=== PATIENT | female | born 1950 | race Caucasian/White ===

== ENCOUNTER 2018-05-29 01:17 | Outpatient (CLI) | payer MEDICARE, OTHER, SELFPAY ==
--- NOTE | 2018-05-29 13:00 | DI.CTLCSR_ITS ---
SYMPTOMS/DIAGNOSIS: SCREENING, FORMER SMOKER, Z87.[address], LUNG CANCER SCREENING PROTOCOL: Examination is compared to the previous examination of 09/10/17. Previous examination showed a 9 mm in diameter left basilar intrapulmonary nodule, which was subpleural in location. This is unchanged on the current examination. A few 3-4 mm nodules are also identified in the right lung, unchanged from the previous examination. No other significant new nodule or consolidation seen. No mediastinal or hilar adenopathy. The tracheobronchial tree appears intact. Visualized vascular structures are unremarkable. No pleural effusions seen. Images obtained through the upper abdomen show unremarkable appearance of visualized portions of the liver, spleen, and pancreas, and left adrenal and left kidney. CONCLUSION: Stable 9 mm left lower lobe nodule. Category 2, continue annual screening with LDCT in 12 months. Lung-RAD Category: 2- Benign Appearance/Behavior Lung- RAD Management of Findings: Continue annual LDCT screening in 12 months
== END 2018-05-29 01:37 ==
PROVIDERS: PCP Internal Medicine; Visit Provider Internal Medicine
DX: Z12.2 Encounter for screening for malignant neoplasm of respiratory organs (principal); Z87.891 Personal history of nicotine dependence; R91.1 Solitary pulmonary nodule
CPT/HCPCS: G0297

== ENCOUNTER 2018-07-25 12:46 | Inpatient (IN) | payer MEDICARE, OTHER, SELFPAY ==
[2018-07-25] VITALS (14 sets, daily range): BP systolic 131–154; BP diastolic 55–78; PULSE 59–80; RESP 14–27; TEMP 36.7–37.9; O2SAT 95–98
--- NOTE | 2018-07-25 12:51 | W.ED.GENAD ---
Discharge Plan Disposition Patient Disposition: [facility] INPATIENT Condition: Stable Discharge Details Chief Complaint: RespSymp Clinical Impression: Acute hypokalemia, General weakness Primary Care Provider: Mary Dorsey ED Provider: Chris Meyer Home Meds and New Rx's Prescriptions: No Action calcium carbonate-vitamin D3 [Calcium 500 + D] 1 EACH tablet 1 ea PO DAILY RF: 0 folic acid 1 MG tablet 800 mcg PO DAILY RF: 0 cetirizine [Zyrtec] 10 MG capsule 10 mg PO PRN RF: 0 selenomethionine 200 MCG tablet 200 mcg PO DAILY RF: 0 aspirin 81 MG tablet,chewable 81 mg PO DAILY RF: 0 multivitamin [Daily Multi-Vitamin] 1 EACH tablet 1 ea PO DAILY RF: 0 amlodipine 5 MG tablet 5 mg PO HS Qty: 90 RF: 2 pravastatin 40 MG tablet 40 mg PO DAILY Qty: 90 RF: 3 gabapentin 300 MG capsule PO TID Qty: 450 RF: 3 atenolol 50 mg tablet 75 mg PO HS Qty: 135 RF: 3 ranitidine HCl 150 mg tablet 150 mg PO BID Qty: 180 RF: 3 ibuprofen 600 MG tablet 600 mg PO TID Qty: 30 RF: 0 Medical Decision Making 68 yo female comes in with cough and general waekness since Monday. Denies recent travel, chest pain or pressure. Has clear lungs and is speaking in full sentences with normal lung sounds. Will evaluate for anemia, electrolyte abnormality and obtain chest xray as well to eval for infiltrate labs show K of 2.5 and she now states she has been having vomit for severeal days, still has no abdominal tenderness. She feels too weak to go home and can't tolerate PO. Will admit for potassium repletion given she can't tolerate PO Differential Diagnosis pna, influenza, viral illness Imaging Data Radiologic Study: Radiologist's impression: no acute findings Lab Data Lab results reviewed: Yes I reviewed the patient's lab results. ECG Data Attestation: I personally reviewed and interpreted this ECG (s) as follows: Prior ECG tracings: not available for review Interpretation: sinus rhythm, rate of 64, normal pr, no acute ischemic findings HPI General Mode of arrival: wheelchair. Date/Time Provider Initiated Documentation: 07/25/18 12:46. Limitations to Documentation: no limitations. Information obtained by: patient. History of Present Illness 68 year old F presents to the emergency department with the chief complaint of cough, described as moderate, Patient started experiencing this day(s) (4) and it has been constant. No relieving factors improve symptom(s), No exacerbating factors reported . Patient notes weakness. Patient did receive the following treatments prior to arrival, none Related Data Home Medications Medication Instructions Recorded Confirmed calcium carbonate-vitamin D3 1 ea PO DAILY 09/06/16 06/26/18 [Calcium 500 + D] cetirizine [Zyrtec] 10 mg PO PRN 01/19/17 06/26/18 folic acid 800 mcg PO DAILY tab-cap 01/19/17 06/26/18 selenomethionine 200 mcg PO DAILY 06/21/17 06/26/18 aspirin 81 mg PO DAILY tab-cap 07/26/17 06/26/18 multivitamin [Daily Multi-Vitamin] 1 ea PO DAILY 09/26/17 06/26/18 ibuprofen 600 mg PO TID #30 tab 10/25/17 06/26/18 amlodipine 5 mg PO HS #90 tab 12/13/17 06/26/18 gabapentin 0 PO TID #450 tab-cap 04/24/18 06/26/18 pravastatin 40 mg PO DAILY #90 tab-cap 04/24/18 06/26/18 atenolol 50 mg tablet 75 mg PO HS #135 tab 07/06/18 ranitidine 150 mg tablet 150 mg PO BID #180 tab-cap 07/06/18 Previous Rx's Medication Instructions Recorded ibuprofen 600 mg PO TID #30 tab 10/25/17 amlodipine 5 mg PO HS #90 tab 12/13/17 pravastatin 40 mg PO DAILY #90 tab-cap 04/24/18 atenolol 50 mg tablet 75 mg PO HS #135 tab 07/06/18 ranitidine 150 mg tablet 150 mg PO BID #180 tab-cap 07/06/18 Allergies Allergy/AdvReac Type Severity Reaction Status Date / Time codeine AdvReac Intermediate Nausea Unverified 06/26/18 12:23 hydrochlorothiazide AdvReac Mild hypomagnese Unverified 06/26/18 12:23 pop duloxetine AdvReac Other (See Unverified 06/26/18 12:23 Comment) narcotics AdvReac Intermediate Nausea, Uncoded 06/26/18 12:23 vomiting Review of Systems Review of Systems All systems reviewed & are unremarkable except as noted in HPI and below Constitutional Denies chills and Denies fever(s) Eyes Denies loss of vision ENT Denies change in voice Cardiovascular Denies chest pain and Denies dyspnea Respiratory Denies dyspnea Gastrointestinal Denies abdominal pain, Denies nausea and Denies vomiting Genitourinary Denies dysuria Musculoskeletal Denies joint swelling Integumentary/Breasts Denies rash Neurologic Denies loss of vision Allergic/Immunologic Denies urticaria PFSH Family History Father Essential hypertension Glaucoma Medical History Essential hypertension Hx of bacterial pneumonia Spinal stenosis Social History household members: none current occupational status: retired frequency: 3-4 times per week Smoking/Tobacco Use Status: Former Tobacco Use alcohol intake: never substance use type: marijuana Surgical History Anterior Fusion Cervical Spine C3-C5 (07/31/16) Arthroplasty of knee Breast, Lumpectomy Colonoscopy - MAC (03/12/18) Hemiarthroplasty (09/07/15) Repair of umbilical hernia Rotator Cuff Repair Tenotomy and debridement tendon L shoulder (10/25/17) Exam Const General: no acute distress Orientation: alert HENMT Head: normal to inspection Ears: external ears normal General nose exam: external nose normal Mouth: moist mucous membranes Eyes General: appearance normal, both eyes and all related structures Neck Neck: normal visual inspection Resp Effort & Inspection: normal respiratory effort and able to speak in complete sentences Cardio Rate: regular rate Skin General skin exam: no rashes or lesions noted Neuro General: alert and oriented x3 Extrem General: normal to inspection Psych Mental Status: mental status grossly normal
--- NOTE | 2018-07-25 12:56 | ED.GENADUL_ITS ---
Discharge Plan Disposition Patient Disposition: [facility] INPATIENT Condition: Stable Discharge Details Chief Complaint: RespSymp Clinical Impression: Acute hypokalemia, General weakness Primary Care Provider: Mary Dorsey ED Provider: Chris Meyer Home Meds and New Rx's Prescriptions: No Action calcium carbonate-vitamin D3 [Calcium 500 + D] 1 EACH tablet 1 ea PO DAILY RF: 0 folic acid 1 MG tablet 800 mcg PO DAILY RF: 0 cetirizine [Zyrtec] 10 MG capsule 10 mg PO PRN RF: 0 selenomethionine 200 MCG tablet 200 mcg PO DAILY RF: 0 aspirin 81 MG tablet,chewable 81 mg PO DAILY RF: 0 multivitamin [Daily Multi-Vitamin] 1 EACH tablet 1 ea PO DAILY RF: 0 amlodipine 5 MG tablet 5 mg PO HS Qty: 90 RF: 2 pravastatin 40 MG tablet 40 mg PO DAILY Qty: 90 RF: 3 gabapentin 300 MG capsule PO TID Qty: 450 RF: 3 atenolol 50 mg tablet 75 mg PO HS Qty: 135 RF: 3 ranitidine HCl 150 mg tablet 150 mg PO BID Qty: 180 RF: 3 ibuprofen 600 MG tablet 600 mg PO TID Qty: 30 RF: 0 Medical Decision Making 68 yo female comes in with cough and general waekness since Monday. Denies recent travel, chest pain or pressure. Has clear lungs and is speaking in full sentences with normal lung sounds. Will evaluate for anemia, electrolyte abnormality and obtain chest xray as well to eval for infiltrate labs show K of 2.5 and she now states she has been having vomit for severeal days, still has no abdominal tenderness. She feels too weak to go home and can' t tolerate PO. Will admit for potassium repletion given she can't tolerate PO Differential Diagnosis pna, influenza, viral illness Imaging Data Radiologic Study: Radiologist's impression: no acute findings Lab Data Lab results reviewed: Yes I reviewed the patient's lab results. ECG Data Attestation: I personally reviewed and interpreted this ECG (s) as follows: Prior ECG tracings: not available for review Interpretation: sinus rhythm, rate of 64, normal pr, no acute ischemic findings HPI General Mode of arrival: wheelchair . Date/Time Provider Initiated Documentation: 07/25/18 12:46 . Limitations to Documentation: no limitations . Information obtained by: patient . History of Present Illness 68 year old F presents to the emergency department with the chief complaint of cough, described as moderate, Patient started experiencing this day(s) (4) and it has been constant. No relieving factors improve symptom(s), No exacerbating factors reported . Patient notes weakness. Patient did receive the following treatments prior to arrival, none Related Data Home Medications Medication Instructions Recorded Confirmed calcium carbonate-vitamin D3 1 ea PO DAILY 09/06/16 06/26/18 [Calcium 500 + D] cetirizine [Zyrtec] 10 mg PO PRN 01/19/17 06/26/18 folic acid 800 mcg PO DAILY tab-cap 01/19/17 06/26/18 selenomethionine 200 mcg PO DAILY 06/21/17 06/26/18 aspirin 81 mg PO DAILY tab-cap 07/26/17 06/26/18 multivitamin [Daily Multi-Vitamin] 1 ea PO DAILY 09/26/17 06/26/18 ibuprofen 600 mg PO TID #30 tab 10/25/17 06/26/18 amlodipine 5 mg PO HS #90 tab 12/13/17 06/26/18 gabapentin 0 PO TID #450 tab-cap 04/24/18 06/26/18 pravastatin 40 mg PO DAILY #90 tab-cap 04/24/18 06/26/18 atenolol 50 mg tablet 75 mg PO HS #135 tab 07/06/18 ranitidine 150 mg tablet 150 mg PO BID #180 tab-cap 07/06/18 Previous Rx's Medication Instructions Recorded ibuprofen 600 mg PO TID #30 tab 10/25/17 amlodipine 5 mg PO HS #90 tab 12/13/17 pravastatin 40 mg PO DAILY #90 tab-cap 04/24/18 atenolol 50 mg tablet 75 mg PO HS #135 tab 07/06/18 ranitidine 150 mg tablet 150 mg PO BID #180 tab-cap 07/06/18 Allergies Allergy/AdvReac Type Severity Reaction Status Date / Time codeine AdvReac Intermediate Nausea Unverified 06/26/18 12:23 hydrochlorothiazide AdvReac Mild hypomagnese Unverified 06/26/18 12:23 pop duloxetine AdvReac Other (See Unverified 06/26/18 12:23 Comment) narcotics AdvReac Intermediate Nausea, Uncoded 06/26/18 12:23 vomiting Review of Systems Review of Systems All systems reviewed & are unremarkable except as noted in HPI and below Constitutional Denies chills and Denies fever(s) Eyes Denies loss of vision ENT Denies change in voice Cardiovascular Denies chest pain and Denies dyspnea Respiratory Denies dyspnea Gastrointestinal Denies abdominal pain, Denies nausea and Denies vomiting Genitourinary Denies dysuria Musculoskeletal Denies joint swelling Integumentary/Breasts Denies rash Neurologic Denies loss of vision Allergic/Immunologic Denies urticaria PFSH Family History Father Essential hypertension Glaucoma Medical History Essential hypertension Hx of bacterial pneumonia Spinal stenosis Social History household members: none current occupational status: retired frequency: 3-4 times per week Smoking/Tobacco Use Status: Former Tobacco Use alcohol intake: never substance use type: marijuana Surgical History Anterior Fusion Cervical Spine C3-C5 (07/31/16) Arthroplasty of knee Breast, Lumpectomy Colonoscopy - MAC (03/12/18) Hemiarthroplasty (09/07/15) Repair of umbilical hernia Rotator Cuff Repair Tenotomy and debridement tendon L shoulder (10/25/17) Exam Const General: no acute distress Orientation: alert HENMT Head: normal to inspection Ears: external ears normal General nose exam: external nose normal Mouth: moist mucous membranes Eyes General: appearance normal, both eyes and all related structures Neck Neck: normal visual inspection Resp Effort & Inspection: normal respiratory effort and able to speak in complete sentences Cardio Rate: regular rate Skin General skin exam: no rashes or lesions noted Neuro General: alert and oriented x3 Extrem General: normal to inspection Psych Mental Status: mental status grossly normal
[2018-07-25 13:12] LABS: Lactate-non-spesis 1.2 mmol/L (0.6-1.4)
[2018-07-25 13:13] LABS: Abs Immature Grans 0.03 k/cumm (0.0-0.09); Absolute Basophil Count 0.02 k/cumm (0.0-0.2); Absolute Eosinophil Count 0.05 k/cumm (0.0-0.7); Absolute Lymphocyte Count 1.44 k/cumm (1.2-3.4); Absolute Monocyte Count 1.01 k/cumm (0.11-0.7); Absolute Neutrophil Count 7.23 k/cumm (1.2-6.7); Basophils % 0.2; Eosinophils % 0.5; HGB 13.3 g/dL (12.0-15.5); Immature Grans % 0.3; Lymphocytes % 14.7; Mean Corpuscular Hemoglobin 30.6 pg (27.0-33.0); Mean Corpuscular Volume 87.6 fL (80-95); Mean Platelet Volume 11.3 fL (8.0-11.0); Monocytes % 10.3; Platelet Count 177 x1000/uL (130-400); RBC 4.34 m/cumm (4.00-5.20); RBC Distribution Width 12.4 % (11.7-14.6); White Blood Cell Count 9.78 k/cumm (4.4-10.8)
[2018-07-25] MEDS: Normal Saline 1,000 ML 1000 ML IV (13:20)
[2018-07-25 13:28] LABS: INR 1.1 (1.0-3.5); PTT Activated 23.2 sec (21.0-31.4); Prothrombin Time 11.1 sec (9.3-10.8)
--- NOTE | 2018-07-25 13:28 | DI.RAD_ITS ---
SYMPTOM/DIAGNOSIS: COUGH AP AND LATERAL CHEST: The lungs are well expanded and free of infiltrate. There is no pleural effusion. The cardiovascular structures are intact. Note is made of a mild rotoscoliotic deformity of the mid and lower dorsal spine. Note is also made of a left TSR. An anchor is affixed to the head of the right humerus consistent with prior surgery as well. IMPRESSION: No evidence of acute cardiopulmonary disease.
[2018-07-25 13:47] LABS: ALT 29 U/L (12-78); AST 41 U/L (15-37); Albumin 3.5 g/dL (3.4-5.0); Alkaline Phosphatase 78 U/L (46-116); Anion Gap 12.2 mmol/L (3-11); BUN 24 mg/dL (7-18); Bilirubin, Direct 0.24 mg/dL (0.00-0.20); Bilirubin, Total 1.1 mg/dL (0.2-1.0); CO2 25.8 mmol/L (21.0-32.0); CREATININE 0.74 mg/dL (0.55-1.02); Calcium 9.1 mg/dL (8.5-10.1); Chloride 96 mmol/L (98-107); Glucose 108 mg/dL (70-100); Lipase 121 U/L (73-393); Sodium 134 mmol/L (136-145); Total Protein 7.3 g/dL (6.4-8.2)
[2018-07-25 13:50] LABS: Potassium 2.5 mmol/L (3.5-5.1)
[2018-07-25] MEDS: Ondansetron 4 MG/2 ML VIAL IVP (14:24)
[2018-07-25] MEDS: POTASSIUM CHLORIDE 20 MEQ/100 ML BAG 50 MEQ IVPB ×2 (14:25→16:36)
[2018-07-25] MEDS: Normal Saline 1,000 ML 150 ML IV ×2 (15:30→21:30)
[2018-07-25 15:59] LABS: Magnesium 1.4 mg/dL (1.8-2.4)
[2018-07-25] MEDS: Enoxaparin 40 MG/0.4 ML SYR SC (16:14)
--- NOTE | 2018-07-25 17:17 | W.PM.HP.N ---
Date of service: 07/25/18 Time of Service: 17:18 Assessment and Plan (1) Cough: Current visit: Yes Status: Acute She notes that her cough seems to be improving. She is producing less sputum. She also has associated nausea and vomiting. Chest x-ray negative. No leukocytosis. No fever. Continue to monitor respiratory status. Consider repeat chest x-ray if indicated. Reassess labs in the morning. Have antiemetics available for PRN use. Clear liquid diet. Continue supportive measures. (2) Essential hypertension: Current visit: No Status: Acute Blood pressure currently stable. Continue to monitor blood pressures. Continue home antihypertensive medications. (3) Hypomagnesemia: Current visit: No Status: Acute Received magnesium supplementation. Reassess magnesium level in the morning. (4) Hypokalemia: Current visit: Yes Status: Acute Received potassium supplementation. Reassess potassium in the morning. (5) DVT prophylaxis: Current visit: Yes Status: Acute Subcutaneous Lovenox. (6) Discharge planning issues: Current visit: Yes Status: Acute She is a full code. This case was discussed with Dr. Swani who is in agreement. History of Present Illness Chief Complaint: Cough, nausea and vomiting. Narrative: Belén is a pleasant 68-year-old female with a past medical history significant for hypertension, spinal stenosis, pneumonia, chronic medical marijuana use who presented to the emergency department today with a 3-day history of cough, nausea, vomiting and inability to maintain oral intake. In the emergency department she was noted to have hypokalemia with a potassium of 2.5 and received supplementation her anion gap was elevated at 12.2 BUN was elevated at 24, creatinine was normal at 04. Her magnesium was low at 1.4 which she received supplementation for. She had a white blood cell count that was within normal limits, she did not have anemia. There was concern for pneumonia she had a chest x-ray which showed no evidence of acute cardiopulmonary disease. She was unable to maintain oral intake and did have a critically low potassium so she was admitted to the [facility] floor for supplementation of her electrolytes, IV fluids and supportive measures. Review of Systems Review of Systems Constitutional: She denies having a fever but she did experience chills at home. HEENT: She did have a headache for 2 days but that has since resolved. Respiratory: She notes a cough with white sputum production, the sputum was initially described as frothy, her cough is improving but persistent. She notes mild shortness of breath. She denies wheezing. Cardiac: She denies chest pain/pressure, palpitations, edema. GI: She notes nausea and vomiting when she puts anything in her mouth. She also notes that she vomits after coughing fits. She has not been able to tolerate oral intake. Her appetite is poor. She does not have any abdominal pain except some muscular discomfort when she attempts to pull herself up in bed. She denies any diarrhea. She feels her last bowel movement was within the last 2 days. : She has some mild incontinence at baseline. No dysuria, hematuria, frequency or urgency of urination. Musculoskeletal: She has chronic pain to her cervical spine and peripheral neuropathy. She has no pain. Skin: No new rash or lesion. PFSH Family History Father Essential hypertension Glaucoma Medical History Essential hypertension Hx of bacterial pneumonia Spinal stenosis Social History household members: none current occupational status: retired frequency: 3-4 times per week Smoking/Tobacco Use Status: Former Tobacco Use alcohol intake: never substance use type: marijuana Surgical History Anterior Fusion Cervical Spine C3-C5 (07/31/16) Arthroplasty of knee Breast, Lumpectomy Colonoscopy - MAC (03/12/18) Hemiarthroplasty (09/07/15) Repair of umbilical hernia Rotator Cuff Repair Tenotomy and debridement tendon L shoulder (10/25/17) Meds Home Medications Medication Instructions Recorded Confirmed Type calcium carbonate-vitamin D3 1 ea PO DAILY 09/06/16 07/25/18 History [Calcium 500 + D] cetirizine [Zyrtec] 10 mg PO PRN 01/19/17 07/25/18 History folic acid 800 mcg PO DAILY tab-cap 01/19/17 07/25/18 History selenomethionine 200 mcg PO DAILY 06/21/17 07/25/18 History aspirin 81 mg PO DAILY tab-cap 07/26/17 07/25/18 History multivitamin [Daily Multi-Vitamin] 1 ea PO DAILY 09/26/17 07/25/18 History amlodipine 5 mg PO HS #90 tab 12/13/17 07/25/18 Rx gabapentin 300 mg PO TID #450 tab-cap 04/24/18 07/25/18 History pravastatin 40 mg PO DAILY #90 tab-cap 04/24/18 07/25/18 Rx atenolol 50 mg tablet 75 mg PO HS #135 tab 07/06/18 07/25/18 Rx ranitidine 150 mg tablet 150 mg PO BID #180 tab-cap 07/06/18 07/25/18 Rx ibuprofen 600 mg PO BID 07/25/18 07/25/18 History Allergies Allergy/AdvReac Type Severity Reaction Status Date / Time codeine AdvReac Intermediate Nausea Unverified 07/25/18 14:12 hydrochlorothiazide AdvReac Mild hypomagnese Unverified 07/25/18 14:12 ppo duloxetine AdvReac Other (See Unverified 07/25/18 14:12 Comment) narcotics AdvReac Intermediate Nausea, Uncoded 07/25/18 14:12 vomiting Exam Narrative Exam Narrative: General: awake, alert and oriented. Pleasant and cooperative. Appears mildly dry on exam. HEENT: normocephalic, atraumatic. Pupils equal round and reactive to light, mucous membranes are slightly dry. Neck: Supple without lymphadenopathy or JVD. Respiratory: Respirations are even and unlabored. Lung sounds are clear to auscultation throughout all barron, no rales, rhonchi or wheezing noted. Cardiovascular: Heart has a regular rate and rhythm, no tachycardia. No murmur, click, gallop or rub. GI: Abdomen soft, nontender on palpation, no masses appreciated. Hypoactive bowel sounds throughout. Extremities: Without clubbing, cyanosis or edema. She has MAX stockings on bilaterally. Peripheral pulses are palpable bilaterally. Skin: no prominent rash or lesion noted.: Results Labs : 07/25/18 13:05 07/25/18 13:05 Laboratory Results - last 24 hr 07/25/18 07/25/18 07/25/18 13:05 13:05 13:05 WBC 9.78 RBC 4.34 Hgb 13.3 Hct 38.0 MCV 87.6 MCH 30.6 MCHC 35.0 RDW 12.4 Plt Count 177 MPV 11.3 H Immature Gran % 0.3 Neutrophils % 74.0 Lymphocytes % 14.7 Monocytes % 10.3 Eosinophils % 0.5 Basophils % 0.2 Absolute Neutrophils 7.23 H Absolute Lymphocytes 1.44 Absolute Monocytes 1.01 H Absolute Eosinophils 0.05 Absolute Basophils 0.02 PT INR APTT Sodium 134 L Potassium 2.5 L* Chloride 96 L Carbon Dioxide 25.8 Anion Gap 12.2 H BUN 24 H Creatinine 0.74 Estimated GFR/1.73 m2 >= 60.00 Glucose 108 H Lactate 1.2 Calcium 9.1 Magnesium 1.4 L Total Bilirubin 1.1 H Conjugated Bilirubin 0.24 H AST 41 H ALT 29 Alkaline Phosphatase 78 Total Protein 7.3 Albumin 3.5 Lipase 121 07/25/18 13:05 WBC RBC Hgb Hct MCV MCH MCHC RDW Plt Count MPV Immature Gran % Neutrophils % Lymphocytes % Monocytes % Eosinophils % Basophils % Absolute Neutrophils Absolute Lymphocytes Absolute Monocytes Absolute Eosinophils Absolute Basophils PT 11.1 H INR 1.1 APTT 23.2 Sodium Potassium Chloride Carbon Dioxide Anion Gap BUN Creatinine Estimated GFR/1.73 m2 Glucose Lactate Calcium Magnesium Total Bilirubin Conjugated Bilirubin AST ALT Alkaline Phosphatase Total Protein Albumin Lipase Last Vital Signs Temp 37.3 C 07/25/18 16:00 Pulse 69 07/25/18 16:00 Resp 18 07/25/18 16:00 BP 150/62 H 07/25/18 16:00 Pulse Ox 97 07/25/18 16:00
[2018-07-25] MEDS: MAGNESIUM SULFATE 1 GM/100 ML BAG IVPB (18:55)
[2018-07-25] MEDS: Gabapentin 300 MG CAP 600 MG PO (19:41)
[2018-07-25] MEDS: Atenolol 50 MG TAB 75 MG PO (19:41)
[2018-07-25] MEDS: amLODIPine 5 MG TAB PO (19:42)
[2018-07-26] VITALS: BP 143/75; PULSE 66; RESP 18; TEMP 36.6; O2SAT 96
[2018-07-26] MEDS: Normal Saline 1,000 ML 150 ML IV ×2 (04:19→10:09)
[2018-07-26 07:35] VITALS: BP 145/66; PULSE 60; RESP 16; TEMP 36.8; O2SAT 95
[2018-07-26 07:39] LABS: Abs Immature Grans 0.01 k/cumm (0.0-0.09); Absolute Basophil Count 0.02 k/cumm (0.0-0.2); Absolute Eosinophil Count 0.21 k/cumm (0.0-0.7); Absolute Lymphocyte Count 1.76 k/cumm (1.2-3.4); Absolute Monocyte Count 0.76 k/cumm (0.11-0.7); Basophils % 0.3; Eosinophils % 2.9; HGB 11.3 g/dL (12.0-15.5); Immature Grans % 0.1; Lymphocytes % 24.2; Mean Corp. HGB Concentration 33.2 g/dL (32.0-36.0); Mean Corpuscular Hemoglobin 30.1 pg (27.0-33.0); Mean Corpuscular Volume 90.7 fL (80-95); Mean Platelet Volume 11.8 fL (8.0-11.0); Monocytes % 10.5; Platelet Count 144 x1000/uL (130-400); RBC 3.75 m/cumm (4.00-5.20); RBC Distribution Width 12.9 % (11.7-14.6); White Blood Cell Count 7.26 k/cumm (4.4-10.8)
[2018-07-26 08:04] LABS: ALT 20 U/L (12-78); AST 24 U/L (15-37); Albumin 2.6 g/dL (3.4-5.0); Alkaline Phosphatase 60 U/L (46-116); Anion Gap 7.7 mmol/L (3-11); BUN 18 mg/dL (7-18); CO2 23.3 mmol/L (21.0-32.0); CREATININE 0.73 mg/dL (0.55-1.02); Calcium 7.9 mg/dL (8.5-10.1); Chloride 106 mmol/L (98-107); Glucose 106 mg/dL (70-100); Magnesium 1.5 mg/dL (1.8-2.4); Potassium 3.2 mmol/L (3.5-5.1); Sodium 137 mmol/L (136-145); Total Protein 5.6 g/dL (6.4-8.2)
[2018-07-26] MEDS: Aspirin 81 MG CHEW PO (08:52)
[2018-07-26] MEDS: Folic Acid 1 MG TAB PO (08:52)
[2018-07-26] MEDS: Pravastatin 40 MG TAB PO (08:52)
[2018-07-26] MEDS: Multivitamin TAB 1 TAB PO (08:52)
[2018-07-26] MEDS: Gabapentin 300 MG CAP 600 MG PO ×2 (08:53→20:12)
--- NOTE | 2018-07-26 10:53 | PHARADMIT ---
Addendum entered by Cong De Anda III 07/27/18 12:44: Pharmacy Note Subjective URINE MIXED CULTURE on Rocephin IV. Patient experiencing some nausea, on IV antiemetics. Has non-productive cough. Objective VS-OK K+4.2 Mag-1.7 H&H-Plts,SCr, WBC-OK No BM yet Assessment On Lovenox, Rocephin continues. Plan Speech consult ordered, to evaluate swalllowing. Original Note: Admission Pharmacy Clinical Review nausea/vomiting, Hypokalemia Code Status Full Code Current Weight Wgt- 57.5 kg Renally Cleared and Narrow Therapeutic Index Meds CrCl~53.23 mL/min Meds-OK QTc Value / Action Taken QTc-446 Ondanestron BP Control, Fever BP-145/66 Tmax- 37.9C Electrolytes reviewed Na- 137 K+3.2 Mag-1.5 DVT Prophylaxis Lovenox Opiate Usage / Scheduled Bowel Regimen Ordered No Yes Plt/SCr for Heparin / Enoxaparin Plts-144 SCr-0.73 INR for Warfarin inr-1.1 H/H stable, WBC/Bands H&H- 11.3/34.0 WBC-7.26 Antibiotic appropriateness None Cultures and Sensitivities Nose- Flu-negative Surgical ABX d/c within 24 hr NA DM control / Insulin Dosing BG-106 Heart Failure (Check EF%) (ANA's, B-Block, Diuretics) Norvasc,Atenolol, IV to PO Switch No Home Meds Reviewed Yes Home Meds Not Ordered Ibuprofen Comments PatOwn-Selenium
--- NOTE | 2018-07-26 11:36 | CHAPLAIN ---
Belén was resting in bed when I visited. She said she is feeling better and getting a little hungry, hoping to be able to have something to eat after her scheduled scan. She doesn't have any family in the area, but thinks some friends may be in to visit her. Belén has a dog and several cats that keep her company at home. The cats all found their way to her home and she took them in. She seems to be comfortable being here.
--- NOTE | 2018-07-26 11:59 | PGE_ITS ---
Assessment and Plan (1) Cough: Current visit: Yes Status: Acute Cough improving but persistent. She is producing less sputum. She had an elevated temperature overnight to 37.9. Chest x-ray in the ED was negative. No leukocytosis. Continue to monitor respiratory status. Given that lung exam has changed from admission, plan to repeat chest x-ray. Reassess labs in the morning. Have antiemetics available PRN for nausea. UA pending. Advance diet as tolerated. Continue supportive measures. (2) Essential hypertension: Current visit: No Status: Acute Blood pressure currently stable. Continue to monitor blood pressures. Continue home antihypertensive medications. (3) Hypomagnesemia: Current visit: No Status: Acute Remains low today at 1.5. Received magnesium supplementation. Reassess magnesium level in the morning. (4) Hypokalemia: Current visit: Yes Status: Acute Remains low, but improved at 3.2. Received potassium supplementation again today. Reassess potassium in the morning. (5) DVT prophylaxis: Current visit: Yes Status: Acute Subcutaneous Lovenox. (6) Discharge planning issues: Current visit: Yes Status: Acute She is a full code. This case was discussed with Dr. Swain who is in agreement. Subjective Interval history since last seen: Belén is a pleasant 68-year-old female with a past medical history significant for hypertension, spinal stenosis, pneumonia, chronic medical marijuana use who presented to the emergency department yesterday with a 3-day history of cough, nausea, vomiting and inability to maintain oral intake. In the emergency department she was noted to have hypokalemia with a potassium of 2.5 she received supplementation and potassium improved to 3.2 today. Her magnesium was low at 1.4, she received supplementation with improvement to 1.5 today. She had a white blood cell count that was within normal limits, she did not have anemia. There was concern for pneumonia she had a chest x-ray which showed no evidence of acute cardiopulmonary disease. her temperature maximum was 37.9 overnight. Today, she has not vomited, she continues to have intermittent nausea, she feels bloated, she is passing gas. She has not had a bowel movement today. She has no abdominal pain, she did have some muscular discomfort to the right side of her abdomen, which has resolved today. Her cough is improving, she has very little sputum production, it is white and thin, she does not feel short of breath, no wheezing. She continues to feel generally weak. She is taking clear liquids without difficulty. She would like to increase her diet. She denies chest pain/pressure, palpitations, no swelling, pain or stiffness of her joints. Exam Narrative Exam Narrative: General: awake, alert and oriented. Pleasant and cooperative. Sitting in bed, watching TV. HEENT: normocephalic, atraumatic. Pupils equal and round, mucous membranes moist. Neck: Supple without lymphadenopathy or JVD. Respiratory: Respirations are even and unlabored. Fine crackles to right base, rhonchi noted throughout lung barron. Cardiovascular: Heart has a regular rate and rhythm, no tachycardia. No murmur , click, gallop or rub. GI: Abdomen soft, nontender on palpation, no masses appreciated. Normoactive bowel sounds throughout. Extremities: Without clubbing, cyanosis or edema. She has MAX stockings on bilaterally. Peripheral pulses are palpable bilaterally. Skin: no prominent rash or lesion noted.: Objective Objective Clinical Data: Abnormal lab results 07/25/18 07/25/18 07/25/18 Range/Units 13:05 13:05 13:05 RBC (4.00-5.20) m/cumm Hgb (12.0-15.5) g/dL Hct (36.0-46.0) % MPV 11.3 H (8.0-11.0) fL Absolute Neutrophils 7.23 H (1.2-6.7) k/cumm Absolute Monocytes 1.01 H (0.11-0.7) k/cumm PT 11.1 H (9.3-10.8) sec Sodium 134 L (136-145) mmol/L Potassium 2.5 L* (3.5-5.1) mmol/L Chloride 96 L (98-107) mmol/L Anion Gap 12.2 H (3-11) mmol/L BUN 24 H (7-18) mg/dL Glucose 108 H (70-100) mg/dL Calcium (8.5-10.1) mg/dL Magnesium 1.4 L (1.8-2.4) mg/dL Total Bilirubin 1.1 H (0.2-1.0) mg/dL Conjugated Bilirubin 0.24 H (0.00-0.20) mg/dL AST 41 H (15-37) U/L Total Protein (6.4-8.2) g/dL Albumin (3.4-5.0) g/dL 07/26/18 07/26/18 Range/Units 06:20 06:20 RBC 3.75 L (4.00-5.20) m/cumm Hgb 11.3 L (12.0-15.5) g/dL Hct 34.0 L (36.0-46.0) % MPV 11.8 H (8.0-11.0) fL Absolute Neutrophils (1.2-6.7) k/cumm Absolute Monocytes 0.76 H (0.11-0.7) k/cumm PT (9.3-10.8) sec Sodium (136-145) mmol/L Potassium 3.2 L (3.5-5.1) mmol/L Chloride (98-107) mmol/L Anion Gap (3-11) mmol/L BUN (7-18) mg/dL Glucose 106 H (70-100) mg/dL Calcium 7.9 L (8.5-10.1) mg/dL Magnesium 1.5 L (1.8-2.4) mg/dL Total Bilirubin (0.2-1.0) mg/dL Conjugated Bilirubin (0.00-0.20) mg/dL AST (15-37) U/L Total Protein 5.6 L (6.4-8.2) g/dL Albumin 2.6 L (3.4-5.0) g/dL Vital Signs Temperature 36.8 C 07/26/18 07:35 Temperature Source Skin 07/26/18 07:35 Pulse 60 07/26/18 07:35 Pulse Rhythm Regular 07/26/18 00:00 Pulse 71 07/25/18 14:48 Respiratory Rate 16 07/26/18 07:35 Respiratory Effort Non-Labored 07/26/18 00:00 Respiratory Depth Normal 07/26/18 00:00 Respiratory Pattern Normal 07/26/18 00:00 Blood Pressure 145/66 H 07/26/18 07:35 Blood Pressure Mean 80 07/25/18 14:48 Blood Pressure Position Sitting 07/25/18 12:51 Pulse Oximetry 95 07/26/18 07:35 Oxygen Delivery Method Room Air 07/26/18 07:35 Oxygen Flow Rate 0 07/26/18 07:35 Pain Level 0 07/26/18 07:37 Comment 07/26/18 07:35 Intake & Output 07/25/18 07/25/18 07/26/18 11:59 23:59 11:59 Intake Total 2250 / 0 2375 / 2375 Output Total 400 / 400 Balance 2250 / 2250 1974 Weight 57.5 kg Intake: IV 2250 / 2250 2074 Oral 300 / 300 Output: Urine 400 / 400 Other: Urine Color Light Chen Urine Appearance Clear Comment voided in the toilet x 2 Voiding Methods Toilet Toilet Laboratory Results WBC 7.26 k/cumm (4.4-10.8) 07/26/18 06:20 RBC 3.75 m/cumm (4.00-5.20) L 07/26/18 06:20 Hgb 11.3 g/dL (12.0-15.5) L 07/26/18 06:20 Hct 34.0 % (36.0-46.0) L 07/26/18 06:20 MCV 90.7 fL (80-95) D 07/26/18 06:20 MCH 30.1 pg (27.0-33.0) 07/26/18 06:20 MCHC 33.2 g/dL (32.0-36.0) 07/26/18 06:20 RDW 12.9 % (11.7-14.6) 07/26/18 06:20 Plt Count 144 x1000/uL (130-400) 07/26/18 06:20 MPV 11.8 fL (8.0-11.0) H 07/26/18 06:20 Immature Gran % 0.1 07/26/18 06:20 Neutrophils % 62.0 07/26/18 06:20 Lymphocytes % 24.2 07/26/18 06:20 Monocytes % 10.5 07/26/18 06:20 Eosinophils % 2.9 07/26/18 06:20 Basophils % 0.3 07/26/18 06:20 Absolute Neutrophils 4.50 k/cumm (1.2-6.7) 07/26/18 06:20 Absolute Lymphocytes 1.76 k/cumm (1.2-3.4) 07/26/18 06:20 Absolute Monocytes 0.76 k/cumm (0.11-0.7) H 07/26/18 06:20 Absolute Eosinophils 0.21 k/cumm (0.0-0.7) 07/26/18 06:20 Absolute Basophils 0.02 k/cumm (0.0-0.2) 07/26/18 06:20 PT 11.1 sec (9.3-10.8) H 07/25/18 13:05 INR 1.1 (1.0-3.5) 07/25/18 13:05 APTT 23.2 sec (21.0-31.4) 07/25/18 13:05 Sodium 137 mmol/L (136-145) 07/26/18 06:20 Potassium 3.2 mmol/L (3.5-5.1) L 07/26/18 06:20 Chloride 106 mmol/L (98-107) 07/26/18 06:20 Carbon Dioxide 23.3 mmol/L (21.0-32.0) 07/26/18 06:20 Anion Gap 7.7 mmol/L (3-11) 07/26/18 06:20 BUN 18 mg/dL (7-18) D 07/26/18 06:20 Creatinine 0.73 mg/dL (0.55-1.02) 07/26/18 06:20 Estimated GFR/1.73 m2 >= 60.00 (mL/min/1.73m2) 07/26/18 06:20 Glucose 106 mg/dL (70-100) H 07/26/18 06:20 Lactate 1.2 mmol/L (0.6-1.4) 07/25/18 13:05 Calcium 7.9 mg/dL (8.5-10.1) L 07/26/18 06:20 Magnesium 1.5 mg/dL (1.8-2.4) L 07/26/18 06:20 Total Bilirubin 1.0 mg/dL (0.2-1.0) 07/26/18 06:20 Conjugated Bilirubin 0.24 mg/dL (0.00-0.20) H 07/25/18 13:05 AST 24 U/L (15-37) 07/26/18 06:20 ALT 20 U/L (12-78) 07/26/18 06:20 Alkaline Phosphatase 60 U/L (46-116) 07/26/18 06:20 Total Protein 5.6 g/dL (6.4-8.2) L 07/26/18 06:20 Albumin 2.6 g/dL (3.4-5.0) L 07/26/18 06:20 Lipase 121 U/L (73-393) 07/25/18 13:05
--- NOTE | 2018-07-26 12:08 | PDOC.CMIN ---
- If Service Date Differs Date of service: 07/26/18 Time of Service: 12:08 Care Management Initial Assess REASON FOR HOSPITALIZATION:: Hypertension, Hypomagensemia, Hypokalemia PAST MEDICAL HISTORY/PAST SURGICAL HISTORY:: Essential hypertension. Hx of bacterial pneumonia. Spinal stenosis. 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 Arthroplasty of knee. Breast, Lumpectomy. Colonoscopy - MAC (03/12/18). Hemiarthroplasty (09/07/15). Repair of umbilical hernia. Rotator Cuff Repair. Tenotomy and debridement tendon L shoulder (10/25/17) PREVIOUS FUNCTIONAL STATUS/SOCIAL/FAMILY SUPPORTS:: Belén resides alone in [facility], she states that she has family whom live 4+ hours away. Belén states that she has no children, and that she turns to her neighbors/friends for support. Ninoska is independent in the community, she drives, and states that she cares for her one dog and seven cats at home. CURRENT FUNCTIONAL STATUS:: Currently Belén is lying in bed this morning. She is pleasant and receptive to discussion. ADVANCE DIRECTIVES:: None on file Has patient been provided with information about the portal?: Yes Did the patient sign up for the portal?: No CODE STATUS:: Full Code INSURANCE COVERAGE / FINANCIAL ISSUES:: Medicare, Care and [employer] CURRENT HOME/COMMUNITY SERVICES/EQUIPMENT:: Currently Belén states that she goes to outpatient PT with Michael TOURE weekly. She states that this is due to spinal surgery she had. Belén states that she has a cane that she uses at home, as well as grab bars in her shower. PRIMARY CARE PHYSICIAN:: Dr. Dorsey POTENTIAL DISCHARGE NEEDS:: F/U appointment with PCP. Resume outpatient PT with Michael Avila in [facility] PATIENT/FAMILY EDUCATION NEEDS:: Review DC instructions, any limitations, and ongoing DC planning discussion. Discuss 'Ask Me Three' ANTICIPATED BARRIERS TO DISCHARGE:: None identified at this time. TRANSPORTATION:: Via private vehicle with neighbor PLAN:: Belén will return home with continued outpatient PT through Michael Avila in [facility]. She will F/U with PCP and plan of care as prescribed. Belén's neighbor/friend to transport when ready.
--- NOTE | 2018-07-26 12:24 | DI.RAD_ITS ---
SYMPTOM/DIAGNOSIS: F/U, COUGH, GENERAL WEAKNESS PA AND LATERAL CHEST: The lungs are free of infiltrate. There is some slight blunting of the costophrenic angles likely representing a very small pleural effusion. The heart is not enlarged. The hilar structures, mediastinum and tracheal air column are intact. SUMMARY: Question small bilateral pleural effusion, nil else.
--- NOTE | 2018-07-26 13:03 | INITIAL_ITS ---
- If Service Date Differs Date of service: 07/26/18 Time of Service: 12:08 Care Management Initial Assess REASON FOR HOSPITALIZATION:: Hypertension, Hypomagensemia, Hypokalemia PAST MEDICAL HISTORY/PAST SURGICAL HISTORY:: Essential hypertension. Hx of bacterial pneumonia. Spinal stenosis. Anterior Fusion Cervical Spine C3-C5 (). Arthroplasty of knee. Breast, Lumpectomy. Colonoscopy - MAC (). Hemiarthroplasty (09/07/15). Repair of umbilical hernia. Rotator Cuff Repair. Tenotomy and debridement tendon L shoulder (10/25/17) PREVIOUS FUNCTIONAL STATUS/SOCIAL/FAMILY SUPPORTS:: Belén resides alone in [facility], she states that she has family whom live 4+ hours away. Belén states that she has no children, and that she turns to her neighbors/friends for support. [place] is independent in the community, she drives, and states that she cares for her one dog and seven cats at home. CURRENT FUNCTIONAL STATUS:: Currently Belén is lying in bed this morning. She is pleasant and receptive to discussion. ADVANCE DIRECTIVES:: None on file Has patient been provided with information about the portal?: Yes Did the patient sign up for the portal?: No CODE STATUS:: Full Code INSURANCE COVERAGE / FINANCIAL ISSUES:: Medicare, [employer] CURRENT HOME/COMMUNITY SERVICES/EQUIPMENT:: Currently Belén states that she goes to outpatient PT with Michael TOURE weekly. She states that this is due to spinal surgery she had. Belén states that she has a cane that she uses at home, as well as grab bars in her shower. PRIMARY CARE PHYSICIAN:: Dr. Dorsey POTENTIAL DISCHARGE NEEDS:: F/U appointment with PCP. Resume outpatient PT with Michael Avila in [facility] PATIENT/FAMILY EDUCATION NEEDS:: Review DC instructions, any limitations, and ongoing DC planning discussion. Discuss 'Ask Me Three' ANTICIPATED BARRIERS TO DISCHARGE:: None identified at this time. TRANSPORTATION:: Via private vehicle with neighbor PLAN:: Belén will return home with continued outpatient PT through Michael Avila in [facility]. She will F/U with PCP and plan of care as prescribed. Belén's neighbor/friend to transport when ready.
[2018-07-26 14:32] VITALS: BP 153/97; PULSE 70; RESP 20; O2SAT 98
[2018-07-26 14:37] LABS: Bilirubin Negative (Negative); Blood Trace-lysed (Negative); Clarity Sl Cloudy; Glucose Negative (Negative); Ketones Negative (Negative); Leukocyte Esterase Moderate (Negative); Nitrite Negative (Negative); pH 6.5 (5-8)
[2018-07-26] MEDS: Gabapentin 300 MG CAP PO (14:37)
[2018-07-26 14:46] LABS: Bacteria Moderate HPF (Negative); Crystals Negative HPF (Negative); Epithelial Cells Few HPF (Negative); Mucus Trace (Negative); Other Cells Few Transitional (Negative); WBC 20-50 HPF (0-5)
[2018-07-26 14:47] LABS: C & S Indicated? Yes; Casts Negative LPF (Negative)
[2018-07-26] MEDS: Enoxaparin 40 MG/0.4 ML SYR SC (15:50)
[2018-07-26 16:25] VITALS: BP 143/75; PULSE 70; RESP 18; TEMP 36.7; O2SAT 98
[2018-07-26] MEDS: Acetaminophen 325 MG TAB PO (18:54)
[2018-07-26] MEDS: Normal Saline Flush 10 ML SYR IVP (20:12)
[2018-07-26 23:02] VITALS: BP 115/73; PULSE 71; RESP 16; TEMP 37.3; O2SAT 96
[2018-07-26] MEDS: Atenolol 50 MG TAB 75 MG PO (23:03)
[2018-07-26] MEDS: amLODIPine 5 MG TAB PO (23:04)
[2018-07-27 07:16] LABS: HGB 11.6 g/dL (12.0-15.5); Mean Corp. HGB Concentration 33.1 g/dL (32.0-36.0); Mean Corpuscular Hemoglobin 30.1 pg (27.0-33.0); Mean Corpuscular Volume 90.9 fL (80-95); Mean Platelet Volume 12.2 fL (8.0-11.0); Platelet Count 145 x1000/uL (130-400); RBC 3.85 m/cumm (4.00-5.20); RBC Distribution Width 12.9 % (11.7-14.6); White Blood Cell Count 8.73 k/cumm (4.4-10.8)
[2018-07-27 07:28] VITALS: BP 141/69; PULSE 59; RESP 20; TEMP 36.7; O2SAT 96
[2018-07-27 07:29] LABS: ALT 21 U/L (12-78); AST 20 U/L (15-37); Albumin 2.6 g/dL (3.4-5.0); Alkaline Phosphatase 66 U/L (46-116); Anion Gap 5.8 mmol/L (3-11); BUN 14 mg/dL (7-18); Bilirubin, Total 0.6 mg/dL (0.2-1.0); CO2 24.2 mmol/L (21.0-32.0); CREATININE 0.73 mg/dL (0.55-1.02); Calcium 8.2 mg/dL (8.5-10.1); Chloride 106 mmol/L (98-107); Glucose 90 mg/dL (70-100); Magnesium 1.7 mg/dL (1.8-2.4); Potassium 4.2 mmol/L (3.5-5.1); Sodium 136 mmol/L (136-145); Total Protein 5.6 g/dL (6.4-8.2)
[2018-07-27 08:05] VITALS: O2SAT 96
[2018-07-27] MEDS: Multivitamin TAB 1 TAB PO (08:34)
[2018-07-27] MEDS: Normal Saline Flush 10 ML SYR IVP ×2 (08:34→20:30)
[2018-07-27] MEDS: Pravastatin 40 MG TAB PO (08:34)
[2018-07-27] MEDS: Folic Acid 1 MG TAB PO (08:35)
[2018-07-27] MEDS: Aspirin 81 MG CHEW PO (08:35)
[2018-07-27] MEDS: Gabapentin 300 MG CAP 600 MG PO ×2 (08:35→20:30)
--- NOTE | 2018-07-27 12:08 | W.PM.PROGNOT ---
Date of Service Date of service: 07/27/18 Time of Service: 12:08 Assessment and Plan (1) UTI (urinary tract infection): Current visit: Yes Status: Acute Her UA was suspicious for infection. She has atypical symptoms. She was started on IV ceftriaxone pending culture results. She continues to have intermittent nausea. Continue IV antiemetics. Given her generalized weakness, a PT consult has been placed. Continue IV antibiotics and monitor culture results. (2) Cough: Current visit: Yes Status: Acute Cough improving. She is producing less sputum. She as been afebrile overnight. Chest x-ray in the ED was negative. She had a repeat chest x-ray yesterday which revealed small pleural effusion, no acute process. She has no leukocytosis. Continue to monitor respiratory status. She also notes that she has some difficulty swallowing, will order ST consult. If she cannot be seen while she is here, plan to set her up with Speech as an outpatient after discharge. Continue supportive measures. (3) Essential hypertension: Current visit: No Status: Acute Blood pressure currently stable. Continue to monitor blood pressures. Continue home antihypertensive medications. (4) Hypomagnesemia: Current visit: No Status: Acute Remains low today at 1.7. Received magnesium supplementation. Reassess magnesium level in the morning. (5) Hypokalemia: Current visit: Yes Status: Acute Resolved with supplementation. Continue to monitor BMP. (6) DVT prophylaxis: Current visit: Yes Status: Acute Subcutaneous Lovenox. (7) Discharge planning issues: Current visit: Yes Status: Acute She is a full code. This case was discussed with Dr. Swain who is in agreement. Subjective Interval history since last seen: Belén is a pleasant 68-year-old female with a past medical history significant for hypertension, spinal stenosis, pneumonia, chronic medical marijuana use who presented to the emergency department 07/25/18 with a 3-day history of cough, nausea, vomiting and inability to maintain oral intake. In the emergency department she was noted to have hypokalemia with a potassium of 2.5 she received supplementation and potassium improved to 4.2 today. Her magnesium was low at 1.4, she received supplementation with improvement to 1.7 today. She had a white blood cell count that was within normal limits, she did not have anemia. There was concern for pneumonia she had a chest x-ray which showed no evidence of acute cardiopulmonary disease. She had a low grade fever on the night of her admission. She denied dysuria, but did admit to frequency and urgency as well as mild low abdominal discomfort. A UA was suspicious for infection. She was started on Ceftriaxone. She continues to feel generally weak. She has not been out of bed. She has intermittent nausea. She continues to cough, it is nonproductive. She does not feel short of breath at rest, she is not wheezing. She recalls having a choking episode yesterday while eating jello. She has swallowing trouble occasionally at home. She is agreeable to having a speech evaluation. She denies chest pain/pressure, palpitations, no swelling, pain or stiffness of her joints. Exam Narrative Exam Narrative: General: awake, alert and oriented. Pleasant and cooperative. Resting in bed with eyes closed. HEENT: normocephalic, atraumatic. Pupils equal and round, mucous membranes moist. Neck: Supple without lymphadenopathy or JVD. Respiratory: Respirations are even and unlabored. Lungs sounds clear to auscultation throughout. No rales, rhonchi or wheezes noted. Cardiovascular: Heart has a regular rate and rhythm, no tachycardia. No murmur, click, gallop or rub. GI: Abdomen soft, mild tenderness on palpation of lower abdomen to the left side, no masses appreciated. Normoactive bowel sounds throughout. Extremities: Without clubbing, cyanosis or edema. She has MAX stockings on bilaterally. Peripheral pulses are palpable bilaterally. Skin: no prominent rash or lesion noted. Objective Objective Clinical Data: Abnormal lab results 07/26/18 07/27/18 07/27/18 Range/Units 14:26 06:15 06:15 RBC 3.85 L (4.00-5.20) m/cumm Hgb 11.6 L (12.0-15.5) g/dL Hct 35.0 L (36.0-46.0) % MPV 12.2 H (8.0-11.0) fL Calcium 8.2 L (8.5-10.1) mg/dL Magnesium 1.7 L (1.8-2.4) mg/dL Total Protein 5.6 L (6.4-8.2) g/dL Albumin 2.6 L (3.4-5.0) g/dL Urine Blood Trace-lysed H (Negative) Urine Urobilinogen 4.0 H (Up TO 0.2) EU/dL Ur Leukocyte Esterase Moderate H (Negative) Urine RBC 5-10 H (0-2) Vital Signs Temperature 36.7 C 07/27/18 07:28 Temperature Source Tympanic 07/27/18 07:28 Pulse 59 L 07/27/18 07:28 Pulse Rhythm Regular 07/27/18 08:30 Pulse 71 07/25/18 14:48 Respiratory Rate 20 07/27/18 07:28 Respiratory Effort Non-Labored 07/27/18 08:30 Respiratory Depth Normal 07/27/18 08:30 Respiratory Pattern Normal 07/27/18 08:30 Blood Pressure 141/69 H 07/27/18 07:28 Blood Pressure Mean 80 07/25/18 14:48 Blood Pressure Position Sitting 07/25/18 12:51 Pulse Oximetry 96 07/27/18 07:28 Oxygen Delivery Method Room Air 07/27/18 07:28 Oxygen Flow Rate 0 07/27/18 07:28 Pain Level 0 07/26/18 23:02 Comment 07/27/18 07:28 Intake & Output 07/26/18 07/27/18 07/27/18 23:59 11:59 23:59 Intake Total 1015 / 1015 370 / 370 Output Total 425 / 425 Balance 590 / 590 370 / 370 Intake: IV 435 / 435 10 / 10 Oral 580 / 580 360 / 360 Output: Urine 425 / 425 Other: Urine Color Straw Urine Appearance Clear Comment Void x1 in the toilet. Nightshift RN states patient has been OOB x 2 to the BR throughout the night and once this morning. Voiding Methods Toilet Laboratory Results WBC 8.73 k/cumm (4.4-10.8) 07/27/18 06:15 RBC 3.85 m/cumm (4.00-5.20) L 07/27/18 06:15 Hgb 11.6 g/dL (12.0-15.5) L 07/27/18 06:15 Hct 35.0 % (36.0-46.0) L 07/27/18 06:15 MCV 90.9 fL (80-95) 07/27/18 06:15 MCH 30.1 pg (27.0-33.0) 07/27/18 06:15 MCHC 33.1 g/dL (32.0-36.0) 07/27/18 06:15 RDW 12.9 % (11.7-14.6) 07/27/18 06:15 Plt Count 145 x1000/uL (130-400) 07/27/18 06:15 MPV 12.2 fL (8.0-11.0) H 07/27/18 06:15 Immature Gran % 0.1 07/26/18 06:20 Neutrophils % 62.0 07/26/18 06:20 Lymphocytes % 24.2 07/26/18 06:20 Monocytes % 10.5 07/26/18 06:20 Eosinophils % 2.9 07/26/18 06:20 Basophils % 0.3 07/26/18 06:20 Absolute Neutrophils 4.50 k/cumm (1.2-6.7) 07/26/18 06:20 Absolute Lymphocytes 1.76 k/cumm (1.2-3.4) 07/26/18 06:20 Absolute Monocytes 0.76 k/cumm (0.11-0.7) H 07/26/18 06:20 Absolute Eosinophils 0.21 k/cumm (0.0-0.7) 07/26/18 06:20 Absolute Basophils 0.02 k/cumm (0.0-0.2) 07/26/18 06:20 PT 11.1 sec (9.3-10.8) H 07/25/18 13:05 INR 1.1 (1.0-3.5) 07/25/18 13:05 APTT 23.2 sec (21.0-31.4) 07/25/18 13:05 Sodium 136 mmol/L (136-145) 07/27/18 06:15 Potassium 4.2 mmol/L (3.5-5.1) D 07/27/18 06:15 Chloride 106 mmol/L (98-107) 07/27/18 06:15 Carbon Dioxide 24.2 mmol/L (21.0-32.0) 07/27/18 06:15 Anion Gap 5.8 mmol/L (3-11) 07/27/18 06:15 BUN 14 mg/dL (7-18) 07/27/18 06:15 Creatinine 0.73 mg/dL (0.55-1.02) 07/27/18 06:15 Estimated GFR/1.73 m2 >= 60.00 (mL/min/1.73m2) 07/27/18 06:15 Glucose 90 mg/dL (70-100) 07/27/18 06:15 Lactate 1.2 mmol/L (0.6-1.4) 07/25/18 13:05 Calcium 8.2 mg/dL (8.5-10.1) L 07/27/18 06:15 Magnesium 1.7 mg/dL (1.8-2.4) L 07/27/18 06:15 Total Bilirubin 0.6 mg/dL (0.2-1.0) 07/27/18 06:15 Conjugated Bilirubin 0.24 mg/dL (0.00-0.20) H 07/25/18 13:05 AST 20 U/L (15-37) 07/27/18 06:15 ALT 21 U/L (12-78) 07/27/18 06:15 Alkaline Phosphatase 66 U/L (46-116) 07/27/18 06:15 Total Protein 5.6 g/dL (6.4-8.2) L 07/27/18 06:15 Albumin 2.6 g/dL (3.4-5.0) L 07/27/18 06:15 Lipase 121 U/L (73-393) 07/25/18 13:05 Urine Color Yellow (Yellow) 07/26/18 14:26 Urine Clarity Sl cloudy 07/26/18 14:26 Urine pH 6.5 (5-8) 07/26/18 14:26 Ur Specific [employer] [place] 1.020 (1.005-1.025) 07/26/18 14:26 Urine Protein Negative mg/dL (Negative) 07/26/18 14:26 Urine Ketones Negative mg/dL (Negative) 07/26/18 14:26 Urine Blood Trace-lysed (Negative) H 07/26/18 14:26 Urine Nitrite Negative (Negative) 07/26/18 14:26 Urine Bilirubin Negative (Negative) 07/26/18 14:26 Urine Urobilinogen 4.0 EU/dL (Up TO 0.2) H 07/26/18 14:26 Ur Leukocyte Esterase Moderate (Negative) H 07/26/18 14:26 Urine RBC 5-10 (0-2) H 07/26/18 14:26 Urine WBC 20-50 HPF (0-5) 07/26/18 14:26 Ur Epithelial Cells Few HPF (Negative) 07/26/18 14:26 Urine Crystals Negative HPF (Negative) 07/26/18 14:26 Urine Bacteria Moderate HPF (Negative) 07/26/18 14:26 Urine Casts Negative LPF (Negative) 07/26/18 14:26 Urine Mucus Trace (Negative) 07/26/18 14:26 Urine Other Few transitional (Negative) 07/26/18 14:26 Ur Culture Indicated? Yes 07/26/18 14:26 Urine Glucose Negative mg/dL (Negative) 07/26/18 14:26
--- NOTE | 2018-07-27 14:36 | PT.INIE ---
Date of service: 07/27/18 Time of Service: 14:36 PT Notes Inpatient Physical Therapy Evaluation Date: 07/27/18 Referring Doctor: Lynda Dinh PT Orders: PT CONSULT: generalized weakness, uses cane as needed at baseline, spinal stenosis Precautions: standard Patient Profile/Admitting Diagnosis: Pt is a 68yr old female admitted with cough, hypomagnesemia, hypokalemia PMHX: peripheral neuropathy, spinal stenosis lumbar region with neurogenic claudication, anterior fusion cervical spine C3-5, rotator cuff repair, osteopenia, breast lumpectomy, hemiarthroplasty, hypertension, penumonia, umbilical hernia, adhesive capsulitis left shoulder, hypokalemina, hypomagnesemia Social History/Home Situation: lives alone, 2 steps with post to enter, no steps inside. Baseline mobility independent gait with cane, independent with ADLS. Has been attending outpatient PT at [facility] 3days/week Equipment Owned/DME:cane, grab bars in shower, can borrow a walker if she needs one Subjective: Pt reports she feels slightly weaker than usual, agreeable to PT Consult. Objective: Mental Status: A& O x3 Pain: no c/o pain Bed Mobility/Transfers: Sit-stand: SBA with FWW Chair-bed: SBA with FWW Stand-sit: supervision Sit-supine: independent Supine-sit: independent Gait: SBA with FWW 80ftx2, slow step through gait pattern with claudication. Pt reports being tired at end of gait session and returned to bed to rest. Therex: Pt issued LE strengthening program and performed therex, see flow sheet for details. Balance: Static Sitting: normal Dynamic Sitting: normal Static Standing: fair Dynamic Standing: fair Special Tests: Mobility Limitations Standardized Measure [facility] AM-PAC 6 clicks Basic Mobility Inpatient Short Form: Raw Score: 21 Standardized Score: 50.25 CMS Score: 28.97% CMS Modifier: CJ Informed Consent/Education: Patient instructed in purpose of PT consult and plan of care. Assessment: Pt is a 68yr old female admitted with cough, hypomagnesemia, hypokalemia in setting of peripheral neuropathy, spinal stenosis lumbar region with neurogenic claudication, anterior fusion cervical spine C3-5, rotator cuff repair, osteopenia. Patient presents with the following impairment level findings: generalized weakness, decreased strength with gait mobility and decreased static and dynamic standing balance requiring FWW for stability to prevent falls and recover time after exertion due to weakness. Pt will benefit from skilled therapy intervention, she should be able to return to home setting when medically cleared. Impairments are contributing to the following functional limitations: AMPAC score CMS Score: 28.97% Patient is assessed as a Low [id number] complexity based on the following: History: see above Examination: see above Presentation: evolving Decision Making: AMPAC score CMS Score: 28.97% Goals: Goals X1 week 1. Supine-Sit independent 2. Sit-Supine independent 3. Sit-Stand independent 4. Stand-Sit independent 5. Bed-Chair supervision with FWW 6. Chair-Bed supervision with FWW 7. Gait : supervision with FWW 200ft 8. Stairs up/down 2 steps with railing, supervision 9. Independent with home exercise program Plan of Care/Treatment Plan: 1-2x/day, 7 days/week x 1 week. Plan of care has been reviewed with the ELECTRICAL PROSPECTOR providing the service under Physical Therapy direction. Initiate Physical Therapy intervention for strengthening, bed mobility, transfers, gait, stairs, balance training, use of assistive device. DISCHARGE RECOMMENDATIONS: Home with FWW, outpatient PT follow up at [facility] TREATMENT CODE/TIME: 25 IE 1340 G Codes in the area mobility of walking and moving around: current status [id number] - CJ; projected status GP [id number]- CJ Discharge status (if discharging) GP [id number] CJ based on AMPAC score CMS Score: 28.97% Kesha Tracy PT
--- NOTE | 2018-07-27 14:51 | IN_ITS ---
Date of service: 07/27/18 Time of Service: 14:36 PT Notes Inpatient Physical Therapy Evaluation Date: 07/27/18 Referring Doctor: Lynda Dinh PT Orders: PT CONSULT: generalized weakness, uses cane as needed at baseline, spinal stenosis Precautions: standard Patient Profile/Admitting Diagnosis: Pt is a 68yr old female admitted with cough, hypomagnesemia, hypokalemia PMHX: peripheral neuropathy, spinal stenosis lumbar region with neurogenic claudication, anterior fusion cervical spine C3-5, rotator cuff repair, osteopenia, breast lumpectomy, hemiarthroplasty, hypertension, penumonia, umbilical hernia, adhesive capsulitis left shoulder, hypokalemina, hypomagnesemia Social History/Home Situation: lives alone, 2 steps with post to enter, no steps inside. Baseline mobility independent gait with cane, independent with ADLS. Has been attending outpatient PT at [facility] 3days/week Equipment Owned/DME:cane, grab bars in shower, can borrow a walker if she needs one Subjective: Pt reports she feels slightly weaker than usual, agreeable to PT Consult. Objective: Mental Status: A& O x3 Pain: no c/o pain Bed Mobility/Transfers: Sit-stand: SBA with FWW Chair-bed: SBA with FWW Stand-sit: supervision Sit-supine: independent Supine-sit: independent Gait: SBA with FWW 80ftx2, slow step through gait pattern with claudication. Pt reports being tired at end of gait session and returned to bed to rest. Therex: Pt issued LE strengthening program and performed therex, see flow sheet for details. Balance: Static Sitting: normal Dynamic Sitting: normal Static Standing: fair Dynamic Standing: fair Special Tests: Mobility Limitations Standardized Measure [facility] AM-PAC 6 clicks Basic Mobility Inpatient Short Form: Raw Score: 21 Standardized Score: 50.25 CMS Score: 28.97% CMS Modifier: CJ Informed Consent/Education: Patient instructed in purpose of PT consult and plan of care. Assessment: Pt is a 68yr old female admitted with cough, hypomagnesemia, hypokalemia in setting of peripheral neuropathy, spinal stenosis lumbar region with neurogenic claudication, anterior fusion cervical spine C3-5, rotator cuff repair, osteopenia. Patient presents with the following impairment level findings: generalized weakness, decreased strength with gait mobility and decreased static and dynamic standing balance requiring FWW for stability to prevent falls and recover time after exertion due to weakness. Pt will benefit from skilled therapy intervention, she should be able to return to home setting when medically cleared. Impairments are contributing to the following functional limitations: AMPAC score CMS Score: 28.97% Patient is assessed as a Low [id number] complexity based on the following: History: see above Examination: see above Presentation: evolving Decision Making: AMPAC score CMS Score: 28.97% Goals: Goals X1 week 1. Supine-Sit independent 2. Sit-Supine independent 3. Sit-Stand independent 4. Stand-Sit independent 5. Bed-Chair supervision with FWW 6. Chair-Bed supervision with FWW 7. Gait : supervision with FWW 200ft 8. Stairs up/down 2 steps with railing, supervision 9. Independent with home exercise program Plan of Care/Treatment Plan: 1-2x/day, 7 days/week x 1 week. Plan of care has been reviewed with the AIR CARRIER INSPECTOR providing the service under Physical Therapy direction. Initiate Physical Therapy intervention for strengthening, bed mobility, transfers, gait, stairs, balance training, use of assistive device. DISCHARGE RECOMMENDATIONS: Home with FWW, outpatient PT follow up at [facility] TREATMENT CODE/TIME: 25 IE 1340 G Codes in the area mobility of walking and moving around: current status [id number] - CJ; projected status GP G8979- CJ Discharge status (if discharging) GP G8980 CJ based on AMPAC score CMS Score: 28.97% Kesha Tracy PT
--- NOTE | 2018-07-27 14:54 | PDOC.CMPRO ---
- If Service Date Differs Date of service: 07/27/18 Time of Service: 14:54 Care Management Progress Note S/O: Belén is lying in bed when this technical writer and editor visits this morning. She states that she is feeling okay and that she is hopeful to get out of bed today as she is feeling weak. Belén generally goes to outpatient PT 3x/week as she has a history of spinal stenosis as well as spinal surgeries. MORRIS Howell, has also ordered a speech evaluation which will be performed while Belén is inpatient. Belén has transitioned from observation to an inpatient level of care today. A: 68 y/o female admitted 07/25/18 for nausea/vomiting hypokalemia P: Belén will return home with continued outpatient PT through [facility]. Belén's friend will transport when medically cleared.
[2018-07-27] MEDS: Enoxaparin 40 MG/0.4 ML SYR SC (14:55)
[2018-07-27] MEDS: Gabapentin 300 MG CAP PO (14:55)
--- NOTE | 2018-07-27 15:04 | CMPROGNOTE_ITS ---
- If Service Date Differs Date of service: 07/27/18 Time of Service: 14:54 Care Management Progress Note S/O: Belén is lying in bed when this telegraphic typewriter mechanic visits this morning. She states that she is feeling okay and that she is hopeful to get out of bed today as she is feeling weak. Belén generally goes to outpatient PT 3x/week as she has a history of spinal stenosis as well as spinal surgeries. MORRIS Howell, has also ordered a speech evaluation which will be performed while Belén is inpatient. Belén has transitioned from observation to an inpatient level of care today. A: 68 y/o female admitted 07/25/18 for nausea/vomiting hypokalemia P: Belén will return home with continued outpatient PT through [facility]. Belén's friend will transport when medically cleared.
[2018-07-27 15:41] VITALS: BP 145/69; PULSE 63; RESP 18; TEMP 36.9; O2SAT 96
[2018-07-27] MEDS: Acetaminophen 325 MG TAB PO (18:43)
[2018-07-27] MEDS: amLODIPine 5 MG TAB PO (20:30)
[2018-07-27] MEDS: Atenolol 50 MG TAB 75 MG PO (20:33)
[2018-07-27 23:41] VITALS: BP 146/83; PULSE 62; RESP 16; TEMP 36.5; O2SAT 97
[2018-07-28 07:30] VITALS: BP 135/62; PULSE 63; RESP 18; TEMP 37.6; O2SAT 96
[2018-07-28 07:52] LABS: ALT 21 U/L (12-78); AST 18 U/L (15-37); Albumin 2.8 g/dL (3.4-5.0); Alkaline Phosphatase 69 U/L (46-116); Anion Gap 8.1 mmol/L (3-11); BUN 12 mg/dL (7-18); Bilirubin, Total 0.5 mg/dL (0.2-1.0); CO2 25.9 mmol/L (21.0-32.0); CREATININE 0.68 mg/dL (0.55-1.02); Calcium 8.5 mg/dL (8.5-10.1); Chloride 104 mmol/L (98-107); Glucose 91 mg/dL (70-100); Magnesium 1.7 mg/dL (1.8-2.4); Potassium 3.7 mmol/L (3.5-5.1); Sodium 138 mmol/L (136-145); Total Protein 5.9 g/dL (6.4-8.2)
[2018-07-28] MEDS: Folic Acid 1 MG TAB PO (09:24)
[2018-07-28] MEDS: Pravastatin 40 MG TAB PO (09:24)
[2018-07-28] MEDS: Gabapentin 300 MG CAP 600 MG PO (09:24)
[2018-07-28] MEDS: Multivitamin TAB 1 TAB PO (09:24)
[2018-07-28] MEDS: Aspirin 81 MG CHEW PO (09:24)
--- NOTE | 2018-07-28 09:31 | EVALE_ITS ---
Date of service: 07/28/18 Time of Service: 08:00 Speech Therapy Evaluation Note: REFERRING PROVIDER: Lynda Dnih NP BACKGROUND This is a 68-year-old left-handed female who presented to the ED from home on 07/25/2018, reporting a 3-day history of coughing, nausea, vomiting, and an inability to maintain oral intake. A chest x-ray was done at that time which showed no acute findings. She was found to have hypokalemia and hypomagnesemia as well as a possible UTI and was admitted to the med-surg floor for further care. On 07/27/18 the patient reported having choked on jello and also reported a h/o dysphagia at home. Consequently, a swallow evaluation was requested. A second CXR was done on 07/26/18 which, again, showed no acute findings. The patient is able to provide additional background information with regard to p.o. consistencies taken at home in the weeks prior to this admission. She states that she has been taking what, by description, are Thin liquids, a Regular consistency diet and whole pills with a liquid wash. She has had to pay close attention when swallowing since her cervical surgery two years ago, but as long as she does this, things go well. She is often able to take more than 1 pill at a time. She says that the jello incident was caused by an effort to both swallow and cough at the same time, but she feels that her cough has been steadily improving. She also reports a two year h/o singultus, both prandial and nonprandial. PMH is positive for the followin. HTN 2. Spinal stenosis (cervical spinal fusion 07/31/16) 3. Depression 4. Chronic medical marijuana use 5. h/o: - bacterial pneumonia - smoking OBJECTIVE Nursing reports: 1. Patient is currently on Thin liquids, a Regular consistency diet and whole pills with a liquid wash. 2. Patient tolerated all of her whole pills yesterday. The patient is sitting up in bed watching TV when I enter the room. She greets me with good direct eye contact, a smile and an appropriate intelligible verbal greeting. She also expresses her wish to go home soon, hopefully today. She shows an occasional nonproductive but wet-sounding cough during the first half of today's visit. She is A & O x 4 and able to follow 3-step directions. Oral Sensorimotor Exam The patient has her own dentition but is partially edentulous in the upper right quadrant. She denies any dental discomfort, both at rest and when chewing. Oral hygiene appears mildly to moderately decreased with some gingival plaque noted. Oral sensation is within normal limits bilaterally for buccal, labial and lingual areas. Both smile and forehead wrinkles are within normal limits bilaterally. Motorically, the patient shows no lingual deviation on protrusion in a setting of good excursion. Lingual lateralization is within normal limits as are lingual rapid alternating movements. Lingual strength is within normal limits bilaterally. Mandibular lateralization is WNL bilaterally. Velopharyngeal elevation is strong and symmetrical. Volitional cough and throat-clear are both strong. Estimated speech intelligibility to this unfamiliar listener in a setting of mild background noise is 100%. Vocal quality and intensity are both WNL. Regarding swallowing, the following is noted: 1. [place]-thick liquid: Good bolus control and posterior oral transit (POT). Swallow is inconsistently audible but no kandi s/s aspiration/penetration (A/P) are noted. Oral clearance is 100%. No oral escape is seen. 2. Thin liquid: Results are the same as for [place]-thick liquid. These results are true for both single and consequtive swallows by both cup and straw. 3. Dysphagia Advanced food: Good mastication quality, bolus control and POT. No kandi s/s A/P. Oral clearance: 100%. No oral escape. 4. Modified Regular food: Results same as for M. A. food. 5. Regular food: Results same as for M. A. food. The patient is observed to self-feed independently using her dominant ULE and regular utensils. INTERPRETATION The patient shows no clinical s/s of an oropharyngeal dysphagia at this time. It is understandable that, since her cervical surgery, she has had to use good [id number] when swallowing, and this is desirable, since this does work for her. She appears to be tolerating her current p. o. consistencies. RECOMMENDATIONS 1. Continue current p. o. consistencies of: - Thin liquids - Regular Consistency Diet - Whole pills with a liquid wash 2. No ST indicated at this time. Thank you for referring this patient.
--- NOTE | 2018-07-28 10:40 | PTTR_ITS ---
Date of service: 07/28/18 Time of Service: 10:37 PT Notes 07/28/18 SUBJECTIVE: Richard stating she is feeling much better today. She does still feel slightly off balance compared to her usual but she knows this will improve quickly. She is hoping to go home today. OBJECTIVE: Pt supine in bed. Agreeable to PT treatment. Bed mobility: Supine-Sit: I Sit-supine: I Sit-stand: I Stand-sit: I Gait: Device: FWW Weight bearing: Full Assist: SBA Distance: 150' Deviation: One loss of balance when turning, self recovery ASSESSMENT: Tolerates gait distance well today. She is able to self recovery after minor LOB when turning around in the hallway. She feels confident that she will be able to get around when she gets home and she will be returning to physical therapy at [facility] when she feels up to it. PLAN: Continue current POC progressing toward's established goals. Time: 15 minutes DIOGO Castor, FORK LIFT TECHNICIAN
[2018-07-28] MEDS: Magnesium Oxide 400 MG TAB PO (11:16)
--- NOTE | 2018-07-28 11:59 | PDOC.CMDIS ---
- If Service Date Differs Date of service: 07/28/18 Time of Service: 11:59 LACE Index Scoring Tool - Questions: Length of Stay (in days): 2 Acuity (Admit via E.D.?): Yes E.D. Visits: 2 - Answers: Total Score: 7 Risk of Readmission: Low Risk Care Management Discharge Reason for Hospitalization: Hypertension, Hypomagensemia, Hypokalemia Discharge Plan: Belén will discharge home when medically ready per MD. Anticipate patient will discharge with no services and follow up with PCP. CM will continue to offer support to patient and care team regarding discharge planning and disposition. Patient/Family Education Needs: Discharge education, any limitations, and follow up plan of care. Ask Me Three discussion. Belén will need a FWW from [facility] to be picked up by her on Monday. CM will fax discharge summary and paperwork to [facility].
--- NOTE | 2018-07-28 12:02 | CMDISCH_ITS ---
- If Service Date Differs Date of service: 07/28/18 Time of Service: 11:59 LACE Index Scoring Tool - Questions: Length of Stay (in days): 2 Acuity (Admit via E.D.?): Yes E.D. Visits: 2 - Answers: Total Score: 7 Risk of Readmission: Low Risk Care Management Discharge Reason for Hospitalization: Hypertension, Hypomagensemia, Hypokalemia Discharge Plan: Belén will discharge home when medically ready per MD. Anticipate patient will discharge with no services and follow up with PCP. CM will continue to offer support to patient and care team regarding discharge planning and disposition. Patient/Family Education Needs: Discharge education, any limitations, and follow up plan of care. Ask Me Three discussion. Belén will need a FWW from [facility] [place] to be picked up by her on Monday. CM will fax discharge summary and paperwork to [facility].
--- NOTE | 2018-07-28 14:09 | DSE_ITS ---
Date of service: 07/28/18 Time of Service: 14:08 DS: Diagnosis Discharge Diagnosis (1) UTI (urinary tract infection): Status: Acute (2) Cough: Status: Acute (3) Essential hypertension: Status: Acute (4) Hypomagnesemia: Status: Acute (5) Hypokalemia: Status: Acute (6) DVT prophylaxis: Status: Acute (7) Discharge planning issues: Status: Acute Discharge Plan Disposition Patient Disposition: HOME Condition: Stable Discharge Details Reason For Visit: NAUSEA/VOMITING, HYPOKLEMIA Admit Date/Time: 07/27/18 12:45 Admit Provider: Ladarius Swain Attending Provider: Ladarius Swain Primary Care Provider: Mary Dorsey Hospital Course Hospital Course: Belén is a pleasant 68-year-old female with a past medical history significant for hypertension, spinal stenosis, pneumonia, chronic medical marijuana use who presented to the emergency department 07/25/18 with a 3-day history of cough , nausea, vomiting and inability to maintain oral intake. In the emergency department she was noted to have hypokalemia with a potassium of 2.5 and received supplementation her anion gap was elevated at 12.2 BUN was elevated at 24, creatinine was normal at 0.74. Her magnesium was low at 1.4 which she received supplementation for. She had a white blood cell count that was within normal limits, she did not have anemia. There was concern for pneumonia she had a chest x-ray which showed no evidence of acute cardiopulmonary disease. Follow-up x-ray the next day showed a possible small pleural effusion but no acute process. She was unable to maintain oral intake and had a critically low potassium and generalized weakness so she was [facility] for supplementation of her electrolytes, IV fluids and supportive measures. She was given potassium supplementation and her potassium returned to normal. Her magnesium improved, but remained mildly low at 1.7 on the day of discharge, she will take oral magnesium supplementation and have follow-up lab work as an outpatient. She continued to have generalized weakness, a low-grade fever along with nausea and urinary frequency and urgency without dysuria or hematuria. She provided a urine sample for urinalysis which was suspicious for infection. She was started on IV ceftriaxone. Her urine culture grew E. coli, 100-50,000 colonies. She will complete her antibiotic course as an outpatient with oral antibiotics. She reported some difficulty swallowing and an episode of choking on Jell-O while she was here at the hospital. She reported that she has had trouble with swallowing at home. She had a speech and swallow evaluation while she was an inpatient. Speech therapy did not find any swallowing problems and felt that she could resume her diet as usual. Even her state of generalized weakness, she did have a physical therapy evaluation, she sees a physical therapist as an outpatient. Physical therapy recommended she be discharged home with a front wheeled walker and continue outpatient PT as previously scheduled. She is discharged home today in improved condition. She is advised to follow- up with her primary care provider in 1-2 weeks. She will have follow-up labs to reassess her electrolytes in 1 week's time, with results to her primary care provider. Home Meds and New Rx's Prescriptions: New magnesium oxide 400 mg (241.3 mg magnesium) Tablet 400 mg PO DAILY@1000 Qty: 14 RF: 0 ondansetron [Zofran ODT] 4 mg tablet,disintegrating 4 mg PO TID PRN (Reason: nausea and vomiting) Qty: 10 RF: 0 ciprofloxacin HCl [Cipro] 250 mg tablet 250 mg PO BID Qty: 6 RF: 0 Continue calcium carbonate-vitamin D3 [Calcium 500 + D] 1 EACH tablet 1 ea PO DAILY RF: 0 folic acid 1 MG tablet 800 mcg PO DAILY RF: 0 cetirizine [Zyrtec] 10 MG capsule 10 mg PO PRN RF: 0 selenomethionine 200 MCG tablet 200 mcg PO DAILY RF: 0 aspirin 81 MG tablet,chewable 81 mg PO DAILY RF: 0 multivitamin [Daily Multi-Vitamin] 1 EACH tablet 1 ea PO DAILY RF: 0 amlodipine 5 MG tablet 5 mg PO HS Qty: 90 RF: 2 pravastatin 40 MG tablet 40 mg PO DAILY Qty: 90 RF: 3 gabapentin 300 MG capsule 300 mg PO TID Qty: 450 RF: 3 atenolol 50 mg tablet 75 mg PO HS Qty: 135 RF: 3 ranitidine HCl 150 mg tablet 150 mg PO BID Qty: 180 RF: 3 ibuprofen 600 MG tablet 600 mg PO BID RF: 0 Discharge Instructions Instructions: Urinary Tract Infection in Women (GEN) Additional Instructions: Drink plenty of fluids. Rest. Take your antibiotics until they are gone. Take zofran as needed for nausea. You will need to have labs drawn to recheck your electrolytes next week. Take it easy at home, be careful moving around, change positions slowly. Call you PCP on Monday to make a follow up appointment in the next week or two. Continue outpatient PT. Take care! Stand Alone Forms: Nursing Discharge Form Referrals: Torrey Schaefer DO [OSTEOPATHIC DOCTOR] - 08/03/18 9:15 am Activity:: Activity as Tolerated Equipment/Supplies:: Walker Diet:: As Tolerated Discharge Orders Discharge Orders: Discharge Order (Routine); Ordered 07/28/18 Ordered By: Lynda Dnih Other Ambulatory Orders: Basic Metabolic Panel (Routine) Timeframe: 1 Week Location: Determined by Patient Ordered By: Lynda Dinh Magnesium (Routine) Timeframe: 1 Week Location: Determined by Patient Ordered By: Lynda Dinh Exam Narrative Exam Narrative: General: awake, alert and oriented. Pleasant and cooperative. Sitting up in bed. in NAD. HEENT: normocephalic, atraumatic. Pupils equal and round, mucous membranes moist. Neck: Supple without lymphadenopathy or JVD. Respiratory: Respirations are even and unlabored. Lungs sounds clear to auscultation throughout. No rales, rhonchi or wheezes noted. Cardiovascular: Heart has a regular rate and rhythm, no tachycardia. No murmur , click, gallop or rub. GI: Abdomen soft, mild tenderness on palpation of lower abdomen to the left side , no masses appreciated. Normoactive bowel sounds throughout. No CVA tenderness. Extremities: Without clubbing, cyanosis or edema. She has MAX stockings on bilaterally. Peripheral pulses are palpable bilaterally. Skin: no prominent rash or lesion noted. DS: Data Vitals/I&O Vitals and I&O: Vital Signs Temperature 37.6 C H 07/28/18 07:30 Temperature Source Tympanic 07/28/18 07:30 Pulse 63 07/28/18 07:30 Pulse Rhythm Regular 07/28/18 09:20 Pulse 71 07/25/18 14:48 Respiratory Rate 18 07/28/18 07:30 Respiratory Effort Non-Labored 07/28/18 09:20 Respiratory Depth Normal 07/28/18 09:20 Respiratory Pattern Normal 07/28/18 09:20 Blood Pressure 135/62 07/28/18 07:30 Blood Pressure Mean 80 07/25/18 14:48 Blood Pressure Position Sitting 10/31/18 12:51 Pulse Oximetry 96 07/28/18 07:30 Oxygen Delivery Method Room Air 07/28/18 07:30 Oxygen Flow Rate 0 07/28/18 07:30 Pain Level 7 07/27/18 18:43 Comment 07/27/18 07:28 Intake & Output 07/27/18 07/28/18 07/28/18 23:59 11:59 23:59 Intake Total 720 / 720 240 / 240 Balance 720 / 720 240 / 240 Intake: Oral 720 / 720 240 / 240 Other: Urine Appearance Clear Voiding Methods Toilet Completed studies during hospitalization [Text1]: 07/26/2018 AP AND LATERAL CHEST: The lungs are well expanded and free of infiltrate. There is no pleural effusion. The cardiovascular structures are intact. Note is made of a mild rotoscoliotic deformity of the mid and lower dorsal spine. Note is also made of a left TSR. An anchor is affixed to the head of the right humerus consistent with prior surgery as well. IMPRESSION: No evidence of acute cardiopulmonary disease. 07/27/18: PA AND LATERAL CHEST: The lungs are free of infiltrate. There is some slight blunting of the costophrenic angles likely representing a very small pleural effusion. The heart is not enlarged. The hilar structures, mediastinum and tracheal air column are intact. SUMMARY: Question small bilateral pleural effusion, nil else. Labs on day of discharge: Labs from last 24 hours 07/28/18 06:55 Sodium 138 Potassium 3.7 Chloride 104 Carbon Dioxide 25.9 Anion Gap 8.1 BUN 12 Creatinine 0.68 Estimated GFR/1.73 m2 >= 60.00 Glucose 91 Calcium 8.5 Magnesium 1.7 L Total Bilirubin 0.5 AST 18 ALT 21 Alkaline Phosphatase 69 Total Protein 5.9 L Albumin 2.8 L
--- NOTE | 2018-07-29 08:25 | PT.INDS ---
Date of service: 07/29/18 Time of Service: 08:25 PT Notes Inpatient Physical Therapy Discharge Summary Date: 07/29/18 Dates of Service: 07/27/18-07/28/18 SUBJECTIVE: NT OBJECTIVE: 07/27/18-07/28/18 Bed Mobility/Transfers: Sit-stand: independent Stand-sit: independent Sit-supine: independent Supine-sit: independent Gait: SBA with FWW 150ft Balance: Static Sitting: normal Dynamic Sitting: normal Static Standing: fair Dynamic Standing: fair Assessment: Pt is a 68yr old female admitted with cough, hypomagnesemia, hypokalemia in setting of peripheral neuropathy, spinal stenosis lumbar region with neurogenic claudication, anterior fusion cervical spine C3-5, rotator cuff repair, osteopenia. Patient was seen for 2 PT visits. Progressed from SBA standing transfers to independent, from SBA gait with FWW 80ftx2 to SBA gait with FWW 150ft. Pt was discharged to home setting. Goals: Goals X1 week 1. Supine-Sit independent 2. Sit-Supine independent 3. Sit-Stand independent 4. Stand-Sit independent 5. Bed-Chair supervision with FWW 6. Chair-Bed supervision with FWW 7. Gait : supervision with FWW 200ft 8. Stairs up/down 2 steps with railing, supervision 9. Independent with home exercise program Pt met goals # 1, 2, 3, 4, 5, 6, 9- recommend outpatient PT at discharge DISCHARGE RECOMMENDATIONS: Home with FWW, outpatient PT follow up at [facility] G Codes in the area mobility of walking and moving around; projected status GP [id number]- Discharge status (if discharging) GP [id number] MANDY Tracy PT
== END 2018-07-28 16:35 | disposition home or self-care (01) | DRG 641 ==
LOC: ER 14:50 → MS 15:01
PROVIDERS: Nurse Practitioner; Admitting Provider Internal Medicine; Emergency Provider Emergency Medicine; PCP Internal Medicine; Visit Provider Internal Medicine
DX: E87.6 Hypokalemia (principal); N39.0 Urinary tract infection, site not specified; R53.1 Weakness; R05 Cough; I10 Essential (primary) hypertension; E83.42 Hypomagnesemia; B96.20 Unspecified Escherichia coli [E. coli] as the cause of diseases classified elsewhere; R13.10 Dysphagia, unspecified; M48.00 Spinal stenosis, site unspecified; Z87.891 Personal history of nicotine dependence; Z79.899 Other long term (current) drug therapy
CPT/HCPCS: 36415; 80053; 80076; 83690; 85027; 87077; 87449; 92610; 93005; 97161; 97530; 99219; 99225; 99232; 99239; 99285; G8996; J1650; 71046; 81003; 81015; 83605; 83735; 85025; 85610; 85730; 87086; 87186; 93010; G0378; G8978; J0696; J2405; J3475; J3480

== ENCOUNTER 2018-08-03 09:34 | Outpatient (CLI) | payer MEDICARE, OTHER, SELFPAY ==
[2018-08-03 11:25] LABS: Anion Gap 7.5 mmol/L (3-11); BUN 14 mg/dL (7-18); CO2 29.5 mmol/L (21.0-32.0); CREATININE 0.85 mg/dL (0.55-1.02); Calcium 8.9 mg/dL (8.5-10.1); Chloride 105 mmol/L (98-107); Glucose 86 mg/dL (70-100); Magnesium 1.7 mg/dL (1.8-2.4); Potassium 3.9 mmol/L (3.5-5.1); Sodium 142 mmol/L (136-145)
== END 2018-08-03 09:54 ==
PROVIDERS: PCP Internal Medicine; Visit Provider Nurse Practitioner
DX: E83.42 Hypomagnesemia (principal); E87.6 Hypokalemia
CPT/HCPCS: 36415; 80048; 83735

== ENCOUNTER 2018-08-05 10:47 | Observation (INO) | payer MEDICARE, OTHER, SELFPAY ==
[2018-08-05 10:53] VITALS: BP 166/115; PULSE 73; RESP 14; TEMP 37.5; O2SAT 99
[2018-08-05 11:10] LABS: Bilirubin Negative (Negative); Blood Trace-intact (Negative); Clarity Clear; Glucose Negative (Negative); Ketones Negative (Negative); Leukocyte Esterase Negative (Negative); Nitrite Negative (Negative); Specific Gravity 1.015 (1.005-1.025); Urobilinogen 0.2 EU/dL (Up TO 0.2); pH 7.5 (5-8)
--- NOTE | 2018-08-05 11:10 | W.ED.GENAD ---
Discharge Plan Disposition Patient Disposition: [facility] INPATIENT Condition: Good Discharge Details Chief Complaint: Nausea/Vomit/Diar Clinical Impression: Malaise, Hypomagnesemia, Nausea & vomiting Primary Care Provider: Mary Dorsey ED Provider: Walter Chaudhari Home Meds and New Rx's Prescriptions: No Action calcium carbonate-vitamin D3 [Calcium 500 + D] 1 EACH tablet 1 ea PO DAILY RF: 0 folic acid 1 MG tablet 800 mcg PO DAILY RF: 0 cetirizine [Zyrtec] 10 MG capsule 10 mg PO PRN RF: 0 selenomethionine 200 MCG tablet 200 mcg PO DAILY RF: 0 aspirin 81 MG tablet,chewable 81 mg PO DAILY RF: 0 multivitamin [Daily Multi-Vitamin] 1 EACH tablet 1 ea PO DAILY RF: 0 amlodipine 5 MG tablet 5 mg PO HS Qty: 90 RF: 2 pravastatin 40 MG tablet 40 mg PO DAILY Qty: 90 RF: 3 gabapentin 300 MG capsule 300 mg PO TID Qty: 450 RF: 3 atenolol 50 mg tablet 75 mg PO HS Qty: 135 RF: 3 ranitidine HCl 150 mg tablet 150 mg PO BID Qty: 180 RF: 3 ibuprofen 600 MG tablet 600 mg PO BID RF: 0 magnesium oxide 400 mg (241.3 mg magnesium) Tablet 400 mg PO DAILY@1000 Qty: 14 RF: 0 ondansetron [Zofran ODT] 4 mg tablet,disintegrating 4 mg PO TID PRN (Reason: nausea and vomiting) Qty: 10 RF: 0 Medical Decision Making <Chris Reynolds NP - Last Filed: 08/05/18 12:14> Likely unresolved UTI with possible pylonepheritis. Will establish IV and initiate fluids, ECG, UA and evaluate chemistry and hematology. Apprised pt of unremarkable labs and let her know Dr. Chaudhari would resume care. She told she did not feel well in general with no additional complaints. I explained that Dr. Chaudhari would f/u with her and address any additional concerns. She was agreeable. Pt comfortable supine in bed with continuation of IV fluids. ECG Data Interpretation: Reviewed with Dr. Meyer. No acute ST changes. <Chris Meyer MD - Last Filed: 08/05/18 11:36> ECG Data Attestation: I personally reviewed and interpreted this ECG (s) as follows: Prior ECG tracings: not available for review Interpretation: normal sinus rhythm, normal rate, normal pr, no acute st t wave ischemic findings <Walter Chaudhari, - Last Filed: 08/05/18 16:06> This is a 68-year-old female who was signed out to me my my colleague Wili Reynolds. Patient was here a week ago for urinary tract infection hypokalemia. She is discharged home since then she has been feeling poorly with continued vomiting and malaise. She came in today for reevaluation. On initial assessment by the nurse practitioner laboratory workup was started, results came back and demonstrate no significant abnormalities aside from mild hypo-[place] anemia. Potassium is normal, no white count, no significant left shift or bandemia. My reassessment patient did demonstrate some mild abdominal pain, and continued feelings of malaise. We did get a CT scan which did show evidence of no acute process but did show concerning abnormalities in her bladder suggestive of potential malignancy. This is a new finding per the patient. Urinalysis shows no signs of significant urinary tract infection or kandi hematuria. No nitrites, and a normal troponin EKG. Patient was rehydrated with a second liter of normal saline, given repeat Zofran, we did perform a p.o. trial and she tolerated this. Patient made it very clear that she did not feel comfortable going home. However I did not find any significant abnormalities. We did get her up and ambulate her, her saturations, pulse ox, and heart rate remained stable with ambulation. She did tolerate this relatively well but felt slightly unsteady on her feet. Repeat neurologic exam demonstrated no significant abnormalities. Chest x-ray was ordered, no acute process is noted. I did go back and reassessed with the patient, she continues to make it very clear that she does not feel comfortable going home, or safe. Prolonged discussion she is requesting admission, and is very adamant. Because she feels unsafe, and with her new diagnosis of questionable bladder malignancy, I feel she may benefit from inpatient admission with prompt urology follow-up tomorrow for cystoscopy for further evaluation. I discussed the case with , he agrees to the assessment and plan. I have extensively reviewed the treatment plan with the patient. I have addressed all patient concerns at this time. I have also discussed the plan with the admitting physician and they agree with the current assessment and plan and have agreed to assume responsibility for the patient. All parties demonstrate verbal understanding and agreement with our assessment and plan at this time. HPI <Chris Reynolds, CODE ENFORCEMENT SUPERVISOR - Last Filed: 08/05/18 12:14> General Date/Time Provider Initiated Documentation: 08/05/18 10:49. Limitations to Documentation: no limitations. Information obtained by: patient and RN notes reviewed. History of Present Illness 68 year old F presents to the emergency department with the chief complaint of UTI with N/V/D, HPI Narrative: 68 y/o female here with c/o N/V, back pain and abdominal pain. She was admitted through this ED 10 days ago for UTI and hypokalemia and discharged from inpatient two days ago. Hypokalemia corrected at D/C with potassium of 3.9. N/V started last night she has had associated chills, flank pain and urinary frequency. She started course of antibiotics while in the hospital and completed on outpatient. Related Data Home Medications Medication Instructions Recorded Confirmed calcium carbonate-vitamin D3 1 ea PO DAILY 09/06/16 07/25/18 [Calcium 500 + D] cetirizine [Zyrtec] 10 mg PO PRN 01/19/17 07/25/18 folic acid 800 mcg PO DAILY tab-cap 01/19/17 07/25/18 selenomethionine 200 mcg PO DAILY 06/21/17 07/25/18 aspirin 81 mg PO DAILY tab-cap 07/26/17 07/25/18 multivitamin [Daily Multi-Vitamin] 1 ea PO DAILY 09/26/17 07/25/18 amlodipine 5 mg PO HS #90 tab 12/13/17 07/25/18 gabapentin 300 mg PO TID #450 tab-cap 04/24/18 07/25/18 pravastatin 40 mg PO DAILY #90 tab-cap 04/24/18 07/25/18 atenolol 50 mg tablet 75 mg PO HS #135 tab 07/06/18 07/25/18 ranitidine 150 mg tablet 150 mg PO BID #180 tab-cap 07/06/18 07/25/18 ibuprofen 600 mg PO BID 07/25/18 07/25/18 magnesium oxide 400 mg PO DAILY@1000 #14 tab 07/28/18 ondansetron [Zofran ODT] 4 mg PO TID PRN #10 tab 07/28/18 Previous Rx's Medication Instructions Recorded amlodipine 5 mg PO HS #90 tab 12/13/17 pravastatin 40 mg PO DAILY #90 tab-cap 04/24/18 atenolol 50 mg tablet 75 mg PO HS #135 tab 07/06/18 ranitidine 150 mg tablet 150 mg PO BID #180 tab-cap 07/06/18 magnesium oxide 400 mg PO DAILY@1000 #14 tab 07/28/18 ondansetron [Zofran ODT] 4 mg PO TID PRN #10 tab 07/28/18 Allergies Allergy/AdvReac Type Severity Reaction Status Date / Time codeine AdvReac Intermediate Nausea Unverified 08/03/18 08:54 hydrochlorothiazide AdvReac Mild hypomagnese Unverified 08/03/18 08:54 pop duloxetine AdvReac Other (See Unverified 08/03/18 08:54 Comment) narcotics AdvReac Intermediate Nausea, Uncoded 08/03/18 08:54 vomiting General Stated Complaint: Nausea/Vomit/Diar ROSENDO: 3 Review of Systems <Chris Reynolds NP - Last Filed: 08/05/18 12:14> ENT Reports system reviewed and no additional complaints, except as docu Cardiovascular Reports system reviewed and no additional complaints, except as docu Respiratory Reports cough Gastrointestinal Reports abdominal pain, Reports nausea and Reports vomiting Genitourinary Reports flank pain and Reports urinary urgency Musculoskeletal Reports back pain Integumentary/Breasts Reports system reviewed and no additional complaints, except as docu Neurologic Reports system reviewed and no additional complaints, except as docu Exam <Chris Reynolds NP - Last Filed: 08/05/18 12:14> Const General: cooperative and acute distress mild Nutritional Appearance: average body habitus Orientation: alert, awake and oriented x3 HENMT Head: normal to inspection and atraumatic Ears: hearing grossly normal bilaterally and external ears normal General nose exam: external nose normal Mouth: oral mucosae normal Eyes General: appearance normal, both eyes and all related structures Neck Neck: normal visual inspection and full ROM Resp Effort & Inspection: normal respiratory effort Auscultation: clear to auscultation bilaterally Cardio Jugular venous pressure: no JVD Rate: regular rate Rhythm: regular rhythm Heart Sounds: S1 normal and S2 normal GI Inspection: normal to inspection Palpation: soft and tender in the LLQ (diffuse), in the RLQ (diffuse), in the LUQ (diffuse) and in the RUQ (diffuse); with no rebound tenderness Back/Spine/Pelvis Back: CVA tenderness Skin General skin exam: no rashes or lesions noted Neuro General: alert, awake, oriented x3 and gait normal Cognition: normal cognition Speech: speech normal Gait: normal gait Extrem General: normal to inspection, full ROM and normal capillary refill Psych Appearance: grossly normal Speech and Movement: speech and movement normal Mood: congruent mood Affect: normal affect Attitude: cooperative Thought Process: normal Thought Content: normal Insight: insight good Judgment: judgment good Course <Chris Reynolds NP - Last Filed: 08/05/18 12:14> Vital Signs Temperature 37.5 C 08/05/18 10:53 Pulse 73 08/05/18 10:53 Respiratory Rate 14 08/05/18 10:53 Blood Pressure 166/115 H 08/05/18 10:53 Pulse Oximetry 99 08/05/18 10:53 Temperature 37.5 C 08/05/18 10:53 Temperature Source Temporal Artery Scan 08/05/18 10:53 Pulse 73 08/05/18 10:53 Respiratory Rate 14 08/05/18 10:53 Blood Pressure 166/115 H 08/05/18 10:53 Blood Pressure Position Supine 08/05/18 10:53 Pulse Oximetry 99 08/05/18 10:53 Oxygen Delivery Method Room Air 08/05/18 10:53 Oxygen Flow Rate 0 08/05/18 10:53
--- NOTE | 2018-08-05 11:13 | ED.GENADUL_ITS ---
Discharge Plan Disposition Patient Disposition: [facility] INPATIENT Condition: Good Discharge Details Chief Complaint: Nausea/Vomit/Diar Clinical Impression: Malaise, Hypomagnesemia, Nausea & vomiting Primary Care Provider: Mary Dorsey ED Provider: Walter Chaudhari Home Meds and New Rx's Prescriptions: No Action calcium carbonate-vitamin D3 [Calcium 500 + D] 1 EACH tablet 1 ea PO DAILY RF: 0 folic acid 1 MG tablet 800 mcg PO DAILY RF: 0 cetirizine [Zyrtec] 10 MG capsule 10 mg PO PRN RF: 0 selenomethionine 200 MCG tablet 200 mcg PO DAILY RF: 0 aspirin 81 MG tablet,chewable 81 mg PO DAILY RF: 0 multivitamin [Daily Multi-Vitamin] 1 EACH tablet 1 ea PO DAILY RF: 0 amlodipine 5 MG tablet 5 mg PO HS Qty: 90 RF: 2 pravastatin 40 MG tablet 40 mg PO DAILY Qty: 90 RF: 3 gabapentin 300 MG capsule 300 mg PO TID Qty: 450 RF: 3 atenolol 50 mg tablet 75 mg PO HS Qty: 135 RF: 3 ranitidine HCl 150 mg tablet 150 mg PO BID Qty: 180 RF: 3 ibuprofen 600 MG tablet 600 mg PO BID RF: 0 magnesium oxide 400 mg (241.3 mg magnesium) Tablet 400 mg PO DAILY@1000 Qty: 14 RF: 0 ondansetron [Zofran ODT] 4 mg tablet,disintegrating 4 mg PO TID PRN (Reason: nausea and vomiting) Qty: 10 RF: 0 Medical Decision Making <Chris Reynolds NP - Last Filed: 08/05/18 12:14> Likely unresolved UTI with possible pylonepheritis. Will establish IV and initiate fluids, ECG, UA and evaluate chemistry and hematology. Apprised pt of unremarkable labs and let her know Dr. Chaudhari would resume care. She told she did not feel well in general with no additional complaints. I explained that Dr. Chaudhari would f/u with her and address any additional concerns. She was agreeable. Pt comfortable supine in bed with continuation of IV fluids. ECG Data Interpretation: Reviewed with Dr. Meyer. No acute ST changes. <Chris Meyer MD - Last Filed: 08/05/18 11:36> ECG Data Attestation: I personally reviewed and interpreted this ECG (s) as follows: Prior ECG tracings: not available for review Interpretation: normal sinus rhythm, normal rate, normal pr, no acute st t wave ischemic findings <Walter Chaudhari, - Last Filed: 08/05/18 16:06> This is a 68-year-old female who was signed out to me my my colleague Wili Reynolds. Patient was here a week ago for urinary tract infection hypokalemia. She is discharged home since then she has been feeling poorly with continued vomiting and malaise. She came in today for reevaluation. On initial assessment by the nurse practitioner laboratory workup was started, results came back and demonstrate no significant abnormalities aside from mild hypo-Marion anemia. Potassium is normal, no white count, no significant left shift or bandemia. My reassessment patient did demonstrate some mild abdominal pain, and continued feelings of malaise. We did get a CT scan which did show evidence of no acute process but did show concerning abnormalities in her bladder suggestive of potential malignancy. This is a new finding per the patient. Urinalysis shows no signs of significant urinary tract infection or kandi hematuria. No nitrites, and a normal troponin EKG. Patient was rehydrated with a second liter of normal saline, given repeat Zofran, we did perform a p.o. trial and she tolerated this. Patient made it very clear that she did not feel comfortable going home. However I did not find any significant abnormalities. We did get her up and ambulate her, her saturations , pulse ox, and heart rate remained stable with ambulation. She did tolerate this relatively well but felt slightly unsteady on her feet. Repeat neurologic exam demonstrated no significant abnormalities. Chest x-ray was ordered, no acute process is noted. I did go back and reassessed with the patient, she continues to make it very clear that she does not feel comfortable going home, or safe. Prolonged discussion she is requesting admission, and is very adamant. Because she feels unsafe, and with her new diagnosis of questionable bladder malignancy, I feel she may benefit from inpatient admission with prompt urology follow-up tomorrow for cystoscopy for further evaluation. I discussed the case with , he agrees to the assessment and plan. I have extensively reviewed the treatment plan with the patient. I have addressed all patient concerns at this time. I have also discussed the plan with the admitting physician and they agree with the current assessment and plan and have agreed to assume responsibility for the patient. All parties demonstrate verbal understanding and agreement with our assessment and plan at this time. HPI <Chris Reynolds, MICROFILM MACHINE OPERATOR - Last Filed: 08/05/18 12:14> General Date/Time Provider Initiated Documentation: 08/05/18 10:49 . Limitations to Documentation: no limitations . Information obtained by: patient and RN notes reviewed . History of Present Illness 68 year old F presents to the emergency department with the chief complaint of UTI with N/V/D, HPI Narrative: 68 y/o female here with c/o N/V, back pain and abdominal pain. She was admitted through this ED 10 days ago for UTI and hypokalemia and discharged from inpatient two days ago. Hypokalemia corrected at D/C with potassium of 3.9. N/V started last night she has had associated chills, flank pain and urinary frequency. She started course of antibiotics while in the hospital and completed on outpatient. Related Data Home Medications Medication Instructions Recorded Confirmed calcium carbonate-vitamin D3 1 ea PO DAILY 09/06/16 07/25/18 [Calcium 500 + D] cetirizine [Zyrtec] 10 mg PO PRN 01/19/17 07/25/18 folic acid 800 mcg PO DAILY tab-cap 01/19/17 07/25/18 selenomethionine 200 mcg PO DAILY 06/21/17 07/25/18 aspirin 81 mg PO DAILY tab-cap 07/26/17 07/25/18 multivitamin [Daily Multi-Vitamin] 1 ea PO DAILY 09/26/17 07/25/18 amlodipine 5 mg PO HS #90 tab 12/13/17 07/25/18 gabapentin 300 mg PO TID #450 tab-cap 04/24/18 07/25/18 pravastatin 40 mg PO DAILY #90 tab-cap 04/24/18 07/25/18 atenolol 50 mg tablet 75 mg PO HS #135 tab 07/06/18 07/25/18 ranitidine 150 mg tablet 150 mg PO BID #180 tab-cap 07/06/18 07/25/18 ibuprofen 600 mg PO BID 07/25/18 07/25/18 magnesium oxide 400 mg PO DAILY@1000 #14 tab 07/28/18 ondansetron [Zofran ODT] 4 mg PO TID PRN #10 tab 07/28/18 Previous Rx's Medication Instructions Recorded amlodipine 5 mg PO HS #90 tab 12/13/17 pravastatin 40 mg PO DAILY #90 tab-cap 04/24/18 atenolol 50 mg tablet 75 mg PO HS #135 tab 07/06/18 ranitidine 150 mg tablet 150 mg PO BID #180 tab-cap 07/06/18 magnesium oxide 400 mg PO DAILY@1000 #14 tab 07/28/18 ondansetron [Zofran ODT] 4 mg PO TID PRN #10 tab 07/28/18 Allergies Allergy/AdvReac Type Severity Reaction Status Date / Time codeine AdvReac Intermediate Nausea Unverified 08/03/18 08:54 hydrochlorothiazide AdvReac Mild hypomagnese Unverified 08/03/18 08:54 pop duloxetine AdvReac Other (See Unverified 08/03/18 08:54 Comment) narcotics AdvReac Intermediate Nausea, Uncoded 08/03/18 08:54 vomiting General Stated Complaint: Nausea/Vomit/Diar ROSENDO: 3 Review of Systems <Chris Reynolds NP - Last Filed: 08/05/18 12:14> ENT Reports system reviewed and no additional complaints, except as docu Cardiovascular Reports system reviewed and no additional complaints, except as docu Respiratory Reports cough Gastrointestinal Reports abdominal pain, Reports nausea and Reports vomiting Genitourinary Reports flank pain and Reports urinary urgency Musculoskeletal Reports back pain Integumentary/Breasts Reports system reviewed and no additional complaints, except as docu Neurologic Reports system reviewed and no additional complaints, except as docu Exam <Chris Reynolds NP - Last Filed: 08/05/18 12:14> Const General: cooperative and acute distress mild Nutritional Appearance: average body habitus Orientation: alert, awake and oriented x3 HENMT Head: normal to inspection and atraumatic Ears: hearing grossly normal bilaterally and external ears normal General nose exam: external nose normal Mouth: oral mucosae normal Eyes General: appearance normal, both eyes and all related structures Neck Neck: normal visual inspection and full ROM Resp Effort & Inspection: normal respiratory effort Auscultation: clear to auscultation bilaterally Cardio Jugular venous pressure: no JVD Rate: regular rate Rhythm: regular rhythm Heart Sounds: S1 normal and S2 normal GI Inspection: normal to inspection Palpation: soft and tender in the LLQ (diffuse), in the RLQ (diffuse), in the LUQ (diffuse) and in the RUQ (diffuse); with no rebound tenderness Back/Spine/Pelvis Back: CVA tenderness Skin General skin exam: no rashes or lesions noted Neuro General: alert, awake, oriented x3 and gait normal Cognition: normal cognition Speech: speech normal Gait: normal gait Extrem General: normal to inspection, full ROM and normal capillary refill Psych Appearance: grossly normal Speech and Movement: speech and movement normal Mood: congruent mood Affect: normal affect Attitude: cooperative Thought Process: normal Thought Content: normal Insight: insight good Judgment: judgment good Course <Chris Reynolds NP - Last Filed: 08/05/18 12:14> Vital Signs Temperature 37.5 C 08/05/18 10:53 Pulse 73 08/05/18 10:53 Respiratory Rate 14 08/05/18 10:53 Blood Pressure 166/115 H 08/05/18 10:53 Pulse Oximetry 99 08/05/18 10:53 Temperature 37.5 C 08/05/18 10:53 Temperature Source Temporal Artery Scan 08/05/18 10:53 Pulse 73 08/05/18 10:53 Respiratory Rate 14 08/05/18 10:53 Blood Pressure 166/115 H 08/05/18 10:53 Blood Pressure Position Supine 08/05/18 10:53 Pulse Oximetry 99 08/05/18 10:53 Oxygen Delivery Method Room Air 08/05/18 10:53 Oxygen Flow Rate 0 08/05/18 10:53
[2018-08-05 11:19] LABS: WBC 0-2 HPF (0-5)
[2018-08-05 11:20] LABS: Bacteria Few HPF (Negative); C & S Indicated? No; Casts Negative LPF (Negative); Crystals Moderate Amorphous HPF (Negative); Epithelial Cells Few HPF (Negative); Mucus Trace (Negative); Other Cells Negative (Negative)
[2018-08-05] MEDS: Normal Saline Flush 10 ML SYR IVP ×2 (11:25→17:19)
[2018-08-05] MEDS: Ondansetron 4 MG/2 ML VIAL IVP ×2 (11:33→13:19)
[2018-08-05] MEDS: Normal Saline 1,000 ML 1000 ML IV ×2 (11:35→13:08)
[2018-08-05 11:36] LABS: Abs Immature Grans 0.01 k/cumm (0.0-0.09); Absolute Basophil Count 0.02 k/cumm (0.0-0.2); Absolute Eosinophil Count 0.04 k/cumm (0.0-0.7); Absolute Lymphocyte Count 1.13 k/cumm (1.2-3.4); Absolute Monocyte Count 0.45 k/cumm (0.11-0.7); Absolute Neutrophil Count 7.46 k/cumm (1.2-6.7); Basophils % 0.2; Eosinophils % 0.4; HCT 36.9 % (36.0-46.0); HGB 12.3 g/dL (12.0-15.5); Immature Grans % 0.1; Lymphocytes % 12.4; Mean Corp. HGB Concentration 33.3 g/dL (32.0-36.0); Mean Corpuscular Hemoglobin 30.4 pg (27.0-33.0); Mean Corpuscular Volume 91.1 fL (80-95); Mean Platelet Volume 10.9 fL (8.0-11.0); Monocytes % 4.9; Platelet Count 211 x1000/uL (130-400); RBC 4.05 m/cumm (4.00-5.20); RBC Distribution Width 12.7 % (11.7-14.6); White Blood Cell Count 9.11 k/cumm (4.4-10.8)
[2018-08-05 11:55] LABS: ALT 28 U/L (12-78); AST 23 U/L (15-37); Albumin 3.2 g/dL (3.4-5.0); Alkaline Phosphatase 98 U/L (46-116); Anion Gap 9.5 mmol/L (3-11); BUN 12 mg/dL (7-18); Bilirubin, Total 0.6 mg/dL (0.2-1.0); CO2 26.5 mmol/L (21.0-32.0); CREATININE 0.82 mg/dL (0.55-1.02); Chloride 100 mmol/L (98-107); Glucose 105 mg/dL (70-100); Magnesium 1.3 mg/dL (1.8-2.4); Potassium 3.7 mmol/L (3.5-5.1); Sodium 136 mmol/L (136-145); Total Protein 7.1 g/dL (6.4-8.2); Troponin I < 0.02 ng/mL (0.00-0.06)
--- NOTE | 2018-08-05 12:32 | DI.CT_ITS ---
SYMPTOM/DIAGNOSIS: LEFT SIDED ABDOMINAL PAIN, VOMITING CT ABDOMEN AND PELVIS: CT scan of the abdomen and pelvis was performed following the uneventful administration of intravenous contrast material. No priors. Mild dependent atelectatic changes are seen in the lung bases. The liver, gallbladder, bile ducts, spleen and pancreas are unremarkable. There are again seen bilateral adrenal nodules which appear stable compared to the CT scan of the chest from 05/29/18. The kidneys show normal and symmetric enhancement. No evidence of a solid renal mass or obstruction is seen. There is a nonobstructing 5 mm stone in the mid pole of the right kidney. Hypodensities are seen within the renal cortices likely reflecting cysts but are too small for further characterization. The urinary bladder is intact. There are at least 3 nodular densities along the posterior left aspect of the urinary bladder wall. Neoplasm cannot be excluded. Noncalcified bladder stones may also be considered. There are several nodular densities in the uterus, the largest measuring 3.7 cm likely reflecting uterine fibroid. There is atherosclerosis of the abdominal aorta. No aneurysmal dilatation or dissection is present. There is a small amount of pelvic and abdominal free fluid. No pneumoperitoneum is seen. The bowel shows no definite evidence of obstruction or inflammation. IMPRESSION: 1. Small amount of pelvic free fluid which is indeterminate 2. Nodules along the posterior and left wall of the urinary bladder. Malignancy cannot be excluded. Urology consult is recommended. 3. Right nephrolithiasis. No evidence of obstructive uropathy.
[2018-08-05] MEDS: Magnesium Oxide 400 MG TAB 800 MG PO (12:42)
[2018-08-05] MEDS: Omnipaque 350 MG/ML 100 ML BTL IJ (12:58)
--- NOTE | 2018-08-05 13:34 | DI.VRAD_ITS ---
EXAM: CT Abdomen and Pelvis With Intravenous Contrast EXAM DATE/TIME: 08/05/2018 12:34 PM CLINICAL HISTORY: 68 years old, female; Signs and symptoms; Abdominal tenderness and vomiting TECHNIQUE: Axial computed tomography images of the abdomen and pelvis with intravenous contrast. Coronal and sagittal reformatted images were created and reviewed. COMPARISON: No relevant prior studies available. FINDINGS: Appendix is normal. Nonobstructing right nephrolithiasis. Small amount of pelvic free fluid the exact etiology is uncertain. No definite focal inflammatory process. Gastric wall is prominent however the stomach is nondistended. All the basilar lung scarring. No evidence of bowel obstruction. Irregular nodular densities to the posterior left aspect of the urinary bladder. The possibility of bladder malignancy cannot be excluded. If clinically indicated followup with cystoscopy may be needed. Probable 3.7 cm uterine fibroid. IMPRESSION: 1. Small amount of pelvic free fluid exact etiology uncertain. 2. Possible urinary bladder malignancy. 3. Nonobstructing right nephrolithiasis. Dictated and Authenticated by: Macario Manley MD. Ordering:JEET MILLER MD
[2018-08-05 14:13] VITALS: BP 159/76; PULSE 72; RESP 17; TEMP 37.1; O2SAT 98
--- NOTE | 2018-08-05 14:21 | NUR.NOTE ---
Nursing Note: road test: ambulated PT around jimenez O2 97%
--- NOTE | 2018-08-05 15:30 | DI.RAD_ITS ---
SYMPTOM/DIAGNOSIS: COUGH CHEST X-RAY: Portable AP view. Comparison 07/25/18 Heart size and pulmonary vasculature are within normal limits. The lungs show no evidence of congestive heart failure or pneumonia. No effusions or pneumothoraces are identified. Post surgical changes are again seen of a left shoulder replacement. An orthopaedic anchor is seen in the right humeral head. IMPRESSION: No acute pulmonary process
--- NOTE | 2018-08-05 15:55 | DI.VRAD_ITS ---
EXAM: XR Chest, 1 View EXAM DATE/TIME: 08/05/2018 3:49 PM CLINICAL HISTORY: 68 years old, female; Signs and symptoms; Cough TECHNIQUE: XR of the chest, 1 view. COMPARISON: CR XR CHEST 2V PA LATERAL 07/26/2018 12:18 PM FINDINGS: Minimal interstitial lung scarring. Cardiac silhouette within normal limits for technique. Costophrenic angles are sharp. No focal pulmonary consolidations. Prior left shoulder replacement and right shoulder surgery. IMPRESSION: No evidence of acute cardiopulmonary disease. Dictated and Authenticated by: Macario Manley MD. Ordering:JEET MILLER MD
--- NOTE | 2018-08-05 16:26 | HPE_ITS ---
Date of service: 08/05/18 Time of Service: 16:25 Assessment and Plan (1) Nausea & vomiting: Current visit: Yes Status: Acute The patient is being admitted for observation due to her inability to tolerate oral fluids related to nausea and vomiting has not been responsive to ondansetron. Because of this persistent nausea and vomiting is unclear. It was attributed to a UTI at last admission, but given we now know she has a bladder mass, and the urine culture grew less than 100,000 colony-forming units , I am not sure that the urinary tract infection was the cause of the previous admission. This may be related to the pelvic mass noted below. For now, we will can you supportive care with IV lactated Ringer's, and repletion of her electrolytes. We will try Compazine as an alternative antiemetic. With her nausea, we will hold her outpatient vitamins. Or also hold her pravastatin and aspirin as these are for primary prevention and she may have a procedure. (2) Bladder mass: Current visit: Yes Status: Acute Newly discovered bladder mass possibly consistent with bladder cancer. Urology has been consulted, and hopefully patient will be able to get a cystoscopy with biopsy tomorrow. She will be n.p.o. at midnight in case think this can get done. Bladder cancer does not typically cause such marketed nausea and vomiting if localized. We may consider pelvic ultrasound to assess for ovarian pathology if the extent of the bladder disease does not explain her symptoms. He does admit to some occasional smoking, and we will can encourage complete cessation given the relationship of smoking to bladder cancer. (3) Essential hypertension: Current visit: No Status: Acute Blood pressure slightly high in the emergency room, but not dangerously so. We will continue her amlodipine. (4) Hypomagnesemia: Current visit: No Status: Acute She was repleted orally last admission in the emergency room, but oral magnesium is poorly absorbed and causes GI upset. I will give her IV magnesium and follow her levels. (5) Cough: Current visit: No Status: Acute Exam and chest x-ray are not consistent with pneumonia. She may have a upper respiratory infection, but with no fever this is not consistent with influenza. (6) DVT prophylaxis: Current visit: No Status: Acute lovenox ordered (7) Discharge planning issues: Current visit: No Status: Acute Full Code. Observation status. History of Present Illness Chief Complaint: nausea and vomiting, weakness Narrative: Belén Velasquez is a 68-year-old female with a history of spinal stenosis and peripheral neuropathy, and intermittent smoker, who presents today with recurrence of nausea, vomiting, and weakness after being admitted 11 days ago with the same constellation of symptoms. The patient was in her normal state of health until July 24. At that point she started to get nauseous, which progressed until she vomited no matter what she ate. During the same time , she also developed a cough, as well as progressive generalized weakness. She presented to the emergency room July 25 and diagnosed with a UTI and admitted given her inability to take oral therapy and her overall malaise. Her urine culture did grow 50-100,000 E. coli, and she did improve after repleting her magnesium, potassium, and fluids as well as treatment with ciprofloxacin. Her oral intake and energy did improve, but she never returned to her baseline. Starting 2 days prior to this admission she had a recurrence of severe nausea , and again found that she vomited no matter what she ate. She again is having some rhinorrhea and cough. During the same time period, she has had frequent urination, though no dysuria or hematuria. She finished her course of ciprofloxacin. She tried to take ondansetron at home, but does not help her nausea. Review of Systems Review of Systems She has felt hot and cold, though she is not sure about overt fevers. No weight changes. No headaches or acute vision changes. No eye irritation. No mouth sores. She does have some throat tickling, but not severe pain. She has had some dysphagia to large pills since her cervical surgery, not new. Cough is unproductive. No chest pain, but she does feel congestion in her chest. No palpitations. No blood in the vomitus, vomitus watery. Soft stools twice a day , but no diarrhea. No blood or black stools. No vaginal discharge or bleeding. No breast lumps or discharge noted. No rashes or other skin lesions. No new joint pains or swelling. No other bleeding or bruising. Mood has been a little depressed, but not overly anxious or severely depressed. PFSH Family History Father Essential hypertension Glaucoma Medical History UTI (urinary tract infection) (Acute) Cough (Acute) Nausea and vomiting (Acute) Neuropathy (Acute) Essential hypertension Hx of bacterial pneumonia Spinal stenosis Social History household members: none current occupational status: retired frequency: 3-4 times per week Smoking/Tobacco Use Status: Former Tobacco Use alcohol intake: never substance use type: marijuana Surgical History Anterior Fusion Cervical Spine C3-C5 (07/31/16) Arthroplasty of knee Breast, Lumpectomy Colonoscopy - MAC (03/12/18) Hemiarthroplasty (09/07/15) Repair of umbilical hernia Rotator Cuff Repair Tenotomy and debridement tendon L shoulder (10/25/17) Meds Home Medications Medication Instructions Recorded Confirmed Type calcium carbonate-vitamin D3 1 ea PO DAILY 09/06/16 07/25/18 History [Calcium 500 + D] cetirizine [Zyrtec] 10 mg PO PRN 01/19/17 07/25/18 History folic acid 800 mcg PO DAILY tab-cap 01/19/17 07/25/18 History selenomethionine 200 mcg PO DAILY 06/21/17 07/25/18 History aspirin 81 mg PO DAILY tab-cap 07/26/17 07/25/18 History multivitamin [Daily Multi-Vitamin] 1 ea PO DAILY 09/26/17 07/25/18 History amlodipine 5 mg PO HS #90 tab 12/13/17 07/25/18 Rx gabapentin 300 mg PO TID #450 tab-cap 04/24/18 07/25/18 History pravastatin 40 mg PO DAILY #90 tab-cap 04/24/18 07/25/18 Rx atenolol 50 mg tablet 75 mg PO HS #135 tab 07/06/18 07/25/18 Rx ranitidine 150 mg tablet 150 mg PO BID #180 tab-cap 07/06/18 07/25/18 Rx ibuprofen 600 mg PO BID 07/25/18 07/25/18 History magnesium oxide 400 mg PO DAILY@1000 #14 tab 07/28/18 Rx ondansetron [Zofran ODT] 4 mg PO TID PRN #10 tab 07/28/18 Rx Allergies Allergy/AdvReac Type Severity Reaction Status Date / Time codeine AdvReac Intermediate Nausea Unverified 08/03/18 08:54 hydrochlorothiazide AdvReac Mild hypomagnese Unverified 08/03/18 08:54 pop duloxetine AdvReac Other (See Unverified 08/03/18 08:54 Comment) narcotics AdvReac Intermediate Nausea, Uncoded 08/03/18 08:54 vomiting Exam Narrative Exam Narrative: General: Alert and oriented x3, pleasant and conversant, appears tired but not in acute distress. Head: Normocephalic atraumatic. Pupils equal round reactive to light with extraocular motion intact. Conjunctive are clear with no icterus. Moist mucous membranes with oropharynx benign. Neck: Supple, normal range of motion, no masses or lymphadenopathy, no thyromegaly Lungs: Clear to auscultation bilaterally with normal effort Cardiovascular: Regular rate and rhythm with no murmurs gallops or rubs. Pedal and radial pulses 2+ bilaterally. Abdomen: Active bowel sounds in 4 quadrants, soft, nondistended. Mild to moderately tender in the suprapubic to right lower abdomen. No masses appreciated. No organomegaly. No guarding or rebound Pelvic: Deferred as CT scan already done Back: Mild right CVA tenderness, none on left Extremities: No gross deformity, no joint redness or swelling Skin: No rashes or suspicious skin lesions Neurologic: Normal speech and coordination, cranial nerves grossly intact, normal movement in 4 extremities. Chronic abnormal sensation in hands and feet Psychiatric: Mood and affect normal. Normal thought process. Imaging: Chest x-ray: Normal chest, no evidence of acute cardiopulmonary disease CT of the abdomen and pelvis with intravenous contrast: Small amount of pelvic free fluid, possible urinary bladder malignancy, nonobstructing right nephrolithiasis. Results Labs : 08/05/18 11:25 08/05/18 11:25 Laboratory Results - last 24 hr 08/05/18 08/05/18 08/05/18 11:06 11:25 11:25 WBC 9.11 RBC 4.05 Hgb 12.3 Hct 36.9 MCV 91.1 MCH 30.4 MCHC 33.3 RDW 12.7 Plt Count 211 MPV 10.9 Immature Gran % 0.1 Neutrophils % 82.0 Lymphocytes % 12.4 Monocytes % 4.9 Eosinophils % 0.4 Basophils % 0.2 Absolute Neutrophils 7.46 H Absolute Lymphocytes 1.13 L Absolute Monocytes 0.45 Absolute Eosinophils 0.04 Absolute Basophils 0.02 Sodium 136 Potassium 3.7 Chloride 100 Carbon Dioxide 26.5 Anion Gap 9.5 BUN 12 Creatinine 0.82 Estimated GFR/1.73 m2 >= 60.00 Glucose 105 H Calcium 9.0 Magnesium 1.3 L Total Bilirubin 0.6 AST 23 ALT 28 Alkaline Phosphatase 98 Troponin I < 0.02 Total Protein 7.1 Albumin 3.2 L Urine Color Yellow Urine Clarity Clear Urine pH 7.5 Ur Specific [place] 1.015 Urine Protein 30 H Urine Ketones Negative Urine Blood Trace-intact H Urine Nitrite Negative Urine Bilirubin Negative Urine Urobilinogen 0.2 Ur Leukocyte Esterase Negative Urine RBC 5-10 H Urine WBC 0-2 Ur Epithelial Cells Few Urine Crystals Moderate amorphous Urine Bacteria Few Urine Casts Negative Urine Mucus Trace Urine Other Negative Ur Culture Indicated? No Urine Glucose Negative Last Vital Signs Temp 37.1 C 08/05/18 14:13 Pulse 72 08/05/18 14:13 Resp 17 08/05/18 14:13 BP 159/76 H 08/05/18 14:13 Pulse Ox 98 08/05/18 14:13
[2018-08-05 16:48] VITALS: BP 188/73; PULSE 79; RESP 20; TEMP 36.7; O2SAT 97
[2018-08-05] MEDS: Enoxaparin 40 MG/0.4 ML SYR SC (17:19)
[2018-08-05] MEDS: Pantoprazole 40 MG VIAL IVP (17:19)
[2018-08-05] MEDS: Lactated Ringers 1,000 ML 120 ML IV (17:20)
[2018-08-05] MEDS: MAGNESIUM SULFATE 2 GM/50 ML BAG IVPB (17:26)
[2018-08-05 17:35] LABS: Magnesium 1.4 mg/dL (1.8-2.4)
[2018-08-05] MEDS: Atenolol 50 MG TAB 75 MG PO (20:08)
[2018-08-05] MEDS: Gabapentin 300 MG CAP PO (20:08)
[2018-08-05] MEDS: amLODIPine 5 MG TAB PO (20:08)
[2018-08-05 23:40] VITALS: BP 154/81; PULSE 74; RESP 18; TEMP 37.2; O2SAT 94
[2018-08-06] MEDS: Lactated Ringers 1,000 ML 120 ML IV ×3 (01:15→23:28)
[2018-08-06 06:57] LABS: Anion Gap 10.8 mmol/L (3-11); BUN 10 mg/dL (7-18); CO2 25.2 mmol/L (21.0-32.0); Calcium 8.5 mg/dL (8.5-10.1); Chloride 106 mmol/L (98-107); Glucose 94 mg/dL (70-100); Potassium 3.1 mmol/L (3.5-5.1); Sodium 142 mmol/L (136-145)
[2018-08-06 07:10] VITALS: BP 154/87; PULSE 66; RESP 18; TEMP 36.9; O2SAT 94
[2018-08-06] MEDS: Gabapentin 300 MG CAP PO ×3 (07:38→19:38)
--- NOTE | 2018-08-06 08:07 | UCONE_ITS ---
Date of service: 08/06/18 Time of Service: 07:22 History of Present Illness Chief Complaint: Bladder mass Narrative: This is a 68-year-old woman who was admitted through the emergency room yesterday with complaints of nausea and vomiting. She had electrolyte abnormalities. As part of her evaluation, a CT of the abdomen and pelvis was ordered. Bladder masses were identified. I have been asked to see her and possibly arrange for a bladder mass biopsy today. She has not seen any gross hematuria. She has not had any clots in her urine. She has been a smoker in the past, but tells me that she quit about 4 or 5 years ago. She routinely takes aspirin and ibuprofen. Her last dose of each was on 2017. She has been diagnosed with urinary tract infections in the past. She is never had any type of urologic surgery. Review of Systems Constitutional Reports fatigue, Denies fever(s) and Reports weakness Eyes Denies blurry vision ENT Reports nasal congestion and Reports post nasal drip Cardiovascular Denies chest pain and Denies palpitations Respiratory Reports cough and Denies hemoptysis Gastrointestinal Reports nausea and Reports vomiting Musculoskeletal Reports arthralgias and Reports limited range of motion Comments: Left shoulder Neurologic Reports weakness Comments: Peripheral neuropathy Endocrine Reports fatigue and Denies palpitations Hematologic/Lymphatic Denies easy bleeding and Denies easy bruising PFSH Family History Father Essential hypertension Glaucoma Medical History UTI (urinary tract infection) (Acute) Cough (Acute) Nausea and vomiting (Acute) Neuropathy (Acute) Essential hypertension Hx of bacterial pneumonia Spinal stenosis Social History household members: none current occupational status: retired frequency: 3-4 times per week Smoking/Tobacco Use Status: Former Tobacco Use alcohol intake: never substance use type: marijuana Surgical History Anterior Fusion Cervical Spine C3-C5 (07/31/16) Arthroplasty of knee Breast, Lumpectomy Colonoscopy - MAC (03/12/18) Hemiarthroplasty (09/07/15) Repair of umbilical hernia Rotator Cuff Repair Tenotomy and debridement tendon L shoulder (10/25/17) Exam Narrative Exam Narrative: She does not appear to be in any current distress. She is cooperative. She does not appear septic or toxic. Her chest wall motion is normal. She does not appear short of breath at rest. Her abdomen is soft with no masses. There is no CVA tenderness. She is awake, alert and oriented. I did review her CT of the abdomen and pelvis. There appear to be several masses within the bladder. Results Last Vital Signs Temp 36.9 C 08/06/18 07:10 Pulse 66 08/06/18 07:10 Resp 18 08/06/18 07:10 BP 154/87 H 08/06/18 07:10 Pulse Ox 94 L 08/06/18 07:10 Labs : 08/05/18 11:25 08/06/18 06:20 Laboratory Results - last 24 hr 08/05/18 08/05/18 08/05/18 11:06 11:25 11:25 WBC 9.11 RBC 4.05 Hgb 12.3 Hct 36.9 MCV 91.1 MCH 30.4 MCHC 33.3 RDW 12.7 Plt Count 211 MPV 10.9 Immature Gran % 0.1 Neutrophils % 82.0 Lymphocytes % 12.4 Monocytes % 4.9 Eosinophils % 0.4 Basophils % 0.2 Absolute Neutrophils 7.46 H Absolute Lymphocytes 1.13 L Absolute Monocytes 0.45 Absolute Eosinophils 0.04 Absolute Basophils 0.02 Sodium 136 Potassium 3.7 Chloride 100 Carbon Dioxide 26.5 Anion Gap 9.5 BUN 12 Creatinine 0.82 Estimated GFR/1.73 m2 >= 60.00 Glucose 105 H Calcium 9.0 Magnesium 1.3 L Total Bilirubin 0.6 AST 23 ALT 28 Alkaline Phosphatase 98 Troponin I < 0.02 Total Protein 7.1 Albumin 3.2 L Urine Color Yellow Urine Clarity Clear Urine pH 7.5 Ur Specific [place] 1.015 Urine Protein 30 H Urine Ketones Negative Urine Blood Trace-intact H Urine Nitrite Negative Urine Bilirubin Negative Urine Urobilinogen 0.2 Ur Leukocyte Esterase Negative Urine RBC 5-10 H Urine WBC 0-2 Ur Epithelial Cells Few Urine Crystals Moderate amorphous Urine Bacteria Few Urine Casts Negative Urine Mucus Trace Urine Other Negative Ur Culture Indicated? No Urine Glucose Negative 08/05/18 08/06/18 16:50 06:20 WBC RBC Hgb Hct MCV MCH MCHC RDW Plt Count MPV Immature Gran % Neutrophils % Lymphocytes % Monocytes % Eosinophils % Basophils % Absolute Neutrophils Absolute Lymphocytes Absolute Monocytes Absolute Eosinophils Absolute Basophils Sodium 142 Potassium 3.1 L Chloride 106 Carbon Dioxide 25.2 Anion Gap 10.8 BUN 10 Creatinine 0.80 Estimated GFR/1.73 m2 >= 60.00 Glucose 94 Calcium 8.5 Magnesium 1.4 L Total Bilirubin AST ALT Alkaline Phosphatase Troponin I Total Protein Albumin Urine Color Urine Clarity Urine pH Ur Specific [place] Urine Protein Urine Ketones Urine Blood Urine Nitrite Urine Bilirubin Urine Urobilinogen Ur Leukocyte Esterase Urine RBC Urine WBC Ur Epithelial Cells Urine Crystals Urine Bacteria Urine Casts Urine Mucus Urine Other Ur Culture Indicated? Urine Glucose Assessment and Plan (1) Bladder mass: Current visit: Yes Status: Acute We recommend a cystoscopy with transurethral resection of any visible under either general or spinal anesthesia. The transurethral resection access both a biopsy as well as a staging maneuver. We remove some underlying lamina propria and muscularis to make sure there is no sign of tumor involvement of the deeper bladder layers. With her history of spinal stenosis, I doubt that she is a good candidate for a spinal anesthetic. We would need to check with our anesthesia providers to see when they would be comfortable providing a general anesthetic. This patient has recently been admitted with a cough and there were concerns regarding the presence of pneumonia. The big risk for transurethral resections is bleeding. We would need the patient to be off both her aspirin and anti-inflammatory medications for 3-5 days before we could safely undertake a nonemergent transurethral resection. I will talk to the anesthesia providers about the timing and safety of general anesthesia. I will talk to my office staff regarding scheduling possibilities.
[2018-08-06 09:10] VITALS: O2SAT 94
[2018-08-06] MEDS: MAGNESIUM SULFATE 2 GM/50 ML BAG IVPB (09:53)
--- NOTE | 2018-08-06 10:38 | W.PM.DS.N ---
Date of service: 08/06/18 Time of Service: 10:39 DS: Diagnosis Discharge Diagnosis (1) Bladder mass: Status: Acute Discharge Plan Disposition Patient Disposition: HOME Condition: Improving Discharge Details Chief Complaint: Nausea/Vomit/Diar Reason For Visit: BLADDER ABNORMALITY Admit Date/Time: 08/05/18 15:39 Admit Provider: Robert Ott Attending Provider: Robert Ott Primary Care Provider: Mary Dorsey ED Provider: Walter Chaudhari Hospital Course Hospital Course: Belén Velaqsuez is a 68-year-old female with a history of spinal stenosis and peripheral neuropathy, and intermittent smoker, who presented to the ED on 08/05/18 with recurrence of nausea, vomiting, and weakness. She had recently been admitted with the same constellation of symptoms. At that time she was treated for a UTI, given IV fluids and electrolyte replacement and discharged home in improved condition. She felt better until 2 days prior to this admission when she began to have nausea and vomiting again. She continued to have frequent urination, but no dysuria or hematuria. In the ED, she had reassuring labs, however, she reported mild abdominal tenderness and went on to have a CT scan. The CT scan did not show evidence of an acute process but did show new findings of concerning abnormalities in her bladder suggestive of potential malignancy. She went on to have a Urology Consultation who recommends a cystoscopy with transurethral resection. For this procedure she needs to be off aspirin and NSAIDS for 3-5 days, therefore, the procedure has been scheduled for 09/06/18 as an outpatient. Today, she feels better. She is not nauseated and is no longer vomiting. She was noted to have electrolyte abnormalities and received magnesium and potassium supplementation. She will be discharged home with potassium, she already has magnesium at home. She is encouraged to stay hydrated. She will have follow-up labs to reassess her magnesium and potassium. She will follow-up with her primary care provider as scheduled. This case discussed with Dr. Swain who is in agreement. Home Meds and New Rx's Prescriptions: New prochlorperazine maleate [Compazine] 5 mg tablet 5 mg PO Q6H PRN PRN (Reason: nausea and vomiting) Qty: 20 RF: 0 potassium chloride 10 mEq capsule, extended release 20 meq PO DAILY 14 Days Qty: 14 RF: 0 Continue calcium carbonate-vitamin D3 [Calcium 500 + D] 1 EACH tablet 1 ea PO DAILY RF: 0 folic acid 1 MG tablet 800 mcg PO DAILY RF: 0 cetirizine [Zyrtec] 10 MG capsule 10 mg PO PRN RF: 0 selenomethionine 200 MCG tablet 200 mcg PO DAILY RF: 0 multivitamin [Daily Multi-Vitamin] 1 EACH tablet 1 ea PO DAILY RF: 0 amlodipine 5 MG tablet 5 mg PO HS Qty: 90 RF: 2 pravastatin 40 MG tablet 40 mg PO DAILY Qty: 90 RF: 3 gabapentin 300 MG capsule 300 mg PO TID Qty: 450 RF: 3 atenolol 50 mg tablet 75 mg PO HS Qty: 135 RF: 3 ranitidine HCl 150 mg tablet 150 mg PO BID Qty: 180 RF: 3 magnesium oxide 400 mg (241.3 mg magnesium) Tablet 400 mg PO DAILY@1000 Qty: 14 RF: 0 Discontinued aspirin 81 MG tablet,chewable 81 mg PO DAILY RF: 0 ibuprofen 600 MG tablet 600 mg PO BID RF: 0 ondansetron [Zofran ODT] 4 mg tablet,disintegrating 4 mg PO TID PRN (Reason: nausea and vomiting) Qty: 10 RF: 0 Discharge Instructions Instructions: Hypokalemia (DC), Transurethral Resection of Bladder Tumors (DC), Hypomagnesemia (DC) Additional Instructions: Do not take Aspirin or NSAIDS (including ibuprofen) for one week prior to your procedure with Dr. Wiggins. Your procedure is scheduled for September 06, 2018. Day surgery will be in touch with you prior to this date. You have a new prescription Potassium and Compazine for nausea and vomiting. Stay hydrated. You will need to have labs drawn on Monday08/10/18 to reassess your potassium and magnesium. Follow up with your PCP as scheduled. Take care! Stand Alone Forms: Nursing Discharge Form Referrals: Davian Wiggins MD [ [facility] ST[facility]FF PHYSICIAN] - 09/06/18 1:00 pm (cystoscopy) Mary Dorsey MD [Primary Care Provider] - 08/15/18 12:30 pm Activity:: Activity as Tolerated Equipment/Supplies:: No Equipment Needed Diet:: Low Sodium Discharge Orders Discharge Orders: Discharge Order (Routine); Ordered 08/07/18 Ordered By: Lynda Dinh Other Ambulatory Orders: Potassium (Routine) Timeframe: 20180810 Location: Determined by Patient Ordered By: Lynda Dinh Magnesium (Routine) Timeframe: 20180810 Location: Determined by Patient Ordered By: Lynda Dinh Discharge Data Discharge Date/Time-TO BE ENTERED AT DEPARTURE: 08/07/18 17:11 DS: Summary Time spent discussing smoking cessation with patient: 3 to 10 minutes Status at Discharge Functional status at discharge: independent ambulation Time Spent with Patient Greater than 30 minutes Exam Narrative Exam Narrative: General: Alert and oriented x3, pleasant and conversant, no acute distress. Head: Conjunctive are clear with moist mucous membranes Lungs: Clear to auscultation bilaterally with normal effort Cardiovascular: Regular rate and rhythm with no murmurs gallops or rubs. Pedal and radial pulses 2+ bilaterally. Abdomen: Active bowel sounds, soft, nondistended. Mildly tender in the suprapubic to right lower abdomen. improved. No masses appreciated. No organomegaly. No guarding or rebound Extremities: No gross deformity, no joint redness or swelling Skin: No rashes or suspicious skin lesions DS: Data Vitals/I&O Vitals and I&O: Vital Signs Temperature 36.9 C 08/06/18 07:10 Temperature Source Tympanic 08/06/18 07:10 Pulse 66 08/06/18 07:10 Pulse Rhythm Regular 08/06/18 08:00 Respiratory Rate 18 08/06/18 07:10 Respiratory Effort Non-Labored 08/06/18 08:00 Respiratory Depth Normal 08/06/18 08:00 Respiratory Pattern Normal 08/06/18 08:00 Blood Pressure 154/87 H 08/06/18 07:10 Blood Pressure Position Supine 08/05/18 10:53 Pulse Oximetry 94 L 08/06/18 07:10 Oxygen Delivery Method Room Air 08/06/18 07:10 Oxygen Flow Rate 0 08/06/18 07:10 Pain Level 2 08/05/18 16:48 Intake & Output 08/05/18 08/05/18 08/06/18 11:59 23:59 11:59 Intake Total 3438 / 3438 Output Total 500 / 500 850 / 850 Balance 2938 / 2938 -850 / -850 Weight 61.235 kg 57.2 kg 58.5 kg Intake: IV 2718 / 2718 Oral 720 / 720 Output: Urine 500 / 500 850 / 850 Other: Urine Color Yellow Yellow Urine Appearance Clear Clear Urine Odor Normal Stool Size Moderate Stool Characteristics Soft Emesis Description Mucous Voiding Methods Bedside Commode Bedside Commode Labs on day of discharge: Labs from last 24 hours 08/06/18 08/05/18 08/05/18 06:20 16:50 11:25 WBC 9.11 RBC 4.05 Hgb 12.3 Hct 36.9 MCV 91.1 MCH 30.4 MCHC 33.3 RDW 12.7 Plt Count 211 MPV 10.9 Immature Gran % 0.1 Neutrophils % 82.0 Lymphocytes % 12.4 Monocytes % 4.9 Eosinophils % 0.4 Basophils % 0.2 Absolute Neutrophils 7.46 H Absolute Lymphocytes 1.13 L Absolute Monocytes 0.45 Absolute Eosinophils 0.04 Absolute Basophils 0.02 Sodium 142 Potassium 3.1 L Chloride 106 Carbon Dioxide 25.2 Anion Gap 10.8 BUN 10 Creatinine 0.80 Estimated GFR/1.73 m2 >= 60.00 Glucose 94 Calcium 8.5 Magnesium 1.4 L Total Bilirubin AST ALT Alkaline Phosphatase Troponin I Total Protein Albumin Urine Color Urine Clarity Urine pH Ur Specific [place] Urine Protein Urine Ketones Urine Blood Urine Nitrite Urine Bilirubin Urine Urobilinogen Ur Leukocyte Esterase Urine RBC Urine WBC Ur Epithelial Cells Urine Crystals Urine Bacteria Urine Casts Urine Mucus Urine Other Ur Culture Indicated? Urine Glucose 08/05/18 08/05/18 11:25 11:06 WBC RBC Hgb Hct MCV MCH MCHC RDW Plt Count MPV Immature Gran % Neutrophils % Lymphocytes % Monocytes % Eosinophils % Basophils % Absolute Neutrophils Absolute Lymphocytes Absolute Monocytes Absolute Eosinophils Absolute Basophils Sodium 136 Potassium 3.7 Chloride 100 Carbon Dioxide 26.5 Anion Gap 9.5 BUN 12 Creatinine 0.82 Estimated GFR/1.73 m2 >= 60.00 Glucose 105 H Calcium 9.0 Magnesium 1.3 L Total Bilirubin 0.6 AST 23 ALT 28 Alkaline Phosphatase 98 Troponin I < 0.02 Total Protein 7.1 Albumin 3.2 L Urine Color Yellow Urine Clarity Clear Urine pH 7.5 Ur Specific [place] 1.015 Urine Protein 30 H Urine Ketones Negative Urine Blood Trace-intact H Urine Nitrite Negative Urine Bilirubin Negative Urine Urobilinogen 0.2 Ur Leukocyte Esterase Negative Urine RBC 5-10 H Urine WBC 0-2 Ur Epithelial Cells Few Urine Crystals Moderate amorphous Urine Bacteria Few Urine Casts Negative Urine Mucus Trace Urine Other Negative Ur Culture Indicated? No Urine Glucose Negative [facility] Family History Father Essential hypertension Glaucoma Medical History UTI (urinary tract infection) (Acute) Cough (Acute) Nausea and vomiting (Acute) Neuropathy (Acute) Essential hypertension Hx of bacterial pneumonia Spinal stenosis Social History household members: none current occupational status: retired frequency: 3-4 times per week Smoking/Tobacco Use Status: Current-Occasional alcohol intake: never substance use type: marijuana additional social history: Lives in her own apartment in [place], with 7 cats and 1 dog From [employer], retired in [place] after going to college at [employer] 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 Surgical History Anterior Fusion Cervical Spine C3-C5 (07/31/16) Arthroplasty of knee Breast, Lumpectomy Colonoscopy - MAC (03/12/18) Hemiarthroplasty (09/07/15) Repair of umbilical hernia Rotator Cuff Repair Tenotomy and debridement tendon L shoulder (10/25/17)
--- NOTE | 2018-08-06 10:43 | DSE_ITS ---
Date of service: 08/06/18 Time of Service: 10:39 DS: Diagnosis Discharge Diagnosis (1) Bladder mass: Status: Acute Discharge Plan Disposition Patient Disposition: HOME Condition: Improving Discharge Details Chief Complaint: Nausea/Vomit/Diar Reason For Visit: BLADDER ABNORMALITY Admit Date/Time: 08/05/18 15:39 Admit Provider: Robert Ott Attending Provider: Robert Ott Primary Care Provider: Mary Dorsey ED Provider: Walter Chaudhari Hospital Course Hospital Course: Belén Velasquez is a 68-year-old female with a history of spinal stenosis and peripheral neuropathy, and intermittent smoker, who presented to the ED on 08/05 with recurrence of nausea, vomiting, and weakness. She had recently been admitted with the same constellation of symptoms. At that time she was treated for a UTI, given IV fluids and electrolyte replacement and discharged home in improved condition. She felt better until 2 days prior to this admission when she began to have nausea and vomiting again. She continued to have frequent urination, but no dysuria or hematuria. In the ED, she had reassuring labs, however, she reported mild abdominal tenderness and went on to have a CT scan. The CT scan did not show evidence of an acute process but did show new findings of concerning abnormalities in her bladder suggestive of potential malignancy. She went on to have a Urology Consultation who recommends a cystoscopy with transurethral resection. For this procedure she needs to be off aspirin and NSAIDS for 3-5 days, therefore, the procedure has been scheduled for 09/06/18 as an outpatient. Today, she feels better. She is not nauseated and is no longer vomiting. She was noted to have electrolyte abnormalities and received magnesium and potassium supplementation. She will be discharged home with potassium, she already has magnesium at home. She is encouraged to stay hydrated. She will have follow-up labs to reassess her magnesium and potassium. She will follow- up with her primary care provider as scheduled. This case discussed with Dr. Swain who is in agreement. Home Meds and New Rx's Prescriptions: New prochlorperazine maleate [Compazine] 5 mg tablet 5 mg PO Q6H PRN PRN (Reason: nausea and vomiting) Qty: 20 RF: 0 potassium chloride 10 mEq capsule, extended release 20 meq PO DAILY 14 Days Qty: 14 RF: 0 Continue calcium carbonate-vitamin D3 [Calcium 500 + D] 1 EACH tablet 1 ea PO DAILY RF: 0 folic acid 1 MG tablet 800 mcg PO DAILY RF: 0 cetirizine [Zyrtec] 10 MG capsule 10 mg PO PRN RF: 0 selenomethionine 200 MCG tablet 200 mcg PO DAILY RF: 0 multivitamin [Daily Multi-Vitamin] 1 EACH tablet 1 ea PO DAILY RF: 0 amlodipine 5 MG tablet 5 mg PO HS Qty: 90 RF: 2 pravastatin 40 MG tablet 40 mg PO DAILY Qty: 90 RF: 3 gabapentin 300 MG capsule 300 mg PO TID Qty: 450 RF: 3 atenolol 50 mg tablet 75 mg PO HS Qty: 135 RF: 3 ranitidine HCl 150 mg tablet 150 mg PO BID Qty: 180 RF: 3 magnesium oxide 400 mg (241.3 mg magnesium) Tablet 400 mg PO DAILY@1000 Qty: 14 RF: 0 Discontinued aspirin 81 MG tablet,chewable 81 mg PO DAILY RF: 0 ibuprofen 600 MG tablet 600 mg PO BID RF: 0 ondansetron [Zofran ODT] 4 mg tablet,disintegrating 4 mg PO TID PRN (Reason: nausea and vomiting) Qty: 10 RF: 0 Discharge Instructions Instructions: Hypokalemia (DC), Transurethral Resection of Bladder Tumors (DC) , Hypomagnesemia (DC) Additional Instructions: Do not take Aspirin or NSAIDS (including ibuprofen) for one week prior to your procedure with Dr. Wiggins. Your procedure is scheduled for September 06, 2018. Day surgery will be in touch with you prior to this date. You have a new prescription Potassium and Compazine for nausea and vomiting. Stay hydrated. You will need to have labs drawn on Monday08/10/18 to reassess your potassium and magnesium. Follow up with your PCP as scheduled. Take care! Stand Alone Forms: Nursing Discharge Form Referrals: Davian Wiggins MD [ [facility] STAFF PHYSICIAN] - 09/06/18 1:00 pm (cystoscopy) Mary Dorsey MD [Primary Care Provider] - 08/15/18 12:30 pm Activity:: Activity as Tolerated Equipment/Supplies:: No Equipment Needed Diet:: Low Sodium Discharge Orders Discharge Orders: Discharge Order (Routine); Ordered 08/07/18 Ordered By: Lynda Dinh Other Ambulatory Orders: Potassium (Routine) Timeframe: 20180810 Location: Determined by Patient Ordered By: Lynda Dinh Magnesium (Routine) Timeframe: 20180810 Location: Determined by Patient Ordered By: Lynda Dinh Discharge Data Discharge Date/Time-TO BE ENTERED AT DEPARTURE: 08/07/18 17:11 DS: Summary Time spent discussing smoking cessation with patient: 3 to 10 minutes Status at Discharge Functional status at discharge: independent ambulation Time Spent with Patient Greater than 30 minutes Exam Narrative Exam Narrative: General: Alert and oriented x3, pleasant and conversant, no acute distress. Head: Conjunctive are clear with moist mucous membranes Lungs: Clear to auscultation bilaterally with normal effort Cardiovascular: Regular rate and rhythm with no murmurs gallops or rubs. Pedal and radial pulses 2+ bilaterally. Abdomen: Active bowel sounds, soft, nondistended. Mildly tender in the suprapubic to right lower abdomen. improved. No masses appreciated. No organomegaly. No guarding or rebound Extremities: No gross deformity, no joint redness or swelling Skin: No rashes or suspicious skin lesions DS: Data Vitals/I&O Vitals and I&O: Vital Signs Temperature 36.9 C 08/06/18 07:10 Temperature Source Tympanic 08/06/18 07:10 Pulse 66 08/06/18 07:10 Pulse Rhythm Regular 08/06/18 08:00 Respiratory Rate 18 08/06/18 07:10 Respiratory Effort Non-Labored 08/06/18 08:00 Respiratory Depth Normal 08/06/18 08:00 Respiratory Pattern Normal 08/06/18 08:00 Blood Pressure 154/87 H 08/06/18 07:10 Blood Pressure Position Supine 08/05/18 10:53 Pulse Oximetry 94 L 08/06/18 07:10 Oxygen Delivery Method Room Air 08/06/18 07:10 Oxygen Flow Rate 0 08/06/18 07:10 Pain Level 2 08/05/18 16:48 Intake & Output 08/05/18 08/05/18 08/06/18 11:59 23:59 11:59 Intake Total 3438 / 3438 Output Total 500 / 500 850 / 850 Balance 2938 / 2938 -850 / -850 Weight 61.235 kg 57.2 kg 58.5 kg Intake: IV 2718 / 2718 Oral 720 / 720 Output: Urine 500 / 500 850 / 850 Other: Urine Color Yellow Yellow Urine Appearance Clear Clear Urine Odor Normal Stool Size Moderate Stool Characteristics Soft Emesis Description Mucous Voiding Methods Bedside Commode Bedside Commode Labs on day of discharge: Labs from last 24 hours 08/06/18 08/05/18 08/05/18 06:20 16:50 11:25 WBC 9.11 RBC 4.05 Hgb 12.3 Hct 36.9 MCV 91.1 MCH 30.4 MCHC 33.3 RDW 12.7 Plt Count 211 MPV 10.9 Immature Gran % 0.1 Neutrophils % 82.0 Lymphocytes % 12.4 Monocytes % 4.9 Eosinophils % 0.4 Basophils % 0.2 Absolute Neutrophils 7.46 H Absolute Lymphocytes 1.13 L Absolute Monocytes 0.45 Absolute Eosinophils 0.04 Absolute Basophils 0.02 Sodium 142 Potassium 3.1 L Chloride 106 Carbon Dioxide 25.2 Anion Gap 10.8 BUN 10 Creatinine 0.80 Estimated GFR/1.73 m2 >= 60.00 Glucose 94 Calcium 8.5 Magnesium 1.4 L Total Bilirubin AST ALT Alkaline Phosphatase Troponin I Total Protein Albumin Urine Color Urine Clarity Urine pH Ur Specific [place] Urine Protein Urine Ketones Urine Blood Urine Nitrite Urine Bilirubin Urine Urobilinogen Ur Leukocyte Esterase Urine RBC Urine WBC Ur Epithelial Cells Urine Crystals Urine Bacteria Urine Casts Urine Mucus Urine Other Ur Culture Indicated? Urine Glucose 08/05/18 08/05/18 11:25 11:06 WBC RBC Hgb Hct MCV MCH MCHC RDW Plt Count MPV Immature Gran % Neutrophils % Lymphocytes % Monocytes % Eosinophils % Basophils % Absolute Neutrophils Absolute Lymphocytes Absolute Monocytes Absolute Eosinophils Absolute Basophils Sodium 136 Potassium 3.7 Chloride 100 Carbon Dioxide 26.5 Anion Gap 9.5 BUN 12 Creatinine 0.82 Estimated GFR/1.73 m2 >= 60.00 Glucose 105 H Calcium 9.0 Magnesium 1.3 L Total Bilirubin 0.6 AST 23 ALT 28 Alkaline Phosphatase 98 Troponin I < 0.02 Total Protein 7.1 Albumin 3.2 L Urine Color Yellow Urine Clarity Clear Urine pH 7.5 Ur Specific [place] 1.015 Urine Protein 30 H Urine Ketones Negative Urine Blood Trace-intact H Urine Nitrite Negative Urine Bilirubin Negative Urine Urobilinogen 0.2 Ur Leukocyte Esterase Negative Urine RBC 5-10 H Urine WBC 0-2 Ur Epithelial Cells Few Urine Crystals Moderate amorphous Urine Bacteria Few Urine Casts Negative Urine Mucus Trace Urine Other Negative Ur Culture Indicated? No Urine Glucose Negative [facility] Family History Father Essential hypertension Glaucoma Medical History UTI (urinary tract infection) (Acute) Cough (Acute) Nausea and vomiting (Acute) Neuropathy (Acute) Essential hypertension Hx of bacterial pneumonia Spinal stenosis Social History household members: none current occupational status: retired frequency: 3-4 times per week Smoking/Tobacco Use Status: Current-Occasional alcohol intake: never substance use type: marijuana additional social history: Lives in her own apartment in [place], with 7 cats and 1 dog From 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 Surgical History Anterior Fusion Cervical Spine C3-C5 (07/31/16) Arthroplasty of knee Breast, Lumpectomy Colonoscopy - MAC (03/12/18) Hemiarthroplasty (09/07/15) Repair of umbilical hernia Rotator Cuff Repair Tenotomy and debridement tendon L shoulder (10/25/17)
--- NOTE | 2018-08-06 10:54 | PDOC.CMIN ---
Care Management Initial Assess REASON FOR HOSPITALIZATION:: Bladder Abnormality PAST MEDICAL HISTORY/PAST SURGICAL HISTORY:: Essential hypertension. Hx of bacterial pneumonia. Spinal stenosis. 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 Arthroplasty of knee. Breast, Lumpectomy. Colonoscopy-MAC (03/12/18). Hemiarthroplasty (09/07/15). Repair of umbilical hernia. Rotator Cuff Repair. Tenotomy and debridement tendon L shoulder (10/25/17) PREVIOUS FUNCTIONAL STATUS/SOCIAL/FAMILY SUPPORTS:: Belén resides alone in [facility], she states that she has family whom live 4+ hours away. She is independent with ADLs in the community. She cares for her one dog and seven cats at home. She reports she smokes marijuana daily to manage her neuropathy symptoms and chronic pain, she reports she has tried CBD oil in the past without the same effect and is hopeful she can attain medical marijuana approval as she does not want to smoke due to her lungs. She reports a healthy support network of friends but also shares that they enable her to smoke cigarettes as she does not purchase cigarettes on her own. Belén reports her last cigarette was a few weeks ago. CURRENT FUNCTIONAL STATUS:: Belén is lying in bed, open to conversation. She is forthcoming with information and pleasant in interaction. ADVANCE DIRECTIVES:: None on file Has patient been provided with information about the portal?: Yes Did the patient sign up for the portal?: No CODE STATUS:: Full Code INSURANCE COVERAGE / FINANCIAL ISSUES:: Medicare, [employer] CURRENT HOME/COMMUNITY SERVICES/EQUIPMENT:: Belén attends outpatient PT with Michael Avila Z[facility] weekly. She reports a cane and grab bars in the home setting. PRIMARY CARE PHYSICIAN:: Mary Dorsey; Belén reports Dr. Dorsey is only able to see her on Tuesdays so she does see other providers within the [facility] practice. POTENTIAL DISCHARGE NEEDS:: Follow up appointment with PCP. Resume outpatient PT with Michael Avila in [facility], follow up outpatient appointment with Dr. Wiggins for bladder mass. PATIENT/FAMILY EDUCATION NEEDS:: Review discharge instructions, discuss Ask Me Three. ANTICIPATED BARRIERS TO DISCHARGE:: None identified at this time. TRANSPORTATION:: Belén reports she will transport via private vehicle with a friend. PLAN:: Belén will return home with continued outpatient PT through Michael Avila in [facility]. She will follow up with her PCP and Dr. Wiggins for an outpatient work up of what has been reported as a new bladder mass. Belén reports she feels comfortable returning home and states she will transport via private vehicle with a friend. Readmission - Within the Past 30 Days Yes or No: Y - Date of First Admission Date of 1st Admission: 07/27/18 - Date of this Admission Date of Admission: 08/05/18 This admission was: Through ED - Office Visit Since 1st Admission Have you seen your PCP in the office since discharge?: Yes Date of PCP Appointment: 08/03 Silvano tammy Dorsey Had an appointment Been Scheduled?: Yes - Speicalist Appointments Have you seen any other specialist since your 1st Admission?: No - I. Interview patient and/or Family Difficulty reaching your doctor or getting an office appt?: No Have you had trouble purchasing/ or taking medication?: No Describe your typical meals since you have been home: Nausea and vomitting Did you feel ready for discharge when you left the last time: Yes Reason there were no orders at discharge: Patient does not meet home bound criteria; is/was not interested in home based services. Did you call your physician beore you came to the ED?: No How do you think you became sick enough to come back?: Only took one nausea pill; reports Zophran was inaffective. Reports she may need supplements to keep her labs balanced. Belén reports she usually waits too long to present to the ER and came a day sooner this time. Can tell when her labs are off (Mag and K) due to feeling loopy. Reports plain water makes her nauseous. She does have a mass of undetermined origin in her bladder; this is the reason for her outpatient follow up with Dr. Wiggins for continued work up. - If the patient had a VNA ordered Did the patient have a VNA order?: No - ED visits How many ED visits in the past 12 months: 4 - Assessment for Readmission Summary of readmission circumstances, based upon interviews: Newly discovered bladder mass possibly consistent with bladder cancer. Urology has been consulted, and hopefully patient will be able to get a cystoscopy with biopsy as soon as possible. Bladder cancer does not typically cause such marketed nausea and vomiting if localized. Pelvic ultrasound to assess for ovarian pathology if the extent of the bladder disease does not explain her symptoms. She will continue this process as an outpatient per MD.
[2018-08-06] MEDS: POTASSIUM CHLORIDE 10 MEQ/100 ML BAG 100 MEQ IVPB (12:07)
--- NOTE | 2018-08-06 14:23 | INITIAL_ITS ---
Care Management Initial Assess REASON FOR HOSPITALIZATION:: Bladder Abnormality PAST MEDICAL HISTORY/PAST SURGICAL HISTORY:: Essential hypertension. Hx of bacterial pneumonia. Spinal stenosis. Anterior Fusion Cervical Spine C3-C5 (03/10). Arthroplasty of knee. Breast, Lumpectomy. Colonoscopy-MAC (03/12/18). Hemiarthroplasty (09/07/15). Repair of umbilical hernia. Rotator Cuff Repair. Tenotomy and debridement tendon L shoulder (10/25/17) PREVIOUS FUNCTIONAL STATUS/SOCIAL/FAMILY SUPPORTS:: Belén resides alone in [facility], she states that she has family whom live 4+ hours away. She is independent with ADLs in the community. She cares for her one dog and seven cats at home. She reports she smokes marijuana daily to manage her neuropathy symptoms and chronic pain, she reports she has tried CBD oil in the past without the same effect and is hopeful she can attain medical marijuana approval as she does not want to smoke due to her lungs. She reports a healthy support network of friends but also shares that they enable her to smoke cigarettes as she does not purchase cigarettes on her own. Belén reports her last cigarette was a few weeks ago. CURRENT FUNCTIONAL STATUS:: Belén is lying in bed, open to conversation. She is forthcoming with information and pleasant in interaction. ADVANCE DIRECTIVES:: None on file Has patient been provided with information about the portal?: Yes Did the patient sign up for the portal?: No CODE STATUS:: Full Code INSURANCE COVERAGE / FINANCIAL ISSUES:: Medicare, [employer] CURRENT HOME/COMMUNITY SERVICES/EQUIPMENT:: Belén attends outpatient PT with Michael Avila Ziggy weekly. She reports a cane and grab bars in the home setting. PRIMARY CARE PHYSICIAN:: Mary Dorsey; Belén reports Dr. Dorsey is only able to see her on Tuesdays so she does see other providers within the [facility] practice. POTENTIAL DISCHARGE NEEDS:: Follow up appointment with PCP. Resume outpatient PT with Michael Avila in [facility], follow up outpatient appointment with Dr. Wiggins for bladder mass. PATIENT/FAMILY EDUCATION NEEDS:: Review discharge instructions, discuss Ask Me Three. ANTICIPATED BARRIERS TO DISCHARGE:: None identified at this time. TRANSPORTATION:: Belén reports she will transport via private vehicle with a friend. PLAN:: Belén will return home with continued outpatient PT through Michael Avila in [facility]. She will follow up with her PCP and Dr. Wiggins for an outpatient work up of what has been reported as a new bladder mass. Belén reports she feels comfortable returning home and states she will transport via private vehicle with a friend. Readmission - Within the Past 30 Days Yes or No: Y - Date of First Admission Date of 1st Admission: 07/27/18 - Date of this Admission Date of Admission: 08/05/18 This admission was: Through ED - Office Visit Since 1st Admission Have you seen your PCP in the office since discharge?: Yes Date of PCP Appointment: 08/03 Silvano tammy Dorsey Had an appointment Been Scheduled?: Yes - Speicalist Appointments Have you seen any other specialist since your 1st Admission?: No - I. Interview patient and/or Family Difficulty reaching your doctor or getting an office appt?: No Have you had trouble purchasing/ or taking medication?: No Describe your typical meals since you have been home: Nausea and vomitting Did you feel ready for discharge when you left the last time: Yes Reason there were no orders at discharge: Patient does not meet home bound criteria; is/was not interested in home based services. Did you call your physician beore you came to the ED?: No How do you think you became sick enough to come back?: Only took one nausea pill ; reports Zophran was inaffective. Reports she may need supplements to keep her labs balanced. Belén reports she usually waits too long to present to the ER and came a day sooner this time. Can tell when her labs are off (Mag and K) due to feeling loopy. Reports plain water makes her nauseous. She does have a mass of undetermined origin in her bladder; this is the reason for her outpatient follow up with Dr. Wiggins for continued work up. - If the patient had a VNA ordered Did the patient have a VNA order?: No - ED visits How many ED visits in the past 12 months: 4 - Assessment for Readmission Summary of readmission circumstances, based upon interviews: Newly discovered bladder mass possibly consistent with bladder cancer. Urology has been consulted, and hopefully patient will be able to get a cystoscopy with biopsy as soon as possible. Bladder cancer does not typically cause such marketed nausea and vomiting if localized. Pelvic ultrasound to assess for ovarian pathology if the extent of the bladder disease does not explain her symptoms. She will continue this process as an outpatient per MD.
[2018-08-06 15:53] VITALS: BP 148/53; PULSE 58; RESP 17; TEMP 37.2; O2SAT 95
--- NOTE | 2018-08-06 16:17 | CHAPLAIN ---
Belén and I remembered each other from her admission a couple of weeks ago. She lives alone and is comforted by her dog, and seven cats. Belén said she also has friends who are supportive. I offered my support as well, and will continue to visit.
[2018-08-06] MEDS: Pantoprazole 40 MG VIAL IVP (17:35)
[2018-08-06] MEDS: Normal Saline Flush 10 ML SYR IVP ×2 (17:35→19:37)
--- NOTE | 2018-08-06 19:07 | W.PM.PROGNOT ---
Date of Service Date of service: 08/06/18 Time of Service: 19:07 Assessment and Plan (1) Bladder mass: Current visit: Yes Status: Acute Newly discovered bladder mass possibly consistent with bladder cancer. Urology has been consulted and given aspirin and NSAID use plans to postpone cystoscopy and biopsy until later this week or next. We plan to do this as an outpatient (2) Hypokalemia: Current visit: No Status: Acute Replacing orally. Follow in the morning. Magnesium has normalized. (3) Nausea & vomiting: Current visit: Yes Status: Acute Improved. Continue supportive care with Compazine as needed. (4) DVT prophylaxis: Current visit: No Status: Acute Stopped heparin today with pending surgery and patient moving more. (5) Discharge planning issues: Current visit: No Status: Acute Full code. Plan to go home tomorrow. Subjective Patient reports: no new complaints, feels better and tolerating a regular diet; denies vomiting and fever Interval history since last seen: Feeling significantly better this morning, was eating some food and drinking fluids. During the day however she continued to feel very run down and weak generally. She was a little hesitant to go home at the end the day due to this. Exam Narrative Exam Narrative: General: Alert and oriented x3, pleasant and conversant, no acute distress. Head: Conjunctive are clear with moist mucous membranes Lungs: Clear to auscultation bilaterally with normal effort Cardiovascular: Regular rate and rhythm with no murmurs gallops or rubs. Pedal and radial pulses 2+ bilaterally. Abdomen: Active bowel sounds, soft, nondistended. Mildly tender in the suprapubic to right lower abdomen. improved. No masses appreciated. No organomegaly. No guarding or rebound Extremities: No gross deformity, no joint redness or swelling Skin: No rashes or suspicious skin lesions Objective Objective Clinical Data: Abnormal lab results 08/06/18 Range/Units 06:20 Potassium 3.1 L (3.5-5.1) mmol/L Vital Signs Temperature 37.2 C 08/06/18 15:53 Temperature Source Tympanic 08/06/18 15:53 Pulse 58 L 08/06/18 15:53 Pulse Rhythm Regular 08/06/18 16:01 Respiratory Rate 17 08/06/18 15:53 Respiratory Effort Non-Labored 08/06/18 16:01 Respiratory Depth Normal 08/06/18 16:01 Respiratory Pattern Normal 08/06/18 16:01 Blood Pressure 148/53 H 08/06/18 15:53 Blood Pressure Position Supine 08/05/18 10:53 Pulse Oximetry 95 08/06/18 15:53 Oxygen Delivery Method Room Air 08/06/18 15:53 Oxygen Flow Rate 0 08/06/18 15:53 Pain Level 2 08/05/18 16:48 Intake & Output 08/05/18 08/06/18 08/06/18 23:59 11:59 23:59 Intake Total 3438 / 3438 1250 / 1250 363 / 363 Output Total 500 / 500 850 / 850 Balance 2938 / 2938 400 / 400 363 / 363 Weight 57.2 kg 58.5 kg Intake: IV 2718 / 2718 1000 / 1000 123 / 123 Oral 720 / 720 250 / 250 240 / 240 Output: Urine 500 / 500 850 / 850 Other: Urine Color Yellow Yellow Urine Appearance Clear Clear Clear Urine Odor Normal Stool Size Moderate Stool Characteristics Soft Emesis Description Mucous Voiding Methods Bedside Commode Bedside Commode Laboratory Results WBC 9.11 k/cumm (4.4-10.8) 08/05/18 11:25 RBC 4.05 m/cumm (4.00-5.20) 08/05/18 11:25 Hgb 12.3 g/dL (12.0-15.5) 08/05/18 11:25 Hct 36.9 % (36.0-46.0) 08/05/18 11:25 MCV 91.1 fL (80-95) 08/05/18 11:25 MCH 30.4 pg (27.0-33.0) 08/05/18 11:25 MCHC 33.3 g/dL (32.0-36.0) 08/05/18 11:25 RDW 12.7 % (11.7-14.6) 08/05/18 11:25 Plt Count 211 x1000/uL (130-400) 08/05/18 11:25 MPV 10.9 fL (8.0-11.0) 08/05/18 11:25 Immature Gran % 0.1 08/05/18 11:25 Neutrophils % 82.0 08/05/18 11:25 Lymphocytes % 12.4 08/05/18 11:25 Monocytes % 4.9 08/05/18 11:25 Eosinophils % 0.4 08/05/18 11:25 Basophils % 0.2 08/05/18 11:25 Absolute Neutrophils 7.46 k/cumm (1.2-6.7) H 08/05/18 11:25 Absolute Lymphocytes 1.13 k/cumm (1.2-3.4) L 08/05/18 11:25 Absolute Monocytes 0.45 k/cumm (0.11-0.7) 08/05/18 11:25 Absolute Eosinophils 0.04 k/cumm (0.0-0.7) 08/05/18 11:25 Absolute Basophils 0.02 k/cumm (0.0-0.2) 08/05/18 11:25 Sodium 142 mmol/L (136-145) 08/06/18 06:20 Potassium 3.1 mmol/L (3.5-5.1) L 08/06/18 06:20 Chloride 106 mmol/L (98-107) 08/06/18 06:20 Carbon Dioxide 25.2 mmol/L (21.0-32.0) 08/06/18 06:20 Anion Gap 10.8 mmol/L (3-11) 08/06/18 06:20 BUN 10 mg/dL (7-18) 08/06/18 06:20 Creatinine 0.80 mg/dL (0.55-1.02) 08/06/18 06:20 Estimated GFR/1.73 m2 >= 60.00 (mL/min/1.73m2) 08/06/18 06:20 Glucose 94 mg/dL (70-100) 08/06/18 06:20 Calcium 8.5 mg/dL (8.5-10.1) 08/06/18 06:20 Magnesium 1.4 mg/dL (1.8-2.4) L 08/05/18 16:50 Total Bilirubin 0.6 mg/dL (0.2-1.0) 08/05/18 11:25 AST 23 U/L (15-37) 08/05/18 11:25 ALT 28 U/L (12-78) 08/05/18 11:25 Alkaline Phosphatase 98 U/L (46-116) 08/05/18 11:25 Troponin I < 0.02 ng/mL (0.00-0.06) 08/05/18 11:25 Total Protein 7.1 g/dL (6.4-8.2) 08/05/18 11:25 Albumin 3.2 g/dL (3.4-5.0) L 08/05/18 11:25 Urine Color Yellow (Yellow) 08/05/18 11:06 Urine Clarity Clear 08/05/18 11:06 Urine pH 7.5 (5-8) 08/05/18 11:06 Ur Specific [place] 1.015 (1.005-1.025) 08/05/18 11:06 Urine Protein 30 mg/dL (Negative) H 08/05/18 11:06 Urine Ketones Negative mg/dL (Negative) 08/05/18 11:06 Urine Blood Trace-intact (Negative) H 08/05/18 11:06 Urine Nitrite Negative (Negative) 08/05/18 11:06 Urine Bilirubin Negative (Negative) 08/05/18 11:06 Urine Urobilinogen 0.2 EU/dL (Up TO 0.2) 08/05/18 11:06 Ur Leukocyte Esterase Negative (Negative) 08/05/18 11:06 Urine RBC 5-10 (0-2) H 08/05/18 11:06 Urine WBC 0-2 HPF (0-5) 08/05/18 11:06 Ur Epithelial Cells Few HPF (Negative) 08/05/18 11:06 Urine Crystals Moderate amorphous HPF (Negative) 08/05/18 11:06 Urine Bacteria Few HPF (Negative) 08/05/18 11:06 Urine Casts Negative LPF (Negative) 08/05/18 11:06 Urine Mucus Trace (Negative) 08/05/18 11:06 Urine Other Negative (Negative) 08/05/18 11:06 Ur Culture Indicated? No 08/05/18 11:06 Urine Glucose Negative mg/dL (Negative) 08/05/18 11:06
[2018-08-06] MEDS: amLODIPine 5 MG TAB PO (19:38)
[2018-08-06] MEDS: Acetaminophen 650 MG SUPP PR (19:38)
[2018-08-06] MEDS: Atenolol 50 MG TAB 75 MG PO (19:38)
[2018-08-06 20:24] VITALS: O2SAT 95
[2018-08-06 23:41] VITALS: BP 152/79; PULSE 68; RESP 18; TEMP 37.1; O2SAT 98
[2018-08-07 07:13] LABS: Anion Gap 8.1 mmol/L (3-11); BUN 8 mg/dL (7-18); CO2 27.9 mmol/L (21.0-32.0); CREATININE 0.68 mg/dL (0.55-1.02); Calcium 8.4 mg/dL (8.5-10.1); Chloride 104 mmol/L (98-107); Glucose 100 mg/dL (70-100); Magnesium 1.6 mg/dL (1.8-2.4); Sodium 140 mmol/L (136-145)
[2018-08-07 07:17] LABS: Potassium 2.9 mmol/L (3.5-5.1)
[2018-08-07 07:25] VITALS: BP 136/70; PULSE 75; RESP 18; TEMP 36.8; O2SAT 98
[2018-08-07] MEDS: Lactated Ringers 1,000 ML 120 ML IV (07:26)
[2018-08-07] MEDS: Gabapentin 300 MG CAP PO ×2 (08:03→13:15)
[2018-08-07] MEDS: MAGNESIUM SULFATE 1 GM/100 ML BAG IVPB (09:28)
[2018-08-07] MEDS: Potassium Chloride 20 MEQ TABCR 40 MEQ PO ×2 (09:28→14:36)
[2018-08-07 10:15] VITALS: O2SAT 93
--- NOTE | 2018-08-07 11:51 | CMDISCH_ITS ---
LACE Index Scoring Tool - Questions: Length of Stay (in days): 3 Acuity (Admit via E.D.?): Yes Comorbidities: Diabetes w/o Complication, Any Tumor E.D. Visits: 4 - Answers: Total Score: 13 Risk of Readmission: High Risk Care Management Discharge Reason for Hospitalization: Bladder Abnormality Discharge Plan: Belén will return home with continued outpatient PT through [facility] in [facility]. She will follow up with her PCP and Dr. Wiggins for an outpatient work up of what has been reported as a new bladder mass. Belén reports she feels comfortable returning home and states she will transport via private vehicle with a friend. Patient/Family Education Needs: Review discharge instructions, discuss Ask Me Three. Services Needed at Discharge: Home Delivered Meals (Resumption of MOW), Outpatient Therapy (Physical therapy with [facility] )
--- NOTE | 2018-08-07 15:31 | W.PM.DS.N ---
Date of service: 08/07/18 Time of Service: 15:32 DS: Diagnosis Discharge Diagnosis (1) Bladder mass: Status: Acute (2) Hypokalemia: Status: Acute (3) Nausea & vomiting: Status: Acute Discharge Plan Disposition Patient Disposition: HOME Condition: Improving Discharge Details Reason For Visit: BLADDER ABNORMALITY Admit Date/Time: 08/05/18 15:39 Admit Provider: Robert Ott Attending Provider: Robert Ott Primary Care Provider: Mary Dorsey Hospital Course Hospital Course: Belén Velasquez is a 68-year-old female with a history of spinal stenosis and peripheral neuropathy, and intermittent smoker, who presented to the ED on 08/05/18 with recurrence of nausea, vomiting, and weakness. She had recently been admitted with the same constellation of symptoms. At that time she was treated for a UTI, given IV fluids and electrolyte replacement and discharged home in improved condition. She felt better until 2 days prior to this admission when she began to have nausea and vomiting again. She continued to have frequent urination, but no dysuria or hematuria. In the ED, she had reassuring labs, however, she reported mild abdominal tenderness and went on to have a CT scan. The CT scan did not show evidence of an acute process but did show new findings of concerning abnormalities in her bladder suggestive of potential malignancy. She went on to have a Urology Consultation who recommends a cystoscopy with transurethral resection. For this procedure she needs to be off aspirin and NSAIDS for 3-5 days, therefore, the procedure has been scheduled for 09/06/18 as an outpatient. Today, she feels better. She is not nauseated and is no longer vomiting. She was noted to have electrolyte abnormalities and received magnesium and potassium supplementation. She will be discharged home with potassium, she already has magnesium at home. She is encouraged to stay hydrated. She will have follow-up labs to reassess her magnesium and potassium. She will follow-up with her primary care provider as scheduled. This case discussed with Dr. Swain who is in agreement. Home Meds and New Rx's Prescriptions: New prochlorperazine maleate [Compazine] 5 mg tablet 5 mg PO Q6H PRN PRN (Reason: nausea and vomiting) Qty: 20 RF: 0 potassium chloride 10 mEq capsule, extended release 20 meq PO DAILY 14 Days Qty: 14 RF: 0 Continue calcium carbonate-vitamin D3 [Calcium 500 + D] 1 EACH tablet 1 ea PO DAILY RF: 0 folic acid 1 MG tablet 800 mcg PO DAILY RF: 0 cetirizine [Zyrtec] 10 MG capsule 10 mg PO PRN RF: 0 selenomethionine 200 MCG tablet 200 mcg PO DAILY RF: 0 multivitamin [Daily Multi-Vitamin] 1 EACH tablet 1 ea PO DAILY RF: 0 amlodipine 5 MG tablet 5 mg PO HS Qty: 90 RF: 2 pravastatin 40 MG tablet 40 mg PO DAILY Qty: 90 RF: 3 gabapentin 300 MG capsule 300 mg PO TID Qty: 450 RF: 3 atenolol 50 mg tablet 75 mg PO HS Qty: 135 RF: 3 ranitidine HCl 150 mg tablet 150 mg PO BID Qty: 180 RF: 3 magnesium oxide 400 mg (241.3 mg magnesium) Tablet 400 mg PO DAILY@1000 Qty: 14 RF: 0 Discontinued aspirin 81 MG tablet,chewable 81 mg PO DAILY RF: 0 ibuprofen 600 MG tablet 600 mg PO BID RF: 0 ondansetron [Zofran ODT] 4 mg tablet,disintegrating 4 mg PO TID PRN (Reason: nausea and vomiting) Qty: 10 RF: 0 Discharge Instructions Instructions: Hypokalemia (DC), Transurethral Resection of Bladder Tumors (DC), Hypomagnesemia (DC) Additional Instructions: Do not take Aspirin or NSAIDS (including ibuprofen) for one week prior to your procedure with Dr. Wiggins. Your procedure is scheduled for September 06, 2018. Day surgery will be in touch with you prior to this date. You have a new prescription Potassium and Compazine for nausea and vomiting. Stay hydrated. You will need to have labs drawn on Monday08/10/18 to reassess your potassium and magnesium. Follow up with your PCP as scheduled. Take care! Stand Alone Forms: Nursing Discharge Form Referrals: Davian Wiggins MD [ [facility] STAFF PHYSICIAN] - 09/06/18 1:00 pm (cystoscopy) Mary Dorsey MD [Primary Care Provider] - 08/15/18 12:30 pm Activity:: Activity as Tolerated Equipment/Supplies:: No Equipment Needed Diet:: Low Sodium Discharge Orders Discharge Orders: Discharge Order (Routine); Ordered 08/07/18 Ordered By: Lynda Dinh Other Ambulatory Orders: Potassium (Routine) Timeframe: 20180810 Location: Determined by Patient Ordered By: Lynda Dinh Magnesium (Routine) Timeframe: 20180810 Location: Determined by Patient Ordered By: Lynda Dinh Exam Narrative Exam Narrative: General: Alert and oriented x3, pleasant and cooperative, no acute distress. Head: Normocephalic, atraumatic, moist mucous membranes. Lungs: Clear to auscultation bilaterally with normal effort Cardiovascular: Regular rate and rhythm with no murmurs, gallops or rubs. Abdomen: Normoactive bowel sounds Abdomen soft, nondistended. Mildly tender on palpation over suprapubic area. No masses appreciated. Extremities: No clubbing, cyanosis or edema. Peripheral pulses are palpable. Skin: Pale. No rashes or suspicious lesions. DS: Data Vitals/I&O Vitals and I&O: Vital Signs Temperature 36.8 C 08/07/18 07:25 Temperature Source Tympanic 08/07/18 07:25 Pulse 75 08/07/18 07:25 Pulse Rhythm Regular 08/07/18 08:00 Respiratory Rate 18 08/07/18 07:25 Respiratory Effort Non-Labored 08/07/18 08:00 Respiratory Depth Normal 08/07/18 08:00 Respiratory Pattern Normal 08/07/18 08:00 Blood Pressure 136/70 08/07/18 07:25 Blood Pressure Position Supine 08/05/18 10:53 Pulse Oximetry 93 L 08/07/18 10:15 Oxygen Delivery Method Room Air 08/07/18 10:15 Oxygen Flow Rate 0 08/07/18 10:15 Pain Level 0 08/07/18 07:25 Intake & Output 08/06/18 08/07/18 08/07/18 23:59 11:59 23:59 Intake Total 1363 / 1363 1446 / 1446 Output Total 2950 / 2950 Balance 1363 / 1363 -1504 / -1504 Weight 58.3 kg Intake: IV 1123 / 1123 956 / 956 Oral 240 / 240 490 / 490 Output: Urine 2950 / 2950 Other: Urine Color Yellow Yellow Urine Appearance Clear Clear Urine Odor None None Comment pt passed stool in bedside commode Voiding Methods Bedside Commode Completed studies during hospitalization [Text1]: 08/05/18: CT ABDOMEN AND PELVIS: CT scan of the abdomen and pelvis was performed following the uneventful administration of intravenous contrast material. No priors. Mild dependent atelectatic changes are seen in the lung bases. The liver, gallbladder, bile ducts, spleen and pancreas are unremarkable. There are again seen bilateral adrenal nodules which appear stable compared to the CT scan of the chest from 05/29/18. The kidneys show normal and symmetric enhancement. No evidence of a solid renal mass or obstruction is seen. There is a nonobstructing 5 mm stone in the mid pole of the right kidney. Hypodensities are seen within the renal cortices likely reflecting cysts but are too small for further characterization. The urinary bladder is intact. There are at least 3 nodular densities along the posterior left aspect of the urinary bladder wall. Neoplasm cannot be excluded. Noncalcified bladder stones may also be considered. There are several nodular densities in the uterus, the largest measuring 3.7 cm likely reflecting uterine fibroid. There is atherosclerosis of the abdominal aorta. No aneurysmal dilatation or dissection is present. There is a small amount of pelvic and abdominal free fluid. No pneumoperitoneum is seen. The bowel shows no definite evidence of obstruction or inflammation. IMPRESSION: 1. Small amount of pelvic free fluid which is indeterminate 2. Nodules along the posterior and left wall of the urinary bladder. Malignancy cannot be excluded. Urology consult is recommended. 3. Right nephrolithiasis. No evidence of obstructive uropathy. CHEST X-RAY: Portable AP view. Comparison 07/25/18 Heart size and pulmonary vasculature are within normal limits. The lungs show no evidence of congestive heart failure or pneumonia. No effusions or pneumothoraces are identified. Post surgical changes are again seen of a left shoulder replacement. An orthopaedic anchor is seen in the right humeral head. IMPRESSION: No acute pulmonary process Labs on day of discharge: Labs from last 24 hours 08/07/18 06:25 Sodium 140 Potassium 2.9 L* Chloride 104 Carbon Dioxide 27.9 Anion Gap 8.1 BUN 8 Creatinine 0.68 Estimated GFR/1.73 m2 >= 60.00 Glucose 100 Calcium 8.4 L Magnesium 1.6 L
== END 2018-08-07 17:11 | disposition home or self-care (01) ==
LOC: ER 16:28 → MS 16:46
PROVIDERS: Emergency Medicine; Nurse Practitioner Family; Admitting Provider Family Medicine; Emergency Provider Student in an Organized Health Care Education/Training Program; PCP Internal Medicine; Visit Provider Family Medicine
DX: R93.41 Abnormal radiologic findings on diagnostic imaging of renal pelvis, ureter, or bladder (principal); R11.2 Nausea with vomiting, unspecified; R10.817 Generalized abdominal tenderness; E83.42 Hypomagnesemia; E87.6 Hypokalemia; I10 Essential (primary) hypertension; R05 Cough
CPT/HCPCS: 36415; 80048; 80053; 93005; 99212; 99219; 99232; 99239; 99252; 99285; J1650; 71045; 74177; 81003; 81015; 83735; 84484; 85025; 93010; 99217; 99284; G0378; J2405; J3475; J3480; J3490

== ENCOUNTER 2018-08-14 09:40 | Outpatient (CLI) | payer MEDICARE, OTHER, SELFPAY ==
[2018-08-14 10:21] LABS: Absolute Basophil Count 0.03 k/cumm (0.0-0.2); Absolute Eosinophil Count 0.45 k/cumm (0.0-0.7); Absolute Lymphocyte Count 1.76 k/cumm (1.2-3.4); Absolute Monocyte Count 0.52 k/cumm (0.11-0.7); Absolute Neutrophil Count 5.89 k/cumm (1.2-6.7); Basophils % 0.3; Eosinophils % 5.2; HCT 38.6 % (36.0-46.0); HGB 12.4 g/dL (12.0-15.5); Lymphocytes % 20.3; Mean Corp. HGB Concentration 32.1 g/dL (32.0-36.0); Mean Corpuscular Hemoglobin 30.3 pg (27.0-33.0); Mean Corpuscular Volume 94.4 fL (80-95); Mean Platelet Volume 11.1 fL (8.0-11.0); Neutrophils % 68.2; Platelet Count 243 x1000/uL (130-400); RBC 4.09 m/cumm (4.00-5.20); RBC Distribution Width 12.9 % (11.7-14.6); White Blood Cell Count 8.65 k/cumm (4.4-10.8)
[2018-08-14 10:55] LABS: Magnesium 1.7 mg/dL (1.8-2.4); Potassium 4.4 mmol/L (3.5-5.1)
== END 2018-08-14 10:00 ==
PROVIDERS: PCP Internal Medicine; Visit Provider Nurse Practitioner
DX: E87.6 Hypokalemia (principal); E83.42 Hypomagnesemia
CPT/HCPCS: 36415; 83735; 84132; 85025

== ENCOUNTER 2018-08-27 12:50 | Outpatient (CLI) | payer MEDICARE, OTHER, SELFPAY ==
[2018-08-27 14:07] LABS: Magnesium 1.5 mg/dL (1.8-2.4)
== END 2018-08-27 13:10 ==
PROVIDERS: PCP Internal Medicine; Visit Provider Internal Medicine
DX: E87.6 Hypokalemia (principal)
CPT/HCPCS: 36415; 83735; 84132

== ENCOUNTER → 2018-08-30 09:36 | Outpatient (BNVA) | payer MEDICARE, OTHER, SELFPAY | PROVIDERS: PCP Internal Medicine; Visit Provider Psychiatry & Neurology Neurology | DX: R20.2 Paresthesia of skin (principal); G95.9 Disease of spinal cord, unspecified; I10 Essential (primary) hypertension | CPT/HCPCS: 99205; 99215 ==

== ENCOUNTER 2018-09-03 10:39 | Outpatient (CLI) | payer MEDICARE, OTHER, SELFPAY ==
[2018-09-03 13:01] LABS: Vitamin D 25 Total 37.1 ng/ml (30-100)
[2018-09-03 13:04] LABS: Magnesium 1.6 mg/dL (1.8-2.4); Potassium 3.2 mmol/L (3.5-5.1)
[2018-09-03 13:36] LABS: Vitamin B12 > 2000 pg/mL (193-986)
== END 2018-09-03 10:59 ==
PROVIDERS: PCP Internal Medicine; Visit Provider Psychiatry & Neurology Neurology
DX: M85.80 Other specified disorders of bone density and structure, unspecified site (principal); G62.9 Polyneuropathy, unspecified; E87.6 Hypokalemia
CPT/HCPCS: 36415; 82306; 82607; 83735; 84132

== ENCOUNTER 2018-09-06 11:50 | Day surgery (SDC) | payer MEDICARE, OTHER, SELFPAY ==
[2018-09-06] VITALS (7 sets, daily range): BP systolic 113–140; BP diastolic 56–76; PULSE 63–78; RESP 11–16; TEMP 36.3–36.6; O2SAT 95–99
--- NOTE | 2018-09-06 12:14 | W.PM.HP.N ---
Date of service: 09/06/18 Time of Service: 12:14 Assessment and Plan (1) Bladder mass: Current visit: No Status: Acute For cystoscopy with transurethral resection. Her ultimate treatment will depend on her surgical pathology. History of Present Illness Chief Complaint: Bladder mass Narrative: This is a 68-year-old woman who was seen during a recent hospitalization. She was admitted with nausea and vomiting. She had a finding of electrolyte abnormalities. A CT of the abdomen and pelvis was obtained and multiple bladder masses were identified. I was asked to consider a cystoscopy and biopsy while she was hospitalized, but she was still on her anticoagulants. She also had concerns regarding an acute respiratory infection at the time of her initial presentation. It was felt that the safest approach would be to allow any respiratory infection to resolve and to schedule her for the procedure 4-8 weeks later. She comes in today for cystoscopy with possible transurethral resection of bladder tumors. She will has been a smoker in the past. She quit about 5 years ago. She has not seen any gross hematuria or clots. Review of Systems Constitutional Denies chills and Denies fever(s) Eyes Denies change in vision ENT Denies dysphagia and Denies sore throat Cardiovascular Denies chest pain, Denies syncope and Denies palpitations Respiratory Denies cough, Denies hemoptysis and Denies excessive phlegm production Gastrointestinal Denies dysphagia, Denies nausea and Denies vomiting Genitourinary Reports system reviewed and no additional complaints, except as docu Musculoskeletal Reports back pain and Reports arthralgias Neurologic Denies confusion and Denies syncope Psychiatric Denies confusion Endocrine Denies palpitations Hematologic/Lymphatic Denies easy bleeding PFSH Cervical myelopathy (Chronic) Spinal stenosis, other region (Acute 12/14/11) Spinal stenosis, lumbar region without neurogenic claudication (Acute 12/14/11) Peripheral neuropathy (Acute 07/01/14) Osteopenia (Acute 12/14/11) Osteoarthritis of spine with radiculopathy, cervical region (Acute 09/05/11) Essential hypertension (Acute 02/26/13) Depression (Acute 07/01/14) Cough (Acute) Hyperlipidemia (Acute) Nausea and vomiting (Acute) Essential hypertension (Resolved) Neuropathy (Resolved) Spinal stenosis (Resolved) Hx of bacterial pneumonia Social History household members: none current occupational status: retired frequency: 3-4 times per week Smoking/Tobacco Use Status: Current-Occasional alcohol intake: never substance use type: marijuana seatbelt use: always 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 Meds Home Medications Medication Instructions Recorded Confirmed Type calcium carbonate-vitamin D3 1 ea PO DAILY 09/06/16 09/06/18 History [Calcium 500 + D] Zyrtec 10 mg PO PRN 01/19/17 09/06/18 History folic acid 800 mcg PO DAILY tab-cap 01/19/17 09/06/18 History selenomethionine 200 mcg PO DAILY 06/21/17 09/06/18 History multivitamin [Daily Multi-Vitamin] 1 ea PO DAILY 09/26/17 09/06/18 History pravastatin 40 mg PO DAILY #90 tab-cap 04/24/18 09/06/18 Rx atenolol 50 mg tablet 75 mg PO HS #135 tab 07/06/18 09/06/18 Rx ranitidine 150 mg tablet 150 mg PO BID #180 tab-cap 07/06/18 09/06/18 Rx prochlorperazine maleate 5 mg PO Q6H PRN PRN #20 tab 08/07/18 09/06/18 Rx [Compazine] amlodipine 5 mg PO HS 09/04/18 09/06/18 History gabapentin 300 mg PO .NOON 09/04/18 09/06/18 History gabapentin 600 mg PO .AM,HS 09/04/18 09/06/18 History magnesium 400 mg (as magnesium 400 mg PO BID #180 tab 09/04/18 09/06/18 Rx oxide) tablet potassium chloride ER 10 mEq 10 meq PO DAILY #90 cap 09/04/18 09/06/18 Rx capsule,extended release aspirin [Aspir-Low] 81 mg PO DAILY 09/06/18 09/06/18 History naproxen sodium 220 mg PO PRN 09/06/18 History Allergies Allergy/AdvReac Type Severity Reaction Status Date / Time codeine AdvReac Intermediate Nausea Verified 09/04/18 09:23 hydrochlorothiazide AdvReac Mild hypomagnese Verified 09/04/18 09:23 pop duloxetine AdvReac Other (See Verified 09/04/18 09:23 Comment) narcotics AdvReac Intermediate Nausea, Uncoded 09/04/18 09:23 vomiting Exam Const General: comfortable and no acute distress Orientation: alert, awake and oriented x3 Neck Neck: supple and nontender Resp Effort & Inspection: normal respiratory effort and no use of accessory muscles Auscultation: lung sounds not diminished, no rales and no wheezes Cardio Rate: regular rate Rhythm: regular rhythm GI Inspection: normal to inspection Palpation: soft, no masses and nontender Skin General skin exam: pallor Neuro General: alert, awake and oriented x3
--- NOTE | 2018-09-06 12:22 | HPE_ITS ---
Date of service: 09/06/18 Time of Service: 12:14 Assessment and Plan (1) Bladder mass: Current visit: No Status: Acute For cystoscopy with transurethral resection. Her ultimate treatment will depend on her surgical pathology. History of Present Illness Chief Complaint: Bladder mass Narrative: This is a 68-year-old woman who was seen during a recent hospitalization. She was admitted with nausea and vomiting. She had a finding of electrolyte abnormalities. A CT of the abdomen and pelvis was obtained and multiple bladder masses were identified. I was asked to consider a cystoscopy and biopsy while she was hospitalized, but she was still on her anticoagulants. She also had concerns regarding an acute respiratory infection at the time of her initial presentation. It was felt that the safest approach would be to allow any respiratory infection to resolve and to schedule her for the procedure 4-8 weeks later. She comes in today for cystoscopy with possible transurethral resection of bladder tumors. She will has been a smoker in the past. She quit about 5 years ago. She has not seen any gross hematuria or clots. Review of Systems Constitutional Denies chills and Denies fever(s) Eyes Denies change in vision ENT Denies dysphagia and Denies sore throat Cardiovascular Denies chest pain, Denies syncope and Denies palpitations Respiratory Denies cough, Denies hemoptysis and Denies excessive phlegm production Gastrointestinal Denies dysphagia, Denies nausea and Denies vomiting Genitourinary Reports system reviewed and no additional complaints, except as docu Musculoskeletal Reports back pain and Reports arthralgias Neurologic Denies confusion and Denies syncope Psychiatric Denies confusion Endocrine Denies palpitations Hematologic/Lymphatic Denies easy bleeding PFSH Cervical myelopathy (Chronic) Spinal stenosis, other region (Acute 12/14/11) Spinal stenosis, lumbar region without neurogenic claudication (Acute 12/14/11) Peripheral neuropathy (Acute 07/01/14) Osteopenia (Acute 12/14/11) Osteoarthritis of spine with radiculopathy, cervical region (Acute 09/05/11) Essential hypertension (Acute 02/26/13) Depression (Acute 07/01/14) Cough (Acute) Hyperlipidemia (Acute) Nausea and vomiting (Acute) Essential hypertension (Resolved) Neuropathy (Resolved) Spinal stenosis (Resolved) Hx of bacterial pneumonia Social History household members: none current occupational status: retired frequency: 3-4 times per week Smoking/Tobacco Use Status: Current-Occasional alcohol intake: never substance use type: marijuana seatbelt use: always 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 Meds Home Medications Medication Instructions Recorded Confirmed Type calcium carbonate-vitamin D3 1 ea PO DAILY 09/06/16 09/06/18 History [Calcium 500 + D] Zyrtec 10 mg PO PRN 01/19/17 09/06/18 History folic acid 800 mcg PO DAILY tab-cap 01/19/17 09/06/18 History selenomethionine 200 mcg PO DAILY 06/21/17 09/06/18 History multivitamin [Daily Multi-Vitamin] 1 ea PO DAILY 09/26/17 09/06/18 History pravastatin 40 mg PO DAILY #90 tab-cap 04/24/18 09/06/18 Rx atenolol 50 mg tablet 75 mg PO HS #135 tab 07/06/18 09/06/18 Rx ranitidine 150 mg tablet 150 mg PO BID #180 tab-cap 07/06/18 09/06/18 Rx prochlorperazine maleate 5 mg PO Q6H PRN PRN #20 tab 08/07/18 09/06/18 Rx [Compazine] amlodipine 5 mg PO HS 09/04/18 09/06/18 History gabapentin 300 mg PO .NOON 09/04/18 09/06/18 History gabapentin 600 mg PO .AM,HS 09/04/18 09/06/18 History magnesium 400 mg (as magnesium 400 mg PO BID #180 tab 09/04/18 09/06/18 Rx oxide) tablet potassium chloride ER 10 mEq 10 meq PO DAILY #90 cap 09/04/18 09/06/18 Rx capsule,extended release aspirin [Aspir-Low] 81 mg PO DAILY 09/06/18 09/06/18 History naproxen sodium 220 mg PO PRN 09/06/18 History Allergies Allergy/AdvReac Type Severity Reaction Status Date / Time codeine AdvReac Intermediate Nausea Verified 09/04/18 09:23 hydrochlorothiazide AdvReac Mild hypomagnese Verified 09/04/18 09:23 pop duloxetine AdvReac Other (See Verified 09/04/18 09:23 Comment) narcotics AdvReac Intermediate Nausea, Uncoded 09/04/18 09:23 vomiting Exam Const General: comfortable and no acute distress Orientation: alert, awake and oriented x3 Neck Neck: supple and nontender Resp Effort & Inspection: normal respiratory effort and no use of accessory muscles Auscultation: lung sounds not diminished, no rales and no wheezes Cardio Rate: regular rate Rhythm: regular rhythm GI Inspection: normal to inspection Palpation: soft, no masses and nontender Skin General skin exam: pallor Neuro General: alert, awake and oriented x3
[2018-09-06] MEDS: Lactated Ringers 1,000 ML 80 ML IV (12:43)
[2018-09-06] MEDS: Lidocaine 2% Jelly 6 ML SYR (13:19)
--- NOTE | 2018-09-06 13:35 | BLADDER_PTH ---
PATIENT: Belén Velasquez LOC: [facility] U#:[id number] AGE/SX: 68/F ROOM: RE09/06/[address]: Davian Wiggins MD : [id number] BED: DIS: 09/06/2018 SPEC #: [id number] RECD: 09/06/18 18:07 STATUS: YUMI REQ #: [id number] MELODIE: 09/06/18 13:[address]: Davian Wiggins DEPT: Surgical Specimen RECD BY: Юлия Bland ENTERED: 09/06/18 18:08 SP TYPE: Bladder OTHR DR: Mary Dorsey MD Tissues: 1 - BLADDER CURRETTINGS Procedures: GROSS AND MICRO LEVEL 5 Comments: [id number]
--- NOTE | 2018-09-06 13:42 | W.PM.DSUDISC ---
Discharge Plan Disposition Patient Disposition: HOME Condition: Stable Discharge Details Reason For Visit: bladder tumor Attending Provider: Davian Wiggins Primary Care Provider: Mary Dorsey Home Meds and New Rx's Prescriptions: No Action calcium carbonate-vitamin D3 [Calcium 500 + D] 1 EACH tablet 1 ea PO DAILY RF: 0 folic acid 1 MG tablet 800 mcg PO DAILY RF: 0 Zyrtec 10 MG capsule 10 mg PO PRN RF: 0 selenomethionine 200 MCG tablet 200 mcg PO DAILY RF: 0 multivitamin [Daily Multi-Vitamin] 1 EACH tablet 1 ea PO DAILY RF: 0 pravastatin 40 MG tablet 40 mg PO DAILY Qty: 90 RF: 3 atenolol 50 mg tablet 75 mg PO HS Qty: 135 RF: 3 ranitidine HCl 150 mg tablet 150 mg PO BID Qty: 180 RF: 3 potassium chloride 10 mEq capsule, extended release 10 meq PO DAILY Qty: 90 RF: 0 magnesium oxide 400 mg magnesium tablet 400 mg PO BID Qty: 180 RF: 3 prochlorperazine maleate [Compazine] 5 mg tablet 5 mg PO Q6H PRN PRN (Reason: nausea and vomiting) Qty: 20 RF: 0 gabapentin 300 mg Capsule 300 mg PO .NOON RF: 0 gabapentin 300 mg capsule 600 mg PO .AM,HS RF: 0 amlodipine 5 mg Tablet 5 mg PO HS RF: 0 aspirin [Aspir-Low] 81 mg Tablet,Delayed Release (Dr/Ec) 81 mg PO DAILY RF: 0 naproxen sodium 220 mg Tablet 220 mg PO PRNRF: 0 Discharge Instructions Additional Instructions: OK to restart aspirin and anti-inflamatory meds Hendricks catheter to leg bag/large drainage bag (pt will need instruction) F/U Monday to have catheter removed Will need appt in 1 to 2 weeks to review surgical pathology Stand Alone Forms: DSU Post op Instructions, Freddy Higgins (DSU) Activity:: Activity as Tolerated Diet:: As Tolerated Discharge Orders Discharge Orders: Discharge Order (Routine); Ordered 09/06/18 Ordered By: Davian Wiggins DS: Diagnosis Discharge Diagnosis (1) Bladder mass: Status: Acute
--- NOTE | 2018-09-06 15:41 | ROE_ITS ---
DATE OF OPERATION: September 06, 2018 PREOPERATIVE DIAGNOSIS: Bladder mass. POSTOPERATIVE DIAGNOSIS: Bladder mass with pathology pending. PROCEDURE: Cystoscopy, transurethral resection of bladder tumors. SURGEON: Davian Wiggins M.D. ANESTHESIA: General. COMPLICATIONS: None. ESTIMATED BLOOD LOSS: Minimal. HISTORY: This is a 68-year-old woman who presented to the Emergency Room with nausea and vomiting. She was found to have some metabolic abnormalities. She underwent a CT of the abdomen and pelvis and bladder masses were incidentally found. I was asked to see her during that hospitalization. We did not think it would be rodriguez to proceed wit h a surgical procedure then because she was having a symptomatic upper respiratory tract infection an d was still taking anti-inflammatory medications and aspirin. She was discharged to allow her respir atory infection to clear. She presents now for a scheduled cystoscopy with possible transurethral re section of any visible bladder tumor. OPERATIVE REPORT: The patient was brought to the Operating Room on 09/06/18. After successful induc tion of general anesthesia, she was placed in the dorsal lithotomy position. Her genitalia was prepp ed and draped. A 24 Wallisian resectoscope sheath was passed through the urethra into the bladder. We used a visual ob turator to visualize the bladder mckeon. The right ureteral orifice appeared normal. The entire right side and dome of the bladder appeared n ormal too. Just behind the left ureteral orifice there was a papillary lesion. This lesion measured less than 2 cm in largest dimension. There were multiple similar sized lesions all on that left side extending to the left lateral wall. These appears papillary, with no evidence of nodular tumor formation. The bladder was then drained and we switched over to an Mata resectoscope. We resected all visib le tumor using bipolar cautery. All resected tissue was evacuated and sent to Pathology for permanen t section. It was felt that the depth of the resection was too deep to give the patient a dose of mitomycin-C to day. We ensured hemostasis. We inspected both ureteral orifices and they appeared uninjured. We th en passed an 18 Wallisian Hendricks catheter through the urethra into the bladder. The catheter balloon was inflated with 10 cc of sterile water and the catheter was hooked to gravity drainage. She tolerated this procedure well with no complications. She will return to our office early next we ek to have the catheter removed. Her follow-up recommendations will depend on her surgical pathology . cc: Mary Dorsey M.D.
== END 2018-09-06 15:46 | disposition home or self-care (01) ==
PROVIDERS: PCP Internal Medicine; Visit Provider Urology
PROC: 0TBB8ZZ Excision of Bladder, Via Natural or Artificial Opening Endoscopic (ICD-10-PCS; CPT 52235; principal; 2018-09-06 13:00)
DX: C67.0 Malignant neoplasm of trigone of bladder (principal)
CPT/HCPCS: 52235; 88305; NC; 88307; J0690; J1100; J1885; J2405

== ENCOUNTER → 2018-09-10 08:16 | Outpatient (BNVA) | payer MEDICARE, OTHER, SELFPAY | PROVIDERS: PCP Internal Medicine; Visit Provider Nurse Practitioner Gerontology | DX: N32.89 Other specified disorders of bladder (principal); I10 Essential (primary) hypertension | CPT/HCPCS: 99213 ==

== ENCOUNTER 2018-09-28 11:25 | Outpatient (CLI) | payer MEDICARE, OTHER, SELFPAY ==
[2018-09-28 13:23] LABS: Magnesium 1.8 mg/dL (1.8-2.4); Potassium 4.4 mmol/L (3.5-5.1)
== END 2018-09-28 11:45 ==
PROVIDERS: PCP Internal Medicine; Visit Provider Internal Medicine
DX: E83.42 Hypomagnesemia (principal); E87.6 Hypokalemia; C67.9 Malignant neoplasm of bladder, unspecified; I10 Essential (primary) hypertension
CPT/HCPCS: 36415; 99213; 83735; 84132

== ENCOUNTER 2018-10-05 12:17 | Emergency (ER) | payer MEDICARE, OTHER, SELFPAY ==
[2018-10-05 12:17] VITALS: BP 166/72; PULSE 68; RESP 16; TEMP 36.5; O2SAT 100
--- NOTE | 2018-10-05 12:25 | W.ED.GENAD ---
Discharge Plan Disposition Patient Disposition: HOME Condition: Good Discharge Details Chief Complaint: Abd Prob Clinical Impression: Hypokalemia, Hypomagnesemia, Acute dehydration, Nausea and vomiting Reason For Visit: GENOVEVA Primary Care Provider: Mary Dorsey ED Provider: Walter Chaudhari Home Meds and New Rx's Prescriptions: New prochlorperazine maleate [Compazine] 5 mg tablet 5 mg PO Q12H Qty: 8 RF: 0 No Action calcium carbonate-vitamin D3 [Calcium 500 + D] 1 EACH tablet 1 ea PO DAILY RF: 0 folic acid 1 MG tablet 800 mcg PO DAILY RF: 0 selenomethionine 200 MCG tablet 200 mcg PO DAILY RF: 0 multivitamin [Daily Multi-Vitamin] 1 EACH tablet 1 ea PO DAILY RF: 0 pravastatin 40 MG tablet 40 mg PO DAILY Qty: 90 RF: 3 atenolol 50 mg tablet 75 mg PO HS Qty: 135 RF: 3 ranitidine HCl 150 mg tablet 150 mg PO BID Qty: 180 RF: 3 potassium chloride 10 mEq capsule, extended release 10 meq PO DAILY Qty: 90 RF: 0 magnesium oxide 400 mg magnesium tablet 600 mg PO BID RF: 0 cyanocobalamin (vitamin B-12) [Vitamin B-12] 1,000 mcg Tablet 1,000 mcg PO DAILY RF: 0 pyridoxine (vitamin B6) [Vitamin B-6] 100 mg Tablet 200 mg PO QID RF: 0 gabapentin 300 mg Capsule 300 mg PO .NOON RF: 0 gabapentin 300 mg capsule 600 mg PO .AM,HS RF: 0 amlodipine 5 mg Tablet 5 mg PO HS RF: 0 aspirin [Aspir-Low] 81 mg Tablet,Delayed Release (Dr/Ec) 81 mg PO DAILY RF: 0 naproxen sodium 220 mg Tablet 220 mg PO DAILY RF: 0 Discharge Instructions Instructions: Hypokalemia (ED), Acute Nausea and Vomiting (ED), Hypomagnesemia (ED) Additional Instructions: Please make sure to take her home potassium, and magnesium. Please take the Compazine as directed. Please drink 10-12 cups of water per day. If you notice any worsening of your symptoms, or any new symptoms such as vomiting, diarrhea, fever, chills, shortness of breath, chest pain, numbness, weakness, or fainting , please return immediately to the emergency department for reevaluation. Please follow up with your primary care provider as soon as possible for reassessment and reevaluation. As always, it was a pleasure participating in your medical care today. Referrals: Mary Dorsey MD [Primary Care Provider] - Medical Decision Making This is a 68-year-old female who presents for evaluation of 5 days of vomiting phlegm, no recent bowel movements, generalized abdominal cramping and discomfort, dehydration. She has no red flags of an acutely surgical abdomen on exam, no hematemesis, vital signs are stable and reassuring. Physical exam demonstrates a dehydrated female with mild abdominal tenderness. Because of her age we will get a CT scan to rule out any acute process. Differential is highest for a viral gastroenteritis. EKG 12: 37 Rate 64 sinus rhythm intervals normal. Inverted T wave in V1, V2, and V3. No ST elevations or depressions, no Q waves. Review of previous EKGs from 08/05/18 demonstrate identical findings Laboratory workup has returned and demonstrates a mild hypokalemia and a mild hypomagnesemia. She has a history of chronic hypokalemia, and review of her labs demonstrate that this is certainly not the lowest that she has been. CT scan has returned and demonstrates no evidence of acute process. She does demonstrate a mild white count, however there is no bandemia. I feel that a notable component of this is reactive secondary to her vomiting. Renal function is still excellent. Bicarb level is normal. Troponin and EKG and lipase are benign. Patient was rehydrated, potassium and magnesium were both replaced through oral and IV methods. Patient is feeling much better after the liter of normal saline. She is able to tolerate p.o. well, and is able to actively ambulate around the department well. I did have the case investigator come and assess the patient, make sure that she has the resources that she needs at home. Patient does have both assistance and help as needed. She has her home potassium and magnesium already. I did discuss with the patient potential admission versus discharge, there is shared decision-making process respecting the patient's wishes patient will be discharged home. I discussed red flags which to return as well as a low threshold for return and the patient understands. I have extensively reviewed the treatment plan and discharge instructions with the patient. I have addressed all patient concerns at this time. The patient was made aware of what symptoms to monitor for that would warrant a return to the emergency department. Discussed the plan with the patient, they demonstrate verbal understanding and agreement with our assessment and plan at this time. Diagnosis viral gastroenteritis with hypomagnesemia and hypokalemia. HPI General Date/Time Provider Initiated Documentation: 10/05/18 12:21. HPI Narrative: This is a 60-year-old female with a past medical history of bladder surgery for bladder neoplasm, spinal surgery, and umbilical hernia repair as well as a history of high cholesterol and hypertension who presents today for feelings of malaise. Patient states that she had a big Mac on Monday, and since then she has not been feeling well. She has had no bowel movement for the last 2-3 days, she has had regular flatus though. She has also had multiple episodes of vomiting over the last few days with associated phlegm for the vomiting and not actual vomiting of stomach contents. Patient does admit to mild achiness in her stomach. She denies any severe abdominal pain. Patient denies any other associated complaints of chest pain, shortness of breath, arm neck or shoulder pain, hematemesis, hematochezia, melena or acholic stool. She denies any other complaints at this time. No other modifying factors. Patient has not been eating anything over the last few days, but she has been drinking small amounts. Patient denies any IV or illicit drug use. She does admit to recent surgery not long ago by Dr. Wiggins for removal of bladder lesion. Related Data Home Medications Medication Instructions Recorded Confirmed calcium carbonate-vitamin D3 1 ea PO DAILY 09/06/16 10/05/18 [Calcium 500 + D] folic acid 800 mcg PO DAILY tab-cap 01/19/17 10/05/18 selenomethionine 200 mcg PO DAILY 06/21/17 10/05/18 multivitamin [Daily Multi-Vitamin] 1 ea PO DAILY 09/26/17 10/05/18 pravastatin 40 mg PO DAILY #90 tab-cap 04/24/18 10/05/18 atenolol 50 mg tablet 75 mg PO HS #135 tab 07/06/18 10/05/18 ranitidine 150 mg tablet 150 mg PO BID #180 tab-cap 07/06/18 10/05/18 amlodipine 5 mg PO HS 09/04/18 10/05/18 gabapentin 300 mg PO .NOON 09/04/18 10/05/18 gabapentin 600 mg PO .AM,HS 09/04/18 10/05/18 potassium chloride ER 10 mEq 10 meq PO DAILY #90 cap 09/04/18 10/05/18 capsule,extended release aspirin [Aspir-Low] 81 mg PO DAILY 09/06/18 10/05/18 naproxen sodium 220 mg PO DAILY 09/06/18 10/05/18 cyanocobalamin (vitamin B-12) 1,000 mcg PO DAILY 10/05/18 10/05/18 [Vitamin B-12] magnesium oxide 600 mg PO BID 10/05/18 10/05/18 prochlorperazine maleate 5 mg PO Q12H #8 tab 10/05/18 [Compazine] pyridoxine (vitamin B6) [Vitamin 200 mg PO QID 10/05/18 10/05/18 B-6] Previous Rx's Medication Instructions Recorded pravastatin 40 mg PO DAILY #90 tab-cap 04/24/18 atenolol 50 mg tablet 75 mg PO HS #135 tab 07/06/18 ranitidine 150 mg tablet 150 mg PO BID #180 tab-cap 07/06/18 potassium chloride ER 10 mEq 10 meq PO DAILY #90 cap 09/04/18 capsule,extended release prochlorperazine maleate 5 mg PO Q12H #8 tab 10/05/18 [Compazine] Allergies Allergy/AdvReac Type Severity Reaction Status Date / Time codeine AdvReac Intermediate Nausea Verified 09/04/18 09:23 hydrochlorothiazide AdvReac Mild hypomagnese Verified 09/04/18 09:23 pop duloxetine AdvReac Other (See Verified 09/04/18 09:23 Comment) narcotics AdvReac Intermediate Nausea, Uncoded 09/04/18 09:23 vomiting General Stated Complaint: Abd Prob ROSENDO: 3 Review of Systems Review of Systems All systems reviewed & are unremarkable except as noted in HPI and below PFSH Medical History Cervical myelopathy (Chronic) Spinal stenosis, other region (Acute 12/14/11) Spinal stenosis, lumbar region without neurogenic claudication (Acute 12/14/11) Peripheral neuropathy (Acute 07/01/14) Osteopenia (Acute 12/14/11) Osteoarthritis of spine with radiculopathy, cervical region (Acute 09/05/11) Essential hypertension (Acute 02/26/13) Depression (Acute 07/01/14) Cough (Acute) Hyperlipidemia (Acute) Nausea and vomiting (Acute) Essential hypertension (Resolved) Neuropathy (Resolved) Spinal stenosis (Resolved) Hx of bacterial pneumonia Surgical History S/P cervical spinal fusion (Acute 07/31/16) H/O cystoscopy (Acute 09/06/18) Anterior Fusion Cervical Spine C3-C5 (07/31/16) Arthroplasty of knee Breast, Lumpectomy Colonoscopy - MAC (03/12/18) Hemiarthroplasty (09/07/15) Repair of umbilical hernia Rotator Cuff Repair Tenotomy and debridement tendon L shoulder (10/25/17) Social History household members: none current occupational status: retired frequency: 3-4 times per week Smoking/Tobacco Use Status: Current-Occasional alcohol intake: never substance use type: marijuana seatbelt use: always drive intox or ride w/ intox 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 Exam Narrative Exam Narrative: 1.Const: Well-nourished, Well-developed, appearing stated age 2.Eyes: PERRL, no conjunctival injection, and symmetrical lids. 3.ENT: Atraumatic external nose and ears. Dry MM. Neck: Symmetric, trachea midline, No thyromegaly. 4.CVS: +S1/S2, No murmurs or gallops. Peripheral pulses 2+ and equal in all extremities. Brisk capillary refill in all extremities. 5.RESP: Unlabored respiratory effort. Clear to auscultation bilaterally. No wheezes rales or rhonchi 6.GI: Soft, Nondistended, No hepatosplenomegaly. No guarding or rebound. Mild tenderness throughout. No pain at McBurney's point, negative Montiel sign. 7.MSK: Normocephalic/Atraumatic, Extremities w/o deformity or ttp No cyanosis or clubbing, Normal movement of all extremities 8.Skin: Warm, Dry. No rashes or lesions. 9.Neuro: fur stretcher II-XII grossly intact. Sensation grossly intact, no focal neurologic deficits. 10.Psych: (AAO) x3. Appropriate mood and affect Course Vital Signs Temperature 36.5 C 10/05/18 12:17 Pulse 68 10/05/18 12:17 Respiratory Rate 16 10/05/18 12:17 Blood Pressure 166/72 H 10/05/18 12:17 Pulse Oximetry 100 10/05/18 12:17 Temperature 36.5 C 10/05/18 12:17 Temperature Source Temporal Artery Scan 10/05/18 12:17 Pulse 68 10/05/18 12:17 Respiratory Rate 16 10/05/18 12:17 Respiratory Effort 10/05/18 12:21 Blood Pressure 166/72 H 10/05/18 12:17 Blood Pressure Position Sitting 10/05/18 12:17 Pulse Oximetry 100 10/05/18 12:17 Oxygen Delivery Method Room Air 10/05/18 12:17 Oxygen Flow Rate 0 10/05/18 12:17 Pain Level 6 10/05/18 12:17
[2018-10-05] MEDS: Normal Saline 1,000 ML 1000 ML IV (12:31)
[2018-10-05 12:37] LABS: Abs Immature Grans 0.04 k/cumm (0.0-0.09); Absolute Basophil Count 0.02 k/cumm (0.0-0.2); Absolute Eosinophil Count 0.06 k/cumm (0.0-0.7); Absolute Lymphocyte Count 1.94 k/cumm (1.2-3.4); Absolute Monocyte Count 1.28 k/cumm (0.11-0.7); Basophils % 0.1; Eosinophils % 0.4; HCT 40.6 % (36.0-46.0); HGB 14.2 g/dL (12.0-15.5); Immature Grans % 0.3; Lymphocytes % 12.9; Mean Corpuscular Hemoglobin 29.6 pg (27.0-33.0); Mean Corpuscular Volume 84.8 fL (80-95); Mean Platelet Volume 11.6 fL (8.0-11.0); Monocytes % 8.5; Neutrophils % 77.8; Platelet Count 190 x1000/uL (130-400); RBC 4.79 m/cumm (4.00-5.20); RBC Distribution Width 12.9 % (11.7-14.6); White Blood Cell Count 15.02 k/cumm (4.4-10.8)
[2018-10-05] MEDS: Ondansetron 4 MG/2 ML VIAL IVP (12:40)
[2018-10-05 12:42] LABS: Absolute Neutrophil Count 11.69 k/cumm (1.2-6.7)
[2018-10-05 12:45] VITALS: BP 167/64; PULSE 64; RESP 20; O2SAT 100
[2018-10-05 12:50] LABS: ALT 23 U/L (12-78); AST 31 U/L (15-37); Albumin 3.8 g/dL (3.4-5.0); Alkaline Phosphatase 76 U/L (46-116); Anion Gap 13.3 mmol/L (3-11); BUN 26 mg/dL (7-18); Bilirubin, Total 1.1 mg/dL (0.2-1.0); CO2 24.7 mmol/L (21.0-32.0); Calcium 9.2 mg/dL (8.5-10.1); Chloride 96 mmol/L (98-107); Glucose 93 mg/dL (70-100); Lipase 160 U/L (73-393); Potassium 2.8 mmol/L (3.5-5.1); Sodium 134 mmol/L (136-145); Total Protein 7.7 g/dL (6.4-8.2)
[2018-10-05 12:54] LABS: Troponin I < 0.02 ng/mL (0.00-0.06)
[2018-10-05] MEDS: POTASSIUM CHLORIDE 20 MEQ/100 ML BAG 50 MEQ IVPB (13:02)
[2018-10-05 13:03] LABS: Magnesium 1.6 mg/dL (1.8-2.4)
[2018-10-05] MEDS: Potassium Chloride 20 MEQ TABCR 40 MEQ PO (13:07)
[2018-10-05] MEDS: MAGNESIUM SULFATE 1 GM/100 ML BAG IVPB (13:38)
[2018-10-05 13:41] VITALS: BP 159/62; PULSE 73; RESP 18; O2SAT 95
--- NOTE | 2018-10-05 13:44 | NUR.NOTE ---
Nursing Note: Pt encouraged to drink CT drink as best she can. warm blankets provided for comfort. mag and K+ infusing as ordered. call light in reach, rings for needs.will continue to monitor
--- NOTE | 2018-10-05 13:56 | NUR.NOTE ---
Nursing Note: Pt refusing to drink CT contrast drink. [place] aware.
[2018-10-05 14:17] VITALS: BP 136/65; PULSE 65; RESP 18; O2SAT 97
--- NOTE | 2018-10-05 14:50 | NUR.NOTE ---
Nursing Note: Pt off unit at this time to CT.
--- NOTE | 2018-10-05 14:55 | DI.CT_ITS ---
SYMPTOMS/DIAGNOSIS: NAUSEA AND VOMITING FOR 5 DAYS, GENERALIZED ABDOMINAL PAIN CT OF THE ABDOMEN AND PELVIS: Comparison is made with July,. Images were performed from the lung bases through the ischial tuberosities after IV contrast. The patient was unable to drink oral contrast. The lung bases are clear. There are mild emphysematous changes visible. There is a small hiatal hernia. The liver, gallbladder, spleen, pancreas and left kidney are unremarkable. Mild bilateral adrenal prominence appears stable. There are nonobstructing stones in the right kidney, as well as a cyst at the upper pole of the right kidney. The appendix is normal. There is no bowel dilatation or inflammatory change. The uterus is again noted to be retroverted and shows several fibroids. Free fluid is again noted in the posterior pelvis, unchanged. Areas of enhancing nodularity are again noted along the left lateral aspect of the bladder, which appear smaller when compared with the previous exam. Degenerative changes are seen at the L4-5 level. IMPRESSION: Small amount of fluid in the lower pelvis, stable. The previously noted bladder lesions appear smaller. No acute abnormality is identified.
[2018-10-05] MEDS: Omnipaque 350 MG/ML 100 ML BTL 77 ML IJ (15:00)
--- NOTE | 2018-10-05 15:58 | NUR.NOTE ---
Nursing Note: Pt getting dressed preparing for d/c.
--- NOTE | 2018-10-05 18:16 | PDOC.ERCMPRO ---
- If Service Date Differs Date of service: 10/05/18 Time of Service: 18:16 Care Management Progress Note CM met with the patient at the request of Dr. Chaudhari. Belén is in the ER today for what she reports is a week of nausea and vomiting and loose stools. Belén has [facility] support services in the community.Ramiro Wilson is her [facility] coordinator. CM contacted Ramiro who reports that Belén has been having difficulty participating in any activity, and that her appetite has been poor at home. Patient reports she is not eating her meals on wheels and that she put the service on hold recently. She does report several stressors including financial, and her health. Ramiro is concerned that Belén's health condition is deteriorating as she is exhibiting signs of weakness and not wanting to even take care of her animals. CM reviewed current care with community support and requested a follow-up with Dr. Dorsey related to chronic health conditions. CM suggested behavioral health referral at [facility] internal medicine in addition. CM arrange transportation home from the ED with Ramiro no other services anticipated at this time.
--- NOTE | 2018-10-05 18:20 | CMPROGNOTE_ITS ---
- If Service Date Differs Date of service: 10/05/18 Time of Service: 18:16 Care Management Progress Note CM met with the patient at the request of Dr. Chaudhari. Belén is in the ER today for what she reports is a week of nausea and vomiting and loose stools. Belén has [facility] support services in the community.Ramiro Wilson is her [facility] coordinator. CM contacted Ramiro who reports that Belén has been having difficulty participating in any activity, and that her appetite has been poor at home. Patient reports she is not eating her meals on wheels and that she put the service on hold recently. She does report several stressors including financial, and her health. Ramiro is concerned that Belén's health condition is deteriorating as she is exhibiting signs of weakness and not wanting to even take care of her animals. CM reviewed current care with community support and requested a follow-up with Dr. Dorsey related to chronic health conditions. CM suggested behavioral health referral at [facility] internal medicine in addition. CM arrange transportation home from the ED with Ramiro no other services anticipated at this time.
== END 2018-10-05 16:49 | disposition home or self-care (01) ==
PROVIDERS: Emergency Provider Student in an Organized Health Care Education/Training Program; PCP Internal Medicine
DX: E86.0 Dehydration (principal); E83.42 Hypomagnesemia; E87.6 Hypokalemia; R11.2 Nausea with vomiting, unspecified; I10 Essential (primary) hypertension
CPT/HCPCS: 80053; 83690; 93005; 96361; 96365; 96366; 96368; 96375; 99285; 74177; 83735; 84484; 85025; 93010; J2405; J3475; J3480; J3490

== ENCOUNTER 2018-10-19 11:29 | Outpatient (CLI) | payer MEDICARE, OTHER, SELFPAY ==
[2018-10-19 12:44] LABS: POTASSIUM,URINE RANDOM 79 mmol/L
[2018-10-19 12:45] LABS: Creatinine,Urine 305.98 mg/dL
[2018-10-19 13:33] LABS: Albumin 3.8 g/dL (3.4-5.0); Anion Gap 9.1 mmol/L (3-11); BUN 15 mg/dL (7-18); CO2 27.9 mmol/L (21.0-32.0); CREATININE 0.99 mg/dL (0.55-1.02); Calcium 9.3 mg/dL (8.5-10.1); Chloride 102 mmol/L (98-107); Estimated GFR 55.78 (mL/min/1.73m2); Glucose 82 mg/dL (70-100); Magnesium 1.5 mg/dL (1.8-2.4); Potassium 3.6 mmol/L (3.5-5.1); Sodium 139 mmol/L (136-145)
[2018-10-20 09:43] LABS: Magnesium Random Urine 8.3 mg/dl
== END 2018-10-19 11:49 ==
PROVIDERS: PCP Internal Medicine; Visit Provider Internal Medicine Nephrology
DX: E87.6 Hypokalemia (principal); E83.42 Hypomagnesemia
CPT/HCPCS: 36415; 80048; 83735; 82040; 82565; 84133

== ENCOUNTER → 2018-10-22 12:04 | Outpatient (BNVA) | payer MEDICARE, OTHER, SELFPAY | PROVIDERS: PCP Internal Medicine; Visit Provider Psychiatry & Neurology Neurology | DX: G95.9 Disease of spinal cord, unspecified (principal); R20.2 Paresthesia of skin; I10 Essential (primary) hypertension | CPT/HCPCS: 95908; 99213 ==

== ENCOUNTER 2018-10-29 00:36 | Outpatient (CLI) | payer MEDICARE, OTHER, SELFPAY ==
--- NOTE | 2018-10-29 10:34 | DI.MRI_ITS ---
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 The patient has undergone anterior cervical fusion since the previous exam from the C3 through C5 levels. The cervical cord again shows some high signal. There is now thinning of the cord in the region of the high signal, consistent with cord atrophy. The cord above and below this area shows normal signal and normal thickness. There is improvement in the canal diameter following the surgery. No disc herniation is seen. There is severe neural foraminal narrowing on the right at C6-7 and C7- T1. IMPRESSION: Status post anterior cervical fusion. Improvement in canal diameter at the level of the fusion. Cord atrophy is now seen at these levels.
== END 2018-10-29 00:56 ==
PROVIDERS: PCP Internal Medicine; Visit Provider Psychiatry & Neurology Neurology
DX: R26.89 Other abnormalities of gait and mobility (principal); R20.9 Unspecified disturbances of skin sensation; Z98.1 Arthrodesis status; G95.89 Other specified diseases of spinal cord
CPT/HCPCS: 72141

== ENCOUNTER 2018-10-30 12:00 | Outpatient (CLI) | payer MEDICARE, OTHER, SELFPAY | END 2018-10-30 12:20 | PROVIDERS: PCP Internal Medicine; Referring Provider Internal Medicine; Visit Provider Orthopaedic Surgery | DX: G89.29 Other chronic pain (principal); M25.512 Pain in left shoulder | CPT/HCPCS: 99213 ==

== ENCOUNTER → 2018-12-11 09:42 | Outpatient (BNVA) | payer MEDICARE, OTHER, SELFPAY | PROVIDERS: PCP Internal Medicine; Referring Provider Internal Medicine; Visit Provider Orthopaedic Surgery | DX: M54.2 Cervicalgia (principal); M25.512 Pain in left shoulder; Z98.890 Other specified postprocedural states | CPT/HCPCS: 20610; 99212; 99213; J1040 ==

== ENCOUNTER 2018-12-13 16:31 | Emergency (ER) | payer MEDICARE, OTHER, SELFPAY ==
[2018-12-13 16:40] VITALS: BP 179/70; PULSE 73; RESP 14; TEMP 37.2; O2SAT 99
--- NOTE | 2018-12-13 16:44 | W.ED.GENAD ---
Discharge Plan Disposition Patient Disposition: HOME Condition: Stable Discharge Details Chief Complaint: Nausea/Vomit/Diar Clinical Impression: Kidney stone Primary Care Provider: Mary Dorsey ED Provider: Chris Meyer Home Meds and New Rx's Prescriptions: New prochlorperazine maleate [Compazine] 10 mg tablet 10 mg PO TID PRN (Reason: nausea and vomiting) Qty: 30 RF: 0 oxycodone 5 mg tablet 5 mg PO Q6H PRN (Reason: pain) Qty: 12 RF: 0 No Action spironolactone 25 mg tablet 25 mg PO DAILY Qty: 30 RF: 0 calcium carbonate-vitamin D3 [Calcium 500 + D] 1 EACH tablet 1 ea PO DAILY RF: 0 selenomethionine 200 MCG tablet 200 mcg PO DAILY RF: 0 multivitamin [Daily Multi-Vitamin] 1 EACH tablet 1 ea PO DAILY RF: 0 pravastatin 40 MG tablet 40 mg PO DAILY Qty: 90 RF: 3 atenolol 50 mg tablet 75 mg PO HS Qty: 135 RF: 3 ranitidine HCl 150 mg tablet 150 mg PO BID Qty: 180 RF: 3 folic acid 1 mg tablet 400 mcg PO DAILY RF: 0 potassium chloride 10 mEq capsule, extended release 10 meq PO DAILY Qty: 90 RF: 3 Hold Instructions: None cyanocobalamin (vitamin B-12) [Vitamin B-12] 1,000 mcg Tablet 1,000 mcg PO DAILY RF: 0 pyridoxine (vitamin B6) [Vitamin B-6] 100 mg Tablet 200 mg PO QID RF: 0 prochlorperazine maleate [Compazine] 5 mg tablet 5 mg PO Q12H Qty: 8 RF: 0 gabapentin 300 mg Capsule 300 mg PO .NOON RF: 0 gabapentin 300 mg capsule 600 mg PO .AM,HS RF: 0 aspirin [Aspir-Low] 81 mg Tablet,Delayed Release (Dr/Ec) 81 mg PO DAILY RF: 0 naproxen sodium 220 mg Tablet 220 mg PO DAILY RF: 0 Discharge Instructions Instructions: Kidney Stones (ED) Additional Instructions: Take aleve and tylenol for the pain. If you need additional pain medication take 1 oxycodone, do not drink alcohol or drive if you take this medicine you should be contacted with an appointment with urology if you develop fevers or persistent vomit return to the emergency department for reevaluation Medical Decision Making 68 yo female comes in with several days of n/v despite using zofran and intermittent abdominal pain/cramping. She denies new foods or travel. She denies chest pain or sob so doubt acs as a cause of her symptoms and on exam has tenderness in the lower abdomen. Will treat her symptoms and obtain ct and lab work for further evaluation of her symptoms to include sbo, diverticulitis, colitis pts blood work shows no significant abnormalities, ct shows kidney stone. She is tolerating PO, has no cva tenderness and is stable for outpatient management. Will refer to urology for an apppointment as soon as possible, and return precautions given. Differential Diagnosis gastroenteritis, colitis, sbo Imaging Data Radiologic Study: Attestation: I personally reviewed and interpreted this imaging study as follows: Imaging: CT Scan Radiologist's impression: 1. Moderate to severe right obstructive uropathy caused by a 6 mm calculus impacted in the distal right ureter. 2. Known urinary bladder lesions are not confidently evaluated in this examination due to almost complete urinary bladder underdistention. 3. Stable 8mm pulmonary nodule in the left lower lobe. A 5 mm pulmonary nodule in the right middle lobe was not previously seen, as the area was outside the [id number]. Consider further evaluation with chest CT, alternatively for patients at low risk (minimal or absent history of smoking and of other known risk factors), recommend CT at 3-6 months, then consider CT at 18-24 months. For patients at high risk (history of smoking or of other known risk factors), recommend CT at 3-6 months, then CT at 18-24 months. (Joe et al., Fleischner Society, 2017) 4. Other stable/incidental findings as detailed above. Lab Data Lab results reviewed: Yes I reviewed the patient's lab results. HPI General Date/Time Provider Initiated Documentation: 12/13/18 16:37. Limitations to Documentation: no limitations. Information obtained by: patient. History of Present Illness 68 year old F presents to the emergency department with the chief complaint of nausea and vomit, described as moderate, Patient started experiencing this day(s) (3) and it has been intermittent. No relieving factors improve symptom(s), No exacerbating factors reported . Patient notes other (abdominal pain). Patient did receive the following treatments prior to arrival, other (zofran) Related Data Home Medications Medication Instructions Recorded Confirmed calcium carbonate-vitamin D3 1 ea PO DAILY 09/06/16 12/11/18 [Calcium 500 + D] selenomethionine 200 mcg PO DAILY 06/21/17 12/11/18 multivitamin [Daily Multi-Vitamin] 1 ea PO DAILY 09/26/17 12/11/18 pravastatin 40 mg PO DAILY #90 tab-cap 04/24/18 12/11/18 atenolol 50 mg tablet 75 mg PO HS #135 tab 07/06/18 12/11/18 ranitidine 150 mg tablet 150 mg PO BID #180 tab-cap 07/06/18 12/11/18 gabapentin 300 mg PO .NOON 09/04/18 12/11/18 gabapentin 600 mg PO .AM,HS 09/04/18 12/11/18 aspirin [Aspir-Low] 81 mg PO DAILY 09/06/18 12/11/18 naproxen sodium 220 mg PO DAILY 09/06/18 12/11/18 cyanocobalamin (vitamin B-12) 1,000 mcg PO DAILY 10/05/18 12/11/18 [Vitamin B-12] prochlorperazine maleate 5 mg PO Q12H #8 tab 10/05/18 12/11/18 [Compazine] pyridoxine (vitamin B6) [Vitamin 200 mg PO QID 10/05/18 12/11/18 B-6] folic acid 1 mg tablet 400 mcg PO DAILY tab-cap 10/10/18 12/11/18 potassium chloride ER 10 mEq 10 meq PO DAILY #90 cap 11/06/18 12/11/18 capsule,extended release spironolactone 25 mg tablet 25 mg PO DAILY #30 tab 12/05/18 12/11/18 oxycodone 5 mg PO Q6H PRN #12 tab 12/13/18 prochlorperazine maleate 10 mg PO TID PRN #30 tab 12/13/18 [Compazine] Previous Rx's Medication Instructions Recorded pravastatin 40 mg PO DAILY #90 tab-cap 04/24/18 atenolol 50 mg tablet 75 mg PO HS #135 tab 07/06/18 ranitidine 150 mg tablet 150 mg PO BID #180 tab-cap 07/06/18 prochlorperazine maleate 5 mg PO Q12H #8 tab 10/05/18 [Compazine] potassium chloride ER 10 mEq 10 meq PO DAILY #90 cap 11/06/18 capsule,extended release spironolactone 25 mg tablet 25 mg PO DAILY #30 tab 12/05/18 oxycodone 5 mg PO Q6H PRN #12 tab 12/13/18 prochlorperazine maleate 10 mg PO TID PRN #30 tab 12/13/18 [Compazine] Allergies Allergy/AdvReac Type Severity Reaction Status Date / Time codeine AdvReac Intermediate Nausea Verified 12/13/18 16:43 hydrochlorothiazide AdvReac Mild hypomagnese Verified 12/13/18 16:43 pop duloxetine AdvReac Other (See Verified 12/13/18 16:43 Comment) narcotics AdvReac Intermediate Nausea, Uncoded 12/13/18 16:43 vomiting General Stated Complaint: Nausea/Vomit/Diar ROSENDO: 3 Review of Systems Review of Systems All systems reviewed & are unremarkable except as noted in HPI and below Constitutional Denies chills and Denies fever(s) Eyes Denies loss of vision ENT Denies change in voice Cardiovascular Denies chest pain and Denies dyspnea Respiratory Denies cough and Denies dyspnea Gastrointestinal Denies nausea Genitourinary Denies dysuria Musculoskeletal Denies joint swelling Integumentary/Breasts Denies rash Neurologic Denies loss of vision PFSH Medical History Urothelial carcinoma of bladder (Chronic) Cervical myelopathy (Chronic) Spinal stenosis, other region (Acute 12/14/11) Spinal stenosis, lumbar region without neurogenic claudication (Acute 12/14/11) Peripheral neuropathy (Acute 07/01/14) Osteopenia (Acute 12/14/11) Osteoarthritis of spine with radiculopathy, cervical region (Acute 09/05/11) Essential hypertension (Acute 02/26/13) Depression (Acute 07/01/14) Cough (Acute) Hyperlipidemia (Acute) Nausea and vomiting (Acute) Essential hypertension (Resolved) Neuropathy (Resolved) Spinal stenosis (Resolved) Hx of bacterial pneumonia Surgical History S/P cervical spinal fusion (Acute 07/31/16) H/O cystoscopy (Acute 09/06/18) Anterior Fusion Cervical Spine C3-C5 (07/31/16) Arthroplasty of knee Breast, Lumpectomy Colonoscopy - MAC (03/12/18) Hemiarthroplasty (09/07/15) Repair of umbilical hernia Rotator Cuff Repair Tenotomy and debridement tendon L shoulder (10/25/17) Family History Father Essential hypertension Glaucoma Alzheimer's dementia Social History Smoking/Tobacco Use Status: Current-Occasional Alcohol Intake: never Drug use: Occasionally Substance use type: marijuana Household members: none Housing: house Pets and animals: Yes Pets and animals: cat(s) What type of physical activity do you participate in: other Details: PT 2 xweek Frequency: 1-2 times per week Seatbelt use: always Drive intox or ride w/intox emergency medical technician/driver: No Working smoke detector in home: Yes Fire extinguisher in home: Yes Carbon monox detector in home: Yes Do you feel safe at home: Yes Do you feel safe in your relationship?: Yes Additional Social history: Lives in her own apartment in [place], with 7 cats and 1 dog [facility], retired in [place] after going to college at [employer] 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 Exam Const General: no acute distress Orientation: alert HENMT Head: normal to inspection Ears: external ears normal General nose exam: external nose normal Mouth: moist mucous membranes Eyes General: appearance normal, both eyes and all related structures Neck Neck: normal visual inspection Resp Effort & Inspection: normal respiratory effort and able to speak in complete sentences Cardio Rate: regular rate GI Inspection: normal to inspection and no abdominal wall ecchymosis Skin General skin exam: no rashes or lesions noted Neuro General: alert and oriented x3 Extrem General: normal to inspection Psych Mental Status: mental status grossly normal Course Vital Signs Temperature 37.2 C 12/13/18 16:40 Pulse 73 12/13/18 16:40 Respiratory Rate 14 12/13/18 16:40 Blood Pressure 179/70 H 12/13/18 16:40 Pulse Oximetry 99 12/13/18 16:40 Temperature 37.2 C 12/13/18 16:40 Temperature Source Temporal Artery Scan 12/13/18 16:40 Pulse 73 12/13/18 16:40 Respiratory Rate 14 12/13/18 16:40 Blood Pressure 179/70 H 12/13/18 16:40 Blood Pressure Position Supine 12/13/18 16:40 Pulse Oximetry 99 12/13/18 16:40 Oxygen Delivery Method Room Air 12/13/18 16:40 Oxygen Flow Rate 0 12/13/18 16:40 Pain Level 5 12/13/18 16:40
--- NOTE | 2018-12-13 16:47 | DI.CT_ITS ---
SYMPTOM/DIAGNOSIS: ABD PAIN, NAUSEA, VOMITING ABDOMEN AND PELVIC CT: Comparison is made with 10/13/10. There is a 5 mm. nodule in the lateral aspect of the right middle lobe. There is a 8 mm. nodule seen in the left lower lobe which appears stable. Emphysematous changes are seen in the lung bases. The liver is normal in size. No suspicious hepatic masses are seen. The portal, superior mesenteric and splenic veins are patent. The gallbladder is negative. No biliary ductal dilatation is seen. The pancreas and spleen are unremarkable. There is unchanged nodularity of the adrenal glands. The left kidney shows no evidence of nephrolithiasis or hydronephrosis. There is a 6 mm. stone at the right ureterovesicular junction causing moderate to severe hydronephrosis. There is a cyst seen in the upper pole of the right kidney. The urinary bladder is intact. There is thickening of the wall of the urinary bladder likely reflecting under distension. There are a few stones seen in the dependent portion of the urinary bladder on the left. Reproductive organs are unremarkable. The bowel shows no evidence of obstruction or inflammation. There is a normal appendix seen in the right lower quadrant. No findings to suggest acute appendicitis. There is a small amount of free fluid in the pelvis. There is atherosclerosis of the abdominal aorta but no aneurysmal dilatation is seen. No significant abdominal or pelvic adenopathy or pneumoperitoneum is present. Degenerative changes are seen in the spine. No aggressive osseous lesions are identified. IMPRESSION: 1. 6 mm. stone at the right ureterovesicular junction causing moderate to severe right hydronephrosis. 2. Bladder lesions are not well evaluated on this examination due to the under distension of the urinary bladder. 3. Pulmonary nodules visualized in the right middle lobe and the left lower lobe. These appear stable compared to CT scan of the chest from 05/29/[address] scan of the abdomen and pelvis from 10/05/18.
--- NOTE | 2018-12-13 17:04 | ED.GENADUL_ITS ---
Discharge Plan Disposition Patient Disposition: HOME Condition: Stable Discharge Details Chief Complaint: Nausea/Vomit/Diar Clinical Impression: Kidney stone Primary Care Provider: Mary Dorsey ED Provider: Chris Meyer Home Meds and New Rx's Prescriptions: New prochlorperazine maleate [Compazine] 10 mg tablet 10 mg PO TID PRN (Reason: nausea and vomiting) Qty: 30 RF: 0 oxycodone 5 mg tablet 5 mg PO Q6H PRN (Reason: pain) Qty: 12 RF: 0 No Action spironolactone 25 mg tablet 25 mg PO DAILY Qty: 30 RF: 0 calcium carbonate-vitamin D3 [Calcium 500 + D] 1 EACH tablet 1 ea PO DAILY RF: 0 selenomethionine 200 MCG tablet 200 mcg PO DAILY RF: 0 multivitamin [Daily Multi-Vitamin] 1 EACH tablet 1 ea PO DAILY RF: 0 pravastatin 40 MG tablet 40 mg PO DAILY Qty: 90 RF: 3 atenolol 50 mg tablet 75 mg PO HS Qty: 135 RF: 3 ranitidine HCl 150 mg tablet 150 mg PO BID Qty: 180 RF: 3 folic acid 1 mg tablet 400 mcg PO DAILY RF: 0 potassium chloride 10 mEq capsule, extended release 10 meq PO DAILY Qty: 90 RF: 3 Hold Instructions: None cyanocobalamin (vitamin B-12) [Vitamin B-12] 1,000 mcg Tablet 1,000 mcg PO DAILY RF: 0 pyridoxine (vitamin B6) [Vitamin B-6] 100 mg Tablet 200 mg PO QID RF: 0 prochlorperazine maleate [Compazine] 5 mg tablet 5 mg PO Q12H Qty: 8 RF: 0 gabapentin 300 mg Capsule 300 mg PO .NOON RF: 0 gabapentin 300 mg capsule 600 mg PO .AM,HS RF: 0 aspirin [Aspir-Low] 81 mg Tablet,Delayed Release (Dr/Ec) 81 mg PO DAILY RF: 0 naproxen sodium 220 mg Tablet 220 mg PO DAILY RF: 0 Discharge Instructions Instructions: Kidney Stones (ED) Additional Instructions: Take aleve and tylenol for the pain. If you need additional pain medication take 1 oxycodone, do not drink alcohol or drive if you take this medicine you should be contacted with an appointment with urology if you develop fevers or persistent vomit return to the emergency department for reevaluation Medical Decision Making 68 yo female comes in with several days of n/v despite using zofran and intermittent abdominal pain/cramping. She denies new foods or travel. She denies chest pain or sob so doubt acs as a cause of her symptoms and on exam has tenderness in the lower abdomen. Will treat her symptoms and obtain ct and lab w ork for further evaluation of her symptoms to include sbo, diverticulitis, colitis pts blood work shows no significant abnormalities, ct shows kidney stone. She is tolerating PO, has no cva tenderness and is stable for outpatient management. Will refer to urology for an apppointment as soon as possible, and return precautions given. Differential Diagnosis gastroenteritis, colitis, sbo Imaging Data Radiologic Study: Attestation: I personally reviewed and interpreted this imaging study as jaime nichols: Imaging: CT Scan Radiologist's impression: 1. Moderate to severe right obstructive uropathy caused by a 6 mm calculus impacted in the distal right ureter. 2. Known urinary bladder lesions are not confidently evaluated in this examination due to almost complete urinary bladder underdistention. 3. Stable 8mm pulmonary nodule in the left lower lobe. A 5 mm pulmonary nodule in the right middle lobe was not previously seen, as the area was outside the [id number]. Consider further evaluation with chest CT, alternatively for patients at low risk (minimal or absent history of smoking and of other known risk factors), recommend CT at 3-6 months, then consider CT at 18-24 months. For patients at high risk (history of smoking or of other known risk factors), recommend CT at 3-6 months, then CT at 18-24 months. (Joe et al., Fleischner Society, 2017) 4. Other stable/incidental findings as detailed above. Lab Data Lab results reviewed: Yes I reviewed the patient's lab results. HPI General Date/Time Provider Initiated Documentation: 12/13/18 16:37 . Limitations to Documentation: no limitations . Information obtained by: patient . History of Present Illness 68 year old F presents to the emergency department with the chief complaint of nausea and vomit, described as moderate, Patient started experiencing this day(s) (3) and it has been intermittent. No relieving factors improve symptom(s), No exacerbating factors reported . Patient notes other (abdominal pain). Patient did receive the following treatments prior to arrival, other (zofran) Related Data Home Medications Medication Instructions Recorded Confirmed calcium carbonate-vitamin D3 1 ea PO DAILY 09/06/16 12/11/18 [Calcium 500 + D] selenomethionine 200 mcg PO DAILY 06/21/17 12/11/18 multivitamin [Daily Multi-Vitamin] 1 ea PO DAILY 09/26/17 12/11/18 pravastatin 40 mg PO DAILY #90 tab-cap 04/24/18 12/11/18 atenolol 50 mg tablet 75 mg PO HS #135 tab 07/06/18 12/11/18 ranitidine 150 mg tablet 150 mg PO BID #180 tab-cap 07/06/18 12/11/18 gabapentin 300 mg PO .NOON 09/04/18 12/11/18 gabapentin 600 mg PO .AM,HS 09/04/18 12/11/18 aspirin [Aspir-Low] 81 mg PO DAILY 09/06/18 12/11/18 naproxen sodium 220 mg PO DAILY 09/06/18 12/11/18 cyanocobalamin (vitamin B-12) 1,000 mcg PO DAILY 10/05/18 12/11/18 [Vitamin B-12] prochlorperazine maleate 5 mg PO Q12H #8 tab 10/05/18 12/11/18 [Compazine] pyridoxine (vitamin B6) [Vitamin 200 mg PO QID 10/05/18 12/11/18 B-6] folic acid 1 mg tablet 400 mcg PO DAILY tab-cap 10/10/18 12/11/18 potassium chloride ER 10 mEq 10 meq PO DAILY #90 cap 11/06/18 12/11/18 capsule,extended release spironolactone 25 mg tablet 25 mg PO DAILY #30 tab 12/05/18 12/11/18 oxycodone 5 mg PO Q6H PRN #12 tab 12/13/18 prochlorperazine maleate 10 mg PO TID PRN #30 tab 12/13/18 [Compazine] Previous Rx's Medication Instructions Recorded pravastatin 40 mg PO DAILY #90 tab-cap 04/24/18 atenolol 50 mg tablet 75 mg PO HS #135 tab 07/06/18 ranitidine 150 mg tablet 150 mg PO BID #180 tab-cap 07/06/18 prochlorperazine maleate 5 mg PO Q12H #8 tab 10/05/18 [Compazine] potassium chloride ER 10 mEq 10 meq PO DAILY #90 cap 11/06/18 capsule,extended release spironolactone 25 mg tablet 25 mg PO DAILY #30 tab 12/05/18 oxycodone 5 mg PO Q6H PRN #12 tab 12/13/18 prochlorperazine maleate 10 mg PO TID PRN #30 tab 12/13/18 [Compazine] Allergies Allergy/AdvReac Type Severity Reaction Status Date / Time codeine AdvReac Intermediate Nausea Verified 12/13/18 16:43 hydrochlorothiazide AdvReac Mild hypomagnese Verified 12/13/18 16:43 pop duloxetine AdvReac Other (See Verified 12/13/18 16:43 Comment) narcotics AdvReac Intermediate Nausea, Uncoded 12/13/18 16:43 vomiting General Stated Complaint: Nausea/Vomit/Diar ROSENDO: 3 Review of Systems Review of Systems All systems reviewed & are unremarkable except as noted in HPI and below Constitutional Denies chills and Denies fever(s) Eyes Denies loss of vision ENT Denies change in voice Cardiovascular Denies chest pain and Denies dyspnea Respiratory Denies cough and Denies dyspnea Gastrointestinal Denies nausea Genitourinary Denies dysuria Musculoskeletal Denies joint swelling Integumentary/Breasts Denies rash Neurologic Denies loss of vision PFSH Medical History Urothelial carcinoma of bladder (Chronic) Cervical myelopathy (Chronic) Spinal stenosis, other region (Acute 12/14/11) Spinal stenosis, lumbar region without neurogenic claudication (Acute 12/14/11) Peripheral neuropathy (Acute 07/01/14) Osteopenia (Acute 12/14/11) Osteoarthritis of spine with radiculopathy, cervical region (Acute 09/05/11) Essential hypertension (Acute 02/26/13) Depression (Acute 07/01/14) Cough (Acute) Hyperlipidemia (Acute) Nausea and vomiting (Acute) Essential hypertension (Resolved) Neuropathy (Resolved) Spinal stenosis (Resolved) Hx of bacterial pneumonia Surgical History S/P cervical spinal fusion (Acute 07/31/16) H/O cystoscopy (Acute 09/06/18) Anterior Fusion Cervical Spine C3-C5 (07/31/16) Arthroplasty of knee Breast, Lumpectomy Colonoscopy - MAC (03/12/18) Hemiarthroplasty (09/07/15) Repair of umbilical hernia Rotator Cuff Repair Tenotomy and debridement tendon L shoulder (10/25/17) Family History Father Essential hypertension Glaucoma Alzheimer's dementia Social History Smoking/Tobacco Use Status: Current-Occasional Alcohol Intake: never Drug use: Occasionally Substance use type: marijuana Household members: none Housing: house Pets and animals: Yes Pets and animals: cat(s) What type of physical activity do you participate in: other Details: PT 2 xweek Frequency: 1-2 times per week Seatbelt use: always Drive intox or ride w/intox limb driver: No Working smoke detector in home: Yes Fire extinguisher in home: Yes Carbon monox detector in home: Yes Do you feel safe at home: Yes Do you feel safe in your relationship?: Yes Additional Social history: Lives in her own apartment in [place], with 7 cats and 1 dog From [facility], retired in [place] after going to college at [employer] 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 Exam Const General: no acute distress Orientation: alert HENMT Head: normal to inspection Ears: external ears normal General nose exam: external nose normal Mouth: moist mucous membranes Eyes General: appearance normal, both eyes and all related structures Neck Neck: normal visual inspection Resp Effort & Inspection: normal respiratory effort and able to speak in complete sentences Cardio Rate: regular rate GI Inspection: normal to inspection and no abdominal wall ecchymosis Skin General skin exam: no rashes or lesions noted Neuro General: alert and oriented x3 Extrem General: normal to inspection Psych Mental Status: mental status grossly normal Course Vital Signs Temperature 37.2 C 12/13/18 16:40 Pulse 73 12/13/18 16:40 Respiratory Rate 14 12/13/18 16:40 Blood Pressure 179/70 H 12/13/18 16:40 Pulse Oximetry 99 12/13/18 16:40 Temperature 37.2 C 12/13/18 16:40 Temperature Source Temporal Artery Scan 12/13/18 16:40 Pulse 73 12/13/18 16:40 Respiratory Rate 14 12/13/18 16:40 Blood Pressure 179/70 H 12/13/18 16:40 Blood Pressure Position Supine 12/13/18 16:40 Pulse Oximetry 99 12/13/18 16:40 Oxygen Delivery Method Room Air 12/13/18 16:40 Oxygen Flow Rate 0 12/13/18 16:40 Pain Level 5 12/13/18 16:40
[2018-12-13 17:24] LABS: Abs Immature Grans 0.02 k/cumm (0.0-0.09); Absolute Basophil Count 0.01 k/cumm (0.0-0.2); Absolute Eosinophil Count 0.01 k/cumm (0.0-0.7); Absolute Lymphocyte Count 1.13 k/cumm (1.2-3.4); Absolute Monocyte Count 0.62 k/cumm (0.11-0.7); Absolute Neutrophil Count 7.74 k/cumm (1.2-6.7); Basophils % 0.1; Eosinophils % 0.1; HGB 12.9 g/dL (12.0-15.5); Immature Grans % 0.2; Lymphocytes % 11.9; Mean Corp. HGB Concentration 33.9 g/dL (32.0-36.0); Mean Corpuscular Hemoglobin 29.7 pg (27.0-33.0); Mean Corpuscular Volume 87.4 fL (80-95); Mean Platelet Volume 11.3 fL (8.0-11.0); Monocytes % 6.5; Neutrophils % 81.2; Platelet Count 180 x1000/uL (130-400); RBC 4.35 m/cumm (4.00-5.20); RBC Distribution Width 13.5 % (11.7-14.6); White Blood Cell Count 9.53 k/cumm (4.4-10.8)
[2018-12-13] MEDS: Normal Saline 1,000 ML 1000 ML IV (17:37)
[2018-12-13] MEDS: Prochlorperazine 10 MG/2 ML VIAL IVP (17:37)
[2018-12-13 17:38] LABS: ALT 20 U/L (12-78); AST 27 U/L (15-37); Albumin 3.8 g/dL (3.4-5.0); Alkaline Phosphatase 75 U/L (46-116); Anion Gap 10.5 mmol/L (3-11); BUN 21 mg/dL (7-18); Bilirubin, Direct 0.19 mg/dL (0.00-0.20); Bilirubin, Total 0.7 mg/dL (0.2-1.0); CO2 25.5 mmol/L (21.0-32.0); CREATININE 0.84 mg/dL (0.55-1.02); Chloride 100 mmol/L (98-107); Glucose 107 mg/dL (70-100); Lipase 325 U/L (73-393); Potassium 3.3 mmol/L (3.5-5.1); Sodium 136 mmol/L (136-145); Total Protein 7.7 g/dL (6.4-8.2)
[2018-12-13 17:44] LABS: Calcium 9.2 mg/dL (8.5-10.1)
[2018-12-13 17:50] VITALS: O2SAT 98
[2018-12-13 17:52] VITALS: BP 124/78; PULSE 71; O2SAT 98
[2018-12-13] MEDS: Normal Saline Flush 10 ML SYR IVP ×2 (17:54→18:59)
[2018-12-13] MEDS: Omnipaque 350 MG/ML 100 ML BTL IJ (17:54)
--- NOTE | 2018-12-13 18:29 | DI.VRAD_ITS ---
EXAM: CT Abdomen and Pelvis With Contrast EXAM DATE/TIME: 12/13/2018 4:48 PM CLINICAL HISTORY: 68 years old, female; Signs and symptoms; Other: Abdominal pain, n/v; Prior surgery; Surgery date: 1-6 months; Surgery type: Patient states she was told she had bladder CA and has 3 small tumors removed TECHNIQUE: Imaging protocol: Axial computed tomography images of the abdomen and pelvis with intravenous contrast. Coronal and sagittal reformatted images were created and reviewed. Radiation optimization: All CT scans at this facility use at least one of these dose optimization techniques: automated exposure control; mA and/or kV adjustment per patient size (includes targeted exams where dose is matched to clinical indication); or iterative reconstruction. Contrast material: Omnipaque 350 Contrast volume: 100 ml Contrast route: IV COMPARISON: CT Abdomen^ROUTINE ABDOMEN PELVIS WITH CONTRAST (Adult) 10/05/2018 2:49 PM FINDINGS: Lower thorax: Stable 8mm nodule in the left lower lobe (image 19 series 4). 5 mm nodule is seen in the right middle lobe on image 7 series 4. Stable focal area of emphysema versus pulmonary cyst in the right lung base. Stable diffuse centrilobular emphysema of the lung bases. No acute interstitial or airspace disease is grossly noted. ABDOMEN: Liver: Normal. No mass. Gallbladder and bile ducts: Normal. No calcified stones. No ductal dilation. Pancreas: Normal. No ductal dilation. Spleen: Normal. No splenomegaly. Adrenals: Bilateral nonspecific adrenal gland thickening is stable and most likely senile in etiology. Kidneys and ureters: There is a 6 mm x 5.3 mm calculus impacted in the distal right ureter, causing moderate to severe upstream hydroureteronephrosis. There is significant right perinephric stranding, as well as right periureteral stranding. A right simple renal cyst is noted, stable. The left kidney appears unremarkable. There is no evidence of left obstructive uropathy. Stomach and bowel: There is no evidence of intestinal perforation or obstruction. There is excessive colonic stool content. Appendix: No evidence of appendicitis. PELVIS: Bladder: Several small calculi are seen layering in the dependent portions of the urinary bladder, adjacent to the left UVJ. The previously described bladder lesions are not confidently evaluated in this examination, as the urinary bladder is almost completely decompressed. Reproductive: Unremarkable as visualized. ABDOMEN and PELVIS: Intraperitoneal space: There is a small amount of free fluid in the cul-de-sac. Bones/joints: No acute skeletal pathology. Severe multilevel degenerative changes of the spine, as manifested by multilevel anterior osteophytes and multilevel decrease in intervertebral disc space. Soft tissues: Unremarkable. Vasculature: The vasculature demonstrates diffuse moderate atherosclerotic calcification. Lymph nodes: Normal. No enlarged lymph nodes. IMPRESSION: 1. Moderate to severe right obstructive uropathy caused by a 6 mm calculus impacted in the distal right ureter. 2. Known urinary bladder lesions are not confidently evaluated in this examination due to almost complete urinary bladder underdistention. 3. Stable 8mm pulmonary nodule in the left lower lobe. A 5 mm pulmonary nodule in the right middle lobe was not previously seen, as the area was outside the [id number]. Consider further evaluation with chest CT, alternatively for patients at low risk (minimal or absent history of smoking and of other known risk factors), recommend CT at 3-6 months, then consider CT at 18-24 months. For patients at high risk (history of smoking or of other known risk factors), recommend CT at 3-6 months, then CT at 18-24 months. (Joe et al., Fleischner Society, 2017) 4. Other stable/incidental findings as detailed above. Dictated and Authenticated by: Corey Browning MD. Ordering:DIMAS Perez MD
[2018-12-13 18:39] LABS: Bilirubin Negative (Negative); Blood Trace-intact (Negative); Clarity Clear; Glucose Negative (Negative); Ketones Trace mg/dL (Negative); Leukocyte Esterase Negative (Negative); Nitrite Negative (Negative); Specific Gravity 1.015 (1.005-1.025)
[2018-12-13 18:44] LABS: WBC 0-2 HPF (0-5)
[2018-12-13 18:45] LABS: Bacteria Few HPF (Negative); C & S Indicated? No; Casts Negative LPF (Negative); Crystals Negative HPF (Negative); Epithelial Cells Negative HPF (Negative); Mucus Trace (Negative); Other Cells Rare Renal (Negative)
[2018-12-13] MEDS: Ketorolac 15 MG/ML VIAL IVP (18:59)
[2018-12-13 19:06] VITALS: BP 124/78; PULSE 71; RESP 14; TEMP 37.2; O2SAT 98
--- NOTE | 2018-12-14 08:18 | PDOC.ERCMPRO ---
Care Management Progress Note 12/14-Dr. Meyer requested assistance with a urology consult for kidney stone. Referral faxed to [facility] this am.
--- NOTE | 2018-12-14 08:19 | CMPROGNOTE_ITS ---
Care Management Progress Note 12/14-Dr. Meyer requested assistance with a urology consult for kidney stone. Referral faxed to [facility] this am.
== END 2018-12-13 19:06 | disposition home or self-care (01) ==
PROVIDERS: Emergency Provider Emergency Medicine; PCP Internal Medicine
DX: N13.2 Hydronephrosis with renal and ureteral calculous obstruction (principal); R91.1 Solitary pulmonary nodule; I10 Essential (primary) hypertension
CPT/HCPCS: 36415; 80053; 80076; 83690; 96361; 96374; 96375; 99285; 74177; 81003; 81015; 85025; J0780; J1885; J3490

== ENCOUNTER → 2018-12-28 10:24 | Outpatient (BNVA) | payer MEDICARE, OTHER, SELFPAY | PROVIDERS: PCP Internal Medicine; Visit Provider Urology | DX: C67.9 Malignant neoplasm of bladder, unspecified (principal); N20.1 Calculus of ureter | CPT/HCPCS: 52000; 99212 ==

== ENCOUNTER 2019-01-16 00:52 | Outpatient (CLI) | payer MEDICARE, OTHER, SELFPAY ==
--- NOTE | 2019-01-16 08:44 | DI.RAD_ITS ---
SYMPTOM/DIAGNOSIS: VOMITING, NAUSEA, R11.2 BARIUM SWALLOW: Fluoroscopy Time: 1.19 seconds A preliminary soft tissue examination of the neck reveals an anterior plate and screw fixation device in place in conjunction with a fusion involving C 3 through C 5. The soft tissues appear intact. A preliminary chest is unremarkable. The patient swallowed barium without difficulty. The vishal and hypopharynx appear intact. The barium is projected normally into the esophagus. There is no evidence of a stricture or mass. A tiny hiatus hernia is demonstrated. There is no evidence of gastroesophageal reflux. SUMMARY: Normal barium swallow.
[2019-01-16] MEDS: Barium Sulfate 60% W/V 355 ML BTL PO (09:51)
== END 2019-01-16 01:12 ==
PROVIDERS: PCP Internal Medicine; Visit Provider Internal Medicine
DX: R11.2 Nausea with vomiting, unspecified (principal); K44.9 Diaphragmatic hernia without obstruction or gangrene
CPT/HCPCS: 74220; J3490

== ENCOUNTER 2019-01-22 09:58 | Outpatient (CLI) | payer MEDICARE, OTHER, SELFPAY ==
--- NOTE | 2019-01-22 09:54 | DI.RAD_ITS ---
SYMPTOMS/DIAGNOSIS: LT SHOULDER PAIN LEFT SHOULDER: Three views. Comparison is 04/03/18. There are again seen post surgical changes of a left shoulder replacement. Old healed proximal left humeral fracture is noted. Old well corticated osseous fragments are seen inferior to the glenoid. These appear stable. No acute fracture or dislocation is seen. No findings to suggest hardware failure is present. The soft tissues are unremarkable. IMPRESSION: Stable left shoulder.
== END 2019-01-22 10:18 ==
PROVIDERS: PCP Internal Medicine; Referring Provider Internal Medicine; Visit Provider Orthopaedic Surgery
DX: M25.512 Pain in left shoulder (principal); Z96.612 Presence of left artificial shoulder joint; M75.02 Adhesive capsulitis of left shoulder; Z98.890 Other specified postprocedural states
CPT/HCPCS: 99213; 73030

== ENCOUNTER 2019-02-01 01:45 | Outpatient (CLI) | payer MEDICARE, OTHER, SELFPAY ==
--- NOTE | 2019-02-01 08:14 | DI.NM_ITS ---
SYMPTOMS/DIAGNOSIS: RECURRENT VOMITING X MOS, UMBILICAL HERNIA YEARS AGO GASTRIC EMPTYING NUCLEAR MEDICINE STUDY: Gastric emptying study was performed with ingestion of a meal containing 1 mCi of technetium 99 labelled sulfur colloid. Gastric emptying was measured at one hour, two hours and four hours with percent residual meal estimated at 44%, 19% and 14%. The one-hour results are within the normal range. Two-hour results are slightly below the normal range, indicating slightly increased emptying compared to expected. The four-hour results are 14% with 10% residual the upper limits of normal. CONCLUSION: Mildly abnormal gastric emptying results with slightly increased gastric meal remaining on the four-hour images only.
== END 2019-02-01 02:05 ==
PROVIDERS: PCP Internal Medicine; Visit Provider Internal Medicine
DX: R11.10 Vomiting, unspecified (principal); K30 Functional dyspepsia
CPT/HCPCS: 78265

== ENCOUNTER 2019-02-22 12:43 | Outpatient (CLI) | payer MEDICARE, OTHER, SELFPAY ==
[2019-02-22 14:12] LABS: Anion Gap 11.5 mmol/L (3-11); BUN 17 mg/dL (7-18); CO2 25.5 mmol/L (21.0-32.0); CREATININE 1.09 mg/dL (0.55-1.02); Calcium 9.6 mg/dL (8.5-10.1); Chloride 101 mmol/L (98-107); Estimated GFR 49.77 (mL/min/1.73m2); Glucose 82 mg/dL (70-100); Magnesium 1.5 mg/dL (1.8-2.4); Sodium 138 mmol/L (136-145)
== END 2019-02-22 13:03 ==
PROVIDERS: PCP Internal Medicine; Visit Provider Internal Medicine
DX: E83.42 Hypomagnesemia (principal); E87.6 Hypokalemia
CPT/HCPCS: 80048; 83735

== ENCOUNTER → 2019-04-02 10:22 | Outpatient (BNVA) | payer MEDICARE, OTHER, SELFPAY | PROVIDERS: PCP Internal Medicine; Visit Provider Urology | DX: C67.9 Malignant neoplasm of bladder, unspecified (principal) | CPT/HCPCS: 52000; 99212 ==

== ENCOUNTER → 2019-04-03 10:17 | Outpatient (BNVA) | payer MEDICARE, OTHER, SELFPAY | PROVIDERS: PCP Internal Medicine; Referring Provider Internal Medicine; Visit Provider Orthopaedic Surgery | DX: Z96.612 Presence of left artificial shoulder joint (principal); Z47.89 Encounter for other orthopedic aftercare | CPT/HCPCS: 99213 ==

== ENCOUNTER → 2019-04-15 09:59 | Outpatient (BNVA) | payer MEDICARE, OTHER, SELFPAY | PROVIDERS: Visit Provider Psychiatry & Neurology Neurology | DX: G95.9 Disease of spinal cord, unspecified (principal); R20.2 Paresthesia of skin; I10 Essential (primary) hypertension | CPT/HCPCS: 99214 ==

== ENCOUNTER 2019-04-24 11:24 | Outpatient (CLI) | payer MEDICARE, OTHER, SELFPAY ==
[2019-04-24 12:55] LABS: Hemoglobin A1C 5.2 % (4.5-6.2)
[2019-04-24 12:57] LABS: Anion Gap 10.8 mmol/L (3-11); BUN 23 mg/dL (7-18); CO2 24.2 mmol/L (21.0-32.0); Calcium 9.3 mg/dL (8.5-10.1); Chloride 103 mmol/L (98-107); Estimated GFR 49.25 (mL/min/1.73m2); Glucose 86 mg/dL (70-100); Potassium 4.7 mmol/L (3.5-5.1); Sodium 138 mmol/L (136-145)
[2019-04-24 13:13] LABS: Magnesium 1.6 mg/dL (1.8-2.4); TSH (W/Ref FT4) 1.07 uIU/mL (0.36-3.74)
[2019-04-24 13:14] LABS: Folate > 20.0 ng/mL (8.6-20.0)
[2019-04-25 14:02] LABS: Albumin 54.7 % (55.8-66.1); Total Protein 6.5 g/dl (6.3-8.2)
== END 2019-04-24 11:44 ==
PROVIDERS: PCP Internal Medicine; Visit Provider Psychiatry & Neurology Neurology
DX: R20.2 Paresthesia of skin (principal); G62.9 Polyneuropathy, unspecified; E83.42 Hypomagnesemia; R79.89 Other specified abnormal findings of blood chemistry
CPT/HCPCS: 36415; 80048; 82746; 83036; 83735; 84165; 84443

== ENCOUNTER 2019-07-12 01:42 | Outpatient (CLI) | payer MEDICARE, OTHER, SELFPAY ==
--- NOTE | 2019-07-12 10:53 | DI.CTLCSR_ITS ---
EXAM: CT CHEST LUNG CANCER SCREEN CLINICAL HISTORY: screening for lung cancer HX NICOTINE DEPENDENCE Z87.891 TECHNIQUE: Low-dose noncontrast COMPARISON: CHEST - LUNG CANCER SCREENING from 05/22/2017 CHEST - LUNG CANCER SCREENING from 05/22/2017 CT CHEST LUNG CANCER SCREEN from 05/29/2018 FINDINGS: Is a stable 9 millimeter nodule at the posterior left lung base laterally. There has also been no c hange in right lower lobe subpleural pulmonary nodules. No new nodules, infiltrates or effusions are seen. There are mild to moderate underlying emphysematous changes. Coronary artery calcifications and mild aortic calcifications are again noted. IMPRESSION: Lung RADS Cat 2 - Benign Appearance / Behavior: Nodules with a very low likelihood of becoming a clin ically active caner due to size or lack of growth. Annual low-dose screening chest CT is recommended .
== END 2019-07-12 02:02 ==
PROVIDERS: PCP Internal Medicine; Visit Provider Internal Medicine
DX: Z87.891 Personal history of nicotine dependence (principal); Z12.2 Encounter for screening for malignant neoplasm of respiratory organs; R91.1 Solitary pulmonary nodule; J43.9 Emphysema, unspecified; I25.10 Atherosclerotic heart disease of native coronary artery without angina pectoris; I70.0 Atherosclerosis of aorta
CPT/HCPCS: G0297

== ENCOUNTER → 2019-07-18 09:58 | Outpatient (BNVA) | payer MEDICARE, OTHER, SELFPAY | PROVIDERS: PCP Internal Medicine; Referring Provider Internal Medicine; Visit Provider Urology | DX: C67.9 Malignant neoplasm of bladder, unspecified (principal) | CPT/HCPCS: 52000; 99212 ==

== ENCOUNTER 2019-08-05 09:46 | Day surgery (SDC) | payer MEDICARE, OTHER, SELFPAY ==
[2019-08-05] VITALS (10 sets, daily range): BP systolic 107–134; BP diastolic 49–69; PULSE 63–86; RESP 12–22; TEMP 36.7; O2SAT 93–99
[2019-08-05] MEDS: Lactated Ringers 1,000 ML 80 ML IV (10:25)
[2019-08-05] MEDS: ceFAZolin 1 GM/50 ML BAG IVPB (12:00)
[2019-08-05] MEDS: Lidocaine 2% Jelly 6 ML SYR (12:19)
--- NOTE | 2019-08-05 12:28 | BLADDER_PTH ---
PATIENT: Belén Velasquez LOC: [facility] U#:[id number] AGE/SX: 69/F ROOM: RE08/05/[address]: Davian Wiggins MD : [id number] BED: DIS: 08/05/2019 SPEC #: [id number] RECD: 08/05/19 13:13 STATUS: YUMI REQ #: [id number] MELODIE: 08/05/19 12:[address]: Davian Wiggins DEPT: Surgical Specimen RECD BY: Юлия Bland ENTERED: 08/05/19 13:13 SP TYPE: Bladder OTHR DR: Mary Dorsey MD Tissues: 1 - BLADDER BIOPSY Procedures: GROSS AND MICRO LEVEL 4 Comments: [id number]
--- NOTE | 2019-08-05 12:51 | W.PM.DSUDISC ---
Discharge Plan Disposition Patient Disposition: HOME Condition: Stable Discharge Details Attending Provider: Davian Wiggins Primary Care Provider: Mary Dorsey Home Meds and New Rx's Prescriptions: No Action spironolactone 25 mg tablet 25 mg PO DAILY Qty: 90 RF: 3 ondansetron 4 mg tablet,disintegrating 4 mg PO DAILY PRN (Reason: nausea and vomiting) Qty: 10 RF: 2 cetirizine [Zyrtec] 10 mg tablet 10 mg PO BID RF: 0 gabapentin 600 mg tablet 600 mg PO TID RF: 0 acetaminophen 500 mg capsule 1,000 mg PO BID RF: 0 acetaminophen [Acetaminophen Pain Relief] 500 mg tablet 1,000 mg PO HS RF: 0 pyridoxine (vitamin B6) 100 mg tablet 100 mg PO DAILY RF: 0 amlodipine 2.5 mg tablet 2.5 mg PO DAILY Qty: 90 RF: 3 pravastatin 40 mg tablet 40 mg PO DAILY Qty: 90 RF: 3 ranitidine HCl 150 mg tablet 150 mg PO BID Qty: 180 RF: 3 potassium chloride 10 mEq capsule, extended release 10 meq PO DAILY Qty: 90 RF: 3 Hold Instructions: Home Medication placed on hold at Doctor's office calcium carbonate-vitamin D3 [Calcium 500 + D] 500 mg(1,250mg) -400 unit tablet 1 tab PO BID RF: 0 selenomethionine 200 mcg tablet 200 mcg PO DAILY RF: 0 multivitamin [Daily Multi-Vitamin] Tablet 1 tab PO HS RF: 0 magnesium oxide 400 mg magnesium tablet 400 mg PO DAILY Qty: 90 RF: 3 cyanocobalamin (vitamin B-12) [Vitamin B-12] 1,000 mcg Tablet 1,000 mcg PO DAILY RF: 0 aspirin [Aspir-Low] 81 mg Tablet,Delayed Release (Dr/Ec) 81 mg PO DAILY RF: 0 diclofenac sodium 1 % gel 2 gm TP QID PRNRF: 0 Discharge Instructions Additional Instructions: Leave rayo (with Mitomycin) clamped for @ 1 hour then unclamp and remove rayo Unclamp rayo sooner if pt experienced bladder pain Follow up 1 to 2 weeks for pathology results Discharge Orders Discharge Orders: Discharge Order (Routine); Ordered 08/05/19 Ordered By: Davian Wiggins DS: Diagnosis Discharge Diagnosis (1) Urothelial carcinoma of bladder: Status: Chronic
--- NOTE | 2019-08-05 14:15 | ROE_ITS ---
DATE OF PROCEDURE: August 05, 2019 PREOPERATIVE DIAGNOSIS: Bladder tumor. POSTOPERATIVE DIAGNOSIS: Same. PROCEDURE: Cystoscopy; transurethral resection of small bladder tumor; installation of mitomycin-C. SURGEON: Davian Wiggins M.D. ANESTHESIA: General. COMPLICATIONS: None. ESTIMATED BLOOD LOSS: Minimal. HISTORY: This is a 69-year-old woman who has a history of low-grade, noninvasive urothelial cell car cinoma of the bladder. On her most-recent surveillance cystoscopy we found a recurrence just in front of the left ureteral o rifice. She presents for transurethral resection and possible installation of mitomycin-C. OPERATIVE REPORT: The patient was brought to the operating room on 08/05/19. She was given a dose o f IV antibiotics. After successful induction of general anesthesia, she was placed in the dorsal lithotomy position. H er genitalia was prepped and draped. A 24 Stateless resectoscope sheath was passed through the urethra into the bladder. The bladder was ins pected with a 30-degree lens. The papillary lesion was again visualized. On this occurrence it appeared to completely encircle the left ureteral orifice. It still measured < 2 cm in largest dimension. We then utilized a bipolar cautery and a resectoscope loop to resect the tumor in its entirety. We m stephanie sure not to coagulate over the ureteral orifice. The resected tissue was evacuated and sent to pathology for permanent section. We then passed an 18 Stateless catheter through the urethra into the bladder. The catheter was balloon was inflated with 10 cc's of sterile water. 40 mg of mitomycin-C mixed in 40 mL of sterile water was then instilled into the bladder. The catheter was clamped. We will allow the medication to remain within the bladder for an hour before the catheter is removed.
[2019-08-05] MEDS: Phenazopyridine 200 MG TAB PO (14:53)
== END 2019-08-05 15:39 | disposition home or self-care (01) ==
PROVIDERS: PCP Internal Medicine; Visit Provider Urology
PROC: 0TBB8ZZ Excision of Bladder, Via Natural or Artificial Opening Endoscopic (ICD-10-PCS; CPT 52234; principal; 2019-08-05 11:15)
PROC: (CPT 52234; 2019-08-05 11:15)
DX: C67.6 Malignant neoplasm of ureteric orifice (principal); I10 Essential (primary) hypertension
CPT/HCPCS: 52234; 51720; 88305; J0131; J0690; J1100; J1885; J2250; J2405; J3010; J9280

== ENCOUNTER → 2019-08-19 14:21 | Outpatient (BNVA) | payer MEDICARE, OTHER, SELFPAY | PROVIDERS: PCP Internal Medicine; Referring Provider Internal Medicine; Visit Provider Urology | DX: N39.0 Urinary tract infection, site not specified (principal); C67.9 Malignant neoplasm of bladder, unspecified; Z79.899 Other long term (current) drug therapy | CPT/HCPCS: 81003; 99213 ==

== ENCOUNTER 2019-08-19 16:31 | Outpatient (REF) | payer MEDICARE, OTHER, SELFPAY | END 2019-08-19 16:51 | LOC: LBN 16:31 | PROVIDERS: PCP Internal Medicine; Visit Provider Urology | DX: C67.9 Malignant neoplasm of bladder, unspecified (principal); Z79.899 Other long term (current) drug therapy; N39.0 Urinary tract infection, site not specified | CPT/HCPCS: 87077; 87086; 87186 ==

== ENCOUNTER → 2019-09-30 10:05 | Outpatient (BNVA) | payer MEDICARE, OTHER, SELFPAY | PROVIDERS: PCP Internal Medicine; Visit Provider Psychiatry & Neurology Neurology | DX: R20.2 Paresthesia of skin (principal); G62.9 Polyneuropathy, unspecified; G95.9 Disease of spinal cord, unspecified | CPT/HCPCS: 99213 ==

== ENCOUNTER 2019-10-17 07:41 | Outpatient (CLI) | payer MEDICARE, OTHER, SELFPAY ==
--- NOTE | 2019-10-17 10:15 | DI.RAD_ITS ---
EXAM: XR HIP RT COMPLETE AP PELVIS INDICATION: pain RT HIP PAIN M25.551. COMPARISON: No exams were available for comparison TECHNIQUE: 2D digital imaging was performed. FINDINGS: There is mild narrowing of the right hip joint space. The hip joint is otherwise well maintained. O n the left, there is more moderate joint space narrowing and subchondral sclerosis. The bones are in tact and normally mineralized. Vascular calcifications are seen in the soft tissues which are otherw ise unremarkable. The sacroiliac joints and symphysis pubis are intact. Degenerative changes are se en in the lower lumbar spine. IMPRESSION: Degenerative changes of the right hip.
== END 2019-10-17 08:01 ==
PROVIDERS: PCP Internal Medicine; Visit Provider Internal Medicine
DX: M25.551 Pain in right hip (principal); M16.11 Unilateral primary osteoarthritis, right hip
CPT/HCPCS: 73502

== ENCOUNTER → 2019-11-22 12:36 | Outpatient (BNVA) | payer MEDICARE, OTHER, SELFPAY | PROVIDERS: PCP Internal Medicine; Referring Provider Internal Medicine; Visit Provider Urology | DX: C67.9 Malignant neoplasm of bladder, unspecified (principal) | CPT/HCPCS: 52000; 99213 ==

== ENCOUNTER → 2019-11-26 09:57 | Outpatient (BNVA) | payer MEDICARE, OTHER, SELFPAY | PROVIDERS: PCP Internal Medicine; Referring Provider Internal Medicine; Visit Provider Orthopaedic Surgery | DX: M70.61 Trochanteric bursitis, right hip (principal) | CPT/HCPCS: 99214 ==

== ENCOUNTER 2019-11-28 07:25 | Day surgery (SDC) | payer MEDICARE, OTHER, SELFPAY ==
[2019-11-28 07:30] VITALS: BP 121/72; PULSE 69; RESP 16; TEMP 36.4; O2SAT 100
[2019-11-28] MEDS: Lactated Ringers 1,000 ML 80 ML IV (08:14)
--- NOTE | 2019-11-28 08:52 | W.PM.HP.N ---
Date of service: 11/28/19 Time of Service: 08:52 Assessment and Plan Assessment and plan (1) Urothelial carcinoma of bladder: Status: Chronic Assessment and plan: We will move ahead with cystoscopy, transurethral resection of visible tumors and instillation of chemotherapy History of Present Illness History of Present Illness Chief Complaint: Bladder cancer Narrative: ) Urothelial carcinoma of bladder: She does have tumor recurrence, so we will proceed with transurethral resection or biopsy and fulguration of the visible lesions. We will instill a chemotherapy agent into the bladder postop. Since her tumors have recurred with mitomycin, we would give her a dose of gemcitabine this time. 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 She comes in for surveillance cystoscopy. She has not seen any gross hematuria Review of systems: She has no fever or chills She has had some GI upset this morning but not chronically She has no chest pain or palpitations Exam Const Other: She is in no obvious distress. Her vital signs are documented elsewhere She does not appear septic or toxic She is awake, alert and oriented Vital Signs 11/22/19 12:58 Height 1.57 m Weight 52.163 kg BMI 21.0 BP 108/50 L Pulse 85 Intake Visit Reasons: 3 MO FU CYSTO Allergies Allergy/AdvReac Type Severity Reaction Status Date / Time codeine AdvReac Intermediate Nausea Verified 10/16/19 15:22 hydrochlorothiazide AdvReac Mild hypomagnese Verified 10/16/19 15:22 pop duloxetine AdvReac Other (See Verified 10/16/19 15:22 Comment) narcotics AdvReac Intermediate Nausea, Uncoded 10/16/19 15:22 vomiting [facility] Social History Smoking/Tobacco Use Status: Former Tobacco Use Quit Date: 09/25/12 Alcohol Intake: former Drug use: Occasionally Substance use type: marijuana Details: marijuana: last used t-1 Household members: none Housing: house Pets and animals: Yes Pets and animals: cat(s) Current gender identity: female What type of physical activity do you participate in: other Details: PT 2 xweek Frequency: 1-2 times per week Seatbelt use: always Drive intox or ride w/intox dedicated regional driver: No Working smoke detector in home: Yes Fire extinguisher in home: Yes Carbon monox detector in home: Yes Do you feel safe at home: Yes Do you feel safe in your relationship?: Yes Additional Social history: Lives in her own apartment in [place], with 7 cats and 1 dog From [facility], retired in [place] after going to college at [employer] 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 Meds Home Medications and Allergies Home Medications Medication Instructions Recorded Confirmed Type aspirin [Aspir-Low] 81 mg PO DAILY 09/06/18 11/28/19 History cyanocobalamin (vitamin B-12) 1,000 mcg PO DAILY 10/05/18 11/28/19 History [Vitamin B-12] acetaminophen 500 mg capsule 1,000 mg PO BID cap 06/12/19 11/28/19 History amlodipine 2.5 mg tablet 2.5 mg PO DAILY #90 tab 06/12/19 11/28/19 Rx calcium carbonate 500 mg (1,250 1 tab PO BID tab 06/12/19 11/28/19 History mg)-vitamin D3 400 unit tablet cetirizine 10 mg tablet 10 mg PO BID tab 06/12/19 11/28/19 History multivitamin 1 tab PO HS tab 06/12/19 11/28/19 History pyridoxine (vitamin B6) 100 mg 100 mg PO DAILY tab 06/12/19 11/28/19 History tablet selenomethionine 200 mcg tablet 200 mcg PO DAILY 06/12/19 11/28/19 History magnesium oxide 400 mg PO DAILY #90 tab 06/18/19 11/28/19 Rx diclofenac sodium 2 gm TP QID PRN 08/02/19 11/28/19 History potassium chloride 10 mEq 10 meq PO DAILY #90 cap 10/01/19 11/28/19 Rx capsule,extended release spironolactone 25 mg tablet 25 mg PO DAILY #90 tab 10/01/19 11/28/19 Rx ondansetron 4 mg disintegrating 4 mg PO DAILY PRN #10 tab 10/29/19 11/28/19 Rx tablet gabapentin 800 mg PO TID 11/25/19 11/28/19 History prednisone 5 mg tablet 5 mg PO DAILY #30 tab 11/26/19 11/28/19 Rx Allergies Allergy/AdvReac Type Severity Reaction Status Date / Time codeine AdvReac Intermediate Nausea Verified 11/28/19 07:48 hydrochlorothiazide AdvReac Mild hypomagnese Verified 11/28/19 07:48 pop duloxetine AdvReac Other (See Verified 11/28/19 07:48 Comment) narcotics AdvReac Intermediate Nausea, Uncoded 11/28/19 07:48 vomiting Exam Resp Effort & Inspection: normal respiratory effort Auscultation: clear to auscultation bilaterally Cardio Rate: regular rate Rhythm: regular rhythm Results Last Vital Signs Temp 36.4 C L 11/28/19 07:30 Pulse 69 11/28/19 07:30 Resp 16 11/28/19 07:30 BP 121/72 11/28/19 07:30 Pulse Ox 100 11/28/19 07:30
[2019-11-28] MEDS: ceFAZolin 1 GM/50 ML BAG IVPB (09:28)
--- NOTE | 2019-11-28 09:50 | BLADDER_PTH ---
PATIENT: Belén Velasquez LOC: [facility] U#:[id number] AGE/SX: 69/F ROOM: RE11/28/[address]: Davian Wiggins MD : 1950 BED: DIS: 11/28/2019 SPEC #: [id number] RECD: 11/28/19 12:35 STATUS: YUMI REQ #: [id number] MELODIE: 11/28/19 09:[address]: Davian Wiggins DEPT: Surgical Specimen RECD BY: Юлия Bland ENTERED: 11/28/19 12:36 SP TYPE: Bladder OTHR DR: Mary Dorsey MD Tissues: 1 - BLADDER BIOPSY Procedures: GROSS AND MICRO LEVEL 4 Comments: [id number]
--- NOTE | 2019-11-28 10:05 | W.PM.DSUDISC ---
Discharge Plan Disposition Patient Disposition: HOME Condition: Stable Discharge Details Reason For Visit: bladder tumor Attending Provider: Davian Wiggins Primary Care Provider: Mary Dorsey Home Meds and New Rx's Prescriptions: No Action prednisone 5 mg tablet 5 mg PO DAILY Qty: 30 RF: 1 cetirizine [Zyrtec] 10 mg tablet 10 mg PO BID RF: 0 acetaminophen 500 mg capsule 1,000 mg PO BID RF: 0 pyridoxine (vitamin B6) 100 mg tablet 100 mg PO DAILY RF: 0 amlodipine 2.5 mg tablet 2.5 mg PO DAILY Qty: 90 RF: 3 calcium carbonate-vitamin D3 [Calcium 500 + D] 500 mg(1,250mg) -400 unit tablet 1 tab PO BID RF: 0 selenomethionine 200 mcg tablet 200 mcg PO DAILY RF: 0 multivitamin [Daily Multi-Vitamin] Tablet 1 tab PO HS RF: 0 magnesium oxide 400 mg magnesium tablet 400 mg PO DAILY Qty: 90 RF: 3 potassium chloride 10 mEq capsule, extended release 10 meq PO DAILY Qty: 90 RF: 2 Hold Instructions: Home Medication placed on hold at Doctor's office spironolactone 25 mg tablet 25 mg PO DAILY Qty: 90 RF: 2 ondansetron 4 mg tablet,disintegrating 4 mg PO DAILY PRN (Reason: nausea and vomiting) Qty: 10 RF: 2 cyanocobalamin (vitamin B-12) [Vitamin B-12] 1,000 mcg Tablet 1,000 mcg PO DAILY RF: 0 gabapentin 800 mg tablet 800 mg PO TID RF: 0 aspirin [Aspir-Low] 81 mg Tablet,Delayed Release (Dr/Ec) 81 mg PO DAILY RF: 0 diclofenac sodium 1 % gel 2 gm TP QID PRNRF: 0 Discharge Instructions Additional Instructions: leave rayo catheter clamp with medication in bladder for 1 to 2 hours (unclamp prn pain) after bladder has been drained, remove rayo catheter followup cystoscopy in 3 months in office phone call for pathology results 1 to 2 weeks OK to start steroids tomorrow 11/29/2019 Activity:: Activity as Tolerated Shower/Bathe:: 24 hours Diet:: As Tolerated Discharge Orders Discharge Orders: Discharge Order (Routine); Ordered 11/28/19 Ordered By: Davian Wiggins DS: Diagnosis Discharge Diagnosis (1) Urothelial carcinoma of bladder: Status: Chronic
[2019-11-28 10:12] VITALS: BP 108/59; PULSE 81; RESP 20; TEMP 36.8; O2SAT 98
[2019-11-28 10:17] VITALS: BP 130/81; PULSE 79; RESP 19; TEMP 36.8; O2SAT 99
[2019-11-28 10:22] VITALS: BP 126/78; PULSE 71; RESP 16; TEMP 36.8; O2SAT 99
[2019-11-28] MEDS: GEMCITABINE HCL 2 GM, Normal Saline - Diluent 50 ML BLADIN (10:35)
[2019-11-28 11:14] VITALS: BP 125/65; PULSE 60; RESP 16; TEMP 36.2; O2SAT 99
--- NOTE | 2019-11-28 12:35 | ROE_ITS ---
DATE: NOVEMBER 28, 2019 Preoperative Diagnosis: Bladder tumor Postoperative Diagnosis: Same with pathology pending Operation: Cystoscopy, bladder biopsy with fulguration of multiple tumors. Instillation of Gemcitabine into the bladder. Anesthesia: Spinal Surgeon: Davian Wiggins M.D. Complications: None Estimated Blood Loss: Minimal History: This is a 69 year-old woman who has a history of urothelial cell carcinoma of the bladder. All of her tumors have been noninvasive. On her most recent surveillance cystoscopy she did have multiple, less than 2 cm. recurrences of papillary tumors. She presents now for biopsy and fulguration of the tumor sites with instillation of Gemcitabine into the bladder. In the past she has had Mitomycin instillations but her tumors have recurred. Procedure: The patient was brought to the Operating Room on 11/28/19. After successful induction of spinal anesthesia, she was placed in the dorsal lithotomy position. Her genitalia was prepped and draped sterilely. 2% Xylocaine jelly was instilled into the urethra to act as a local anesthetic. A #22 Saudi Arabian rigid cystoscope was passed through the urethra into the bladder. The bladder was inspected with the 30 degree lens. A scar was seen on the left side of her bladder from her previous resection. A total of three papillary lesions were seen on the bladder mucosa. Each of these lesions measured less than 2 cm. in largest dimension. One of the lesions was on the left posterior lateral wall up towards the dome. Two additional lesions were found on the right posterior lateral wall. Biopsies of two of these sites were taken using the cold cut biopsy forceps. Biopsies were sent to pathology for permanent section. The biopsy sites and the remaining papillary lesion were then cauterized using the Bugbee electrode. At the completion of the procedure hemostasis appeared good. We removed the cystoscope and passed a #16 [place] Hendricks catheter through the urethra into the bladder. A solution containing 2 grams of Gemcitabine mixed in 50 ml. of saline was then instilled into the bladder. The catheter was clamped leaving the medication in place. We will plan on unclamping the catheter and removing the Hendricks in one to two hours.
== END 2019-11-28 12:24 | disposition home or self-care (01) ==
PROVIDERS: PCP Internal Medicine; Visit Provider Urology
PROC: 0TBB8ZX Excision of Bladder, Via Natural or Artificial Opening Endoscopic, Diagnostic (ICD-10-PCS; CPT 52204; principal; 2019-11-28 09:00)
DX: C67.8 Malignant neoplasm of overlapping sites of bladder (principal)
CPT/HCPCS: 52235; 51720; 88305; NC; J0690; J1100; J2001; J2250; J2405; J2704; J9201

== ENCOUNTER → 2019-12-02 14:02 | Outpatient (BNVA) | payer MEDICARE, OTHER, SELFPAY | PROVIDERS: PCP Internal Medicine; Referring Provider Internal Medicine; Visit Provider Psychiatry & Neurology Neurology | DX: G95.9 Disease of spinal cord, unspecified (principal); R25.2 Cramp and spasm; R20.2 Paresthesia of skin | CPT/HCPCS: 99213 ==

== ENCOUNTER → 2020-03-02 10:37 | Outpatient (BNVA) | payer MEDICARE, OTHER, SELFPAY | PROVIDERS: PCP Internal Medicine; Referring Provider Internal Medicine; Visit Provider Psychiatry & Neurology Neurology | DX: M48.061 Spinal stenosis, lumbar region without neurogenic claudication (principal); M70.61 Trochanteric bursitis, right hip; R20.2 Paresthesia of skin; R25.2 Cramp and spasm; R60.0 Localized edema; G95.9 Disease of spinal cord, unspecified; I10 Essential (primary) hypertension | CPT/HCPCS: 99214 ==

== ENCOUNTER 2020-03-10 00:30 | Outpatient (CLI) | payer MEDICARE, OTHER, SELFPAY ==
--- NOTE | 2020-03-10 07:15 | DI.MRI_ITS ---
EXAM: MR LUMBAR SPINE WO CLINICAL HISTORY: right sciatica, worse balance,spinal stenosis,m48.061. TECHNIQUE: Multiplanar multisequence MRI of the Lumbar spine was performed. COMPARISON: MR MRI - LUMBAR SPINE WO CONTRAST from 06/16/2016 FINDINGS: Bones: The last intervertebral disc space is designated the L5/S1 level for the numbering purpose of this examination. The vertebral body heights are well maintained. Alignment is satisfactory. The si gnal characteristics are unremarkable. Cord: The conus tip ends at the T12 level. It is of normal size and signal intensity. T10-11: Severe narrowing of the disc space, small endplate osteophytes and degenerative signal change s. T11-12:No disc herniations or bulges are present. No central spinal canal or neural foraminal stenosi s. T12-L1: No disc herniations or bulges are present. No central spinal canal or neural foraminal stenos is. L1-2: No disc herniations or bulges are present. No central spinal canal or neural foraminal stenosis . L2-3: Mild disc bulging, facet degenerative changes. No central spinal canal or neural foraminal christie nosis. L3-4: Moderate loss of disc height. Severe broad-based disc bulging. Facet degenerative changes and ligamentous hypertrophy combine to produce severe central canal stenosis, worsening when compared wi th the previous exam. Severe bilateral neural foraminal narrowing is also seen. L4-5: Loss of disc height. Broad-based disc osteophytes. Facet degenerative changes and ligamentous hypertrophy combine to produce moderate central canal stenosis and moderate to severe bilateral neur al foraminal narrowing. L5-S1: Bulging. Ligamentous hypertrophy causing moderate central canal stenosis. Mild facet joint d egenerative changes with mild neural foraminal encroachment. Soft tissues: The visualized SI joints and sacrum are well maintained. The paraspinal soft tissues ar e unremarkable. IMPRESSION: Severe central canalstenosis and severe bilateral neural foraminal narrowing at L3-4 secondary to com bination of disc bulging, facet degenerative changes and ligamentous hypertrophy. There is moderate central canal stenosis at L4-5 and L5-S1.. DATA REPOSITORY:
== END 2020-03-10 00:50 ==
PROVIDERS: PCP Internal Medicine; Visit Provider Psychiatry & Neurology Neurology
DX: M48.061 Spinal stenosis, lumbar region without neurogenic claudication (principal); M54.41 Lumbago with sciatica, right side; M51.16 Intervertebral disc disorders with radiculopathy, lumbar region
CPT/HCPCS: 72148

== ENCOUNTER → 2020-04-07 09:13 | Outpatient (BNVA) | payer MEDICARE, OTHER, SELFPAY | PROVIDERS: PCP Internal Medicine; Referring Provider Internal Medicine; Visit Provider Urology | DX: C67.9 Malignant neoplasm of bladder, unspecified (principal); I10 Essential (primary) hypertension | CPT/HCPCS: 52000; 99213 ==

== ENCOUNTER → 2020-04-15 10:09 | Outpatient (BNVA) | payer MEDICARE, OTHER, SELFPAY | PROVIDERS: PCP Internal Medicine; Referring Provider Internal Medicine; Visit Provider Orthopaedic Surgery | DX: M70.61 Trochanteric bursitis, right hip (principal); I10 Essential (primary) hypertension | CPT/HCPCS: 20610; 99213; J1040 ==

== ENCOUNTER 2020-04-17 03:40 | Outpatient (CLI) | payer MEDICARE, OTHER, SELFPAY ==
--- NOTE | 2020-04-17 15:40 | DI.MRI_ITS ---
EXAM: MR CERVICAL SPINE WO CLINICAL HISTORY: CERVICAL RADICULOPATHY,M54.12 TECHNIQUE: Multiplanar multisequence MRI of the cervical spine was performed without intravenous con trast. COMPARISON: MR MR cervical spine wo from 10/29/2018 CR XR HIP RT COMPLETE AP PELVIS from 10/17/2019 FINDINGS: Anterior cervical fusion is again noted. This creates some artifact. There are prominent facet join t degenerative changes throughout. There is no significant narrowing of the central canal. The neur al foramen are not well seen. There is again noted to be high signal in the cervical cord and cord t hinning at C5-6 level. IMPRESSION: Stable postsurgical and degenerative changes. Stable appearance of the cervical cord with area of hi gh signal and cord atrophy. DATA REPOSITORY:
== END 2020-04-17 04:00 ==
PROVIDERS: PCP Internal Medicine; Visit Provider Nurse Practitioner Primary Care
DX: M50.122 Cervical disc disorder at C5-C6 level with radiculopathy (principal)
CPT/HCPCS: 72141

== ENCOUNTER 2020-04-20 09:05 | Outpatient (CLI) | payer MEDICARE, OTHER, SELFPAY ==
[2020-04-22 03:16] LABS: COVID-19 RT-PCR Result NEGATIVE (Negative)
== END 2020-04-20 09:25 ==
PROVIDERS: PCP Internal Medicine; Visit Provider Urology
DX: Z11.59 Encounter for screening for other viral diseases (principal)
CPT/HCPCS: U0003

== ENCOUNTER 2020-04-23 07:27 | Day surgery (SDC) | payer MEDICARE, OTHER, SELFPAY ==
[2020-04-23 07:36] VITALS: BP 152/77; PULSE 72; RESP 16; TEMP 36.6; O2SAT 99
[2020-04-23] MEDS: Lactated Ringers 1,000 ML 80 ML IV (08:08)
[2020-04-23] MEDS: ceFAZolin 1 GM/50 ML BAG IVPB (08:45)
[2020-04-23] MEDS: Lidocaine 2% Jelly 6 ML SYR (09:00)
--- NOTE | 2020-04-23 09:05 | BLADDER_PTH ---
PATIENT: Belén Velasquez LOC: [facility] U#:[id number] AGE/SX: 70/F ROOM: RE04/23/[address]: Davian Wiggins MD : 1950 BED: DIS: 04/23/2020 SPEC #: [id number] RECD: 04/23/20 12:45 STATUS: YUMI REQ #: [id number] MELODIE: 04/23/20 09:[address]: Davian Wiggins DEPT: Surgical Specimen RECD BY: Юлия Bland ENTERED: 04/23/20 12:46 SP TYPE: Bladder OTHR DR: Mary Dorsey MD Tissues: 1 - BLADDER BIOPSY Procedures: GROSS AND MICRO LEVEL 4 Comments: [id number]
[2020-04-23 10:25] VITALS: BP 142/74; PULSE 70; RESP 16; TEMP 36.4; O2SAT 97
--- NOTE | 2020-04-23 10:26 | W.PM.DSUDISC ---
Discharge Plan Disposition Patient Disposition: HOME Condition: Stable Discharge Details Attending Provider: Davian Wiggins Primary Care Provider: Mary Dorsey Home Meds and New Rx's Prescriptions: No Action gabapentin 800 mg tablet 800 mg PO TID Qty: 270 RF: 3 cetirizine [Zyrtec] 10 mg tablet 10 mg PO BID RF: 0 acetaminophen 500 mg capsule 1,000 mg PO BID RF: 0 pyridoxine (vitamin B6) 100 mg tablet 100 mg PO DAILY RF: 0 amlodipine 2.5 mg tablet 2.5 mg PO DAILY Qty: 90 RF: 3 calcium carbonate-vitamin D3 [Calcium 500 + D] 500 mg(1,250mg) -400 unit tablet 1 tab PO BID RF: 0 selenomethionine 200 mcg tablet 200 mcg PO DAILY RF: 0 multivitamin [Daily Multi-Vitamin] Tablet 1 tab PO HS RF: 0 magnesium oxide 400 mg magnesium tablet 400 mg PO DAILY Qty: 90 RF: 3 potassium chloride 10 mEq capsule, extended release 10 meq PO DAILY Qty: 90 RF: 2 Hold Instructions: Home Medication placed on hold at Doctor's office spironolactone 25 mg tablet 25 mg PO DAILY Qty: 90 RF: 2 ondansetron 4 mg tablet,disintegrating 4 mg PO DAILY PRN (Reason: nausea and vomiting) Qty: 10 RF: 3 cyanocobalamin (vitamin B-12) [Vitamin B-12] 1,000 mcg Tablet 1,000 mcg PO DAILY RF: 0 calcium carbonate [Tums] 200 mg calcium (500 mg) Tablet,Chewable 500 mg PO DAILY RF: 0 cholecalciferol (vitamin D3) [Vitamin D3] 25 mcg (1,000 unit) Capsule 1,000 unit PO DAILY RF: 0 aspirin [Aspir-Low] 81 mg Tablet,Delayed Release (Dr/Ec) 81 mg PO DAILY RF: 0 diclofenac sodium 1 % gel 2 gm TP QID PRNRF: 0 Discharge Instructions Additional Instructions: Leave rayo clamped with Mitomycin C in bladder for 1 to 2 hours (unclamp sooner prn pain), then unclamp catheter and remove rayo Follow up with me 3 months for cystoscopy Activity:: Activity as Tolerated Shower/Bathe:: 24 hours Diet:: As Tolerated Discharge Orders Discharge Orders: Discharge Order (Routine); Ordered 04/23/20 Ordered By: Davian Wiggins DS: Diagnosis Discharge Diagnosis (1) Urothelial carcinoma of bladder: Status: Chronic
--- NOTE | 2020-04-23 10:36 | W.PM.OP ---
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 She had a recent surveillance cystoscopy which showed multiple small papillary lesions. She presents for transurethral resection and instillation of chemotherapy into her bladder. Findings: Multiple small papillary lesions (less than 2 cm) Procedure Description: The patient was brought to the operating room on 04/23/2020. She is given preoperative antibiotics as well and has monitored anesthesia care. She was then placed in the dorsal lithotomy position. Her genitalia is prepped. A 26 Maltese resectoscope sheath was passed through the urethra into the bladder. The bladder was inspected with a 30 degree lens. Both ureteral orifice ease appeared normal with no blood coming from either side. There were multiple small papillary lesions (between 1 and 2 cm in largest dimension) present. 1 of the lesions was along the trigone in the midline. The second lesion was on the posterior bladder wall. 3 additional lesions were up towards the dome on the left side of the bladder. The lesion at the trigone was resected using an Mata resectoscope. That tissue was sent to pathology for permanent section. All the other lesions were cauterized using the resectoscope loop. Once all visible tumor had been destroyed or resected, we removed the resectoscope and passed a 16 Maltese Hendricks catheter through the urethra into the bladder. The catheter balloon was inflated with 10 cc of sterile water. 40 mg of mitomycin-C mixed and 40 mL of saline was then instilled into the bladder. The catheter was clamped to allow the mitomycin to remain in the bladder. The patient tolerated this procedure well. She was returned to the outpatient area. Her catheter will be unclamped and removed in 1 to 2 hours. She tolerated this procedure well.
[2020-04-23] MEDS: Phenazopyridine 200 MG TAB PO (10:41)
== END 2020-04-23 11:08 | disposition home or self-care (01) ==
PROVIDERS: PCP Internal Medicine; Visit Provider Urology
PROC: 0TBB8ZZ Excision of Bladder, Via Natural or Artificial Opening Endoscopic (ICD-10-PCS; CPT 52234; principal; 2020-04-23 10:15)
PROC: (CPT 52234; 2020-04-23 10:15)
DX: D41.4 Neoplasm of uncertain behavior of bladder (principal); Z85.51 Personal history of malignant neoplasm of bladder
CPT/HCPCS: 52234; 51720; 88305; J0690; J9280

== ENCOUNTER → 2020-05-04 11:03 | Outpatient (BNVA) | payer MEDICARE, OTHER, SELFPAY | PROVIDERS: PCP Internal Medicine; Referring Provider Internal Medicine; Visit Provider Psychiatry & Neurology Neurology | DX: R20.2 Paresthesia of skin (principal); R60.0 Localized edema; G95.9 Disease of spinal cord, unspecified; R25.2 Cramp and spasm; M48.061 Spinal stenosis, lumbar region without neurogenic claudication; I10 Essential (primary) hypertension | CPT/HCPCS: 99214 ==

== ENCOUNTER → 2020-06-17 09:52 | Outpatient (BNVA) | payer MEDICARE, OTHER, SELFPAY | PROVIDERS: PCP Internal Medicine; Referring Provider Internal Medicine; Visit Provider Orthopaedic Surgery | DX: M70.61 Trochanteric bursitis, right hip (principal); I10 Essential (primary) hypertension | CPT/HCPCS: 99213 ==

== ENCOUNTER 2020-06-24 10:06 | Outpatient (CLI) | payer MEDICARE, OTHER, SELFPAY ==
--- NOTE | 2020-06-24 11:00 | DI.MRI_ITS ---
EXAM: MR THORACIC SPINE WO CLINICAL HISTORY: THORACIC MYELOPATHY,M47.14. TECHNIQUE: Multiplanar multisequence MRI of the Thoracic spine was performed. CONTRAST MATERIAL: Noncontrast COMPARISON: CT CT CHEST LUNG CANCER SCREEN from 07/12/2019 MR MR CERVICAL SPINE WO from 04/17/2020 FINDINGS: Bones: The vertebral body heights are well maintained. Dextroscoliosis. The signal characteristics a re unremarkable. Cord: The thoracic cord is normal size and signal intensity. No intrinsic cord lesion is present. Discs: There is no evidence of a disc herniation at any level. There are degenerative disc changes wi th endplate osteophytes at multiple levels, greatest at the lower thoracic level. There is mild neura l foraminal narrowing bilaterally. There is no significant central canal stenosis. Soft tissues: Normal. IMPRESSION: Scoliosis and degenerative disc changes causing mild neural foraminal narrowing at multiple levels. DATA REPOSITORY:
== END 2020-06-24 10:26 ==
PROVIDERS: PCP Internal Medicine; Visit Provider Neurological Surgery
DX: M41.9 Scoliosis, unspecified (principal); M48.04 Spinal stenosis, thoracic region
CPT/HCPCS: 72146

== ENCOUNTER 2020-06-28 13:07 | Emergency (ER) | payer MEDICARE, OTHER, SELFPAY ==
--- NOTE | 2020-06-28 13:11 | ED.GENADUL_ITS ---
Discharge Plan Disposition Patient Disposition: HOME Condition: Stable Discharge Details Clinical Impression: Post-nasal drip, Rhinorrhea, Hypomagnesemia, Dehydration, Nausea Primary Care Provider: Mary Dorsey ED Provider: Delmis Weinstein Home Meds and New Rx's Prescriptions: New ondansetron 4 mg tablet,disintegrating 4 mg PO Q6H PRN (Reason: nausea and vomiting) Qty: 10 RF: 0 Continued gabapentin 800 mg tablet 800 mg PO TID Qty: 270 RF: 3 cetirizine [Zyrtec] 10 mg tablet 10 mg PO BID RF: 0 acetaminophen 500 mg capsule 1,000 mg PO BID RF: 0 meloxicam 15 mg tablet 15 mg PO DAILY Qty: 30 RF: 3 selenomethionine 200 mcg tablet 200 mcg PO DAILY RF: 0 multivitamin [Daily Multi-Vitamin] Tablet 1 tab PO HS RF: 0 magnesium oxide 400 mg magnesium tablet 400 mg PO DAILY Qty: 90 RF: 3 ondansetron 4 mg tablet,disintegrating 4 mg PO DAILY PRN (Reason: nausea and vomiting) Qty: 10 RF: 3 potassium chloride 10 mEq capsule, extended release 10 meq PO DAILY Qty: 90 RF: 2 Hold Instructions: Home Medication placed on hold at Doctor's office amlodipine 2.5 mg tablet 2.5 mg PO DAILY Qty: 90 RF: 3 pravastatin 40 mg tablet 40 mg PO DAILY Qty: 90 RF: 3 spironolactone 25 mg tablet 25 mg PO DAILY Qty: 90 RF: 3 calcium carbonate [Tums] 200 mg calcium (500 mg) Tablet,Chewable 500 mg PO DAILY RF: 0 cholecalciferol (vitamin D3) [Vitamin D3] 25 mcg (1,000 unit) Capsule 1,000 unit PO DAILY RF: 0 aspirin [Aspir-Low] 81 mg Tablet,Delayed Release (Dr/Ec) 81 mg PO DAILY RF: 0 diclofenac sodium 1 % gel 2 gm TP QID PRNRF: 0 Discharge Instructions Instructions: Acute Nausea and Vomiting (ED), Postnasal Drip (DC) Additional Instructions: Encourage water intake. May use Tylenol as needed for discomfort. Referral has been sent to ENT for your chronic congestion and postnasal drip. Please call number listed below to schedule follow-up appointment. Your magnesium was slightly low, this was replenished today. You may use the Zofran as prescribed if you have any recurrence of your nausea. Please follow-up with primary care in 1 week for reevaluation. If you develop difficulty breathing, shortness of breath, fevers or other new/worsening symptoms please seek care urgently once again. Referrals: Rd Christy DO [OSTEOPATHIC DOCTOR] - Mary Dorsey MD [Primary Care Provider] - Discharge Data Discharge Date/Time-TO BE ENTERED AT DEPARTURE: 06/28/20 16:00 Medical Decision Making Patient is a pleasant 70-year-old female presents with chief complaint of seasonal allergies. She reports that she has a flare like this yearly. She reports that typically this does make her feel wiped out. States that she has large quantities of nasal congestion which then causes postnasal drip and cough. She denies any fevers or chills. Denies any chest pain or shortness of breath. Reports that she has been bringing up mucus with cough as well as gag reflex associated with a postnasal drip. She reports this is been worse over the past 6 years but has been going on since she was a child. She denies any known sick contacts. No recent travel. On exam, she appears dry but otherwise nontoxic. Mucous membranes are dry. She does have some cobblestoning posterior oropharynx consistent with her history. No sinus tenderness, no lymphadenopathy, lungs are clear. She reports that typically she does become hypokalemic and hypomagnesemic when she has these sensations which I did verify in chart review. We will hydrate the patient and obtain baseline blood work. Labs reviewed. Patient has slightly low magnesium of 1.6, we will replenish this here she reports his meters feels significantly improved historically. No leukocytosis. Stable H&H. Creatinine slightly elevated at 1.06 but this is baseline for the patient. Electrolytes normal. FINDINGS: LUNGS: Clear. No pleural abnormality seen. HEART: Normal. MEDIASTINUM: Normal. OTHER FINDINGS: None. IMPRESSION: No acute pulmonary findings. Discussed these findings with the patient. She is received 1 L of hydration. She is currently receiving a magnesium bolus. She continues to report just feeling unwell. Is now reporting that she has not had her Neurontin in a few days secondary to her gag reflex being triggered by her post nasal drip. I am wondering if she may be having some withdrawal symptoms. Will give gabapentin. Reassessed the patient. She continues to feel fairly unwell but seems much more active and mobile in the room and interactive. She does not appear uncomfortable at this time. She is now reporting that she is recently advised for referral for ENT physician by her physical therapist as she has been like this for years. Is unclear if she is having an exacerbation or if this seems to be more of a chronic issue that has just been bothersome over such a long period of time. History seems to wax and wane regarding this. I do feel that referral for ENT would be appropriate given the longevity of her symptoms. We did discuss more srxy-kji-qduokco regimens that may also help with her large amount of mucus that seems to be causing the majority of her problems. Advised that she should continue with her medications as previously prescribed. I will prescribe her Zofran to help with any recurrence of her nausea that may occur although most of this does seem to be gag reflex induced this is due to postnasal drip. Encourage water intake. She did get 1 L of fluids while here. Return precautions were discussed. Advise close follow-up with primary care. Referral for ENT was placed. All questions and concerns were addressed and she is agreement this plan. HPI General Mode of arrival: ambulatory . Date/Time Provider Initiated Documentation: 06/28/20 13:08 . Limitations to Documentation: no limitations . Information obtained by: patient and RN notes reviewed . History of Present Illness 70 year old F presents to the emergency department with the chief complaint of post nasal drip, cough, congestion, described as similar to prior episodes, Quality is described as other (denies any pain at this time), and is localized to the face. Patient started experiencing this day(s) (2) and it has been constant. Rest improves symptom(s), No exacerbating factors reported . Patient notes cough and nausea/vomiting (reports nausea with post nasal drip, no vomiting); denies chest pain, fever/chills, headaches, loss of appetite, rash and shortness of breath. Patient did receive the following treatments prior to arrival, none Related Data Home Medications Medication Instructions Recorded Confirmed aspirin [Aspir-Low] 81 mg PO DAILY 09/06/18 06/28/20 acetaminophen 500 mg capsule 1,000 mg PO BID cap 06/12/19 06/28/20 cetirizine 10 mg tablet 10 mg PO BID tab 06/12/19 06/28/20 multivitamin 1 tab PO HS tab 06/12/19 06/28/20 selenomethionine 200 mcg tablet 200 mcg PO DAILY 06/12/19 06/28/20 magnesium oxide 400 mg PO DAILY #90 tab 06/18/19 06/28/20 diclofenac sodium 2 gm TP QID PRN 08/02/19 06/28/20 gabapentin 800 mg tablet 800 mg PO TID #270 tab 12/03/19 06/28/20 calcium carbonate [Tums] 500 mg PO DAILY 04/20/20 06/28/20 cholecalciferol (vitamin D3) 1,000 unit PO DAILY 04/20/20 06/28/20 [Vitamin D3] ondansetron 4 mg disintegrating 4 mg PO DAILY PRN #10 tab 04/21/20 06/28/20 tablet amlodipine 2.5 mg tablet 2.5 mg PO DAILY #90 tab 05/04/20 06/28/20 potassium chloride 10 mEq 10 meq PO DAILY #90 cap 05/04/20 06/28/20 capsule,extended release pravastatin 40 mg tablet 40 mg PO DAILY #90 tab 06/16/20 06/28/20 spironolactone 25 mg tablet 25 mg PO DAILY #90 tab 06/16/20 06/28/20 meloxicam 15 mg tablet 15 mg PO DAILY #30 tab 06/17/20 06/28/20 ondansetron 4 mg PO Q6H PRN #10 tab 06/28/20 Previous Rx's Medication Instructions Recorded magnesium oxide 400 mg PO DAILY #90 tab 06/18/19 gabapentin 800 mg tablet 800 mg PO TID #270 tab 12/03/19 ondansetron 4 mg disintegrating 4 mg PO DAILY PRN #10 tab 04/21/20 tablet amlodipine 2.5 mg tablet 2.5 mg PO DAILY #90 tab 05/04/20 potassium chloride 10 mEq 10 meq PO DAILY #90 cap 05/04/20 capsule,extended release pravastatin 40 mg tablet 40 mg PO DAILY #90 tab 06/16/20 spironolactone 25 mg tablet 25 mg PO DAILY #90 tab 06/16/20 meloxicam 15 mg tablet 15 mg PO DAILY #30 tab 06/17/20 ondansetron 4 mg PO Q6H PRN #10 tab 06/28/20 Allergies Allergy/AdvReac Type Severity Reaction Status Date / Time codeine AdvReac Intermediate Nausea Verified 06/28/20 13:17 hydrochlorothiazide AdvReac Mild hypomagnese Verified 06/28/20 13:17 pop duloxetine AdvReac Other (See Verified 06/28/20 13:17 Comment) narcotics AdvReac Intermediate Nausea, Uncoded 06/28/20 13:17 vomiting General ROSENDO: 3 Review of Systems Constitutional Constitutional: Reports as per HPI, Denies chills, Denies fever(s) and Denies headache(s) Eyes Eyes: Reports as per HPI, Denies eye discharge and Denies irritation ENT Ears, Nose, Mouth, and Throat: Reports as per HPI and Denies headache(s) Cardiovascular Cardiovascular: Reports as per HPI, Denies chest pain and Denies dyspnea Respiratory Respiratory: Reports as per HPI, Denies chest congestion, Reports cough, Denies hemoptysis, Reports excessive phlegm production and Denies dyspnea Gastrointestinal Gastrointestinal: Reports as per HPI, Denies abdominal pain, Denies change in bowel habits, Denies nausea and Denies vomiting Integumentary/Breasts Skin/Breast: Reports as per HPI and Denies rash Neurologic Neurologic: Reports as per HPI and Denies headache(s) [facility] Medical History (Updated 06/28/20 @ 15:50 by MILTON Harris) Cervical myelopathy Cough Depression (07/01/14) Essential hypertension Essential hypertension (02/26/13) Hx of bacterial pneumonia Hyperlipidemia Nausea and vomiting Neuropathy Osteoarthritis of spine with radiculopathy, cervical region (09/05/11) Osteopenia (12/14/11) Osteoporosis wrist, osteopenia hip, normal bone density of spine 2017 osteopenia 2012 Peripheral neuropathy (07/01/14) Spinal stenosis Spinal stenosis, lumbar region without neurogenic claudication (12/14/11) Spinal stenosis, other region (12/14/11) 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throplasty of knee Per patient she has not had a TOTAL KNEE Breast, Lumpectomy Colonoscopy - MAC (03/12/18) Colon,transverse,polyp,biopsy - fragment of sessile serrated adenoma. (Dr Neely) H/O cystoscopy (09/06/18) w/transurethral resection of bladder tumors-Dr Wiggins Hemiarthroplasty (09/07/15) L shoulder Dr Luz Repair of umbilical hernia Rotator Cuff Repair S/P cervical spinal fusion (07/31/16) Tenotomy and debridement tendon L shoulder (10/25/17) Family History Father Essential hypertension Glaucoma Alzheimer's dementia Social History Smoking/Tobacco Use Status: Former Tobacco Use Quit Date: 09/25/12 Alcohol Intake: former Drug use: Daily Substance use type: marijuana Details: marijuana: last used t-1 Household members: none Housing: house Pets and animals: Yes Pets and animals: cat(s) Current gender identity: female What type of physical activity do you participate in: other Details: PT 2 xweek Frequency: 1-2 times per week Seatbelt use: always Drive intox or ride w/intox ups driver: No Working smoke detector in home: Yes Fire extinguisher in home: Yes Carbon monox detector in home: Yes Do you feel safe at home: Yes Do you feel safe in your relationship?: Yes Additional Social history: Lives in her own apartment in [place], with 7 cats and 1 dog [facility], retired in [place] after going to college at [employer] 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 Exam Const General: cooperative, healthy appearing, comfortable, no acute distress, well developed and well groomed Nutritional Appearance: average body habitus and well nourished Orientation: alert and awake [facility] Head: normal to inspection, normocephalic and atraumatic Ears: hearing grossly normal bilaterally, external ears normal and TM's normal bilaterally General nose exam: external nose normal and nares normal Face and sinus: normal facial exam, sinuses nontender and face symmetric Mouth: oral mucosae normal, lip normal, tongue normal, oropharynx normal and mucous membranes dry (appears dry) Teeth and gingiva: dentition normal Throat: posterior oropharynx normal, tonsils normal and uvula midline Eyes General: appearance normal, both eyes and all related structures Neck Neck: normal visual inspection, full ROM, no lymphadenopathy and no meningeal signs Resp Effort & Inspection: normal respiratory effort, able to speak in complete sentences and no respiratory distress Auscultation: clear to auscultation bilaterally, no rales, no rhonchi and no wheezes Cardio Rate: regular rate Rhythm: regular rhythm Heart Sounds: S1 normal and S2 normal GI Inspection: normal to inspection Palpation: soft and nontender Percussion: normal to percussion Auscultation: normal bowel sounds Skin General skin exam: no rashes or lesions noted Neuro General: patient alert and patient awake Cognition: normal cognition Speech: speech normal Gait: normal gait Psych Appearance: grossly normal and well kempt Mental Status: mental status grossly normal Speech and Movement: speech and movement normal
[2020-06-28 13:13] VITALS: BP 135/74; PULSE 97; RESP 20; TEMP 36.4; O2SAT 97
--- NOTE | 2020-06-28 13:30 | DI.RAD_ITS ---
EXAM: XR PORTABLE CHEST AP CLINICAL HISTORY: cough, postnasal drip. TECHNIQUE: 2D digital imaging was performed. COMPARISON: CR,RF RF barium swallow from 01/16/2019 FINDINGS: LUNGS: Clear. No pleural abnormality seen. HEART: Normal. MEDIASTINUM: Normal. OTHER FINDINGS: None. IMPRESSION: No acute pulmonary findings. DATA REPOSITORY: RADIATION DOSE DELIVERED: Total DLP
[2020-06-28] MEDS: Lactated Ringers 1,000 ML 1000 ML IV (13:51)
[2020-06-28 13:59] LABS: Abs Immature Grans 0.01 10^3/uL (0.0-0.06); Absolute Basophil Count 0.03 10^3/uL (0.0-0.2); Absolute Eosinophil Count 0.04 10^3/uL (0.0-0.7); Absolute Lymphocyte Count 1.49 10^3/uL (1.2-3.4); Absolute Monocyte Count 0.63 10^3/uL (0.1-0.8); Absolute Neutrophil Count 6.23 10^3/uL (1.2-6.7); Basophils % 0.4; Eosinophils % 0.5; HCT 36.9 % (36.0-46.0); HGB 12.4 g/dL (11.2-15.7); Immature Grans % 0.1; Lymphocytes % 17.7; MCHC 33.6 % (32.0-36.0); MCV 95.1 fL (80-95); MPV 11.1 fL (8.0-11.0); Monocytes % 7.5; Neutrophils % 73.8; Nucleated RBC 0 %; Platelet Count 201 10^3/uL (130-400); RBC 3.88 10^6/uL (3.93-5.22); RDW 12.1 % (11.7-14.6); RDW-SD 42.3 fL; WBC 8.43 10^3/uL (4.4-10.8)
[2020-06-28 14:07] LABS: Magnesium 1.7 mg/dL (1.8-2.4)
[2020-06-28 14:11] LABS: ALT 23 U/L (14-59); AST 23 U/L (15-37); Albumin 3.9 g/dL (3.4-5.0); Alkaline Phosphatase 79 U/L (46-116); Anion Gap 10.5 mmol/L (3-11); BUN 19 mg/dL (7-18); Bilirubin, Total 0.8 mg/dL (0.2-1.0); CO2 25.5 mmol/L (21.0-32.0); CREATININE 1.06 mg/dL (0.55-1.02); Calcium 9.5 mg/dL (8.5-10.1); Chloride 100 mmol/L (98-107); Estimated GFR 51.25 (mL/min/1.73m2); Glucose 92 mg/dL (74-106); Sodium 136 mmol/L (136-145); Total Protein 7.4 g/dL (6.4-8.2)
[2020-06-28 14:24] VITALS: TEMP 36.6
[2020-06-28] MEDS: MAGNESIUM SULFATE 1 GM/100 ML BAG IVPB (14:26)
[2020-06-28 14:45] VITALS: BP 150/65; PULSE 85; RESP 16; O2SAT 98
[2020-06-28] MEDS: Ondansetron 4 MG/2 ML VIAL IVP (14:48)
[2020-06-28] MEDS: Gabapentin 400 MG CAP 800 MG PO (15:08)
--- NOTE | 2020-06-28 15:13 | NUR.NOTE ---
pt c/o nausa and cramps she has been voiding
[2020-06-28 15:28] LABS: Bilirubin Negative (Negative); Blood Negative (Negative); Clarity Clear (Clear); Glucose Negative (Negative); Ketones Trace mg/dL (Negative); Leukocyte Esterase Trace (Negative); Nitrite Negative (Negative); pH 7.5 (5-8)
[2020-06-28 15:39] LABS: Bacteria Rare HPF (Negative); C & S Indicated? Yes; Crystals Negative HPF (Negative); Epithelial Cells Few HPF (Negative); Mucus Negative (Negative); Other Cells Few Transitional (Negative); RBC 0-2 HPF (0-2)
[2020-06-28 15:55] VITALS: BP 140/60; PULSE 85; RESP 16; O2SAT 98
--- NOTE | 2020-06-29 09:48 | NUR.NOTE ---
Referral faxed to [facility] Note:
== END 2020-06-28 16:00 | disposition home or self-care (01) ==
PROVIDERS: Emergency Provider Physician Assistant; PCP Internal Medicine
DX: E86.0 Dehydration (principal); E83.42 Hypomagnesemia; R09.82 Postnasal drip; R11.0 Nausea; I10 Essential (primary) hypertension
CPT/HCPCS: 36415; 80053; 96361; 96365; 96375; 99284; 71045; 81003; 81015; 83735; 85025; 87086; J2405; J3475

== ENCOUNTER 2020-07-06 00:39 | Outpatient (CLI) | payer MEDICARE, OTHER, SELFPAY ==
--- NOTE | 2020-07-06 07:00 | DI.CTLCSR_ITS ---
EXAM: CT CHEST LUNG CANCER SCREEN CLINICAL HISTORY: Screening for lung cancer,FORMER SMOKER, Z87.891 TECHNIQUE: Imaging Protocol: Axial computed tomography images with coronal and sagittal reformatted images were created and reviewed COMPARISON: CT CT CHEST LUNG CANCER SCREEN from 07/12/2019 FINDINGS: Tracheobronchial tree: Patent where visualized. Mediastinum and Amarilis: No dominant adenopathy or fluid collection. Pulmonary parenchyma: No focal consolidation. Scarring or atelectasis is seen in the right middle lo be. Dependent atelectasis is seen in the lung bases. Mild centrilobular emphysematous changes are p resent. Lung Nodules: There is a stable 0.9 cm left lower lobe pulmonary nodule. There is a stable 4 mm righ t middle lobe nodule. There are stable subpleural nodules present. No new pulmonary nodules are felicia ntified. Pleura: No effusion or pneumothorax. Heart: The heart is not dilated. Marked coronary artery calcification is noted. No significant peric ardial effusion. Aorta: Thoracic aorta non-dilated.Atherosclerosis. Upper abdomen: Unremarkable. Bones: Degenerative changes. Postsurgical changes in the left shoulder and cervical spine. Right co nvex scoliosis of the thoracic spine. Soft Tissues: Unremarkable. IMPRESSION: Stable pulmonary nodules. Lung RADS Cat 2 - Benign Appearance / Behavior: Nodules with a very low likelihood of becoming a clin ically active cancer due to size or lack of growth Lung-RADS 1.0 CATEGORIES: Category 0 - Prior chest CT exam(s) being located for comparison. Category 1 - Annual screening in 12 months. No nodules or definitely benign nodules. Category 2 - Annual screening in 12 months. Benign appearance. Nodules with low likelihood of becomin g active cancer. Category 3 - 6-month follow-up. Probably benign. Short-term follow-up suggested. Nodules with low lik elihood of becoming active cancer. Category 4A - 3-month follow-up and CT/PET if >8 mm in size. Suspicious finding. Findings which requi re additional testing. Category 4B - Findings which require additional testing and tissue sampling. Suspicious finding. C Added to Any of the Above - History of prior lung cancer screening. S Added to Any of the Above - Significant unexpected other finding. RADIATION DOSE DELIVERED: 72.2mGy.cm Total DLP 72.2mGy.cm Total DLP 72.2mGy.cm Total DLP DATA REPOSITORY: All CT scans at this facility are submitted to the National Radiology Data Registry (NRDR) Dose Index Registry (DIR) with the [employer] (ACR). RADIATION OPTIMIZATION: All CT scans at this facility use at least one of these dose optimization te chniques: automated exposure control; mA and/or kV adjustment per patient size (includes targeted exa ms where dose is matched to clinical indication); or iterative reconstruction.
== END 2020-07-06 00:59 ==
PROVIDERS: PCP Internal Medicine; Visit Provider Internal Medicine
DX: Z12.2 Encounter for screening for malignant neoplasm of respiratory organs (principal); Z87.891 Personal history of nicotine dependence; R91.8 Other nonspecific abnormal finding of lung field
CPT/HCPCS: G0297

== ENCOUNTER → 2020-07-07 11:15 | Outpatient (BNVA) | payer MEDICARE, OTHER, SELFPAY | PROVIDERS: PCP Internal Medicine; Referring Provider Internal Medicine; Visit Provider Psychiatry & Neurology Neurology | DX: G95.9 Disease of spinal cord, unspecified (principal); M48.061 Spinal stenosis, lumbar region without neurogenic claudication; R20.2 Paresthesia of skin; R25.2 Cramp and spasm; I10 Essential (primary) hypertension | CPT/HCPCS: 99213 ==

== ENCOUNTER → 2020-08-07 12:53 | Outpatient (BNVA) | payer MEDICARE, OTHER, SELFPAY | PROVIDERS: PCP Internal Medicine; Referring Provider Internal Medicine; Visit Provider Urology | DX: C67.9 Malignant neoplasm of bladder, unspecified (principal) | CPT/HCPCS: 52000; 99213 ==

== ENCOUNTER 2020-08-26 15:28 | Outpatient (REF) | payer MEDICARE, OTHER, SELFPAY ==
[2020-08-26 19:42] LABS: HCT 37.7 % (36.0-46.0); HGB 12.2 g/dL (11.2-15.7); MCH 31.7 pg (27.0-33.0); MCHC 32.4 % (32.0-36.0); MCV 97.9 fL (80-95); MPV 11.4 fL (8.0-11.0); Platelet Count 253 10^3/uL (130-400); RBC 3.85 10^6/uL (3.93-5.22); RDW 12.6 % (11.7-14.6); RDW-SD 45.1 fL; WBC 8.42 10^3/uL (4.4-10.8)
[2020-08-26 20:03] LABS: ALT 21 U/L (14-59); AST 24 U/L (15-37); Albumin 3.9 g/dL (3.4-5.0); Alkaline Phosphatase 93 U/L (46-116); Anion Gap 3.4 mmol/L (3-11); BUN 27 mg/dL (7-18); Bilirubin, Total 0.3 mg/dL (0.2-1.0); CO2 30.6 mmol/L (21.0-32.0); CREATININE 1.27 mg/dL (0.55-1.02); Calcium 10.1 mg/dL (8.5-10.1); Chloride 103 mmol/L (98-107); Glucose 88 mg/dL (74-106); Sodium 137 mmol/L (136-145); Total Protein 6.9 g/dL (6.4-8.2)
== END 2020-08-26 15:48 ==
LOC: LBO 15:28
PROVIDERS: PCP Internal Medicine; Visit Provider Internal Medicine
DX: N39.0 Urinary tract infection, site not specified (principal); G95.9 Disease of spinal cord, unspecified; Z01.818 Encounter for other preprocedural examination
CPT/HCPCS: 80053; 85027; 87086

== ENCOUNTER 2020-08-28 02:52 | Outpatient (CLI) | payer MEDICARE, OTHER, SELFPAY ==
[2020-08-29 16:38] LABS: COVID-19 RT-PCR Result NEGATIVE (Negative)
== END 2020-08-28 03:12 ==
PROVIDERS: PCP Internal Medicine; Visit Provider Internal Medicine
DX: Z11.59 Encounter for screening for other viral diseases (principal); Z01.818 Encounter for other preprocedural examination
CPT/HCPCS: U0003

== ENCOUNTER 2020-09-15 00:28 | Outpatient (CLI) | payer MEDICARE, OTHER, SELFPAY ==
--- NOTE | 2020-09-15 14:56 | DI.US_ITS ---
APPROVED REPORT EXAM: Comprehensive 2D, Doppler, and color-flow Echocardiogram Patient Location: Out-Patient [facility] [employer] Attendant: Lyndsay Haney RDCS (AE) Indications: Amaurosis Other Information Study Quality: Adequate Conclusion Left Ventricle : The left ventricle is normal size. The left ventricular systolic function is normal. The left ventricular ejection fraction is within the normal range. There is normal left ventricular wall thickness. There is normal LV segmental wall motion. The left ventricular diastolic function is normal. LVEF is 60-65%. Right Ventricle : The right ventricle is normal size. The right ventricular systolic function is norm al. The RVSP is 21.5 mmHg. Atria : The left atrium size is normal. The right atrium size is normal. Valves: There are no hemodynamically significant valvular lesions. Great Vessels : The aortic root is normal in size. The ascending aorta is normal in size. Aortic arch is not well visualized. IVC is normal in size and collapses >50% with inspiration. Please see remainder of study for further details. Wall motion Left Ventricle The left ventricle is normal size. The left ventricular systolic function is normal. The left ventric ular ejection fraction is within the normal range. There is normal left ventricular wall thickness. T here is normal LV segmental wall motion. The left ventricular diastolic function is normal. There is no ventricular septal defect visualized. LVEF is 60-65%. Right Ventricle The right ventricle is normal size. The right ventricular systolic function is normal. The RVSP is 21 .5 mmHg. Atria The left atrium size is normal. The right atrium size is normal. The interatrial septum is intact wit h no evidence for an atrial septal defect. Aortic Valve The aortic valve is normal in structure. Aortic valve is trileaflet. There is no aortic valvular sten osis. No aortic regurgitation is present. Mitral Valve Mild mitral annular calcification. No evidence of mitral valve stenosis. Trace mitral regurgitation. Tricuspid Valve The tricuspid valve is normal in structure. There is no tricuspid valve stenosis. Mild tricuspid regu rgitation. Pulmonic Valve The pulmonary valve is normal in structure. There is no pulmonic valvular stenosis. There is no pulmo herminia valvular regurgitation. Great Vessels The aortic root is normal in size. The ascending aorta is normal in size. Aortic arch is not well vis ualized. IVC is normal in size and collapses >50% with inspiration. Pericardium There is no pericardial effusion. 2D Dimensions IVSD d PLAX 0.80 cm F: 0.6-1.0 LV Vol A2C d MOD 76.1 mL LVPW d PLAX 0.84 cm F: 0.6 - 1.0 LV Vol A4C d MOD 79.1 mL LVID d PLAX 4.36 cm F: 3.8 - 5.2 LA vol/ BSA A2C s A-L 17.4 mL/m2 LVDs 2.65 cm F: 2.2 - 3.5 LA vol/ BSA A4C s A-L 23.4 mL/m2 Ao Root d 2.72 cm F: 2.7 - 3.3 LA Vol/ BSA Biplane s A-L 20.6 mL/m2 RA Area A4C 9.09 cm2 LA Area A4C s MOD 14.58 cm2 RA Vol/ BSA A4C s A-L 11.5 mL/m2 LA Area A2C s MOD 12.32 cm2 Ao Asc Diam d 3.08 cm F: 2.3 - 3.1 LV EF A4C MOD 60.5 % LV EF Teichholz 69.6 % LV EF A2C MOD 65.0 % LVEF (Murphy's) 63.30 % F: 54 - 74 LV EF Biplane MOD 63.3 % LV Volume 66.33 mL F: 46 - 106 SV 50.76 mL LV Volume Index 43.63 mL/m2 F: 29 - 61 SV Index 33.21 mL/m2 LV Vol Biplane MOD 80.2 mL FS 38.90 % M-Mode TAPSE 1.64 cm (M/F) >1.7 LV Diastology MV E' medial 0.098 (>0.07 m/s) E/A Ratio 0.7 LV E/e MED 5.70 (<14) MV E Vmax 0.56 (0.4-1.3 m/s) MV E' lateral 0.082 (>0.1 m/s) MV A Vmax 0.75 (0.4-1.3 m/s) LV E/e LAT 6.80 (<14) MV E/A Ratio 0.71 MV E/E' medial 5.71 MV E/E' lateral 6.82 Aortic Valve LVOT Area 3.09 cm2 AoV Area Vmax 2.71 cm2 LVOT Vmax 0.93 m/s AoV Area/ BSA (Vmax) 1.77 cm2/m2 LVOT Mean Dae. 0.55 m/s BLAISE Mean Dae. 2.27 cm2 LVOT Peak Grad 3.5 mmHg BLAISE Mean Dae. Index 1.48 cm2/m2 LVOT Mean Grad 1.5 mmHg LVOT VTI 0.154 m LVOT Diam s 1.95 cm AoV Vmax 1.06 m/s Velocity Ratio 0.87 AoV Mean Dae. 0.75 m/s AoV Peak Grad 4.5 mmHg LVOT SV 47.66 mL AoV Mean Grad 2.5 mmHg AoV VTI 0.201 m AoV Area VTI 2.37 cm2 AoV Area/ BSA (VTI) 1.55 cm/m2 Mitral Valve MV DT 233 (160-240 msec) MV PHT 68 msec MV Area PHT 3.25 cm2 MV VTI 0.175 m MV Area VTI 2.72 (4.0-6.0 cm2) Pulmonary Valve PV Vmax 0.77 (0.5-1.5 m/s) RVOT Peak Gr. 2.32 mmHg PV Peak Grad 2.4 mmHg RVOT Mean Gr. 1.05 mmHg PV Mean Grad 1.4 mmHg RVOT VTI 0.129 m PV VTI 0.143 m RVOT Vmax 0.76 m/s Tricuspid Valve TR Peak Grad 18.5 mmHg TR Vmax 2.15 m/s RA Pressure 3.00 mmHg RVSP (TR) 21.5 mmHg
== END 2020-09-15 00:48 ==
PROVIDERS: PCP Internal Medicine; Visit Provider Internal Medicine
DX: G45.3 Amaurosis fugax (principal)
CPT/HCPCS: 93306

== ENCOUNTER 2020-09-24 01:34 | Outpatient (CLI) | payer MEDICARE, OTHER, SELFPAY ==
--- NOTE | 2020-09-24 06:15 | DI.US_ITS ---
EXAM: US CAROTID CLINICAL HISTORY: amaurosis fugax both eyes,g45.3. TECHNIQUE: Ultrasound carotids performed using grayscale, color-flow, and spectral Doppler imaging. COMPARISON: US US ECHOCARDIOGRAM from 09/15/2020 FINDINGS: RIGHT CAROTID ARTERY: Plaque: There is mild focal plaque at the carotid bulb level without evidence of hemodynamically sign ificant stenosis at this level.. There is no significant stenosis in the proximal right internal car otid artery. Velocity elevation: None. LEFT CAROTID ARTERY: Plaque: There is mild-moderate plaque in the distal left common carotid artery and carotid bulb and p roximal left internal carotid artery,. Amount of stenosis is less than 50 percent. Velocity elevation: None. VERTEBRAL ARTERIES: Antegrade flow demonstrated in both vertebral arteries. Measurements: R Bulb: 53.3cm/s PS / 14.1cm/s ED R CCA: 82.3cm/s PS / 21.2cm/s ED R ECA: 74.6cm/s PS / 13.5cm/s ED R ICA Prox: 52.3cm/s PS /18cm/s ED R ICA Mid: 57.4cm/s PS / 14.5cm/s ED R ICA Distal: 49.8cm/s PS /18.2cm/s ED R Vert: 46.7cm/s PS / 15.3cm/s ED R SVR: 0.7 R DVR: 0.68 L Bulb: 47.7cm/s PS /13cm/s ED L CCA: 73cm/s PS / 17.4cm/s ED L ECA: 115.7cm/s PS /16.8cm/s ED L ICA Prox:68.8cm/s PS / 27.2cm/s ED L ICA Mid: 75.2cm/sPS / 27.5cm/s ED L ICA Distal: 88.9cm/s PS / 29.6cm/s ED L Vert: 83.3cm/s PS / 25cm/s ED L SVR: 1.22 L DVR: 1.7 IMPRESSION: Some bilateral plaque as described above, more so on the left side. However, is no hemodynamically s ignificant stenosis. Amount of stenosis is estimated at less than 50 percent. Antegrade flow is demonstrated in both vertebral arteries. Criteria for Carotid Stenosis: Normal: ICA PSV <125 cm/s no plaque or intimal thickening is visible. <50% stenosis: ICA PSV <125 cm/s and plaque or intimal thickening is visible. 50-69% stenosis: ICA PSV is 125-250 cm/s and plaque is visible. >70% stenosis to near occlusion: ICA PSV >250 cm/s with visible plaque and luminal narrowing. DATA REPOSITORY:
== END 2020-09-24 01:54 ==
PROVIDERS: PCP Internal Medicine; Visit Provider Internal Medicine
DX: I65.22 Occlusion and stenosis of left carotid artery (principal)
CPT/HCPCS: 93880

== ENCOUNTER 2020-10-21 11:44 | Outpatient (REF) | payer MEDICARE, OTHER, SELFPAY ==
[2020-10-21 14:26] LABS: ALT 22 U/L (14-59); AST 19 U/L (15-37); Albumin 3.8 g/dL (3.4-5.0); Alkaline Phosphatase 83 U/L (46-116); Anion Gap 3.8 mmol/L (3-11); BUN 32 mg/dL (7-18); Bilirubin, Total 0.3 mg/dL (0.2-1.0); CO2 30.2 mmol/L (21.0-32.0); CREATININE 1.26 mg/dL (0.55-1.02); Calcium 9.4 mg/dL (8.5-10.1); Calculated LDL 75 mg/dL (<100); Chloride 103 mmol/L (98-107); Cholesterol 125 mg/dL (<200); Estimated GFR 41.98 (mL/min/1.73m2); Glucose 103 mg/dL (74-106); HDL Cholesterol 33 mg/dL (40-60); Potassium 4.8 mmol/L (3.5-5.1); Sodium 137 mmol/L (136-145); Triglyceride 88 mg/dL (<150)
[2020-10-21 14:55] LABS: HCT 38.9 % (36.0-46.0); HGB 12.5 g/dL (11.2-15.7); MCH 30.9 pg (27.0-33.0); MCHC 32.1 % (32.0-36.0); MPV 11.7 fL (8.0-11.0); Platelet Count 276 10^3/uL (130-400); RBC 4.05 10^6/uL (3.93-5.22); RDW-SD 46.2 fL; WBC 8.87 10^3/uL (4.4-10.8)
== END 2020-10-21 12:04 ==
LOC: LBO 11:44
PROVIDERS: PCP Internal Medicine; Visit Provider Internal Medicine
DX: E78.00 Pure hypercholesterolemia, unspecified (principal); Z01.818 Encounter for other preprocedural examination
CPT/HCPCS: 80053; 80061; 85027

== ENCOUNTER 2020-10-30 01:57 | Outpatient (CLI) | payer MEDICARE, OTHER, SELFPAY ==
[2020-10-31 11:30] LABS: COVID-19 RT-PCR UVMMC Result Negative (Negative)
== END 2020-10-30 01:58 | disposition home or self-care (01) ==
LOC: LBO 01:57
PROVIDERS: PCP Internal Medicine; Visit Provider Internal Medicine
DX: Z20.822 Contact with and (suspected) exposure to COVID-19 (principal); Z01.818 Encounter for other preprocedural examination
CPT/HCPCS: U0003; U0005

== ENCOUNTER 2020-11-02 12:26 | Outpatient (CLI) | payer MEDICARE, OTHER, SELFPAY ==
[2020-11-02 14:04] LABS: Bilirubin Negative (Negative); Blood Negative (Negative); Clarity Clear (Clear); Glucose Negative (Negative); Ketones Negative (Negative); Leukocyte Esterase Negative (Negative); Nitrite Negative (Negative); Urobilinogen 0.2 EU/dL (Up TO 0.2)
== END 2020-11-02 12:27 | disposition home or self-care (01) ==
PROVIDERS: PCP Internal Medicine; Visit Provider Neurological Surgery
DX: M47.12 Other spondylosis with myelopathy, cervical region (principal); Z01.818 Encounter for other preprocedural examination
CPT/HCPCS: 81003; 87086

== ENCOUNTER 2020-12-01 02:01 | Outpatient (CLI) | payer MEDICARE, OTHER, SELFPAY ==
--- NOTE | 2020-12-01 | DI.RAD_ITS ---
EXAM: XR CERVICAL SPINE 1V CLINICAL HISTORY: S/P ACDF,CERVICAL SPONDYLOSIS WITH MYELOPATHY,M47.12. TECHNIQUE: 2D digital imaging was performed. COMPARISON: MR MR CERVICAL SPINE WO from 04/17/2020 FINDINGS: There are again seen findings of anterior cervical disc fusion from C3 through C5 and again at C5-6. There is persistent mild anterolisthesis of C5 on C6. The bones are osteopenic. Degenerative adan es are seen at C6-C7. There is a right convex curvature of the cervical spine. Degenerative changes of the facets are present. The prevertebral soft tissues are unremarkable. The odontoid is intact. The lateral masses are well aligned. No definite acute fracture or subluxation is noted however, e xamination is limited due to patient positioning and osteopenia. IMPRESSION: DATA REPOSITORY: RADIATION DOSE DELIVERED:
== END 2020-12-01 02:21 ==
PROVIDERS: PCP Internal Medicine; Visit Provider Neurological Surgery
DX: M47.12 Other spondylosis with myelopathy, cervical region (principal); Z98.1 Arthrodesis status
CPT/HCPCS: 72020; 72040

== ENCOUNTER → 2020-12-18 13:01 | Outpatient (BNVA) | payer MEDICARE, OTHER, SELFPAY | PROVIDERS: PCP Internal Medicine; Referring Provider Internal Medicine; Visit Provider Urology | DX: C67.9 Malignant neoplasm of bladder, unspecified (principal) | CPT/HCPCS: 52000; 99212; 99214 ==

== ENCOUNTER 2020-12-21 02:30 | Outpatient (CLI) | payer MEDICARE, OTHER, SELFPAY ==
--- NOTE | 2020-12-21 07:15 | DI.MAMMO_ITS ---
EXAM: MG MAMMO SCREENING CLINICAL HISTORY: screening,Z12.39. TECHNIQUE: Bilateral full field digital CC and MLO mammographic images were obtained with 3D tomosyn thesis and utilizing computer aided detection (CAD). COMPARISON: Prior mammograms dating back to 2011, the most recent being June 2016. FINDINGS: The fibroglandular tissue is moderately dense, this decreasing sensitivity mammogram for finding hidd en underlying lesions. There are no CAD designations. There are no new obvious spiculated masses nor malignant appearing microcalcification groups. There is no significant architectural distortion nor skin thickening-retraction. IMPRESSION: Dense bilateral fibroglandular tissue. No obvious radiographic evidence of malignancy. BI-RADS Category 1 - Negative Breast Density - Category C - Heterogeneously dense Breast density Category C or D implies that the patient has dense breast tissue. Dense breast tissue can make it harder to find cancer on a mammogram. Dense breast tissue is also associated with an incr eased risk of breast cancer. This information about the result of the mammogram report was provided to the patient to raise their awareness. Use this report when you speak with the patient about their risks for breast cancer, which includes their family history. At that time, you may recommend additional screening tests (Ultrasoun d or MRI) as these tests may add significant information. A negative radiographic report should not delay biopsy if a dominant or clinically suspicious mass is present. Up to ten percent of cancers are not identified on mammography. A negative report may reinforce clinical impression. Adenosis and dense breasts may obscure an underlying neoplasm. False positive reports average 6 to 10%. Patient will receive a letter notifying them of these results.
== END 2020-12-21 02:50 ==
PROVIDERS: PCP Internal Medicine; Visit Provider Internal Medicine
DX: Z12.31 Encounter for screening mammogram for malignant neoplasm of breast (principal)
CPT/HCPCS: 77063; 77067

== ENCOUNTER 2021-01-01 02:49 | Outpatient (CLI) | payer MEDICARE, OTHER, SELFPAY ==
[2021-01-01 11:49] LABS: Source Nasal/Nares
[2021-01-03 13:13] LABS: COVID-19 PCR Negative (Negative)
== END 2021-01-01 02:50 | disposition home or self-care (01) ==
LOC: LBO 02:49
PROVIDERS: Internal Medicine Cardiovascular Disease; PCP Internal Medicine; Visit Provider Urology
DX: Z20.828 Contact with and (suspected) exposure to other viral communicable diseases (principal); Z01.818 Encounter for other preprocedural examination
CPT/HCPCS: 87635

== ENCOUNTER 2021-01-04 06:14 | Day surgery (SDC) | payer MEDICARE, OTHER, SELFPAY ==
[2021-01-04 06:41] VITALS: BP 118/65; PULSE 78; RESP 18; TEMP 36.5; O2SAT 98
[2021-01-04] MEDS: Lactated Ringers 1,000 ML 80 ML IV (06:55)
--- NOTE | 2021-01-04 06:57 | HPE_ITS ---
Date of service: 01/04/21 Time of Service: 06:57 Assessment and Plan Assessment and plan (1) Urothelial carcinoma of bladder: Status: Chronic Assessment and plan: For cystoscopy, TURBT and instillation of Mitomycin C into bladder History of Present Illness History of Present Illness Chief Complaint: Bladder cancer Narrative: This is a 70 year old woman who has a history of urothelial cell carcinoma of the bladder. On surveillance cystoscopy recently, we identified a papillary lesion behind the left ureteral orifice. She presents for TURBT. Review of Systems Narrative: No fevers or chills No vision change or dysphasia No diabetes or thyroid No shortness of breath, cough or hemoptysis No chest pain or palpitations No nausea, vomiting, hepatitis, ulcers, jaundice, diarrhea or constipation No seizures, strokes No bleeding disorders or anemia Chronic back pain. No gout PFSH Medical History Cervical myelopathy Community acquired pneumonia Cough Depression (07/01/14) Discharge planning issues DVT prophylaxis Essential hypertension (02/26/13) Hx of bacterial pneumonia Hyperlipidemia Nausea and vomiting Neuropathy Osteoarthritis of spine with radiculopathy, cervical region (09/05/11) Osteopenia (12/14/11) Osteoporosis wrist, osteopenia hip, normal bone density of spine 2017 osteopenia 2012 Peripheral neuropathy (07/01/14) Preoperative examination Spinal stenosis Spinal stenosis, lumbar region without neurogenic claudication (12/14/11) Spinal stenosis, other region (12/14/11) 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 Martinez Arthroplasty of knee Per patient she has not had a TOTAL KNEE Breast, Lumpectomy Cervical spondylosis 11/03/20 C5-[address] Everett Cardoza Day 11/04/20 D/C'd home Colonoscopy - MAC (03/12/18) Colon,transverse,polyp,biopsy - fragment of sessile serrated adenoma. (Dr Neely) H/O cystoscopy (09/06/18) w/transurethral resection of bladder tumors-Dr Wiggins Hemiarthroplasty (09/07/15) L shoulder Dr Luz Repair of umbilical hernia Rotator Cuff Repair S/P cervical spinal fusion (07/31/16) Tenotomy and debridement tendon L shoulder (10/25/17) Family History Father Essential hypertension Glaucoma Alzheimer's dementia Social History (Updated 10/21/20 @ 10:29 by Belén Matthews LPN) Smoking/Tobacco Use Status: Former Tobacco Use Quit Date: 09/25/12 Smoking risk assessment performed?: Yes Alcohol Intake: former Drug use: Daily Substance use type: marijuana Details: marijuana: uses qd. 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 Meds Home Medications and Allergies Allergies Allergy/AdvReac Type Severity Reaction Status Date / Time codeine AdvReac Intermediate Nausea Verified 10/21/20 10:28 hydrochlorothiazide AdvReac Mild hypomagnese Verified 10/21/20 10:28 pop duloxetine AdvReac Other (See Verified 10/21/20 10:28 Comment) narcotics AdvReac Intermediate Nausea, Uncoded 10/21/20 10:28 vomiting Home Medications Medication Instructions Recorded Confirmed Type aspirin [Aspir-Low] 81 mg PO DAILY 09/06/18 01/04/21 History acetaminophen 500 mg capsule 1,000 mg PO BID cap 06/12/19 01/04/21 History multivitamin 1 tab PO HS tab 06/12/19 01/04/21 History selenomethionine 200 mcg tablet 200 mcg PO DAILY 06/12/19 01/04/21 History gabapentin 800 mg tablet 800 mg PO TID #270 tab 12/03/19 01/04/21 Rx calcium carbonate [Tums] 500 mg PO DAILY 04/20/20 01/04/21 History cholecalciferol (vitamin D3) 1,000 unit PO DAILY 04/20/20 01/04/21 History [Vitamin D3] potassium chloride 10 mEq 10 meq PO DAILY #90 cap 05/04/20 01/04/21 Rx capsule,extended release pravastatin 40 mg tablet 40 mg PO DAILY #90 tab 06/16/20 01/04/21 Rx spironolactone 25 mg tablet 25 mg PO DAILY #90 tab 06/16/20 01/04/21 Rx cetirizine 10 mg tablet 10 mg PO BID #180 tab 06/30/20 01/04/21 Rx fluticasone propionate 50 1 spray INTRANASAL BID #15.8 ml 06/30/20 01/04/21 Rx mcg/actuation nasal spray,suspension magnesium oxide 400 mg PO DAILY #90 tab 06/30/20 01/04/21 Rx ondansetron 4 mg disintegrating 4 mg PO DAILY PRN #14 tab 11/18/20 01/04/21 Rx tablet Exam Const General: cooperative and no acute distress Neck Neck: supple Resp Effort & Inspection: normal respiratory effort Auscultation: clear to auscultation bilaterally Cardio Rate: regular rate Rhythm: regular rhythm GI Palpation: soft and no masses Neuro General: patient alert, patient awake and patient oriented x3 Results Last Vital Signs Temp 36.5 C 01/04/21 06:41 Pulse 78 01/04/21 06:41 Resp 18 01/04/21 06:41 BP 118/65 01/04/21 06:41 Pulse Ox 98 01/04/21 06:41 COVID-19 Screening Have you, or household traveled for leisure in last 14 days?: No Had IN PERSON contact w/suspected or confirmed C-19 person: No
[2021-01-04] MEDS: FAMOTIDINE 20 MG/50 ML BAG 50 MG (07:30)
[2021-01-04] MEDS: Lidocaine 2% Jelly 6 ML SYR (07:48)
--- NOTE | 2021-01-04 07:50 | BLADDER_PTH ---
PATIENT: Belén Velasquez LOC: [facility] U#:[id number] AGE/SX: 70/F ROOM: RE01/04/[address]: Davian Wiggins MD : 1950 BED: DIS: 01/04/2021 SPEC #: [id number] RECD: 01/04/21 11:04 STATUS: YUMI RE #: [id number] MELODIE: 01/04/21 07:[address]: Davian Wiggins DEPT: Surgical Specimen RECD BY: Юлия Bland ENTERED: 01/04/21 11:04 SP TYPE: Bladder OTHR DR: Mary Dorsey MD Tissues: 1 - BLADDER BIOPSY Procedures: GROSS AND MICRO LEVEL 4 Comments: [id number]
--- NOTE | 2021-01-04 08:20 | W.PM.DSUDISC ---
Discharge Plan Disposition Patient Disposition: HOME Condition: Stable Discharge Details Reason For Visit: Bladder cancer Attending Provider: Davian Wiggins Primary Care Provider: Mary Dorsey Home Meds and New Rx's Prescriptions: No Action cetirizine [Zyrtec] 10 mg tablet 10 mg PO BID Qty: 180 RF: 3 fluticasone propionate 50 mcg/actuation spray,suspension 1 spray intranasal BID Qty: 15.8 RF: 5 magnesium oxide 400 mg magnesium tablet 400 mg PO DAILY Qty: 90 RF: 3 gabapentin 800 mg tablet 800 mg PO TID Qty: 270 RF: 3 acetaminophen 500 mg capsule 1,000 mg PO BID RF: 0 selenomethionine 200 mcg tablet 200 mcg PO DAILY RF: 0 multivitamin [Daily Multi-Vitamin] Tablet 1 tab PO HS RF: 0 potassium chloride 10 mEq capsule, extended release 10 meq PO DAILY Qty: 90 RF: 2 Hold Instructions: Home Medication placed on hold at Doctor's office pravastatin 40 mg tablet 40 mg PO DAILY Qty: 90 RF: 3 spironolactone 25 mg tablet 25 mg PO DAILY Qty: 90 RF: 3 ondansetron 4 mg tablet,disintegrating 4 mg PO DAILY PRN (Reason: nausea and vomiting) Qty: 14 RF: 3 calcium carbonate [Tums] 200 mg calcium (500 mg) Tablet,Chewable 500 mg PO DAILY RF: 0 cholecalciferol (vitamin D3) [Vitamin D3] 25 mcg (1,000 unit) Capsule 1,000 unit PO DAILY RF: 0 aspirin [Aspir-Low] 81 mg Tablet,Delayed Release (Dr/Ec) 81 mg PO DAILY RF: 0 Discharge Instructions Additional Instructions: Leave rayo catheter clamped for 1 to 2 hours then unclamp, drain Mitomycin and remove rayo Followup 2 weeks for pathology result Activity:: Activity as Tolerated Shower/Bathe:: 24 hours Diet:: As Tolerated Discharge Orders Discharge Orders: Discharge Order (Routine); Ordered 01/04/21 Ordered By: Davian Wiggins DS: Diagnosis Discharge Diagnosis (1) Urothelial carcinoma of bladder: Status: Chronic
--- NOTE | 2021-01-04 08:23 | ROE_ITS ---
Date of service: 01/04/21 Time of Service: 08:24 Operative Note Operative Note DATE OF PROCEDURE: 01/04/21 PRE-OP DIAGNOSIS: Bladder tumor POST-OP DIAGNOSIS: same PROCEDURE: Cystroscopy, TUR Bladder tumor, Instill Mitomycin c into bladder SURGEON: Daivan Wiggins ANESTHESIA TYPE: General LMA/ETT Refer to Anesthesia Record ESTIMATED BLOOD LOSS: 10 PATHOLOGY: other (Bladder tumor) COMPLICATIONS: None Patient was transported to: same day Patient's condition: stable Implants: 16 lithuanian rayo with 10 cc in balloon Indications: 70-year-old woman who has a history of low-grade noninvasive urothelial cell carcinoma of the bladder. We identified a recurrence on surveillance cystoscopy. She presents for transurethral resection and instillition of chemotherapy into the bladder. Findings: Papillary lesion behind left ureteral orifice Procedure Description: Was brought to the operating room on 01/04/2021. After successful induction of general anesthesia, she was placed in the dorsolithotomy position. Her genitalia was prepped and draped. She was given preoperative IV antibiotics. Xylocaine jelly was instilled into her urethra to act as a local anesthetic. A 24 German resectoscope sheath was passed through the urethra into the bladder. A papillary lesion was seen just posterior to the left ureteral orifice. The lesion measured less than 2 cm in largest dimension. Using bipolar cautery and an Eglesius resectoscope, we resected the tumor in its entirety. The resected tissue was evacuated and sent to pathology for permanent section. The base of the resection site was cauterized. The scope was removed. A 16 German Rayo catheter was then passed through the urethra into the bladder. The catheter balloon was inflated with 10 cc of sterile water. The bladder was drained. We then instilled a solution of 40 mg of mitomycin-C mixed in 40 mL of saline the bladder. The catheter was clamped leaving the solution in place. The patient was then taken to the day surgery unit in stable condition.
[2021-01-04 09:00] VITALS: BP 145/83; PULSE 71; RESP 16; TEMP 36.5; O2SAT 100
[2021-01-04] MEDS: Phenazopyridine 200 MG TAB PO (09:36)
[2021-01-04 10:17] VITALS: BP 150/81; PULSE 78; RESP 16; TEMP 36.5; O2SAT 99
== END 2021-01-04 10:32 | disposition home or self-care (01) ==
PROVIDERS: PCP Internal Medicine; Visit Provider Urology
PROC: 0TBB8ZZ Excision of Bladder, Via Natural or Artificial Opening Endoscopic (ICD-10-PCS; CPT 52234; principal; 2021-01-04 07:30)
DX: C67.9 Malignant neoplasm of bladder, unspecified (principal); I10 Essential (primary) hypertension; K21.9 Gastro-esophageal reflux disease without esophagitis
CPT/HCPCS: 52234; 51720; 88305; NC; J0690; J2001; J2704; J9280

== ENCOUNTER → 2021-01-11 11:24 | Outpatient (BNVA) | payer MEDICARE, OTHER, SELFPAY | PROVIDERS: PCP Internal Medicine; Referring Provider Internal Medicine; Visit Provider Psychiatry & Neurology Neurology | DX: G95.89 Other specified diseases of spinal cord (principal); R20.2 Paresthesia of skin; R25.2 Cramp and spasm; M25.522 Pain in left elbow; M48.061 Spinal stenosis, lumbar region without neurogenic claudication | CPT/HCPCS: 99214 ==

== ENCOUNTER → 2021-01-19 10:56 | Outpatient (BNVA) | payer MEDICARE, OTHER, SELFPAY | PROVIDERS: PCP Internal Medicine; Referring Provider Internal Medicine; Visit Provider Urology | DX: C67.9 Malignant neoplasm of bladder, unspecified (principal); Z98.890 Other specified postprocedural states | CPT/HCPCS: 99213 ==

== ENCOUNTER → 2021-01-25 10:48 | Outpatient (BNVA) | payer MEDICARE, OTHER, SELFPAY | PROVIDERS: PCP Internal Medicine; Referring Provider Internal Medicine; Visit Provider Surgery | DX: L90.5 Scar conditions and fibrosis of skin (principal); L85.8 Other specified epidermal thickening | CPT/HCPCS: 11403; 99202 ==

== ENCOUNTER 2021-01-25 12:35 | Outpatient (REF) | payer MEDICARE, OTHER, SELFPAY ==
--- NOTE | 2021-01-25 11:29 | SKI_PTH ---
PATIENT: Belén Velasquez LOC: [facility] U#:[id number] AGE/SX: 70/F ROOM: RE01/25/[address]: Osiris White : 1950 BED: DIS: 01/25/2021 SPEC #: [id number] RECD: 01/25/21 13:10 STATUS: YUMI REAnthony #: [id number] MELODIE: 01/25/21 11:[address]: Osiris White DEPT: Surgical Specimen RECD BY: Юлия Bland ENTERED: 01/25/21 13:11 SP TYPE: MACY ZEE DR: Mary Dorsey MD Tissues: 1 - SKIN BIOPSY(SHAVE/PUNCH) Procedures: SKIN LEVEL 4 Comments: [id number]
== END 2021-01-25 12:36 | disposition home or self-care (01) ==
LOC: LBN 12:35
PROVIDERS: PCP Internal Medicine; Visit Provider Surgery
DX: L90.5 Scar conditions and fibrosis of skin (principal); L85.8 Other specified epidermal thickening; L28.1 Prurigo nodularis
CPT/HCPCS: 88305

== ENCOUNTER 2021-01-27 02:00 | Outpatient (CLI) | payer MEDICARE, OTHER, SELFPAY ==
--- NOTE | 2021-01-27 | DI.RAD_ITS ---
Exam(s) XR CERVICAL SPINE 1V EXAM: XR CERVICAL SPINE 1V CLINICAL HISTORY: S/P CERVICAL SPINE FUSION,Z98.1. TECHNIQUE: 2D digital imaging was performed. COMPARISON: CR XR CERVICAL SP SALCIDO TRAUMA 2-3V from 12/01/2020 FINDINGS: Ordering physician requested only a lateral view of the cervical spine. There is again seen an anterior cervical fusion from C3 through C5 which appears stable. There is al so cervical disc fusion at C5 and C6. There is stable anterolisthesis of C5 on C6. Degenerative ritu nges are present in the cervical spine. Prevertebral soft tissues are unremarkable. IMPRESSION: Stable alignment of the postsurgical cervical spine on the lateral view. DATA REPOSITORY: RADIATION DOSE DELIVERED:
== END 2021-01-27 02:20 ==
PROVIDERS: PCP Internal Medicine; Visit Provider Neurological Surgery
DX: Z98.1 Arthrodesis status (principal); M47.812 Spondylosis without myelopathy or radiculopathy, cervical region
CPT/HCPCS: 72020

== ENCOUNTER → 2021-02-04 14:27 | Outpatient (BNVA) | payer MEDICARE, OTHER, SELFPAY | PROVIDERS: PCP Internal Medicine; Referring Provider Internal Medicine; Visit Provider Physical Therapy Assistant | DX: Z48.817 Encounter for surgical aftercare following surgery on the skin and subcutaneous tissue (principal) ==

== ENCOUNTER → 2021-02-10 14:48 | Outpatient (BNVA) | payer MEDICARE, OTHER, SELFPAY | PROVIDERS: PCP Internal Medicine; Referring Provider Internal Medicine; Visit Provider Surgery | DX: Z48.02 Encounter for removal of sutures (principal); L89.311 Pressure ulcer of right buttock, stage 1 | CPT/HCPCS: 99211 ==

== ENCOUNTER 2021-02-23 01:32 | Outpatient (CLI) | payer MEDICARE, OTHER, SELFPAY ==
--- NOTE | 2021-02-23 14:56 | DI.MRI_ITS ---
Exam(s) MR LUMBAR SPINE WO EXAM: MR LUMBAR SPINE WO CLINICAL HISTORY: LUMBAR SPONDYLOSIS, M47.816. TECHNIQUE: Multiplanar multisequence MRI was performed. COMPARISON: MR MR LUMBAR SPINE WO from 03/10/2020 MR MR LUMBAR SPINE WO from 03/10/2020 FINDINGS: MR examination lumbosacral spine was performed according to the usual protocol. Current examination is compared with prior lumbar MRI of February 2020. No significant bony signal abnormality seen. There is marked loss of height of the intervertebral di sc space at L4-5. There are prominent facet hypertrophic changes at L3-4 L4-5 and L5-S1. no significant findings at T11-12, T12-L1, L1-2, or L2-3. The conus medullaris appears intact. At L3-4, there is a prominent disc bulge and associated broad-based disc herniation. There is promin ence of the facet joints bilaterally. The combination of these factors causes a severe central canal spinal stenosis at this level. The degree of central canal spinal stenosis has worsened since the p rior examination of February 2020. There is narrowing of the neural foramina, right greater than left, a t this level. At L4-5, the aforementioned loss of disc height is noted consistent with disc degeneration. There is facet hypertrophy. There is a mild central canal spinal stenosis and bilateral lateral recess steno sis. There is bilateral neural foraminal narrowing left greater than right at this level. At L5-S1, there is a moderate disc bulge. There is no significant disc herniation, central canal spi nal stenosis, or neural foraminal stenosis. IMPRESSION: Increased severity of central canal spinal stenosis at L3-4 since prior examination of February 2020. No other significant findings seen. Please see above discussion of findings at individual vertebral levels. DATA REPOSITORY:
== END 2021-02-23 01:52 ==
PROVIDERS: PCP Internal Medicine; Visit Provider Neurological Surgery
DX: M47.816 Spondylosis without myelopathy or radiculopathy, lumbar region (principal); M48.061 Spinal stenosis, lumbar region without neurogenic claudication
CPT/HCPCS: 72148

== ENCOUNTER → 2021-03-11 09:42 | Outpatient (BNVA) | payer MEDICARE, OTHER, SELFPAY | PROVIDERS: PCP Internal Medicine; Referring Provider Internal Medicine; Visit Provider Student in an Organized Health Care Education/Training Program | DX: M70.61 Trochanteric bursitis, right hip (principal); M19.012 Primary osteoarthritis, left shoulder | CPT/HCPCS: 20610; 99213; J1040 ==

== ENCOUNTER → 2021-04-12 11:14 | Outpatient (BNVA) | payer MEDICARE, OTHER, SELFPAY | PROVIDERS: PCP Internal Medicine; Visit Provider Psychiatry & Neurology Neurology | DX: G95.9 Disease of spinal cord, unspecified (principal); M48.061 Spinal stenosis, lumbar region without neurogenic claudication; R20.2 Paresthesia of skin; R25.2 Cramp and spasm; F43.21 Adjustment disorder with depressed mood; N25.89 Other disorders resulting from impaired renal tubular function; M25.522 Pain in left elbow | CPT/HCPCS: 99214 ==

== ENCOUNTER → 2021-04-22 13:26 | Outpatient (BNVA) | payer MEDICARE, OTHER, SELFPAY | PROVIDERS: PCP Internal Medicine; Referring Provider Internal Medicine; Visit Provider Physical Therapy Assistant | DX: Z48.02 Encounter for removal of sutures (principal) ==

== ENCOUNTER 2021-06-15 13:30 | Outpatient (CLI) | payer MEDICARE, OTHER, SELFPAY ==
--- NOTE | 2021-06-15 13:30 | RT.EKG_ITS ---
APPROVED REPORT Exam: Resting ECG Reason for Exam: pre op exam Patient Location: O HR:68 bpm ECG Measurements Heart Rate 68 AXIS AL 140 P 65 QRSd 76 QRS 53 QT 434 T -19 QTc 462 Conclusion Sinus rhythm...normal P axis, V-rate 60- 99 Normal Electrocardiogram
== END 2021-06-15 13:31 | disposition home or self-care (01) ==
LOC: DI.KIM 13:31
PROVIDERS: PCP Internal Medicine; Visit Provider Internal Medicine
DX: Z01.811 Encounter for preprocedural respiratory examination (principal)
CPT/HCPCS: 93010

== ENCOUNTER 2021-06-24 09:31 | Outpatient (CLI) | payer MEDICARE, OTHER, SELFPAY ==
[2021-06-24 15:15] LABS: Abs Immature Grans 0.02 10^3/uL (0.0-0.06); Absolute Basophil Count 0.04 10^3/uL (0.0-0.2); Absolute Eosinophil Count 0.32 10^3/uL (0.0-0.7); Absolute Lymphocyte Count 2.31 10^3/uL (1.2-3.4); Absolute Neutrophil Count 5.39 10^3/uL (1.2-6.7); Basophils % 0.5; Eosinophils % 3.7; HCT 37.1 % (36.0-46.0); HGB 11.7 g/dL (11.2-15.7); Immature Grans % 0.2; Lymphocytes % 26.6; MCH 29.5 pg (27.0-33.0); MCHC 31.5 % (32.0-36.0); MCV 93.5 fL (80-95); MPV 10.4 fL (8.0-11.0); Monocytes % 6.9; Neutrophils % 62.1; Nucleated RBC 0 %; Platelet Count 211 10^3/uL (130-400); RBC 3.97 10^6/uL (3.93-5.22); RDW 14.6 % (11.7-14.6); RDW-SD 50.4 fL; WBC 8.68 10^3/uL (4.4-10.8)
[2021-06-24 16:25] LABS: ALT 29 U/L (14-59); AST 26 U/L (15-37); Albumin 3.9 g/dL (3.4-5.0); Alkaline Phosphatase 98 U/L (46-116); Anion Gap 7.6 mmol/L (3-11); BUN 21 mg/dL (7-18); Bilirubin, Total 0.4 mg/dL (0.2-1.0); CO2 29.4 mmol/L (21.0-32.0); CREATININE 0.9 mg/dL (0.55-1.02); Calcium 9.3 mg/dL (8.5-10.1); Chloride 104 mmol/L (98-107); Glucose 90 mg/dL (74-106); Potassium 3.9 mmol/L (3.5-5.1); Sodium 141 mmol/L (136-145); Total Protein 7.3 g/dL (6.4-8.2)
== END 2021-06-24 09:32 | disposition home or self-care (01) ==
LOC: LBO 09:34
PROVIDERS: PCP Internal Medicine; Visit Provider Neurological Surgery
DX: Z01.818 Encounter for other preprocedural examination (principal)
CPT/HCPCS: 36415; 80053; 85025

== ENCOUNTER 2021-08-11 13:19 | Outpatient (CLI) | payer MEDICARE, OTHER, SELFPAY ==
--- NOTE | 2021-08-11 13:00 | DI.RAD_ITS ---
Exam(s) XR SHOULDER LT COMPLETE 2+V EXAM: XR SHOULDER LT COMPLETE 2+V CLINICAL HISTORY: left shoulder pain TECHNIQUE: COMPARISON: CR XR shoulder LT complete 2+V from 01/22/2019 FINDINGS: Four views were obtained. There is a humeral head prosthesis position. This appears situated in and in the glenoid fossa. No significant change in alignment comparison with previous examination December 2018. IMPRESSION: RADIATION DOSE DELIVERED: Total DLP
== END 2021-08-11 13:20 | disposition home or self-care (01) ==
LOC: DIORS 13:19
PROVIDERS: PCP Internal Medicine; Referring Provider Internal Medicine; Visit Provider Student in an Organized Health Care Education/Training Program
DX: M25.512 Pain in left shoulder (principal); M19.012 Primary osteoarthritis, left shoulder; Z96.612 Presence of left artificial shoulder joint
CPT/HCPCS: 99214; 73030

== ENCOUNTER → 2021-08-16 11:04 | Outpatient (BNVA) | payer MEDICARE, OTHER, SELFPAY | PROVIDERS: PCP Internal Medicine; Referring Provider Internal Medicine; Visit Provider Psychiatry & Neurology Neurology | DX: M48.061 Spinal stenosis, lumbar region without neurogenic claudication (principal); M25.522 Pain in left elbow; G95.9 Disease of spinal cord, unspecified; R20.2 Paresthesia of skin; R25.2 Cramp and spasm; F43.21 Adjustment disorder with depressed mood | CPT/HCPCS: 99213 ==

== ENCOUNTER 2021-08-26 00:53 | Outpatient (CLI) | payer MEDICARE, OTHER, SELFPAY ==
--- OUTSIDE RECORDS SUMMARY | 2021-08-26 00:55 | XMS_ITS ---
:1950 Author Care Team Providers Name Role Phone DR. RACHEL SCANLON Primary Care Provider [phone] DR. RACHEL SCANLON Referring Provider [phone] DR. VIVIANE YAÑEZ Referring Provider [phone] Allergies Code Code Name Reaction Severity Status Onset System 2670 RxNorm Codeine Nausea Moderate to Active ? Severe 5487 RxNorm Hydrochlorothiazide ? ? Active ? Notes: narcotics--nasea/vomiting Medications Name Status Start Date Stop Date ? ? alprazolam 0.25 mg tablet Completed ? 2015 Take 1 tablet as needed by oral route. amlodipine 2.5 mg tablet Completed ? 016 amlodipine 5 mg tablet Active ? Not avail able Take 1 tablet every day by oral route. amoxicillin 500 mg capsule Completed ? 07/14 aspirin 81 mg tablet,delayed release Active ? Not available Take 1 tablet every day by oral route. atenolol 50 mg tablet Completed ? 10/24/2019 Take 0.5 tablets every day by oral route at bedtime. calcium carbonate 600 mg-vitamin D3 10 mcg (400 unit) tablet Act rolly ? Not available Take 1 tablet every day by oral route. calcium phosphate 600 mg-vit D3 500 unit-magnesium oxide 50 mg t ablet Active ? Not available Take 1 tablet twice a day by oral route. ciclopirox 0.77 % topical suspension Active ? Not available APPLY TO THE AFFECTED AND SURROUNDING A REAS OF SKIN BY TOPICAL ROUTE 2 TIMES PER DAY IN THE MORNING AND EVENING flaxseed oil 1,000 mg capsule Completed ? Take 1 capsule every day by oral route. folic acid 400 mcg tablet Completed ? 2019 Take 1 tablet every day by oral route. gabapentin 300 mg capsule Completed ? 2019 2 tababs in the am 1 tab midday and 2 tabs at bedtime gabapentin 800 mg tablet Active ? Not neftaly ilable Take 1 tablet 3 times a day by oral route. garlic 1 mg capsule Completed ? 03/12/2019 Take 1 capsule every day by oral route. hydrochlorothiazide 12.5 mg tablet Completed ? 07/14/2016 hydrochlorothiazide 25 mg tablet Completed ? 07/14/2016 hydrocodone 5 mg-acetaminophen 325 mg Completed ? 07/14/2016 tablet magnesium 400 mg (as magnesium oxide) capsule Completed ? 07/14/2016 Take 1 capsule every day by oral route. multivitamin Active ? Not available one daily naproxen sodium 220 mg tablet Completed ? Take 2 tablets every 12 hours by oral route as needed. oxycodone-acetaminophen 5 mg-325 mg Completed ? 07/14/2016 tablet potassium chloride Active ? Not available 10 meq take one tablet once a day. pravastatin 40 mg tablet Active ? Not neftaly ilable Take 1 tablet every day by oral route. prednisone 10 mg tablet Completed ? 04/11/20 17 ranitidine 150 mg tablet Completed ? 020 Take 1 tablet twice a day by oral route. selenium 200 mcg capsule Active ? Not neftaly ilable Take 1 capsule every day by oral route. triamcinolone acetonide 0.5 % topical Completed ? 04/11/2017 ointment Tylenol PM Extra Strength 25 mg-500 mg tablet Active ? Not available Take 2 tablets every day by oral route at bedtime. Vitamin B12 Completed ? 07/09/2020 Vitamin B6 Completed ? 07/09/2020 vitamin E 400 unit capsule Active ? Not a vailable Take 1 capsule every day by oral route. Zyrtec 10 mg tablet Active ? Not availabl e Take 1 tablet every day by oral route. Problems Name Status Onset Date Source ? Depressive Disorder Active 07/13/2016 ? Peripheral Nerve Disease Active 07/13/2016 ? Hypertensive Disorder Active 07/13/2016 ? Claudication Active 07/13/2016 ? Instability of Joint Active 07/13/2016 ? Shoulder Pain Active 07/13/2016 ? Spinal Stenosis Active 07/13/2016 ? Capsulitis Active 07/13/2016 ? Osteopenia Active 07/13/2016 ? Procedures None recorded. Results Lab Results None recorded. Past Encounters 10/26/2020 Onychomycosis of Toenails; Ingrowing Toe nail; Pain of Toe of Right Foot; Pain of Toe of Left Foot; Bilateral Atherosclerosis of Arteries of Lower Limbs MARIUSZ TrevizoM: [address] [place] [address], Ph. 07/09/2020 Bilateral Atherosclerosis of Arteries of Lower Limbs; Onychomycosis of Toenails Sharron Amaral, DPM: [address] [place] [address], Ph. 04/08/2020 Viviane Yañez: [address] [place] [address], Ph. Social History Tobacco Smoking Status Heavy Tobacco Smoker (1 pack Notes: Patient has quit per day) since 03/12/20 Vaccine List None recorded. Plan of Care Patient Instructions Continue use of ciclopirox continue the course of treatment. Reminders Provider Appointments None recorded. ? ? Lab None recorded. ? ? Referral None recorded. ? ? Procedures None recorded. ? ? Surgeries None recorded. ? ? Imaging None recorded. ? ? Vitals 10/26/2020 11:45AM Foot Care Height Weight BMI Blood Pressure 158.12 cm 61.23 kg 24.5 kg/m2 138/74 mm[Hg] 07/09/2020 09:45AM Foot Care Height Weight BMI 158.12 cm 61.23 kg 24.5 kg/m2 04/08/2020 10:45AM FOLLOW UP Height Weight BMI Blood Pressure 158.12 cm 61.23 kg 24.5 kg/m2 142/80 mm[Hg] 10/23/2019 01:15PM Foot Care Height Weight BMI Blood Pressure 158.12 cm 61.23 kg 24.5 kg/m2 142/80 mm[Hg] 03/12/2019 10:45AM Foot Care Height Weight BMI Blood Pressure 158.12 cm 61.23 kg 24.5 kg/m2 132/58 mm[Hg] 06/27/2018 02:30PM Foot Care Height Weight BMI Blood Pressure 158.12 cm 61.23 kg 24.5 kg/m2 124/62 mm[Hg] 01/15/2018 11:45AM Foot Care Height Weight BMI Blood Pressure 158.12 cm 61.23 kg 24.5 kg/m2 118/58 mm[Hg] 08/21/2017 09:45AM Foot Care Weight Blood Pressure 61.23 kg 124/68 mm[Hg] 06/13/2017 09:45AM Foot Care Blood Pressure 130/70 mm[Hg] 04/11/2017 03:30PM Foot Care Weight Blood Pressure 61.23 kg 128/62 mm[Hg] 07/14/2016 02:30PM NEW PATIENT Weight Blood Pressure 61.23 kg 100/50 mm[Hg]
--- NOTE | 2021-08-26 06:45 | DI.CT_ITS ---
Exam(s) CT UPPER EXTREMITY LT WO EXAM: CT UPPER EXTREMITY LT WO CLINICAL HISTORY: Surgery planning,ARTHRITIS LT GLENOHUMERAL JOINT,M19.012 TECHNIQUE: Imaging Protocol: Axial computed tomography images with coronal and sagittal reformatted images were created and reviewed. CONTRAST MATERIAL: None COMPARISON: CR XR SHOULDER LT COMPLETE 2+V from 08/11/2021 FINDINGS: OSSEOUS: There is a left humeral head prosthesis. No obvious loosening nor radiographic evidence of osteomyel itis. There are calcified loose bodies evident in the glenohumeral joint region, the largest of thes e being in the inferior recess and measuring 1.4 x 1.0 cm. The prosthesis appears to be riding high in the glenoid fossa, with the inferior aspect of the articu lar surface component located 1.2 cm above the inferior aspect of the osseous glenoid, possibly signi ficant. The patient's arm is down by his side during this study. IMPRESSION: Left humeral head prosthesis position in the osseous glenoid appears somewhat high riding, as describ ed above. No evidence of fracture or loosening. No radiographic evidence of osteomyelitis RADIATION DOSE DELIVERED: 320.79mGy.cm Total DLP DATA REPOSITORY: All CT scans at this facility are submitted to the National Radiology Data Registry (NRDR) Dose Index Registry (DIR) with the [employer] (A[employer]). RADIATION OPTIMIZATION: All CT scans at this facility use at least one of these dose optimization te chniques: automated exposure control; mA and/or kV adjustment per patient size (includes targeted exa ms where dose is matched to clinical indication); or iterative reconstruction.
== END 2021-08-26 01:13 ==
PROVIDERS: PCP Internal Medicine; Visit Provider Student in an Organized Health Care Education/Training Program
DX: M19.012 Primary osteoarthritis, left shoulder (principal); M24.012 Loose body in left shoulder
CPT/HCPCS: 36415; 85652; 73200; 85025; 86140

== ENCOUNTER 2021-08-26 02:10 | Outpatient (CLI) | payer MEDICARE, OTHER, SELFPAY ==
[2021-08-26 09:40] LABS: Abs Immature Grans 0.04 10^3/uL (0.0-0.06); Absolute Basophil Count 0.05 10^3/uL (0.0-0.2); Absolute Eosinophil Count 0.25 10^3/uL (0.0-0.7); Absolute Lymphocyte Count 1.75 10^3/uL (1.2-3.4); Absolute Monocyte Count 0.73 10^3/uL (0.1-0.8); Absolute Neutrophil Count 7.55 10^3/uL (1.2-6.7); Basophils % 0.5; Eosinophils % 2.4; HCT 34.1 % (36.0-46.0); HGB 10.7 g/dL (11.2-15.7); Immature Grans % 0.4; Lymphocytes % 16.9; MCH 29.5 pg (27.0-33.0); MCHC 31.4 % (32.0-36.0); MCV 93.9 fL (80-95); MPV 9.8 fL (8.0-11.0); Neutrophils % 72.8; Nucleated RBC 0 %; Platelet Count 313 10^3/uL (130-400); RBC 3.63 10^6/uL (3.93-5.22); RDW 13.7 % (11.7-14.6); RDW-SD 47.4 fL; WBC 10.37 10^3/uL (4.4-10.8)
[2021-08-26 09:44] LABS: ESR 37 mm/hr (0-30)
[2021-08-26 10:38] LABS: C-Reactive Protein 1.01 mg/dL (0.0-0.3)
== END 2021-08-26 02:11 | disposition home or self-care (01) ==
LOC: LBO 02:10
PROVIDERS: PCP Internal Medicine; Visit Provider Student in an Organized Health Care Education/Training Program
DX: M19.012 Primary osteoarthritis, left shoulder; M75.102 Unspecified rotator cuff tear or rupture of left shoulder, not specified as traumatic; M25.512 Pain in left shoulder
CPT/HCPCS: 36415; 85652; 85025; 86140

== ENCOUNTER → 2021-08-31 10:31 | Outpatient (BNVA) | payer MEDICARE, OTHER, SELFPAY | PROVIDERS: PCP Internal Medicine; Referring Provider Internal Medicine; Visit Provider Student in an Organized Health Care Education/Training Program | DX: M19.012 Primary osteoarthritis, left shoulder (principal); Z96.612 Presence of left artificial shoulder joint | CPT/HCPCS: 99214 ==

== ENCOUNTER 2021-09-07 01:22 | Outpatient (CLI) | payer MEDICARE, OTHER, SELFPAY ==
--- NOTE | 2021-09-07 08:00 | DI.CTLCSR_ITS ---
Exam(s) CT CHEST LUNG CANCER SCREEN EXAM: CT CHEST LUNG CANCER SCREEN CLINICAL HISTORY: Screening for lung cancer,CURRENT SMOKER, F17.210 TECHNIQUE: Imaging Protocol: Axial computed tomography images with coronal and sagittal reformatted images were created and reviewed COMPARISON: CT CT CHEST LUNG CANCER SCREEN from 07/06/2020 FINDINGS: Tracheobronchial tree: Diffuse bronchial wall thickening is seen particularly in the lower lobes. Th ere is mucous plugging seen in the lower lobes bilaterally. Pulmonary parenchyma: There has developed a diffuse predominantly lower lobe reticular nodular infilt rate. Small focal areas of consolidation are seen in the lower lobes. Mild centrilobular emphysemat ous changes are present. Lung Nodules: There is again seen a 9 mm nodule in the lateral aspect of the left lower lobe. There is a stable 4 mm nodule in the lateral aspect of the right middle lobe. Mediastinum and Amarilis: No dominant adenopathy or fluid collection. The esophagus is unremarkable. Thyroid gland: Unremarkable. Lymph nodes: Unremarkable. Pleura: No effusion or pneumothorax. Heart: The heart is not dilated. Coronary artery calcifications are present. No pericardial effusion . Aorta: Thoracic aorta non-dilated.Atherosclerosis. Upper abdomen: Unremarkable. Soft Tissues: Unremarkable. Bones: Within normal limits. Anterior cervical disc fusion is seen in the in the lower cervical spine . IMPRESSION: 1. Stable pulmonary nodules. 2. New reticular nodular predominantly lower lobe infiltrate. The infiltrate has somewhat of a perib ronchovascular distribution. Differential considerations include non-specific interstitial pneumonia , usual interstitial pneumonia, hypersensitivity pneumonitis, neoplasm, sarcoidosis or pulmonary pacheco a. 3. Focal areas of consolidation involving predominantly the right lower lobe. This may represent pne umonia or atelectasis. 4. Bronchial wall thickening and mucous plugging. Lung RADS Cat 2 - Benign Appearance / Behavior: Nodules with a very low likelihood of becoming a clin ically active cancer due to size or lack of growth Modifier S Lung-RADS 1.0 CATEGORIES: Category 0 - Prior chest CT exam(s) being located for comparison. Category 1 - Annual screening in 12 months. No nodules or definitely benign nodules. Category 2 - Annual screening in 12 months. Benign appearance. Nodules with low likelihood of becomin g active cancer. Category 3 - 6-month follow-up. Probably benign. Short-term follow-up suggested. Nodules with low lik elihood of becoming active cancer. Category 4A - 3-month follow-up and CT/PET if >8 mm in size. Suspicious finding. Findings which requi re additional testing. Category 4B - Findings which require additional testing and tissue sampling. Suspicious finding. Modifier S- Potentially clinically significant finding. (Non lung cancer) RADIATION DOSE DELIVERED: 74.69mGy.cm Total DLP 1.84mGy CTDIvol 74.69mGy.cm Total DLP 1.84mGy CTDIvol DATA REPOSITORY: All CT scans at this facility are submitted to the National Radiology Data Registry (NRDR) Dose Index Registry (DIR) with the [employer] (ACR). RADIATION OPTIMIZATION: All CT scans at this facility use at least one of these dose optimization te chniques: automated exposure control; mA and/or kV adjustment per patient size (includes targeted exa ms where dose is matched to clinical indication); or iterative reconstruction.
== END 2021-09-07 01:42 ==
PROVIDERS: PCP Internal Medicine; Visit Provider Internal Medicine
DX: Z12.2 Encounter for screening for malignant neoplasm of respiratory organs (principal); F17.210 Nicotine dependence, cigarettes, uncomplicated; R91.1 Solitary pulmonary nodule; J98.4 Other disorders of lung; R91.8 Other nonspecific abnormal finding of lung field
CPT/HCPCS: 71271

== ENCOUNTER → 2021-09-21 12:47 | Outpatient (BNVA) | payer MEDICARE, OTHER, SELFPAY | PROVIDERS: PCP Internal Medicine; Referring Provider Internal Medicine; Visit Provider Urology | DX: C67.9 Malignant neoplasm of bladder, unspecified (principal) | CPT/HCPCS: 52000; 81003 ==

== ENCOUNTER → 2021-10-06 12:52 | Outpatient (BNVA) | payer MEDICARE, OTHER, SELFPAY | PROVIDERS: PCP Internal Medicine; Referring Provider Internal Medicine; Visit Provider Student in an Organized Health Care Education/Training Program | DX: M19.012 Primary osteoarthritis, left shoulder (principal); I10 Essential (primary) hypertension | CPT/HCPCS: 99214 ==

== ENCOUNTER 2021-10-12 01:30 | Outpatient (CLI) | payer MEDICARE, OTHER, SELFPAY ==
[2021-10-12 10:25] LABS: Source Nasal/Nares
[2021-10-12 12:40] LABS: COVID-19 PCR Negative (Negative)
== END 2021-10-12 01:31 | disposition home or self-care (01) ==
PROVIDERS: Student in an Organized Health Care Education/Training Program; PCP Internal Medicine; Visit Provider Urology
DX: Z20.822 Contact with and (suspected) exposure to COVID-19 (principal)
CPT/HCPCS: 87635

== ENCOUNTER 2021-10-13 13:41 | Outpatient (CLI) | payer MEDICARE, OTHER, SELFPAY ==
--- NOTE | 2021-10-13 13:30 | RT.EKG_ITS ---
APPROVED REPORT Exam: Resting ECG Reason for Exam: Preoperative evaluation Patient Location: O HR:63 bpm ECG Measurements Heart Rate 63 AXIS SC 132 P 76 QRSd 71 QRS 59 QT 402 T 19 QTc 413 Conclusion Incomplete analysis due to missing data in precordial lead(s) Sinus rhythm...normal P axis, V-rate 60- 99 Normal Electrocardiogram
== END 2021-10-13 13:42 | disposition home or self-care (01) ==
LOC: DI.KIM 13:50
PROVIDERS: PCP Internal Medicine; Visit Provider Nurse Practitioner Family
DX: R03.0 Elevated blood-pressure reading, without diagnosis of hypertension (principal); Z01.818 Encounter for other preprocedural examination; Z53.29 Procedure and treatment not carried out because of patient's decision for other reasons
CPT/HCPCS: 93010

== ENCOUNTER 2021-10-14 06:10 | Day surgery (SDC) | payer MEDICARE, OTHER, SELFPAY ==
[2021-10-14 06:15] VITALS: BP 142/95; PULSE 75; RESP 18; TEMP 36.5; O2SAT 96
[2021-10-14] MEDS: Lactated Ringers 1,000 ML 80 ML IV (06:39)
--- NOTE | 2021-10-14 06:52 | HPE_ITS ---
Date of service: 10/14/21 Time of Service: 06:52 Assessment and Plan Assessment and plan (1) Urothelial carcinoma of bladder: Status: Chronic Assessment and plan: For cystoscopy/TURBT/instillation of Mitomycin C History of Present Illness History of Present Illness Chief Complaint: Bladder cancer Narrative: This is a 71-year-old woman who has a history of low-grade, noninvasive urothelial cell carcinoma of the bladder. On her most recent surveillance cystoscopy, we iden tified four small papillary lesion up at the dome of the bladder. She presents for cystoscopy with TURBT. She is not having any gross hematuria. She does admit to voiding frequently but believes it may be related to her diuretic. Review of Systems Narrative: No fevers or chills No vision change or dysphasia No diabetes or thyroid dysfunction No cough or hemoptysis No chest pain or palpitations Hx GERD. No hepatitis, ulcers, jaundice, diarrhea or constipation Peripheral neuropathy. No seizures, stroke No bleeding disorders or anemia Recent back surgery. No gout PFSH All Active Problems Anemia (Chronic) Urinary frequency (Acute) Smoker (Chronic) [place] cardiac risk >20% in next 10 years (Chronic) 2020: 32% Arthritis of left glenohumeral joint (Chronic ~07/01/14) Left elbow pain (Acute) Unintentional weight loss (Acute) GERD (gastroesophageal reflux disease) (Chronic) Spinal stenosis of lumbar region with radiculopathy (Acute) Leg edema (Acute) Spasticity (Acute) Trochanteric bursitis, right hip (Acute) Chronic hypokalemia (Acute) Coordination impairment (Acute 07/05/16) Sessile colonic polyp (Acute 03/14/18) Medical marijuana use (Chronic) Paresthesias (Chronic) 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 Dr Velazco, [facility] [place] Neu[facility] Magnesium-losing nephropathy (Chronic) very mild; tx spironolactone Delayed gastric emptying (Chronic) mild Urothelial carcinoma of bladder (Chronic) Cervical myelopathy (Chronic) Spinal stenosis, other region (Acute 12/14/11) 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; cervical spondylosis; operated 08/03/16 Spinal stenosis, lumbar region without neurogenic claudication (Acute 12/14/11) Peripheral neuropathy (Acute 07/01/14) Osteopenia (Acute 12/14/11) Osteoporosis wrist, osteopenia hip, normal bone density of spine 2017 osteopenia 2011 Osteoarthritis of spine with radiculopathy, cervical region (Acute 09/05/11) Essential hypertension (Acute 02/26/13) Depression (Chronic 07/01/14) Medical History Adhesive capsulitis of left shoulder Injected 12/11/2018 Community acquired pneumonia Cough Discharge planning issues DVT prophylaxis Hx of bacterial pneumonia Hyperlipidemia Nausea and vomiting Neuropathy Preoperative examination Spinal stenosis Surgical History Anterior Fusion Cervical Spine C3-C5 (07/31/16) Jul 2016, [facility] [place] Dr. Martinez Arthroplasty of knee Per patient she has not had a TOTAL KNEE Breast, Lumpectomy Cervical spondylosis 11/03/20 C5-[address] Everett Cardoza 11/04/20 D/C'd home Colonoscopy - MAC (03/12/18) Colon,transverse,polyp,biopsy - fragment of sessile serrated adenoma. (Dr Neely) H/O cystoscopy (09/06/18) w/transurethral resection of bladder tumors-Dr Wiggins H/O laminectomy (~06/2021) APD-L3-L4 laminectomy, medial fa for decompression of stenosis, lateral disectomy [id number] Hemiarthroplasty (09/07/15) L shoulder Dr Luz History of hemiarthroplasty of left shoulder 09/07/2015 Repair of umbilical hernia Rotator Cuff Repair Status post shoulder hemiarthroplasty Tenotomy and debridement tendon L shoulder (10/25/17) Family History Father Essential hypertension Glaucoma Alzheimer's dementia Social History Smoking/Tobacco Use Status: Current-Occasional Tobacco Type: cigarettes Smoking risk assessment performed?: Yes Alcohol Intake: former Drug use: Daily Substance use type: marijuana Details: marijuana: uses qd. Marijuana: t-3, couple hits Household members: none Housing: house Number of Children: 0 Pets and animals: Yes Pets and animals: cat(s) and dog(s) Current gender identity: female What type of physical activity do you participate in: none and other Details: PT 2 xweek Frequency: 1-2 times per week Seatbelt use: always Drive intox or ride w/intox transit mixer driver: No Working smoke detector in home: Yes Fire extinguisher in home: Yes Carbon monox detector in home: Yes Do you feel safe at home: Yes Do you feel safe in your relationship?: Yes Meds Allergies and Home Medications Allergies Allergy/AdvReac Type Severity Reaction Status Date / Time codeine AdvReac Intermediate Nausea Verified 10/14/21 06:24 hydrochlorothiazide AdvReac Mild hypomagnese Verified 10/14/21 06:24 pop duloxetine AdvReac Other (See Verified 10/14/21 06:24 Comment) narcotics AdvReac Intermediate Nausea, Uncoded 10/14/21 06:24 vomiting Home Medications Medication Instructions Recorded Confirmed Type aspirin [Aspir-Low] 81 mg PO DAILY 09/06/18 10/13/21 History multivitamin 1 tab PO HS tab 06/12/19 10/14/21 History calcium carbonate [Tums] 500 mg PO DAILY 04/20/20 10/14/21 History cholecalciferol (vitamin D3) 1,000 unit PO DAILY 04/20/20 10/14/21 History [Vitamin D3] potassium chloride 10 mEq 10 meq PO DAILY #90 cap 01/05/21 10/14/21 Rx capsule,extended release cetirizine 10 mg tablet 10 mg PO BID #180 tab 05/06/21 10/14/21 Rx magnesium oxide 400 mg PO DAILY #90 tab 05/06/21 10/14/21 Rx pravastatin 40 mg tablet 40 mg PO DAILY #90 tab 05/06/21 10/14/21 Rx spironolactone 25 mg tablet 25 mg PO DAILY #90 tab 05/26/21 10/14/21 Rx pantoprazole 20 mg tablet,delayed 20 mg PO BID #180 tab 06/15/21 10/14/21 Rx release ondansetron 4 mg disintegrating 4 mg PO DAILY PRN #14 tab 08/03/21 10/14/21 Rx tablet metoclopramide HCl 5 mg tablet 5 mg PO QACHS #360 tab 08/11/21 10/14/21 Rx gabapentin 800 mg tablet 800 mg PO TID #270 tab 08/16/21 10/14/21 Rx ibuprofen 200 mg tablet 400 mg PO TID PRN tab 09/22/21 10/14/21 History amlodipine 2.5 mg tablet 2.5 mg PO DAILY #14 tab 10/13/21 10/13/21 Rx Exam Const General: cooperative Neck Neck: supple Resp Effort & Inspection: normal respiratory effort Auscultation: clear to auscultation bilaterally Cardio Rate: regular rate Rhythm: regular rhythm GI Inspection: normal to inspection Palpation: soft and no masses Neuro General: patient alert, patient awake and patient oriented x3 Results Last Vital Signs Temp 36.5 C 10/14/21 06:15 Pulse 75 10/14/21 06:15 Resp 18 10/14/21 06:15 BP 142/95 H 10/14/21 06:15 Pulse Ox 96 10/14/21 06:15
--- NOTE | 2021-10-14 06:57 | W.ANESPRE ---
General Info Date of Service Date Performed: 10/14/21 Height: 5 ft 3 in Weight: 52.3 kg Body Mass Index (BMI): 20.4 Surgical Procedure: Operation Date: 10/14/21 07:40 Proposed Procedures Side Surgeon p Transurethral Resection Bladder Tumor, cysto, mitomycin Davian Wiggins MD s Bladder Installation Davian Wiggins MD Meds Allergies and Home Medications Allergies Allergy/AdvReac Type Severity Reaction Status Date / Time codeine AdvReac Intermediate Nausea Verified 10/14/21 06:24 hydrochlorothiazide AdvReac Mild hypomagnese Verified 10/14/21 06:24 pop duloxetine AdvReac Other (See Verified 10/14/21 06:24 Comment) narcotics AdvReac Intermediate Nausea, Uncoded 10/14/21 06:24 vomiting Home Medication Medication Instructions Recorded aspirin [Aspir-Low] 81 mg PO DAILY 09/06/18 multivitamin 1 tab PO HS tab 06/12/19 calcium carbonate [Tums] 500 mg PO DAILY 04/20/20 cholecalciferol (vitamin D3) 1,000 unit PO DAILY 04/20/20 [Vitamin D3] potassium chloride 10 mEq 10 meq PO DAILY #90 cap 01/05/21 capsule,extended release cetirizine 10 mg tablet 10 mg PO BID #180 tab 05/06/21 magnesium oxide 400 mg PO DAILY #90 tab 05/06/21 pravastatin 40 mg tablet 40 mg PO DAILY #90 tab 05/06/21 spironolactone 25 mg tablet 25 mg PO DAILY #90 tab 05/26/21 pantoprazole 20 mg tablet,delayed 20 mg PO BID #180 tab 06/15/21 release ondansetron 4 mg disintegrating 4 mg PO DAILY PRN #14 tab 08/03/21 tablet metoclopramide HCl 5 mg tablet 5 mg PO QACHS #360 tab 08/11/21 gabapentin 800 mg tablet 800 mg PO TID #270 tab 08/16/21 ibuprofen 200 mg tablet 400 mg PO TID PRN tab 09/22/21 amlodipine 2.5 mg tablet 2.5 mg PO DAILY #14 tab 10/13/21 Current Visit Medications: Current Medications Generic Name Dose Route Start Last Admin Trade Name Freq PRN Reason Stop Dose Admin Mitomycin 40 mg/ Sodium 0 mg 10/14/21 06:00 Chloride 40 ml BLADIN 10/14/21 16:00 TODAY FARZANA Ringer's Solution 1,000 mls @ 80 mls/hr 10/14/21 06:00 10/14/21 06:39 IV 11/12/21 23:59 80 mls/hr INFUSION [facility] Administration Cefazolin Sodium/Dextrose 1 gm in 50 mls @ 100 mls/hr 10/14/21 06:00 Ancef Duplex IVPB 10/14/21 16:00 PREOP FARZANA IV Miscellaneous Supplies 1 each 10/14/21 06:00 Iv Access IV 11/12/21 23:59 DIRECTED FARZANA Sodium Chloride 0 ml 10/14/21 06:00 Normal Saline Flush 10 Ml Syr IV 11/12/21 23:59 PRN PRN Sodium Chloride 0 ml 10/14/21 06:00 Normal Saline 10 Ml Vial IJ 11/12/21 23:59 DIRECTED PRN Sterile Water 0 ml 10/14/21 06:00 Water,Injection,Sterile 10 Ml Vial IJ 11/12/21 23:59 DIRECTED PRN PFSH Active Problems Active Problems: Problem Status Onset Code Anemia D64.9 Urinary frequency R35.0 Smoker F17.200 [place] cardiac risk >20% in next 10 years Z91.89 Arthritis of left glenohumeral joint ~07/01/14 M19.012 Left elbow pain M25.522 Unintentional weight loss R63.4 GERD (gastroesophageal reflux disease) K21.9 Spinal stenosis of lumbar region with radiculopathy M48.061, M54.16 Leg edema R60.0 Spasticity R25.2 Trochanteric bursitis, right hip M70.61 Chronic hypokalemia E87.6 Coordination impairment 07/05/16 R27.8 Sessile colonic polyp 03/14/18 K63.5 Medical marijuana use Z79.899 Paresthesias R20.2 Duplay's periarthritis syndrome M75.30 Magnesium-losing nephropathy N25.89 Delayed gastric emptying K30 Urothelial carcinoma of bladder C67.9 Cervical myelopathy G95.9 Spinal stenosis, other region 12/14/11 M48.00 Spinal stenosis, lumbar region without neurogenic claudication 12/14/11 M48.061 Peripheral neuropathy 07/01/14 G62.9 Osteopenia 12/14/11 M85.80 Osteoarthritis of spine with radiculopathy, cervical region 09/05/11 M47.22 Essential hypertension 02/26/13 I10 Depression 07/01/14 F32.9 Medical History Medical History Adhesive capsulitis of left shoulder Injected 12/11/2018 Community acquired pneumonia Cough Discharge planning issues DVT prophylaxis Hx of bacterial pneumonia Hyperlipidemia Nausea and vomiting Neuropathy Preoperative examination Spinal stenosis Surgical History Surgical History Anterior Fusion Cervical Spine C3-C5 (07/31/16) Jul [place], [facility] [place] Arthroplasty of knee Per patient she has not had a TOTAL KNEE Breast, Lumpectomy Cervical spondylosis 11/03/20 C5-[address] Everett Cardoza 11/04/20 D/C'd home Colonoscopy - MAC (03/12/18) Colon,transverse,polyp,biopsy - fragment of sessile serrated adenoma. (Dr Neely) H/O cystoscopy (09/06/18) w/transurethral resection of bladder tumors-Dr Wiggins H/O laminectomy (~06/2021) APD-L3-L4 laminectomy, medial fa for decompression of stenosis, lateral disectomy [id number] Hemiarthroplasty (09/07/15) L shoulder Dr Luz History of hemiarthroplasty of left shoulder 09/07/2015 Repair of umbilical hernia Rotator Cuff Repair Status post shoulder hemiarthroplasty Tenotomy and debridement tendon L shoulder (10/25/17) Tobacco Smoking/Tobacco Use Status: Current-Occasional Tobacco Type: cigarettes Smoking cigarettes per day: 10 Alcohol Alcohol Intake: former Substance Use Substance use: Daily Substance use type: marijuana Details: marijuana: uses qd. Marijuana: t-3, couple hits Vital Signs and Lab Results Vital Signs Most Recent Vital Signs in EMR: Most Recent Vital Signs Temp Pulse Resp BP Pulse Ox 36.5 C 75 18 142/95 H 96 10/14/21 06:15 10/14/21 06:15 10/14/21 06:15 10/14/21 06:15 10/14/21 06:15 Lab Results Blood Type / Crossmatch: No Data to Display Complete Blood Count: No Data to Display Complete Metabolic Panel: No Data to Display Liver Function Panel: No Data to Display Coagulation Panel: No Data to Display Cardiac Panel: No Data to Display Arterial Blood Gas: No Data to Display Venous Blood Gas: No Data to Display Pancreas Panel: No Data to Display Thyroid Panel: No Data to Display Infectious Disease: Coronavirus (COVID-19)(PCR) Negative (Negative) 10/12/21 08:57 10/12/21 Coronavirus 2019 Source Nasal/Nares 10/12/21 08:57 10/12/21 Blood Cultures: No Data to Display Toxicology Panel: No Data to Display Imaging and Studies Imaging and Studies Study information below may be from another EMR and interpreted by another provider. Please see original notes in EMR for more complete details. Echocardiogram Summary: Date of Exam: 09/15/20ex: F Admission Date: 09/15/20 : 1950 Age: 70 a US:US echocardiogram Indications: Amaurosis Other Information Study Quality: Adequate Conclusion Left Ventricle : The left ventricle is normal size. The left ventricular systolic function is normal. The left ventricular ejection fraction is within the normal range. There is normal left ventricular wall thickness. There is normal LV segmental wall motion. The left ventricular diastolic function is normal. LVEF is 60-65%. Right Ventricle : The right ventricle is normal size. The right ventricular systolic function is normal. The RVSP is 21.5 mmHg. Atria : The left atrium size is normal. The right atrium size is normal. Valves: There are no hemodynamically significant valvular lesions. Great Vessels : The aortic root is normal in size. The ascending aorta is normal in size. Aortic arch is not well visualized. IVC is normal in size and collapses >50% with inspiration. Please see remainder of study for further details. Carotid Artery Summary:: Date of Exam: 09/24/20ex: F Admission Date: 09/24/20 : 1950 Age: 70 EXAM: US CAROTID CLINICAL HISTORY: amaurosis fugax both eyes,g45.3. COMPARISON: US US ECHOCARDIOGRAM from 09/15/2020 FINDINGS: RIGHT CAROTID ARTERY: Plaque: There is mild focal plaque at the carotid bulb level without evidence of hemodynamically significant stenosis at this level.. There is no significant stenosis in the proximal right internal carotid artery. Velocity elevation: None. LEFT CAROTID ARTERY: Plaque: There is mild-moderate plaque in the distal left common carotid artery and carotid bulb and proximal left internal carotid artery,. Amount of stenosis is less than 50 percent. Velocity elevation: None. VERTEBRAL ARTERIES: Antegrade flow demonstrated in both vertebral arteries. Pulmonary Function Summary: DATE OF SERVICE December 05, 2017 REQUESTING PROVIDER Mary Dorsey M.D. INTERPRETATION OF STUDY Spirometry shows mild obstructive airways disease with no significant bronchodilator response. LUNG VOLUMES - Lung volumes show no evidence of restriction. DIFFUSION CAPACITY- Severely reduced, which is moderately reduced when corrected to alveolar volume. AIRWAY RESISTANCE - Normal. IMPRESSION Mild obstructive airways disease with no significant bronchodilator response. This is associated with severe diffusion defect. Clinical correlation recommended. Anesthesia Assessment and Plan Anesthesia History Personal History: No History of Anesthesia Complications Family History: No Family History of Anesthesia Complications and Pseudocholinesterase Deficiency Exercise Tolerance Exercise Tolerance: Metabolic Equivalents>4 Pertinent Negatives Pertinent Negatives: No Symptoms of GERD Cardiac & Pulmonary Exam Cardiac Exam: Normal S1/S2 Heart Sounds Pulmonary Exam: Clear Bilateral Breath Sounds Implantable Cardiac Device Does patient have a Pacemaker or an ICD?: No Airway Exam Known Difficult Airway: No Mallampati Class: 2 Mouth Opening: Normal (> 3cm) Thyromental Distance: Greater than 3 cm Neck Range of Motion: Full ROM Neck Circumference: Normal Teeth Condition: Normal Dentition ASA Classification ASA Score: ASA 2 Emergency Case?: No NPO Status NPO Status: NPO Clears >2 hours, Solids >8 hours Anesthesia Plan Resuscitation Status: Full Code Anesthesia Technique: General Anesthesia Airway Planned: Natural Airway Monitors Used: Standard Monitors
[2021-10-14 07:05] VITALS: BMI 20.4
[2021-10-14] MEDS: ceFAZolin 1 GM/50 ML BAG IVPB (07:25)
[2021-10-14] MEDS: Lidocaine 2% Jelly 6 ML SYR (07:38)
--- NOTE | 2021-10-14 07:45 | BLADDER_PTH ---
PATIENT: Belén Velasquez LOC: [facility] U#:[id number] AGE/SX: 71/F ROOM: RE10/14/[address]: Davian Wiggins MD : 1950 BED: DIS: 10/14/2021 SPEC #: [id number] RECD: 10/14/21 12:40 STATUS: ARNIECassie REQ #: [id number] MELODIE: 10/14/21 07:[address]: Davian Wiggins DEPT: Surgical Specimen RECD BY: Юлия Bland ENTERED: 10/14/21 12:41 SP TYPE: Bladder OTHR DR: Mary Dorsey MD Tissues: 1 - BLADDER BIOPSY Procedures: GROSS AND MICRO LEVEL 4 Comments: [id number]
--- NOTE | 2021-10-14 08:00 | W.PM.DSUDISC ---
Discharge Plan Disposition Patient Disposition: HOME Condition: Stable Discharge Details Reason For Visit: Bladder cancer Attending Provider: Davian Wiggins Primary Care Provider: Mary Dorsey Home Meds and New Rx's Prescriptions: No Action potassium chloride 10 mEq capsule, extended release 10 meq PO DAILY Qty: 90 RF: 3 Hold Instructions: Home Medication placed on hold at Doctor's office ibuprofen 200 mg tablet 400 mg PO TID PRNRF: 0 amlodipine 2.5 mg tablet 2.5 mg PO DAILY Qty: 14 RF: 0 gabapentin 800 mg tablet 800 mg PO TID Qty: 270 RF: 3 pantoprazole 20 mg tablet,delayed release (DR/EC) 20 mg PO BID Qty: 180 RF: 3 multivitamin [Daily Multi-Vitamin] Tablet 1 tab PO HS RF: 0 cetirizine [Zyrtec] 10 mg tablet 10 mg PO BID Qty: 180 RF: 3 pravastatin 40 mg tablet 40 mg PO DAILY Qty: 90 RF: 3 magnesium oxide 400 mg magnesium tablet 400 mg PO DAILY Qty: 90 RF: 3 spironolactone 25 mg tablet 25 mg PO DAILY Qty: 90 RF: 3 ondansetron 4 mg tablet,disintegrating 4 mg PO DAILY PRN (Reason: nausea and vomiting) Qty: 14 RF: 3 metoclopramide HCl 5 mg tablet 5 mg PO QACHS Qty: 360 RF: 3 calcium carbonate [Tums] 200 mg calcium (500 mg) Tablet,Chewable 500 mg PO DAILY RF: 0 cholecalciferol (vitamin D3) [Vitamin D3] 25 mcg (1,000 unit) Capsule 1,000 unit PO DAILY RF: 0 aspirin [Aspir-Low] 81 mg Tablet,Delayed Release (Dr/Ec) 81 mg PO DAILY RF: 0 Discharge Instructions Additional Instructions: Leave rayo clamped with Mitomycin C in bladder for @ 1 hour then unclamp, drain bladder and remove catheter Unclamp and remove catheter sooner prn bladder pain followup @ 2 weeks for pathology results - could be by phone if easier for pt next cystoscopy schedule will depend on biopsy results Activity:: Activity as Tolerated Diet:: As Tolerated Discharge Orders Discharge Orders: Discharge Order (Routine); Ordered 10/14/21 Ordered By: Davian Wiggins DS: Diagnosis Discharge Diagnosis (1) Urothelial carcinoma of bladder: Status: Chronic
--- NOTE | 2021-10-14 08:04 | ROE_ITS ---
Date of service: 10/14/21 Time of Service: 08:05 Operative Note Operative Note DATE OF PROCEDURE: 10/14/21 PRE-OP DIAGNOSIS: bladder cancer POST-OP DIAGNOSIS: same PROCEDURE: cystoscopy, transurethral resection bladder tumor, instillation mitomycin c into bladder SURGEON: Davian Wiggins ANESTHESIA TYPE: Local By Surgeon and General LMA/ETT Refer to Anesthesia Record ESTIMATED BLOOD LOSS: 25 PATHOLOGY: other (bladder tumor) COMPLICATIONS: None Patient was transported to: same day Patient's condition: stable Implants: 16 Congolese rayo with 10 cc sterile water in balloon Indications: This is a 71-year-old woman who has a history of low-grade, noninvasive urothelial cell carcinoma of the bladder. On her most recent surveillance cystoscopy, we identified papillary lesions at the dome of the bladder. She presents for resection and instillation of Mitomycin-C into the bladder. Findings: Papillary lesion at the dome of the bladder Procedure Description: Patient was brought to the operating room on 10/14/2021. After successful induction of general anesthesia, she was placed in the dorsal lithotomy position. Her genitalia was prepped and draped sterilely. She was given preoperative IV antibiotics. 2% Xylocaine jelly was instilled into the urethra. I then passed a 24 Cong[place]ese resectoscope sheath through the urethra into the bladder. The bladder was inspected with a 30 degree lens. The previously identified papillary lesions were again seen at the dome of the bladder. We resected and cauterized these lesions using the [employer] resectoscope. Once all visible abnormal mucosa had been treated, we removed the resectoscope. All the resected tissue was sent to pathology for permanent section. We then passed a 16 [place] Rayo catheter through the urethra into the bladder. We inflated the catheter balloon with 10 cc of sterile water. We instilled a solution that contained 40 mg of Mitomycin-C mixed in 40 mL of saline into the bladder. The catheter was then clamped leaving the Mitomycin-C in place. A belladonna and opium suppository was then instilled rectally. The patient tolerated the procedure well. She was taken back to the day surgery unit in stable condition. Her catheter will be unclamped and removed in 1 hour or sooner if the patient develops significant discomfort.
[2021-10-14 08:05] VITALS: BP 157/74; PULSE 68; RESP 16; TEMP 36.4; O2SAT 97
[2021-10-14 08:30] VITALS: BP 151/89; PULSE 68; RESP 16; TEMP 36.4; O2SAT 97
--- NOTE | 2021-10-14 09:05 | W.ANESPOSTOP ---
Postoperative Evaluation Date, Time and Location Date Performed: 10/14/21 Time Performed: 08:40 Patient Location: Day Surgery Unit Vital Signs Most Recent Imported Vital Signs: Most Recent Vital Signs Temp Pulse Resp BP Pulse Ox 36.4 C L 68 16 151/89 H 97 10/14/21 08:30 10/14/21 08:30 10/14/21 08:30 10/14/21 08:30 10/14/21 08:30 Pain Score Most Recent Pain Score: Most Recent Pain Score Pain Level 0 10/14/21 08:30 Assessment Mental Status: Awake (Alert & Oriented to Patient Baseline) Airway and Respiratory Function: Patent airway with normal (patient baseline) respiratory exam Cardiovascular Function: Hemodynamically Stable Hydration Status: Adequately Hydrated Nausea & Vomiting: No Nausea or Vomiting Pain: Pt. Denies Any Pain Peripheral Nerve Block: Patient did not receive a nerve block
== END 2021-10-14 09:30 | disposition home or self-care (01) ==
PROVIDERS: PCP Internal Medicine; Visit Provider Urology
PROC: 0TBB8ZZ Excision of Bladder, Via Natural or Artificial Opening Endoscopic (ICD-10-PCS; CPT 52234; principal; 2021-10-14 07:30)
PROC: (CPT 52234; 2021-10-14 07:30)
DX: C67.1 Malignant neoplasm of dome of bladder (principal); I10 Essential (primary) hypertension; E78.5 Hyperlipidemia, unspecified; G62.9 Polyneuropathy, unspecified
CPT/HCPCS: 52234; 51720; 88305; J0690; J1885; J2001; J2405; J9280

== ENCOUNTER → 2021-10-20 13:45 | Outpatient (BNVA) | payer MEDICARE, OTHER, SELFPAY | PROVIDERS: PCP Internal Medicine; Referring Provider Internal Medicine; Visit Provider Nurse Practitioner Gerontology | DX: Z48.816 Encounter for surgical aftercare following surgery on the genitourinary system (principal); C67.9 Malignant neoplasm of bladder, unspecified; N39.0 Urinary tract infection, site not specified | CPT/HCPCS: 81003; 99213 ==

== ENCOUNTER 2021-10-20 16:35 | Outpatient (REF) | payer MEDICARE, OTHER, SELFPAY | END 2021-10-20 16:36 | disposition home or self-care (01) | LOC: LBN 16:35 | PROVIDERS: PCP Internal Medicine; Visit Provider Nurse Practitioner Gerontology | DX: N39.0 Urinary tract infection, site not specified (principal) | CPT/HCPCS: 87077; 87086; 87186 ==

== ENCOUNTER 2021-10-27 11:03 | Observation (INO) | payer MEDICARE, OTHER, SELFPAY ==
[2021-10-27] VITALS (22 sets, daily range): BP systolic 112–190; BP diastolic 62–104; PULSE 72–93; RESP 10–25; TEMP 36.1–37.2; O2SAT 78–99
--- NOTE | 2021-10-27 11:15 | RT.EKG_ITS ---
APPROVED REPORT Exam: Resting ECG Reason for Exam: sob Patient Location: E HR:83 bpm ECG Measurements Heart Rate 83 AXIS MD 126 P 77 QRSd 78 QRS 61 QT 389 T 36 QTc 458 Conclusion Sinus rhythm...normal P axis, V-rate 60- 99 sinus rhythm at 83, normal axis, no acute ischemic changes, nondiagnostic EKG
--- NOTE | 2021-10-27 11:26 | W.ED.GENAD ---
Discharge Plan Disposition Patient Disposition: [facility] INPATIENT Condition: Stable Discharge Details Chief Complaint: SOB Clinical Impression: Acute UTI, Weakness Admit Date/Time: 10/27/21 15:15 Admit Provider: Micha Carney Attending Provider: Micha Carney Primary Care Provider: Mary Dorsey ED Provider: Sujey Murphy Discharge Instructions Activity:: Activity as Tolerated Equipment/Supplies:: No Equipment Needed Diet:: Normal Diet Discharge Orders Discharge Orders: Discharge Order (Routine); Ordered 10/28/21 Ordered By: Micha Carney Discharge Data Discharge Date/Time-TO BE ENTERED AT DEPARTURE: 10/27/21 16:31 Medical Decision Making Belén Velasquez is a 71-year-old woman with a history of GERD, anemia, urothelial carcinoma of bladder, hypertension, depression presenting to emergency department with generalized weakness. On exam patient is somewhat ill-appearing, alert, conversing normally. Lungs are clear to auscultation bilaterally. There is mild abdominal distention and abdominal tenderness to palpation. Concern for post procedure complication, UTI, possible early sepsis, metabolic/electrolyte derangement, Covid pneumonia, bacterial pneumonia, other. Doubt acute coronary syndrome, doubt pulmonary embolism. Exam/history at this time is not consistent with acute aortic pathology, mesenteric ischemia. Plan for EKG, IV placement, screening labs, UA, IV fluid hydration, chest x-ray. Will monitor and reassess. Labs reviewed, WBC 7.98, hemoglobin 12.4, D-dimer 749, lactate 1.1, anion gap 10.9, UA consistent with UTI. Patient reports continued abdominal pain. She also reports that she has felt unable to care for herself at home over the past 2 days, has had extreme difficulty going from her bedroom to the bathroom, feels lightheaded whenever she stands and generally very weak. Given abdominal pain, recent procedure, cancer history, elevated D-dimer in setting of new shortness of breath, plan for CT chest/abdomen/pelvis. Imaging negative for acute process. Plan for admission for UTI, dehydration as patient states that she she feels too weak to care for herself at home, lives alone, and has no one to care for her. Medical Records Medical records reviewed: Yes I reviewed the patient's medical records. Imaging Data Radiologic Study: Attestation: I personally reviewed and interpreted this imaging study as follows: Radiologist's impression: EXAM: ? CT CHEST PE ABD ? PELVIS W CLINICAL HISTORY: ? SOB. TECHNIQUE:? Imaging Protocol:? Axial CT angiography was performed with multi-slice acquisition and multi-planar and/or 3D reconstructions. CONTRAST MATERIAL:? Intravenous: Omnipaque 350 Contrast volume:60 ml COMPARISON:? CR XR PORTABLE CHEST AP from 08/05/[address] ABDOMEN ? PELVIS W from 12/13/[address] CHEST LUNG CANCER SCREEN from 09/07/2021 FINDINGS: CHEST: Pulmonary Arteries: No evidence of filling defect to suggest pulmonary emboli. Tracheobronchial tree: Patent where visualized. Mediastinum and Amarilis: No dominant adenopathy or fluid collection. Pulmonary parenchyma: Evaluation somewhat limited due to expiratory changes.? Significant improvement in previously noted bronchial wall thickening and infiltrates.? No change nodule left lung base measuring 8 millimeters.? No change 4 millimeter nodule right middle lobe.? Underlying emphysematous changes.? Pleura: No effusion or pneumothorax. Heart: The heart is not dilated. coronary artery calcifications are seen. Aorta: Thoracic aorta non-dilated. Bones: Left shoulder prosthesis.? Degenerative changes and scoliosis in the spine. ABDOMEN: Liver: Normal density. No measurable mass. Portal, Superior Mesenteric, and Splenic Veins: Unremarkable.? Gallbladder and Biliary Tract: No radiodense calculus or dilation. Pancreas: Normal density, no abnormal calcifications or inflammatory process. Spleen: Normal. Adrenals: No masses seen. Kidneys: Normal size, contour and axis. No radiodense stones or obstructive uropathy. No masses seen.? Few small cysts are noted.? Abdominal Aorta: Abdominal portion non-dilated.? Atherosclerotic calcification some luminal narrowing.? No evidence of dissection.? No branch vessel occlusion.? Bowel: No obstruction or bowel wall thickening. Appendix is unremarkable. Peritoneal Cavity: No ascites, collection or mesenteric inflammatory response. Lymph Nodes: Within normal limits. Bones: Degenerative changes greatest at L4-5.? Degenerative changes in the hips, left greater than right.? Soft Tissues: Unremarkable. PELVIS: Bladder: Thick-walled bladder without evidence of mass or calcification..? Reproductive Organs: No change enlarged uterus with fibroids.? Lymph Nodes: Within normal limits. Bones: Within normal limits. IMPRESSION: 1. No evidence of pulmonary embolism. Stable pulmonary nodules.? Emphysematous changes.? No acute infiltrates.? Dependent changes at the lung bases.? 2. Thickened wall of urinary bladder.? No acute abdominal or pelvic process.? Lab Data Lab results reviewed: Yes I reviewed the patient's lab results. ECG Data Attestation: I personally reviewed and interpreted this ECG (s) as follows: Interpretation: EKG shows sinus rhythm at 83, normal axis, no acute ischemic changes, nondiagnostic EKG HPI General Mode of arrival: wheelchair. Date/Time Provider Initiated Documentation: 10/27/21 11:04. Limitations to Documentation: no limitations. Information obtained by: patient, RN notes reviewed and old records reviewed. HPI Narrative: Belén Velasquez is a 71-year-old woman with a history of GERD, anemia, urothelial carcinoma of bladder, hypertension, depression presenting to emergency department with generalized weakness. Per record review, patient underwent transurethral resection of bladder tumor here at [facility] on 10/14/2021. Patient then presented to urology clinic on 10/20/2021 for dysuria, urinary frequency, and was diagnosed with UTI. Patient reports that she was delayed in getting her prescription, and took first dose of Macrobid for UTI 2 days ago. Patient reports that shortly after taking Macrobid, she began to feel unwell. She reports that she developed nausea, felt generally weak, and began to have shortness of breath with exertion as well as cough. Patient reports that she believes that she vomited up the dose of Macrobid. Patient reports that she has taken no further Macrobid since that first dose. She reports that she had another episode of vomiting yesterday morning, and no vomiting since then. She reports abdominal distention and mild abdominal pain over the past 2 days as well, denies any other new pain. She reports that she has had decreased appetite since onset of symptoms, and has had poor p.o. intake. Small amount of diarrhea, no constipation. She reports that she does not feel short of breath at rest, but for the past 2 days gets significantly winded with exertion which is not typical for her. Patient is triple vaccinated for Covid. Related Data Home Medications Medication Instructions Recorded Confirmed aspirin 81 mg tablet,delayed 81 mg PO DAILY 09/06/18 10/27/21 release (Aspir-Low) multivitamin (Daily Multi-Vitamin) 1 tab PO HS tab 06/12/19 10/27/21 calcium carbonate 200 mg calcium 500 mg PO DAILY 04/20/20 10/27/21 (500 mg) chewable tablet (Tums) cholecalciferol (vitamin D3) 25 1,000 unit PO DAILY 04/20/20 10/27/21 mcg (1,000 unit) capsule (Vitamin D3) potassium chloride 10 mEq 10 meq PO DAILY #90 cap 01/05/21 10/27/21 capsule,extended release cetirizine 10 mg tablet (Zyrtec) 10 mg PO BID #180 tab 05/06/21 10/27/21 magnesium oxide 400 mg PO DAILY #90 tab 05/06/21 10/27/21 pravastatin 40 mg tablet 40 mg PO DAILY #90 tab 05/06/21 10/27/21 spironolactone 25 mg tablet 25 mg PO DAILY #90 tab 05/26/21 10/27/21 pantoprazole 20 mg tablet,delayed 20 mg PO BID #180 tab 06/15/21 10/27/21 release ondansetron 4 mg disintegrating 4 mg PO DAILY PRN #14 tab 08/03/21 10/27/21 tablet metoclopramide HCl 5 mg tablet 5 mg PO QACHS #360 tab 08/11/21 10/27/21 gabapentin 800 mg tablet 800 mg PO TID #270 tab 08/16/21 10/27/21 amlodipine 2.5 mg tablet 2.5 mg PO DAILY #14 tab 10/13/21 10/27/21 ciprofloxacin HCl 500 mg tablet 500 mg PO BID #10 tab 10/28/21 (Cipro) methylprednisolone 4 mg tablets in See Rx Instructions PO PER PKG DIR 11/04/21 a dose pack (Kairos ARrol (Lalo)) #21 dose pk Previous Rx's Medication Instructions Recorded potassium chloride 10 mEq 10 meq PO DAILY #90 cap 01/05/21 capsule,extended release cetirizine 10 mg tablet (Zyrtec) 10 mg PO BID #180 tab 05/06/21 magnesium oxide 400 mg PO DAILY #90 tab 05/06/21 pravastatin 40 mg tablet 40 mg PO DAILY #90 tab 05/06/21 spironolactone 25 mg tablet 25 mg PO DAILY #90 tab 05/26/21 pantoprazole 20 mg tablet,delayed 20 mg PO BID #180 tab 06/15/21 release ondansetron 4 mg disintegrating 4 mg PO DAILY PRN #14 tab 08/03/21 tablet metoclopramide HCl 5 mg tablet 5 mg PO QACHS #360 tab 08/11/21 gabapentin 800 mg tablet 800 mg PO TID #270 tab 08/16/21 amlodipine 2.5 mg tablet 2.5 mg PO DAILY #14 tab 10/13/21 ciprofloxacin HCl 500 mg tablet 500 mg PO BID #10 tab 10/28/21 (Cipro) methylprednisolone 4 mg tablets in See Rx Instructions PO PER PKG DIR 11/04/21 a dose pack (Medrol (Lalo)) #21 dose pk Allergies Allergy/AdvReac Type Severity Reaction Status Date / Time codeine AdvReac Intermediate Nausea Verified 10/27/21 11:17 hydrochlorothiazide AdvReac Mild hypomagnese Verified 10/27/21 11:17 pop duloxetine AdvReac Other (See Verified 10/27/21 11:17 Comment) narcotics AdvReac Intermediate Nausea, Uncoded 10/27/21 11:17 vomiting General Stated Complaint: SOB ROSENDO: 3 Review of Systems Narrative: Constitutional: denies fevers, reports generalized weakness, poor appetite Eyes: denies eye pain ENT: denies ear pain, dental pain, sore throat Cardiovascular: denies chest pain, edema Respiratory: Reports SOB, cough GI: Reports abdominal bloating, abdominal pain, vomiting, diarrhea : denies flank pain, dysuria MSK: denies back pain, neck pain, arthralgias, myalgias Skin: denies rash Neuro: denies headaches, numbness, focal weakness, reports chronic neuropathic pain in bilateral hands that is unchanged PFSH All Active Problems (Updated 11/08/21 @ 08:44 by Sujey Murphy MD) Acute UTI (Acute) Weakness (Acute) Anemia (Chronic) Smoker (Chronic) [place] cardiac risk >20% in next 10 years (Chronic) 2020: 32% Arthritis of left glenohumeral joint (Chronic ~07/01/14) Unintentional weight loss (Acute) GERD (gastroesophageal reflux disease) (Chronic) Spinal stenosis of lumbar region with radiculopathy (Acute) Leg edema (Acute) Spasticity (Acute) Coordination impairment (Acute 07/05/16) Sessile colonic polyp (Acute 03/14/18) Medical marijuana use (Chronic) Paresthesias (Chronic) 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 Dr Velazco, [facility] [place] Neu[facility] Magnesium-losing nephropathy (Chronic) very mild; tx spironolactone Delayed gastric emptying (Chronic) mild Urothelial carcinoma of bladder (Chronic) Cervical myelopathy (Chronic) Spinal stenosis, other region (Acute 12/14/11) 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; cervical spondylosis; operated 08/03/16 Spinal stenosis, lumbar region without neurogenic claudication (Acute 12/14/11) Peripheral neuropathy (Acute 07/01/14) Osteopenia (Acute 12/14/11) Osteoporosis wrist, osteopenia hip, normal bone density of spine 2017 osteopenia 2011 Osteoarthritis of spine with radiculopathy, cervical region (Acute 09/05/11) Essential hypertension (Acute 02/26/13) Depression (Chronic 07/01/14) Medical History (Updated 11/08/21 @ 08:44 by Sujey Murphy MD) Adhesive capsulitis of left shoulder Injected 12/11/2018 Hx of bacterial pneumonia Hyperlipidemia Neuropathy Spinal stenosis Surgical History Anterior Fusion Cervical Spine C3-C5 (07/31/16) Jul 2016, [facility] [place] Dr. Martinez Arthroplasty of knee Per patient she has not had a TOTAL KNEE Breast, Lumpectomy Cervical spondylosis 11/03/20 C5-[address] Everett Cardoza Day 11/04/20 D/C'd home Colonoscopy - MAC (03/12/18) Colon,transverse,polyp,biopsy - fragment of sessile serrated adenoma. (Dr Neely) H/O cystoscopy (09/06/18) w/transurethral resection of bladder tumors-Dr Wiggins H/O laminectomy (~06/2021) APD-L3-L4 laminectomy, medial fa for decompression of stenosis, lateral disectomy [id number] Hemiarthroplasty (09/07/15) L shoulder Dr Luz History of hemiarthroplasty of left shoulder 09/07/2015 Repair of umbilical hernia Rotator Cuff Repair Status post shoulder hemiarthroplasty Tenotomy and debridement tendon L shoulder (10/25/17) Family History Father Essential hypertension Glaucoma Alzheimer's dementia Social History Smoking/Tobacco Use Status: Current-Occasional Tobacco Type: cigarettes Smoking risk assessment performed?: Yes Alcohol Intake: former Drug use: Daily Substance use type: marijuana Details: marijuana: uses qd. 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: No Working smoke detector in home: Yes Fire extinguisher in home: Yes Carbon monox detector in home: Yes Do you feel safe at home: Yes Do you feel safe in your relationship?: Yes Exam Narrative Exam Narrative: Constitutional: Somewhat ill appearing, alert, pleasant, conversing normally HENT: head atraumatic/normocephalic/normal inspection, mucous membranes moist Eyes: conjunctiva normal, sclera normal, pupils 3mm b/l Neck: no stridor, normal ROM, trachea midline Chest: normal inspection Resp: normal work of breathing, LCTAB Cardio: normal rate, normal rhythm, no murmur appreciated GI: abdomen soft, mild diffuse abdominal tenderness to palpation, mild distention Back: normal inspection, no rash Skin: warm, dry, normal color, no rash Neuro: alert, not altered, grossly non-focal, normal tone Ext: no edema, no posterior calf tenderness to palpation Psych: normal mood, normal affect, normal behavior Course Vital Signs Vital signs: Vital Signs Temperature 36.9 C 10/27/21 11:12 Pulse 90 10/27/21 11:12 Respiratory Rate 14 10/27/21 11:12 Pulse Oximetry 99 10/27/21 11:12 Temperature 36.9 C 10/27/21 11:12 Temperature Source Oral 10/27/21 11:12 Pulse 90 10/27/21 11:12 Respiratory Rate 14 10/27/21 11:12 Respiratory Effort 10/27/21 11:20 Respiratory Depth Normal 10/27/21 11:20 Respiratory Pattern Normal 10/27/21 11:20 Blood Pressure Position Sitting 10/27/21 11:12 Pulse Oximetry 99 10/27/21 11:12 Oxygen Delivery Method Room Air 10/27/21 11:12 Oxygen Flow Rate 0 10/27/21 11:12 Pain Level 2 10/27/21 11:12
--- NOTE | 2021-10-27 11:30 | DI.RAD_ITS ---
Exam(s) XR PORTABLE CHEST AP EXAM: XR PORTABLE CHEST AP CLINICAL HISTORY: SOB, cough TECHNIQUE: 2D digital imaging was performed. COMPARISON: CT CT CHEST LUNG CANCER SCREEN from 09/07/2021 FINDINGS: LUNGS: Mild emphysematous and fibrotic changes. No superimposed infiltrate. No pleural abnormality seen. HEART: Normal. MEDIASTINUM: Normal. BONES: Hardware lower cervical spine IMPRESSION: No acute pulmonary findings. DATA REPOSITORY: RADIATION DOSE DELIVERED:
[2021-10-27 11:56] LABS: Lactate 1.1 mmol/L (0.6-1.4)
[2021-10-27 11:58] LABS: Abs Immature Grans 0.03 10^3/uL (0.0-0.06); Absolute Basophil Count 0.03 10^3/uL (0.0-0.2); Absolute Eosinophil Count 0.03 10^3/uL (0.0-0.7); Absolute Lymphocyte Count 1.09 10^3/uL (1.2-3.4); Absolute Monocyte Count 0.57 10^3/uL (0.1-0.8); Absolute Neutrophil Count 6.23 10^3/uL (1.2-6.7); Basophils % 0.4; Eosinophils % 0.4; HCT 38.6 % (36.0-46.0); HGB 12.4 g/dL (11.2-15.7); Immature Grans % 0.4; Lymphocytes % 13.7; MCH 29.5 pg (27.0-33.0); MCHC 32.1 % (32.0-36.0); MCV 91.9 fL (80-95); MPV 9.9 fL (8.0-11.0); Monocytes % 7.1; Nucleated RBC 0 %; Platelet Count 280 10^3/uL (130-400); RDW 13.6 % (11.7-14.6); RDW-SD 45.8 fL; WBC 7.98 10^3/uL (4.4-10.8)
[2021-10-27] MEDS: Normal Saline 500 ML IV (12:05)
[2021-10-27 12:19] LABS: Source Nasopharynx
[2021-10-27 12:21] LABS: ALT 23 U/L (14-59); AST 24 U/L (15-37); Albumin 3.9 g/dL (3.4-5.0); Alkaline Phosphatase 110 U/L (46-116); Anion Gap 10.3 mmol/L (3-11); BUN 24 mg/dL (7-18); Bilirubin, Total 0.7 mg/dL (0.2-1.0); CO2 26.7 mmol/L (21.0-32.0); CREATININE 0.9 mg/dL (0.55-1.02); Calcium 9.5 mg/dL (8.5-10.1); Chloride 95 mmol/L (98-107); Glucose 100 mg/dL (74-106); Lipase 129 U/L (73-393); Magnesium 1.5 mg/dL (1.8-2.4); NT-proBNP 821 pg/mL (<300); Potassium 4.1 mmol/L (3.5-5.1); Sodium 132 mmol/L (136-145); TSH (W/Ref FT4) 2.29 uIU/mL (0.36-3.74); Total Protein 8.2 g/dL (6.4-8.2); Troponin I < 50 ng/L (<or=60)
[2021-10-27 12:24] LABS: Bilirubin Moderate (Negative); Blood Moderate (Negative); Clarity Sl Cloudy (Clear); Glucose Negative (Negative); Ketones 40 mg/dL (Negative); Leukocyte Esterase Trace (Negative); Nitrite Negative (Negative); Specific Gravity >= 1.030 (1.005-1.025); pH 6.5 (5-8)
[2021-10-27] MEDS: MAGNESIUM SULFATE 1 GM/100 ML BAG IVPB (12:33)
[2021-10-27 12:34] LABS: Epithelial Cells Rare HPF (Negative); Other Cells Negative (Negative); RBC 20-50 HPF (0-2); WBC 20-50 HPF (0-5)
[2021-10-27 12:35] LABS: Bacteria Moderate HPF (Negative); C & S Indicated? Yes; Casts Negative LPF (Negative); Crystals Negative HPF (Negative); Mucus Heavy (Negative)
[2021-10-27 12:40] LABS: D-Dimer 749 ng/mlFEU (<500)
--- NOTE | 2021-10-27 13:14 | DI.CT_ITS ---
Exam(s) CT CHEST PE ABD PELVIS W EXAM: CT CHEST PE ABD PELVIS W CLINICAL HISTORY: SOB. TECHNIQUE: Imaging Protocol: Axial CT angiography was performed with multi-slice acquisition and mu lti-planar and/or 3D reconstructions. CONTRAST MATERIAL: Intravenous: Omnipaque 350 Contrast volume:60 ml COMPARISON: CR XR PORTABLE CHEST AP from 08/05/[address] ABDOMEN PELVIS W from 12/13/[address] CHEST LUNG CANCER SCREEN from 09/07/2021 FINDINGS: CHEST: Pulmonary Arteries: No evidence of filling defect to suggest pulmonary emboli. Tracheobronchial tree: Patent where visualized. Mediastinum and Amarilis: No dominant adenopathy or fluid collection. Pulmonary parenchyma: Evaluation somewhat limited due to expiratory changes. Significant improvement in previously noted bronchial wall thickening and infiltrates. No change nodule left lung base brant uring 8 millimeters. No change 4 millimeter nodule right middle lobe. Underlying emphysematous weldon ges. Pleura: No effusion or pneumothorax. Heart: The heart is not dilated. coronary artery calcifications are seen. Aorta: Thoracic aorta non-dilated. Bones: Left shoulder prosthesis. Degenerative changes and scoliosis in the spine. ABDOMEN: Liver: Normal density. No measurable mass. Portal, Superior Mesenteric, and Splenic Veins: Unremarkable. Gallbladder and Biliary Tract: No radiodense calculus or dilation. Pancreas: Normal density, no abnormal calcifications or inflammatory process. Spleen: Normal. Adrenals: No masses seen. Kidneys: Normal size, contour and axis. No radiodense stones or obstructive uropathy. No masses seen. Few small cysts are noted. Abdominal Aorta: Abdominal portion non-dilated. Atherosclerotic calcification some luminal narrowing . No evidence of dissection. No branch vessel occlusion. Bowel: No obstruction or bowel wall thickening. Appendix is unremarkable. Peritoneal Cavity: No ascites, collection or mesenteric inflammatory response. Lymph Nodes: Within normal limits. Bones: Degenerative changes greatest at L4-5. Degenerative changes in the hips, left greater than ri ght. Soft Tissues: Unremarkable. PELVIS: Bladder: Thick-walled bladder without evidence of mass or calcification.. Reproductive Organs: No change enlarged uterus with fibroids. Lymph Nodes: Within normal limits. Bones: Within normal limits. IMPRESSION: 1. No evidence of pulmonary embolism. Stable pulmonary nodules. Emphysematous changes. No acute inf iltrates. Dependent changes at the lung bases. 2. Thickened wall of urinary bladder. No acute abdominal or pelvic process. RADIATION DOSE DELIVERED: 1,414.72mGy.cm Total DLP DATA REPOSITORY: All CT scans at this facility are submitted to the National Radiology Data Registry (NRDR) Dose Index Registry (DIR) with the [employer] (A[employer]). RADIATION OPTIMIZATION: All CT scans at this facility use at least one of these dose optimization te chniques: automated exposure control; mA and/or kV adjustment per patient size (includes targeted exa ms where dose is matched to clinical indication); or iterative reconstruction.
[2021-10-27 13:20] LABS: COVID-19 PCR Negative (Negative); Influenza A PCR Negative (Negative); Influenza B PCR Negative (Negative); RSV PCR Negative (Negative)
[2021-10-27] MEDS: Omnipaque 350 MG/ML 100 ML BTL IJ (13:35)
[2021-10-27] MEDS: cefTRIAXone 1 GM/50 ML BAG IVPB (14:11)
[2021-10-27 15:07] LABS: Troponin I < 50 ng/L (<or=60)
[2021-10-27] MEDS: Gabapentin 400 MG CAP 800 MG PO (15:34)
--- NOTE | 2021-10-27 17:33 | W.PM.HP.N ---
Date of service: 10/27/21 Time of Service: 17:33 Assessment and Plan Assessment and plan (1) Complicated UTI (urinary tract infection): Status: Acute Assessment and plan: Patient's UTI is complicated by recent instrumentation of her bladder. Urine culture from last week shows a resistant E. coli although it was sensitive to nitrofurantoin and ciprofloxacin. Patient received Rocephin 1 g in the ER. I will put her on ciprofloxacin presuming that it is the same organism but will modify her treatment based on her repeat urine culture and blood cultures. I will ask physical therapy to evaluate her gait and strength and if she is strong enough she should be able to be discharged home tomorrow and continue oral antibiotic treatment of her UTI. I will treat her nausea with Tigan since this will not interact with her ciprofloxacin or her Reglan. (2) Urothelial carcinoma of bladder: Status: Chronic Assessment and plan: Follow-up with Dr. Wiggins upon discharge (3) Dehydration: Status: Acute Assessment and plan: We will treat her with Tigan for antiemetics and give her IV fluids overnight. 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 Davian Wiggins in the urology clinic at [facility]. Patient underwent a transurethral bladder resection of some papillary lesions of the dome of her bladder along w/ mitomycin instillation on 10/14/21. Subsequently she had dysuria and urinary frequency. UA in the office on 10/20/21 demonstrated moderate blood and small leukocytes but negative for nitrites. Urine culture was sent and she was prescribed nitrofurantoin. She did not pick the Rx immediately but when she did she took only one dose and had severe nausea and vomiting. She has chronic nausea and take ondansetron couple times a month. She has hx of GERD and delayed gastric emptying and takes reglan. She called Dr. Wiggins's office to report the side effect of the nitrofurantoin and was told to come to the ER. In the ER she was evaluated including CMP, CBC, blood cultures, repeat urine culture and was given a bolus of iv fluids and Rocephin 1 gm IVPB. The ED provider felt that the patient was too week to return home where she lives alone and recommended admission for iv antbiotics, treatment of her nausea and iv fluids. Patient's co-morbidities include cervical and lumbar spinal stenosis and cervical myelpathy. She has had two cervical spinal surgeries for fusions and had operation on her lumbar spine in 2020. She has depression, HTN, HLD, GERD, bladder cancer, Review of Systems All systems reviewed & are unremarkable except as noted in HPI and below PFSH All Active Problems (Updated 10/27/21 @ 18:24 by Micha Carney) Complicated UTI (urinary tract infection) (Acute) Dehydration (Acute) Anemia (Chronic) Smoker (Chronic) [place] cardiac risk >20% in next 10 years (Chronic) 2020: 32% Arthritis of left glenohumeral joint (Chronic ~07/01/14) Unintentional weight loss (Acute) GERD (gastroesophageal reflux disease) (Chronic) Spinal stenosis of lumbar region with radiculopathy (Acute) Leg edema (Acute) Spasticity (Acute) Coordination impairment (Acute 07/05/16) Sessile colonic polyp (Acute 03/14/18) Medical marijuana use (Chronic) Paresthesias (Chronic) 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 Dr Velazco, [facility] [place] Neurology Magnesium-losing nephropathy (Chronic) very mild; tx spironolactone Delayed gastric emptying (Chronic) mild Urothelial carcinoma of bladder (Chronic) Cervical myelopathy (Chronic) Spinal stenosis, other region (Acute 12/14/11) 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; cervical spondylosis; operated 08/03/16 Spinal stenosis, lumbar region without neurogenic claudication (Acute 12/14/11) Peripheral neuropathy (Acute 07/01/14) Osteopenia (Acute 12/14/11) Osteoporosis wrist, osteopenia hip, normal bone density of spine 2017 osteopenia 2011 Osteoarthritis of spine with radiculopathy, cervical region (Acute 09/05/11) Essential hypertension (Acute 02/26/13) Depression (Chronic 07/01/14) Medical History (Updated 10/27/21 @ 18:24 by Micha Carney) Adhesive capsulitis of left shoulder Injected 12/11/2018 Hx of bacterial pneumonia Hyperlipidemia Neuropathy Spinal stenosis Surgical History Anterior Fusion Cervical Spine C3-C5 (07/31/16) Jul 2016, [facility] [place] Dr. Martinez Arthroplasty of knee Per patient she has not had a TOTAL KNEE Breast, Lumpectomy Cervical spondylosis 11/03/20 C5-[address] Everett Cardoza Day 11/04/20 D/C'd home Colonoscopy - MAC (03/12/18) Colon,transverse,polyp,biopsy - fragment of sessile serrated adenoma. (Dr Neely) H/O cystoscopy (09/06/18) w/transurethral resection of bladder tumors-Dr Wiggins H/O laminectomy (~06/2021) APD-L3-L4 laminectomy, medial fa for decompression of stenosis, lateral disectomy [id number] Hemiarthroplasty (09/07/15) L shoulder Dr Luz History of hemiarthroplasty of left shoulder 09/07/2015 Repair of umbilical hernia Rotator Cuff Repair Status post shoulder hemiarthroplasty Tenotomy and debridement tendon L shoulder (10/25/17) Family History Father Essential hypertension Glaucoma Alzheimer's dementia Social History Smoking/Tobacco Use Status: Current-Occasional Tobacco Type: cigarettes Smoking risk assessment performed?: Yes Alcohol Intake: former Drug use: Daily Substance use type: marijuana Details: marijuana: uses qd. 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 Working smoke detector in home: Yes Fire extinguisher in home: Yes Carbon monox detector in home: Yes Do you feel safe at home: Yes Do you feel safe in your relationship?: Yes Meds Allergies and Home Medications Allergies Allergy/AdvReac Type Severity Reaction Status Date / Time codeine AdvReac Intermediate Nausea Verified 10/27/21 11:17 hydrochlorothiazide AdvReac Mild hypomagnese Verified 10/27/21 11:17 pop duloxetine AdvReac Other (See Verified 10/27/21 11:17 Comment) narcotics AdvReac Intermediate Nausea, Uncoded 10/27/21 11:17 vomiting Home Medications Medication Instructions Recorded Confirmed Type aspirin [Aspir-Low] 81 mg PO DAILY 09/06/18 10/27/21 History multivitamin 1 tab PO HS tab 06/12/19 10/27/21 History calcium carbonate [Tums] 500 mg PO DAILY 04/20/20 10/27/21 History cholecalciferol (vitamin D3) 1,000 unit PO DAILY 04/20/20 10/27/21 History [Vitamin D3] potassium chloride 10 mEq 10 meq PO DAILY #90 cap 01/05/21 10/27/21 Rx capsule,extended release cetirizine 10 mg tablet 10 mg PO BID #180 tab 05/06/21 10/27/21 Rx magnesium oxide 400 mg PO DAILY #90 tab 05/06/21 10/27/21 Rx pravastatin 40 mg tablet 40 mg PO DAILY #90 tab 05/06/21 10/27/21 Rx spironolactone 25 mg tablet 25 mg PO DAILY #90 tab 05/26/21 10/27/21 Rx pantoprazole 20 mg tablet,delayed 20 mg PO BID #180 tab 06/15/21 10/27/21 Rx release ondansetron 4 mg disintegrating 4 mg PO DAILY PRN #14 tab 08/03/21 10/27/21 Rx tablet metoclopramide HCl 5 mg tablet 5 mg PO QACHS #360 tab 08/11/21 10/27/21 Rx gabapentin 800 mg tablet 800 mg PO TID #270 tab 08/16/21 10/27/21 Rx amlodipine 2.5 mg tablet 2.5 mg PO DAILY #14 tab 10/13/21 10/27/21 Rx Exam Narrative Exam Narrative: 71-year-old female who appears older than her stated age who is lying in bed in the semifowler position, alert and oriented x3 HEENT is remarkable for dry mucous membranes. No exudates. Neck is supple no JVD normal carotid pulses no bruits Lungs are clear to auscultation Heart is regular rate and rhythm Abdomen with normal bowel sounds soft mild suprapubic tenderness no guarding or rebound tenderness no masses or bruits Lower extremities with dry skin no peripheral cyanosis or edema. Neuro exam reveals no focal motor deficits and no deficits to light touch over her feet hands legs arms. Manual motor testing shows good strength in both feet and both legs as well as in both hands and arms. Gait and balance were not tested and deferred until the morning when we will have physical therapy do a formal evaluation. Results Imaging Abdomen CT scan report/results: report reviewed (IMPRESSION: 1. No evidence of pulmonary embolism. Stable pulmonary nodules. Emphysematous changes. No acute infiltrates. Dependent changes at the lung bases. 2. Thickened wall of urinary bladder. No acute abdominal or pelvic process. ) CT scan - chest: report reviewed Labs Result diagrams: 10/27/21 11:46 10/27/21 11:46 Labs: Laboratory Results - last 24 hr 10/27/21 10/27/21 10/27/21 11:46 11:46 11:46 WBC 7.98 RBC 4.20 Hgb 12.4 Hct 38.6 MCV 91.9 MCH 29.5 MCHC 32.1 RDW 13.6 Plt Count 280 MPV 9.9 Immature Gran % 0.4 Neutrophils % 78.0 Lymphocytes % 13.7 Monocytes % 7.1 Eosinophils % 0.4 Basophils % 0.4 Nucleated RBC % 0 Absolute Neutrophils 6.23 Absolute Lymphocytes 1.09 L Absolute Monocytes 0.57 Absolute Eosinophils 0.03 Absolute Basophils 0.03 D-Dimer VBG Lactate 1.1 Sodium 132 L Potassium 4.1 Chloride 95 L Carbon Dioxide 26.7 Anion Gap 10.3 BUN 24 H Creatinine 0.9 Estimated GFR/1.73 m2 >= 60.00 Glucose 100 Calcium 9.5 Magnesium 1.5 L Total Bilirubin 0.7 AST 24 ALT 23 Alkaline Phosphatase 110 Troponin I < 50 NT-Pro-B Natriuret Pep 821 H Total Protein 8.2 Albumin 3.9 Lipase 129 TSH 2.29 Urine Color Urine Clarity Urine pH Ur Specific Melbeta Urine Protein Urine Ketones Urine Blood Urine Nitrite Urine Bilirubin Urine Urobilinogen Ur Leukocyte Esterase Urine RBC Urine WBC Ur Epithelial Cells Urine Crystals Urine Bacteria Urine Casts Urine Mucus Urine Other Ur Culture Indicated? Urine Glucose COVID-19 Source SARS-CoV-2 (PCR) Influenza Type A (PCR) Influenza Type B (PCR) RSV (PCR) 10/27/21 10/27/21 10/27/21 11:46 12:03 12:10 WBC RBC Hgb Hct MCV MCH MCHC RDW Plt Count MPV Immature Gran % Neutrophils % Lymphocytes % Monocytes % Eosinophils % Basophils % Nucleated RBC % Absolute Neutrophils Absolute Lymphocytes Absolute Monocytes Absolute Eosinophils Absolute Basophils D-Dimer 749 H VBG Lactate Sodium Potassium Chloride Carbon Dioxide Anion Gap BUN Creatinine Estimated GFR/1.73 m2 Glucose Calcium Magnesium Total Bilirubin AST ALT Alkaline Phosphatase Troponin I NT-Pro-B Natriuret Pep Total Protein Albumin Lipase TSH Urine Color Dark Yellow Urine Clarity Sl Cloudy Urine pH 6.5 Ur Specific Melbeta >= 1.030 H Urine Protein 100 H Urine Ketones 40 H Urine Blood Moderate H Urine Nitrite Negative Urine Bilirubin Moderate H Urine Urobilinogen 1.0 H Ur Leukocyte Esterase Trace H Urine RBC 20-50 H Urine WBC 20-50 H Ur Epithelial Cells Rare Urine Crystals Negative Urine Bacteria Moderate Urine Casts Negative Urine Mucus Heavy Urine Other Negative Ur Culture Indicated? Yes Urine Glucose Negative COVID-19 Source Nasopharynx SARS-CoV-2 (PCR) Negative Influenza Type A (PCR) Negative Influenza Type B (PCR) Negative RSV (PCR) Negative 10/27/21 14:40 WBC RBC Hgb Hct MCV MCH MCHC RDW Plt Count MPV Immature Gran % Neutrophils % Lymphocytes % Monocytes % Eosinophils % Basophils % Nucleated RBC % Absolute Neutrophils Absolute Lymphocytes Absolute Monocytes Absolute Eosinophils Absolute Basophils D-Dimer VBG Lactate Sodium Potassium Chloride Carbon Dioxide Anion Gap BUN Creatinine Estimated GFR/1.73 m2 Glucose Calcium Magnesium Total Bilirubin AST ALT Alkaline Phosphatase Troponin I < 50 NT-Pro-B Natriuret Pep Total Protein Albumin Lipase TSH Urine Color Urine Clarity Urine pH Ur Specific Melbeta Urine Protein Urine Ketones Urine Blood Urine Nitrite Urine Bilirubin Urine Urobilinogen Ur Leukocyte Esterase Urine RBC Urine WBC Ur Epithelial Cells Urine Crystals Urine Bacteria Urine Casts Urine Mucus Urine Other Ur Culture Indicated? Urine Glucose COVID-19 Source SARS-CoV-2 (PCR) Influenza Type A (PCR) Influenza Type B (PCR) RSV (PCR) Last Vital Signs Temp 36.1 C L 10/27/21 16:40 Pulse 90 10/27/21 17:12 Resp 18 10/27/21 16:40 BP 190/99 H 10/27/21 16:40 Pulse Ox 95 10/27/21 16:40
[2021-10-27] MEDS: MAGNESIUM SULFATE 2 GM/50 ML BAG IVPB (18:14)
[2021-10-27] MEDS: Enoxaparin 40 MG/0.4 ML SYR SC (18:14)
[2021-10-27] MEDS: Lactated Ringers 1,000 ML 85 ML IV (18:16)
[2021-10-27] MEDS: Trimethobenzamide 200 MG/2 ML VIAL IM (18:21)
[2021-10-27] MEDS: Normal Saline Flush 10 ML SYR (18:22)
[2021-10-27] MEDS: Pravastatin 40 MG TAB PO (19:54)
[2021-10-27] MEDS: Pantoprazole 20 MG TABCR PO (19:55)
[2021-10-27] MEDS: Phenazopyridine 200 MG TAB PO (19:55)
[2021-10-27] MEDS: Ciprofloxacin 500 MG TAB PO (19:56)
[2021-10-27] MEDS: Cetirizine 10 MG TAB PO (19:57)
[2021-10-27] MEDS: Gabapentin 400 MG CAP ×2 (19:57)
[2021-10-27] MEDS: hydrALAZINE 10 MG TAB PO (21:32)
[2021-10-27] MEDS: Metoclopramide 10 MG TAB 5 MG PO (21:33)
[2021-10-27] MEDS: Acetaminophen 325 MG TAB PO (21:33)
[2021-10-27] MEDS: Multivitamin TAB 1 TAB PO (21:34)
[2021-10-28 00:18] VITALS: PULSE 86
[2021-10-28 03:18] VITALS: BP 157/77; PULSE 89; RESP 17; TEMP 36.6; O2SAT 94
[2021-10-28] MEDS: Normal Saline Flush 10 ML SYR IVP (06:42)
[2021-10-28 06:54] LABS: Anion Gap 10.9 mmol/L (3-11); BUN 21 mg/dL (7-18); CO2 24.1 mmol/L (21.0-32.0); CREATININE 0.9 mg/dL (0.55-1.02); Calcium 8.4 mg/dL (8.5-10.1); Chloride 100 mmol/L (98-107); Glucose 89 mg/dL (74-106); Potassium 3.5 mmol/L (3.5-5.1); Sodium 135 mmol/L (136-145)
[2021-10-28 07:13] VITALS: PULSE 83
[2021-10-28 07:52] VITALS: BP 150/81; PULSE 80; RESP 18; TEMP 36.5; O2SAT 94
[2021-10-28] MEDS: Calcium Carbonate *TUMS* 500 MG CHEW PO (07:54)
[2021-10-28] MEDS: Pantoprazole 20 MG TABCR PO (07:54)
[2021-10-28] MEDS: Cetirizine 10 MG TAB PO (07:54)
[2021-10-28] MEDS: Phenazopyridine 200 MG TAB PO (07:54)
[2021-10-28] MEDS: Metoclopramide 10 MG TAB 5 MG PO (07:54)
[2021-10-28] MEDS: Cholecalciferol (Vitamin D3) 1,000 UNIT TAB 1000 UNITS PO (07:54)
[2021-10-28] MEDS: amLODIPine 2.5 MG TAB PO ×2 (07:55→08:27)
[2021-10-28] MEDS: Aspirin E.C. 81 MG TABEC PO (07:55)
[2021-10-28] MEDS: Potassium Chloride 10 MEQ CAPCR PO (07:55)
[2021-10-28] MEDS: Ciprofloxacin 500 MG TAB PO (07:55)
[2021-10-28] MEDS: Magnesium Oxide 400 MG TAB PO (07:55)
[2021-10-28] MEDS: Gabapentin 800 MG TAB PO (08:04)
--- NOTE | 2021-10-28 08:26 | PDOC.CMIN ---
- If Service Date Differs Date of service: 10/28/21 Time of Service: 08:26 Care Management Initial Assess REASON FOR HOSPITALIZATION:: UTI PAST MEDICAL HISTORY/PAST SURGICAL HISTORY:: All Active Problems (Updated 10/27/21 @ 18:24 by Micha Carney). Complicated UTI (urinary tract infection) (Acute). Dehydration (Acute). Anemia (Chronic). Smoker (Chronic). [place] cardiac risk >20% in next 10 years (Chronic). 2020: 32%. Arthritis of left glenohumeral joint (Chronic ~07/01/14). Unintentional weight loss (Acute). GERD (gastroesophageal reflux disease) (Chronic). Spinal stenosis of lumbar region with radiculopathy (Acute). Leg edema (Acute). Spasticity (Acute). Coordination impairment (Acute 07/05/16). Sessile colonic polyp (Acute 03/14/18). Medical marijuana use (Chronic). Paresthesias (Chronic). Duplay's periarthritis syndrome (Acute). 10/11/18 Dr Velazco, [facility] [place] Neurology. Magnesium-losing nephropathy (Chronic). very mild; tx spironolactone. Delayed gastric emptying (Chronic). mild. Urothelial carcinoma of bladder (Chronic). Cervical myelopathy (Chronic). Spinal stenosis, other region (Acute 12/14/11). 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 Spinal stenosis, lumbar region without neurogenic claudication (Acute 12/14/11). Peripheral neuropathy (Acute 07/01/14). Osteopenia (Acute 12/14/11). Osteoporosis wrist, osteopenia hip, normal bone density of spine 2016. osteopenia 2011. Osteoarthritis of spine with radiculopathy, cervical region (Acute 09/05/11). Essential hypertension (Acute 02/26/13). Depression (Chronic 07/01/14). Medical History (Updated 10/27/21 @ 18:24 by Micha Carney). Adhesive capsulitis of left shoulder. Injected 12/11/2018. Hx of bacterial pneumonia. Hyperlipidemia. Neuropathy. Spinal stenosis. Surgical History . 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 Jul 2016, [facility] [place] Dr. Martinez. Arthroplasty of knee. Per patient she has not had a TOTAL KNEE. Breast, Lumpectomy. Cervical spondylosis. 11/03/[address] C5-[address] Everett Meehan Cardoza . 11/04/20 D/C'd home. Colonoscopy - MAC (03/12/18). Colon,transverse,polyp,biopsy - fragment of sessile serrated adenoma. (Dr Neely). H/O cystoscopy (09/06/18). w/transurethral resection of bladder tumors-Dr Wiggins. H/O laminectomy (~06/2021). APD-L3-L4 laminectomy, medial fa for decompression of stenosis, lateral disectomy [id number]. Hemiarthroplasty (09/07/15). L shoulder. Dr Luz. History of hemiarthroplasty of left shoulder. 09/07/2015. Repair of umbilical hernia. Rotator Cuff Repair. Status post shoulder hemiarthroplasty. Tenotomy and debridement tendon L shoulder (10/25/17). Family History . Father. Essential hypertension. Glaucoma. Alzheimer's dementia PREVIOUS FUNCTIONAL STATUS/SOCIAL/FAMILY SUPPORTS:: Belén lives alone in an apartment in [facility]. Belén does not have any children but she identifies 2 close friends and neighbors who are very supportive. She is independent at baseline. CURRENT FUNCTIONAL STATUS:: Belén was dressed and ready for discharge when CM met with her this morning. She was pleasant and stated that she is feeling much, much better and was able to ambulate with PT. ADVANCE DIRECTIVES:: none on file Has patient been provided with info about the portal/API?: Yes Did the patient sign up for the portal?: No CODE STATUS:: Full Code INSURANCE COVERAGE / FINANCIAL ISSUES:: Medicare. [employer] CURRENT HOME/COMMUNITY SERVICES/EQUIPMENT:: None currently but requested Meals on Wheels. CM sent a referral to [facility] [place] [facility]. PRIMARY CARE PHYSICIAN:: Mary Dorsey POTENTIAL DISCHARGE NEEDS:: follow up with PCP and plan of care PATIENT/FAMILY EDUCATION NEEDS:: Review of discharge instructions, activity, limitations, medications, follow up plan, discuss [employer] TRANSPORTATION:: via private vehicle with a friend PLAN:: Belén will be discharged home with a referral to [facility] for Meals [facility] Wheels. She will follow up with her community providers and plan of care and transport with a friend.
--- NOTE | 2021-10-28 10:30 | PT.INIE ---
Date of service: 10/28/21 Time of Service: 10:30 PT Notes Visit Reasons: UTI, generalized weakness, ambulatory dysfunction Physical Therapy Inpatient Initial Evaluation Date: 10/28/2021 Referring Doctor: Micha Carney MD PT Orders: PT CONSULT: Safety consult for D/C Precautions: Fall. Standard. Activity as tolerated. Patient Profile/Admitting Diagnosis: Belén is a female who presented to the ED with generalized weakness and with diagnoses of complicated UTI, urothelial cancer of bladder, and dehydration. PMHX: All Active Problems (Updated 10/27/21 @ 18:24 by Micha Carney) Complicated UTI (urinary tract infection) (Acute) Dehydration (Acute) Anemia (Chronic) Smoker (Chronic) [place] cardiac risk >20% in next 10 years (Chronic) 2020: 32% Arthritis of left glenohumeral joint (Chronic ~07/01/14) Unintentional weight loss (Acute) GERD (gastroesophageal reflux disease) (Chronic) Spinal stenosis of lumbar region with radiculopathy (Acute) Leg edema (Acute) Spasticity (Acute) Coordination impairment (Acute 07/05/16) Sessile colonic polyp (Acute 03/14/18) Medical marijuana use (Chronic) Paresthesias (Chronic) 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 Dr Velazco, [facility] [place] Neurology Magnesium-losing nephropathy (Chronic) very mild; tx spironolactone Delayed gastric emptying (Chronic) mild Urothelial carcinoma of bladder (Chronic) Cervical myelopathy (Chronic) Spinal stenosis, other region (Acute 12/14/11) 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; cervical spondylosis; operated 08/03/16 Spinal stenosis, lumbar region without neurogenic claudication (Acute 12/14/11) Peripheral neuropathy (Acute 07/01/14) Osteopenia (Acute 12/14/11) Osteoporosis wrist, osteopenia hip, normal bone density of spine 2016 osteopenia 2011 Osteoarthritis of spine with radiculopathy, cervical region (Acute 09/05/11) Essential hypertension (Acute 02/26/13) Depression (Chronic 07/01/14) Medical History (Updated 10/27/21 @ 18:24 by Micha Carney) Adhesive capsulitis of left shoulder Injected 12/11/2018 Hx of bacterial pneumonia Hyperlipidemia Neuropathy Spinal stenosis Surgical History Anterior Fusion Cervical Spine C3-C5 (07/31/16) Jul 2016, [facility] [place] Dr. Martinez Arthroplasty of knee Per patient she has not had a TOTAL KNEE Breast, Lumpectomy Cervical spondylosis 11/03/20 C5-[address] Everett Cardoza Day 11/04/20 D/C'd home Colonoscopy - MAC (03/12/18) Colon,transverse,polyp,biopsy - fragment of sessile serrated adenoma. (Dr Neely) H/O cystoscopy (09/06/18) w/transurethral resection of bladder tumors-Dr Wiggins H/O laminectomy (~06/2021) APD-L3-L4 laminectomy, medial fa for decompression of stenosis, lateral disectomy [id number] Hemiarthroplasty (09/07/15) L shoulder Dr Luz History of hemiarthroplasty of left shoulder 09/07/2015 Repair of umbilical hernia Rotator Cuff Repair Status post shoulder hemiarthroplasty Tenotomy and debridement tendon L shoulder (10/25/17) Social History/Home Situation: Lives alone in a private home but has good family and friend support [facility]. States that she has ahd 3 falls in the past year. HOlds onto furnitures at home if she needs it. Equipment Owned/DME: SPC, FWW Subjective: Belén states that she feels a lot better now and feels safe to go home today. She indicates that she is a little wiggly at baseline and uses furnitures at her house for support as needed. Reports that she has a L shoulder surgery coming up. States that she has had 3 falls in the past year. Hopes to continue OP PT twice a week upon dischargefrom this hospital. Objective: General Observation: Seaetd on chair. In NAD. Dressed and ready to go home later this afternoon she hopes. Mental Status: Alert and oriented as to person, place, time, and purpose. Able to pay attention, focus, and respond appropriately. Pain: Denies Vital Signs: WNL ROM: Right Upper Extremity: Shoulder Flexion WFL. Shoulder abduction WFL. Elbow flexion WFL. Wrist flexion WFL. Functional opening and closing of hand WFL. Left Upper Extremity: Shoulder Flexion lacks the last 25% of active range. Shoulder abduction lacks the last 25% of active range. Elbow flexion WFL. Wrist flexion WFL. Functional opening and closing of hand WFL. Right Lower Extremity: Hip flexion WFL. Hip abduction WFL. Knee flexion WFL. Ankle dorsiflexion to neutral only. Ankle plantarflexion WFL. Left Lower Extremity: Hip flexion WFL. Hip abduction WFL. Knee flexion WFL. Ankle dorsiflexion to neutral only. Ankle plantarflexion WFL. Strength: Right Upper Extremity: Shoulder flexors 4/5. Shoulder abductors 4/5. Elbow flexors 5/5. Elbow extensors 5/5. Clinic Office Manager strong. Left Upper Extremity: Shoulder flexors 3-/5. Shoulder abductors 3-/5. Elbow flexors 5/5. Elbow extensors 5/5. Clinic Office Manager strong. Right Lower Extremity: Hip flexors 4/5. Hip abductors 4/5. Knee flexors 5/5. Knee extensors 5/5. Ankle dorsiflexors 3-/5. Ankle plantarflexors 5/5. Left Lower Extremity: Hip flexors 4/5. Hip abductors 45. Knee flexors 5/5. Knee extensors 5/5. Ankle dorsiflexors 3-/5. Ankle plantarflexors 5/5. Bed Mobility/Transfers: Rolling independent Supine to sit independent Sit to supine independent Sit to stand independent Stand to sit independent Bed to reclining chair independent Reclining chair to bed independent Gait: Instructed patient with level surface ambulation of 300 feet requiring supervision assist. Jaylin decreased. Postural sway has a tendency to increase which can bring her COG out of her RYAN and make her loose balance a little bit. She is able to antcipate and compensates for this by holding onto wall for support. At home, she states that she uses a cane or holds onto furnitures as needed. Minimal path deviation. Balance: Static Sitting: Normal Dynamic Sitting: Normal Static Standing: Fair Dynamic Standing: Fair Special Tests: Mobility Limitations Standardized Measure [facility] AM-PAC 6 clicks Basic Mobility Inpatient Short Form: Raw Score: 23 CMS Score: 11% deficit Informed Consent/Education: Patient was instructed in purpose of PT consult and plan of care. Agreeable to proceed with established PT POC to achieve personal goals. Assessment: Patient is back to mobility baseline and hopes to continue with outpatient PT for balance skilling and gait training to increase gait stability. She has assistive devices at home which she can use as needed to reduce fall risk. She good community support. Patient presents with clinical signs and symptoms consistent with current/admitting diagnoses that have resulted to mobility limitations, gait instability, generalized weakness, and overall ADL decline as demonstrated by the following impairment level findings: 1. Decreased strength to L shoulder and B LE major muscle groups 2. Impaired standing balance 3. Limitation of joint range of motion in L shoulder and B ankles Impairments are contributing to the following functional limitations: 1. Increased postural sway 2. Increased completion time for mobility ADL performance 3. Increased risk for falls 4. Difficulty with managing steps alone safely Patient is assessed as a 66235 low complexity based on the following: History: 71-year-old female with past medical history as indicated above Examination: Demonstrable impairment in strength, balance, and mobility level with underlying impairments and functional limitations as exhibited above as well as deficit score of 11% utilizing the [facility] Mobility Inpatient Short Form Presentation: Stable Decision Makin low complexity Goals: N/A. PT evaluation only for safe D/C home recommendations. Plan of Care/Treatment Plan: N/A. PT evaluation only for safe D/C home recommendations. DISCHARGE RECOMMENDATIONS: [] Home with no services [] [] Home with services [specify] [X] Home with outpatient PT. Home when medically cleared by hospitalist. Continue with outpatient PT services to increase stability of gait. [] SNF for continued rehabilitation [] [] Paint Prep Technician Care [] [] SNF versus LTC based on ability to participate and progress [] TREATMENT CODE/TIME: 88755 x 15 minutes beginning at 10:30 AM. Thank you for the opportunity to participate in the care of this patient. Anjali Ludwig PT, DPT, CLT [facility] [place], [place]
--- NOTE | 2021-10-28 10:47 | DSE_ITS ---
Date of service: 10/28/21 Time of Service: 10:47 DS: Diagnosis Discharge Diagnosis (1) Complicated UTI (urinary tract infection): Status: Resolved (2) Urothelial carcinoma of bladder: Status: Chronic (3) Dehydration: Status: Resolved Discharge Plan Disposition Patient Disposition: HOME Condition: Good Discharge Details Reason For Visit: UTI, generalized weakness, ambulatory dysfunction Admit Date/Time: 10/27/21 15:15 Admit Provider: Micha Carney Attending Provider: Micha Carney Primary Care Provider: Mary Dorsey Hospital Course Hospital Course: Patient underwent recent cystoscopy and transurethral bladder resection of low- grade urothelial carcinoma the bladder. This was performed by Dr. Davian Wiggins on October 14, 2021. Patient subsequently developed symptoms of urinary tract infection and was seen in the urology office on October 20, 2021 and prescribed nitrofurantoin. This caused the patient's severe nausea and vomiting. Patient presented to the emergency department feeling weak and unable to ambulate and having increased urinary frequency and dysuria. Blood and urine cultures were obtained and patient was started empirically on Rocephin 1 g IV in the ER however I switched over to oral ciprofloxacin 500 mg p.o. twice daily. She was given IV fluids overnight and felt markedly improved and was discharged home on a 5-day course of ciprofloxacin 5 mg p.o. twice daily with instructions to follow-up with Dr. Wiggins next week. Home Meds and New Rx's Prescriptions: New ciprofloxacin HCl [Cipro] 500 mg tablet 500 mg PO BID Qty: 10 RF: 0 Continued potassium chloride 10 mEq capsule, extended release 10 meq PO DAILY Qty: 90 RF: 3 Hold Instructions: Home Medication placed on hold at Doctor's office amlodipine 2.5 mg tablet 2.5 mg PO DAILY Qty: 14 RF: 0 gabapentin 800 mg tablet 800 mg PO TID Qty: 270 RF: 3 pantoprazole 20 mg tablet,delayed release (DR/EC) 20 mg PO BID Qty: 180 RF: 3 multivitamin [Daily Multi-Vitamin] Tablet 1 tab PO HS RF: 0 cetirizine [Zyrtec] 10 mg tablet 10 mg PO BID Qty: 180 RF: 3 pravastatin 40 mg tablet 40 mg PO DAILY Qty: 90 RF: 3 magnesium oxide 400 mg magnesium tablet 400 mg PO DAILY Qty: 90 RF: 3 spironolactone 25 mg tablet 25 mg PO DAILY Qty: 90 RF: 3 ondansetron 4 mg tablet,disintegrating 4 mg PO DAILY PRN (Reason: nausea and vomiting) Qty: 14 RF: 3 metoclopramide HCl 5 mg tablet 5 mg PO QACHS Qty: 360 RF: 3 calcium carbonate [Tums] 200 mg calcium (500 mg) Tablet,Chewable 500 mg PO DAILY RF: 0 cholecalciferol (vitamin D3) [Vitamin D3] 25 mcg (1,000 unit) Capsule 1,000 unit PO DAILY RF: 0 aspirin [Aspir-Low] 81 mg Tablet,Delayed Release (Dr/Ec) 81 mg PO DAILY RF: 0 Discharge Instructions Instructions: Urinary Tract Infection in Women (DC) Additional Instructions: finish all of your antibiotics (Cipro), make a follow up w/ Dr. Wiggins's office in the next 1 to 2 weeks Stand Alone Forms: Nursing Discharge Form Referrals: Davian Wiggins MD [ [facility] STAFF PHYSICIAN] - 11/02/21 3:00 pm Mary Dorsey MD [Primary Care Provider] - 11/09/21 11:45 am Activity:: Activity as Tolerated Equipment/Supplies:: No Equipment Needed Diet:: Normal Diet Discharge Orders Discharge Orders: Discharge Order (Routine); Ordered 10/28/21 Ordered By: Micha Carney Discharge Data Discharge Date/Time-TO BE ENTERED AT DEPARTURE: 10/28/21 11:27 DS: Summary Time Spent with Patient providing and/or coordinating discharge services: Less than 30 minutes Status at Discharge Functional status at discharge: independent ambulation Overall status at discharge: patient is back to baseline Mental Status: mental status grossly normal Speech and Movement: speech and movement normal Mood: congruent mood Affect: normal affect Exam Narrative Exam Narrative: Belén says she is feels 1000% better. No lightheadedness no dizziness no nausea or vomiting. She is voiding well. She ambulated around the room for me without loss of balance and did not require any assistance. She would like to return home and since she is tolerating oral antibiotics I think she can complete a 5-day course of ciprofloxacin for her UTI. I told her that the repeat urine culture results and blood culture results are still pending but that Dr. Wiggins will have access to them. She will be called if there is any change in the zainab growing in her urine. I based her treatment on her most recent urine culture from October 20, 2021 which she was grown E. coli. Psych Mental Status: mental status grossly normal Speech and Movement: speech and movement normal Mood: congruent mood Affect: normal affect DS: Data Vitals/I&O Vitals and I&O: Vital Signs Temperature 36.5 C 10/28/21 07:52 Temperature Source Tympanic 10/28/21 07:52 Pulse 80 10/28/21 07:52 Pulse Rhythm Regular 10/28/21 08:00 Pulse 77 10/27/21 15:47 Respiratory Rate 18 10/28/21 07:52 Respiratory Effort Non-Labored 10/28/21 08:00 Respiratory Depth Normal 10/28/21 08:00 Respiratory Pattern Normal 10/28/21 08:00 Blood Pressure 150/81 H 10/28/21 07:52 Blood Pressure Mean 95 10/27/21 15:46 Blood Pressure Position Sitting 10/27/21 11:12 Pulse Oximetry 94 10/28/21 07:52 Oxygen Delivery Method Room Air 10/28/21 07:52 Oxygen Flow Rate 0 10/28/21 07:52 Pain Level 0 10/28/21 07:52 Intake & Output 10/27/21 10/27/21 10/28/21 11:59 23:59 11:59 Intake Total 700 / 700 1000 / 1000 Output Total 250 / 250 600 / 600 Balance 450 / 450 400 / 400 Weight 54.9 kg 49.6 kg Intake: IV 700 / 700 1000 / 1000 Output: Urine 250 / 250 600 / 600 Other: Urine Color [place] Urine Appearance Clear Clear Urine Odor Normal Normal Comment pt on pyridium Due to meds Voiding Methods Toilet Toilet Data Completed and Pending Labs on day of discharge: Labs from last 24 hours 10/28/21 10/27/21 10/27/21 06:13 14:40 12:10 WBC RBC Hgb Hct MCV MCH MCHC RDW Plt Count MPV Immature Gran % Neutrophils % Lymphocytes % Monocytes % Eosinophils % Basophils % Nucleated RBC % Absolute Neutrophils Absolute Lymphocytes Absolute Monocytes Absolute Eosinophils Absolute Basophils D-Dimer VBG Lactate Sodium 135 L Potassium 3.5 Chloride 100 Carbon Dioxide 24.1 Anion Gap 10.9 BUN 21 H Creatinine 0.9 Estimated GFR/1.73 m2 >= 60.00 Glucose 89 Calcium 8.4 L Magnesium 2.0 Total Bilirubin AST ALT Alkaline Phosphatase Troponin I < 50 NT-Pro-B Natriuret Pep Total Protein Albumin Lipase TSH Urine Color Dark Yellow Urine Clarity Sl Cloudy Urine pH 6.5 Ur Specific [place] >= 1.030 H Urine Protein 100 H Urine Ketones 40 H Urine Blood Moderate H Urine Nitrite Negative Urine Bilirubin Moderate H Urine Urobilinogen 1.0 H Ur Leukocyte Esterase Trace H Urine RBC 20-50 H Urine WBC 20-50 H Ur Epithelial Cells Rare Urine Crystals Negative Urine Bacteria Moderate Urine Casts Negative Urine Mucus Heavy Urine Other Negative Ur Culture Indicated? Yes Urine Glucose Negative COVID-19 Source SARS-CoV-2 (PCR) Influenza Type A (PCR) Influenza Type B (PCR) RSV (PCR) 10/27/21 10/27/21 10/27/21 12:03 11:46 11:46 WBC 7.98 RBC 4.20 Hgb 12.4 Hct 38.6 MCV 91.9 MCH 29.5 MCHC 32.1 RDW 13.6 Plt Count 280 MPV 9.9 Immature Gran % 0.4 Neutrophils % 78.0 Lymphocytes % 13.7 Monocytes % 7.1 Eosinophils % 0.4 Basophils % 0.4 Nucleated RBC % 0 Absolute Neutrophils 6.23 Absolute Lymphocytes 1.09 L Absolute Monocytes 0.57 Absolute Eosinophils 0.03 Absolute Basophils 0.03 D-Dimer 749 H VBG Lactate Sodium Potassium Chloride Carbon Dioxide Anion Gap BUN Creatinine Estimated GFR/1.73 m2 Glucose Calcium Magnesium Total Bilirubin AST ALT Alkaline Phosphatase Troponin I NT-Pro-B Natriuret Pep Total Protein Albumin Lipase TSH Urine Color Urine Clarity Urine pH Ur Specific [place] Urine Protein Urine Ketones Urine Blood Urine Nitrite Urine Bilirubin Urine Urobilinogen Ur Leukocyte Esterase Urine RBC Urine WBC Ur Epithelial Cells Urine Crystals Urine Bacteria Urine Casts Urine Mucus Urine Other Ur Culture Indicated? Urine Glucose COVID-19 Source Nasopharynx SARS-CoV-2 (PCR) Negative Influenza Type A (PCR) Negative Influenza Type B (PCR) Negative RSV (PCR) Negative 10/27/21 10/27/21 11:46 11:46 WBC RBC Hgb Hct MCV MCH MCHC RDW Plt Count MPV Immature Gran % Neutrophils % Lymphocytes % Monocytes % Eosinophils % Basophils % Nucleated RBC % Absolute Neutrophils Absolute Lymphocytes Absolute Monocytes Absolute Eosinophils Absolute Basophils D-Dimer VBG Lactate 1.1 Sodium 132 L Potassium 4.1 Chloride 95 L Carbon Dioxide 26.7 Anion Gap 10.3 BUN 24 H Creatinine 0.9 Estimated GFR/1.73 m2 >= 60.00 Glucose 100 Calcium 9.5 Magnesium 1.5 L Total Bilirubin 0.7 AST 24 ALT 23 Alkaline Phosphatase 110 Troponin I < 50 NT-Pro-B Natriuret Pep 821 H Total Protein 8.2 Albumin 3.9 Lipase 129 TSH 2.29 Urine Color Urine Clarity Urine pH Ur Specific [place] Urine Protein Urine Ketones Urine Blood Urine Nitrite Urine Bilirubin Urine Urobilinogen Ur Leukocyte Esterase Urine RBC Urine WBC Ur Epithelial Cells Urine Crystals Urine Bacteria Urine Casts Urine Mucus Urine Other Ur Culture Indicated? Urine Glucose COVID-19 Source SARS-CoV-2 (PCR) Influenza Type A (PCR) Influenza Type B (PCR) RSV (PCR) 10/27/21 12:10 Urine - Reflex from Urine Culture - Pending 10/27/21 11:46 Blood Blood Culture - Pending 10/27/21 11:46 Blood Blood Culture - Pending Preliminary micro results at discharge 10/27/21 12:10 Urine Culture - Pending Urine - Reflex from Ua 10/27/21 11:46 Blood Culture - Pending Blood 10/27/21 11:46 Blood Culture - Pending Blood PFSH All Active Problems (Updated 10/28/21 @ 10:48 by Micha Carney) Anemia (Chronic) Smoker (Chronic) [place] cardiac risk >20% in next 10 years (Chronic) 2020: 32% Arthritis of left glenohumeral joint (Chronic ~07/01/14) Unintentional weight loss (Acute) GERD (gastroesophageal reflux disease) (Chronic) Spinal stenosis of lumbar region with radiculopathy (Acute) Leg edema (Acute) Spasticity (Acute) Coordination impairment (Acute 07/05/16) Sessile colonic polyp (Acute 03/14/18) Medical marijuana use (Chronic) Paresthesias (Chronic) 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 Dr Velazco, [facility] [place] Magnesium-losing nephropathy (Chronic) very mild; tx spironolactone Delayed gastric emptying (Chronic) mild Urothelial carcinoma of bladder (Chronic) Cervical myelopathy (Chronic) Spinal stenosis, other region (Acute 12/14/11) 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; cervical spondylosis; operated 08/03/16 Spinal stenosis, lumbar region without neurogenic claudication (Acute 12/14/11) Peripheral neuropathy (Acute 07/01/14) Osteopenia (Acute 12/14/11) Osteoporosis wrist, osteopenia hip, normal bone density of spine 2017 osteopenia 2012 Osteoarthritis of spine with radiculopathy, cervical region (Acute 09/05/11) Essential hypertension (Acute 02/26/13) Depression (Chronic 07/01/14) Medical History (Updated 10/28/21 @ 10:48 by Micha Carney) Adhesive capsulitis of left shoulder Injected 12/11/2018 Hx of bacterial pneumonia Hyperlipidemia Neuropathy Spinal stenosis Surgical History Anterior Fusion Cervical Spine C3-C5 (07/31/16) Jul 2016, [facility] [place]. Martinez Arthroplasty of knee Per patient she has not had a TOTAL KNEE Breast, Lumpectomy Cervical spondylosis 11/03/20 C5-[address] Everett Cardoza Day 11/04/20 D/C'd home Colonoscopy - MAC (03/12/18) Colon,transverse,polyp,biopsy - fragment of sessile serrated adenoma. (Dr Neely) H/O cystoscopy (09/06/18) w/transurethral resection of bladder tumors-Dr Wiggins H/O laminectomy (~06/2021) APD-L3-L4 laminectomy, medial fa for decompression of stenosis, lateral disectomy [id number] Hemiarthroplasty (09/07/15) L shoulder Dr Luz History of hemiarthroplasty of left shoulder 09/07/2015 Repair of umbilical hernia Rotator Cuff Repair Status post shoulder hemiarthroplasty Tenotomy and debridement tendon L shoulder (10/25/17) Family History Father Essential hypertension Glaucoma Alzheimer's dementia Social History Smoking/Tobacco Use Status: Current-Occasional Tobacco Type: cigarettes Smoking risk assessment performed?: Yes Alcohol Intake: former Drug use: Daily Substance use type: marijuana Details: marijuana: uses qd. Marijuana: t-3, couple hits Household members: none Housing: house Number of Children: 0 Pets and animals: Yes Pets and animals: cat(s) and dog(s) Current gender identity: female What type of physical activity do you participate in: none and other Details: PT 2 xweek Frequency: 1-2 times per week Seatbelt use: always Drive intox or ride w/intox chain saw driver: No Working smoke detector in home: Yes Fire extinguisher in home: Yes Carbon monox detector in home: Yes Do you feel safe at home: Yes Do you feel safe in your relationship?: Yes
--- NOTE | 2021-10-28 11:55 | PDOC.CMDIS ---
- If Service Date Differs Date of service: 10/28/21 Time of Service: 11:55 LACE Index Scoring Tool - Questions: Length of Stay (in days): 1 Acuity (Admit via E.D.?): Yes Comorbidities: Any Tumor E.D. Visits: 1 - Answers: Total Score: 7 Risk of Readmission: Low Risk Care Management Discharge Reason for Hospitalization: UTI Discharge Plan: Belén will be discharged home with a referral to [facility]. She will follow up with her community providers and plan of care and transport with a friend. Patient/Family Education Needs: Belén will be discharged home with a referral to [facility]. She will follow up with her community providers and plan of care and transport with a friend.
== END 2021-10-28 11:27 | disposition home or self-care (01) ==
LOC: ER 11:14 → MS 16:34
PROVIDERS: Admitting Provider Internal Medicine; Emergency Provider Student in an Organized Health Care Education/Training Program; PCP Internal Medicine; Visit Provider Internal Medicine
DX: N39.0 Urinary tract infection, site not specified (principal); E86.0 Dehydration; R06.02 Shortness of breath; C67.9 Malignant neoplasm of bladder, unspecified; B96.20 Unspecified Escherichia coli [E. coli] as the cause of diseases classified elsewhere; R53.1 Weakness; F17.210 Nicotine dependence, cigarettes, uncomplicated; D64.9 Anemia, unspecified; K21.9 Gastro-esophageal reflux disease without esophagitis; R63.4 Abnormal weight loss; Z68.1 Body mass index [BMI] 19.9 or less, adult; G62.9 Polyneuropathy, unspecified; F32.A Depression, unspecified; I10 Essential (primary) hypertension; M81.0 Age-related osteoporosis without current pathological fracture; M48.061 Spinal stenosis, lumbar region without neurogenic claudication; Z20.822 Contact with and (suspected) exposure to COVID-19; R05.9 Cough, unspecified
CPT/HCPCS: 36415; 71275; 74177; 80048; 80053; 83690; 87040; 87637; 93005; 96361; 96365; 96367; 97162; 99285; J1650; 71045; 81003; 81015; 83605; 83735; 83880; 84443; 84484; 85025; 85379; 87086; 93010; 99217; 99218; G0378; J0696; J3475; J3490

== ENCOUNTER → 2022-01-03 12:18 | Outpatient (BNVA) | payer MEDICARE, OTHER, SELFPAY | PROVIDERS: PCP Internal Medicine; Visit Provider Psychiatry & Neurology Neurology | DX: G95.89 Other specified diseases of spinal cord (principal); Z98.890 Other specified postprocedural states; R53.1 Weakness; I10 Essential (primary) hypertension; R20.2 Paresthesia of skin | CPT/HCPCS: 99214 ==

== ENCOUNTER 2022-01-17 03:11 | Outpatient (CLI) | payer MEDICARE, OTHER, SELFPAY ==
--- NOTE | 2022-01-17 07:45 | DI.MRI_ITS ---
Exam(s) MR LUMBAR SPINE WO EXAM: MR LUMBAR SPINE WO CLINICAL HISTORY: increase pain,post op, weakness,paresthesias,m48.061,r20.2,r53.1. TECHNIQUE: Multiplanar multisequence MRI of the Lumbar spine was performed. COMPARISON: MR MR LUMBAR SPINE WO from 02/23/2021 FINDINGS: The examination is limited due to patient motion artifact. Bones: The last intervertebral disc space is designated the L5/S1 level for the numbering purpose of this examination. The vertebral body heights are well maintained. There is a mild left convex scoli osis. Degenerative endplate signal changes are seen at L3-4 and L4-L5. Cord: The conus tip ends at the L1 level. It is of normal size and signal intensity. T12-L1: No disc herniations or bulges are present. No central spinal canal or neural foraminal stenos is. L1-2: No disc herniations or bulges are present. No central spinal canal or neural foraminal stenosis . L2-3: No disc herniations or bulges are present. No central spinal canal or neural foraminal stenosis . L3-4: There is a diffuse disc bulge. Hypertrophic changes of the facets are seen there is mild narro wing of the central spinal canal. There is marked right and moderately severe left neural foraminal stenosis. L4-5: There is a diffuse disc bulge. There are hypertrophic changes of the facets. The findings res ult in mild central spinal canal stenosis. There is moderate bilateral neural foraminal stenosis. L5-S1: There is a diffuse disc bulge. Degenerative changes of the facets are present. There is mild narrowing of the central spinal canal. No significant neural foraminal stenosis is present. Soft tissues: The visualized SI joints and sacrum are well maintained. The paraspinal soft tissues ar e unremarkable. IMPRESSION: 1. Examination is suboptimal due to patient motion artifact and patient positioning. 2. Multilevel degenerative changes in the lumbar spine resulting in central spinal canal and neural f oraminal stenosis as described above. DATA REPOSITORY:
== END 2022-01-17 03:31 ==
PROVIDERS: PCP Internal Medicine; Visit Provider Psychiatry & Neurology Neurology
DX: M48.061 Spinal stenosis, lumbar region without neurogenic claudication (principal); R20.2 Paresthesia of skin; R53.1 Weakness
CPT/HCPCS: 72148

== ENCOUNTER → 2022-02-28 12:58 | Outpatient (BNVA) | payer MEDICARE, OTHER, SELFPAY | PROVIDERS: PCP Internal Medicine; Referring Provider Internal Medicine; Visit Provider Psychiatry & Neurology Neurology | DX: M48.061 Spinal stenosis, lumbar region without neurogenic claudication (principal); G95.89 Other specified diseases of spinal cord; F43.21 Adjustment disorder with depressed mood | CPT/HCPCS: 99214 ==

== ENCOUNTER → 2022-04-15 12:48 | Outpatient (BNVA) | payer MEDICARE, OTHER, SELFPAY | PROVIDERS: PCP Internal Medicine; Referring Provider Internal Medicine; Visit Provider Urology | DX: C67.9 Malignant neoplasm of bladder, unspecified (principal) | CPT/HCPCS: 52000 ==

== ENCOUNTER 2022-04-18 11:16 | Emergency (ER) | payer MEDICARE, OTHER, SELFPAY ==
[2022-04-18] VITALS (55 sets, daily range): BP systolic 84–174; BP diastolic 47–141; PULSE 50–104; RESP 13–27; TEMP 36.7–36.9; O2SAT 80–100
--- NOTE | 2022-04-18 13:15 | DI.RAD_ITS ---
Exam(s) XR PORTABLE CHEST AP EXAM: XR PORTABLE CHEST AP CLINICAL HISTORY: SOB. TECHNIQUE: 2D digital imaging was performed. COMPARISON: CR XR PORTABLE CHEST AP from 10/27/2021 FINDINGS: Single AP portable view. Heart size is upper normal. The mediastinum is not widened. Right lung remains clear but there is some mild infiltrate in the left lung, mid level. No obvious p leural effusions. No pulmonary edema. No pneumothorax. Left shoulder prosthesis again noted. Right shoulder surgery again noted. IMPRESSION: Mild left lung infiltrate now evident. No pleural effusions. DATA REPOSITORY: RADIATION DOSE DELIVERED: All CT scans at this facility use at least one of these dose optimization techniques: automated exposure control; mA and/or kV adjustment per patient size (includes targeted e xams where dose is matched to clinical indication); or iterative reconstruction.
--- NOTE | 2022-04-18 13:15 | RT.EKG_ITS ---
APPROVED REPORT Exam: Resting ECG Reason for Exam: SOB Patient Location: E HR:55 bpm ECG Measurements Heart Rate 55 AXIS NV 146 P 73 QRSd 85 QRS 52 QT 450 T 30 QTc 431 Conclusion Sinus bradycardia...rate< 60 sinus bradycardia at 55, normal axis, no acute ischemic changes, nondiagnostic EKG
--- NOTE | 2022-04-18 14:01 | W.ED.GENAD ---
Discharge Plan Disposition Patient Disposition: HOME Condition: Stable Discharge Details Clinical Impression: Acute UTI, Pneumonia Primary Care Provider: Mary Dorsey ED Provider: Tenzin Mcgregor Home Meds and New Rx's Prescriptions: New cefpodoxime 200 mg tablet 200 mg PO BID 5 Days Qty: 10 0RF Rx Instructions: must administer with a meal/food azithromycin 250 mg tablet 250 mg PO DAILY 4 Days Qty: 4 0RF No Action potassium chloride 10 mEq capsule, extended release 10 meq PO DAILY Qty: 90 3RF Hold Instructions: Home Medication placed on hold at Doctor's office lecithin 400 mg capsule PO TID amlodipine 2.5 mg tablet 2.5 mg PO DAILY Qty: 14 0RF pantoprazole 20 mg tablet,delayed release (DR/EC) 20 mg PO BID Qty: 180 3RF multivitamin [Daily Multi-Vitamin] Tablet 1 tab PO HS cetirizine [Zyrtec] 10 mg tablet 10 mg PO BID Qty: 180 3RF magnesium oxide 400 mg magnesium tablet 400 mg PO DAILY Qty: 90 3RF spironolactone 25 mg tablet 25 mg PO DAILY Qty: 90 3RF metoclopramide HCl 5 mg tablet 5 mg PO QACHS Qty: 360 3RF pregabalin 225 mg capsule 225 mg PO BID Qty: 180 3RF ondansetron 4 mg tablet,disintegrating 4 mg PO DAILY PRN (Reason: nausea and vomiting) Qty: 14 3RF duloxetine 20 mg capsule,delayed release(DR/EC) 20 mg PO DAILY Qty: 90 0RF pravastatin 40 mg tablet 40 mg PO DAILY Qty: 90 3RF calcium carbonate [Tums] 200 mg calcium (500 mg) Tablet,Chewable 500 mg PO DAILY cholecalciferol (vitamin D3) [Vitamin D3] 25 mcg (1,000 unit) Capsule 1,000 unit PO DAILY aspirin [Aspir-Low] 81 mg Tablet,Delayed Release (Dr/Ec) 81 mg PO DAILY Discharge Instructions Instructions: Urinary Tract Infection in Women (ED), Pneumonia (ED) Additional Instructions: Please follow-up with your primary care physician. Please return the emergency room if you develop any worsening symptoms. Medical Decision Making <Sujey Murphy MD - Last Filed: 04/18/22 16:26> Belén Velasquez is a 72-year-old woman with a history of anemia, GERD, spinal stenosis with radiculopathy, hypertension, osteoarthritis, delayed gastric emptying presenting to the emergency department with nausea and fatigue. Patient reports that 3 days ago she woke up feeling tired and nauseous and symptoms have persisted since then. Patient reports that she occasionally takes Zofran for nausea, but did not have any at home. She reports that she has not vomited, but has eaten and drank very little over the past 3 days due to nausea. She reports generalized body ache and chronic pain in her left shoulder and in her knees, chronic shoulder and knee pain seems worse since onset of symptoms. Denies any other pain. She reports very mild diarrhea, no black or bloody stools. She reports that she occasionally has had spells since onset of symptoms where she feels worse like she needs to lie down, and also has shortness of breath. Patient states that she has had similar symptoms in the past when she has been very hot as it has been over the past week or so. Patient reports that she did get air conditioning 3 days ago, but states that symptoms have not improved. She denies fever, cough, numbness, focal weakness, constipation, rash. On exam patient is well and nontoxic-appearing. Benign cardiopulmonary exam, benign abdominal exam. Concern for dehydration, metabolic/lyte derangement, UTI, pneumonia, other, doubt PE, ACS, acute emergent intra-abdominal process. Plan for IV placement, EKG, IV fluid hydration, telemetry, screening labs, UA, chest x-ray. Will monitor and reassess. Labs resulted, WBC 14.04, hemoglobin 11.5, D-dimer 2739, anion gap 8.8, creatinine 0.9, troponin negative, UA consistent with UTI. Chest x-ray shows mild infiltrate. Patient signed out to Dr. Mcgregor at time of shift change with CT chest, repeat troponin, p.o. challenge pending. Medical Records Medical records reviewed: Yes I reviewed the patient's medical records. Imaging Data Radiologic Study: Attestation: I personally reviewed and interpreted this imaging study as follows: Radiologist's impression: EXAM:? XR PORTABLE CHEST AP CLINICAL HISTORY: ? SOB. ? TECHNIQUE:? 2D digital imaging was performed. COMPARISON:? CR XR PORTABLE CHEST AP from 10/27/2021 FINDINGS: Single AP portable view. Heart size is upper normal.? The mediastinum is not widened. Right lung remains clear but there is some mild infiltrate in the left lung, mid level.? No obvious pleural effusions.? No pulmonary edema.? No pneumothorax. Left shoulder prosthesis again noted.? Right shoulder surgery again noted. IMPRESSION: Mild left lung infiltrate now evident.? No pleural effusions. Lab Data Lab results reviewed: Yes I reviewed the patient's lab results. Labs: 04/18/22 13:42 Urine - Reflex from Ua Urine Culture - Pending Laboratory Tests Range/Units 04/18/22 04/18/22 04/18/22 13:42 14:15 14:21 WBC (4.4-10.8) 10^3/uL RBC (3.93-5.22) 10^6/uL Hgb (11.2-15.7) g/dL Hct (36.0-46.0) % MCV (80-95) fL MCH (27.0-33.0) pg MCHC (32.0-36.0) % RDW (11.7-14.6) % Plt Count (130-400) 10^3/uL MPV (8.0-11.0) fL Immature Gran % Neutrophils % Lymphocytes % Monocytes % Eosinophils % Basophils % Nucleated RBC % (0.0-0.3) % Absolute Neutrophils (1.2-6.7) 10^3/uL Absolute Lymphocytes (1.2-3.4) 10^3/uL Absolute Monocytes (0.1-0.8) 10^3/uL Absolute Eosinophils (0.0-0.7) 10^3/uL Absolute Basophils (0.0-0.2) 10^3/uL D-Dimer (<500) ng/mlFEU Sodium (136-145) mmol/L 137 Potassium (3.5-5.1) mmol/L 3.7 Chloride (98-107) mmol/L 102 Carbon Dioxide (21.0-32.0) mmol/L 26.2 Anion Gap (3-11) mmol/L 8.8 BUN (7-18) mg/dL 22 H Creatinine (0.55-1.02) mg/dL 0.9 Estimated GFR/1.73 m2 (mL/min/1.73m2) >= 60.00 Glucose (74-106) mg/dL 97 Calcium (8.5-10.1) mg/dL 9.3 Total Bilirubin (0.2-1.0) mg/dL 0.8 AST (15-37) U/L 24 ALT (14-59) U/L 21 Alkaline Phosphatase (46-116) U/L 80 Troponin I (<or=60) ng/L < 50 Total Protein (6.4-8.2) g/dL 7.5 Albumin (3.4-5.0) g/dL 3.6 Urine Color (Yellow) Yellow Urine Clarity (Clear) Turbid Urine pH (5-8) 6.0 Ur Specific [place] (1.005-1.025) >= 1.030 H Urine Protein (Negative) mg/dL 100 H Urine Ketones (Negative) mg/dL 40 H Urine Blood (Negative) Moderate H Urine Nitrite (Negative) Negative Urine Bilirubin (Negative) Moderate H Urine Urobilinogen (Up TO 0.2) EU/dL 1.0 H Ur Leukocyte Esterase (Negative) Large H Urine RBC (0-2) HPF Urine WBC (0-5) HPF >50 H Ur Epithelial Cells (Negative) HPF Urine Crystals (Negative) HPF Urine Bacteria (Negative) HPF Many Urine Mucus (Negative) Ur Culture Indicated? Yes Urine Glucose (Negative) mg/dL Negative COVID-19 Source Nasopharynx SARS-CoV-2 (PCR) (Negative) Negative Influenza Type A (PCR) (Negative) Negative Influenza Type B (PCR) (Negative) Negative RSV (PCR) (Negative) Negative Range/Units 04/18/22 04/18/22 14:21 14:21 WBC (4.4-10.8) 10^3/uL 14.04 H RBC (3.93-5.22) 10^6/uL 3.85 L Hgb (11.2-15.7) g/dL 11.5 Hct (36.0-46.0) % 34.7 L MCV (80-95) fL 90 MCH (27.0-33.0) pg 29.9 MCHC (32.0-36.0) % 33.1 RDW (11.7-14.6) % 12.2 Plt Count (130-400) 10^3/uL 163 MPV (8.0-11.0) fL 11.7 H Immature Gran % 0.4 Neutrophils % 86.9 Lymphocytes % 6.5 Monocytes % 5.6 Eosinophils % 0.5 Basophils % 0.1 Nucleated RBC % (0.0-0.3) % 0.0 Absolute Neutrophils (1.2-6.7) 10^3/uL 12.20 H Absolute Lymphocytes (1.2-3.4) 10^3/uL 0.91 L Absolute Monocytes (0.1-0.8) 10^3/uL 0.79 Absolute Eosinophils (0.0-0.7) 10^3/uL 0.07 Absolute Basophils (0.0-0.2) 10^3/uL 0.01 D-Dimer (<500) ng/mlFEU 2739 H Sodium (136-145) mmol/L Potassium (3.5-5.1) mmol/L Chloride (98-107) mmol/L Carbon Dioxide (21.0-32.0) mmol/L Anion Gap (3-11) mmol/L BUN (7-18) mg/dL Creatinine (0.55-1.02) mg/dL Estimated GFR/1.73 m2 (mL/min/1.73m2) Glucose (74-106) mg/dL Calcium (8.5-10.1) mg/dL Total Bilirubin (0.2-1.0) mg/dL AST (15-37) U/L ALT (14-59) U/L Alkaline Phosphatase (46-116) U/L Troponin I (<or=60) ng/L Total Protein (6.4-8.2) g/dL Albumin (3.4-5.0) g/dL Urine Color (Yellow) Urine Clarity (Clear) Urine pH (5-8) Ur Specific C[place]shaw (1.005-1.025) Urine Protein (Negative) mg/dL Urine Ketones (Negative) mg/dL Urine Blood (Negative) Urine Nitrite (Negative) Urine Bilirubin (Negative) Urine Urobilinogen (Up TO 0.2) EU/dL Ur Leukocyte Esterase (Negative) Urine RBC (0-2) HPF Urine WBC (0-5) HPF Ur Epithelial Cells (Negative) HPF Urine Crystals (Negative) HPF Urine Bacteria (Negative) HPF Urine Mucus (Negative) Ur Culture Indicated? Urine Glucose (Negative) mg/dL COVID-19 Source SARS-CoV-2 (PCR) (Negative) Influenza Type A (PCR) (Negative) Influenza Type B (PCR) (Negative) RSV (PCR) (Negative) ECG Data Attestation: I personally reviewed and interpreted this ECG (s) as follows: Interpretation: EKG shows sinus bradycardia at 55, normal axis, no acute ischemic changes, nondiagnostic EKG <Tenzin Mcgregor MD - Last Filed: 04/18/22 18:28> Belén Velasquez is a 72-year-old woman with a history of anemia, GERD, spinal stenosis with radiculopathy, hypertension, osteoarthritis, delayed gastric emptying presenting to the emergency department with nausea and fatigue. Patient reports that 3 days ago she woke up feeling tired and nauseous and symptoms have persisted since then. Patient reports that she occasionally takes Zofran for nausea, but did not have any at home. She reports that she has not vomited, but has eaten and drank very little over the past 3 days due to nausea. She reports generalized body ache and chronic pain in her left shoulder and in her knees, chronic shoulder and knee pain seems worse since onset of symptoms. Denies any other pain. She reports very mild diarrhea, no black or bloody stools. She reports that she occasionally has had spells since onset of symptoms where she feels worse like she needs to lie down, and also has shortness of breath. Patient states that she has had similar symptoms in the past when she has been very hot as it has been over the past week or so. Patient reports that she did get air conditioning 3 days ago, but states that symptoms have not improved. She denies fever, cough, numbness, focal weakness, constipation, rash. On exam patient is well and nontoxic-appearing. Benign cardiopulmonary exam, benign abdominal exam. Concern for dehydration, metabolic/lyte derangement, UTI, pneumonia, other, doubt PE, ACS, acute emergent intra-abdominal process. Plan for IV placement, EKG, IV fluid hydration, telemetry, screening labs, UA, chest x-ray. Will monitor and reassess. Labs resulted, WBC 14.04, hemoglobin 11.5, D-dimer 2739, anion gap 8.8, creatinine 0.9, troponin negative, UA consistent with UTI. Chest x-ray shows mild infiltrate. Patient signed out to Dr. Mcgregor at time of shift change with CT chest, repeat troponin, p.o. challenge pending. 18: 24 patient was comfortably no acute distress. Evidence of UTI and developing left lower lobe pneumonia. Will cover with cefpodoxime and azithromycin. Home care instructions and return precautions given. HPI <Sujey Murphy MD - Last Filed: 04/18/22 16:26> General Date/Time Provider Initiated Documentation: 04/18/22 12:11. Limitations to Documentation: no limitations. Information obtained by: patient, RN notes reviewed and old records reviewed. HPI Narrative: Belén Velasquez is a 72-year-old woman with a history of anemia, GERD, spinal stenosis with radiculopathy, hypertension, osteoarthritis, delayed gastric emptying presenting to the emergency department with nausea and fatigue. Patient reports that 3 days ago she woke up feeling tired and nauseous and symptoms have persisted since then. Patient reports that she occasionally takes Zofran for nausea, but did not have any at home. She reports that she has not vomited, but has eaten and drank very little over the past 3 days due to nausea. She reports generalized body ache and chronic pain in her left shoulder and in her knees, chronic shoulder and knee pain seems worse since onset of symptoms. Denies any other pain. She reports very mild diarrhea, no black or bloody stools. She reports that she occasionally has had spells since onset of symptoms where she feels worse like she needs to lie down, and also has shortness of breath. Patient states that she has had similar symptoms in the past when she has been very hot as it has been over the past week or so. Patient reports that she did get air conditioning 3 days ago, but states that symptoms have not improved. She denies fever, cough, numbness, focal weakness, constipation, rash. Related Data Home Medications Medication Instructions Recorded Confirmed aspirin 81 mg tablet,delayed 81 mg PO DAILY 09/06/18 04/18/22 release (Aspir-Low) multivitamin (Daily Multi-Vitamin 1 tab PO HS 06/12/19 04/18/22 tablet) calcium carbonate 200 mg calcium 500 mg PO DAILY 04/20/20 04/18/22 (500 mg) chewable tablet (Tums) cholecalciferol (vitamin D3) 25 1,000 unit PO DAILY 04/20/20 04/18/22 mcg (1,000 unit) capsule (Vitamin D3) potassium chloride 10 mEq 10 meq PO DAILY #90 caps 01/05/21 04/18/22 capsule,extended release cetirizine 10 mg tablet (Zyrtec) 10 mg PO BID #180 tabs 05/06/21 04/18/22 magnesium oxide 400 mg PO DAILY #90 tabs 05/06/21 04/18/22 spironolactone 25 mg tablet 25 mg PO DAILY magnesium wasting 05/26/21 04/18/22 #90 tabs pantoprazole 20 mg tablet,delayed 20 mg PO BID reflux #180 tabs 06/15/21 04/18/22 release metoclopramide HCl 5 mg tablet 5 mg PO QACHS #360 tabs 08/11/21 04/18/22 amlodipine 2.5 mg tablet 2.5 mg PO DAILY #14 tabs 10/13/21 04/18/22 lecithin 400 mg capsule mg PO TID 11/16/21 04/15/22 pregabalin 225 mg capsule 225 mg PO BID #180 caps 01/18/22 04/18/22 duloxetine 20 mg capsule,delayed 20 mg PO DAILY #90 caps 03/16/22 04/18/22 release ondansetron 4 mg disintegrating 4 mg PO DAILY PRN nausea and 03/16/22 04/18/22 tablet vomiting #14 tabs pravastatin 40 mg tablet 40 mg PO DAILY #90 tabs 04/13/22 04/18/22 azithromycin 250 mg tablet 250 mg PO DAILY 4 days #4 tabs 04/18/22 cefpodoxime 200 mg tablet 200 mg PO BID 5 days #10 tabs 04/18/22 Previous Rx's Medication Instructions Recorded potassium chloride 10 mEq 10 meq PO DAILY #90 caps 01/05/21 capsule,extended release cetirizine 10 mg tablet (Zyrtec) 10 mg PO BID #180 tabs 05/06/21 magnesium oxide 400 mg PO DAILY #90 tabs 05/06/21 spironolactone 25 mg tablet 25 mg PO DAILY magnesium wasting 05/26/21 #90 tabs pantoprazole 20 mg tablet,delayed 20 mg PO BID reflux #180 tabs 06/15/21 release metoclopramide HCl 5 mg tablet 5 mg PO QACHS #360 tabs 08/11/21 amlodipine 2.5 mg tablet 2.5 mg PO DAILY #14 tabs 10/13/21 pregabalin 225 mg capsule 225 mg PO BID #180 caps 01/18/22 duloxetine 20 mg capsule,delayed 20 mg PO DAILY #90 caps 03/16/22 release ondansetron 4 mg disintegrating 4 mg PO DAILY PRN nausea and 03/16/22 tablet vomiting #14 tabs pravastatin 40 mg tablet 40 mg PO DAILY #90 tabs 04/13/22 azithromycin 250 mg tablet 250 mg PO DAILY 4 days #4 tabs 04/18/22 cefpodoxime 200 mg tablet 200 mg PO BID 5 days #10 tabs 04/18/22 Allergies Allergy/AdvReac Type Severity Reaction Status Date / Time codeine AdvReac Intermediate Nausea Verified 04/18/22 11:26 nitrofurantoin AdvReac Intermediate bloating, Verified 04/18/22 13:32 weakness hydrochlorothiazide AdvReac Mild hypomagnese Verified 04/18/22 11:26 pop duloxetine AdvReac nausea,dizziness,night Verified 04/18/22 13:32 sweats,leg spasms. narcotics AdvReac Intermediate Nausea, Uncoded 04/18/22 11:26 vomiting General Stated Complaint: [facility]Medical ROSENDO: 3 Review of Systems <Sujey Murphy MD - Last Filed: 04/18/22 16:26> Narrative: Constitutional: denies fevers Eyes: denies eye pain ENT: denies ear pain, dental pain, sore throat Cardiovascular: denies chest pain, edema Respiratory: denies cough, reports intermittent shortness of breath GI: denies abdominal pain, vomiting, diarrhea, reports nausea : denies flank pain MSK: denies back pain, neck pain, reports generalized myalgias, chronic left shoulder and bilateral knee pain Skin: denies rash Neuro: denies headaches, numbness, weakness PFS <Sujey Murphy MD - Last Filed: 04/18/22 16:26> All Active Problems (Updated 04/18/22 @ 18:25 by Tenzin Mcgregor MD) Acute UTI (Acute) Pneumonia (Acute) Sacroiliac joint dysfunction of right side (Acute) Acute UTI (Acute) Weakness (Acute) Anemia (Chronic) Smoker (Chronic) [place] cardiac risk >20% in next 10 years (Chronic) 2020: 32% Arthritis of left glenohumeral joint (Chronic ~07/01/14) Unintentional weight loss (Acute) GERD (gastroesophageal reflux disease) (Chronic) Spinal stenosis of lumbar region with radiculopathy (Acute) Leg edema (Acute) Spasticity (Acute) Coordination impairment (Acute 07/05/16) Sessile colonic polyp (Acute 03/14/18) Medical marijuana use (Chronic) Paresthesias (Chronic) 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 Dr Velazco, [facility] [place] Neurology Magnesium-losing nephropathy (Chronic) very mild; tx spironolactone Delayed gastric emptying (Chronic) mild Urothelial carcinoma of bladder (Chronic) Cervical myelopathy (Chronic) Spinal stenosis, other region (Acute 12/14/11) 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; cervical spondylosis; operated 08/03/16 Spinal stenosis, lumbar region without neurogenic claudication (Acute 12/14/11) Peripheral neuropathy (Acute 07/01/14) Osteopenia (Acute 12/14/11) Osteoporosis wrist, osteopenia hip, normal bone density of spine 2016 osteopenia 2011 Osteoarthritis of spine with radiculopathy, cervical region (Acute 09/05/11) Essential hypertension (Acute 02/26/13) Depression (Chronic 07/01/14) Medical History Adhesive capsulitis of left shoulder Injected 12/11/2018 Hx of bacterial pneumonia Hyperlipidemia Neuropathy Spinal stenosis Surgical History Anterior Fusion Cervical Spine C3-C5 (07/31/16) Jul 2016, [facility] [place] Dr. Martinez Arthroplasty of knee Per patient she has not had a TOTAL KNEE Breast, Lumpectomy Cervical spondylosis 11/03/20 C5-[address] Everett Cardoza Day 11/04/20 D/C'd home Colonoscopy - MAC (03/12/18) Colon,transverse,polyp,biopsy - fragment of sessile serrated adenoma. (Dr Neely) H/O cystoscopy (09/06/18) w/transurethral resection of bladder tumors-Dr Wiggins H/O laminectomy (~06/2021) APD-L3-L4 laminectomy, medial fa for decompression of stenosis, lateral disectomy [id number] Hemiarthroplasty (09/07/15) L shoulder Dr Luz History of hemiarthroplasty of left shoulder 09/07/2015 Repair of umbilical hernia Rotator Cuff Repair Status post shoulder hemiarthroplasty Tenotomy and debridement tendon L shoulder (10/25/17) Family History Father Essential hypertension Glaucoma Alzheimer's dementia Social History Smoking/Tobacco Use Status: Former Tobacco Use Smoking risk assessment performed?: Yes Alcohol Intake: former Drug use: Daily Substance use type: marijuana Details: marijuana: uses qd. Marijuana: t-3, couple hits Household members: none Housing: house Number of Children: 0 Pets and animals: Yes Pets and animals: cat(s) and dog(s) Current gender identity: female What type of physical activity do you participate in: none and other Details: PT 2 xweek Frequency: 1-2 times per week Seatbelt use: always Drive intox or ride w/intox emergency medical technician/driver: No Working smoke detector in home: Yes Fire extinguisher in home: Yes Carbon monox detector in home: Yes Do you feel safe at home: Yes Do you feel safe in your relationship?: Yes Exam <Sujey Murphy MD - Last Filed: 04/18/22 16:26> Narrative Exam Narrative: Constitutional: well and [id number], pleasant, conversing normally HENT: head atraumatic/normocephalic/normal inspection, mucous membranes moist Eyes: conjunctiva normal, sclera normal, pupils 3mm b/l Neck: no stridor, normal ROM, trachea midline Chest: normal inspection Resp: normal work of breathing, LCTAB Cardio: normal rate, normal rhythm, no murmur appreciated GI: abdomen soft, non-tender, non-distended Back: normal inspection, no rash Skin: warm, dry, normal color, no rash Neuro: alert, not altered, grossly non-focal, normal tone Ext: no edema Psych: normal mood, normal affect, normal behavior Course <Sujey Murphy MD - Last Filed: 04/18/22 16:26> Vital Signs Vital signs: Vital Signs Temperature 36.7 C 04/18/22 11:20 Pulse 74 04/18/22 11:20 Respiratory Rate 17 04/18/22 11:20 Blood Pressure 131/74 04/18/22 11:20 Pulse Oximetry 97 04/18/22 11:20 Temperature 36.9 C 04/18/22 12:49 Temperature Source Temporal Artery Scan 04/18/22 12:49 Pulse 76 04/18/22 12:49 Respiratory Rate 17 04/18/22 11:20 Respiratory Effort Non-Labored 04/18/22 12:34 Respiratory Depth Normal 04/18/22 12:34 Respiratory Pattern Normal 04/18/22 12:34 Blood Pressure 120/70 04/18/22 12:49 Blood Pressure Position Sitting 04/18/22 11:20 Pulse Oximetry 97 04/18/22 12:49 Oxygen Delivery Method Room Air 04/18/22 12:49 Oxygen Flow Rate 0 04/18/22 12:49 Pain Level 8 04/18/22 11:20 Sign Out <Sujey Murphy MD - Last Filed: 04/18/22 16:26> Sign Out Data: Sign Out Comment: Patient signed out to Dr. Mcgregor at time of shift change with CT chest, repeat troponin, p.o. challenge pending Last updated by Sujey Murphy MD at 04/18/22 16:20
[2022-04-18] MEDS: Normal Saline 1,000 ML 1000 ML IV (14:22)
[2022-04-18 14:39] LABS: Abs Immature Grans 0.05 10^3/uL (0.0-0.06); Absolute Eosinophil Count 0.07 10^3/uL (0.0-0.7); Absolute Lymphocyte Count 0.91 10^3/uL (1.2-3.4); Basophils % 0.1; Eosinophils % 0.5; HCT 34.7 % (36.0-46.0); HGB 11.5 g/dL (11.2-15.7); Immature Grans % 0.4; Lymphocytes % 6.5; MCH 29.9 pg (27.0-33.0); MCHC 33.1 % (32.0-36.0); MCV 90 fL (80-95); MPV 11.7 fL (8.0-11.0); Monocytes % 5.6; Neutrophils % 86.9; Platelet Count 163 10^3/uL (130-400); RBC 3.85 10^6/uL (3.93-5.22); RDW 12.2 % (11.7-14.6); RDW-SD 40.3 fL; WBC 14.04 10^3/uL (4.4-10.8)
[2022-04-18 14:40] LABS: Absolute Basophil Count 0.01 10^3/uL (0.0-0.2); Absolute Monocyte Count 0.79 10^3/uL (0.1-0.8)
[2022-04-18 14:57] LABS: ALT 21 U/L (14-59); AST 24 U/L (15-37); Albumin 3.6 g/dL (3.4-5.0); Alkaline Phosphatase 80 U/L (46-116); Anion Gap 8.8 mmol/L (3-11); BUN 22 mg/dL (7-18); Bilirubin, Total 0.8 mg/dL (0.2-1.0); CO2 26.2 mmol/L (21.0-32.0); CREATININE 0.9 mg/dL (0.55-1.02); Calcium 9.3 mg/dL (8.5-10.1); Chloride 102 mmol/L (98-107); Glucose 97 mg/dL (74-106); Potassium 3.7 mmol/L (3.5-5.1); Sodium 137 mmol/L (136-145); Total Protein 7.5 g/dL (6.4-8.2); Troponin I < 50 ng/L (<or=60)
[2022-04-18 15:12] LABS: D-Dimer 2739 ng/mlFEU (<500)
--- NOTE | 2022-04-18 15:15 | DI.CT_ITS ---
Exam(s) CT CHEST PE CTA EXAM: CT CHEST PE CTA CLINICAL HISTORY: SOB. TECHNIQUE: Imaging Protocol: CT angiography of the chest was performed using pulmonary embolus camila col. Multi planar reconstructions were performed. CONTRAST MATERIAL: Intravenous: Omnipaque 350 Contrast volume: 100 cc COMPARISON: CT CT CHEST PE ABD PELVIS W from 10/27/2021 FINDINGS: CHEST: PULMONARY ARTERIES: There are no intraluminal filling defects to suggest acute pulmonary emboli. LUNGS: In the right lung there is of 3 millimeter noncalcified nodule in the lateral segment of the r ight middle lobe, unchanged. No new additional right lung findings nor pleural effusion. In the left upper lobe there is a 9 x 8 millimeter nodular density seen associated with the lateral a spect of the major fissure, more prominent than previous. Also noted is subpleural nodular infiltrat e in the left lower lobe, more so than previous and also not associated with pleural effusion. MEDIASTINUM: There is no hilar nor mediastinal adenopathy. Visualized thyroid unremarkable. CARDIAC: Heart size is upper normal. There is no pericardial effusion.Caliber of the thoracic aorta is within normal limits. There is no significant shift of the interventricular septum. PARTIALLY VISUALIZED UPPERMOST ABDOMEN: Hypodense nodular densities are again noted in both adrenal g lands., unchanged and probably incidental adenomas. OSSEOUS: Left shoulder prosthesis. Right shoulder surgery and degenerative changes. No fractures. No osseous lesions.. IMPRESSION: 1. No evidence of acute pulmonary emboli. No evidence of pulmonary infarction.No pleural effusions. 2. 9 x 8 millimeter left upper lobe nodular density associated with the lateral aspect of the major f issure as well as subpleural nodular infiltrates in the left lower lobe, more so than previous. No p leural effusions requires follow-up scan in 3 months time RADIATION DOSE DELIVERED: 221.05mGy.cm Total DLP DATA REPOSITORY: All CT scans at this facility are submitted to the National Radiology Data Registry (NRDR) Dose Index Registry (DIR) with the [employer] ([employer]). RADIATION OPTIMIZATION: All CT scans at this facility use at least one of these dose optimization te chniques: automated exposure control; mA and/or kV adjustment per patient size (includes targeted exa ms where dose is matched to clinical indication); or iterative reconstruction.
[2022-04-18 15:19] LABS: COVID-19 PCR Negative (Negative); Influenza A PCR Negative (Negative); Influenza B PCR Negative (Negative); RSV PCR Negative (Negative)
[2022-04-18 15:21] LABS: Source Nasopharynx
[2022-04-18] MEDS: Ondansetron 4 MG/2 ML VIAL IVP (15:34)
[2022-04-18 15:56] LABS: Bilirubin Moderate (Negative); Blood Moderate (Negative); Clarity Turbid (Clear); Glucose Negative (Negative); Ketones 40 mg/dL (Negative); Leukocyte Esterase Large (Negative); Nitrite Negative (Negative); Specific Gravity >= 1.030 (1.005-1.025)
[2022-04-18 16:07] LABS: Bacteria Many HPF (Negative); C & S Indicated? Yes; WBC >50 HPF (0-5)
--- NOTE | 2022-04-18 16:29 | W.ED.GENAD ---
Discharge Plan Disposition Patient Disposition: HOME Condition: Stable Discharge Details Clinical Impression: Acute UTI, Pneumonia Primary Care Provider: Mary Dorsey ED Provider: Tenzin Mcgregor Home Meds and New Rx's Prescriptions: No Action potassium chloride 10 mEq capsule, extended release 10 meq PO DAILY Qty: 90 3RF Hold Instructions: Home Medication placed on hold at Doctor's office lecithin 400 mg capsule PO TID amlodipine 2.5 mg tablet 2.5 mg PO DAILY Qty: 14 0RF pantoprazole 20 mg tablet,delayed release (DR/EC) 20 mg PO BID Qty: 180 3RF multivitamin [Daily Multi-Vitamin] Tablet 1 tab PO HS cetirizine [Zyrtec] 10 mg tablet 10 mg PO BID Qty: 180 3RF magnesium oxide 400 mg magnesium tablet 400 mg PO DAILY Qty: 90 3RF spironolactone 25 mg tablet 25 mg PO DAILY Qty: 90 3RF metoclopramide HCl 5 mg tablet 5 mg PO QACHS Qty: 360 3RF pregabalin 225 mg capsule 225 mg PO BID Qty: 180 3RF ondansetron 4 mg tablet,disintegrating 4 mg PO DAILY PRN (Reason: nausea and vomiting) Qty: 14 3RF duloxetine 20 mg capsule,delayed release(DR/EC) 20 mg PO DAILY Qty: 90 0RF pravastatin 40 mg tablet 40 mg PO DAILY Qty: 90 3RF calcium carbonate [Tums] 200 mg calcium (500 mg) Tablet,Chewable 500 mg PO DAILY cholecalciferol (vitamin D3) [Vitamin D3] 25 mcg (1,000 unit) Capsule 1,000 unit PO DAILY aspirin [Aspir-Low] 81 mg Tablet,Delayed Release (Dr/Ec) 81 mg PO DAILY Discharge Instructions Instructions: Urinary Tract Infection in Women (ED), Pneumonia (ED) Additional Instructions: Please follow-up with your primary care physician. Please return the emergency room if you develop any worsening symptoms. Discharge Data Discharge Date/Time-TO BE ENTERED AT DEPARTURE: 04/18/22 19:30 Medical Decision Making Belén Velasquez is a 72 y/o woman with h/o HTN, HLD, GERD, spinal stenosis presenting to the emergency department with nausea and body aches. Pt reports that two days ago she woke feeling somewhat generally unwell. States that she has had generalized muscles aches and cough. Also reports some nausea/decreased appetite. Has had mild intermittent NO not currently occurring. Reports chronic unchanged shoulder and knee pain, denies any other pain. Reports mild SOB. Denies fever, numbness, weakness, vomiting. States that she has taken 2 covid tests at home, both negative. On exam Pt is well and non-toxic appearing. Mild exp wheeze, otherwise benign cardiopulmonary exam. Concern for COVID, PNA, dehydration, metabolic/lyte derangement. Doubt PE, ACS. Exam/hx at this time not c/w sepsis, meningitis, acute aortic pathology, acute emergenct intra-abdominal pathology. Plan for EKG, IV placement, screening labs, CXR, telemetry, duoneb. Will monitor and reassess. CXR shows infiltrate. Trop neg, d-dimer elevated, WBC 14.04, UA concerning for UTI. covid negative. Plan for CT chest. Pt signed out to Dr. Mcgregor at time of shift change with CT chest, repeat trop, PO challenge pending with plan for PO abx. Imaging Data Radiologic Study: Radiologist's impression: EXAM:? XR PORTABLE CHEST AP CLINICAL HISTORY: ? SOB. ? TECHNIQUE:? 2D digital imaging was performed. COMPARISON:? CR XR PORTABLE CHEST AP from 10/27/2021 FINDINGS: Single AP portable view. Heart size is upper normal.? The mediastinum is not widened. Right lung remains clear but there is some mild infiltrate in the left lung, mid level.? No obvious pleural effusions.? No pulmonary edema.? No pneumothorax. Left shoulder prosthesis again noted.? Right shoulder surgery again noted. IMPRESSION: Mild left lung infiltrate now evident.? No pleural effusions. Lab Data Lab results reviewed: Yes I reviewed the patient's lab results. HPI General Date/Time Provider Initiated Documentation: 04/18/22 12:11. Limitations to Documentation: no limitations. Information obtained by: patient, RN notes reviewed and old records reviewed. HPI Narrative: Belén Velasquez is a 72 y/o woman with h/o HTN, HLD, GERD, spinal stenosis presenting to the emergency department with nausea and body aches. Pt reports that two days ago she woke feeling somewhat generally unwell. States that she has had generalized muscles aches and cough. Also reports some nausea/decreased appetite. Has had mild intermittent NO not currently occurring. Reports chronic unchanged shoulder and knee pain, denies any other pain. Reports mild SOB. Denies fever, numbness, weakness, vomiting. States that she has taken 2 covid tests at home, both negative. Related Data Home Medications Medication Instructions Recorded Confirmed aspirin 81 mg tablet,delayed 81 mg PO DAILY 09/06/18 04/18/22 release (Aspir-Low) multivitamin (Daily Multi-Vitamin 1 tab PO HS 06/12/19 04/18/22 tablet) calcium carbonate 200 mg calcium 500 mg PO DAILY 04/20/20 04/18/22 (500 mg) chewable tablet (Tums) cholecalciferol (vitamin D3) 25 1,000 unit PO DAILY 04/20/20 04/18/22 mcg (1,000 unit) capsule (Vitamin D3) potassium chloride 10 mEq 10 meq PO DAILY #90 caps 01/05/21 04/18/22 capsule,extended release cetirizine 10 mg tablet (Zyrtec) 10 mg PO BID #180 tabs 05/06/21 04/18/22 magnesium oxide 400 mg PO DAILY #90 tabs 05/06/21 04/18/22 spironolactone 25 mg tablet 25 mg PO DAILY magnesium wasting 05/26/21 04/18/22 #90 tabs pantoprazole 20 mg tablet,delayed 20 mg PO BID reflux #180 tabs 06/15/21 04/18/22 release metoclopramide HCl 5 mg tablet 5 mg PO QACHS #360 tabs 08/11/21 04/18/22 amlodipine 2.5 mg tablet 2.5 mg PO DAILY #14 tabs 10/13/21 04/18/22 lecithin 400 mg capsule mg PO TID 11/16/21 04/15/22 pregabalin 225 mg capsule 225 mg PO BID #180 caps 01/18/22 04/18/22 duloxetine 20 mg capsule,delayed 20 mg PO DAILY #90 caps 03/16/22 04/18/22 release ondansetron 4 mg disintegrating 4 mg PO DAILY PRN nausea and 03/16/22 04/18/22 tablet vomiting #14 tabs pravastatin 40 mg tablet 40 mg PO DAILY #90 tabs 04/13/22 04/18/22 Previous Rx's Medication Instructions Recorded potassium chloride 10 mEq 10 meq PO DAILY #90 caps 01/05/21 capsule,extended release cetirizine 10 mg tablet (Zyrtec) 10 mg PO BID #180 tabs 05/06/21 magnesium oxide 400 mg PO DAILY #90 tabs 05/06/21 spironolactone 25 mg tablet 25 mg PO DAILY magnesium wasting 05/26/21 #90 tabs pantoprazole 20 mg tablet,delayed 20 mg PO BID reflux #180 tabs 06/15/21 release metoclopramide HCl 5 mg tablet 5 mg PO QACHS #360 tabs 08/11/21 amlodipine 2.5 mg tablet 2.5 mg PO DAILY #14 tabs 10/13/21 pregabalin 225 mg capsule 225 mg PO BID #180 caps 01/18/22 duloxetine 20 mg capsule,delayed 20 mg PO DAILY #90 caps 03/16/22 release ondansetron 4 mg disintegrating 4 mg PO DAILY PRN nausea and 03/16/22 tablet vomiting #14 tabs pravastatin 40 mg tablet 40 mg PO DAILY #90 tabs 04/13/22 Allergies Allergy/AdvReac Type Severity Reaction Status Date / Time codeine AdvReac Intermediate Nausea Verified 04/18/22 11:26 nitrofurantoin AdvReac Intermediate bloating, Verified 04/18/22 13:32 weakness hydrochlorothiazide AdvReac Mild hypomagnese Verified 04/18/22 11:26 pop duloxetine AdvReac nausea,dizziness,night Verified 04/18/22 13:32 sweats,leg spasms. narcotics AdvReac Intermediate Nausea, Uncoded 04/18/22 11:26 vomiting General Stated Complaint: GenMedical ROSENDO: 3 Review of Systems Narrative: Constitutional: denies fevers Eyes: denies eye pain ENT: denies ear pain, dental pain, sore throat Cardiovascular: denies chest pain, edema Respiratory: reports SOB, cough GI: denies abdominal pain, vomiting, diarrhea : denies flank pain MSK: denies back pain, neck pain, new arthralgias, reports generalized myalgias Skin: denies rash Neuro: denies numbness, weakness PFSH All Active Problems Acute UTI (Acute) Pneumonia (Acute) Sacroiliac joint dysfunction of right side (Acute) Acute UTI (Acute) Weakness (Acute) Anemia (Chronic) Smoker (Chronic) [place] cardiac risk >20% in next 10 years (Chronic) 2020: 32% Arthritis of left glenohumeral joint (Chronic ~07/01/14) Unintentional weight loss (Acute) GERD (gastroesophageal reflux disease) (Chronic) Spinal stenosis of lumbar region with radiculopathy (Acute) Leg edema (Acute) Spasticity (Acute) Coordination impairment (Acute 07/05/16) Sessile colonic polyp (Acute 03/14/18) Medical marijuana use (Chronic) Paresthesias (Chronic) 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 Dr Velazco, [facility] Neurology Magnesium-losing nephropathy (Chronic) very mild; tx spironolactone Delayed gastric emptying (Chronic) mild Urothelial carcinoma of bladder (Chronic) Cervical myelopathy (Chronic) Spinal stenosis, other region (Acute 12/14/11) 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; cervical spondylosis; operated 08/03/16 Spinal stenosis, lumbar region without neurogenic claudication (Acute 12/14/11) Peripheral neuropathy (Acute 07/01/14) Osteopenia (Acute 12/14/11) Osteoporosis wrist, osteopenia hip, normal bone density of spine 2017 osteopenia 2012 Osteoarthritis of spine with radiculopathy, cervical region (Acute 09/05/11) Essential hypertension (Acute 02/26/13) Depression (Chronic 07/01/14) Medical History Adhesive capsulitis of left shoulder Injected 12/11/2018 Hx of bacterial pneumonia Hyperlipidemia Neuropathy Spinal stenosis Surgical History Anterior Fusion Cervical Spine C3-C5 (07/31/16) Jul 2016, [facility] Dr. Martinez Arthroplasty of knee Per patient she has not had a TOTAL KNEE Breast, Lumpectomy Cervical spondylosis 11/03/20 C5-[address] Everett Cardoza Day 11/04/20 D/C'd home Colonoscopy - MAC (03/12/18) Colon,transverse,polyp,biopsy - fragment of sessile serrated adenoma. (Dr Neely) H/O cystoscopy (09/06/18) w/transurethral resection of bladder tumors-Dr Wiggins H/O laminectomy (~06/2021) APD-L3-L4 laminectomy, medial fa for decompression of stenosis, lateral disectomy [id number] Hemiarthroplasty (09/07/15) L shoulder Dr Luz History of hemiarthroplasty of left shoulder 09/07/2015 Repair of umbilical hernia Rotator Cuff Repair Status post shoulder hemiarthroplasty Tenotomy and debridement tendon L shoulder (10/25/17) Family History Father Essential hypertension Glaucoma Alzheimer's dementia Social History Smoking/Tobacco Use Status: Former Tobacco Use Smoking risk assessment performed?: Yes Alcohol Intake: former Drug use: Daily Substance use type: marijuana Details: marijuana: uses qd. 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 Working smoke detector in home: Yes Fire extinguisher in home: Yes Carbon monox detector in home: Yes Do you feel safe at home: Yes Do you feel safe in your relationship?: Yes Exam Narrative Exam Narrative: Constitutional: well and [id number], pleasant, conversing normally HENT: head atraumatic/normocephalic/normal inspection, mucous membranes moist Eyes: conjunctiva normal, sclera normal, pupils 3mm b/l Neck: no stridor, normal ROM, trachea midline Chest: normal inspection Resp: normal work of breathing, mild exp wheeze b/l, no rales, no rhonchi Cardio: normal rate, normal rhythm, no murmur appreciated GI: abdomen soft, non-tender, non-distended Back: normal inspection, no rash Skin: warm, dry, normal color, no rash Neuro: alert, not altered, grossly non-focal, normal tone Ext: no edema, no posterior calf TTP Psych: normal mood, normal affect, normal behavior Course Vital Signs Vital signs: Vital Signs Temperature 36.7 C 04/18/22 11:20 Pulse 74 04/18/22 11:20 Respiratory Rate 17 04/18/22 11:20 Blood Pressure 131/74 04/18/22 11:20 Pulse Oximetry 97 04/18/22 11:20 Temperature 36.9 C 04/18/22 12:49 Temperature Source Temporal Artery Scan 04/18/22 12:49 Pulse 104 H 04/18/22 16:01 Pulse 82 04/18/22 16:01 Respiratory Rate 24 04/18/22 16:01 Respiratory Effort Non-Labored 04/18/22 12:34 Respiratory Depth Normal 04/18/22 12:34 Respiratory Pattern Normal 04/18/22 12:34 Blood Pressure 156/124 H 04/18/22 16:01 Blood Pressure Mean 132 04/18/22 16:01 Blood Pressure Position Sitting 04/18/22 11:20 Pulse Oximetry 97 04/18/22 16:00 Oxygen Delivery Method Room Air 04/18/22 12:49 Oxygen Flow Rate 0 04/18/22 12:49 Pain Level 8 04/18/22 15:34 Lab/Test Results Lab/Test Results: 04/18/22 13:42 Urine - Reflex from Ua Urine Culture - Pending Laboratory Tests Range/Units 04/18/22 04/18/22 04/18/22 13:42 14:15 14:21 WBC (4.4-10.8) 10^3/uL RBC (3.93-5.22) 10^6/uL Hgb (11.2-15.7) g/dL Hct (36.0-46.0) % MCV (80-95) fL MCH (27.0-33.0) pg MCHC (32.0-36.0) % RDW (11.7-14.6) % Plt Count (130-400) 10^3/uL MPV (8.0-11.0) fL Immature Gran % Neutrophils % Lymphocytes % Monocytes % Eosinophils % Basophils % Nucleated RBC % (0.0-0.3) % Absolute Neutrophils (1.2-6.7) 10^3/uL Absolute Lymphocytes (1.2-3.4) 10^3/uL Absolute Monocytes (0.1-0.8) 10^3/uL Absolute Eosinophils (0.0-0.7) 10^3/uL Absolute Basophils (0.0-0.2) 10^3/uL D-Dimer (<500) ng/mlFEU Sodium (136-145) mmol/L 137 Potassium (3.5-5.1) mmol/L 3.7 Chloride (98-107) mmol/L 102 Carbon Dioxide (21.0-32.0) mmol/L 26.2 Anion Gap (3-11) mmol/L 8.8 BUN (7-18) mg/dL 22 H Creatinine (0.55-1.02) mg/dL 0.9 Estimated GFR/1.73 m2 (mL/min/1.73m2) >= 60.00 Glucose (74-106) mg/dL 97 Calcium (8.5-10.1) mg/dL 9.3 Total Bilirubin (0.2-1.0) mg/dL 0.8 AST (15-37) U/L 24 ALT (14-59) U/L 21 Alkaline Phosphatase (46-116) U/L 80 Troponin I (<or=60) ng/L < 50 Total Protein (6.4-8.2) g/dL 7.5 Albumin (3.4-5.0) g/dL 3.6 Urine Color (Yellow) Yellow Urine Clarity (Clear) Turbid Urine pH (5-8) 6.0 Ur Specific [place] (1.005-1.025) >= 1.030 H Urine Protein (Negative) mg/dL 100 H Urine Ketones (Negative) mg/dL 40 H Urine Blood (Negative) Moderate H Urine Nitrite (Negative) Negative Urine Bilirubin (Negative) Moderate H Urine Urobilinogen (Up TO 0.2) EU/dL 1.0 H Ur Leukocyte Esterase (Negative) Large H Urine RBC (0-2) HPF Urine WBC (0-5) HPF >50 H Ur Epithelial Cells (Negative) HPF Urine Crystals (Negative) HPF Urine Bacteria (Negative) HPF Many Urine Mucus (Negative) Ur Culture Indicated? Yes Urine Glucose (Negative) mg/dL Negative COVID-19 Source Nasopharynx SARS-CoV-2 (PCR) (Negative) Negative Influenza Type A (PCR) (Negative) Negative Influenza Type B (PCR) (Negative) Negative RSV (PCR) (Negative) Negative Range/Units 04/18/22 04/18/22 14:21 14:21 WBC (4.4-10.8) 10^3/uL 14.04 H RBC (3.93-5.22) 10^6/uL 3.85 L Hgb (11.2-15.7) g/dL 11.5 Hct (36.0-46.0) % 34.7 L MCV (80-95) fL 90 MCH (27.0-33.0) pg 29.9 MCHC (32.0-36.0) % 33.1 RDW (11.7-14.6) % 12.2 Plt Count (130-400) 10^3/uL 163 MPV (8.0-11.0) fL 11.7 H Immature Gran % 0.4 Neutrophils % 86.9 Lymphocytes % 6.5 Monocytes % 5.6 Eosinophils % 0.5 Basophils % 0.1 Nucleated RBC % (0.0-0.3) % 0.0 Absolute Neutrophils (1.2-6.7) 10^3/uL 12.20 H Absolute Lymphocytes (1.2-3.4) 10^3/uL 0.91 L Absolute Monocytes (0.1-0.8) 10^3/uL 0.79 Absolute Eosinophils (0.0-0.7) 10^3/uL 0.07 Absolute Basophils (0.0-0.2) 10^3/uL 0.01 D-Dimer (<500) ng/mlFEU 2739 H Sodium (136-145) mmol/L Potassium (3.5-5.1) mmol/L Chloride (98-107) mmol/L Carbon Dioxide (21.0-32.0) mmol/L Anion Gap (3-11) mmol/L BUN (7-18) mg/dL Creatinine (0.55-1.02) mg/dL Estimated GFR/1.73 m2 (mL/min/1.73m2) Glucose (74-106) mg/dL Calcium (8.5-10.1) mg/dL Total Bilirubin (0.2-1.0) mg/dL AST (15-37) U/L ALT (14-59) U/L Alkaline Phosphatase (46-116) U/L Troponin I (<or=60) ng/L Total Protein (6.4-8.2) g/dL Albumin (3.4-5.0) g/dL Urine Color (Yellow) Urine Clarity (Clear) Urine pH (5-8) Ur Specific [place] (1.005-1.025) Urine Protein (Negative) mg/dL Urine Ketones (Negative) mg/dL Urine Blood (Negative) Urine Nitrite (Negative) Urine Bilirubin (Negative) Urine Urobilinogen (Up TO 0.2) EU/dL Ur Leukocyte Esterase (Negative) Urine RBC (0-2) HPF Urine WBC (0-5) HPF Ur Epithelial Cells (Negative) HPF Urine Crystals (Negative) HPF Urine Bacteria (Negative) HPF Urine Mucus (Negative) Ur Culture Indicated? Urine Glucose (Negative) mg/dL COVID-19 Source SARS-CoV-2 (PCR) (Negative) Influenza Type A (PCR) (Negative) Influenza Type B (PCR) (Negative) RSV (PCR) (Negative) Sign Out Sign Out Data: Sign Out Comment: Patient signed out to Dr. Mcgregor at time of shift change with CT chest, repeat troponin, p.o. challenge pending Last updated by Sujey Murphy MD at 04/18/22 16:20
[2022-04-18] MEDS: Omnipaque 350 MG/ML 100 ML BTL IJ (16:30)
[2022-04-18 17:29] LABS: Troponin I < 50 ng/L (<or=60)
[2022-04-18] MEDS: Azithromycin 250 MG TAB 500 MG PO (18:45)
[2022-04-18] MEDS: Cefpodoxime 200 MG TAB PO (19:17)
== END 2022-04-18 19:30 | disposition home or self-care (01) ==
PROVIDERS: Student in an Organized Health Care Education/Training Program; Emergency Provider Emergency Medicine; PCP Internal Medicine
DX: J18.9 Pneumonia, unspecified organism (principal); N39.0 Urinary tract infection, site not specified; I10 Essential (primary) hypertension; R79.1 Abnormal coagulation profile; Z20.822 Contact with and (suspected) exposure to COVID-19; Z87.891 Personal history of nicotine dependence
CPT/HCPCS: 36415; 71275; 80053; 87077; 87637; 93005; 96361; 96374; 99284; 99285; 71045; 81003; 81015; 84484; 85025; 85379; 87086; 87186; 93010; J2405; J3490

== ENCOUNTER 2022-05-04 14:12 | Outpatient (REF) | payer MEDICARE, OTHER, SELFPAY | END 2022-05-04 14:13 | disposition home or self-care (01) | LOC: LBN 14:12 | PROVIDERS: PCP Internal Medicine; Visit Provider Internal Medicine | DX: R31.29 Other microscopic hematuria (principal) | CPT/HCPCS: 87086 ==

== ENCOUNTER 2022-05-25 09:04 | Outpatient (CLI) | payer MEDICARE, OTHER, SELFPAY ==
--- NOTE | 2022-05-25 06:00 | DI.RAD_ITS ---
Exam(s) XR PAIN CLINIC SACRIOILIAC 2V EXAM: XR PAIN CLINIC SACRIOILIAC 2V CLINICAL HISTORY: Dx: Sacroiliac Joint Dysfunction TECHNIQUE: 2D and realtime digital imaging was performed. Radiologist not present. CONTRAST MATERIAL: None. COMPARISON: No exams were available for comparison FINDINGS: Fluoroscopy was provided for pain management therapy. Please refer to procedure report or details. Right SI joint injection Cumulative dose: Ka,r=2.09 mGy IMPRESSION: RADIATION DOSE DELIVERED:
[2022-05-25 09:19] VITALS: BP 129/74; PULSE 84; RESP 20; TEMP 36.7; O2SAT 95
[2022-05-25 10:00] VITALS: BP 131/76; PULSE 82; RESP 13; O2SAT 97
--- NOTE | 2022-05-25 13:33 | PDOC.PAIN_ITS ---
Pain Clinic Procedure Note Procedure Note Procedure Note: INTRA-ARTICULAR SI JOINT INJECTION Belén Velasquez has been referred to the [facility] for intra- articular SI joint injection. COMMENTS: She was previously evaluated in the office. Her pre-procedure pain VAS was 8/10. Dx: Sacroiliac joint dysfunction. Patient was interviewed and the medical record reviewed. There were no medical, pharmacologic, radiographic or other structural contraindications to attempting fluoroscopically guided intra-articular SI joint injection. Risks and expected side effects as well as potential benefit of the procedure were reviewed and voiced concerns addressed. The printed consent form was signed and witnessed. Standard time-out procedure was performed. Patient was placed in the prone position on the fluoroscopy table and automated blood pressure cuff and pulse oximeter applied. The skin entry point for approaching the right SI joint was identified under the most advantageous fluoroscopic view and marked. Following thorough Chlorhexadine preparation of the skin and draping and 1% lidocaine infiltration of the skin entry point and subcutaneous tissues, a 22 gauge 3.5 spinal needle was placed under fluoroscopic guidance into the right SI joint was identified under the most advantageous fluoroscopic view and marked. Intra-articular placement was confirmed by a clear arthrogram resulting from the injection of 0.25ml Omnipaque 240, 1ml 1% lidocaine, and 80mg Depomedrol were injected intra-articularily with an initial reproduction of a significant component of the usual pain. Vital signs were stable throughout the procedure and were as recorded in the docflowsheet by the nursing staff. If given, dosages of intravenous drugs for anxiolysis and analgesia were documented in MAR. Follow up plans and appointments were discussed with the patient. Post procedure instruction was given as documented in nursing documentation and having met discharge criteria, and was discharged from the [facility] Center. COMMENTS: Post-procedure pain VAS was 1/10. Henry Montes DO, MPH [facility] Management [facility] CC: Mary Dorsey MD
== END 2022-05-25 09:05 | disposition home or self-care (01) ==
LOC: PC 09:04
PROVIDERS: PCP Internal Medicine; Visit Provider Preventive Medicine Occupational Medicine
DX: M53.3 Sacrococcygeal disorders, not elsewhere classified (principal); M54.50 Low back pain, unspecified
CPT/HCPCS: 27096; 72200

== ENCOUNTER 2022-05-27 15:30 | Outpatient (REF) | payer MEDICARE, OTHER, SELFPAY ==
[2022-05-27 19:16] LABS: Bilirubin Negative (Negative); Blood Moderate (Negative); Clarity Cloudy (Clear); Glucose Negative (Negative); Ketones Negative (Negative); Leukocyte Esterase Large (Negative); Nitrite Negative (Negative); Urobilinogen 0.2 EU/dL (Up TO 0.2)
[2022-05-27 19:22] LABS: WBC >50 HPF (0-5)
[2022-05-27 19:23] LABS: C & S Indicated? C&S Done As Ordered
== END 2022-05-27 15:31 | disposition home or self-care (01) ==
LOC: LBN 15:30
PROVIDERS: PCP Internal Medicine; Visit Provider Urology
DX: N39.0 Urinary tract infection, site not specified (principal)
CPT/HCPCS: 87077; 81003; 81015; 87086; 87186

== ENCOUNTER → 2022-05-31 12:45 | Outpatient (BNVA) | payer MEDICARE, OTHER, SELFPAY | PROVIDERS: PCP Internal Medicine; Referring Provider Internal Medicine; Visit Provider Psychiatry & Neurology Neurology | DX: G95.9 Disease of spinal cord, unspecified (principal); R20.2 Paresthesia of skin; R25.2 Cramp and spasm; M48.061 Spinal stenosis, lumbar region without neurogenic claudication; M25.522 Pain in left elbow; F43.21 Adjustment disorder with depressed mood; R53.1 Weakness | CPT/HCPCS: 99214 ==

== ENCOUNTER → 2022-07-11 14:20 | Outpatient (BNVA) | payer MEDICARE, OTHER, SELFPAY | PROVIDERS: PCP Internal Medicine; Referring Provider Internal Medicine; Visit Provider Psychiatry & Neurology Neurology | DX: G56.22 Lesion of ulnar nerve, left upper limb (principal); G95.9 Disease of spinal cord, unspecified; M48.061 Spinal stenosis, lumbar region without neurogenic claudication; F43.21 Adjustment disorder with depressed mood | CPT/HCPCS: 95908; 99213 ==

== ENCOUNTER 2022-07-18 16:43 | Emergency (ER) | payer MEDICARE, OTHER, SELFPAY ==
[2022-07-18 17:05] VITALS: BP 137/60; PULSE 68; RESP 18; TEMP 36.3; O2SAT 98
--- NOTE | 2022-07-18 17:25 | ED.GENADUL_ITS ---
Discharge Plan Disposition Patient Disposition: HOME Condition: Improving Discharge Details Clinical Impression: Acute cystitis Primary Care Provider: Mary Dorsey ED Provider: Ezekiel Han Home Meds and New Rx's Prescriptions: New cephalexin 500 mg capsule 500 mg PO TID 7 Days Qty: 21 0RF Continued lecithin 400 mg capsule PO TID amlodipine 2.5 mg tablet 2.5 mg PO DAILY Qty: 90 3RF spironolactone 25 mg tablet 25 mg PO DAILY Qty: 90 3RF magnesium oxide 400 mg magnesium tablet 400 mg PO DAILY Qty: 90 3RF duloxetine 60 mg capsule,delayed release(DR/EC) 60 mg PO DAILY Qty: 90 3RF multivitamin [Daily Multi-Vitamin] Tablet 1 tab PO HS cetirizine [Zyrtec] 10 mg tablet 10 mg PO BID Qty: 180 3RF metoclopramide HCl 5 mg tablet 5 mg PO QACHS Qty: 360 3RF pregabalin 225 mg capsule 225 mg PO BID Qty: 180 3RF ondansetron 4 mg tablet,disintegrating 4 mg PO DAILY PRN (Reason: nausea and vomiting) Qty: 14 3RF pravastatin 40 mg tablet 40 mg PO DAILY Qty: 90 3RF potassium chloride 10 mEq capsule, extended release See Rx Instructions .ROUTE .COMPLEX Qty: 90 0RF Hold Instructions: Home Medication placed on hold at Doctor's office Dose Instruction: TAKE 1 CAPSULE EVERY DAY Rx Instructions: TAKE 1 CAPSULE EVERY DAY pantoprazole 20 mg tablet,delayed release (DR/EC) See Rx Instructions .ROUTE .COMPLEX Qty: 180 0RF Dose Instruction: TAKE 1 TABLET TWICE DAILY FOR REFLUX Rx Instructions: TAKE 1 TABLET TWICE DAILY FOR REFLUX calcium carbonate [Tums] 200 mg calcium (500 mg) Tablet,Chewable 500 mg PO DAILY cholecalciferol (vitamin D3) [Vitamin D3] 25 mcg (1,000 unit) Capsule 1,000 unit PO DAILY aspirin [Aspir-Low] 81 mg Tablet,Delayed Release (Dr/Ec) 81 mg PO DAILY Discharge Instructions Instructions: Urinary Tract Infection in Women (ED) Additional Instructions: Please take antibiotics as prescribed, next dose tomorrow morning. Pyridium you were provided with the night will use your urinary discomfort and may turn your urine bright orange. Continue your routine medications. Return to ER for increasing pain, the development of a fever, or any other acute concerns. Home to rest this evening. Medical Decision Making 72-year-old female presents from home with 2 to 3 days of nausea, vomiting, loose watery stool. Poor p.o. intake for the past 24 hours now feels generally weak and lightheaded. She has not had syncope, no chest pain. There is not the blood present in the GI output. Patient arrives afebrile and well-appearing. She does appear to be dehydrated. His labs reveal white count 6, hematocrit 36, platelets 188. Chemistries note BUN of 25 magnesium of 1.6, otherwise reassuring. Urinalysis shows nitrites, leuk esterase and 20-50 white blood cells with rare epithelial cells. Consistent with acute cystitis. Patient improved with fluids and medications. Given 1 g of ceftriaxone in the emergency department and start her on a course of Keflex. We will trial Pyridium at home to ease her suprapubic discomfort. She will return for worsening or any other acute concern. HPI General Mode of arrival: ambulatory . Date/Time Provider Initiated Documentation: 07/18/22 17:08 . Limitations to Documentation: no limitations . Information obtained by: patient . History of Present Illness 72 year old F presents to the emergency department with the chief complaint of Nausea, vomiting, diarrhea x2 to 3 days, described as moderate, and is localized to the abdomen. Patient reports no radiation. Patient started experiencing this day(s) No relieving factors improve symptom(s), Eating worsens symptoms . Patient notes loss of appetite, nausea/vomiting and weakness; denies headaches. Patient did receive the following treatments prior to arrival, none Related Data Home Medications Medication Instructions Recorded Confirmed aspirin 81 mg tablet,delayed 81 mg PO DAILY 09/06/18 07/11/22 release (Aspir-Low) multivitamin (Daily Multi-Vitamin 1 tab PO HS 06/12/19 07/11/22 tablet) calcium carbonate 200 mg calcium 500 mg PO DAILY 04/20/20 07/11/22 (500 mg) chewable tablet (Tums) cholecalciferol (vitamin D3) 25 1,000 unit PO DAILY 04/20/20 07/11/22 mcg (1,000 unit) capsule (Vitamin D3) cetirizine 10 mg tablet (Zyrtec) 10 mg PO BID #180 tabs 05/06/21 07/11/22 metoclopramide HCl 5 mg tablet 5 mg PO QAS #360 tabs 08/11/21 07/11/22 lecithin 400 mg capsule mg PO TID 11/16/21 07/11/22 pregabalin 225 mg capsule 225 mg PO BID #180 caps 01/18/22 07/11/22 ondansetron 4 mg disintegrating 4 mg PO DAILY PRN nausea and 03/16/22 07/11/22 tablet vomiting #14 tabs pravastatin 40 mg tablet 40 mg PO DAILY #90 tabs 04/13/22 07/11/22 amlodipine 2.5 mg tablet 2.5 mg PO DAILY #90 tabs 05/04/22 07/11/22 magnesium oxide 400 mg PO DAILY #90 tabs 05/04/22 07/11/22 spironolactone 25 mg tablet 25 mg PO DAILY magnesium wasting 05/04/22 07/11/22 #90 tabs pantoprazole 20 mg tablet,delayed See Rx Instructions .Route 05/18/22 07/11/22 release .COMPLEX #180 tabs potassium chloride 10 mEq See Rx Instructions .Route 05/18/22 07/11/22 capsule,extended release .COMPLEX #90 caps duloxetine 60 mg capsule,delayed 60 mg PO DAILY #90 caps 07/11/22 07/11/22 release cephalexin 500 mg capsule 500 mg PO TID 7 days #21 caps 07/18/22 Previous Rx's Medication Instructions Recorded cetirizine 10 mg tablet (Zyrtec) 10 mg PO BID #180 tabs 05/06/21 metoclopramide HCl 5 mg tablet 5 mg PO QACHS #360 tabs 08/11/21 pregabalin 225 mg capsule 225 mg PO BID #180 caps 01/18/22 ondansetron 4 mg disintegrating 4 mg PO DAILY PRN nausea and 03/16/22 tablet vomiting #14 tabs pravastatin 40 mg tablet 40 mg PO DAILY #90 tabs 04/13/22 amlodipine 2.5 mg tablet 2.5 mg PO DAILY #90 tabs 05/04/22 magnesium oxide 400 mg PO DAILY #90 tabs 05/04/22 spironolactone 25 mg tablet 25 mg PO DAILY magnesium wasting 05/04/22 #90 tabs pantoprazole 20 mg tablet,delayed See Rx Instructions .Route 05/18/22 release .COMPLEX #180 tabs potassium chloride 10 mEq See Rx Instructions .Route 05/18/22 capsule,extended release .COMPLEX #90 caps duloxetine 60 mg capsule,delayed 60 mg PO DAILY #90 caps 07/11/22 release cephalexin 500 mg capsule 500 mg PO TID 7 days #21 caps 07/18/22 Allergies Allergy/AdvReac Type Severity Reaction Status Date / Time ciprofloxacin Allergy Unverified 07/18/22 17:07 codeine AdvReac Intermediate Nausea Verified 07/18/22 17:07 nitrofurantoin AdvReac Intermediate bloating, Verified 07/18/22 17:07 weakness hydrochlorothiazide AdvReac Mild hypomagnese Verified 07/18/22 17:07 pop narcotics AdvReac Intermediate Nausea, Uncoded 07/18/22 17:07 vomiting General Stated Complaint: Nausea/Vomit/Diar ROSENDO: 3 Review of Systems Narrative: 6 systems reviewed and otherwise negative no known food exposures. Denies abdominal pain. Feels weakness. No blood in the stool or emesis. 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; cervical spondylosis; operated 08/03/16 Cervical myelopathy (Chronic) Spinal stenosis, lumbar region without neurogenic claudication (Acute 12/14/11) Osteoarthritis of spine with radiculopathy, cervical region (Acute 09/05/11) Sacroiliac joint dysfunction of right side (Acute) Spinal stenosis of lumbar region with radiculopathy (Acute) 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 Dr Velazco, [facility] [place] Neurology Essential hypertension (Acute 02/26/13) [place] cardiac risk >20% in next 10 years (Chronic) 2020: 32% Urothelial carcinoma of bladder (Chronic) Magnesium-losing nephropathy (Chronic) very mild; tx spironolactone Delayed gastric emptying (Chronic) mild GERD (gastroesophageal reflux disease) (Chronic) Depression (Chronic 07/01/14) Medical marijuana use (Chronic) Arthritis of left glenohumeral joint (Chronic ~07/01/14) Leg edema (Acute) Osteopenia (Acute 12/14/11) Osteoporosis wrist, osteopenia hip, normal bone density of spine 2017 osteopenia 2011 Medical History Acute UTI Acute UTI Adhesive capsulitis of left shoulder Injected 12/11/2018 Anemia Hx of bacterial pneumonia Hyperlipidemia Neuropathy Pneumonia Sessile colonic polyp (03/14/18) Smoker Spinal stenosis Unintentional weight loss Weakness Surgical History Anterior Fusion Cervical Spine C3-C5 (07/31/16) Jul 2016, [facility] [place] Dr. Martinez Arthroplasty of knee Per patient she has not had a TOTAL KNEE Breast, Lumpectomy Cervical spondylosis 11/03/20 C5-[address] Everett Cardoza Day 11/04/20 D/C'd home Colonoscopy - MAC (03/12/18) Colon,transverse,polyp,biopsy - fragment of sessile serrated adenoma. (Dr Neely) H/O cystoscopy (09/06/18) w/transurethral resection of bladder tumors-Dr Wiggins H/O laminectomy (~06/2021) APD-L3-L4 laminectomy, medial fa for decompression of stenosis, lateral disectomy [id number] Hemiarthroplasty (09/07/15) L shoulder Dr Luz History of hemiarthroplasty of left shoulder 09/07/2015 Repair of umbilical hernia Rotator Cuff Repair Status post shoulder hemiarthroplasty Tenotomy and debridement tendon L shoulder (10/25/17) Family History Father Essential hypertension Glaucoma Alzheimer's dementia Social History Smoking/Tobacco Use Status: Former Tobacco Use Smoking risk assessment performed?: Yes Alcohol Intake: former Substance use type: marijuana Details: marijuana: uses qd. 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 Pleasant, well groomed, interactive. HEAD: Normocephalic, atraumatic ENT: Mucous membranes dry, oropharynx unremarkable, External ear exam unremarkable EYES: PERRL, EOMI NECK: Full ROM, no CARLITO, no menigismus CHEST/RESP: Nontender, clear to auscultation bilateral, cough noted CARDIOVASCULAR: RRR, no murmur, rub pipo. 2+ Rad pulse bilateral ABDOMEN: Soft, nontender, no mass. +Bowel sounds EXT: Full ROM, no edema, no rash, poor skin turgor Neuro: Grossly normal neurologic exam, conversant, interactive. Psych: Speech fluent, thoughts congruent, affect normal Course Vital Signs Vital signs: Vital Signs Temperature 36.3 C L 07/18/22 17:05 Pulse 68 07/18/22 17:05 Respiratory Rate 18 07/18/22 17:05 Blood Pressure 137/60 07/18/22 17:05 Pulse Oximetry 98 07/18/22 17:05 Temperature 36.3 C L 07/18/22 17:05 Temperature Source Tympanic 07/18/22 17:05 Pulse 68 07/18/22 17:05 Respiratory Rate 18 07/18/22 17:05 Respiratory Effort Non-Labored 07/18/22 17:07 Blood Pressure 137/60 07/18/22 17:05 Blood Pressure Position Sitting 07/18/22 17:05 Pulse Oximetry 98 07/18/22 17:05 Oxygen Delivery Method Room Air 07/18/22 17:05 Oxygen Flow Rate 0 07/18/22 17:05
[2022-07-18 17:42] LABS: Abs Immature Grans 0.02 10^3/uL (0.0-0.06); Absolute Basophil Count 0.03 10^3/uL (0.0-0.2); Absolute Eosinophil Count 0.07 10^3/uL (0.0-0.7); Absolute Lymphocyte Count 1.29 10^3/uL (1.2-3.4); Absolute Monocyte Count 0.54 10^3/uL (0.1-0.8); Absolute Neutrophil Count 4.51 10^3/uL (1.2-6.7); Basophils % 0.5; Eosinophils % 1.1; HCT 36.8 % (36.0-46.0); HGB 12.1 g/dL (11.2-15.7); Immature Grans % 0.3; MCH 29.4 pg (27.0-33.0); MCHC 32.9 % (32.0-36.0); MCV 89 fL (80-95); MPV 11.1 fL (8.0-11.0); Monocytes % 8.4; Neutrophils % 69.7; Platelet Count 188 10^3/uL (130-400); RBC 4.12 10^6/uL (3.93-5.22); RDW 14.3 % (11.7-14.6); RDW-SD 46.2 fL; WBC 6.46 10^3/uL (4.4-10.8)
[2022-07-18 18:00] LABS: ALT 26 U/L (14-59); AST 28 U/L (15-37); Albumin 4.2 g/dL (3.4-5.0); Alkaline Phosphatase 107 U/L (46-116); Anion Gap 9.9 mmol/L (3-11); BUN 25 mg/dL (7-18); Bilirubin, Total 0.6 mg/dL (0.2-1.0); CO2 26.1 mmol/L (21.0-32.0); Calcium 9.9 mg/dL (8.5-10.1); Chloride 103 mmol/L (98-107); Estimated GFR 59.86 (mL/min/1.73m2); Glucose 94 mg/dL (74-106); Magnesium 1.6 mg/dL (1.8-2.4); Potassium 3.9 mmol/L (3.5-5.1); Sodium 139 mmol/L (136-145); Total Protein 8.2 g/dL (6.4-8.2); Troponin I < 50 ng/L (<or=60)
[2022-07-18] MEDS: ACETAMINOPHEN 1,000 MG/100 ML BTL 400 MG IVPB (18:18)
[2022-07-18] MEDS: Normal Saline 1,000 ML 1000 ML IV (18:20)
[2022-07-18 18:29] LABS: Bilirubin Negative (Negative); Blood Small (Negative); Clarity Cloudy (Clear); Glucose Negative (Negative); Ketones 40 mg/dL (Negative); Leukocyte Esterase Large (Negative); Nitrite Positive (Negative); Urobilinogen 0.2 EU/dL (Up TO 0.2); pH 7.5 (5-8)
[2022-07-18] MEDS: Ondansetron 4 MG/2 ML VIAL IVP (18:29)
[2022-07-18] MEDS: MAGNESIUM SULFATE 1 GM/100 ML BAG IVPB (18:34)
[2022-07-18 18:36] LABS: Bacteria Many HPF (Negative); C & S Indicated? Yes; Casts Negative LPF (Negative); Crystals Negative HPF (Negative); Epithelial Cells Rare HPF (Negative); Mucus Negative (Negative); WBC 20-50 HPF (0-5)
[2022-07-18] MEDS: cefTRIAXone 1 GM/50 ML BAG IVPB (19:14)
[2022-07-18] MEDS: Normal Saline 500 ML IV (19:14)
[2022-07-18] MEDS: Ketorolac 15 MG/ML VIAL IVP (20:12)
[2022-07-18 20:59] VITALS: PULSE 90; RESP 12; O2SAT 96
== END 2022-07-18 20:39 | disposition home or self-care (01) ==
PROVIDERS: Emergency Provider Emergency Medicine; PCP Internal Medicine
DX: N30.00 Acute cystitis without hematuria (principal)
CPT/HCPCS: 80053; 87077; 96361; 96365; 96367; 96375; 99284; 81003; 81015; 83735; 84484; 85025; 87086; 87186; 99283; J0131; J0696; J1885; J2405; J3475

== ENCOUNTER 2022-07-20 09:53 | Emergency (ER) | payer MEDICARE, OTHER, SELFPAY ==
[2022-07-20] VITALS (20 sets, daily range): BP systolic 112–157; BP diastolic 60–93; PULSE 59–85; RESP 12–32; TEMP 36.6; O2SAT 95–100
--- NOTE | 2022-07-20 10:00 | RT.EKG_ITS ---
APPROVED REPORT Exam: Resting ECG Reason for Exam: SOB Patient Location: E HR:59 bpm ECG Measurements Heart Rate 59 AXIS MI 137 P 74 QRSd 84 QRS 55 QT 434 T 44 QTc 430 Conclusion Sinus bradycardia...rate< 60 Physician: no stemi
--- NOTE | 2022-07-20 10:15 | DI.RAD_ITS ---
Exam(s) XR PORTABLE CHEST AP EXAM: XR PORTABLE CHEST AP CLINICAL HISTORY: PUI, SOB, R/O PNA. TECHNIQUE: 2D digital imaging was performed. COMPARISON: CR XR PORTABLE CHEST AP from 04/18/2022 FINDINGS: LUNGS: Clear. No pleural abnormality seen. HEART: Normal. MEDIASTINUM: Normal. OTHER FINDINGS: None. IMPRESSION: No acute pulmonary findings. DATA REPOSITORY: RADIATION DOSE DELIVERED: Total DLP
--- NOTE | 2022-07-20 10:28 | W.ED.GENAD ---
Discharge Plan Disposition Patient Disposition: HOME Condition: Stable Discharge Details Clinical Impression: CHF exacerbation Primary Care Provider: Mary Dorsey ED Provider: Paris Puente Home Meds and New Rx's Prescriptions: Continued lecithin 400 mg capsule PO TID amlodipine 2.5 mg tablet 2.5 mg PO DAILY Qty: 90 3RF spironolactone 25 mg tablet 25 mg PO DAILY Qty: 90 3RF magnesium oxide 400 mg magnesium tablet 400 mg PO DAILY Qty: 90 3RF duloxetine 60 mg capsule,delayed release(DR/EC) 60 mg PO DAILY Qty: 90 3RF multivitamin [Daily Multi-Vitamin] Tablet 1 tab PO HS cetirizine [Zyrtec] 10 mg tablet 10 mg PO BID Qty: 180 3RF metoclopramide HCl 5 mg tablet 5 mg PO QACHS Qty: 360 3RF pregabalin 225 mg capsule 225 mg PO BID Qty: 180 3RF ondansetron 4 mg tablet,disintegrating 4 mg PO DAILY PRN (Reason: nausea and vomiting) Qty: 14 3RF pravastatin 40 mg tablet 40 mg PO DAILY Qty: 90 3RF potassium chloride 10 mEq capsule, extended release See Rx Instructions .ROUTE .COMPLEX Qty: 90 0RF Hold Instructions: Home Medication placed on hold at Doctor's office Dose Instruction: TAKE 1 CAPSULE EVERY DAY Rx Instructions: TAKE 1 CAPSULE EVERY DAY pantoprazole 20 mg tablet,delayed release (DR/EC) See Rx Instructions .ROUTE .COMPLEX Qty: 180 0RF Dose Instruction: TAKE 1 TABLET TWICE DAILY FOR REFLUX Rx Instructions: TAKE 1 TABLET TWICE DAILY FOR REFLUX calcium carbonate [Tums] 200 mg calcium (500 mg) Tablet,Chewable 500 mg PO DAILY cholecalciferol (vitamin D3) [Vitamin D3] 25 mcg (1,000 unit) Capsule 1,000 unit PO DAILY cephalexin 500 mg capsule 500 mg PO TID 7 Days Qty: 21 0RF aspirin [Aspir-Low] 81 mg Tablet,Delayed Release (Dr/Ec) 81 mg PO DAILY Discharge Instructions Instructions: Heart Failure (ED) Additional Instructions: The workup here shows no evidence of heart attack, improvement of your previous pneumonia, no evidence of blood clots in your lungs. However it appears your CHF has slightly worsened. We gave you medicine to pull fluid off your heart and lungs this will make you have to urinate frequently the next 24 to 48 hours. Please continue taking your normal medications as previously prescribed. Please take the antibiotics as prescribed. Follow up with primary care provider in 3-5 days. Return to ED sooner if any worsening or concerns. Increase oral fluids. Referrals: Mary Dorsey MD [Primary Care Provider] - 5 days Medical Decision Making 72-year-old female presents to the ER with a chief complaint of shortness of breath. Patient was seen here approximately 48 hours ago and diagnosed with a urinary tract infection has been taking the antibiotics (cephalexin) as prescribed per patient report. She reports that she has been feeling bad for the last couple of days she reports shortness of breath began on Monday with intermittent coughing productive of clear white sputum. She also reports some abdominal pain and mild chest pain. Work-up ordered including labs, proBNP due to shortness of breath and tachypnea, chest x-ray and COVID swab ordered. Patient made a PUI. Differential diagnosis includes but not limited to COVID, pneumonia, dehydration, failure to thrive. CBC shows no leukocytosis, D-dimer is elevated at 837, she has more than the age-adjusted the dimer, BUN 27 creatinine 1.1 which is slightly elevated from 2 days ago GFR is 53, magnesium is 1.5 proBNP is 1258 which is elevated from October. She does take spironolactone. COVID is negative. CT rule out PE within normal limits that showed some residual consolidation from previous pneumonia but overall improved from previous. Nodules are smaller please see report. Chest x-ray within normal limits. Patient has been up to commode multiple times after the Lasix administration. I did order a gram of mag IV and 20 mg of Lasix IV. Patient was taken off oxygen and is satting 98% room air. Awaiting second troponin. Patient has had approximately 300ml urine output. Patient has been up multiple times to the bedside commode. I did discuss her results with her and plan for discharge home she verbalizes understanding. She states that she has a PCP appointment next week. Patient has had approximately 600 cc of urine out since the Lasix. I did encourage her to continue taking the antibiotics previously prescribed. Repeat troponin within normal limits. Patient requesting to have me talk to her friend Elle who lives in [place] who is concerned that patient cannot take care of herself at home. I did discuss her extensive work-up here with her friend. 1512: Spoke with care management regarding patient case and details. Patient does not require any skilled needs at this time she most likely will not qualify for her home health. She is not homebound and she does see physical therapy for medical medical record review. She also sees neurology for spinal stenosis and SI joint disorder. Care management agrees to come and speak with patient. Patient is complaining of nausea was given Zofran ODT. Medical Records Medical records reviewed: Yes I reviewed the patient's medical records. Lab Data Lab results reviewed: Yes I reviewed the patient's lab results. Labs: Laboratory Tests Range/Units 07/20/22 07/20/22 07/20/22 10:55 10:55 10:55 WBC (4.4-10.8) 10^3/uL 8.81 RBC (3.93-5.22) 10^6/uL 4.03 Hgb (11.2-15.7) g/dL 12.0 Hct (36.0-46.0) % 35.4 L MCV (80-95) fL 88 MCH (27.0-33.0) pg 29.8 MCHC (32.0-36.0) % 33.9 RDW (11.7-14.6) % 13.8 Plt Count (130-400) 10^3/uL 189 MPV (8.0-11.0) fL 10.8 Immature Gran % 0.5 Neutrophils % 80.5 Lymphocytes % 11.6 Monocytes % 6.6 Eosinophils % 0.5 Basophils % 0.3 Nucleated RBC % (0.0-0.3) % 0.0 Absolute Neutrophils (1.2-6.7) 10^3/uL 7.10 H Absolute Lymphocytes (1.2-3.4) 10^3/uL 1.02 L Absolute Monocytes (0.1-0.8) 10^3/uL 0.58 Absolute Eosinophils (0.0-0.7) 10^3/uL 0.04 Absolute Basophils (0.0-0.2) 10^3/uL 0.03 D-Dimer (<500) ng/mlFEU Sodium (136-145) mmol/L 137 Potassium (3.5-5.1) mmol/L 3.6 Chloride (98-107) mmol/L 100 Carbon Dioxide (21.0-32.0) mmol/L 23.8 Anion Gap (3-11) mmol/L 13.2 H BUN (7-18) mg/dL 27 H Creatinine (0.55-1.02) mg/dL 1.1 H Est GFR (CKD-EPI 2020) (mL/min/1.73m2) 53.39 Glucose (74-106) mg/dL 91 Calcium (8.5-10.1) mg/dL 9.7 Magnesium (1.8-2.4) mg/dL 1.5 L Total Bilirubin (0.2-1.0) mg/dL 0.8 AST (15-37) U/L 37 ALT (14-59) U/L 27 Alkaline Phosphatase (46-116) U/L 93 Troponin I (<or=60) ng/L < 50 NT-Pro-B Natriuret Pep (<300) pg/mL 1258 H Total Protein (6.4-8.2) g/dL 7.6 Albumin (3.4-5.0) g/dL 4.0 COVID-19 Source Nasal/Nares SARS-CoV-2 (PCR) (Negative) Negative Range/Units 07/20/22 07/20/22 10:55 13:27 WBC (4.4-10.8) 10^3/uL RBC (3.93-5.22) 10^6/uL Hgb (11.2-15.7) g/dL Hct (36.0-46.0) % MCV (80-95) fL MCH (27.0-33.0) pg MCHC (32.0-36.0) % RDW (11.7-14.6) % Plt Count (130-400) 10^3/uL MPV (8.0-11.0) fL Immature Gran % Neutrophils % Lymphocytes % Monocytes % Eosinophils % Basophils % Nucleated RBC % (0.0-0.3) % Absolute Neutrophils (1.2-6.7) 10^3/uL Absolute Lymphocytes (1.2-3.4) 10^3/uL Absolute Monocytes (0.1-0.8) 10^3/uL Absolute Eosinophils (0.0-0.7) 10^3/uL Absolute Basophils (0.0-0.2) 10^3/uL D-Dimer (<500) ng/mlFEU 837 H Sodium (136-145) mmol/L Potassium (3.5-5.1) mmol/L Chloride (98-107) mmol/L Carbon Dioxide (21.0-32.0) mmol/L Anion Gap (3-11) mmol/L BUN (7-18) mg/dL Creatinine (0.55-1.02) mg/dL Est GFR (CKD-EPI 2020) (mL/min/1.73m2) Glucose (74-106) mg/dL Calcium (8.5-10.1) mg/dL Magnesium (1.8-2.4) mg/dL Total Bilirubin (0.2-1.0) mg/dL AST (15-37) U/L ALT (14-59) U/L Alkaline Phosphatase (46-116) U/L Troponin I (<or=60) ng/L < 50 NT-Pro-B Natriuret Pep (<300) pg/mL Total Protein (6.4-8.2) g/dL Albumin (3.4-5.0) g/dL COVID-19 Source SARS-CoV-2 (PCR) (Negative) HPI General Mode of arrival: wheelchair. Date/Time Provider Initiated Documentation: 07/20/22 09:58. Limitations to Documentation: no limitations. Information obtained by: patient, RN notes reviewed and old records reviewed. HPI Narrative: 72-year-old female presents to the ER with a chief complaint of shortness of breath. Patient was seen here approximately 48 hours ago and diagnosed with a urinary tract infection has been taking the antibiotics (cephalexin) as prescribed per patient report. She reports that she has been feeling bad for the last couple of days she reports shortness of breath began on Monday with intermittent coughing productive of clear white sputum. She also reports some abdominal pain and mild chest pain. She does appear sickly. She denies any diarrhea. She does seem somewhat confused and is slow to answer questions however no focal neurodeficits noted. Patient was placed on 2 L nasal cannula by nursing staff development coordinator however she was satting 96% on room air in triage. Past medical history includes depression, GERD, bladder carcinoma, UTI, anemia, weakness, hyperlipidemia, smoker. Related Data Home Medications Medication Instructions Recorded Confirmed aspirin 81 mg tablet,delayed 81 mg PO DAILY 09/06/18 07/11/22 release (Aspir-Low) multivitamin (Daily Multi-Vitamin 1 tab PO HS 06/12/19 07/11/22 tablet) calcium carbonate 200 mg calcium 500 mg PO DAILY 04/20/20 07/11/22 (500 mg) chewable tablet (Tums) cholecalciferol (vitamin D3) 25 1,000 unit PO DAILY 04/20/20 07/11/22 mcg (1,000 unit) capsule (Vitamin D3) cetirizine 10 mg tablet (Zyrtec) 10 mg PO BID #180 tabs 05/06/21 07/11/22 metoclopramide HCl 5 mg tablet 5 mg PO QACHS #360 tabs 08/11/21 07/11/22 lecithin 400 mg capsule mg PO TID 11/16/21 07/11/22 pregabalin 225 mg capsule 225 mg PO BID #180 caps 01/18/22 07/11/22 ondansetron 4 mg disintegrating 4 mg PO DAILY PRN nausea and 03/16/22 07/11/22 tablet vomiting #14 tabs pravastatin 40 mg tablet 40 mg PO DAILY #90 tabs 04/13/22 07/11/22 amlodipine 2.5 mg tablet 2.5 mg PO DAILY #90 tabs 05/04/22 07/11/22 magnesium oxide 400 mg PO DAILY #90 tabs 05/04/22 07/11/22 spironolactone 25 mg tablet 25 mg PO DAILY magnesium wasting 05/04/22 07/11/22 #90 tabs pantoprazole 20 mg tablet,delayed See Rx Instructions .Route 05/18/22 07/11/22 release .COMPLEX #180 tabs potassium chloride 10 mEq See Rx Instructions .Route 05/18/22 07/11/22 capsule,extended release .COMPLEX #90 caps duloxetine 60 mg capsule,delayed 60 mg PO DAILY #90 caps 07/11/22 07/11/22 release cephalexin 500 mg capsule 500 mg PO TID 7 days #21 caps 07/18/22 Previous Rx's Medication Instructions Recorded cetirizine 10 mg tablet (Zyrtec) 10 mg PO BID #180 tabs 05/06/21 metoclopramide HCl 5 mg tablet 5 mg PO QACHS #360 tabs 08/11/21 pregabalin 225 mg capsule 225 mg PO BID #180 caps 01/18/22 ondansetron 4 mg disintegrating 4 mg PO DAILY PRN nausea and 03/16/22 tablet vomiting #14 tabs pravastatin 40 mg tablet 40 mg PO DAILY #90 tabs 04/13/22 amlodipine 2.5 mg tablet 2.5 mg PO DAILY #90 tabs 05/04/22 magnesium oxide 400 mg PO DAILY #90 tabs 05/04/22 spironolactone 25 mg tablet 25 mg PO DAILY magnesium wasting 05/04/22 #90 tabs pantoprazole 20 mg tablet,delayed See Rx Instructions .Route 05/18/22 release .COMPLEX #180 tabs potassium chloride 10 mEq See Rx Instructions .Route 05/18/22 capsule,extended release .COMPLEX #90 caps duloxetine 60 mg capsule,delayed 60 mg PO DAILY #90 caps 07/11/22 release cephalexin 500 mg capsule 500 mg PO TID 7 days #21 caps 07/18/22 Allergies Allergy/AdvReac Type Severity Reaction Status Date / Time ciprofloxacin Allergy Unverified 07/18/22 17:07 codeine AdvReac Intermediate Nausea Verified 07/18/22 17:07 nitrofurantoin AdvReac Intermediate bloating, Verified 07/18/22 17:07 weakness hydrochlorothiazide AdvReac Mild hypomagnese Verified 07/18/22 17:07 pop narcotics AdvReac Intermediate Nausea, Uncoded 07/18/22 17:07 vomiting General Stated Complaint: SOB ROSENDO: 2 Review of Systems All systems reviewed & are unremarkable except as noted in HPI and below Constitutional Constitutional: Reports as per HPI Cardiovascular Cardiovascular: Reports dyspnea Respiratory Respiratory: Reports cough, Reports excessive phlegm production and Reports dyspnea Gastrointestinal Gastrointestinal: Reports abdominal pain PFSH All Active Problems (Updated 07/20/22 @ 14:08 by Paris Puente NP) Acute cystitis (Acute) CHF exacerbation (Acute) Ulnar neuropathy at elbow of left upper extremity (Acute) Peripheral neuropathy (Acute 07/01/14) Paresthesias (Chronic) Spasticity (Acute) Coordination impairment (Acute 07/05/16) Spinal stenosis, other region (Acute 12/14/11) 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; cervical spondylosis; operated 08/03/16 Cervical myelopathy (Chronic) Spinal stenosis, lumbar region without neurogenic claudication (Acute 12/14/11) Osteoarthritis of spine with radiculopathy, cervical region (Acute 09/05/11) Sacroiliac joint dysfunction of right side (Acute) Spinal stenosis of lumbar region with radiculopathy (Acute) 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 Dr Velazco, [facility] Neurology Essential hypertension (Acute 02/26/13) Anabel cardiac risk >20% in next 10 years (Chronic) 2020: 32% Urothelial carcinoma of bladder (Chronic) Magnesium-losing nephropathy (Chronic) very mild; tx spironolactone Delayed gastric emptying (Chronic) mild GERD (gastroesophageal reflux disease) (Chronic) Depression (Chronic 07/01/14) Medical marijuana use (Chronic) Arthritis of left glenohumeral joint (Chronic ~07/01/14) Leg edema (Acute) Osteopenia (Acute 12/14/11) Osteoporosis wrist, osteopenia hip, normal bone density of spine 2017 osteopenia 2011 Medical History Acute UTI Acute UTI Adhesive capsulitis of left shoulder Injected 12/11/2018 Anemia Hx of bacterial pneumonia Hyperlipidemia Neuropathy Pneumonia Sessile colonic polyp (03/14/18) Smoker Spinal stenosis Unintentional weight loss Weakness Surgical History Anterior Fusion Cervical Spine C3-C5 (07/31/16) Jul 2016, [facility] Dr. Martinez Arthroplasty of knee Per patient she has not had a TOTAL KNEE Breast, Lumpectomy Cervical spondylosis 11/03/20 C5-[address] Everett Meehan Cardoza Day 11/04/20 D/C'd home Colonoscopy - MAC (03/12/18) Colon,transverse,polyp,biopsy - fragment of sessile serrated adenoma. (Dr Neely) H/O cystoscopy (09/06/18) w/transurethral resection of bladder tumors-Dr Wiggins H/O laminectomy (~06/2021) APD-L3-L4 laminectomy, medial fa for decompression of stenosis, lateral disectomy [id number] Hemiarthroplasty (09/07/15) L shoulder Dr Luz History of hemiarthroplasty of left shoulder 09/07/2015 Repair of umbilical hernia Rotator Cuff Repair Status post shoulder hemiarthroplasty Tenotomy and debridement tendon L shoulder (10/25/17) Family History Father Essential hypertension Glaucoma Alzheimer's dementia Social History Smoking/Tobacco Use Status: Former Tobacco Use Smoking risk assessment performed?: Yes Alcohol Intake: former Substance use type: marijuana Details: marijuana: uses qd. Marijuana: t-3, couple hits Household members: none Housing: house Number of Children: 0 Pets and animals: Yes Pets and animals: cat(s) and dog(s) Current gender identity: female What type of physical activity do you participate in: none and other Details: PT 2 xweek Frequency: 1-2 times per week Seatbelt use: always Drive intox or ride w/intox flatbed driver: No Working smoke detector in home: Yes Fire extinguisher in home: Yes Carbon monox detector in home: Yes Do you feel safe at home: Yes Do you feel safe in your relationship?: Yes Exam Narrative Exam Narrative: Constitutional: Alert and oriented x2. Appears stated age. Appears frail and sickly. Normal body habitus. Head: Normocephalic, no trauma. Eyes: Pupils PERRL, Red reflex noted, EOM's intact. Eyelids symmetrical without lesions, discharge, or swelling. ENT: Bilateral TM's WNL, External ear normal to inspection, no mastoid TTP, swelling, or erythema, Nasal turbinates WNL, no nasal discharge. Normal dentition, Posterior pharynx WNL, no exudate. Chest: RRR, Normal S1, S2, distal pulses intact. Resp: Lungs clear to auscultation bilaterally, no wheezes, rales, or rhonchi. Patient is tachypneic. Abdomen: Soft, non-distended, Normoactive bowel sounds all 4 quads. Musculoskeletal: Unable to assess gait. 5/5 strength to all four extremities. Skin: No suspicious rashes or lesions. Capillary refill less than 2 sec. Neurologic: Cranial nerves II-XII intact. Alert and oriented x 3. Motor: No deficits noted. Sensory: Intact bilaterally all 4 extremities. Reflexes: DTR's intact bilaterally.. Hematologic/Lymphatic: No ecchymosis, no lymphadenopathy. Course Vital Signs Vital signs: Vital Signs Temperature 36.6 C 07/20/22 10:02 Pulse 77 07/20/22 10:02 Respiratory Rate 24 07/20/22 10:02 Blood Pressure 132/67 07/20/22 10:02 Pulse Oximetry 95 07/20/22 10:02 Temperature 36.6 C 07/20/22 10:02 Temperature Source Temporal Artery Scan 07/20/22 10:02 Pulse 77 07/20/22 10:02 Respiratory Rate 24 07/20/22 10:02 Blood Pressure 132/67 07/20/22 10:02 Blood Pressure Position Sitting 07/20/22 10:02 Pulse Oximetry 95 07/20/22 10:02 Oxygen Delivery Method Room Air 07/20/22 10:02 Oxygen Flow Rate 0 07/20/22 10:02
[2022-07-20 11:00] LABS: Source Nasal/Nares
[2022-07-20 11:02] LABS: Abs Immature Grans 0.04 10^3/uL (0.0-0.06); Absolute Basophil Count 0.03 10^3/uL (0.0-0.2); Absolute Eosinophil Count 0.04 10^3/uL (0.0-0.7); Absolute Lymphocyte Count 1.02 10^3/uL (1.2-3.4); Absolute Monocyte Count 0.58 10^3/uL (0.1-0.8); Basophils % 0.3; Eosinophils % 0.5; HCT 35.4 % (36.0-46.0); Immature Grans % 0.5; Lymphocytes % 11.6; MCH 29.8 pg (27.0-33.0); MCHC 33.9 % (32.0-36.0); MCV 88 fL (80-95); MPV 10.8 fL (8.0-11.0); Monocytes % 6.6; Neutrophils % 80.5; Platelet Count 189 10^3/uL (130-400); RBC 4.03 10^6/uL (3.93-5.22); RDW 13.8 % (11.7-14.6); RDW-SD 44.9 fL; WBC 8.81 10^3/uL (4.4-10.8)
[2022-07-20 11:26] LABS: ALT 27 U/L (14-59); AST 37 U/L (15-37); Alkaline Phosphatase 93 U/L (46-116); Anion Gap 13.2 mmol/L (3-11); BUN 27 mg/dL (7-18); Bilirubin, Total 0.8 mg/dL (0.2-1.0); CO2 23.8 mmol/L (21.0-32.0); CREATININE 1.1 mg/dL (0.55-1.02); Calcium 9.7 mg/dL (8.5-10.1); Chloride 100 mmol/L (98-107); Estimated GFR 53.39 (mL/min/1.73m2); Glucose 91 mg/dL (74-106); Magnesium 1.5 mg/dL (1.8-2.4); NT-proBNP 1258 pg/mL (<300); Potassium 3.6 mmol/L (3.5-5.1); Sodium 137 mmol/L (136-145); Total Protein 7.6 g/dL (6.4-8.2); Troponin I < 50 ng/L (<or=60)
--- NOTE | 2022-07-20 11:30 | DI.CT_ITS ---
Exam(s) CT CHEST PE CTA EXAM: CT CHEST PE CTA CLINICAL HISTORY: SOb, elevated Dimer. TECHNIQUE: Imaging Protocol: Axial CT angiography was performed with multi-slice acquisition and mu lti-planar and/or 3D reconstructions. CONTRAST MATERIAL: Intravenous: Omnipaque 350 Contrast volume:structured data in ml COMPARISON: CT CT CHEST PE CTA from 04/18/2022 FINDINGS: CT angiography of the chest was performed with intravenous infusion of 90 cc of Omnipaque 350. There are moderate diffuse changes of central lobular emphysema period areas of peripheral consolidat ion seen in the left lung base on prior CT of April 18 are decreased on today's examination. Some r esidual streaky linear radiodensities and nodular radiodensities persist, the largest nodule is about 8 millimeters mean diameter period follow-up chest CT recommended in 6 months to document the resolu tion of these nodular densities period. No pleural effusion. Tracheobronchial tree appears intact. No evidence of pulmonary embolic disease. Thoracic aorta is of normal diameter, no thoracic aortic an eurysm or dissection, major branch vessels appear intact. No mediastinal or hilar adenopathy. Images obtained through the upper abdomen show unremarkable appearance of the visualized portions of the liver, spleen, pancreas, adrenals, and kidneys except for incidental splenic calcifications. Superior mesenteric artery shows significant atheromatous calcification and noncalcified plaque, deloris mated luminal diameter stenosis of 70-90 percent proximally. IMPRESSION: Presumed residual post consolidative changes of left lower lobe as described above. Follow-up chest CT recommended in 6 months due to the nodular appearance of persistent radiodensities in left lower l obe. No evidence of pulmonary embolic disease. RADIATION DOSE DELIVERED: 302.53mGy.cm Total DLP 302.53mGy.cm Total DLP !Error CTDIvol DATA REPOSITORY: All CT scans at this facility are submitted to the National Radiology Data Registry (NRDR) Dose Index Registry (DIR) with the [employer] (ACR). RADIATION OPTIMIZATION: All CT scans at this facility use at least one of these dose optimization te chniques: automated exposure control; mA and/or kV adjustment per patient size (includes targeted exa ms where dose is matched to clinical indication); or iterative reconstruction.
[2022-07-20 11:37] LABS: COVID-19 PCR Negative (Negative)
[2022-07-20 11:38] LABS: D-Dimer 837 ng/mlFEU (<500)
[2022-07-20] MEDS: Furosemide 20 MG/2 ML VIAL IVP (11:57)
[2022-07-20] MEDS: MAGNESIUM SULFATE 1 GM/100 ML BAG IVPB (11:57)
[2022-07-20] MEDS: Omnipaque 350 MG/ML 500 ML BTL-Imaging package 90 ML IJ (12:29)
[2022-07-20] MEDS: Normal Saline Flush 10 ML SYR IVP (12:30)
[2022-07-20 13:52] LABS: Troponin I < 50 ng/L (<or=60)
[2022-07-20] MEDS: Ondansetron O.D.T. 4 MG TABEF PO (15:14)
--- NOTE | 2022-07-20 15:51 | CMPROGNOTE_ITS ---
- If Service Date Differs Date of service: 07/20/22 Time of Service: 15:51 Care Management Progress Note Belén presents in the ED for weakness and a UTI. At the request of ED provider, CM meets with Belén to assess her needs. Belén reports she lives alone in [facility]. She is independent with her ADLs and ambulates independently. She has Meals on Wheels through the [place] [facility] and has a bilingual case manager, Ramiro Wilson, through the [facility]. No further needs identified at this time.
== END 2022-07-20 15:38 | disposition home or self-care (01) ==
PROVIDERS: Emergency Provider Registered Nurse Emergency; PCP Internal Medicine
DX: I11.0 Hypertensive heart disease with heart failure (principal); I50.9 Heart failure, unspecified; R06.02 Shortness of breath; R79.1 Abnormal coagulation profile
CPT/HCPCS: 71275; 80053; 87635; 93005; 96365; 96375; 99284; 99285; 71045; 83735; 83880; 84484; 85025; 85379; 93010; J1941; J3475

== ENCOUNTER → 2022-09-13 12:20 | Outpatient (BNVA) | payer MEDICARE, OTHER, SELFPAY | PROVIDERS: PCP Nurse Practitioner Adult Health; Referring Provider Internal Medicine; Visit Provider Psychiatry & Neurology Neurology | DX: G95.89 Other specified diseases of spinal cord (principal); Z98.1 Arthrodesis status; Z98.890 Other specified postprocedural states; I10 Essential (primary) hypertension; M48.061 Spinal stenosis, lumbar region without neurogenic claudication | CPT/HCPCS: 99214 ==

== ENCOUNTER 2022-09-24 14:15 | Emergency (ER) | payer MEDICARE, OTHER, SELFPAY ==
[2022-09-24] VITALS (44 sets, daily range): BP systolic 112–161; BP diastolic 61–122; PULSE 65–153; RESP 14–33; TEMP 36.6; O2SAT 100
--- NOTE | 2022-09-24 14:45 | RT.EKG_ITS ---
APPROVED REPORT Exam: Resting ECG Reason for Exam: weakness Patient Location: E HR:67 bpm ECG Measurements Heart Rate 67 AXIS AZ 132 P 64 QRSd 83 QRS 67 QT 417 T 50 QTc 441 Conclusion Sinus rhythm...normal P axis, V-rate 60- 99 sinus rhythm, normal axis, nomal intervals
[2022-09-24] MEDS: Ondansetron 4 MG/2 ML VIAL IVP (15:08)
[2022-09-24] MEDS: Normal Saline Flush 10 ML SYR IVP ×2 (15:09→16:32)
--- NOTE | 2022-09-24 15:15 | DI.CT_ITS ---
Exam(s) CT THORAX ABD/PEL CTA EXAM: CT THORAX ABD/PEL CTA CLINICAL HISTORY: pain from chest/abdomen radiating into back. TECHNIQUE: Imaging Protocol: Axial CT angiography was performed with multi-slice acquisition and m ulti-planar and/or 3D reconstructions. CONTRAST MATERIAL: Intravenous: Omnipaque 350 Contrast volume:70 ml Oral: no COMPARISON: CT CT CHEST LUNG CANCER SCREEN from 07/06/[address] CHEST LUNG CANCER SCREEN from 09/07/[address] CHEST PE CTA from 04/18/[address] CHEST PE CTA from 07/20/2022 FINDINGS: CHEST: Pulmonary Arteries: No evidence of filling defect to suggest pulmonary emboli. Tracheobronchial tree: Patent where visualized. Mild bronchiectasis. Mediastinum and Amarilis: No dominant adenopathy or fluid collection. Pulmonary parenchyma: No consolidation or dominant measurable mass. Moderate emphysematous changes. 6 millimeter nodule left lower lobe which appears small compared to 2019 exam. Pleura: No effusion or pneumothorax. Heart: The heart is not dilated. Moderate to severe coronary artery calcifications are seen. Aorta: Thoracic aorta non-dilated. Atherosclerotic changes. Bones: Degenerative disc changes. Scoliosis. Left shoulder prosthesis. ABDOMEN AND PELVIS: Abdomen: Celiac axis/mesenteric arteries: No evidence of occlusion. Celiac axis proximal 50 percent stenosis. SMA atherosclerotic changes causing [id number] stenosis. Renal Arteries: Right no evidence of occlusion or significant stenosis. Left atherosclerotic changes causing moderate stenosis. There is a single renal artery perfusing each kidney. Aorta: No evidence of occlusion or significant stenosis. No aneurysm or dissection. Pelvis: Iliac Arteries: Approximately 50 percent left common iliac artery stenosis secondary to atherosclero tic changes. Right iliac artery atherosclerotic changes causing approximately 50 percent stenosis. Common Femoral Arteries: No evidence of occlusion or significant stenosis. ABDOMEN: Liver: Normal density. Small cyst.. Portal, Superior Mesenteric, and Splenic Veins: Unremarkable. Gallbladder and Biliary Tract: No radiodense calculus or dilation. Pancreas: Mild atrophy. Normal density, no abnormal calcifications or inflammatory process. Spleen: Normal. Adrenals: No focal masses seen. Mild bilateral enlargement could indicate hyperplasia. Kidneys: Normal size, contour and axis. No radiodense stones or obstructive uropathy. Small cysts. No suspicious masses seen. Bowel: Small hiatal hernia. No obstruction or bowel wall thickening. Appendix is unremarkable. Peritoneal Cavity: No ascites, collection or mesenteric inflammatory response. Lymph Nodes: Within normal limits. Bones: Degenerative changes. Soft Tissues: Unremarkable. PELVIS: Bladder: Not well distended, no gross wall thickening. Reproductive Organs: Calcified fibroids. Lymph Nodes: Within normal limits. Degenerative changes. IMPRESSION: No evidence of pulmonary emboli or aortic dissection. Moderate stenosis of both common iliac arteries. Moderate stenosis SMA and left renal artery. 6 millimeter nodule left lower lobe appears smaller when compared with prior exams. Recommend low-do se screening chest CT in 1 year. RADIATION DOSE DELIVERED: 744.93mGy.cm Total DLP DATA REPOSITORY: All CT scans at this facility are submitted to the National Radiology Data Registry (NRDR) Dose Index Registry (DIR) with the [employer] (ACR). RADIATION OPTIMIZATION: All CT scans at this facility use at least one of these dose optimization te chniques: automated exposure control; mA and/or kV adjustment per patient size (includes targeted exa ms where dose is matched to clinical indication); or iterative reconstruction.
--- NOTE | 2022-09-24 15:17 | ED.GENADUL_ITS ---
Discharge Plan Disposition Patient Disposition: Home Condition: Improving Discharge Details Clinical Impression: Acute UTI, Malaise and fatigue Primary Care Provider: Chanel Nelson ED Provider: Alberto Beltran Home Meds and New Rx's Prescriptions: Continued lecithin 400 mg capsule 400 mg PO TID magnesium oxide 400 mg magnesium tablet 400 mg PO DAILY Qty: 90 3RF duloxetine 60 mg capsule,delayed release(DR/EC) 60 mg PO DAILY Qty: 90 3RF ondansetron 4 mg tablet,disintegrating 4 mg PO DAILY PRN (Reason: nausea and vomiting) Qty: 14 3RF spironolactone 25 mg tablet 25 mg PO DAILY Qty: 90 3RF potassium chloride 10 mEq capsule, extended release See Rx Instructions .ROUTE .COMPLEX Qty: 90 3RF Hold Instructions: Home Medication placed on hold at Doctor's office Dose Instruction: TAKE 1 CAPSULE EVERY DAY Rx Instructions: TAKE 1 CAPSULE EVERY DAY Calcium 600 with Vitamin D3 600 mg-10 mcg (400 unit) tablet,chewable 1 tab PO DIRECTED Women's Multivitamin Gummies 200 mcg tablet,chewable 1 tab PO DAILY vitamin B complex [B Complex-Vitamin B12] Tablet 1 tab PO DAILY celecoxib [Celebrex] 200 mg capsule 200 mg PO DAILY Qty: 30 0RF Rx Instructions: Take in AM with food for chronic spine pain (cervical & lumbar) multivitamin [Daily Multi-Vitamin] Tablet 1 tab PO HS cetirizine [Zyrtec] 10 mg tablet 10 mg PO BID Qty: 180 3RF pravastatin 40 mg tablet 40 mg PO DAILY Qty: 90 3RF pantoprazole 20 mg tablet,delayed release (DR/EC) See Rx Instructions .ROUTE .COMPLEX Qty: 180 0RF Dose Instruction: TAKE 1 TABLET TWICE DAILY FOR REFLUX Rx Instructions: TAKE 1 TABLET TWICE DAILY FOR REFLUX amlodipine 2.5 mg tablet See Rx Instructions .ROUTE .COMPLEX Qty: 90 3RF Dose Instruction: TAKE 1 TABLET EVERY DAY Rx Instructions: TAKE 1 TABLET EVERY DAY pregabalin 225 mg capsule 225 mg PO BID Qty: 180 3RF Discharge Instructions Instructions: Urinary Tract Infection in Women (ED) Additional Instructions: Please get plenty of rest and stay well-hydrated. If you develop any new or significant worsening of symptoms feel free to return to the emergency department for reassessment. Otherwise if you are not improving in the next 3 to 4 days please follow-up with your primary care provider for reassessment. Referrals: Chanel Nelson NP [Primary Care Provider] - 3 days (If not improving) Discharge Data Discharge Date/Time-TO BE ENTERED AT DEPARTURE: 09/24/22 23:18 Medical Decision Making <MILTON Harris - Last Filed: 10/03/22 06:30> Patient is a pleasant 72-year-old female presented with chief complaint of general malaise not feeling well. Reports that she is feeling weak. She denies any focal deficits. Past medical history is pertinent for peripheral neuropathy, paresthesias, spinal stenosis, GERD, depression, UTI, CHF. States that this discomfort began this morning and is progressively worsening. States that she is feeling slightly short of breath and anxious. States that she has some radiation of pain from her chest and abdomen into her back. She denies any nausea or vomiting. Denies any fevers or chills. No change in bowel or bladder habits. On exam, patient appears anxious and slightly ill but not acutely toxic. No respiratory distress. She is endorsing some nausea, will give her Zofran as well as Ativan to help with her anxiety. I do not note any palpable pulsatile masses. Her lungs are clear. Normal cardiac exam. She does have diminished pulses in the bilateral feet, will Doppler these. Did consider potential aortic abnormality such as dissection or aneurysm, will obtain CTA. With the patient's recurrent history of UTIs and generalized weakness, also considered recurrent UTI. This could also be associated with electrolyte abnormality, ACS, versus other. She denies any acute change in medications. At the end of my shift, care transition to Alberto Beltran with imaging and labs pending. <Alberto Beltran NP - Last Filed: 09/25/22 14:59> Patient is a pleasant 72-year-old female presented with chief complaint of general malaise not feeling well. Reports that she is feeling weak. She denies any focal deficits. Past medical history is pertinent for peripheral neuropathy, paresthesias, spinal stenosis, GERD, depression, UTI, CHF. States that this discomfort began this morning and is progressively worsening. States that she is feeling slightly short of breath and anxious. States that she has some radiation of pain from her chest and abdomen into her back. She denies any nausea or vomiting. Denies any fevers or chills. No change in bowel or bladder habits. On exam, patient appears anxious and slightly ill but not acutely toxic. No respiratory distress. She is endorsing some nausea, will give her Zofran as well as Ativan to help with her anxiety. I do not note any palpable pulsatile masses. Her lungs are clear. Normal cardiac exam. She does have diminished pulses in the bilateral feet, will Doppler these. Did consider potential aortic abnormality such as dissection or aneurysm, will obtain CTA. With the patient's recurrent history of UTIs and generalized weakness, also considered recurrent UTI. This could also be associated with electrolyte abnormality, ACS, versus other. She denies any acute change in medications. At the end of my shift, care transition to Alberto Beltran with imaging and labs pending. 1600-patient report received from MILTON Harris. Please see above documentation for patient presentation, physical exam, and initial plan of care. Patient pending CT imaging and lab review. Review of labs show an unremarkable CBC with no significant or severe anemia, no leukocytosis with shift, CMP does show slightly low potassium at 3.4, elevated anion gap of 14.4, BUN of 31 patient also has low mag at 1.5 we will give oral magnesium, oral potassium, and will give patient additional fluids. Labs otherwise are unremarkable, patient has negative troponin. Urinalysis does show signs of infection with nitrite leukocyte Estrace and greater than 50 WBCs. I feel highly suspicious that this is because of patient's weakness and not feeling well. Will give patient fosfomycin for UTI and continue to reassess after CT imaging. Review of CT imaging shows significant and multiple areas of arterial stenosis but no signs of aneurysm or occlusion. I do feel this is reassuring. Patient's delta troponin was also negative. Patient reassessed and stated slight improvement. We will plan on allowing patient to eat and p.o. hydrate and will ambulate patient prior to disposition. Patient was able to ambulate with simple standby assistance only. Patient states she typically uses a cane or walker at home. Patient was encouraged to use these assistive devices while at home to make sure she stays safe. Did discuss return precautions but at this time I do feel that patient can safely return home given otherwise negative work-up. staffing assistant did inform me that patient's ride who is well familiar with patient did state concern over patient's living condition. They state that patient overall lives with poor living circumstances. Patient did not bring this to our attention or mention this to us but friend did state that patient was willing to speak with behavioral health at primary care office in the past. Will refer patient back to primary care provider for further discussion of long-term care management. After discussion of diagnosis and plan of care patient has no further needs, questions, or concerns and states clear understanding to return to the emergency department for any worsening symptoms. This documentation was generated using [employer] dictation system, please disregard any oddities of phrase or misspellings. Imaging Data Radiologic Study: Imaging: CT Scan Radiologist's impression: Exam: CTA Chest With Contrast CTA Abdomen and Pelvis With Contrast Exam date and time: 09/24/2022 4:31 PM Age: 72 years old Clinical indication: Other: Pain from chest/abdomen radiating into back TECHNIQUE: Imaging protocol: Computed tomographic angiography of the chest with contrast. Computed tomographic angiography of the abdomen and pelvis with contrast. 3D rendering (Not supervised by radiologist): MIP and/or 3D reconstructed images were created by the technologist. Radiation optimization: All CT scans at this facility use at least one of these dose optimization techniques: automated exposure control; mA and/or kV adjustment per patient size (includes targeted exams where dose is matched to clinical indication); or iterative reconstruction. Contrast material: OMNIPAQUE 350; Contrast volume: 70 ml; Contrast route: INTRAVENOUS (IV); COMPARISON: CT CHEST PE CTA 07/20/2022 12:21 PM FINDINGS: VASCULATURE: Pulmonary arteries: Pulmonary artery is well opacified. No embolism. Aorta: Thoracic aorta is unremarkable in course and caliber. There is atherosclerotic calcium. No dissection. No aneurysm. Abdominal aorta with atherosclerotic calcium. No aneurysmal change. No occlusion. Celiac trunk and mesenteric arteries: Celiac artery is patent. Superior mesenteric artery with non osteal eccentric atheromatous material causing a 50% diameter moderate stenosis. There is also atherosclerotic calcium within the smaller branch vessels of the SMA with areas of [id number] stenotic change. Renal arteries: Right renal artery is patent. No significant stenosis. Left renal artery with atherosclerotic calcium at the origin and moderate stenosis at approximately 60% diameter. Right iliac arteries: Right common iliac artery atherosclerotic changes and moderate stenosis at 50% diameter. Left iliac arteries: Left common iliac artery atherosclerotic changes with moderate stenosis at approximally 50% diameter. CHEST: Lungs: Bilateral moderate emphysematous lung changes and bronchiectasis consistent with COPD. No acute lung infiltrates or edema. Left lower lobe lateral basilar 5 x 6 mm noncalcified nodule. Additional left lower lobe mid lateral segment subpleural 3 mm noncalcified nodule. No significant change since 07/20/2022. Pleural spaces: No pleural effusion. Heart: Normal heart size. No pericardial effusion. Moderate to severe coronary artery atherosclerotic calcium. ABDOMEN AND PELVIS: Liver: The liver is normal in size, contour and overall attenuation. A small enhancing focus is seen in the inferolateral right hepatic lobe measuring 8 mm. This small blush of contrast is likely a benign focus. Ultrasound follow-up in correlation may be helpful. See series 4, image 60. Possibly a rapidly filling hemangioma or other vascular anomaly. No distinct masslike change. Not definable by earlier CT from 07/20/2022. Gallbladder and bile ducts: No gallstones or acute biliary tract findings. Pancreas: Mild pancreatic atrophy. No acute changes. Spleen: The spleen is normal in size, contour and attenuation. Adrenal glands: Bilateral adrenal gland fullness without kandi nodularity. Possibility of adrenal hyperplasia. Kidneys and ureters: Kidneys are unremarkable bilaterally. No obstructive uropathy. No calculi. Subcentimeter right lateral and right superior cortical cysts. No further imaging follow-up recommended based on MIPS criteria. Stomach and bowel: Gastric contour is unremarkable. There is a small hiatal hernia without acute features. Small bowel loops are unremarkable. Large bowel without acute changes. Appendix: Non inflamed appendix on series 4, images 69-81. Intraperitoneal space: No free fluid. No free air. Nonspecific minor free fluid in the right-side of the pelvic cul-de-sac. This has simple appearance based on attenuation. Urinary bladder: Urinary bladder is poorly distended. Unremarkable as visualized. Reproductive: Uterine atrophic changes and features suggesting calcifying degenerative fibroids. Follow-up with ultrasound may be warranted. Lymph nodes: Unremarkable. No enlarged lymph nodes. Bones/joints: Degenerative thoracic spine changes. Previous multilevel low cervical spine fusion. Degenerative lumbar spine disease. Soft tissues: Unremarkable. Other findings: Bilateral common femoral arteries and proximal superficial femoral arteries with significant atherosclerotic changes and stenotic lesions of moderate to severe appearance. IMPRESSION: 1. No aortic dissection or aneurysmal change. 2. No pulmonary arterial embolism. 3. Superior mesenteric artery non osteal moderate stenosis. 4. Left renal artery origin moderate stenosis. 5. Bilateral iliac arteries with moderate proximal stenosis. 6. Emphysematous lung changes. Nonspecific left lower lobe nodules.For patients at low risk (minimal or absent history of smoking and of other known risk factors), recommend CT Chest at 3-6 months, then consider CT Chest at 18-24 months. For patients at high risk (history of smoking or of other known risk factors), recommend CT Chest at 3-6 months, then CT Chest at 18-24 months. (Reference: Joe) 7. Nonspecific focal enhancement in the lateral mid right hepatic lobe measuring 8 mm. Recommend ultrasound follow-up. This could represent an early or rapidly filling hemangioma or other vascular anomaly. Can not exclude a small enhancing mass. 8. Uterine atrophy and appearance suggesting degenerative fibroids. Ultrasound follow-up is suggested. 9. Bilateral adrenal gland fullness which could represent hyperplasia. No distinct nodules. 10. Degenerative thoracic and lumbar spine changes. HPI <MILTON Harris - Last Filed: 10/03/22 06:30> General Date/Time Provider Initiated Documentation: 09/24/22 14:48 . Limitations to Documentation: no limitations . Information obtained by: patient, RN notes reviewed and old records reviewed . History of Present Illness 72 year old F presents to the emergency department with the chief complaint of general malaise, overall feeling of weakness, chest, abdomen and back pain, described as moderate, with intensity rated at 6. Quality is described as aching, and is localized to the back. Patient abdomen. Patient started experiencing this day(s) and it has been constant. No relieving factors improve symptom(s), No exacerbating factors reported . Patient notes chest pain, loss of appetite and malaise; denies cough, fever/chills, headaches, nausea/vomiting, rash and shortness of breath. Patient did receive the following treatments prior to arrival, none Related Data Home Medications Medication Instructions Recorded Confirmed multivitamin (Daily Multi-Vitamin 1 tab PO HS 06/12/19 09/25/22 tablet) cetirizine 10 mg tablet (Zyrtec) 10 mg PO BID #180 tabs 05/06/21 09/25/22 lecithin 400 mg capsule 400 mg PO TID 11/16/21 09/25/22 pravastatin 40 mg tablet 40 mg PO DAILY #90 tabs 04/13/22 09/25/22 magnesium oxide 400 mg PO DAILY #90 tabs 05/04/22 09/25/22 pantoprazole 20 mg tablet,delayed See Rx Instructions .Route 05/18/22 09/25/22 release .COMPLEX #180 tabs duloxetine 60 mg capsule,delayed 60 mg PO DAILY #90 caps 07/11/22 09/25/22 release ondansetron 4 mg disintegrating 4 mg PO DAILY PRN nausea and 07/27/22 09/25/22 tablet vomiting #14 tabs potassium chloride 10 mEq See Rx Instructions .Route 07/27/22 09/25/22 capsule,extended release .COMPLEX #90 caps spironolactone 25 mg tablet 25 mg PO DAILY magnesium wasting 07/27/22 09/25/22 #90 tabs amlodipine 2.5 mg tablet See Rx Instructions .Route 08/24/22 09/25/22 .COMPLEX #90 tabs pregabalin 225 mg capsule 225 mg PO BID #180 caps 08/25/22 09/25/22 calcium carbonate 600 mg-vitamin 1 tab PO DIRECTED 09/05/22 09/25/22 D3 10 mcg (400 unit) chewable tablet (Calcium 600 with Vitamin D3) celecoxib 200 mg capsule (Celebrex) 200 mg PO DAILY #30 caps 09/05/22 09/25/22 multivitamin with minerals-folic 1 tab PO DAILY 09/05/22 09/25/22 acid 200 mcg chewable tablet (Women's Multivitamin Gummies) vitamin B complex (B 1 tab PO DAILY 09/05/22 09/25/22 Complex-Vitamin B12 tablet) Previous Rx's Medication Instructions Recorded cetirizine 10 mg tablet (Zyrtec) 10 mg PO BID #180 tabs 05/06/21 pravastatin 40 mg tablet 40 mg PO DAILY #90 tabs 04/13/22 magnesium oxide 400 mg PO DAILY #90 tabs 05/04/22 pantoprazole 20 mg tablet,delayed See Rx Instructions .Route 05/18/22 release .COMPLEX #180 tabs duloxetine 60 mg capsule,delayed 60 mg PO DAILY #90 caps 07/11/22 release ondansetron 4 mg disintegrating 4 mg PO DAILY PRN nausea and 07/27/22 tablet vomiting #14 tabs potassium chloride 10 mEq See Rx Instructions .Route 07/27/22 capsule,extended release .COMPLEX #90 caps spironolactone 25 mg tablet 25 mg PO DAILY magnesium wasting 07/27/22 #90 tabs amlodipine 2.5 mg tablet See Rx Instructions .Route 08/24/22 .COMPLEX #90 tabs pregabalin 225 mg capsule 225 mg PO BID #180 caps 08/25/22 celecoxib 200 mg capsule (Celebrex) 200 mg PO DAILY #30 caps 09/05/22 Allergies Allergy/AdvReac Type Severity Reaction Status Date / Time ciprofloxacin Allergy Verified 09/25/22 15:08 codeine AdvReac Intermediate Nausea Verified 09/25/22 15:08 nitrofurantoin AdvReac Intermediate bloating, Verified 09/25/22 15:08 weakness hydrochlorothiazide AdvReac Mild hypomagnese Verified 09/25/22 15:08 pop narcotics AdvReac Intermediate Nausea, Uncoded 09/25/22 15:08 vomiting General Stated Complaint: GenMedical ROSENDO: 3 Review of Systems <MILTON Harris - Last Filed: 10/03/22 06:30> Constitutional Constitutional: Reports as per HPI, Denies chills, Denies fever(s) and Denies headache(s) Eyes Eyes: Denies change in vision ENT Ears, Nose, Mouth, and Throat: Denies dizziness and Denies headache(s) Cardiovascular Cardiovascular: Reports as per HPI, Denies dyspnea and Denies dyspnea on exertion Respiratory Respiratory: Reports as per HPI, Denies cough, Denies pain on inspiration, Denies dyspnea and Denies dyspnea on exertion Gastrointestinal Gastrointestinal: Reports as per HPI, Denies diarrhea, Denies nausea and Denies vomiting Musculoskeletal Musculoskeletal: Reports as per HPI Integumentary/Breasts Skin/Breast: Reports as per HPI and Denies rash Neurologic Neurologic: Reports as per HPI, Denies dizziness and Denies headache(s) [facility] <MILTON Harris - Last Filed: 10/03/22 06:30> All Active Problems (Updated 09/25/22 @ 18:55 by MILTON Erickson) Acute UTI (Acute) Malaise and fatigue (Acute) Urinary tract infection (Acute) Back pain (Acute) Nail dystrophy (Acute) Ulnar neuropathy at elbow of left upper extremity (Acute) Peripheral neuropathy (Acute 07/01/14) Paresthesias (Chronic) Spasticity (Acute) Coordination impairment (Acute 07/05/16) Spinal stenosis, other region (Acute 12/14/11) 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; cervical spondylosis; operated 08/03/16 Cervical myelopathy (Chronic) Spinal stenosis, lumbar region without neurogenic claudication (Acute 12/14/11) Osteoarthritis of spine with radiculopathy, cervical region (Acute 09/05/11) Sacroiliac joint dysfunction of right side (Acute) Spinal stenosis of lumbar region with radiculopathy (Acute) 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 Dr Velazco, [facility] Neurology Essential hypertension (Acute 02/26/13) [place] cardiac risk >20% in next 10 years (Chronic) 2020: 32% Urothelial carcinoma of bladder (Chronic ~2016) Magnesium-losing nephropathy (Chronic) very mild; tx spironolactone Delayed gastric emptying (Chronic) mild GERD (gastroesophageal reflux disease) (Chronic) Depression (Chronic 07/01/14) Medical marijuana use (Chronic) Arthritis of left glenohumeral joint (Chronic ~07/01/14) Leg edema (Acute) Osteopenia (Acute 12/14/11) Osteoporosis wrist, osteopenia hip, normal bone density of spine 2017 osteopenia 2011 Medical History Acute cystitis Acute UTI Acute UTI Adhesive capsulitis of left shoulder Injected 12/11/2018 Anemia CHF exacerbation Hx of bacterial pneumonia Hyperlipidemia Neuropathy Pneumonia Sessile colonic polyp (03/14/18) Smoker Spinal stenosis Unintentional weight loss Weakness Surgical History Anterior Fusion Cervical Spine C3-C5 (07/31/16) Jul 2016, [facility] Dr. Maritnez Arthroplasty of knee Per patient she has not had a TOTAL KNEE Breast, Lumpectomy Cervical spondylosis 11/03/20 C5-[address] Everett Cardoza Day 11/04/20 D/C'd home Colonoscopy - MAC (03/12/18) Colon,transverse,polyp,biopsy - fragment of sessile serrated adenoma. (Dr Neely) H/O cystoscopy (09/06/18) w/transurethral resection of bladder tumors-Dr Wiggins H/O laminectomy (~06/2021) APD-L3-L4 laminectomy, medial fa for decompression of stenosis, lateral disectomy [id number] Hemiarthroplasty (09/07/15) L shoulder Dr Luz History of hemiarthroplasty of left shoulder 09/07/2015 Repair of umbilical hernia Rotator Cuff Repair Status post shoulder hemiarthroplasty Tenotomy and debridement tendon L shoulder (10/25/17) Family History Father Essential hypertension Glaucoma Alzheimer's dementia Social History Smoking/Tobacco Use Status: Former Tobacco Use Smoking risk assessment performed?: Yes Alcohol Intake: former Substance use type: marijuana Details: marijuana: uses qd Household members: none Housing: house Number of Children: 0 Pets and animals: Yes Pets and animals: cat(s) and dog(s) Current gender identity: female What type of physical activity do you participate in: none and other Details: PT 2 xweek Frequency: 1-2 times per week Seatbelt use: always Drive intox or ride w/intox class a regional drivers: No Working smoke detector in home: Yes Fire extinguisher in home: Yes Carbon monox detector in home: Yes Do you feel safe at home: Yes Do you feel safe in your relationship?: Yes Exam <MILTON Harris - Last Filed: 10/03/22 06:30> Const General: cooperative, comfortable, no acute distress, well developed and ill appearing chronically Nutritional Appearance: average body habitus and well nourished Orientation: alert, awake and oriented x3 HENMT Head: normal to inspection Ears: hearing grossly normal bilaterally Mouth: moist mucous membranes Chest Chest: normal inspection of the chest, normal palpation of entire chest wall and no crepitus Resp Effort & Inspection: normal respiratory effort, able to speak in complete sentences and no respiratory distress Auscultation: clear to auscultation bilaterally, no rales, no rhonchi and no wheezes Cardio Rate: regular rate Rhythm: regular rhythm Heart Sounds: S1 normal and S2 normal GI Inspection: normal to inspection, no edema and non-distended Palpation: soft, no hepatosplenomegaly, not firm, no guarding, no masses, no pulsatile masses, not rigid, tender in the LLQ and in the RLQ (mild pain along lower abdomen) and No ascites Auscultation: normal bowel sounds Back/Spine/Pelvis Back: no CVA tenderness Thoracic/Lumbar Spine: thoracic and lumbar spine normal to inspection, No thoraco-lumbar spasm, No thoracic spinal tenderness and No lumbar spinal tenderness Skin General skin exam: no rashes or lesions noted Trauma: no lacerations or abrasions Neuro General: patient alert, patient awake and patient oriented x3 Cognition: normal cognition Speech: speech normal Extrem General: normal to inspection, capillary refill normal, no pedal edema and no calf tenderness Psych Appearance: grossly normal and well kempt Mental Status: mental status grossly normal Speech and Movement: speech and movement normal Course <MILTON Harris - Last Filed: 10/03/22 06:30> Vital Signs Vital signs: Vital Signs Temperature 36.6 C 09/24/22 14:16 Pulse 65 09/24/22 14:16 Respiratory Rate 28 H 09/24/22 14:16 Blood Pressure 122/72 09/24/22 14:16 Pulse Oximetry 100 09/24/22 14:16 Temperature 36.6 C 09/24/22 14:16 Temperature Source Oral 09/24/22 14:16 Pulse 65 09/24/22 14:16 Respiratory Rate 28 H 09/24/22 14:16 Respiratory Pattern Tachypnea 09/24/22 14:36 Blood Pressure 122/72 09/24/22 14:16 Pulse Oximetry 100 09/24/22 14:16 Oxygen Delivery Method Room Air 09/24/22 14:16 Oxygen Flow Rate 0 09/24/22 14:16 Pain Level 6 09/24/22 14:16 Comment 09/24/22 14:16 Sign Out <MILTON Harris - Last Filed: 10/03/22 06:30> Sign Out Data: Sign Out Comment: Care transition to Alberto Beltran NP with labs and imaging pending. Patient here for weakness, fatigue, pain radiating from chest and abdomen into her back. Last updated by Delmis Weinstein PA at 09/24/22 16:19
[2022-09-24 15:23] LABS: Abs Immature Grans 0.03 10^3/uL (0.0-0.06); Absolute Basophil Count 0.03 10^3/uL (0.0-0.2); Absolute Eosinophil Count 0.02 10^3/uL (0.0-0.7); Basophils % 0.3; Eosinophils % 0.2; HCT 35.3 % (36.0-46.0); HGB 12.2 g/dL (11.2-15.7); Immature Grans % 0.3; Lymphocytes % 16.9; MCH 30.3 pg (27.0-33.0); MCHC 34.6 % (32.0-36.0); MCV 88 fL (80-95); MPV 11.9 fL (8.0-11.0); Monocytes % 8.4; Neutrophils % 73.9; Platelet Count 189 10^3/uL (130-400); RBC 4.02 10^6/uL (3.93-5.22); RDW 13.9 % (11.7-14.6); WBC 9.48 10^3/uL (4.4-10.8)
[2022-09-24] MEDS: LORazepam 2 MG/ML VIAL 0.5 MG IVP (15:51)
[2022-09-24 15:58] LABS: ALT 23 U/L (14-59); AST 32 U/L (15-37); Alkaline Phosphatase 77 U/L (46-116); Anion Gap 14.4 mmol/L (3-11); BUN 31 mg/dL (7-18); Bilirubin, Total 0.9 mg/dL (0.2-1.0); CO2 23.6 mmol/L (21.0-32.0); CREATININE 0.9 mg/dL (0.55-1.02); Calcium 9.7 mg/dL (8.5-10.1); Chloride 99 mmol/L (98-107); Estimated GFR 67.92 (mL/min/1.73m2); Glucose 103 mg/dL (74-106); Magnesium 1.5 mg/dL (1.8-2.4); Potassium 3.4 mmol/L (3.5-5.1); Sodium 137 mmol/L (136-145); Total Protein 7.2 g/dL (6.4-8.2); Troponin I < 50 ng/L (<or=60)
[2022-09-24] MEDS: Potassium Chloride 10 MEQ TABCR PO (16:29)
[2022-09-24] MEDS: Magnesium Oxide 400 MG TAB PO (16:29)
[2022-09-24 16:32] LABS: Bilirubin Negative (Negative); Blood Moderate (Negative); Clarity Cloudy (Clear); Glucose Negative (Negative); Ketones 40 mg/dL (Negative); Leukocyte Esterase Large (Negative); Nitrite Positive (Negative); Specific Gravity 1.025 (1.005-1.025)
[2022-09-24] MEDS: Normal Saline - Diluent 50 ML VIAL IJ (16:32)
[2022-09-24] MEDS: Omnipaque 350 MG/ML 100 ML BTL 70 ML IJ (16:33)
[2022-09-24 16:40] LABS: Bacteria Many HPF (Negative); C & S Indicated? Yes; Casts Negative LPF (Negative); Crystals Negative HPF (Negative); Epithelial Cells Few HPF (Negative); Mucus Trace (Negative); WBC >50 HPF (0-5)
[2022-09-24] MEDS: Normal Saline 500 ML IV ×2 (16:50→19:57)
--- NOTE | 2022-09-24 17:06 | DI.VRAD_ITS ---
PROCEDURE INFORMATION: Exam: CTA Chest With Contrast CTA Abdomen and Pelvis With Contrast Exam date and time: 09/24/2022 4:31 PM Age: 72 years old Clinical indication: Other: Pain from chest/abdomen radiating into back TECHNIQUE: Imaging protocol: Computed tomographic angiography of the chest with contrast. Computed tomographic angiography of the abdomen and pelvis with contrast. 3D rendering (Not supervised by radiologist): MIP and/or 3D reconstructed images were created by the technologist. Radiation optimization: All CT scans at this facility use at least one of these dose optimization techniques: automated exposure control; mA and/or kV adjustment per patient size (includes targeted exams where dose is matched to clinical indication); or iterative reconstruction. Contrast material: OMNIPAQUE 350; Contrast volume: 70 ml; Contrast route: INTRAVENOUS (IV); COMPARISON: CT CHEST PE CTA 07/20/2022 12:21 PM FINDINGS: VASCULATURE: Pulmonary arteries: Pulmonary artery is well opacified. No embolism. Aorta: Thoracic aorta is unremarkable in course and caliber. There is atherosclerotic calcium. No dissection. No aneurysm. Abdominal aorta with atherosclerotic calcium. No aneurysmal change. No occlusion. Celiac trunk and mesenteric arteries: Celiac artery is patent. Superior mesenteric artery with non osteal eccentric atheromatous material causing a 50% diameter moderate stenosis. There is also atherosclerotic calcium within the smaller branch vessels of the SMA with areas of [id number] stenotic change. Renal arteries: Right renal artery is patent. No significant stenosis. Left renal artery with atherosclerotic calcium at the origin and moderate stenosis at approximately 60% diameter. Right iliac arteries: Right common iliac artery atherosclerotic changes and moderate stenosis at 50% diameter. Left iliac arteries: Left common iliac artery atherosclerotic changes with moderate stenosis at approximally 50% diameter. CHEST: Lungs: Bilateral moderate emphysematous lung changes and bronchiectasis consistent with COPD. No acute lung infiltrates or edema. Left lower lobe lateral basilar 5 x 6 mm noncalcified nodule. Additional left lower lobe mid lateral segment subpleural 3 mm noncalcified nodule. No significant change since 07/20/2022. Pleural spaces: No pleural effusion. Heart: Normal heart size. No pericardial effusion. Moderate to severe coronary artery atherosclerotic calcium. ABDOMEN AND PELVIS: Liver: The liver is normal in size, contour and overall attenuation. A small enhancing focus is seen in the inferolateral right hepatic lobe measuring 8 mm. This small blush of contrast is likely a benign focus. Ultrasound follow-up in correlation may be helpful. See series 4, image 60. Possibly a rapidly filling hemangioma or other vascular anomaly. No distinct masslike change. Not definable by earlier CT from 07/20/2022. Gallbladder and bile ducts: No gallstones or acute biliary tract findings. Pancreas: Mild pancreatic atrophy. No acute changes. Spleen: The spleen is normal in size, contour and attenuation. Adrenal glands: Bilateral adrenal gland fullness without kandi nodularity. Possibility of adrenal hyperplasia. Kidneys and ureters: Kidneys are unremarkable bilaterally. No obstructive uropathy. No calculi. Subcentimeter right lateral and right superior cortical cysts. No further imaging follow-up recommended based on MIPS criteria. Stomach and bowel: Gastric contour is unremarkable. There is a small hiatal hernia without acute features. Small bowel loops are unremarkable. Large bowel without acute changes. Appendix: Non inflamed appendix on series 4, images 69-81. Intraperitoneal space: No free fluid. No free air. Nonspecific minor free fluid in the right-side of the pelvic cul-de-sac. This has simple appearance based on attenuation. Urinary bladder: Urinary bladder is poorly distended. Unremarkable as visualized. Reproductive: Uterine atrophic changes and features suggesting calcifying degenerative fibroids. Follow-up with ultrasound may be warranted. Lymph nodes: Unremarkable. No enlarged lymph nodes. Bones/joints: Degenerative thoracic spine changes. Previous multilevel low cervical spine fusion. Degenerative lumbar spine disease. Soft tissues: Unremarkable. Other findings: Bilateral common femoral arteries and proximal superficial femoral arteries with significant atherosclerotic changes and stenotic lesions of moderate to severe appearance. IMPRESSION: 1. No aortic dissection or aneurysmal change. 2. No pulmonary arterial embolism. 3. Superior mesenteric artery non osteal moderate stenosis. 4. Left renal artery origin moderate stenosis. 5. Bilateral iliac arteries with moderate proximal stenosis. 6. Emphysematous lung changes. Nonspecific left lower lobe nodules.For patients at low risk (minimal or absent history of smoking and of other known risk factors), recommend CT Chest at 3-6 months, then consider CT Chest at 18-24 months. For patients at high risk (history of smoking or of other known risk factors), recommend CT Chest at 3-6 months, then CT Chest at 18-24 months. (Reference: Joe) 7. Nonspecific focal enhancement in the lateral mid right hepatic lobe measuring 8 mm. Recommend ultrasound follow-up. This could represent an early or rapidly filling hemangioma or other vascular anomaly. Can not exclude a small enhancing mass. 8. Uterine atrophy and appearance suggesting degenerative fibroids. Ultrasound follow-up is suggested. 9. Bilateral adrenal gland fullness which could represent hyperplasia. No distinct nodules. 10. Degenerative thoracic and lumbar spine changes. REFERENCES: Joe Ruby, et al. Guidelines for Management of Incidental Pulmonary Nodules Detected on CT Images: From the Fleischner Society 2017. Radiology. 2017;284(1):228-243. Dictated and Authenticated by: Wes Sousa MD. Ordering:PEGGY Benites MD
[2022-09-24 18:55] LABS: Troponin I < 50 ng/L (<or=60)
[2022-09-24] MEDS: Fosfomycin Tromethamine 3 GM PACKET PO (19:43)
--- NOTE | 2022-09-24 23:23 | NUR.NOTE ---
Referral faxed to [facility] Chanel Nelson to f/u in 3 days for UTI, general malaise.Nursing Note:
--- NOTE | 2022-09-27 07:40 | NUR.NOTE ---
Nursing Note: Accessed chart to look up whether or not on antibiotic.
== END 2022-09-24 23:18 | disposition home or self-care (01) ==
PROVIDERS: Physician Assistant; Emergency Provider Nurse Practitioner Family; PCP Nurse Practitioner Adult Health
DX: N39.0 Urinary tract infection, site not specified (principal); I50.9 Heart failure, unspecified; E87.6 Hypokalemia; I77.1 Stricture of artery
CPT/HCPCS: 36415; 71275; 80053; 87077; 93005; 96361; 96365; 96375; 99285; 74174; 81003; 81015; 83735; 84484; 85025; 87086; 87186; 93010; J2060; J2405; J3490

== ENCOUNTER 2022-09-25 14:57 | Emergency (ER) | payer MEDICARE, OTHER, SELFPAY ==
[2022-09-25] VITALS (24 sets, daily range): BP systolic 120–164; BP diastolic 48–88; PULSE 54–74; RESP 8–33; TEMP 36.6–36.8; O2SAT 93–100
--- NOTE | 2022-09-25 15:45 | RT.EKG_ITS ---
APPROVED REPORT Exam: Resting ECG Reason for Exam: weakness Patient Location: E HR:71 bpm ECG Measurements Heart Rate 71 AXIS OK 138 P 82 QRSd 87 QRS 62 QT 416 T 42 QTc 453 Conclusion Sinus rhythm...normal P axis, V-rate 60- 99
[2022-09-25 16:27] LABS: Lactate 1.2 mmol/L (0.6-1.4)
[2022-09-25 16:29] LABS: Abs Immature Grans 0.04 10^3/uL (0.0-0.06); Absolute Basophil Count 0.04 10^3/uL (0.0-0.2); Absolute Eosinophil Count 0.07 10^3/uL (0.0-0.7); Absolute Lymphocyte Count 1.68 10^3/uL (1.2-3.4); Absolute Monocyte Count 0.92 10^3/uL (0.1-0.8); Absolute Neutrophil Count 7.41 10^3/uL (1.2-6.7); Basophils % 0.4; Eosinophils % 0.7; HCT 37.9 % (36.0-46.0); HGB 12.6 g/dL (11.2-15.7); Immature Grans % 0.4; Lymphocytes % 16.5; MCH 30.2 pg (27.0-33.0); MCHC 33.2 % (32.0-36.0); MCV 91 fL (80-95); MPV 11.2 fL (8.0-11.0); Monocytes % 9.1; Neutrophils % 72.9; Platelet Count 187 10^3/uL (130-400); RBC 4.17 10^6/uL (3.93-5.22); RDW 13.9 % (11.7-14.6); RDW-SD 46.8 fL; WBC 10.16 10^3/uL (4.4-10.8)
[2022-09-25 16:44] LABS: ALT 26 U/L (14-59); AST 34 U/L (15-37); Albumin 4.4 g/dL (3.4-5.0); Alkaline Phosphatase 82 U/L (46-116); BUN 27 mg/dL (7-18); Bilirubin, Total 1.1 mg/dL (0.2-1.0); Calcium 9.4 mg/dL (8.5-10.1); Chloride 104 mmol/L (98-107); Estimated GFR 59.86 (mL/min/1.73m2); Glucose 90 mg/dL (74-106); Lipase 129 U/L (73-393); Magnesium 1.8 mg/dL (1.8-2.4); Potassium 3.4 mmol/L (3.5-5.1); Sodium 140 mmol/L (136-145); Total Protein 7.8 g/dL (6.4-8.2)
[2022-09-25] MEDS: Lactated Ringers 1,000 ML 1000 ML IV (16:50)
[2022-09-25] MEDS: oxyCODONE 5 MG TAB PO (17:11)
[2022-09-25 17:27] LABS: Source Nasal/Nares
--- NOTE | 2022-09-25 17:37 | W.ED.GENAD ---
Discharge Plan Disposition Patient Disposition: Home Condition: Stable Discharge Details Clinical Impression: Urinary tract infection, Back pain Primary Care Provider: Chanel Nelson ED Provider: Юлия Puente Home Meds and New Rx's Prescriptions: No Action acetaminophen [Tylenol Arthritis Pain] 650 mg tablet extended release 650 mg PO TID PRN ketoconazole 2 % cream 1 applic topical DAILY Qty: 120 6RF Rx Instructions: Apply to toenails once daily duloxetine 60 mg capsule,delayed release(DR/EC) 60 mg PO DAILY Qty: 90 3RF potassium chloride 10 mEq capsule, extended release 10 meq .ROUTE DAILY Rx Instructions: 10 mEq daily; pregabalin 150 mg capsule 150 mg PO BID Qty: 180 1RF oxycodone 5 mg tablet 2.5 mg PO Q6H MDD 2 pills daily PRN (Reason: pain) Qty: 30 0RF mirtazapine 30 mg tablet 15 mg PO QHS Qty: 90 0RF Rx Instructions: Dose increase 05/15/24 simethicone [Gas Relief (simethicone)] 80 mg tablet,chewable 80 mg PO TID-QID PRN (Reason: abdominal distention) Qty: 40 0RF Rx Instructions: Bloating, bubbling/gas in abdomen ondansetron 4 mg tablet,disintegrating 4 mg PO DAILY PRN (Reason: nausea and vomiting) Qty: 40 12RF pantoprazole 20 mg tablet,delayed release (DR/EC) See Rx Instructions .ROUTE .COMPLEX Qty: 180 3RF Dose Instruction: TAKE 1 TABLET TWICE DAILY FOR REFLUX Rx Instructions: TAKE 1 TABLET TWICE DAILY FOR REFLUX magnesium oxide 400 mg (241.3 mg magnesium) tablet See Rx Instructions .ROUTE .COMPLEX Qty: 90 3RF Dose Instruction: TAKE 1 TABLET EVERY DAY Rx Instructions: TAKE 1 TABLET EVERY DAY pravastatin 40 mg tablet See Rx Instructions .ROUTE .COMPLEX Qty: 90 3RF Dose Instruction: TAKE 1 TABLET EVERY DAY Rx Instructions: TAKE 1 TABLET EVERY DAY celecoxib 200 mg capsule See Rx Instructions .ROUTE .COMPLEX Qty: 90 3RF Dose Instruction: TAKE 1 CAPSULE EVERY DAY IN THE MORNING WITH FOOD FOR CHRONIC SPINE PAIN (CERVICAL AND LUMBAR) Rx Instructions: TAKE 1 CAPSULE EVERY DAY IN THE MORNING WITH FOOD FOR CHRONIC SPINE PAIN (CERVICAL AND LUMBAR) spironolactone 25 mg tablet See Rx Instructions .ROUTE .COMPLEX Qty: 90 3RF Dose Instruction: TAKE 1 TABLET EVERY DAY FOR MAGNESIUM WASTING Rx Instructions: TAKE 1 TABLET EVERY DAY FOR MAGNESIUM WASTING cetirizine 10 mg tablet See Rx Instructions .ROUTE .COMPLEX Qty: 180 3RF Dose Instruction: TAKE 1 TABLET ONE TO TWO TIMES PER DAY. TAKE LOWEST EFFECTIVE DOSE Rx Instructions: TAKE 1 TABLET ONE TO TWO TIMES PER DAY. TAKE LOWEST EFFECTIVE DOSE amlodipine 2.5 mg tablet See Rx Instructions .ROUTE .COMPLEX Qty: 90 3RF Dose Instruction: TAKE 1 TABLET EVERY DAY Rx Instructions: TAKE 1 TABLET EVERY DAY Discharge Instructions Instructions: Urinary Tract Infection in Women (ED), Back Pain (ED) Additional Instructions: Oxycodone sparingly, this medication is addictive Take Tylenol 650 mg every 4-6 hours Follow-up with your primary care physician on Monday and return earlier should you have new or worsening complaints Use walker with ambulation Referrals: Chanel Nelson NP [Primary Care Provider] - Discharge Data Discharge Date/Time-TO BE ENTERED AT DEPARTURE: 09/25/22 19:32 HPI General Date/Time Provider Initiated Documentation: 09/25/22 15:18. HPI Narrative: This 72-year-old female presents for reassessment secondary to back pain. Patient states that she was treated for urinary tract infection and secondary to persistent pain presents today. She denies any strength or sensation changes to her extremities, she denies any changes in bowel or bladder. She was able to ambulate around her apartment today with a walker. She denies any fever or chills. Denies chest pain or shortness of breath. Denies current numbness. Related Data Home Medications ?Medication ?Instructions ?Recorded ?Confirmed acetaminophen 650 mg 650 mg PO TID PRN 02/08/23 07/29/24 tablet,extended release (Tylenol Arthritis Pain) ketoconazole 2 % topical cream 1 applic topical DAILY #120 grams 11/14/23 07/29/24 pantoprazole 20 mg tablet,delayed See Rx Instructions .Route 01/31/24 07/29/24 release .COMPLEX #180 tabs duloxetine 60 mg capsule,delayed 60 mg PO DAILY #90 caps 02/20/24 07/29/24 release magnesium oxide 400 mg (241.3 mg See Rx Instructions .Route 03/30/24 07/29/24 magnesium) tablet .COMPLEX #90 tabs pravastatin 40 mg tablet See Rx Instructions .Route 04/10/24 07/29/24 .COMPLEX #90 tabs celecoxib 200 mg capsule See Rx Instructions .Route 05/09/24 07/29/24 .COMPLEX #90 caps cetirizine 10 mg tablet See Rx Instructions .Route 05/29/24 07/29/24 .COMPLEX #180 tabs spironolactone 25 mg tablet See Rx Instructions .Route 05/29/24 07/29/24 .COMPLEX #90 tabs amlodipine 2.5 mg tablet See Rx Instructions .Route 06/13/24 07/29/24 .COMPLEX #90 tabs mirtazapine 30 mg tablet 15 mg (1/2 x 30 mg) PO QHS #90 tabs 07/02/24 07/29/24 oxycodone 5 mg tablet 2.5 mg (1/2 x 5 mg) PO Q6H PRN 07/02/24 07/29/24 pain #30 tabs potassium chloride 10 mEq 10 meq .Route DAILY 07/02/24 07/29/24 capsule,extended release pregabalin 150 mg capsule 150 mg PO BID #180 caps 07/02/24 07/29/24 simethicone 80 mg chewable tablet 80 mg PO TID-QID PRN abdominal 07/03/24 07/29/24 (Gas Relief (simethicone)) distention #40 tabs ondansetron 4 mg disintegrating 4 mg PO DAILY PRN nausea and 07/29/24 07/29/24 tablet vomiting #40 tabs Previous Rx's ?Medication ?Instructions ?Recorded ketoconazole 2 % topical cream 1 applic topical DAILY #120 grams 11/14/23 pantoprazole 20 mg tablet,delayed See Rx Instructions .Route 01/31/24 release .COMPLEX #180 tabs duloxetine 60 mg capsule,delayed 60 mg PO DAILY #90 caps 02/20/24 release magnesium oxide 400 mg (241.3 mg See Rx Instructions .Route 03/30/24 magnesium) tablet .COMPLEX #90 tabs pravastatin 40 mg tablet See Rx Instructions .Route 04/10/24 .COMPLEX #90 tabs celecoxib 200 mg capsule See Rx Instructions .Route 05/09/24 .COMPLEX #90 caps cetirizine 10 mg tablet See Rx Instructions .Route 05/29/24 .COMPLEX #180 tabs spironolactone 25 mg tablet See Rx Instructions .Route 05/29/24 .COMPLEX #90 tabs amlodipine 2.5 mg tablet See Rx Instructions .Route 06/13/24 .COMPLEX #90 tabs mirtazapine 30 mg tablet 15 mg (1/2 x 30 mg) PO QHS #90 tabs 07/02/24 oxycodone 5 mg tablet 2.5 mg (1/2 x 5 mg) PO Q6H PRN 07/02/24 pain #30 tabs pregabalin 150 mg capsule 150 mg PO BID #180 caps 07/02/24 simethicone 80 mg chewable tablet 80 mg PO TID-QID PRN abdominal 07/03/24 (Gas Relief (simethicone)) distention #40 tabs ondansetron 4 mg disintegrating 4 mg PO DAILY PRN nausea and 07/29/24 tablet vomiting #40 tabs Allergies Allergy/AdvReac Type Severity Reaction Status Date / Time ciprofloxacin Allergy Other (See Verified 07/29/24 14:10 Comment) codeine AdvReac Intermediate Nausea Verified 07/29/24 14:10 nitrofurantoin AdvReac Intermediate bloating, Verified 07/29/24 14:10 weakness hydrochlorothiazide AdvReac Mild hypomagnese Verified 07/29/24 14:10 pop narcotics AdvReac Intermediate Nausea, Uncoded 07/29/24 14:10 vomiting General Stated Complaint: GenMedical ROSENDO: 3 Review of Systems All systems reviewed & are unremarkable except as noted in HPI and below Exam Const General: cooperative, comfortable and no acute distress Resp Effort & Inspection: normal respiratory effort Auscultation: clear to auscultation bilaterally Cardio Rate: regular rate Rhythm: regular rhythm GI Inspection: normal to inspection Other: mild lower tenderness Skin General skin exam: no rashes or lesions noted Neuro General: patient alert and patient oriented x3 Cranial Nerves: CN's II-XI intact bilaterally and tongue midline Cognition: normal cognition Speech: speech normal Extrem Other: distal pulses intact Course Vital Signs Vital signs: Vital Signs Temperature 36.8 C 09/25/22 15:04 Pulse 59 L 09/25/22 15:04 Respiratory Rate 8 L 09/25/22 15:04 Blood Pressure 131/59 L 09/25/22 15:04 Pulse Oximetry 100 09/25/22 15:04 Temperature 36.8 C 09/25/22 15:04 Temperature Source Temporal Artery Scan 09/25/22 15:04 Pulse 58 L 09/25/22 17:00 Pulse 66 09/25/22 17:10 Respiratory Rate 22 09/25/22 17:10 Respiratory Effort 09/25/22 17:05 Blood Pressure 151/62 H 09/25/22 17:00 Blood Pressure Mean 85 09/25/22 17:00 Blood Pressure Position Sitting 09/25/22 15:04 Pulse Oximetry 98 09/25/22 17:10 Oxygen Delivery Method Room Air 09/25/22 15:04 Oxygen Flow Rate 0 09/25/22 15:04 Comment 09/25/22 15:04 Lab/Test Results Lab/Test Results: 09/25/22 16:50 Blood Blood Culture - Pending 09/25/22 16:05 Blood Blood Culture - Pending Laboratory Tests Range/Units 09/25/22 09/25/22 09/25/22 16:05 16:05 16:05 WBC (4.4-10.8) 10^3/uL 10.16 RBC (3.93-5.22) 10^6/uL 4.17 Hgb (11.2-15.7) g/dL 12.6 Hct (36.0-46.0) % 37.9 MCV (80-95) fL 91 MCH (27.0-33.0) pg 30.2 MCHC (32.0-36.0) % 33.2 RDW (11.7-14.6) % 13.9 Plt Count (130-400) 10^3/uL 187 MPV (8.0-11.0) fL 11.2 H Immature Gran % 0.4 Neutrophils % 72.9 Lymphocytes % 16.5 Monocytes % 9.1 Eosinophils % 0.7 Basophils % 0.4 Nucleated RBC % (0.0-0.3) % 0.0 Absolute Neutrophils (1.2-6.7) 10^3/uL 7.41 H Absolute Lymphocytes (1.2-3.4) 10^3/uL 1.68 Absolute Monocytes (0.1-0.8) 10^3/uL 0.92 H Absolute Eosinophils (0.0-0.7) 10^3/uL 0.07 Absolute Basophils (0.0-0.2) 10^3/uL 0.04 VBG Lactate (0.6-1.4) mmol/L 1.2 Sodium (136-145) mmol/L 140 Potassium (3.5-5.1) mmol/L 3.4 L Chloride (98-107) mmol/L 104 Carbon Dioxide (21.0-32.0) mmol/L 25.0 Anion Gap (3-11) mmol/L 11.0 BUN (7-18) mg/dL 27 H Creatinine (0.55-1.02) mg/dL 1.0 Est GFR (CKD-EPI 2020) (mL/min/1.73m2) 59.86 Glucose (74-106) mg/dL 90 Calcium (8.5-10.1) mg/dL 9.4 Magnesium (1.8-2.4) mg/dL 1.8 Total Bilirubin (0.2-1.0) mg/dL 1.1 H AST (15-37) U/L 34 ALT (14-59) U/L 26 Alkaline Phosphatase (46-116) U/L 82 Total Protein (6.4-8.2) g/dL 7.8 Albumin (3.4-5.0) g/dL 4.4 Lipase (73-393) U/L 129 COVID-19 Source Range/Units 09/25/22 17:16 WBC (4.4-10.8) 10^3/uL RBC (3.93-5.22) 10^6/uL Hgb (11.2-15.7) g/dL Hct (36.0-46.0) % MCV (80-95) fL MCH (27.0-33.0) pg MCHC (32.0-36.0) % RDW (11.7-14.6) % Plt Count (130-400) 10^3/uL MPV (8.0-11.0) fL Immature Gran % Neutrophils % Lymphocytes % Monocytes % Eosinophils % Basophils % Nucleated RBC % (0.0-0.3) % Absolute Neutrophils (1.2-6.7) 10^3/uL Absolute Lymphocytes (1.2-3.4) 10^3/uL Absolute Monocytes (0.1-0.8) 10^3/uL Absolute Eosinophils (0.0-0.7) 10^3/uL Absolute Basophils (0.0-0.2) 10^3/uL VBG Lactate (0.6-1.4) mmol/L Sodium (136-145) mmol/L Potassium (3.5-5.1) mmol/L Chloride (98-107) mmol/L Carbon Dioxide (21.0-32.0) mmol/L Anion Gap (3-11) mmol/L BUN (7-18) mg/dL Creatinine (0.55-1.02) mg/dL Est GFR (CKD-EPI 2020) (mL/min/1.73m2) Glucose (74-106) mg/dL Calcium (8.5-10.1) mg/dL Magnesium (1.8-2.4) mg/dL Total Bilirubin (0.2-1.0) mg/dL AST (15-37) U/L ALT (14-59) U/L Alkaline Phosphatase (46-116) U/L Total Protein (6.4-8.2) g/dL Albumin (3.4-5.0) g/dL Lipase (73-393) U/L COVID-19 Source Nasal/Nares Medical Decision Making This 72-year-old female presents for reassessment with back pain with recent diagnosis yesterday of urinary tract infection given a single dose fosfomycin She is afebrile and nontoxic with stable vitals, and her repeat labs are reassuring including troponin and EKG She had a CT chest abdomen and pelvis yesterday with a did not show evidence of acute pathology, this was reviewed She is ambulatory with steady gait with her walker at her baseline and does live independently, I did give her a dose of opiate analgesia which she tolerated well and was ambulatory thereafter She request to be admitted to the hospital, I see no clear reason to admit this patient at this time She has a repeat urine culture pending Sensitivities were pending from the previous day She will need close outpatient reassessment, return precautions reviewed Able to eat and drink without difficulty Repeat diagnostic labs do not show evidence of acute abnormality, these were all reviewed with patient Discharged home in stable condition with stable vitals Medical Records Medical records reviewed: Yes I reviewed the patient's medical records. Lab Data Lab results reviewed: Yes I reviewed the patient's lab results. PFSH All Active Problems (Updated 07/01/24 @ 17:16 by Mabel Morgan MD) Advanced care planning/counseling discussion (Acute) Palliative care encounter (Acute) Weight loss (Acute) PVD (peripheral vascular disease) (Chronic) Pain in both feet (Acute) Onychomycosis (Acute) High risk for fracture due to osteoporosis by DEXA scan (Acute ~03/2023) RX Fosamax Poor manual dexterity (Acute) Lung nodule seen on imaging study (Acute ~10/2022) Annual LDCT Impaired gait and mobility (Acute) Chronic pain (Chronic) Due to OA shoulders, knees, Spinal stenosis. 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/03/16 Cervical myelopathy (Chronic) Spinal stenosis, lumbar region without neurogenic claudication (Acute 12/14/11) Osteoarthritis of spine with radiculopathy, cervical region (Acute 09/05/11) Sacroiliac joint dysfunction of right side (Acute) Spinal stenosis of lumbar region with radiculopathy (Acute) 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 Dr Velazco, [facility] [place] Neurology Essential hypertension (Acute 02/26/13) [place] cardiac risk >20% in next 10 years (Chronic) 2020: 32% Magnesium-losing nephropathy (Chronic) very mild; tx spironolactone GERD (gastroesophageal reflux disease) (Chronic) Depression (Chronic 07/01/14) Medical marijuana use (Chronic) Arthritis of left glenohumeral joint (Chronic ~07/01/14) Medical History Abnormal weight loss Acute cystitis Acute UTI Acute UTI Adhesive capsulitis of left shoulder Injected 12/11/2018 Anemia CHF exacerbation Delayed gastric emptying mild Hx of bacterial pneumonia Hyperlipidemia Leg edema Neuropathy Osteopenia (12/14/11) Osteoporosis wrist, osteopenia hip, normal bone density of spine 2017 osteopenia 2011 Pneumonia Sessile colonic polyp (03/14/18) Smoker Spinal stenosis Unintentional weight loss Urothelial carcinoma of bladder (~2016) [facility] U[facility] Weakness Surgical History Anterior Fusion Cervical Spine C3-C5 (07/31/16) Jul 2016, [facility] [place] Dr. Martinez Arthroplasty of knee Per patient she has not had a TOTAL KNEE Breast, Lumpectomy Cervical spondylosis 11/03/20 C5-[address] Everett Cardoza 11/04/20 D/C'd home Colonoscopy - MAC (03/12/18) Colon,transverse,polyp,biopsy - fragment of sessile serrated adenoma. (Dr Neely) H/O cystoscopy (09/06/18) w/transurethral resection of bladder tumors-Dr Wiggins H/O laminectomy (~06/2021) APD-L3-L4 laminectomy, medial fa for decompression of stenosis, lateral disectomy [id number] Hemiarthroplasty (09/07/15) L shoulder Dr Luz History of hemiarthroplasty of left shoulder 09/07/2015 Repair of umbilical hernia Rotator Cuff Repair Status post shoulder hemiarthroplasty Tenotomy and debridement tendon L shoulder (10/25/17) Family History Father Essential hypertension Glaucoma Alzheimer's dementia Social History Smoking/Tobacco Use Status: Former Tobacco Use Smoking risk assessment performed?: Yes Alcohol Intake: former Substance use type: marijuana Details: marijuana: uses qd Last used Monday09/30/23 Household members: none Housing: house Number of Children: 0 Pets and animals: Yes Pets and animals: cat(s) and dog(s) Current gender identity: female What type of physical activity do you participate in: none and other Details: PT 2 xweek Frequency: 1-2 times per week Seatbelt use: always Drive intox or ride w/intox star route mail driver: No Working smoke detector in home: Yes Fire extinguisher in home: Yes Carbon monox detector in home: Yes Do you feel safe at home: Yes Do you feel safe in your relationship?: Yes
--- NOTE | 2022-09-25 17:45 | DI.RAD_ITS ---
Exam(s) XR CHEST 2V PA LATERAL EXAM: XR CHEST 2V PA LATERAL CLINICAL HISTORY: shortness of breath TECHNIQUE: 2D digital imaging was performed. COMPARISON: CR XR PORTABLE CHEST AP from 07/20/2022 FINDINGS: HEART: Normal size. Aorta: Not dilated. PULMONARY VASCULATURE: Normal. LUNGS: Clear. PLEURAL SPACE: No pleural effusion or pneumothorax. BONE:Left shoulder prosthesis. Hardware lower cervical spine. IMPRESSION: No acute abnormality. DATA REPOSITORY: RADIATION DOSE DELIVERED:
[2022-09-25 18:00] LABS: COVID-19 PCR Negative (Negative)
[2022-09-25 18:10] LABS: C Diff PCR Negative (Negative)
[2022-09-25 18:22] LABS: Bilirubin Negative (Negative); Blood Small (Negative); Clarity Sl Cloudy (Clear); Glucose Negative (Negative); Ketones 40 mg/dL (Negative); Leukocyte Esterase Moderate (Negative); Nitrite Negative (Negative); Specific Gravity 1.025 (1.005-1.025); pH 6.5 (5-8)
[2022-09-25 18:24] LABS: Troponin I < 50 ng/L (<or=60)
[2022-09-25 18:32] LABS: Bacteria Moderate HPF (Negative); Crystals Negative HPF (Negative); Epithelial Cells Few HPF (Negative)
[2022-09-25 18:33] LABS: C & S Indicated? Yes; Casts Negative LPF (Negative); Mucus Negative (Negative)
--- NOTE | 2022-09-25 18:49 | DI.VRAD_ITS ---
PROCEDURE INFORMATION: Exam: XR Chest Exam date and time: 09/25/2022 6:04 PM Age: 72 years old Clinical indication: Shortness of breath TECHNIQUE: Imaging protocol: Radiologic exam of the chest. Views: 2 views. COMPARISON: CT THORAX ABD/PEL CTA 09/24/2022 4:31 PM FINDINGS: Lungs: No acute infiltrates or edema. Pleural spaces: No pleural effusion. Heart/Mediastinum: Normal heart size. Bones/joints: Thoracic spine degenerative changes. Dextroscoliosis. Previous right shoulder rotator cuff reattachment. Previous left shoulder arthroplasty. Anterior low cervical spine fusion. IMPRESSION: 1. Clear lungs and pleural space. 2. Degenerative skeletal changes. Dictated and Authenticated by: Wes Sousa MD. Ordering:HONEY Redman MD
[2022-09-25] MEDS: Ondansetron O.D.T. 4 MG TABEF, 3 TABS/BTL PO (19:20)
== END 2022-09-25 19:32 | disposition home or self-care (01) ==
PROVIDERS: Emergency Provider Physician Assistant; PCP Nurse Practitioner Adult Health
DX: N39.0 Urinary tract infection, site not specified (principal); I50.9 Heart failure, unspecified; Z20.822 Contact with and (suspected) exposure to COVID-19
CPT/HCPCS: 36415; 80053; 83690; 87040; 87493; 87505; 87635; 93005; 96360; 99284; 71046; 81003; 81015; 83605; 83735; 84484; 85025; 87086; 93010

== ENCOUNTER 2022-10-19 13:05 | Outpatient (CLI) | payer MEDICARE, OTHER, SELFPAY ==
--- NOTE | 2022-10-19 06:00 | DI.RAD_ITS ---
Exam(s) XR PAIN CLINIC SACRIOILIAC 2V EXAM: XR PAIN CLINIC SACRIOILIAC 2V CLINICAL HISTORY: DX: Sacroiliac dysfunction. TECHNIQUE: Fluoroscopy was provided for the referring physician for guidance with performing pain cl inic injection procedure. COMPARISON: No exams were available for comparison FINDINGS: please see procedure note for details. Fluoro time: 13.8 seconds RADIATION DOSE DELIVERED: Ka,r=2.27 mGy
[2022-10-19 13:15] VITALS: BP 150/68; PULSE 83; RESP 20; TEMP 36.8; O2SAT 100
[2022-10-19] MEDS: methylPREDNISolone ACETATE 80 MG/ML VIAL IJ (14:00)
[2022-10-19] MEDS: Omnipaque 240 MG/ML 50 ML BTL IJ (14:00)
[2022-10-19 14:05] VITALS: BP 135/68; PULSE 73; RESP 16; O2SAT 99
--- NOTE | 2022-10-19 14:43 | PDOC.PAIN ---
Date of service: 10/19/22 Time of Service: 14:00 Pain Clinic Procedure Note Procedure Note Procedure Note: INTRA-ARTICULAR SI JOINT INJECTION Belén Velasquez has been referred to the [facility] for intra-articular SI joint injection. COMMENTS: She has done very well this this procedure in the past. Pre-procedure pain level was 6/10. Dx: Right sacroiliac joint dysfunction Patient was interviewed and the medical record reviewed. There were no medical, pharmacologic, radiographic or other structural contraindications to attempting fluoroscopically guided intra-articular SI joint injection. Risks and expected side effects as well as potential benefit of the procedure were reviewed and voiced concerns addressed. The printed consent form was signed and witnessed. Standard time-out procedure was performed. Patient was placed in the prone position on the fluoroscopy table and automated blood pressure cuff and pulse oximeter applied. The skin entry point for approaching the right SI joint was identified under the most advantageous fluoroscopic view and marked. Following thorough Chlorhexadine preparation of the skin and draping and 1% lidocaine infiltration of the skin entry point and subcutaneous tissues, a 22 gauge spinal needle was placed under fluoroscopic guidance into the right SI joint was identified under the most advantageous fluoroscopic view and marked. Intra-articular placement was confirmed by a clear arthrogram resulting from the injection of 0.25ml Omnipaque 240, 1ml 1% lidocaine, and 40mg Depomedrol were injected intra-articularily with an initial reproduction of a significant component of the usual pain. Vital signs were stable throughout the procedure and were as recorded in the docflowsheet by the nursing staff. If given, dosages of intravenous drugs for anxiolysis and analgesia were documented in MAR. Follow up plans and appointments were discussed with the patient. Post procedure instruction was given as documented in nursing documentation and having met discharge criteria, and was discharged from the [facility]. COMMENTS: Post-procedure pain VAS was 0/10. This procedure can be completed up to 3 times per 12 months if it is found to be helpful. Henry Montes DO, MPH [facility]-Pain Management [facility] CC: Chanel Nelson APRN
== END 2022-10-19 13:06 | disposition home or self-care (01) ==
LOC: PC 13:05
PROVIDERS: PCP Nurse Practitioner Adult Health; Visit Provider Preventive Medicine Occupational Medicine
DX: M53.3 Sacrococcygeal disorders, not elsewhere classified (principal); M54.50 Low back pain, unspecified
CPT/HCPCS: 27096; 72200; J1040; Q9967

== ENCOUNTER → 2022-10-21 12:44 | Outpatient (BNVA) | payer MEDICARE, OTHER, SELFPAY | PROVIDERS: PCP Nurse Practitioner Adult Health; Referring Provider Nurse Practitioner Adult Health; Visit Provider Urology | DX: Z08 Encounter for follow-up examination after completed treatment for malignant neoplasm (principal); Z85.51 Personal history of malignant neoplasm of bladder | CPT/HCPCS: 52000 ==

== ENCOUNTER → 2022-10-31 09:34 | Outpatient (BNVA) | payer MEDICARE, SELFPAY | PROVIDERS: PCP Nurse Practitioner Adult Health; Referring Provider Internal Medicine; Visit Provider Student in an Organized Health Care Education/Training Program | DX: G56.22 Lesion of ulnar nerve, left upper limb (principal); G62.9 Polyneuropathy, unspecified; R20.2 Paresthesia of skin | CPT/HCPCS: 99213 ==

== ENCOUNTER 2022-11-02 02:45 | Outpatient (CLI) | payer MEDICARE, SELFPAY ==
--- NOTE | 2022-11-02 | DI.MRI_ITS ---
Exam(s) MR LUMBAR SPINE WO/W EXAM: MR LUMBAR SPINE WO/W CLINICAL HISTORY: LUMBAR RADICULOPATHY, RIGHT M54.16 L3-4 LAMI RT L3-4 FAR LATERAL. TECHNIQUE: Multiplanar multisequence MRI of the Lumbar Spine was performed. CONTRAST MATERIAL: IV Contrast: 10 mL of Dotarem contrast administered. COMPARISON: MR MR LUMBAR SPINE WO from 01/17/[address] THORAX ABD/PEL CTA from 09/24/2022 FINDINGS: Bones: The last intervertebral disc space is designated the L5/S1 level for the numbering purpose of this examination. The vertebral body heights are well maintained. There is a mild anterolisthesis of L3 on L4. Degenerative endplate signal changes are seen particularly at L3-L4. Cord: The conus tip ends at the T12 level. It is of normal size and signal intensity. T12-L1: No disc herniations or bulges are present. No central spinal canal or neural foraminal stenos is. L1-2: No disc herniations or bulges are present. No central spinal canal or neural foraminal stenosis . L2-3: No disc herniations or bulges are present. No central spinal canal or neural foraminal stenosis . L3-4: There is a diffuse disc bulge. There is mild narrowing of the central spinal canal. There is marked bilateral neural foraminal stenosis. L4-5: There is a diffuse disc bulge. There are hypertrophic changes of the facets. No significant c entral spinal canal stenosis is seen. There is mild right and moderate left neural foraminal stenosi s. L5-S1: There is a mild diffuse disc bulge. Mild hypertrophic changes of the facets are seen. No sig nificant central spinal canal stenosis. No significant neural foraminal stenosis. Soft tissues: The visualized SI joints and sacrum are well maintained. The paraspinal soft tissues ar e unremarkable. There are tiny cysts again seen in the kidneys bilaterally. There is no evidence of suspicious enhancement. IMPRESSION: Multilevel degenerative changes seen in the lumbar spine. The findings are most marked at the L3-4 a nd L4-L5 levels resulting in central spinal canal and neural foraminal stenosis as described above. DATA REPOSITORY:
[2022-11-02] MEDS: Normal Saline Flush 10 ML SYR IVP (10:18)
== END 2022-11-02 03:05 ==
LOC: DI 02:45
PROVIDERS: PCP Nurse Practitioner Adult Health; Visit Provider Neurological Surgery
DX: M47.816 Spondylosis without myelopathy or radiculopathy, lumbar region (principal)
CPT/HCPCS: 72158

== ENCOUNTER 2022-11-07 00:05 | Outpatient (CLI) | payer MEDICARE, SELFPAY ==
--- NOTE | 2022-11-07 14:30 | DI.CTLCSR_ITS ---
Exam(s) CT CHEST LUNG CANCER SCREEN EXAM: CT CHEST LUNG CANCER SCREEN CLINICAL HISTORY: Screening for lung cancer,COMPARE TO 04/18/22,FORMER SMOKER, Z87.891 TECHNIQUE: Imaging Protocol: Axial computed tomography images with coronal and sagittal reformatted images were created and reviewed. Low dose screening protocol. COMPARISON: CT CHEST - LUNG CANCER SCREENING from 02/14/2017 CT CHEST - LUNG CANCER SCREENING from 05/22/[address] CHEST LUNG CANCER SCREEN from 07/12/[address] CHEST PE CTA from 07/20/2022 FINDINGS: Tracheobronchial tree: No bronchiectasis or mucus plugging.. Mediastinum and Amarilis: No dominant adenopathy or fluid collection. Pulmonary parenchyma: No consolidation or dominant measurable mass. Mild to moderate emphysematous ch anges. Lung Nodules: Stable since 2017 6 millimeter nodule lateral inferior left lower lobe. Stable tiny lunsford bpleural nodules. Pleura: No effusion. No pneumothorax. Heart: The heart is not dilated. Severe coronary artery calcifications are seen. Aorta: Thoracic aorta non-dilated.Moderate atherosclerotic calcification. Upper abdomen: Stable bilateral mild adrenal prominence. No focal visible mass. Bones: Severe degenerative changes and scoliosis. Soft Tissues: Unremarkable. IMPRESSION: Stable 6 millimeter nodule left lower lobe. Lung RADS Cat 2 - Benign Appearance / Behavior: Nodules with a very low likelihood of becoming a clin ically active cancer due to size or lack of growth Lung-RADS 1.0 CATEGORIES: Category 0 - Prior chest CT exam(s) being located for comparison. Category 1 - Annual screening in 12 months. No nodules or definitely benign nodules. Category 2 - Annual screening in 12 months. Benign appearance. Nodules with low likelihood of becomin g active cancer. Category 3 - 6-month follow-up. Probably benign. Short-term follow-up suggested. Nodules with low lik elihood of becoming active cancer. Category 4A - 3-month follow-up and CT/PET if >8 mm in size. Suspicious finding. Findings which requi re additional testing. Category 4B - Findings which require additional testing and tissue sampling. Category 4X - Category 3 or 4 nodules with additional features or imaging findings that increases the suspicion of malignancy. Modifier S- Potentially clinically significant findings (non lung cancer) RADIATION DOSE DELIVERED: 71.65mGy.cm Total DLP DATA REPOSITORY: All CT scans at this facility are submitted to the National Radiology Data Registry (NRDR) Dose Index Registry (DIR) with the [employer] (ACR). RADIATION OPTIMIZATION: All CT scans at this facility use at least one of these dose optimization te chniques: automated exposure control; mA and/or kV adjustment per patient size (includes targeted exa ms where dose is matched to clinical indication); or iterative reconstruction.
--- NOTE | 2022-11-07 15:05 | DI.MAMMO_ITS ---
Exam(s) MAMMO SCREENING EXAM: MAMMO SCREENING CLINICAL HISTORY: screening,Z12.39 TECHNIQUE: Mammograms were interpreted according to the usual protocol including computer analysis w [employer] CAD system, tomosynthesis and C-view imaging. COMPARISON: 2013 through 2020 FINDINGS: The breasts are composed of scattered fibroglandular densities, Breast Density category B. No suspicious masses or suspicious microcalcifications are seen. No skin thickening or abnormal axillary lymph nodes are seen. There has been no significant change from prior exams. IMPRESSION: BI-RADS Category 1, Negative mammogram Yearly screening mammography is recommended. Breast Density - Category B, scattered fibroglandular densities. A negative radiographic report should not delay biopsy if a dominant or clinically suspicious mass is present. Up to ten percent of cancers are not identified on mammography. A negative report may reinforce clinical impression. Adenosis and dense breasts may obscure an underlying neoplasm. False positive reports average 6 to 10%. Patient will receive a letter notifying them of these results.
== END 2022-11-07 00:25 ==
PROVIDERS: PCP Nurse Practitioner Adult Health; Visit Provider Nurse Practitioner Adult Health
DX: Z12.31 Encounter for screening mammogram for malignant neoplasm of breast (principal); Z12.2 Encounter for screening for malignant neoplasm of respiratory organs; Z87.891 Personal history of nicotine dependence; R91.1 Solitary pulmonary nodule
CPT/HCPCS: 71271; 77063; 77067

== ENCOUNTER 2022-11-30 12:30 | Emergency (ER) | payer MEDICARE, SELFPAY ==
--- NOTE | 2022-11-30 12:00 | RT.EKG_ITS ---
APPROVED REPORT Exam: Resting ECG Reason for Exam: near syncope Patient Location: E HR:66 bpm ECG Measurements Heart Rate 66 AXIS WV 149 P 69 QRSd 76 QRS 38 QT 396 T 26 QTc 416 Conclusion Sinus rhythm...normal P axis, V-rate 60- 99
[2022-11-30 12:05] VITALS: BP 126/62; PULSE 76; RESP 18; TEMP 36.8; O2SAT 97
--- NOTE | 2022-11-30 12:23 | ED.GENADUL_ITS ---
Discharge Plan Disposition Patient Disposition: Home Condition: Stable Discharge Details Clinical Impression: Pre-syncope, Vision changes Primary Care Provider: Chanel Nelson ED Provider: Chris Meyer [place] Meds and New Rx's Prescriptions: Continued lecithin 400 mg capsule 400 mg PO TID magnesium oxide 400 mg magnesium tablet 400 mg PO DAILY Qty: 90 3RF duloxetine 60 mg capsule,delayed release(DR/EC) 60 mg PO DAILY Qty: 90 3RF ondansetron 4 mg tablet,disintegrating 4 mg PO DAILY PRN (Reason: nausea and vomiting) Qty: 14 3RF spironolactone 25 mg tablet 25 mg PO DAILY Qty: 90 3RF potassium chloride 10 mEq capsule, extended release See Rx Instructions .ROUTE .COMPLEX Qty: 90 3RF Hold Instructions: Home Medication placed on hold at Doctor's office Dose Instruction: TAKE 1 CAPSULE EVERY DAY Rx Instructions: TAKE 1 CAPSULE EVERY DAY Calcium 600 with Vitamin D3 600 mg-10 mcg (400 unit) tablet,chewable 1 tab PO DIRECTED Women's Multivitamin Gummies 200 mcg tablet,chewable 1 tab PO DAILY vitamin B complex [B Complex-Vitamin B12] Tablet 1 tab PO DAILY celecoxib 200 mg capsule See Rx Instructions .ROUTE .COMPLEX Qty: 90 1RF Dose Instruction: TAKE 1 CAPSULE EVERY DAY IN THE MORNING WITH FOOD FOR CHRONIC SPINE PAIN (CERVICAL AND LUMBAR) Rx Instructions: TAKE 1 CAPSULE EVERY DAY IN THE MORNING WITH FOOD FOR CHRONIC SPINE PAIN (CERVICAL AND LUMBAR) pravastatin 40 mg tablet 40 mg PO DAILY Qty: 90 3RF pantoprazole 20 mg tablet,delayed release (DR/EC) See Rx Instructions .ROUTE .COMPLEX Qty: 180 0RF Dose Instruction: TAKE 1 TABLET TWICE DAILY FOR REFLUX Rx Instructions: TAKE 1 TABLET TWICE DAILY FOR REFLUX amlodipine 2.5 mg tablet See Rx Instructions .ROUTE .COMPLEX Qty: 90 3RF Dose Instruction: TAKE 1 TABLET EVERY DAY Rx Instructions: TAKE 1 TABLET EVERY DAY pregabalin 225 mg capsule 225 mg PO BID Qty: 180 3RF cetirizine 10 mg tablet 10 mg PO QD-BID Qty: 180 0RF Rx Instructions: Take lowest effective dose Discharge Instructions Instructions: Near Syncope (ED) Additional Instructions: follow up with your primary care provider within 1 week if you feel more ill, have worsening weakness or chest pain return to the emergency department Medical Decision Making 72 yo female with hx of peripheral neuropathy and uses a walker at baseline, htn, who comes in with ems with complaints of feeling like she was going to pass out. She states she woke up feeling well but then while at her pcp's office felt fatigued and lightheaded, states she saw flashing lights in her vision as if camera photos were being taken, and she felt her speech was slow. Denies loc, no chest pain or dyspnea, no fevers or chills. She arrives feeling well and feels at her baseline currently. She has clear speech, caox4, no drift, nih of 0 on exam on arrival. Clear lungs, no murmurs, soft nontender abdomen. Unclear etiology for her symptoms, seems unlikely cva/tia given reassuring neuro exam and no focal weakness. Will obtain mri however given reported slow speech during this episode. Will check cbc, cmp, ekg/troponin and reassess. labs and imaging show no acute findings from baseline. She feels well and has no symptoms now. Given lack of chest pain or dyspnea do not feel delta troponin indicated. She is ambulating at her baseline with a walker. She is stable for d/c and comfortable with this plan she will f/u with her pcp, return precautions given Differential Diagnosis Differential Diagnosis: anemia, orthostasis, tia Medical Records Medical records reviewed: Yes I reviewed the patient's medical records. Imaging Data Radiologic Study: Attestation: I personally reviewed and interpreted this imaging study as follows: Imaging: MRI Radiologist's impression: no acute findings Lab Data Lab results reviewed: Yes I reviewed the patient's lab results. ECG Data Attestation: I personally reviewed and interpreted this ECG (s) as follows: Prior ECG tracings: available for review Interpretation: sinus rhythm, rate of 66, pr 149, no acute ischemic changes HPI General Mode of arrival: EMS . Date/Time Provider Initiated Documentation: 11/30/22 12:35 . Limitations to Documentation: no limitations . Information obtained by: patient . History of Present Illness 72 year old F presents to the emergency department with the chief complaint of felt like she may pass out, described as moderate, Patient started experiencing this hour(s) (1) and it has been now resolved. No relieving factors improve symptom(s), No exacerbating factors reported . Patient notes denies chest pain, nausea/vomiting and shortness of breath. Patient did receive the following treatments prior to arrival, none Related Data Home Medications Medication Instructions Recorded Confirmed lecithin 400 mg capsule 400 mg PO TID 11/16/21 11/02/22 pravastatin 40 mg tablet 40 mg PO DAILY #90 tabs 04/13/22 11/02/22 magnesium oxide 400 mg PO DAILY #90 tabs 05/04/22 11/02/22 pantoprazole 20 mg tablet,delayed See Rx Instructions .Route 05/18/22 11/02/22 release .COMPLEX #180 tabs duloxetine 60 mg capsule,delayed 60 mg PO DAILY #90 caps 07/11/22 11/02/22 release ondansetron 4 mg disintegrating 4 mg PO DAILY PRN nausea and 07/27/22 11/02/22 tablet vomiting #14 tabs potassium chloride 10 mEq See Rx Instructions .Route 07/27/22 11/02/22 capsule,extended release .COMPLEX #90 caps spironolactone 25 mg tablet 25 mg PO DAILY magnesium wasting 07/27/22 11/02/22 #90 tabs amlodipine 2.5 mg tablet See Rx Instructions .Route 08/24/22 11/02/22 .COMPLEX #90 tabs pregabalin 225 mg capsule 225 mg PO BID #180 caps 08/25/22 11/02/22 calcium carbonate 600 mg-vitamin 1 tab PO DIRECTED 09/05/22 11/02/22 D3 10 mcg (400 unit) chewable tablet (Calcium 600 with Vitamin D3) multivitamin with minerals-folic 1 tab PO DAILY 09/05/22 11/02/22 acid 200 mcg chewable tablet (Women's Multivitamin Gummies) vitamin B complex (B 1 tab PO DAILY 09/05/22 11/02/22 Complex-Vitamin B12 tablet) cetirizine 10 mg tablet 10 mg PO QD-BID #180 tabs 10/10/22 11/02/22 celecoxib 200 mg capsule See Rx Instructions .Route 11/03/22 11/03/22 .COMPLEX #90 caps Previous Rx's Medication Instructions Recorded pravastatin 40 mg tablet 40 mg PO DAILY #90 tabs 04/13/22 magnesium oxide 400 mg PO DAILY #90 tabs 05/04/22 pantoprazole 20 mg tablet,delayed See Rx Instructions .Route 05/18/22 release .COMPLEX #180 tabs duloxetine 60 mg capsule,delayed 60 mg PO DAILY #90 caps 07/11/22 release ondansetron 4 mg disintegrating 4 mg PO DAILY PRN nausea and 07/27/22 tablet vomiting #14 tabs potassium chloride 10 mEq See Rx Instructions .Route 07/27/22 capsule,extended release .COMPLEX #90 caps spironolactone 25 mg tablet 25 mg PO DAILY magnesium wasting 07/27/22 #90 tabs amlodipine 2.5 mg tablet See Rx Instructions .Route 08/24/22 .COMPLEX #90 tabs pregabalin 225 mg capsule 225 mg PO BID #180 caps 08/25/22 cetirizine 10 mg tablet 10 mg PO QD-BID #180 tabs 10/10/22 celecoxib 200 mg capsule See Rx Instructions .Route 11/03/22 .COMPLEX #90 caps Allergies Allergy/AdvReac Type Severity Reaction Status Date / Time ciprofloxacin Allergy Verified 11/02/22 16:27 codeine AdvReac Intermediate Nausea Verified 11/02/22 16:27 nitrofurantoin AdvReac Intermediate bloating, Verified 11/02/22 16:27 weakness hydrochlorothiazide AdvReac Mild hypomagnese Verified 11/02/22 16:27 pop narcotics AdvReac Intermediate Nausea, Uncoded 11/02/22 16:27 vomiting General Stated Complaint: [id number] ROSNEDO: 3 Review of Systems All systems reviewed & are unremarkable except as noted in HPI and below Constitutional Constitutional: Denies chills, Denies fever(s) and Denies weakness Eyes Eyes: Denies loss of vision Cardiovascular Cardiovascular: Denies chest pain and Denies dyspnea Respiratory Respiratory: Denies cough and Denies dyspnea Gastrointestinal Gastrointestinal: Denies abdominal pain, Denies nausea and Denies vomiting Genitourinary Genitourinary: Denies dysuria Musculoskeletal Musculoskeletal: Denies joint swelling Integumentary/Breasts Skin/Breast: Denies rash Neurologic Neurologic: Denies loss of vision and Denies weakness PFSH All Active Problems (Updated 11/30/22 @ 13:46 by Chris Meyer MD) Pre-syncope (Acute) Vision changes (Acute) Nail dystrophy (Acute) Ulnar neuropathy at elbow of left upper extremity (Acute) Peripheral neuropathy (Acute 07/01/14) Paresthesias (Chronic) Spasticity (Acute) Coordination impairment (Acute 07/05/16) Spinal stenosis, other region (Acute 12/14/11) 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; cervical spondylosis; operated 08/03/16 Cervical myelopathy (Chronic) Spinal stenosis, lumbar region without neurogenic claudication (Acute 12/14/11) Osteoarthritis of spine with radiculopathy, cervical region (Acute 09/05/11) Sacroiliac joint dysfunction of right side (Acute) Spinal stenosis of lumbar region with radiculopathy (Acute) 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 [place] [facility] [place] Essential hypertension (Acute 02/26/13) [place] cardiac risk >20% in next 10 years (Chronic) 2020: 32% Urothelial carcinoma of bladder (Chronic ~2016) Magnesium-losing nephropathy (Chronic) very mild; tx spironolactone Delayed gastric emptying (Chronic) mild GERD (gastroesophageal reflux disease) (Chronic) Depression (Chronic 07/01/14) Medical marijuana use (Chronic) Arthritis of left glenohumeral joint (Chronic ~07/01/14) Leg edema (Acute) Osteopenia (Acute 12/14/11) Osteoporosis wrist, osteopenia hip, normal bone density of spine 2017 osteopenia 2011 Medical History Acute cystitis Acute UTI Acute UTI Adhesive capsulitis of left shoulder Injected 12/11/2018 Anemia CHF exacerbation Hx of bacterial pneumonia Hyperlipidemia Neuropathy Pneumonia Sessile colonic polyp (03/14/18) Smoker Spinal stenosis Unintentional weight loss Weakness Surgical History Anterior Fusion Cervical Spine C3-C5 (07/31/16) [place] [facility] [place] Arthroplasty of knee Per patient she has not had a TOTAL KNEE Breast, Lumpectomy Cervical spondylosis 11/03/20 C5-[address] Everett Cardoza Day 11/04/20 D/C'd home [place] [facility] [place]) Colon,transverse,polyp,biopsy - fragment of sessile serrated adenoma. (Dr Neely) H/O cystoscopy (09/06/18) w/transurethral resection of bladder tumors-Dr Wiggins H/O laminectomy (~06/2021) APD-L3-L4 laminectomy, medial fa for decompression of stenosis, lateral disectomy [id number] Hemiarthroplasty (09/07/15) L shoulder Dr Luz History of hemiarthroplasty of left shoulder 09/07/2015 Repair of umbilical hernia Rotator Cuff Repair Status post shoulder hemiarthroplasty Tenotomy and debridement tendon L shoulder (10/25/17) Family History Father Essential hypertension Glaucoma Alzheimer's dementia Social History Smoking/Tobacco Use Status: Former Tobacco Use Smoking risk assessment performed?: Yes Alcohol Intake: former Substance use type: marijuana Details: marijuana: uses qd Household members: none Housing: house Number of Children: 0 Pets and animals: Yes Pets and animals: cat(s) and dog(s) Current gender identity: female What type of physical activity do you participate in: none and other Details: PT 2 xweek Frequency: 1-2 times per week Seatbelt use: always Drive 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 Exam Const General: no acute distress Orientation: alert HENCA Head: normal to inspection Ears: external ears normal General nose exam: external nose normal Mouth: moist mucous membranes Eyes General: appearance normal, both eyes and all related structures Neck Neck: normal visual inspection Resp Effort & Inspection: normal respiratory effort and able to speak in complete sentences Auscultation: clear to auscultation bilaterally Cardio Jugular venous pressure: no JVD Rate: regular rate Heart Sounds: no murmurs GI Palpation: soft and nontender Skin General skin exam: no rashes or lesions noted Neuro General: patient alert and patient oriented x3 Cranial Nerves: CN's II-XI intact bilaterally, PERRL, accommodation normal, EOM intact bilaterally, no nystagmus, facial strength normal, tongue midline and able to rotate head bilaterally Cognition: normal cognition Speech: speech normal Extrem General: normal to inspection Psych Mental Status: mental status grossly normal Course Vital Signs Vital signs: Vital Signs Temperature 36.8 C 11/30/22 12:05 Pulse 76 11/30/22 12:05 Respiratory Rate 18 03/08/23 12:05 Blood Pressure 126/62 11/30/22 12:05 Pulse Oximetry 97 11/30/22 12:05 Temperature 36.8 C 11/30/22 12:05 Temperature Source Tympanic 11/30/22 12:05 Pulse 76 11/30/22 12:05 Respiratory Rate 18 11/30/22 12:05 Respiratory Effort Normal 11/30/22 12:10 Respiratory Depth Normal 11/30/22 12:10 Respiratory Pattern Normal 11/30/22 12:10 Blood Pressure 126/62 11/30/22 12:05 Pulse Oximetry 97 11/30/22 12:05 Oxygen Delivery Method Room Air 11/30/22 12:05 Oxygen Flow Rate 0 11/30/22 12:05 Pain Level 4 11/30/22 12:05
--- NOTE | 2022-11-30 12:30 | DI.MRI_ITS ---
Exam(s) MR BRAIN WO EXAM: MR BRAIN WO CLINICAL HISTORY: ?cva TECHNIQUE: Multiplanar multisequence MRI of the brain was performed. COMPARISON: No exams were available for comparison FINDINGS: VENTRICLES AND EXTRA AXIAL SPACES: Normal in size and morphology for the patient's age. MIDLINE SHIFT: None. CEREBRAL PARENCHYMA: Scattered small high signal foci in the white matter consistent with mild microv ascular disease. No focus of restricted diffusion to suggest acute infarct. No space-occupying lesio n identified. HEMORRHAGE: None. BRAINSTEM/CEREBELLUM: Normal. VISUALIZED PARANASAL SINUSES/MASTOIDS:Opacification of the left sphenoid sinus. Sinuses otherwise cl ear. INAJA OF LEE: Normal flow void. PITUITARY GLAND: Unremarkable. ORBITS: Unremarkable. IMPRESSION: No acute abnormality.. DATA REPOSITORY:
[2022-11-30 12:32] LABS: Abs Immature Grans 0.03 10^3/uL (0.0-0.06); Absolute Basophil Count 0.03 10^3/uL (0.0-0.2); Absolute Monocyte Count 0.59 10^3/uL (0.1-0.8); Absolute Neutrophil Count 5.67 10^3/uL (1.2-6.7); Basophils % 0.4; Eosinophils % 1.2; HCT 38.2 % (36.0-46.0); HGB 12.5 g/dL (11.2-15.7); Immature Grans % 0.4; MCH 31.5 pg (27.0-33.0); MCHC 32.7 % (32.0-36.0); MCV 96 fL (80-95); MPV 11.5 fL (8.0-11.0); Monocytes % 7.4; Neutrophils % 70.6; Platelet Count 160 10^3/uL (130-400); RBC 3.97 10^6/uL (3.93-5.22); RDW-SD 49.2 fL; WBC 8.02 10^3/uL (4.4-10.8)
[2022-11-30 12:56] LABS: ALT 27 U/L (14-59); AST 23 U/L (15-37); Albumin 3.9 g/dL (3.4-5.0); Alkaline Phosphatase 86 U/L (46-116); Anion Gap 8.1 mmol/L (3-11); BUN 27 mg/dL (7-18); Bilirubin, Total 0.3 mg/dL (0.2-1.0); CO2 27.9 mmol/L (21.0-32.0); CREATININE 1.3 mg/dL (0.55-1.02); Calcium 9.5 mg/dL (8.5-10.1); Chloride 103 mmol/L (98-107); Estimated GFR 43.69 (mL/min/1.73m2); Glucose 83 mg/dL (74-106); Magnesium 1.9 mg/dL (1.8-2.4); NT-proBNP 303 pg/mL (<300); Potassium 4.3 mmol/L (3.5-5.1); Sodium 139 mmol/L (136-145); TSH (W/Ref FT4) 3.68 uIU/mL (0.36-3.74); Total Protein 7.3 g/dL (6.4-8.2); Troponin I < 50 ng/L (<or=60)
[2022-11-30 13:33] VITALS: BP 139/55; PULSE 69; PULSE 74; O2SAT 94
[2022-11-30 13:34] VITALS: PULSE 68; RESP 15; O2SAT 97
[2022-11-30 13:40] VITALS: PULSE 77; RESP 14; O2SAT 96
[2022-11-30 13:46] VITALS: BP 143/66; PULSE 67; PULSE 70; RESP 13; O2SAT 96
== END 2022-11-30 14:20 | disposition home or self-care (01) ==
PROVIDERS: Emergency Provider Emergency Medicine; PCP Nurse Practitioner Adult Health
DX: R55 Syncope and collapse (principal); H53.9 Unspecified visual disturbance; I11.0 Hypertensive heart disease with heart failure; I50.9 Heart failure, unspecified
CPT/HCPCS: 36415; 80053; 93005; 99284; 70551; 83735; 83880; 84443; 84484; 85025; 93010; 99285

== ENCOUNTER → 2022-12-06 10:15 | Outpatient (BNVA) | payer MEDICARE, SELFPAY | PROVIDERS: PCP Nurse Practitioner Adult Health; Referring Provider Nurse Practitioner Adult Health; Visit Provider Student in an Organized Health Care Education/Training Program ==

== ENCOUNTER → 2023-01-10 12:30 | Outpatient (BNVA) | payer MEDICARE, SELFPAY | PROVIDERS: PCP Nurse Practitioner Adult Health; Visit Provider Psychiatry & Neurology Neurology | DX: G95.9 Disease of spinal cord, unspecified (principal); M48.061 Spinal stenosis, lumbar region without neurogenic claudication | CPT/HCPCS: 99214 ==

== ENCOUNTER 2023-01-24 04:16 | Outpatient (CLI) | payer MEDICARE, SELFPAY ==
[2023-01-24 12:17] LABS: Estimated GFR 59.86 (mL/min/1.73m2)
[2023-01-24] MEDS: Normal Saline - Diluent 50 ML VIAL IJ (12:42)
[2023-01-24] MEDS: Omnipaque 350 MG/ML 500 ML BTL-Imaging package 70 ML IJ (12:43)
--- NOTE | 2023-01-24 12:51 | DI.CT_ITS ---
Exam(s) CT CHEST W EXAM: CT CHEST W CLINICAL HISTORY: interval assessment of LLL infiltrate (March-->Jun),r91.8. TECHNIQUE: Multi planar reconstructions were performed. CONTRAST MATERIAL: Omnipaque 350; 75 cc COMPARISON: CR XR PORTABLE CHEST AP from 04/18/[address] CHEST PE CTA from 04/18/[address] CHEST PE CTA from 07/20/[address] THORAX ABD/PEL CTA from 09/24/[address] CHEST LUNG CANCER SCREEN from 11/07/2022 FINDINGS: CHEST: LUNGS: The previously described subpleural 6-7 millimeter nodule in the lateral basal segment of the left lower lobe is again noted, unchanged. The previously present left lower lobe infiltrate remains improved from March 2022 and prior studies. There is a pleural base 2-3 millimeter nodule in lateral aspect of the left lower lobe which is unchanged. No pleural effusion on either side. In the oppos ite-right lung there are few pleural based densities over the posterior aspect of superior segment ri ght lower lobe again noted, stable. Small nodular density measuring 3 millimeters in the lateral seg ment of the right middle lobe the is also unchanged. Benign thin-walled bulla in the right lung base -posterior basal segment right lower lobe is again noted, measuring 1.4 x 1.3 cm and exhibiting a thi n benign-appearing wall and no fluid therein. There are no new focal findings in the trachea and mainstem bronchi.. MEDIASTINUM: There is no hilar nor mediastinal adenopathy. Visualized thyroid unremarkable. CARDIAC: Heart size is normal. There is no pericardial effusion.Coronary artery calcification again noted. Caliber of the ascending thoracic aorta is upper normal. No evidence of dissection. VISUALIZED UPPER ABDOMEN:Adrenal gland thickening bilaterally remains unchanged. OSSEOUS: No significant osseous lesions.No fractures. Left shoulder prosthesis noted. Right shoulde r surgery noted. Cervical spinal plate partially seen.. IMPRESSION: 1. Stable appearance of the 6-7 millimeter left lower lobe nodule compared to region studies. Other findings described above are also stable. 2. Excluding the nodule above, the left lower lobe infiltrate which was significantly present in March 2022 has significantly improved. There are no new areas of infiltrate and there are no pleural effu sions. 3. No intrathoracic adenopathy. RADIATION DOSE DELIVERED: 350.69mGy.cm Total DLP DATA REPOSITORY: All CT scans at this facility are submitted to the National Radiology Data Registry (NRDR) Dose Index Registry (DIR) with the [employer] (A[employer]). RADIATION OPTIMIZATION: All CT scans at this facility use at least one of these dose optimization te chniques: automated exposure control; mA and/or kV adjustment per patient size (includes targeted exa ms where dose is matched to clinical indication); or iterative reconstruction.
== END 2023-01-24 04:36 ==
LOC: DI 04:16
PROVIDERS: PCP Nurse Practitioner Adult Health; Visit Provider Nurse Practitioner Adult Health
DX: R79.89 Other specified abnormal findings of blood chemistry (principal); R91.8 Other nonspecific abnormal finding of lung field
CPT/HCPCS: 36415; 99213; 71260; 73030; 82565

== ENCOUNTER 2023-01-24 14:51 | Outpatient (CLI) | payer MEDICARE, SELFPAY ==
--- NOTE | 2023-01-24 14:30 | DI.RAD_ITS ---
Exam(s) XR SHOULDER LT COMPLETE 2+V EXAM: XR SHOULDER LT COMPLETE 2+V CLINICAL HISTORY: Left shoulder pain. TECHNIQUE: 2D digital imaging was performed. COMPARISON: CR XR SHOULDER LT COMPLETE 2+V from 08/11/2021 FINDINGS: Two views: Humeral head prosthesis again noted. Subtle change position relative to the osseous glenoid but this may be positional. No evidence of fracture or loosening. IMPRESSION: As above. DATA REPOSITORY: RADIATION DOSE DELIVERED:
== END 2023-01-24 14:52 | disposition home or self-care (01) ==
LOC: DIORS 14:52
PROVIDERS: PCP Nurse Practitioner Adult Health; Referring Provider Nurse Practitioner Adult Health; Visit Provider Student in an Organized Health Care Education/Training Program
DX: M19.012 Primary osteoarthritis, left shoulder (principal); Z96.612 Presence of left artificial shoulder joint
CPT/HCPCS: 73030

== ENCOUNTER 2023-04-06 01:57 | Outpatient (CLI) | payer MEDICARE, SELFPAY ==
--- NOTE | 2023-04-06 07:45 | DI.DEXA_ITS ---
Exam(s) XR DEXA BONE DENSITY W/WO ENEDELIA EXAM: XR DEXA BONE DENSITY W/WO ENEDELIA CLINICAL HISTORY: assess bone density,screening for osteoporosis in postmenopausal woman,[id number]. TECHNIQUE: Routine DEXA evaluation of the lumbar spine, hip, or forearm. COMPARISON: Prior DEXA scan January 2017 FINDINGS: Performed on a [employer] unit. Lateral image: No compression fracture evident. Lumbar Spine total T-score: -0.2. Prior 2017 reading was -0.3 Hip total T-score:-2.8. Prior 2017 reading was -1. 9 Independent reading at the level of the femoral neck yields T-score of -2.5 Forearm total T-score: -4.0 IMPRESSION: Bone mineral density measures in the osteoporosis range. Fracture risk is high. Note: Any spine fracture indicates 5x risk for subsequent spine fracture and 2x risk for subsequent h ip fracture. World Health Organization criteria for BMD interpretation classify patients: Normal...... T- Score at or above -1.0 Osteopenic... T- Score between -1.0 and -2.5 Osteoporosis... T-Score at or below -2.5
== END 2023-04-06 02:17 ==
LOC: DI 01:57
PROVIDERS: PCP Nurse Practitioner Adult Health; Visit Provider Nurse Practitioner Adult Health
DX: M81.0 Age-related osteoporosis without current pathological fracture (principal); Z78.0 Asymptomatic menopausal state
CPT/HCPCS: 77080

== ENCOUNTER → 2023-05-17 12:34 | Outpatient (BNVA) | payer MEDICARE, SELFPAY | PROVIDERS: PCP Nurse Practitioner Adult Health; Referring Provider Nurse Practitioner Adult Health; Visit Provider Psychiatry & Neurology Neurology | DX: G95.9 Disease of spinal cord, unspecified (principal); M48.061 Spinal stenosis, lumbar region without neurogenic claudication; R20.2 Paresthesia of skin; R25.2 Cramp and spasm; I10 Essential (primary) hypertension | CPT/HCPCS: 99214 ==

== ENCOUNTER → 2023-07-21 08:39 | Outpatient (BNVA) | payer MEDICARE, SELFPAY | PROVIDERS: PCP Nurse Practitioner Adult Health; Visit Provider Urology | DX: C67.9 Malignant neoplasm of bladder, unspecified (principal); N39.0 Urinary tract infection, site not specified | CPT/HCPCS: 52000; 81003 ==

== ENCOUNTER 2023-07-21 09:33 | Outpatient (REF) | payer MEDICARE, SELFPAY | END 2023-07-21 09:34 | disposition home or self-care (01) | LOC: LBN 09:33 | PROVIDERS: PCP Nurse Practitioner Adult Health; Visit Provider Urology | DX: C67.9 Malignant neoplasm of bladder, unspecified (principal); N39.0 Urinary tract infection, site not specified; B96.29 Other Escherichia coli [E. coli] as the cause of diseases classified elsewhere; R82.89 Other abnormal findings on cytological and histological examination of urine | CPT/HCPCS: 87077; 87086; 87186 ==

== ENCOUNTER 2023-08-14 16:50 | Emergency (ER) | payer MEDICARE, SELFPAY ==
[2023-08-14] VITALS (22 sets, daily range): BP systolic 135–166; BP diastolic 49–65; PULSE 54–76; RESP 0–27; TEMP 36.4; O2SAT 78–100
[2023-08-14] MEDS: Normal Saline 1,000 ML 1000 ML IV (17:10)
[2023-08-14 17:19] LABS: Abs Immature Grans 0.03 10^3/uL (0.0-0.06); Absolute Basophil Count 0.03 10^3/uL (0.0-0.2); Absolute Eosinophil Count 0.12 10^3/uL (0.0-0.7); Absolute Monocyte Count 0.82 10^3/uL (0.1-0.8); Absolute Neutrophil Count 8.42 10^3/uL (1.2-6.7); Basophils % 0.3; Eosinophils % 1.1; HCT 34.9 % (36.0-46.0); HGB 11.6 g/dL (11.2-15.7); Immature Grans % 0.3; Lymphocytes % 14.5; MCH 30.6 pg (27.0-33.0); MCHC 33.2 % (32.0-36.0); MCV 92 fL (80-95); Monocytes % 7.4; Neutrophils % 76.4; Platelet Count 185 10^3/uL (130-400); RBC 3.79 10^6/uL (3.93-5.22); RDW 14.5 % (11.7-14.6); RDW-SD 48.3 fL; WBC 11.02 10^3/uL (4.4-10.8)
[2023-08-14 17:54] LABS: ALT 16 U/L (14-59); AST 23 U/L (15-37); Albumin 3.5 g/dL (3.4-5.0); Alkaline Phosphatase 75 U/L (46-116); Anion Gap 14.2 mmol/L (3-11); BUN 37 mg/dL (7-18); Bilirubin, Total 0.8 mg/dL (0.2-1.0); CO2 20.8 mmol/L (21.0-32.0); Calcium 9.6 mg/dL (8.5-10.1); Chloride 100 mmol/L (98-107); Estimated GFR 59.49 (mL/min/1.73m2); Glucose 68 mg/dL (74-106); Magnesium 1.8 mg/dL (1.8-2.4); Potassium 4.1 mmol/L (3.5-5.1); Sodium 135 mmol/L (136-145); Total Protein 7.2 g/dL (6.4-8.2)
--- NOTE | 2023-08-14 18:08 | W.ED.GENAD ---
Discharge Plan Disposition Patient Disposition: Home Discharge Details Clinical Impression: Decreased oral intake, Acute UTI, Dehydration Primary Care Provider: Chanel Nelson ED Provider: Jen Yoon Home Meds and New Rx's Prescriptions: New cephalexin 500 mg capsule 500 mg PO TID 5 Days Qty: 15 0RF Continued acetaminophen [Tylenol Arthritis Pain] 650 mg tablet extended release 650 mg PO TID PRN duloxetine 60 mg capsule,delayed release(DR/EC) 60 mg PO DAILY Qty: 90 3RF alendronate [Fosamax] 70 mg tablet 70 mg PO QWEEK Qty: 12 3RF Rx Instructions: Take with water 30-min before food/drink/med and avoid lying down for 20 min. Treatment started 2022. Women's Multivitamin Gummies 200 mcg tablet,chewable 1 tab PO DAILY vitamin B complex [B Complex-Vitamin B12] Tablet 1 tab PO DAILY Hold Instructions: Pt Stopped/Never Started amlodipine 2.5 mg tablet See Rx Instructions .ROUTE .COMPLEX Qty: 90 3RF Dose Instruction: TAKE 1 TABLET EVERY DAY Rx Instructions: TAKE 1 TABLET EVERY DAY pravastatin 40 mg tablet 40 mg PO DAILY Qty: 90 3RF ondansetron 4 mg tablet,disintegrating 4 mg PO DAILY PRN (Reason: nausea and vomiting) Qty: 14 12RF pregabalin 225 mg capsule 225 mg PO BID Qty: 180 3RF pantoprazole 20 mg tablet,delayed release (DR/EC) See Rx Instructions .ROUTE .COMPLEX Qty: 180 3RF Dose Instruction: TAKE 1 TABLET TWICE DAILY FOR REFLUX Rx Instructions: TAKE 1 TABLET TWICE DAILY FOR REFLUX potassium chloride 10 mEq capsule, extended release See Rx Instructions .ROUTE .COMPLEX Qty: 90 3RF Hold Instructions: Home Medication placed on hold at Doctor's office Dose Instruction: TAKE 1 CAPSULE EVERY DAY Rx Instructions: TAKE 1 CAPSULE EVERY DAY celecoxib 200 mg capsule See Rx Instructions .ROUTE .COMPLEX Qty: 90 3RF Dose Instruction: TAKE 1 CAPSULE EVERY DAY IN THE MORNING WITH FOOD FOR CHRONIC SPINE PAIN (CERVICAL AND LUMBAR) Rx Instructions: TAKE 1 CAPSULE EVERY DAY IN THE MORNING WITH FOOD FOR CHRONIC SPINE PAIN (CERVICAL AND LUMBAR) magnesium oxide 400 mg magnesium tablet 400 mg PO DAILY Qty: 90 3RF spironolactone 25 mg tablet See Rx Instructions .ROUTE .COMPLEX Qty: 90 3RF Dose Instruction: TAKE 1 TABLET EVERY DAY FOR MAGNESIUM WASTING Rx Instructions: TAKE 1 TABLET EVERY DAY FOR MAGNESIUM WASTING cetirizine 10 mg tablet See Rx Instructions .ROUTE .COMPLEX Qty: 180 3RF Dose Instruction: TAKE 1 TABLET ONE TO TWO TIMES PER DAY. TAKE LOWEST EFFECTIVE DOSE Rx Instructions: TAKE 1 TABLET ONE TO TWO TIMES PER DAY. TAKE LOWEST EFFECTIVE DOSE Discharge Instructions Instructions: Dehydration (ED) Additional Instructions: Please continue to drink lots of water. Take antibiotics as prescribed. Return with worsening symptoms or not tolerating medications Discharge Data Discharge Date/Time-TO BE ENTERED AT DEPARTURE: 08/14/23 20:08 Medical Decision Making Emergent evaluation of poor oral intake. Initial differential includes mild dehydration, electrolyte derangement, UTI. Patient is not suicidal, she just has not been drinking enough. Plan for IV fluid resuscitation and blood work. Blood work reviewed she has some mild hypoglycemia. Mild dehydration. Will continue IV fluid resuscitation and give an oral challenge. Her CBC indicates some mild leukocytosis. No significant anemia. Patient has eaten a meal and had multiple drinks in the emergency department and is feeling better. Urinalysis is concerning for infection. A culture has been sent. A dose of Rocephin was given in the emergency department and the patient will be discharged with a prescription for Keflex. Encouraged to continue oral rehydration at home. Patient was provided with return precautions. Follow-up with PCP as needed. HPI General Date/Time Provider Initiated Documentation: 08/14/23 17:03. HPI Narrative: 73-year-old female with past medical history including peripheral neuropathy presents for evaluation of poor oral intake. She reports that for the last week she has not been eating or drinking much because she has been worried about her ailing cat. She states that yesterday she started drinking oral hydration solution and started feeling better. Her friend was concerned about her and so her friend recommended that she come to the emergency department. Related Data Home Medications Medication Instructions Recorded Confirmed amlodipine 2.5 mg tablet See Rx Instructions .Route 08/24/22 08/14/23 .COMPLEX #90 tabs multivitamin with minerals-folic 1 tab PO DAILY 09/05/22 08/14/23 acid 200 mcg chewable tablet (Women's Multivitamin Gummies) vitamin B complex (B 1 tab PO DAILY 09/05/22 08/14/23 Complex-Vitamin B12 tablet) pravastatin 40 mg tablet 40 mg PO DAILY #90 tabs 02/03/23 08/14/23 acetaminophen 650 mg 650 mg PO TID PRN 02/08/23 08/14/23 tablet,extended release (Tylenol Arthritis Pain) ondansetron 4 mg disintegrating 4 mg PO DAILY PRN nausea and 03/06/23 08/14/23 tablet vomiting #14 tabs pregabalin 225 mg capsule 225 mg PO BID #180 caps 03/14/23 08/14/23 pantoprazole 20 mg tablet,delayed See Rx Instructions .Route 04/24/23 08/14/23 release .COMPLEX #180 tabs alendronate 70 mg tablet (Fosamax) 70 mg PO QWEEK #12 tabs 04/26/23 08/14/23 celecoxib 200 mg capsule See Rx Instructions .Route 05/15/23 08/14/23 .COMPLEX #90 caps potassium chloride 10 mEq See Rx Instructions .Route 05/15/23 08/14/23 capsule,extended release .COMPLEX #90 caps duloxetine 60 mg capsule,delayed 60 mg PO DAILY #90 caps 05/17/23 08/14/23 release magnesium oxide 400 mg PO DAILY #90 tabs 05/23/23 08/14/23 cetirizine 10 mg tablet See Rx Instructions .Route 08/10/23 08/14/23 .COMPLEX #180 tabs spironolactone 25 mg tablet See Rx Instructions .Route 08/10/23 08/14/23 .COMPLEX #90 tabs cephalexin 500 mg capsule 500 mg PO TID 5 days #15 caps 08/14/23 Previous Rx's Medication Instructions Recorded amlodipine 2.5 mg tablet See Rx Instructions .Route 08/24/22 .COMPLEX #90 tabs pravastatin 40 mg tablet 40 mg PO DAILY #90 tabs 02/03/23 ondansetron 4 mg disintegrating 4 mg PO DAILY PRN nausea and 03/06/23 tablet vomiting #14 tabs pregabalin 225 mg capsule 225 mg PO BID #180 caps 03/14/23 pantoprazole 20 mg tablet,delayed See Rx Instructions .Route 04/24/23 release .COMPLEX #180 tabs alendronate 70 mg tablet (Fosamax) 70 mg PO QWEEK #12 tabs 04/26/23 celecoxib 200 mg capsule See Rx Instructions .Route 05/15/23 .COMPLEX #90 caps potassium chloride 10 mEq See Rx Instructions .Route 05/15/23 capsule,extended release .COMPLEX #90 caps duloxetine 60 mg capsule,delayed 60 mg PO DAILY #90 caps 05/17/23 release magnesium oxide 400 mg PO DAILY #90 tabs 05/23/23 cetirizine 10 mg tablet See Rx Instructions .Route 08/10/23 .COMPLEX #180 tabs spironolactone 25 mg tablet See Rx Instructions .Route 08/10/23 .COMPLEX #90 tabs cephalexin 500 mg capsule 500 mg PO TID 5 days #15 caps 08/14/23 Allergies Allergy/AdvReac Type Severity Reaction Status Date / Time ciprofloxacin Allergy Verified 08/14/23 19:12 codeine AdvReac Intermediate Nausea Verified 08/14/23 19:12 nitrofurantoin AdvReac Intermediate bloating, Verified 08/14/23 19:12 weakness hydrochlorothiazide AdvReac Mild hypomagnese Verified 08/14/23 19:12 pop narcotics AdvReac Intermediate Nausea, Uncoded 08/14/23 19:12 vomiting General Stated Complaint: GenMedical ROSENDO: 3 PFSH All Active Problems Dehydration (Acute) Acute UTI (Acute) Decreased oral intake (Acute) High risk for fracture due to osteoporosis by DEXA scan (Acute ~03/2023) Poor manual dexterity (Acute) Lung nodule seen on imaging study (Acute ~10/2022) Annual LDCT Impaired gait and mobility (Acute) Chronic pain (Chronic) No-show for appointment (Acute) DDD (degenerative disc disease), lumbar (Acute) Pikus; neurosurg Nail dystrophy (Acute) Ulnar neuropathy at elbow of left upper extremity (Acute) Peripheral neuropathy (Acute 07/01/14) Paresthesias (Chronic) Spasticity (Acute) Coordination impairment (Acute 07/05/16) Spinal stenosis, other region (Acute 12/14/11) 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; cervical spondylosis; operated 08/03/16 Cervical myelopathy (Chronic) Spinal stenosis, lumbar region without neurogenic claudication (Acute 12/14/11) Osteoarthritis of spine with radiculopathy, cervical region (Acute 09/05/11) Sacroiliac joint dysfunction of right side (Acute) Spinal stenosis of lumbar region with radiculopathy (Acute) 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 Dr Velazco, [facility] Neurology Essential hypertension (Acute 02/26/13) [place] cardiac risk >20% in next 10 years (Chronic) 2020: 32% Urothelial carcinoma of bladder (Chronic ~2016) Magnesium-losing nephropathy (Chronic) very mild; tx spironolactone GERD (gastroesophageal reflux disease) (Chronic) Depression (Chronic 07/01/14) Medical marijuana use (Chronic) Arthritis of left glenohumeral joint (Chronic ~07/01/14) Leg edema (Acute) Osteopenia (Acute 12/14/11) Osteoporosis wrist, osteopenia hip, normal bone density of spine 2016 osteopenia 2011 Medical History CHF exacerbation Acute cystitis Pneumonia Acute UTI Weakness Acute UTI Anemia Smoker Unintentional weight loss Delayed gastric emptying mild Hyperlipidemia Neuropathy Sessile colonic polyp (03/14/18) Adhesive capsulitis of left shoulder Injected 12/11/2018 Spinal stenosis Hx of bacterial pneumonia Surgical History H/O laminectomy (~06/2021) APD-L3-L4 laminectomy, medial fa for decompression of stenosis, lateral disectomy [id number] Cervical spondylosis 11/03/20 C5-[address] Everett Cardoza Day 11/04/20 D/C'd home Status post shoulder hemiarthroplasty History of hemiarthroplasty of left shoulder 09/07/2015 H/O cystoscopy (09/06/18) w/transurethral resection of bladder tumors-Dr Wiggins Tenotomy and debridement tendon L shoulder (10/25/17) Rotator Cuff Repair Repair of umbilical hernia Hemiarthroplasty (09/07/15) L shoulder Dr Luz Colonoscopy - MAC (03/12/18) Colon,transverse,polyp,biopsy - fragment of sessile serrated adenoma. (Dr Neely) Breast, Lumpectomy Arthroplasty of knee Per patient she has not had a TOTAL KNEE Anterior Fusion Cervical Spine C3-C5 (07/31/16) Jul 2016, [facility] Dr. 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 Peripheral pulses 2+ and equal in all extremities Brisk capillary refill in all extremities. No peripheral edema RESP: Unlabored respiratory effort, Clear to auscultation bilaterally No wheezes rales or rhonchi GI: Soft, Nontender, Nondistended, No organomegaly MSK: Extremities with full range of motion, no deformity or TTP SKIN: Warm, Dry. No rashes or lesions. NEURO: No focal neurologic deficits. 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 intact Sensation grossly intact Normal strength throughout PSYCH: Appropriate mood and affect Course Vital Signs Vital signs: Vital Signs Temperature 36.4 C 08/14/23 16:51 Pulse 65 08/14/23 16:51 Respiratory Rate 20 08/14/23 16:51 Blood Pressure 166/59 H 08/14/23 16:51 Pulse Oximetry 99 08/14/23 16:51 Temperature 36.4 C 08/14/23 16:59 Temperature Source Oral 08/14/23 16:59 Pulse 54 L 11/20/23 17:31 Pulse 54 L 08/14/23 17:31 Respiratory Rate 16 08/14/23 17:31 Respiratory Effort Normal, Non-Labored 08/14/23 16:59 Respiratory Depth Normal 08/14/23 16:59 Respiratory Pattern Normal 08/14/23 16:59 Blood Pressure 135/49 L 08/14/23 17:31 Blood Pressure Mean 78 08/14/23 17:31 Blood Pressure Position Supine 08/14/23 16:59 Pulse Oximetry 100 08/14/23 17:31 Oxygen Delivery Method Room Air 08/14/23 16:59 Oxygen Flow Rate 0 08/14/23 16:51 Lab/Test Results Lab/Test Results: Laboratory Tests Range/Units 08/14/23 08/14/23 17:00 17:28 WBC (4.4-10.8) 10^3/uL 11.02 H RBC (3.93-5.22) 10^6/uL 3.79 L Hgb (11.2-15.7) g/dL 11.6 Hct (36.0-46.0) % 34.9 L MCV (80-95) fL 92 MCH (27.0-33.0) pg 30.6 MCHC (32.0-36.0) % 33.2 RDW (11.7-14.6) % 14.5 Plt Count (130-400) 10^3/uL 185 MPV (8.0-11.0) fL 12.0 H Immature Gran % 0.3 Neutrophils % 76.4 Lymphocytes % 14.5 Monocytes % 7.4 Eosinophils % 1.1 Basophils % 0.3 Nucleated RBC % (0.0-0.3) % 0.0 Absolute Neutrophils (1.2-6.7) 10^3/uL 8.42 H Absolute Lymphocytes (1.2-3.4) 10^3/uL 1.60 Absolute Monocytes (0.1-0.8) 10^3/uL 0.82 H Absolute Eosinophils (0.0-0.7) 10^3/uL 0.12 Absolute Basophils (0.0-0.2) 10^3/uL 0.03 Sodium Cancelled 135 L Potassium Cancelled 4.1 Chloride Cancelled 100 Carbon Dioxide Cancelled 20.8 L Anion Gap Cancelled 14.2 H BUN Cancelled 37 H Creatinine Cancelled 1.0 Est GFR (CKD-EPI 2020) Cancelled 59.49 Glucose Cancelled 68 L Calcium Cancelled 9.6 Magnesium Cancelled 1.8 Total Bilirubin Cancelled 0.8 AST Cancelled 23 ALT Cancelled 16 Alkaline Phosphatase Cancelled 75 Total Protein Cancelled 7.2 Albumin Cancelled 3.5
[2023-08-14 18:58] LABS: Bilirubin Small (Negative); Blood Negative (Negative); Clarity Clear (Clear); Glucose Negative (Negative); Ketones >=160 mg/dL (Negative); Leukocyte Esterase Small (Negative); Nitrite Negative (Negative); Specific Gravity >= 1.030 (1.005-1.025); Urobilinogen 0.2 mg/dL (Up to 0.2); pH 5.5 (5-8)
[2023-08-14 19:04] LABS: Bacteria Few HPF (Negative); Crystals Negative HPF (Negative); Epithelial Cells Rare HPF (Negative); Mucus Trace (Negative); RBC Negative HPF (0-2); WBC >50 HPF (0-5)
[2023-08-14 19:05] LABS: C & S Indicated? Yes; Casts Negative LPF (Negative)
[2023-08-14] MEDS: cefTRIAXone 2 GM/50 ML BAG IVPB (19:34)
--- NOTE | 2023-08-14 19:44 | NUR.NOTE ---
PT given food and drink for PO challenge. PT ate half a sandwich and 8 oz of tea and is having no nausea or vomiting. Nursing Note:
== END 2023-08-14 20:08 | disposition home or self-care (01) ==
PROVIDERS: Emergency Provider Emergency Medicine; PCP Nurse Practitioner Adult Health
DX: N39.0 Urinary tract infection, site not specified (principal); E86.0 Dehydration; R63.8 Other symptoms and signs concerning food and fluid intake; Z86.69 Personal history of other diseases of the nervous system and sense organs
CPT/HCPCS: 80053; 87077; 96361; 96365; 99283; 81003; 81015; 83735; 85025; 87086; 87186

== ENCOUNTER 2023-10-04 11:59 | Outpatient (CLI) | payer MEDICARE, SELFPAY ==
--- NOTE | 2023-10-04 06:00 | DI.RAD_ITS ---
Exam(s) XR PAIN CLINIC LUMBAR SP 2V EXAM: XR PAIN CLINIC LUMBAR SP 2V CLINICAL HISTORY: Dx: Lumbar Radiculopathy TECHNIQUE: 2D and realtime digital imaging was performed. CONTRAST MATERIAL: Refer to procedure report. COMPARISON: No exams were available for comparison FINDINGS: Fluoroscopy was provided for Dr. Montes during the performance of a epidural steroid injection. Plebrisa e refer to the procedure report for complete details. Ka,r=4.74 mGy IMPRESSION:
[2023-10-04 12:10] VITALS: BP 115/79; PULSE 100; RESP 14; TEMP 36.4; O2SAT 93
[2023-10-04 12:56] VITALS: BP 119/90; PULSE 96; RESP 12; O2SAT 98
[2023-10-04] MEDS: methylPREDNISolone ACETATE 80 MG/ML VIAL IJ (12:58)
[2023-10-04] MEDS: Omnipaque 240 MG/ML 50 ML BTL IJ (12:58)
--- NOTE | 2023-10-04 16:11 | PDOC.PAIN_ITS ---
Date of service: 10/04/23 Time of Service: 13:00 Pain Managment Procedure Note Procedure Note Procedure Note: PROCEDURE NOTE CAUDAL EPIDURAL STEROID INJECTION Date of Service: October 04, 2023 Patient:? Belén Velasquez? Provider:? Raul Sahu DO, MPH Belén Velasquez has been [facility] to the [facility] for caudal epidural steroid injection.? Pre-operative diagnosis: Lumbosacral Radiculopathy Post-operative diagnosis: Same Pre-Procedure Pain: VAS= 7/10. COMMENTS: >3 months of >50% pain relief with her last caudal ROSENDO on 06/17/23. Tonywas interviewed and the medical record was reviewed.? There were no medical, pharmacologic, radiographic or other structural contraindications to attempting fluoroscopically guided epidural steroid injection.? Risks and expected side effects as well as potential benefit of the procedure were reviewed with Tony, and the patient's voiced concerns were addressed.? The printed consent form was signed.? Standard time-out procedure was performed. Tony was placed in the prone position on the fluoroscopy table and automated blood pressure cuff and pulse oximeter applied.? The skin entry point for entering/approaching the epidural space by a caudal approach through the sacral hiatus ed identified with surgical skin marking.? Following thorough chlorhexidine preparation of the skin and draping and 1% lidocaine infiltration of the skin entry point and subcutaneous tissues, a 17 gauge Touhy needle was placed under fluoroscopic guidance? into the epidural space. Needle tip placement and depth were aided and confirmed by fluoroscopy in the lateral and AP position. There was no paresthesia or return of blood or CSF through the needle. 1 cc of Omnipaque 240 was injected with clear epidural spread confirmed with fluoroscopy. An Arrow 19G radio-opaque epidural catheter was advanced into the epidural space to the S1 level and 2 cc of Omnipaque 240 was injected with clear epidural spread. 80 mg of Depo-Medrol was? injected. There was no unusual discomfort expressed by Belén. The needle and catheter were then flushed with 1 cc of 1% Lidocaine and they were removed together without difficulty (49 cc of Omnipaque was wasted). Belén was observed and was without hemodynamic, neurologic, or allergic reactions.? Fluoroscopic images were digitally archived. Belén's vital signs were stable throughout the procedure and were as recorded in the docflowsheet by the nursing staff.? If given, dosages of intravenous drugs for anxiolysis and analgesia were documented in MAR. Follow up plans and appointments were discussed with Belén.? Post procedure instruction was given as documented in nursing documentation and having met discharge criteria, [facility] ? COMMENTS: No apparent complications.? Post-procedure pain: VAS= 0/10. If the patient receives at least 50% improvement in pain and/or function for at least 3 months, this procedure can be repeated. I personally completed the entire procedure. RAUL SAHU DO, MPH ABPM&R - Subspecialty board certification in Pain Medicine [facility]
== END 2023-10-04 12:00 | disposition home or self-care (01) ==
LOC: PC 12:00
PROVIDERS: PCP Nurse Practitioner Adult Health; Visit Provider Preventive Medicine Occupational Medicine
DX: M54.50 Low back pain, unspecified (principal); M54.17 Radiculopathy, lumbosacral region
CPT/HCPCS: 00123; 62323; 72100; J1040; Q9967

== ENCOUNTER → 2023-11-01 12:17 | Outpatient (BNVA) | payer MEDICARE, MEDICAID, SELFPAY | PROVIDERS: PCP Nurse Practitioner Adult Health; Visit Provider Psychiatry & Neurology Neurology | DX: G95.9 Disease of spinal cord, unspecified (principal); R20.2 Paresthesia of skin; R25.2 Cramp and spasm; M48.061 Spinal stenosis, lumbar region without neurogenic claudication; G89.4 Chronic pain syndrome | CPT/HCPCS: 99215 ==

== ENCOUNTER → 2023-11-14 10:24 | Outpatient (BNVA) | payer MEDICARE, MEDICAID, SELFPAY | PROVIDERS: PCP Nurse Practitioner Adult Health; Referring Provider Nurse Practitioner Adult Health; Visit Provider Podiatrist | DX: G62.9 Polyneuropathy, unspecified (principal); B35.1 Tinea unguium; L60.3 Nail dystrophy; M79.671 Pain in right foot; M79.672 Pain in left foot; I73.9 Peripheral vascular disease, unspecified; R20.2 Paresthesia of skin | CPT/HCPCS: 11721 ==

== ENCOUNTER → 2023-11-28 01:19 | Outpatient (CLI) | payer MEDICARE, MEDICAID, SELFPAY ==
--- NOTE | 2023-11-28 | DI.MRI_ITS ---
Exam(s) MR CERVICAL SPINE WO EXAM: MR CERVICAL SPINE WO CLINICAL HISTORY: progressive weakness with known myelomalcia,cervical myelopathy,g95.9 TECHNIQUE: Multiplanar multisequence MRI of the cervical spine was performed without intravenous con trast. COMPARISON: MR MR CERVICAL SPINE WO from 04/17/2020 CR XR CERVICAL SPINE 1V from 01/27/2021 FINDINGS: BONES: Vertebral body heights are maintained. Intervertebral disc spaces are normal. 2-3 mm anterolis thesis of C6 on C7 is noted. Bone marrow signal intensity is within normal limits. Anterior cervical spine and disc surgery is seen from C3 through C6. CERVICAL CORD: Craniovertebral junction is unremarkable. There is high signal seen in the spinal cord posterior to C5 measuring 1.5 cm in length. There is mild decrease in size of the cord at this leve l. There is otherwise normal signal in the spinal cord. There is no evidence of tonsillar ectopia. SOFT TISSUES: Unremarkable. The cervical fusion equipment does cause artifact limiting evaluation of the neural foramen and centr al spinal canal in the cervical spine. C2-3: No disc herniation or bulge is identified. No significant central spinal canal or neural forami nal stenosis. C3-4: No disc herniation or bulge is identified. No significant central spinal canal or neural forami nal stenosis C4-5: No disc herniation or bulge is identified. There is mild narrowing of the central spinal canal at C4-C5. There also appears to be neural foraminal narrowing bilaterally at this level. C5-6: No disc herniation or bulge is identified. No significant central spinal canal stenosis. There does appear to be mild narrowing of the neural foramen at this level, left greater than right. C6-7: No disc herniation or bulge is identified. No significant central spinal canal or neural forami nal stenosis C7-T1: No disc herniation or bulge is identified. No significant central spinal canal or neural maura inal stenosis IMPRESSION: 1. Examination limited by patient motion artifact and anterior cervical disc fusion hardware. 2. Stable myelomalacia in the mid cervical spinal cord with hyperintense T2 signal and thinning of th e cord. 3. Multilevel neural foraminal and central spinal canal narrowing as described above. DATA REPOSITORY:
== END ==
PROVIDERS: PCP Nurse Practitioner Adult Health; Visit Provider Psychiatry & Neurology Neurology
DX: G95.9 Disease of spinal cord, unspecified (principal)
CPT/HCPCS: 72141

== ENCOUNTER → 2023-12-21 04:25 | Outpatient (CLI) | payer MEDICARE, MEDICAID, SELFPAY ==
--- NOTE | 2023-12-21 | DI.MRI_ITS ---
Exam(s) MR LUMBAR SPINE WO/W EXAM: MR LUMBAR SPINE WO/W CLINICAL HISTORY: SPONDYLOLISTHESIS, LUMBAR REGION,M43.16,SPONDYLOSIS,M47.816. TECHNIQUE: Multiplanar multisequence MRI of the Lumbar Spine was performed. CONTRAST MATERIAL: IV Contrast: 10 mL of Dotarem contrast administered. COMPARISON: MR MR LUMBAR SPINE WO/W from 11/02/2022 FINDINGS: Bones: The last intervertebral disc space is designated the L5/S1 level for the numbering purpose of this examination. There has been further decrease in height of the L4 vertebral body. There is grad e 1 anterolisthesis of L3 on L4. There are degenerative endplate signal changes seen at L3-4 and L4-L 5. Cord: The conus tip ends at the T12 level. It is of normal size and signal intensity. T12-L1: No disc herniations or bulges are present. No central spinal canal or neural foraminal stenos is. L1-2: No disc herniations or bulges are present. No central spinal canal or neural foraminal stenosis . L2-3: No disc herniations or bulges are present. No central spinal canal or neural foraminal stenosis . L3-4: There is a diffuse disc bulge. There is degenerative facet arthropathy. There is moderately s evere central spinal canal stenosis. There is marked bilateral neural foraminal stenosis. L4-5: There is a diffuse disc bulge there are degenerative changes of the facets and hypertrophy of t he ligamentum flavum. There is mild narrowing of the central spinal canal. There is moderate right and moderately severe left neural foraminal stenosis. L5-S1: There is a mild diffuse disc bulge. There are hypertrophic changes of the ligamentum flavum. There is mild narrowing of the central spinal canal. No significant neural foraminal stenosis is se en. Soft tissues: The visualized SI joints and sacrum are well maintained. The paraspinal soft tissues ar e unremarkable. There is no evidence of suspicious enhancement. IMPRESSION: 1. Multilevel degenerative changes in the lumbar spine. 2. The findings are marked at L4-5 where there is central spinal canal neural foraminal stenosis. Th ere does appear to be progression of the bilateral neural foraminal stenosis. 3. The degenerative changes are most marked at the L3-L4 level where there is central spinal canal an d marked bilateral neural foraminal stenosis present. This appears stable. DATA REPOSITORY:
[2023-12-21 14:12] LABS: CREATININE 1.1 mg/dL (0.55-1.02); Estimated GFR 53.06 (mL/min/1.73m2)
[2023-12-21] MEDS: Normal Saline Flush 10 ML SYR IVP (14:23)
[2023-12-21] MEDS: Gadoterate meglumine 20 ML SYRINGE 10 ML IVP (14:24)
[2023-12-21 15:51] LABS: Vitamin D 25 Total 69.1 ng/mL (30-100)
== END ==
PROVIDERS: PCP Nurse Practitioner Adult Health; Visit Provider Neurological Surgery
DX: M43.16 Spondylolisthesis, lumbar region (principal); M47.816 Spondylosis without myelopathy or radiculopathy, lumbar region; M81.0 Age-related osteoporosis without current pathological fracture; Z01.812 Encounter for preprocedural laboratory examination
CPT/HCPCS: 72158; 82306; 82565

== ENCOUNTER 2024-01-25 05:08 | Outpatient (CLI) | payer MEDICARE, MEDICAID, SELFPAY ==
[2024-01-25 13:20] LABS: Platelet Count 189 10^3/uL (130-400)
[2024-01-25 13:42] LABS: PTT Activated 28.5 sec (23.6-32.8); Prothrombin Time 10.4 sec (9.1-11.1)
== END 2024-01-25 05:09 | disposition home or self-care (01) ==
LOC: LBO 05:08
PROVIDERS: PCP Nurse Practitioner Adult Health; Visit Provider Student in an Organized Health Care Education/Training Program
DX: M47.12 Other spondylosis with myelopathy, cervical region (principal)
CPT/HCPCS: 36415; 85049; 85610; 85730

== ENCOUNTER → 2024-02-20 13:27 | Outpatient (BNVA) | payer MEDICARE, MEDICAID, SELFPAY | PROVIDERS: PCP Nurse Practitioner Adult Health; Referring Provider Neurological Surgery; Visit Provider Psychiatry & Neurology Neurology | DX: M48.061 Spinal stenosis, lumbar region without neurogenic claudication (principal); G95.9 Disease of spinal cord, unspecified; R20.2 Paresthesia of skin; R25.2 Cramp and spasm; G89.4 Chronic pain syndrome | CPT/HCPCS: 95886; 95908; 99215 ==

== ENCOUNTER → 2024-04-10 13:16 | Outpatient (BNVA) | payer MEDICARE, MEDICAID, SELFPAY | PROVIDERS: PCP Nurse Practitioner Adult Health; Referring Provider Nurse Practitioner Adult Health; Visit Provider Podiatrist | DX: G62.9 Polyneuropathy, unspecified (principal); B35.1 Tinea unguium; L60.3 Nail dystrophy; M79.671 Pain in right foot; M79.672 Pain in left foot; I73.9 Peripheral vascular disease, unspecified; R20.2 Paresthesia of skin | CPT/HCPCS: 11721 ==

== ENCOUNTER 2024-04-17 11:44 | Emergency (ER) | payer MEDICARE, MEDICAID, SELFPAY ==
[2024-04-17 11:54] VITALS: BP 135/74; PULSE 80; RESP 16; TEMP 36.2; O2SAT 95
[2024-04-17 14:37] VITALS: BP 142/75; PULSE 70; RESP 16; TEMP 36.8; O2SAT 98
[2024-04-17 15:05] LABS: Abs Immature Grans 0.03 10^3/uL (0.0-0.06); Absolute Basophil Count 0.04 10^3/uL (0.0-0.2); Absolute Eosinophil Count 0.04 10^3/uL (0.0-0.7); Absolute Lymphocyte Count 1.25 10^3/uL (1.2-3.4); Absolute Monocyte Count 0.49 10^3/uL (0.1-0.8); Absolute Neutrophil Count 6.01 10^3/uL (1.2-6.7); Basophils % 0.5 %; Eosinophils % 0.5 %; HCT 39.1 % (36.0-46.0); HGB 13.3 g/dL (11.2-15.7); Immature Grans % 0.4 %; Lymphocytes % 15.9 %; MCH 31.8 pg (27.0-33.0); MCV 94 fL (80-95); Monocytes % 6.2 %; Neutrophils % 76.5 %; Platelet Count 172 10^3/uL (130-400); RBC 4.18 10^6/uL (3.93-5.22); RDW 13.4 % (11.7-14.6); RDW-SD 46.1 fL; WBC 7.86 10^3/uL (4.4-10.8)
[2024-04-17] MEDS: Normal Saline 1,000 ML 1000 ML IV ×2 (15:05→15:39)
[2024-04-17] MEDS: Ondansetron 4 MG/2 ML VIAL IVP (15:06)
[2024-04-17 15:20] LABS: ALT 16 U/L (14-59); AST 28 U/L (15-37); Albumin 4.1 g/dL (3.4-5.0); Alkaline Phosphatase 80 U/L (46-116); Anion Gap 14.4 mmol/L (3-11); BUN 41 mg/dL (7-18); Bilirubin, Total 0.96 mg/dL (0.2-1.0); CO2 23.6 mmol/L (21.0-32.0); Calcium 9.7 mg/dL (8.5-10.1); Chloride 98 mmol/L (98-107); Estimated GFR 59.12 (mL/min/1.73m2); Glucose 66 mg/dL (74-106); Lipase 36 U/L (16-77); Potassium 4.4 mmol/L (3.5-5.1); Sodium 136 mmol/L (136-145); Total Protein 7.8 g/dL (6.4-8.2)
--- NOTE | 2024-04-17 15:26 | ED.GENADUL_ITS ---
Discharge Plan Disposition Patient Disposition: Home Condition: Stable Discharge Details Clinical Impression: Nausea, Acute UTI Primary Care Provider: Chanel Nelson ED Provider: Jen Yoon Home Meds and New Rx's Prescriptions: New ondansetron 4 mg tablet,disintegrating 4 mg PO Q8H PRNQty: 30 0RF No Action acetaminophen [Tylenol Arthritis Pain] 650 mg tablet extended release 650 mg PO TID PRN ketoconazole 2 % cream 1 applic topical DAILY Qty: 120 6RF Rx Instructions: Apply to toenails once daily duloxetine 60 mg capsule,delayed release(DR/EC) 60 mg PO DAILY Qty: 90 3RF ondansetron 4 mg tablet,disintegrating 4 mg PO DAILY PRN (Reason: nausea and vomiting) Qty: 14 12RF potassium chloride 10 mEq capsule, extended release See Rx Instructions .ROUTE .COMPLEX Qty: 90 3RF Dose Instruction: TAKE 1 CAPSULE EVERY DAY Rx Instructions: TAKE 1 CAPSULE EVERY DAY celecoxib 200 mg capsule See Rx Instructions .ROUTE .COMPLEX Qty: 90 3RF Dose Instruction: TAKE 1 CAPSULE EVERY DAY IN THE MORNING WITH FOOD FOR CHRONIC SPINE PAIN (CERVICAL AND LUMBAR) Rx Instructions: TAKE 1 CAPSULE EVERY DAY IN THE MORNING WITH FOOD FOR CHRONIC SPINE PAIN (CERVICAL AND LUMBAR) spironolactone 25 mg tablet See Rx Instructions .ROUTE .COMPLEX Qty: 90 3RF Dose Instruction: TAKE 1 TABLET EVERY DAY FOR MAGNESIUM WASTING Rx Instructions: TAKE 1 TABLET EVERY DAY FOR MAGNESIUM WASTING cetirizine 10 mg tablet See Rx Instructions .ROUTE .COMPLEX Qty: 180 3RF Dose Instruction: TAKE 1 TABLET ONE TO TWO TIMES PER DAY. TAKE LOWEST EFFECTIVE DOSE Rx Instructions: TAKE 1 TABLET ONE TO TWO TIMES PER DAY. TAKE LOWEST EFFECTIVE DOSE amlodipine 2.5 mg tablet See Rx Instructions .ROUTE .COMPLEX Qty: 90 3RF Dose Instruction: TAKE 1 TABLET EVERY DAY Rx Instructions: TAKE 1 TABLET EVERY DAY pantoprazole 20 mg tablet,delayed release (DR/EC) See Rx Instructions .ROUTE .COMPLEX Qty: 180 3RF Dose Instruction: TAKE 1 TABLET TWICE DAILY FOR REFLUX Rx Instructions: TAKE 1 TABLET TWICE DAILY FOR REFLUX alendronate [Fosamax] 70 mg tablet 70 mg PO QWEEK Qty: 12 3RF Rx Instructions: Take with water 30-min before food/drink/med and avoid lying down for 20 min. Treatment started 2022. mirtazapine 15 mg tablet See Rx Instructions .ROUTE .COMPLEX Qty: 90 3RF Dose Instruction: TAKE 1 TABLET AT BEDTIME (DOSE INCREASE 02/15/24). Rx Instructions: TAKE 1 TABLET AT BEDTIME (DOSE INCREASE 02/15/24). magnesium oxide 400 mg (241.3 mg magnesium) tablet See Rx Instructions .ROUTE .COMPLEX Qty: 90 3RF Dose Instruction: TAKE 1 TABLET EVERY DAY Rx Instructions: TAKE 1 TABLET EVERY DAY pravastatin 40 mg tablet See Rx Instructions .ROUTE .COMPLEX Qty: 90 3RF Dose Instruction: TAKE 1 TABLET EVERY DAY Rx Instructions: TAKE 1 TABLET EVERY DAY pregabalin 225 mg capsule 225 mg PO BID Qty: 180 3RF Discharge Instructions Instructions: Urinary Tract Infection, Adult ED Additional Instructions: * You have a urinary tract infection. You received a single dose of antibiotics in the emergency department which will treat your infection. * You were provided with Zofran to go home with an additional Zofran was sent to your pharmacy so that you can have some at home for future nausea. * try to increase oral intake and advance diet slowly. Follow-up with your primary care doctor or return to the emergency department if you are having lack of improvement in your symptoms or worsening symptoms. Discharge Data Discharge Date/Time-TO BE ENTERED AT DEPARTURE: 04/17/24 17:17 HPI General Date/Time Provider Initiated Documentation: 04/17/24 11:57 . Limitations to Documentation: no limitations . Information obtained by: patient . HPI Narrative: 74-year-old female with past medical history of chronic pain, hypertension, depression presents for evaluation of nausea. Reports onset of symptoms today. Not associated with vomiting or diarrhea. States that she is try to drink water, but otherwise has not had anything else to eat or drink today. She states that she usually takes Zofran when she feels this way, but she was out of the medication. She denies any sick contacts. She reports that she felt so bad today that she did not feed her dogs or her cat. She states that she also has noted these little red dots on her legs and she was not sure if she had measles. Related Data Home Medications ?Medication ?Instructions ?Recorded ?Confirmed acetaminophen 650 mg 650 mg PO TID PRN 02/08/23 04/17/24 tablet,extended release (Tylenol Arthritis Pain) celecoxib 200 mg capsule See Rx Instructions .Route 05/15/23 04/17/24 .COMPLEX #90 caps potassium chloride 10 mEq See Rx Instructions .Route 05/15/23 04/17/24 capsule,extended release .COMPLEX #90 caps cetirizine 10 mg tablet See Rx Instructions .Route 08/10/23 04/17/24 .COMPLEX #180 tabs spironolactone 25 mg tablet See Rx Instructions .Route 08/10/23 04/17/24 .COMPLEX #90 tabs amlodipine 2.5 mg tablet See Rx Instructions .Route 08/23/23 04/17/24 .COMPLEX #90 tabs ketoconazole 2 % topical cream 1 applic topical DAILY #120 grams 11/14/23 04/17/24 alendronate 70 mg tablet (Fosamax) 70 mg PO QWEEK #12 tabs 01/31/24 04/17/24 pantoprazole 20 mg tablet,delayed See Rx Instructions .Route 01/31/24 04/17/24 release .COMPLEX #180 tabs ondansetron 4 mg disintegrating 4 mg PO DAILY PRN nausea and 02/15/24 04/17/24 tablet vomiting #14 tabs duloxetine 60 mg capsule,delayed 60 mg PO DAILY #90 caps 02/20/24 04/17/24 release mirtazapine 15 mg tablet See Rx Instructions .Route 03/27/24 04/17/24 .COMPLEX #90 tabs magnesium oxide 400 mg (241.3 mg See Rx Instructions .Route 03/30/24 04/17/24 magnesium) tablet .COMPLEX #90 tabs pravastatin 40 mg tablet See Rx Instructions .Route 04/10/24 04/17/24 .COMPLEX #90 tabs pregabalin 225 mg capsule 225 mg PO BID #180 caps 04/15/24 04/17/24 ondansetron 4 mg disintegrating 4 mg PO Q8H PRN #30 tabs 04/17/24 tablet Previous Rx's ?Medication ?Instructions ?Recorded celecoxib 200 mg capsule See Rx Instructions .Route 05/15/23 .COMPLEX #90 caps potassium chloride 10 mEq See Rx Instructions .Route 05/15/23 capsule,extended release .COMPLEX #90 caps cetirizine 10 mg tablet See Rx Instructions .Route 08/10/23 .COMPLEX #180 tabs spironolactone 25 mg tablet See Rx Instructions .Route 08/10/23 .COMPLEX #90 tabs amlodipine 2.5 mg tablet See Rx Instructions .Route 08/23/23 .COMPLEX #90 tabs ketoconazole 2 % topical cream 1 applic topical DAILY #120 grams 11/14/23 alendronate 70 mg tablet (Fosamax) 70 mg PO QWEEK #12 tabs 01/31/24 pantoprazole 20 mg tablet,delayed See Rx Instructions .Route 01/31/24 release .COMPLEX #180 tabs ondansetron 4 mg disintegrating 4 mg PO DAILY PRN nausea and 02/15/24 tablet vomiting #14 tabs duloxetine 60 mg capsule,delayed 60 mg PO DAILY #90 caps 02/20/24 release mirtazapine 15 mg tablet See Rx Instructions .Route 03/27/24 .COMPLEX #90 tabs magnesium oxide 400 mg (241.3 mg See Rx Instructions .Route 03/30/24 magnesium) tablet .COMPLEX #90 tabs pravastatin 40 mg tablet See Rx Instructions .Route 04/10/24 .COMPLEX #90 tabs pregabalin 225 mg capsule 225 mg PO BID #180 caps 04/15/24 ondansetron 4 mg disintegrating 4 mg PO Q8H PRN #30 tabs 04/17/24 tablet Allergies Allergy/AdvReac Type Severity Reaction Status Date / Time ciprofloxacin Allergy Other (See Verified 04/17/24 11:58 Comment) codeine AdvReac Intermediate Nausea Verified 04/17/24 11:58 nitrofurantoin AdvReac Intermediate bloating, Verified 04/17/24 11:58 weakness hydrochlorothiazide AdvReac Mild hypomagnese Verified 04/17/24 11:58 pop narcotics AdvReac Intermediate Nausea, Uncoded 04/17/24 11:58 vomiting General Stated Complaint: GenMedical ROSENDO: 4 Exam Narrative Exam Narrative: Review of Systems: All systems reviewed & are unremarkable except as noted in HPI and below thin, chronically ill appearing, no acute distress NCAT PERRL, normal conjunctiva dry mucus membranes RRR, no murmur Unlabored respiratory effort CTAB Nondistended abdomen soft, no gaurding or rebound Extremities w/o deformity, no cyanosis, no edema occasional punctate red lesions, no diffuse rash, no evidence of petechial rash no focal neurologic deficits Appropriate mood and affect Course Vital Signs Vital signs: Vital Signs Temperature 36.2 C L 04/17/24 11:54 Pulse 80 04/17/24 11:54 Respiratory Rate 16 04/17/24 11:54 Blood Pressure 135/74 04/17/24 11:54 Pulse Oximetry 95 04/17/24 11:54 Temperature 36.8 C 04/17/24 14:37 Temperature Source Temporal Artery Scan 04/17/24 11:54 Pulse 70 04/17/24 14:37 Respiratory Rate 16 04/17/24 14:37 Respiratory Effort Normal 04/17/24 14:37 Blood Pressure 142/75 H 04/17/24 14:37 Blood Pressure Position Sitting 04/17/24 11:54 Pulse Oximetry 98 04/17/24 14:37 Oxygen Delivery Method Room Air 04/17/24 11:54 Oxygen Flow Rate 0 04/17/24 11:54 Pain Level 0 04/17/24 14:37 Lab/Test Results Lab/Test Results: Laboratory Tests Range/Units 04/17/24 15:00 WBC (4.4-10.8) 10^3/uL 7.86 RBC (3.93-5.22) 10^6/uL 4.18 Hgb (11.2-15.7) g/dL 13.3 Hct (36.0-46.0) % 39.1 MCV (80-95) fL 94 MCH (27.0-33.0) pg 31.8 MCHC (32.0-36.0) % 34.0 RDW (11.7-14.6) % 13.4 Plt Count (130-400) 10^3/uL 172 MPV (8.0-11.0) fL 12.0 H Immature Gran % % 0.4 Neutrophils % % 76.5 Lymphocytes % % 15.9 Monocytes % % 6.2 Eosinophils % % 0.5 Basophils % % 0.5 Nucleated RBC % (0.0-0.3) % 0.0 Absolute Neutrophils (1.2-6.7) 10^3/uL 6.01 Absolute Lymphocytes (1.2-3.4) 10^3/uL 1.25 Absolute Monocytes (0.1-0.8) 10^3/uL 0.49 Absolute Eosinophils (0.0-0.7) 10^3/uL 0.04 Absolute Basophils (0.0-0.2) 10^3/uL 0.04 Sodium (136-145) mmol/L 136 Potassium (3.5-5.1) mmol/L 4.4 Chloride (98-107) mmol/L 98 Carbon Dioxide (21.0-32.0) mmol/L 23.6 Anion Gap (3-11) mmol/L 14.4 H BUN (7-18) mg/dL 41 H Creatinine (0.55-1.02) mg/dL 1.0 Est GFR (CKD-EPI 2020) (mL/min/1.73m2) 59.12 Glucose (74-106) mg/dL 66 L Calcium (8.5-10.1) mg/dL 9.7 Total Bilirubin (0.2-1.0) mg/dL 0.96 AST (15-37) U/L 28 ALT (14-59) U/L 16 Alkaline Phosphatase (46-116) U/L 80 Total Protein (6.4-8.2) g/dL 7.8 Albumin (3.4-5.0) g/dL 4.1 Lipase (16-77) U/L 36 Medical Decision Making Emergent evaluation of nausea. Initial differential includes viral illness, electrolyte derangement, dehydration. Doubt acute intra-abdominal process given the lack of vomiting and a benign abdominal exam. The patient is chronically ill-appearing, but I do find it significant that she did not feel well enough to even feed her Today. Will check for signs of infectious etiology, lab work and resuscitate with IV fluids and provide antiemetics. Lab work reviewed. She does not have elevated white blood count. No anemia. No thrombocytopenia to indicate that the red spots or petechial rash. She has a slight elevation in BUN and anion gap, but renal function is normal. She was resuscitated with IV fluids for the subtle signs of dehydration. Her glucose is slightly low at 66 and she was provided juice to treat her hypoglycemia. Her urinalysis was reviewed and it demonstrates signs of infection. A culture was sent. She was given single dose fosfomycin to treat her urinary tract infection. She was provided with additional Zofran to take at home. At this time she is tolerating p.o. and feels much better after fluid resuscitation. Recommend close follow-up with PCP and return precautions were discussed with the patient Medical Records Medical records reviewed: Yes I reviewed the patient's medical records. Lab Data Lab results reviewed: Yes I reviewed the patient's lab results. Quality:SDOH Health Related Social Needs: No Data to Display PFSH All Active Problems (Updated 04/17/24 @ 17:01 by Jen Yoon MD) Acute UTI (Acute) Nausea (Acute) Advanced care planning/counseling discussion (Acute) Palliative care encounter (Acute) Weight loss (Acute) PVD (peripheral vascular disease) (Chronic) Pain in both feet (Acute) Onychomycosis (Acute) High risk for fracture due to osteoporosis by DEXA scan (Acute ~03/2023) RX Fosamax Poor manual dexterity (Acute) Lung nodule seen on imaging study (Acute ~10/2022) Annual LDCT Impaired gait and mobility (Acute) Chronic pain (Chronic) Due to OA shoulders, knees, Spinal stenosis. 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 [place] Neurology Essential hypertension (Acute 02/26/13) [place] cardiac risk >20% in next 10 years (Chronic) 2020: 32% Magnesium-losing nephropathy (Chronic) very mild; tx spironolactone GERD (gastroesophageal reflux disease) (Chronic) Depression (Chronic 07/01/14) Medical marijuana use (Chronic) Arthritis of left glenohumeral joint (Chronic ~07/01/14) Medical History Abnormal weight loss Urothelial carcinoma of bladder (~2016) [facility] Urology CHF exacerbation Acute cystitis Pneumonia Acute UTI Weakness Acute UTI Anemia Smoker Unintentional weight loss Leg edema Delayed gastric emptying mild Hyperlipidemia Neuropathy Sessile colonic polyp (03/14/18) Osteopenia (12/14/11) Osteoporosis wrist, osteopenia hip, normal bone density of spine 2017 osteopenia 2011 Adhesive capsulitis of left shoulder Injected 12/11/2018 Spinal stenosis Hx of bacterial pneumonia Surgical History H/O laminectomy (~06/2021) APD-L3-L4 laminectomy, medial fa for decompression of stenosis, lateral disectomy [id number] Cervical spondylosis 11/03/20 C5-[address] Everett Cardoza 11/04/20 D/C'd home Status post shoulder hemiarthroplasty History of hemiarthroplasty of left shoulder 09/07/2015 H/O cystoscopy (09/06/18) w/transurethral resection of bladder tumors-Dr Wiggins Tenotomy and debridement tendon L shoulder (10/25/17) Rotator Cuff Repair Repair of umbilical hernia Hemiarthroplasty (09/07/15) L shoulder Dr Luz Colonoscopy - MAC (03/12/18) Colon,transverse,polyp,biopsy - fragment of sessile serrated adenoma. (Dr Neely) Breast, Lumpectomy Arthroplasty of knee Per patient she has not had a TOTAL KNEE Anterior Fusion Cervical Spine C3-C5 (07/31/16) Jul 2016, [facility] [place] Dr. Martinez Family History Father Essential hypertension Glaucoma Alzheimer's dementia Social History Smoking/Tobacco Use Status: Former Tobacco Use Smoking risk assessment performed?: Yes Alcohol Intake: former Substance use type: marijuana Details: marijuana: uses qd Last used Monday09/30/23 Household members: none Housing: house Number of Children: 0 Pets and animals: Yes Pets and animals: cat(s) and dog(s) Current gender identity: female What type of physical activity do you participate in: none and other Details: PT 2 xweek Frequency: 1-2 times per week Seatbelt use: always Drive intox or ride w/intox 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
[2024-04-17 15:29] VITALS: BP 120/72; PULSE 70; RESP 16
[2024-04-17 16:20] VITALS: BP 115/74; PULSE 74; RESP 16; TEMP 36.8; O2SAT 98
[2024-04-17 16:23] LABS: Bilirubin Negative (Negative); Blood Trace-intact (Negative); Clarity Clear (Clear); Glucose Negative (Negative); Ketones 40 mg/dL (Negative); Leukocyte Esterase Moderate (Negative); Nitrite Positive (Negative); Specific Gravity 1.025 (1.005-1.025); Urobilinogen 0.2 mg/dL (Up to 0.2); pH 5.5 (5-8)
[2024-04-17 16:32] LABS: Bacteria Many HPF (Negative); C & S Indicated? Yes; Casts 0-2 Hyaline LPF (Negative); Crystals Negative HPF (Negative); Epithelial Cells Rare HPF (Negative); Mucus Negative (Negative); Other Cells Rare Transitional (Negative); RBC 0-2 HPF (0-2); WBC 20-50 HPF (0-5)
[2024-04-17] MEDS: Fosfomycin Tromethamine 3 GM PACKET PO (17:12)
[2024-04-17] MEDS: Ondansetron O.D.T. 4 MG TABEF, 3 TABS/BTL PO (17:13)
== END 2024-04-17 17:17 | disposition home or self-care (01) ==
PROVIDERS: Emergency Provider Emergency Medicine; PCP Nurse Practitioner Adult Health
DX: N39.0 Urinary tract infection, site not specified (principal); R11.0 Nausea
CPT/HCPCS: 36416; 80053; 82962; 83690; 87077; 96361; 96374; 99284; 81003; 81015; 85025; 87086; 87186; 99283; J2405; J3490

== ENCOUNTER → 2024-04-30 14:34 | Outpatient (BNVA) | payer MEDICARE, MEDICAID, SELFPAY | PROVIDERS: PCP Nurse Practitioner Adult Health; Referring Provider Nurse Practitioner Adult Health; Visit Provider Psychiatry & Neurology Neurology | DX: G95.9 Disease of spinal cord, unspecified (principal); R20.2 Paresthesia of skin; R25.2 Cramp and spasm; M48.061 Spinal stenosis, lumbar region without neurogenic claudication; G89.4 Chronic pain syndrome | CPT/HCPCS: 99443 ==

== ENCOUNTER 2024-05-15 12:28 | Outpatient (REF) | payer MEDICARE, MEDICAID, SELFPAY ==
[2024-05-15 16:28] LABS: Anion Gap 9.7 mmol/L (3-11); BUN 25 mg/dL (7-18); CO2 24.3 mmol/L (21.0-32.0); Calcium 9.1 mg/dL (8.5-10.1); Calculated LDL 88 mg/dL (<100); Chloride 101 mmol/L (98-107); Cholesterol 147 mg/dL (<200); Estimated GFR 59.12 (mL/min/1.73m2); Glucose 86 mg/dL (74-106); HDL Cholesterol 32 mg/dL (40-60); Magnesium 1.8 mg/dL (1.8-2.4); Potassium 5.4 mmol/L (3.5-5.1); Sodium 135 mmol/L (136-145); TSH (W/Ref FT4) 6.45 uIU/mL (0.36-3.74); Triglyceride 136 mg/dL (<150)
[2024-05-15 16:58] LABS: FREE T4 0.83 ng/dL (0.76-1.46)
[2024-05-16 11:15] LABS: Prealbumin 25 mg/dL (20-40)
== END 2024-05-15 12:29 | disposition home or self-care (01) ==
LOC: LBN 12:28
PROVIDERS: PCP Nurse Practitioner Adult Health; Visit Provider Nurse Practitioner Adult Health
DX: R63.4 Abnormal weight loss (principal); N25.89 Other disorders resulting from impaired renal tubular function; E78.5 Hyperlipidemia, unspecified; F32.9 Major depressive disorder, single episode, unspecified; M81.0 Age-related osteoporosis without current pathological fracture; G89.4 Chronic pain syndrome; M48.061 Spinal stenosis, lumbar region without neurogenic claudication; M54.16 Radiculopathy, lumbar region
CPT/HCPCS: 80048; 80061; 83735; 84134; 84439; 84443

== ENCOUNTER 2024-06-05 03:44 | Outpatient (CLI) | payer MEDICARE, MEDICAID, SELFPAY ==
[2024-06-05 12:06] LABS: Anion Gap 5.7 mmol/L (3-11); BUN 16 mg/dL (7-18); CO2 25.3 mmol/L (21.0-32.0); CREATININE 0.9 mg/dL (0.55-1.02); Chloride 102 mmol/L (98-107); Estimated GFR 67.08 (mL/min/1.73m2); Glucose 84 mg/dL (74-106); Sodium 133 mmol/L (136-145)
== END 2024-06-05 03:45 | disposition home or self-care (01) ==
LOC: LBO 03:44
PROVIDERS: PCP Nurse Practitioner Adult Health; Visit Provider Nurse Practitioner Adult Health
DX: E87.6 Hypokalemia (principal)
CPT/HCPCS: 36415; 80048

== ENCOUNTER → 2024-08-27 15:21 | Outpatient (BNVA) | payer MEDICARE, MEDICAID, SELFPAY | PROVIDERS: PCP Nurse Practitioner Adult Health; Referring Provider Nurse Practitioner Adult Health; Visit Provider Podiatrist | DX: L60.3 Nail dystrophy (principal); B35.1 Tinea unguium; M79.671 Pain in right foot; M79.672 Pain in left foot; I73.89 Other specified peripheral vascular diseases; G62.9 Polyneuropathy, unspecified; R09.89 Other specified symptoms and signs involving the circulatory and respiratory systems; R20.8 Other disturbances of skin sensation | CPT/HCPCS: 11721 ==

== ENCOUNTER → 2024-12-24 09:29 | Outpatient (BNVA) | payer MEDICARE, MEDICAID, SELFPAY | PROVIDERS: PCP Nurse Practitioner Adult Health; Referring Provider Nurse Practitioner Adult Health; Visit Provider Urology | DX: Z85.51 Personal history of malignant neoplasm of bladder (principal) | CPT/HCPCS: 52000 ==

== ENCOUNTER 2025-03-07 17:24 | Emergency (ER) | payer MEDICARE, MEDICAID, SELFPAY ==
[2025-03-07 17:25] VITALS: BP 155/76; PULSE 80; RESP 14; TEMP 36.7; O2SAT 94
--- NOTE | 2025-03-07 17:40 | W.ED.GENAD ---
Discharge Plan Disposition Patient Disposition: Home Condition: Stable Discharge Details Clinical Impression: Facial bruising, Skin tear of left forearm without complication Primary Care Provider: Chanel Nelson ED Provider: Walter Myers Home Meds and New Rx's Prescriptions: Continued acetaminophen [Tylenol Arthritis Pain] 650 mg tablet extended release 650 mg PO BID PRN ketoconazole 2 % cream 1 applic topical DAILY Qty: 120 6RF Rx Instructions: Apply to toenails once daily simethicone [Gas Relief (simethicone)] 80 mg tablet,chewable 80 mg PO TID-QID PRN (Reason: abdominal distention) Qty: 40 0RF Rx Instructions: Bloating, bubbling/gas in abdomen ondansetron 4 mg tablet,disintegrating 4 mg PO DAILY PRN (Reason: nausea and vomiting) Qty: 40 12RF ibuprofen 200 mg capsule 200 mg PO BID PRN magnesium oxide 400 mg (241.3 mg magnesium) tablet See Rx Instructions .ROUTE .COMPLEX Qty: 90 3RF Dose Instruction: TAKE 1 TABLET EVERY DAY Rx Instructions: TAKE 1 TABLET EVERY DAY spironolactone 25 mg tablet See Rx Instructions .ROUTE .COMPLEX Qty: 90 3RF Dose Instruction: TAKE 1 TABLET EVERY DAY FOR MAGNESIUM WASTING Rx Instructions: TAKE 1 TABLET EVERY DAY FOR MAGNESIUM WASTING cetirizine 10 mg tablet See Rx Instructions .ROUTE .COMPLEX Qty: 180 3RF Dose Instruction: TAKE 1 TABLET ONE TO TWO TIMES PER DAY. TAKE LOWEST EFFECTIVE DOSE Rx Instructions: TAKE 1 TABLET ONE TO TWO TIMES PER DAY. TAKE LOWEST EFFECTIVE DOSE amlodipine 2.5 mg tablet See Rx Instructions .ROUTE .COMPLEX Qty: 90 3RF Dose Instruction: TAKE 1 TABLET EVERY DAY Rx Instructions: TAKE 1 TABLET EVERY DAY pantoprazole 20 mg tablet,delayed release (DR/EC) See Rx Instructions .ROUTE .COMPLEX Qty: 180 3RF Dose Instruction: TAKE 1 TABLET TWICE DAILY FOR REFLUX Rx Instructions: TAKE 1 TABLET TWICE DAILY FOR REFLUX duloxetine 60 mg capsule,delayed release(DR/EC) 60 mg PO DAILY Qty: 90 3RF pravastatin 40 mg tablet See Rx Instructions .ROUTE .COMPLEX Qty: 90 3RF Dose Instruction: TAKE 1 TABLET EVERY DAY Rx Instructions: TAKE 1 TABLET EVERY DAY pregabalin 225 mg capsule 225 mg PO BID Qty: 60 0RF Rx Instructions: Dose increase back to baseline Neuro dosing 10/10/2024 mirtazapine 30 mg tablet 30 mg PO QHS Qty: 90 3RF celecoxib 200 mg capsule See Rx Instructions .ROUTE .COMPLEX Qty: 90 3RF Dose Instruction: TAKE 1 CAPSULE EVERY DAY IN THE MORNING WITH FOOD FOR CHRONIC SPINE PAIN (CERVICAL AND LUMBAR) Rx Instructions: TAKE 1 CAPSULE EVERY DAY IN THE MORNING WITH FOOD FOR CHRONIC SPINE PAIN (CERVICAL AND LUMBAR) potassium chloride 10 mEq capsule, extended release See Rx Instructions .ROUTE .COMPLEX Qty: 90 3RF Dose Instruction: TAKE 1 CAPSULE EVERY DAY Rx Instructions: TAKE 1 CAPSULE EVERY DAY Discharge Instructions Instructions: Minor Contusion ED, Wound Care ED Additional Instructions: You were seen in the emergency department for your traumatic skin tear of your left forearm and minor facial bruising from your fall, there is no fracture in your face, the skin tear was repaired by Steri-Strip and covered with specialized dressings, please change her dressing in 24 to 36 hours, after that just keep the wound area clean and dry, watch for signs of infection like redness, red streaking up the arm, increase in swelling, drainage of pus from the area, fever, return for emergent concerns. Referrals: Chanel Nelson NP [Primary Care Provider, Medicine] Discharge Data Discharge Date/Time-TO BE ENTERED AT DEPARTURE: 03/07/25 18:33 HPI General Date/Time Provider Initiated Documentation: 03/07/25 17:40. HPI Narrative: 75 year-old female presents to ED today by POV with a chief complaint of fall earlier today around 1700- injury to L face/orbit and L arm with minor skin tear. Quality described as orbit feels painful, states skin tear does not hurt, no radiation to LOC, nausea/vomiting, altered mentation, slurred speech, hip or back pain, urinary incontinence, numbness/tingling, weakness. Severity is described as mild to moderate. Palliating factors include nothing specific attempted. Provoking factors include nothing specific. Patient not anticoagulated. Related Data Home Medications ?Medication ?Instructions ?Recorded ?Confirmed ketoconazole 2 % topical cream 1 applic topical DAILY #120 grams 11/14/23 03/07/25 magnesium oxide 400 mg (241.3 mg See Rx Instructions .Route 03/30/24 03/07/25 magnesium) tablet .COMPLEX #90 tabs cetirizine 10 mg tablet See Rx Instructions .Route 05/29/24 03/07/25 .COMPLEX #180 tabs spironolactone 25 mg tablet See Rx Instructions .Route 05/29/24 03/07/25 .COMPLEX #90 tabs amlodipine 2.5 mg tablet See Rx Instructions .Route 06/13/24 03/07/25 .COMPLEX #90 tabs simethicone 80 mg chewable tablet 80 mg PO TID-QID PRN abdominal 07/03/24 03/07/25 (Gas Relief (simethicone)) distention #40 tabs ondansetron 4 mg disintegrating 4 mg PO DAILY PRN nausea and 07/29/24 03/07/25 tablet vomiting #40 tabs pantoprazole 20 mg tablet,delayed See Rx Instructions .Route 11/06/24 03/07/25 release .COMPLEX #180 tabs duloxetine 60 mg capsule,delayed 60 mg PO DAILY #90 caps 12/12/24 03/07/25 release pravastatin 40 mg tablet See Rx Instructions .Route 01/20/25 03/07/25 .COMPLEX #90 tabs pregabalin 225 mg capsule 225 mg PO BID #60 caps 02/04/25 03/07/25 mirtazapine 30 mg tablet 30 mg PO QHS #90 tabs 02/05/25 03/07/25 acetaminophen 650 mg 650 mg PO BID PRN 02/18/25 03/07/25 tablet,extended release (Tylenol Arthritis Pain) ibuprofen 200 mg capsule 200 mg PO BID PRN 02/18/25 03/07/25 celecoxib 200 mg capsule See Rx Instructions .Route 02/24/25 03/07/25 .COMPLEX #90 caps potassium chloride 10 mEq See Rx Instructions .Route 02/24/25 03/07/25 capsule,extended release .COMPLEX #90 caps Previous Rx's ?Medication ?Instructions ?Recorded ketoconazole 2 % topical cream 1 applic topical DAILY #120 grams 11/14/23 magnesium oxide 400 mg (241.3 mg See Rx Instructions .Route 03/30/24 magnesium) tablet .COMPLEX #90 tabs cetirizine 10 mg tablet See Rx Instructions .Route 05/29/24 .COMPLEX #180 tabs spironolactone 25 mg tablet See Rx Instructions .Route 05/29/24 .COMPLEX #90 tabs amlodipine 2.5 mg tablet See Rx Instructions .Route 06/13/24 .COMPLEX #90 tabs simethicone 80 mg chewable tablet 80 mg PO TID-QID PRN abdominal 07/03/24 (Gas Relief (simethicone)) distention #40 tabs ondansetron 4 mg disintegrating 4 mg PO DAILY PRN nausea and 07/29/24 tablet vomiting #40 tabs pantoprazole 20 mg tablet,delayed See Rx Instructions .Route 11/06/24 release .COMPLEX #180 tabs duloxetine 60 mg capsule,delayed 60 mg PO DAILY #90 caps 12/12/24 release pravastatin 40 mg tablet See Rx Instructions .Route 01/20/25 .COMPLEX #90 tabs pregabalin 225 mg capsule 225 mg PO BID #60 caps 02/04/25 mirtazapine 30 mg tablet 30 mg PO QHS #90 tabs 02/05/25 celecoxib 200 mg capsule See Rx Instructions .Route 02/24/25 .COMPLEX #90 caps potassium chloride 10 mEq See Rx Instructions .Route 02/24/25 capsule,extended release .COMPLEX #90 caps Allergies Allergy/AdvReac Type Severity Reaction Status Date / Time ciprofloxacin Allergy Other (See Verified 03/07/25 17:31 Comment) codeine AdvReac Intermediate Nausea Verified 03/07/25 17:31 nitrofurantoin AdvReac Intermediate bloating, Verified 03/07/25 17:31 weakness oxycodone AdvReac Intermediate GI issues Verified 03/07/25 17:31 hydrochlorothiazide AdvReac Mild hypomagnese Verified 03/07/25 17:31 pop narcotics AdvReac Intermediate Nausea, Uncoded 03/07/25 17:31 vomiting General Stated Complaint: Fall/Non TraumaCriteria ROSENDO: 3 Review of Systems All systems reviewed & are unremarkable except as noted in HPI and below Exam Narrative Exam Narrative: GENERAL APPEARANCE: Well-nourished, non-toxic, awake and alert, atraumatic, no acute distress. SKIN: Warm, pink, dry, triangular-shaped 3 cm skin tear to the left dorsal forearm, neurovascular intact distal, no active bleeding, able to supinate pronate, no tenderness to the left upper extremity HEAD: Normocephalic, atraumatic, normal hair distribution for gender/age. EYES: Normal conjunctiva, no exudates on lids/lashes, no hyphema, EOMs intact without nystagmus ENT: Nares patent, no circumoral cyanosis, no facial swelling, mild bruise without crepitus to L orbital area NECK: Supple, trachea midline, painless cervical ROM, no midline cervical vertebral tenderness. LUNGS/CHEST: Lungs CTA bilaterally- no rhonchi/rales/wheezes diffusely, non-labored respirations, normal A/P diameter, symmetrical expansion, no chest wall deformity HEART (CV/PV): Regular rate and rhythm without murmur, no peripheral edema, no JVD. ABDOMEN: Soft, non-distended, no guarding, no tenderness. MSK: Normal ROM, no swelling/deformity to bilateral UEs or LEs, moving all extremities without weakness, no cyanosis, spine midline without tenderness, normal curvature. NEURO: Mental Status AAOx4 - alert to person, place, time, events No facial droop, no forehead involvement. Motor: No focal weakness - strength 5/5 in bilateral UEs and LEs, proximal and distal, symmetric. Sensory: sensation intact to light touch globally. Gait normal: patient ambulated without ataxia into ED room. PSYCH: euthymic, cooperative, pleasant, appropriate speech Course Vital Signs Vital signs: Vital Signs Temperature 36.7 C 03/07/25 17:25 Pulse 80 03/07/25 17:25 Respiratory Rate 14 03/07/25 17:25 Blood Pressure 155/76 H 03/07/25 17:25 Pulse Oximetry 94 03/07/25 17:25 Temperature 36.7 C 03/07/25 17:25 Temperature Source Oral 03/07/25 17:25 Pulse 80 03/07/25 17:25 Respiratory Rate 14 03/07/25 17:25 Blood Pressure 155/76 H 03/07/25 17:25 Blood Pressure Position Sitting 03/07/25 17:25 Pulse Oximetry 94 03/07/25 17:25 Oxygen Delivery Method Room Air 03/07/25 17:25 Oxygen Flow Rate 0 03/07/25 17:25 Pain Level 3 03/07/25 17:25 Procedure Laceration Laceration 1: Provider that performed the procedure: Walter Myers Standard Time Out Performed: No Patient Consented: Verbally Site: upper extremity Side (If applicable): left Description: stellate and clean Depth: simple, single layer Skin layer closed with: other (Steri-strip x2) Complications: None Medical Decision Making This dictation utilizes [id number] dictation software and may contain unedited grammatical errors. 75 year-old female presents to ED today by POV with a chief complaint of fall earlier today around 1700- injury to L face/orbit and L arm with minor skin tear. Quality described as orbit feels painful, states skin tear does not hurt, no radiation to LOC, nausea/vomiting, altered mentation, slurred speech, hip or back pain, urinary incontinence, numbness/tingling, weakness. Severity is described as mild to moderate. Palliating factors include nothing specific attempted. Provoking factors include nothing specific. Patients' medical history: Leg edema, osteopenia, CHF, anemia, hyperlipidemia, neuropathy, cervical fusion, peripheral vascular disease, hypertension. Family and social history: Denies EtOH use, otherwise noncontributory. Pertinent exam findings / vital signs include mild bruising to the left orbital area, a triangular-shaped 3 cm skin tear to the left dorsal forearm, neurovascular intact distal, no active bleeding, able to supinate pronate, no tenderness to the left upper extremity. Differential / pathologies of concern include orbital fracture, skin tear, unlikely upper extremity fracture. Diagnostic studies of: -CT facial bones without contrast shows no acute fracture. Interventions of: -Steri-Strip repair of the patient's left forearm skin tear dressed with Xeroform, nonstick and gauze wrap. ED Course/Assessment/Plan: 75-year-old female suffered a minor fall at home around 1700, has left orbital pain with a mild bruise, EOMs intact and no sign of significant globe trauma, no crepitus to the orbit CT negative for fracture, has an incidental skin tear on the left forearm with no tenderness to supination pronation is neurovascular intact distal with no active bleeding, I did perform a Steri-Strip repair of the skin tear as the skin was very delicate and I think that sutures would damage it further and potentially rip more of the flap apart. Counseled on keeping the wound clean and dry and changing the Xeroform out in about 48 hours to just a normal nonstick dressing and gauze wrap, strict return criteria for any neurologic abnormalities, further falls or any other emergent concern. Findings not consistent with orbital fracture, head strike or LOC of any significance, wound infection or foreign body. Disposition of Facial bruising, skin tear of left forearm without complication. Patient verbalized understanding of the plan and return to ED criteria and engaged in shared decision making. Medical Records Medical records reviewed: Yes I reviewed the patient's medical records. Imaging Data Radiologic Study: Attestation: I personally reviewed and interpreted this imaging study as follows: Imaging: CT Scan Radiologist's impression: EXAM: CT FACIAL WO CLINICAL HISTORY: L orbital pain; fall. TECHNIQUE: Imaging Protocol: Axial computed tomography images with coronal and sagittal reformatted images were created and reviewed. No IV contrast COMPARISON: No exams were available for comparison FINDINGS: MAXILLOFACIAL CT SCAN: There is a fluid level in the right maxillary sinus. There is no obvious fracture of the sinus wall there is no evidence of orbital blowout fracture. Left maxillary sinus appears unremarkable as do the other paranasal sinuses and mastoid air cells. No evidence of nasal bone fracture. Multilevel fusion hardware is noted in the cervical spine. No evidence of mandible fracture. TM joints appear unremarkable. IMPRESSION: No evidence of facial bone fractures nor orbital fractures. Small fluid level noted in the right maxillary sinus. No obvious sinus fracture and no bone dehiscence. Report called by myself to ER provider 03/07/2025 at 6:12 p.m. [facility] All Active Problems (Updated 03/07/25 @ 18:23 by MILTON Cool) Skin tear of left forearm without complication (Acute) Facial bruising (Acute) History of bladder cancer (Acute) Superficial Bladder CA, yearly cysto for surveillance. Dr. Wiggins Advanced care planning/counseling discussion (Acute) Palliative care encounter (Acute) Weight loss (Acute) PVD (peripheral vascular disease) (Chronic) Pain in both feet (Acute) Onychomycosis (Acute) High risk for fracture due to osteoporosis by DEXA scan (Acute ~03/2023) RX Fosamax Poor manual dexterity (Acute) Lung nodule seen on imaging study (Acute ~10/2022) Annual LDCT Impaired gait and mobility (Acute) Chronic pain (Chronic) Due to OA shoulders, knees, Spinal stenosis. 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/03/16 Cervical myelopathy (Chronic) Spinal stenosis, lumbar region without neurogenic claudication (Acute 12/14/11) Osteoarthritis of spine with radiculopathy, cervical region (Acute 09/05/11) Sacroiliac joint dysfunction of right side (Acute) Spinal stenosis of lumbar region with radiculopathy (Acute) 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 [place] [facility] [place] Essential hypertension (Acute 02/26/13) [place] cardiac risk >20% in next 10 years (Chronic) 2020: 32% Magnesium-losing nephropathy (Chronic) very mild; tx spironolactone GERD (gastroesophageal reflux disease) (Chronic) Depression (Chronic 07/01/14) Medical marijuana use (Chronic) Arthritis of left glenohumeral joint (Chronic ~07/01/14) Medical History Abnormal weight loss Urothelial carcinoma of bladder (~2016) [facility] CHF exacerbation Acute cystitis Pneumonia Acute UTI Weakness Acute UTI Anemia Smoker Unintentional weight loss Leg edema Delayed gastric emptying mild Hyperlipidemia Neuropathy Sessile colonic polyp (03/14/18) Osteopenia (12/14/11) Osteoporosis wrist, osteopenia hip, normal bone density of spine 2016 osteopenia 2011 Adhesive capsulitis of left shoulder Injected 12/11/2018 Spinal stenosis Hx of bacterial pneumonia Surgical History H/O laminectomy (~06/2021) APD-L3-L4 laminectomy, medial fa for decompression of stenosis, lateral disectomy [id number] Cervical spondylosis 11/03/[address] C5-[address] Everett Cardoza 11/04/20 D/C'd home Status post shoulder hemiarthroplasty History of hemiarthroplasty of left shoulder 09/07/2015 H/O cystoscopy (09/06/18) w/transurethral resection of bladder tumors-Dr Wiggins Tenotomy and debridement tendon L shoulder (10/25/17) Rotator Cuff Repair Repair of umbilical hernia Hemiarthroplasty (09/07/15) L shoulder Dr Luz Colonoscopy - MAC (03/12/18) Colon,transverse,polyp,biopsy - fragment of sessile serrated adenoma. (Dr Neely) Breast, Lumpectomy Arthroplasty of knee Per patient she has not had a TOTAL KNEE Anterior Fusion Cervical Spine C3-C5 (07/31/16) Jul [place] [facility] [place] Family History Father Essential hypertension Glaucoma Alzheimer's dementia Social History Smoking/Tobacco Use Status: Former Tobacco Use Quit Date: 02/10/25 Smoking risk assessment performed?: Yes Alcohol Intake: former Drug use: Daily Substance use type: marijuana Details: marijuana: uses qd Last used Monday09/30/23 Household members: none Housing: house Number of Children: 0 Pets and animals: Yes Pets and animals: cat(s) and dog(s) Current gender identity: female What type of physical activity do you participate in: none and other Details: PT 2 xweek Frequency: 1-2 times per week Seatbelt use: always 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
--- NOTE | 2025-03-07 17:45 | DI.CT_ITS ---
Exam(s) CT FACIAL WO EXAM: CT FACIAL WO CLINICAL HISTORY: L orbital pain; fall. TECHNIQUE: Imaging Protocol: Axial computed tomography images with coronal and sagittal reformatted images were created and reviewed. No IV contrast COMPARISON: No exams were available for comparison FINDINGS: MAXILLOFACIAL CT SCAN: There is a fluid level in the right maxillary sinus. There is no obvious fracture of the sinus wall there is no evidence of orbital blowout fracture. Left maxillary sinus appears unremarkable as do the other paranasal sinuses and mastoid air cells. No evidence of nasal bone fracture. Multilevel fusion hardware is noted in the cervical spine. No evidence of mandible fracture. TM joints appear unremarkable. IMPRESSION: No evidence of facial bone fractures nor orbital fractures. Small fluid level noted in the right maxillary sinus. No obvious sinus fracture and no bone dehiscence. Report called by myself to ER provider 03/07/2025 at 6:12 p.m. RADIATION DOSE DELIVERED: 574.84mGy.cm Total DLP DATA REPOSITORY: All CT scans at this facility are submitted to the National Radiology Data Registry (NRDR) Dose Index Registry (DIR) with the [employer] (ACR). RADIATION OPTIMIZATION: All CT scans at this facility use at least one of these dose optimization techniques: automated exposure control; mA and/or kV adjustment per patient size (includes targeted exams where dose is matched to clinical indication); or iterative reconstruction.
== END 2025-03-07 18:33 | disposition home or self-care (01) ==
PROVIDERS: Emergency Provider Physician Assistant; PCP Nurse Practitioner Adult Health
DX: S00.83XA Contusion of other part of head, initial encounter (principal); S51.812A Laceration without foreign body of left forearm, initial encounter; I10 Essential (primary) hypertension; E78.5 Hyperlipidemia, unspecified; J44.9 Chronic obstructive pulmonary disease, unspecified; Z98.1 Arthrodesis status; Z87.891 Personal history of nicotine dependence; W01.198A Fall on same level from slipping, tripping and stumbling with subsequent striking against other object, initial encounter; Y93.01 Activity, walking, marching and hiking
CPT/HCPCS: 99284; 70486

== ENCOUNTER 2025-04-14 11:12 | Observation (INO) | payer MEDICARE, MEDICAID, SELFPAY ==
[2025-04-14] VITALS (17 sets, daily range): BP systolic 129–175; BP diastolic 68–119; PULSE 58–94; RESP 14–24; TEMP 36.1–37; O2SAT 88–99
--- NOTE | 2025-04-14 11:15 | RT.EKG_ITS ---
APPROVED REPORT Exam: Resting ECG Reason for Exam: SOB, Patient Location: E HR:62 bpm ECG Measurements Heart Rate 62 AXIS TX 143 P 68 QRSd 76 QRS 69 QT 407 T 34 QTc 414 Conclusion Sinus rhythm...normal P axis, V-rate 60- 99 No Occlusion [place]
--- NOTE | 2025-04-14 11:17 | W.EDPROG ---
Date of service: 04/14/25 Time of Service: 11:17 Medical Decision Making 75 year old female presents to ER with chief complaint of nausea abdominal cramping, nausea denies any diarrhea, does have a history of delayed gastric emptying, hyperlipidemia, presents with hypoxia sat 88% RA reports does not normally wear oxygen at home. Also endorses productive cough with green sputum, denies any chest pain any reports staying in bed for the last 24 to 48 hours denies any lightheadedness or diaphoresis. Seen here approximately a week ago for a skin tear and a fall. Initial orders placed patient triaged back to ER room. Quality:SDOH Health Related Social Needs: Health related social needs risk of homeless house/econ circumstance lonely/isolated education Health related social needs details so far im good Discharge Plan Disposition Patient Disposition: Admit to [facility] Discharge Details Clinical Impression: Hypomagnesemia, Acute hypoxemic respiratory failure, Multifocal pneumonia Admit Date/Time: 04/14/25 15:51 Admit Provider: Javier Louise Attending Provider: Javier Louise Primary Care Provider: Chanel Nelson ED Provider: Robert Coleman Discharge Data Discharge Date/Time-TO BE ENTERED AT DEPARTURE: 04/14/25 16:51
[2025-04-14 11:50] LABS: BE (Venous) 1 mmol/L (-2-3); HCO3 (Venous) 25 mmol/L (23-28); O2 Sat (Venous) 61 %; TCO2 (Venous) 23 mmol/L (24-29); pCO2 (Venous) 39 mmHg (41-51); pO2 (Venous) 33 mmHg
[2025-04-14 11:51] LABS: Abs Immature Grans 0.03 10^3/uL (0.0-0.06); HCT 34.0 % (36.0-46.0); HGB 10.8 g/dL (11.2-15.7); Immature Grans % 0.4 %; MCH 27.6 pg (27.0-33.0); MCHC 31.8 % (32.0-36.0); MCV 87 fL (80-95); MPV 10.1 fL (8.0-11.0); Platelet Count 208 10^3/uL (130-400); RBC 3.91 10^6/uL (3.93-5.22); RDW 14.6 % (11.7-14.6); RDW-SD 46.8 fL; WBC 8.45 10^3/uL (4.4-10.8)
--- NOTE | 2025-04-14 12:00 | DI.RAD_ITS ---
Exam(s) XR CHEST 1V IN DI DEPT EXAM: XR CHEST 1V IN DI DEPT CLINICAL HISTORY: Cough phlegm TECHNIQUE: 2D digital imaging was performed. COMPARISON: CR,XR XR CHEST 2V PA LATERAL from 09/25/[address] ABDOMEN PELVIS W from 04/14/2025 FINDINGS: LUNGS: Multi focal bilateral infiltrates, left lower lobe and left mid to lower lung barron. Coarsening of the interstitial markings. No pleural abnormality seen. HEART: Normal size. AORTA: Normal diameter. BONES: hardware in cervical spine and left shoulder. Soft tissues: Unremarkable. IMPRESSION: Multifocal bilateral infiltrates. DATA REPOSITORY: RADIATION DOSE DELIVERED:
--- NOTE | 2025-04-14 12:00 | DI.CT_ITS ---
Exam(s) CT ABDOMEN PELVIS W EXAM: CT ABDOMEN PELVIS W CLINICAL HISTORY: Abdominal pain. TECHNIQUE: Imaging Protocol: Axial computed tomography images with coronal and sagittal reformatted images were created and reviewed CONTRAST MATERIAL: Intravenous: Omnipaque 350 Contrast volume:75 ml Oral: no COMPARISON: CT CT THORAX ABD/PEL CTA from 09/24/2022 FINDINGS: ABDOMEN and PELVIS: Lung Bases: Mild bronchiectasis as well as bronchial wall thickening. Patchy densities posterior left lower lobe. Liver: Normal density. No suspicious mass. Gallbladder and biliary tract: No radiodense calculus. No wall thickening or pericholecystic fluid. No biliary dilation. Pancreas: Normal density. No abnormal calcifications or inflammatory process. No evidence of mass. Spleen: Normal. Kidneys: Normal size, contour and axis. No radiodense stones. No obstructive uropathy. No suspicious masses seen. Adrenal glands: Both adrenal glands again appear prominent. No focal masses seen. Vasculature: Abdominal aorta non-dilated. Severe atherosclerotic calcifications. Soft tissues: Unremarkable. Bladder: No gross wall thickening. No calculi.No focal mass. Bowel: No obstruction. No bowel wall thickening. Appendix normal. Peritoneal cavity: No ascites. No focal collection. No mesenteric inflammatory response. No free air. Bones: Advanced degenerative changes in the lumbar spine and left hip. Bilateral L3 spondylolysis and mild L3-4 spondylolisthesis. Reproductive organs: Uterine fibroids. Lymph nodes: No pathologically enlarged lymph nodes. IMPRESSION:: No acute abnormality in the abdomen or pelvis. Bronchiectasis and bronchial wall thickening. Left basilar infiltrate is included in the field of view. RADIATION DOSE DELIVERED: 177.41mGy.cm Total DLP DATA REPOSITORY: All CT scans at this facility are submitted to the National Radiology Data Registry (NRDR) Dose Index Registry (DIR) with the [employer] (ACR). RADIATION OPTIMIZATION: All CT scans at this facility use at least one of these dose optimization techniques: automated exposure control; mA and/or kV adjustment per patient size (includes targeted exams where dose is matched to clinical indication); or iterative reconstruction.
--- NOTE | 2025-04-14 12:13 | W.ED.GENAD ---
Discharge Plan Disposition Patient Disposition: Admit to [facility] Discharge Details Clinical Impression: Hypomagnesemia, Acute hypoxemic respiratory failure, Multifocal pneumonia Primary Care Provider: Chanel Nelson ED Provider: Robert Coleman Stehekin Meds and New Rx's Prescriptions: No Action acetaminophen [Tylenol Arthritis Pain] 650 mg tablet extended release 650 mg PO BID PRN ketoconazole 2 % cream 1 applic topical DAILY Qty: 120 6RF Rx Instructions: Apply to toenails once daily simethicone [Gas Relief (simethicone)] 80 mg tablet,chewable 80 mg PO TID-QID PRN (Reason: abdominal distention) Qty: 40 0RF Rx Instructions: Bloating, bubbling/gas in abdomen ondansetron 4 mg tablet,disintegrating 4 mg PO DAILY PRN (Reason: nausea and vomiting) Qty: 40 12RF ibuprofen 200 mg capsule 200 mg PO BID PRN pantoprazole 20 mg tablet,delayed release (DR/EC) See Rx Instructions .ROUTE .COMPLEX Qty: 180 3RF Dose Instruction: TAKE 1 TABLET TWICE DAILY FOR REFLUX Rx Instructions: TAKE 1 TABLET TWICE DAILY FOR REFLUX duloxetine 60 mg capsule,delayed release(DR/EC) 60 mg PO DAILY Qty: 90 3RF pravastatin 40 mg tablet See Rx Instructions .ROUTE .COMPLEX Qty: 90 3RF Dose Instruction: TAKE 1 TABLET EVERY DAY Rx Instructions: TAKE 1 TABLET EVERY DAY pregabalin 225 mg capsule 225 mg PO BID Qty: 60 0RF Rx Instructions: Dose increase back to baseline Neuro dosing 10/10/2024 mirtazapine 30 mg tablet 30 mg PO QHS Qty: 90 3RF celecoxib 200 mg capsule See Rx Instructions .ROUTE .COMPLEX Qty: 90 3RF Dose Instruction: TAKE 1 CAPSULE EVERY DAY IN THE MORNING WITH FOOD FOR CHRONIC SPINE PAIN (CERVICAL AND LUMBAR) Rx Instructions: TAKE 1 CAPSULE EVERY DAY IN THE MORNING WITH FOOD FOR CHRONIC SPINE PAIN (CERVICAL AND LUMBAR) potassium chloride 10 mEq capsule, extended release See Rx Instructions .ROUTE .COMPLEX Qty: 90 3RF Dose Instruction: TAKE 1 CAPSULE EVERY DAY Rx Instructions: TAKE 1 CAPSULE EVERY DAY spironolactone 25 mg tablet See Rx Instructions .ROUTE .COMPLEX Qty: 90 3RF Dose Instruction: TAKE 1 TABLET EVERY DAY FOR MAGNESIUM WASTING Rx Instructions: TAKE 1 TABLET EVERY DAY FOR MAGNESIUM WASTING cetirizine 10 mg tablet See Rx Instructions .ROUTE .COMPLEX Qty: 90 0RF Dose Instruction: TAKE 1 TABLET ONE TO TWO TIMES PER DAY. TAKE LOWEST EFFECTIVE DOSE Rx Instructions: TAKE 1 TABLET ONE TO TWO TIMES PER DAY. TAKE LOWEST EFFECTIVE DOSE magnesium oxide 400 mg (241.3 mg magnesium) tablet See Rx Instructions .ROUTE .COMPLEX Qty: 90 3RF Dose Instruction: TAKE 1 TABLET EVERY DAY Rx Instructions: TAKE 1 TABLET EVERY DAY amlodipine 2.5 mg tablet See Rx Instructions .ROUTE .COMPLEX Qty: 90 3RF Dose Instruction: TAKE 1 TABLET EVERY DAY Rx Instructions: TAKE 1 TABLET EVERY DAY HPI General Date/Time Provider Initiated Documentation: 04/14/25 11:13. HPI Narrative: MDM Broad differential of abdominal pain and this normothermic and not tachycardic 75-year-old female. Given history of ureterolithiasis will obtain CT abdomen pelvis to assess for ureterolithiasis. She has had phlegm and cough so will obtain chest x-ray as she was hypoxic on arrival. I considered sepsis however patient is normothermic not tachycardic nor hypotensive so I did not feel she required broad-spectrum IV antibiotics lactate nor blood cultures. No pain out of proportion to suggest necrotizing soft tissue infection. No dysuria nor frequency to suggest UTI however will obtain urinalysis given abdominal pain. No rash to suggest zoster. Pain does travel into back raising possibility of AAA. 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 Given mesenteric ischemia is on the differential we will obtain lactate. Given generalized abdominal tenderness appendicitis is on the differential is diverticulitis. Will obtain add on lipase to assess for pancreatitis. ECG nonischemic however given abdominal pain age and sex will obtain troponins to rule stratify for ACS. 12:13 PM CBC lacks anemia and thrombocytopenia but does have new normocytic anemia similar to prior from 2020. Venous blood gas lacks acidemia and hypercarbia. 12:36 PM Initial reassuring troponin. Comprehensive metabolic panel with mild alkaline phosphatase elevation that is new. No JASON. No acute electrolyte abnormalities beyond very mild hyponatremia. Slight hypomagnesemia. 2:15 PM Patient found to have left lower lobe infiltrate on CT scan. An ambulatory trial resulted patient desaturated to 88% on room air. Given her elevated port score we will reach out to hospitalist. I treated her with amoxicillin and doxycycline. Will obtain COVID swab. Reassuring normal lactate. 2:30 PM I ambulated the patient. She became hypoxic, short of breath. Saturation was 88%. I reached out to Dr. Louise who graciously accept patient for hospitalization. HPI The patient presents for evaluation of abdominal pain. She is accompanied by her friend. She reports experiencing abdominal discomfort since the previous night, localized to the front of her stomach. She has not experienced any nausea or vomiting. She has had similar episodes in the past, but the cause was never determined. She does not report any difficulty breathing or painful urination. Her last bowel movement was normal. She has no history of abdominal surgeries or rashes. She attempted to alleviate her symptoms by drinking water and was administered Benadryl yesterday. She had a kidney stone many years ago. She has also been bringing up thick phlegm. Exam General: Well-appearing in no acute distress speaking in complete sentences. Head: Normocephalic, atraumatic. Eye: Extraocular eye movements intact. No conjunctival injection. No scleral icterus. Ear, nose, mouth, throat: Grossly normal inspection. Normal voice, handling secretions normally. Neck: Trachea midline. Cardiovascular: Well-perfused distal extremities. Regular rate and rhythm Respiratory: Nonlabored respiration. Clear lungs bilaterally Gastrointestinal: Nondistended abdomen. Generalized abdominal tenderness. No rebound. No guarding Musculoskeletal: No edema. Moving all 4 extremities spontaneously. Skin: Normal for age and race, grossly normal temperature and turgor. No acute rash. Neurologic: Alert and appropriate, no apparent acute deficits. Psychiatric: Mood and manner are appropriate. Grooming and personal hygiene are appropriate. Related Data Home Medications ?Medication ?Instructions ?Recorded ?Confirmed ketoconazole 2 % topical cream 1 applic topical DAILY #120 grams 11/14/23 04/14/25 simethicone 80 mg chewable tablet 80 mg PO TID-QID PRN abdominal 07/03/24 04/14/25 (Gas Relief (simethicone)) distention #40 tabs ondansetron 4 mg disintegrating 4 mg PO DAILY PRN nausea and 07/29/24 04/14/25 tablet vomiting #40 tabs pantoprazole 20 mg tablet,delayed See Rx Instructions .Route 11/06/24 04/14/25 release .COMPLEX #180 tabs duloxetine 60 mg capsule,delayed 60 mg PO DAILY #90 caps 12/12/24 04/14/25 release pravastatin 40 mg tablet See Rx Instructions .Route 01/20/25 04/14/25 .COMPLEX #90 tabs pregabalin 225 mg capsule 225 mg PO BID #60 caps 02/04/25 04/14/25 mirtazapine 30 mg tablet 30 mg PO QHS #90 tabs 02/05/25 04/14/25 acetaminophen 650 mg 650 mg PO BID PRN 02/18/25 04/14/25 tablet,extended release (Tylenol Arthritis Pain) ibuprofen 200 mg capsule 200 mg PO BID PRN 02/18/25 04/14/25 celecoxib 200 mg capsule See Rx Instructions .Route 02/24/25 04/14/25 .COMPLEX #90 caps potassium chloride 10 mEq See Rx Instructions .Route 02/24/25 04/14/25 capsule,extended release .COMPLEX #90 caps cetirizine 10 mg tablet See Rx Instructions .Route 03/24/25 04/14/25 .COMPLEX #90 tabs spironolactone 25 mg tablet See Rx Instructions .Route 03/24/25 04/14/25 .COMPLEX #90 tabs magnesium oxide 400 mg (241.3 mg See Rx Instructions .Route 03/31/25 04/14/25 magnesium) tablet .COMPLEX #90 tabs amlodipine 2.5 mg tablet See Rx Instructions .Route 04/03/25 04/14/25 .COMPLEX #90 tabs Previous Rx's ?Medication ?Instructions ?Recorded ketoconazole 2 % topical cream 1 applic topical DAILY #120 grams 11/14/23 simethicone 80 mg chewable tablet 80 mg PO TID-QID PRN abdominal 07/03/24 (Gas Relief (simethicone)) distention #40 tabs ondansetron 4 mg disintegrating 4 mg PO DAILY PRN nausea and 07/29/24 tablet vomiting #40 tabs pantoprazole 20 mg tablet,delayed See Rx Instructions .Route 11/06/24 release .COMPLEX #180 tabs duloxetine 60 mg capsule,delayed 60 mg PO DAILY #90 caps 12/12/24 release pravastatin 40 mg tablet See Rx Instructions .Route 01/20/25 .COMPLEX #90 tabs pregabalin 225 mg capsule 225 mg PO BID #60 caps 02/04/25 mirtazapine 30 mg tablet 30 mg PO QHS #90 tabs 02/05/25 celecoxib 200 mg capsule See Rx Instructions .Route 02/24/25 .COMPLEX #90 caps potassium chloride 10 mEq See Rx Instructions .Route 02/24/25 capsule,extended release .COMPLEX #90 caps cetirizine 10 mg tablet See Rx Instructions .Route 03/24/25 .COMPLEX #90 tabs spironolactone 25 mg tablet See Rx Instructions .Route 03/24/25 .COMPLEX #90 tabs magnesium oxide 400 mg (241.3 mg See Rx Instructions .Route 03/31/25 magnesium) tablet .COMPLEX #90 tabs amlodipine 2.5 mg tablet See Rx Instructions .Route 04/03/25 .COMPLEX #90 tabs Allergies Allergy/AdvReac Type Severity Reaction Status Date / Time ciprofloxacin Allergy Other (See Verified 04/14/25 11:21 Comment) codeine AdvReac Intermediate Nausea Verified 04/14/25 11:21 nitrofurantoin AdvReac Intermediate bloating, Verified 04/14/25 11:21 weakness oxycodone AdvReac Intermediate GI issues Verified 04/14/25 11:21 hydrochlorothiazide AdvReac Mild hypomagnese Verified 04/14/25 11:21 pop narcotics AdvReac Intermediate Nausea, Uncoded 04/14/25 11:21 vomiting General Stated Complaint: Nausea/Vomit/Diar ROSENDO: 3 Course Vital Signs Vital signs: Vital Signs Temperature 37.0 C 04/14/25 11:17 Pulse 76 04/14/25 11:17 Respiratory Rate 20 04/14/25 11:17 Blood Pressure 153/70 H 04/14/25 11:17 Pulse Oximetry 88 L 04/14/25 11:17 Temperature 37.0 C 04/14/25 11:17 Temperature Source Oral 04/14/25 11:17 Pulse 76 04/14/25 11:17 Respiratory Rate 20 04/14/25 11:17 Blood Pressure 153/70 H 04/14/25 11:17 Blood Pressure Position Sitting 04/14/25 11:17 Pulse Oximetry 88 L 04/14/25 11:17 Oxygen Delivery Method Room Air 04/14/25 11:17 Oxygen Flow Rate 0 04/14/25 11:17 Pain Level 0 04/14/25 11:17 Lab/Test Results Lab/Test Results: Laboratory Tests Range/Units 04/14/25 11:43 WBC (4.4-10.8) 10^3/uL 8.45 RBC (3.93-5.22) 10^6/uL 3.91 L Hgb (11.2-15.7) g/dL 10.8 L Hct (36.0-46.0) % 34.0 L MCV (80-95) fL 87 MCH (27.0-33.0) pg 27.6 MCHC (32.0-36.0) % 31.8 L RDW (11.7-14.6) % 14.6 Plt Count (130-400) 10^3/uL 208 MPV (8.0-11.0) fL 10.1 Immature Gran % % 0.4 Neutrophils % % 78.0 Lymphocytes % % 13.4 Monocytes % % 6.9 Eosinophils % % 0.9 Basophils % % 0.4 Nucleated RBC % (0.0-0.3) % 0.0 Absolute Neutrophils (1.2-6.7) 10^3/uL 6.60 Absolute Lymphocytes (1.2-3.4) 10^3/uL 1.13 L Absolute Monocytes (0.1-0.8) 10^3/uL 0.58 Absolute Eosinophils (0.0-0.7) 10^3/uL 0.08 Absolute Basophils (0.0-0.2) 10^3/uL 0.03 VBG pH (7.31-7.41) 7.42 H VBG pCO2 (41-51) mmHg 39 L VBG pO2 mmHg 33 VBG HCO3 (23-28) mmol/L 25 VBG Total CO2 (24-29) mmol/L 23 L VBG O2 Saturation % 61 VBG Base Excess (-2-3) mmol/L 1 PFSH All Active Problems (Updated 04/14/25 @ 14:25 by Marisabel Oconnell, MORRIS) Abdominal pain (Acute) Multifocal pneumonia (Acute) Acute hypoxemic respiratory failure (Acute) Hypomagnesemia (Acute) History of bladder cancer (Acute) Superficial Bladder CA, yearly cysto for surveillance. Dr. Wiggins Advanced care planning/counseling discussion (Acute) Palliative care encounter (Acute) Weight loss (Acute) PVD (peripheral vascular disease) (Chronic) Pain in both feet (Acute) Onychomycosis (Acute) High risk for fracture due to osteoporosis by DEXA scan (Acute ~03/2023) RX Fosamax Poor manual dexterity (Acute) Lung nodule seen on imaging study (Acute ~10/2022) Annual LDCT Impaired gait and mobility (Acute) Chronic pain (Chronic) Due to OA shoulders, knees, Spinal stenosis. 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/03/16 Cervical myelopathy (Chronic) Spinal stenosis, lumbar region without neurogenic claudication (Acute 12/14/11) Osteoarthritis of spine with radiculopathy, cervical region (Acute 09/05/11) Sacroiliac joint dysfunction of right side (Acute) Spinal stenosis of lumbar region with radiculopathy (Acute) 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 Dr Velazco, [facility] [place] Neurology Essential hypertension (Acute 02/26/13) [place] cardiac risk >20% in next 10 years (Chronic) 2020: 32% Magnesium-losing nephropathy (Chronic) very mild; tx spironolactone GERD (gastroesophageal reflux disease) (Chronic) Depression (Chronic 07/01/14) Medical marijuana use (Chronic) Arthritis of left glenohumeral joint (Chronic ~07/01/14) Medical History Abnormal weight loss Urothelial carcinoma of bladder (~2016) [facility] CHF exacerbation Acute cystitis Pneumonia Acute UTI Weakness Acute UTI Anemia Smoker Unintentional weight loss Leg edema Delayed gastric emptying mild Hyperlipidemia Neuropathy Sessile colonic polyp (03/14/18) Osteopenia (12/14/11) Osteoporosis wrist, osteopenia hip, normal bone density of spine 2016 osteopenia 2011 Adhesive capsulitis of left shoulder Injected 12/11/2018 Spinal stenosis Hx of bacterial pneumonia Surgical History H/O laminectomy (~06/2021) APD-L3-L4 laminectomy, medial fa for decompression of stenosis, lateral disectomy [id number] Cervical spondylosis 11/03/20 C5-[address] Everett Meehan 11/04/20 D/C'd home Status post shoulder hemiarthroplasty History of hemiarthroplasty of left shoulder 09/07/2015 H/O cystoscopy (09/06/18) w/transurethral resection of bladder tumors-Dr Wiggins Tenotomy and debridement tendon L shoulder (10/25/17) Rotator Cuff Repair Repair of umbilical hernia Hemiarthroplasty (09/07/15) L shoulder Dr Luz Colonoscopy - MAC (03/12/18) Colon,transverse,polyp,biopsy - fragment of sessile serrated adenoma. (Dr Neely) Breast, Lumpectomy Arthroplasty of knee Per patient she has not had a TOTAL KNEE Anterior Fusion Cervical Spine C3-C5 (07/31/16) Jul 2016, [facility] [place] Dr. Martinez Family History Father Essential hypertension Glaucoma Alzheimer's dementia Social History Smoking/Tobacco Use Status: Former Tobacco Use Quit Date: 02/10/25 Smoking risk assessment performed?: Yes Alcohol Intake: former Drug use: Daily Substance use type: marijuana Details: marijuana: uses qd Last used Monday09/30/23 Household members: none Housing: house Number of Children: 0 Pets and animals: Yes Pets and animals: cat(s) and dog(s) Current gender identity: female What type of physical activity do you participate in: none and other Details: PT 2 xweek Frequency: 1-2 times per week Seatbelt use: always Drive intox or ride w/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
[2025-04-14 12:26] LABS: ALT 18 U/L (14-59); AST 28 U/L (15-37); Albumin 3.1 g/dL (3.4-5.0); Alkaline Phosphatase 132 U/L (46-116); Anion Gap 8.6 mmol/L (3-11); BUN 30 mg/dL (7-18); Bilirubin, Total 0.6 mg/dL (0.2-1.0); CO2 25.4 mmol/L (21.0-32.0); Calcium 9.5 mg/dL (8.5-10.1); Chloride 100 mmol/L (98-107); Estimated GFR 58.75 (mL/min/1.73m2); Glucose 102 mg/dL (74-106); Magnesium 1.7 mg/dL (1.8-2.4); Potassium 4.6 mmol/L (3.5-5.1); Sodium 134 mmol/L (136-145); Total Protein 7.6 g/dL (6.4-8.2); Troponin I 5 ng/L (<or=51)
[2025-04-14] MEDS: Omnipaque 350 MG/ML 500 ML BTL-Imaging package IJ (12:58)
[2025-04-14] MEDS: Normal Saline - Diluent 50 ML VIAL IJ (12:59)
[2025-04-14 13:03] LABS: Lab Add On Test DONE
[2025-04-14 13:33] LABS: Troponin I 6 ng/L (<or=51)
[2025-04-14 13:47] LABS: Lipase 32 U/L (<78)
--- NOTE | 2025-04-14 14:24 | HPE_ITS ---
Date of service: 04/14/25 Time of Service: 14:24 Assessment and Plan Assessment and plan (1) Acute hypoxemic respiratory failure: Status: Acute Assessment and plan: d/t multiple focal pneumonia wean oxygen as able. (2) Multifocal pneumonia: Status: Acute Assessment and plan: does not meet sepsis criteria continue ceftriaxone and doxycycline day 1/5 add duoneb and albuterol updrafts scheduled mucinex (3) Abdominal pain: Status: Acute Assessment and plan: work up with no acute intra-abdominal findings on CT or labs discussed with DR Louise Review of Systems All systems reviewed & are unremarkable except as noted in HPI and below PFSH All Active Problems (Updated 04/14/25 @ 16:50 by NAOMY NAILS) Abdominal pain (Acute) Multifocal pneumonia (Acute) Acute hypoxemic respiratory failure (Acute) Hypomagnesemia (Acute) History of bladder cancer (Acute) Superficial Bladder CA, yearly cysto for surveillance. Dr. Wiggins Advanced care planning/counseling discussion (Acute) Palliative care encounter (Acute) Weight loss (Acute) PVD (peripheral vascular disease) (Chronic) Pain in both feet (Acute) Onychomycosis (Acute) High risk for fracture due to osteoporosis by DEXA scan (Acute ~03/2023) RX Fosamax Poor manual dexterity (Acute) Lung nodule seen on imaging study (Acute ~10/2022) Annual LDCT Impaired gait and mobility (Acute) Chronic pain (Chronic) Due to OA shoulders, knees, Spinal stenosis. 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/03/16 Cervical myelopathy (Chronic) Spinal stenosis, lumbar region without neurogenic claudication (Acute 12/14/11) Osteoarthritis of spine with radiculopathy, cervical region (Acute 09/05/11) Sacroiliac joint dysfunction of right side (Acute) Spinal stenosis of lumbar region with radiculopathy (Acute) 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 Dr Velazco, [facility] Neurology Essential hypertension (Acute 02/26/13) [place] cardiac risk >20% in next 10 years (Chronic) 2020: 32% Magnesium-losing nephropathy (Chronic) very mild; tx spironolactone GERD (gastroesophageal reflux disease) (Chronic) Depression (Chronic 07/01/14) Medical marijuana use (Chronic) Arthritis of left glenohumeral joint (Chronic ~07/01/14) Medical History Abnormal weight loss Urothelial carcinoma of bladder (~2016) [facility] CHF exacerbation Acute cystitis Pneumonia Acute UTI Weakness Acute UTI Anemia Smoker Unintentional weight loss Leg edema Delayed gastric emptying mild Hyperlipidemia Neuropathy Sessile colonic polyp (03/14/18) Osteopenia (12/14/11) Osteoporosis wrist, osteopenia hip, normal bone density of spine 2016 osteopenia 2011 Adhesive capsulitis of left shoulder Injected 12/11/2018 Spinal stenosis Hx of bacterial pneumonia Surgical History H/O laminectomy (~06/2021) APD-L3-L4 laminectomy, medial fa for decompression of stenosis, lateral disectomy [id number] Cervical spondylosis 11/03/20 C5-[address] Everett Cardoza 11/04/20 D/C'd home Status post shoulder hemiarthroplasty History of hemiarthroplasty of left shoulder 09/07/2015 H/O cystoscopy (09/06/18) w/transurethral resection of bladder tumors-Dr Wiggins Tenotomy and debridement tendon L shoulder (10/25/17) Rotator Cuff Repair Repair of umbilical hernia Hemiarthroplasty (09/07/15) L shoulder Dr Luz Colonoscopy - MAC (03/12/18) Colon,transverse,polyp,biopsy - fragment of sessile serrated adenoma. (Dr Neely) Breast, Lumpectomy Arthroplasty of knee Per patient she has not had a TOTAL KNEE Anterior Fusion Cervical Spine C3-C5 (07/31/16) Jul 2016, [facility] Dr. Martinez Family History Father Essential hypertension Glaucoma Alzheimer's dementia Social History Smoking/Tobacco Use Status: Former Tobacco Use Quit Date: 02/10/25 Smoking risk assessment performed?: Yes Alcohol Intake: former Drug use: Daily Substance use type: marijuana Details: marijuana: uses qd Last used Monday09/30/23 Household members: none Housing: house Number of Children: 0 Pets and animals: Yes Pets and animals: cat(s) and dog(s) Current gender identity: female What type of physical activity do you participate in: none and other Details: PT 2 xweek Frequency: 1-2 times per week Seatbelt use: always Drive intox or ride w/intox 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 Working smoke detector in home: Yes Fire extinguisher in home: Yes Carbon monox detector in home: Yes Do you feel safe at home: Yes Do you feel safe in your relationship?: Yes Meds Allergies and Home Medications Allergies Allergy/AdvReac Type Severity Reaction Status Date / Time ciprofloxacin Allergy Other (See Verified 04/14/25 11:21 Comment) codeine AdvReac Intermediate Nausea Verified 04/14/25 11:21 nitrofurantoin AdvReac Intermediate bloating, Verified 04/14/25 11:21 weakness oxycodone AdvReac Intermediate GI issues Verified 04/14/25 11:21 hydrochlorothiazide AdvReac Mild hypomagnese Verified 04/14/25 11:21 pop narcotics AdvReac Intermediate Nausea, Uncoded 04/14/25 11:21 vomiting Home Medications ?Medication ?Instructions ?Recorded ?Confirmed ?Type ketoconazole 2 % topical cream 1 applic topical DAILY #120 grams 11/14/23 04/14/25 Rx simethicone 80 mg chewable tablet 80 mg PO TID-QID PRN abdominal 07/03/24 04/14/25 Rx (Gas Relief (simethicone)) distention #40 tabs ondansetron 4 mg disintegrating 4 mg PO DAILY PRN naus ea and 07/29/24 04/14/25 Rx tablet vomiting #40 tabs pantoprazole 20 mg tablet,delayed See Rx Instructions .Route 11/06/24 04/14/25 Rx release .COMPLEX #180 tabs duloxetine 60 mg capsule,delayed 60 mg PO DAILY #90 ca ps 12/12/24 04/14/25 Rx release pravastatin 40 mg tablet See Rx Instructions .Route 0 01/20/25 04/14/25 Rx .COMPLEX #90 tabs pregabalin 225 mg capsule 225 mg PO BID #60 caps 02/0404/14/25 Rx mirtazapine 30 mg tablet 30 mg PO QHS #90 tabs 04/14/25 Rx acetaminophen 650 mg 650 mg PO BID PRN 02/18/25 0 04/14/25 History tablet,extended release (Tylenol Arthritis Pain) ibuprofen 200 mg capsule 200 mg PO BID PRN 02/18/25 0 04/14/25 History celecoxib 200 mg capsule See Rx Instructions .Route 0 02/24/25 04/14/25 Rx .COMPLEX #90 caps potassium chloride 10 mEq See Rx Instructions .Route 0 02/24/25 04/14/25 Rx capsule,extended release .COMPLEX #90 caps cetirizine 10 mg tablet See Rx Instructions .Route 0 03/24/25 04/14/25 Rx .COMPLEX #90 tabs spironolactone 25 mg tablet See Rx Instructions .Route 03/24/25 04/14/25 Rx .COMPLEX #90 tabs magnesium oxide 400 mg (241.3 mg See Rx Instructions . Route 03/31/25 04/14/25 Rx magnesium) tablet .COMPLEX #90 tabs amlodipine 2.5 mg tablet See Rx Instructions .Route 0 04/03/25 04/14/25 Rx .COMPLEX #90 tabs Exam Narrative Exam Narrative: Elderly female appearing older than stated age no distress head is atraumatic eyes nonicteric noninjected oral mucosa slightly dry neck full range of motion cardiovascular regular rate and rhythm respirations even and unlabored diminished throughout coarse breath sounds in the right base no wheeze abdomen nontender skin is dry flaky moves extremities no peripheral edema neurologic she is awake alert oriented psychiatric appropriate mood and affect Results Labs 04/14/25 11:43 04/14/25 11:43 Labs: Laboratory Results - last 24 hr 04/14/25 04/14/25 11:43 12:55 WBC 8.45 RBC 3.91 L Hgb 10.8 L Hct 34.0 L MCV 87 MCH 27.6 MCHC 31.8 L RDW 14.6 Plt Count 208 MPV 10.1 Immature Gran % 0.4 Neutrophils % 78.0 Lymphocytes % 13.4 Monocytes % 6.9 Eosinophils % 0.9 Basophils % 0.4 Nucleated RBC % 0.0 Absolute Neutrophils 6.60 Absolute Lymphocytes 1.13 L Absolute Monocytes 0.58 Absolute Eosinophils 0.08 Absolute Basophils 0.03 VBG pH 7.42 H VBG pCO2 39 L VBG pO2 33 VBG HCO3 25 VBG Total CO2 23 L VBG O2 Saturation 61 VBG Base Excess 1 VBG Lactate 1.1 Sodium 134 L Potassium 4.6 Chloride 100 Carbon Dioxide 25.4 Anion Gap 8.6 BUN 30 H Creatinine 1.0 Est GFR (CKD-EPI 2020) 58.75 Glucose 102 Calcium 9.5 Magnesium 1.7 L Total Bilirubin 0.6 AST 28 ALT 18 Alkaline Phosphatase 132 H Troponin I 5 6 Total Protein 7.6 Albumin 3.1 L Lipase 32 Add-On Test Request DONE Last Vital Signs Temp 37.0 C 04/14/25 11:17 Pulse 76 04/14/25 11:17 Resp 20 04/14/25 11:17 BP 153/70 H 04/14/25 11:17 Pulse Ox 88 L 04/14/25 11:17 Time Spent Time spent with Patient: 55-74 minutes Time was spent: preparing to see the patient(eg.review tests), obtaining and/or reviewing separately otained hiistory, ordering medications,tests, procedures, referring, communicating with other health adult care manager, indepentently interpreting results and counseling the patient
[2025-04-14 14:41] LABS: Lab Add On Test DONE
[2025-04-14 15:09] LABS: Procalcitonin < 0.10 ng/mL
[2025-04-14] MEDS: Normal Saline 500 ML IV (15:13)
[2025-04-14] MEDS: Magnesium Oxide 400 MG TAB PO (15:13)
[2025-04-14] MEDS: Amoxicillin 500 MG CAP PO (15:13)
[2025-04-14] MEDS: Doxycycline Hyclate 100 MG CAP PO ×2 (15:14→20:25)
--- NOTE | 2025-04-14 16:44 | W.PC.ACHO ---
Registration Status: REG ER Primary Language: Preferred Language: Romansh ED Information & Data Chief Complaint Nausea/Vomit/Diar 04/14/25 12:14 Triage Note Patient reports nausea, 04/14/25 11:17 denies emesis/diarrhea/ constipation, some stomach upset, reports her friend told her to come in Medical / Surgical History (Last Reviewed 08/27/24 @ 15:32 by Kamla Crespo DPM) Abnormal weight loss Urothelial carcinoma of bladder (~2016) Leg edema Osteopenia (12/14/11) CHF exacerbation Acute cystitis Pneumonia Acute UTI Weakness Acute UTI Anemia Smoker Unintentional weight loss Delayed gastric emptying Hyperlipidemia Neuropathy Sessile colonic polyp (03/14/18) Adhesive capsulitis of left shoulder Spinal stenosis Hx of bacterial pneumonia (Last Reviewed 08/27/24 @ 15:32 by Kamla Crespo DPM) H/O laminectomy (~06/2021) Cervical spondylosis Status post shoulder hemiarthroplasty History of hemiarthroplasty of left shoulder H/O cystoscopy (09/06/18) Tenotomy and debridement tendon L shoulder (10/25/17) Rotator Cuff Repair Repair of umbilical hernia Hemiarthroplasty (09/07/15) Colonoscopy - MAC (03/12/18) Breast, Lumpectomy Arthroplasty of knee Anterior Fusion Cervical Spine C3-C5 (07/31/16) Most Recent Vital Signs Temperature 37.0 C 04/14/25 11:17 Temperature Source Oral 04/14/25 11:17 Pulse 69 04/14/25 16:17 Pulse 80 04/14/25 15:46 Respiratory Rate 24 04/14/25 15:46 Blood Pressure 153/68 H 04/14/25 16:17 Blood Pressure Mean 96 04/14/25 16:17 Blood Pressure Position Sitting 04/14/25 11:17 Pulse Oximetry 97 04/14/25 15:46 Oxygen Delivery Method Room Air 04/14/25 11:17 Oxygen Flow Rate 0 04/14/25 11:17 Pain Level 0 04/14/25 11:17 Allergies ciprofloxacin Allergy (Verified 04/14/25 11:21) Other (See Comment) doesn't know codeine Adverse Reaction (Intermediate, Verified 04/14/25 11:21) Nausea nitrofurantoin Adverse Reaction (Intermediate, Verified 04/14/25 11:21) bloating, weakness oxycodone Adverse Reaction (Intermediate, Verified 04/14/25 11:21) GI issues hydrochlorothiazide Adverse Reaction (Mild, Verified 04/14/25 11:21) hypomagnesemia narcotics Adverse Reaction (Intermediate, Uncoded 04/14/25 11:21) Nausea, vomiting pt stated this is not true, some don't bother. Active Medications Generic Name Dose Route Start Last Admin Trade Name Boy PRN Reason Stop Dose Admin Iohexol 500 ml 04/14/25 13:00 04/14/25 12:58 Omnipaque 350 Mg/Ml 500 Ml Btl-Imaging Package IJ 05/14/25 23:59 75 ml DIRECTED FARZANA Administration Sodium Chloride 50 ml 04/14/25 13:00 04/14/25 12:59 Normal Saline - Diluent 50 Ml Vial IJ 50 ml .FOR DI USE FARZANA Administration IV IV Catheter Gauge [Right 20 Antecubital] Diet Orders Category Date Time Status Regular/Normal [DIET] Nutrition 04/14/25 Dinner Active Diagnostics 04/14/25 04/14/25 04/14/25 Range/Units 14:19 14:16 12:55 WBC (4.4-10.8) 10^3/uL RBC (3.93-5.22) 10^6/uL Hgb (11.2-15.7) g/dL Hct (36.0-46.0) % MCV (80-95) fL MCH (27.0-33.0) pg MCHC (32.0-36.0) % RDW (11.7-14.6) % Plt Count (130-400) 10^3/uL MPV (8.0-11.0) fL Immature Gran % % Neutrophils % % Lymphocytes % % Monocytes % % Eosinophils % % Basophils % % Nucleated RBC % (0.0-0.3) % Absolute Neutrophils (1.2-6.7) 10^3/uL Absolute Lymphocytes (1.2-3.4) 10^3/uL Absolute Monocytes (0.1-0.8) 10^3/uL Absolute Eosinophils (0.0-0.7) 10^3/uL Absolute Basophils (0.0-0.2) 10^3/uL VBG pH (7.31-7.41) VBG pCO2 (41-51) mmHg VBG pO2 mmHg VBG HCO3 (23-28) mmol/L VBG Total CO2 (24-29) mmol/L VBG O2 Saturation % VBG Base Excess (-2-3) mmol/L VBG Lactate (<or=2.0) mmol/L Sodium (136-145) mmol/L Potassium (3.5-5.1) mmol/L Chloride (98-107) mmol/L Carbon Dioxide (21.0-32.0) mmol/L Anion Gap (3-11) mmol/L BUN (7-18) mg/dL Creatinine (0.55-1.02) mg/dL Est GFR (CKD-EPI 2020) (mL/min/1.73m2) Glucose (74-106) mg/dL Calcium (8.5-10.1) mg/dL Magnesium (1.8-2.4) mg/dL Total Bilirubin (0.2-1.0) mg/dL AST (15-37) U/L ALT (14-59) U/L Alkaline Phosphatase (46-116) U/L Troponin I Pending (<or=51) ng/L Total Protein (6.4-8.2) g/dL Albumin (3.4-5.0) g/dL Lipase (<78) U/L Procalcitonin ng/mL COVID-19 Source Pending SARS-CoV-2 (PCR) Pending Influenza Type A (PCR) Pending Influenza Type B (PCR) Pending RSV (PCR) Pending Add-On Test Request DONE 04/14/25 04/14/25 Range/Units 12:55 11:43 WBC 8.45 (4.4-10.8) 10^3/uL RBC 3.91 L (3.93-5.22) 10^6/uL Hgb 10.8 L (11.2-15.7) g/dL Hct 34.0 L (36.0-46.0) % MCV 87 (80-95) fL MCH 27.6 (27.0-33.0) pg MCHC 31.8 L (32.0-36.0) % RDW 14.6 (11.7-14.6) % Plt Count 208 (130-400) 10^3/uL MPV 10.1 (8.0-11.0) fL Immature Gran % 0.4 % Neutrophils % 78.0 % Lymphocytes % 13.4 % Monocytes % 6.9 % Eosinophils % 0.9 % Basophils % 0.4 % Nucleated RBC % 0.0 (0.0-0.3) % Absolute Neutrophils 6.60 (1.2-6.7) 10^3/uL Absolute Lymphocytes 1.13 L (1.2-3.4) 10^3/uL Absolute Monocytes 0.58 (0.1-0.8) 10^3/uL Absolute Eosinophils 0.08 (0.0-0.7) 10^3/uL Absolute Basophils 0.03 (0.0-0.2) 10^3/uL VBG pH 7.42 H (7.31-7.41) VBG pCO2 39 L (41-51) mmHg VBG pO2 33 mmHg VBG HCO3 25 (23-28) mmol/L VBG Total CO2 23 L (24-29) mmol/L VBG O2 Saturation 61 % VBG Base Excess 1 (-2-3) mmol/L VBG Lactate 1.1 (<or=2.0) mmol/L Sodium 134 L (136-145) mmol/L Potassium 4.6 (3.5-5.1) mmol/L Chloride 100 (98-107) mmol/L Carbon Dioxide 25.4 (21.0-32.0) mmol/L Anion Gap 8.6 (3-11) mmol/L BUN 30 H (7-18) mg/dL Creatinine 1.0 (0.55-1.02) mg/dL Est GFR (CKD-EPI 2020) 58.75 (mL/min/1.73m2) Glucose 102 (74-106) mg/dL Calcium 9.5 (8.5-10.1) mg/dL Magnesium 1.7 L (1.8-2.4) mg/dL Total Bilirubin 0.6 (0.2-1.0) mg/dL AST 28 (15-37) U/L ALT 18 (14-59) U/L Alkaline Phosphatase 132 H (46-116) U/L Troponin I 6 5 (<or=51) ng/L Total Protein 7.6 (6.4-8.2) g/dL Albumin 3.1 L (3.4-5.0) g/dL Lipase 32 (<78) U/L Procalcitonin < 0.10 ng/mL COVID-19 Source SARS-CoV-2 (PCR) Influenza Type A (PCR) Influenza Type B (PCR) RSV (PCR) Add-On Test Request DONE Intake and Output - 24 Hour Total 04/14/25 11:12 thru 04/14/25 15:13 Intake Total 10 Balance 10 Weight 49.895 kg Intake: IV 10 Falls Risk Assessment History of Falls Previous History 04/14/25 15:20 Contributing Factors Impairments 04/14/25 15:20 Ambulatory Aids Uses ambulatory device + 04/14/25 15:20 Tubes/Lines With any additional score 04/14/25 15:20 Gait Evaluation No gait disturbance 04/14/25 15:20 Cognition No cognitive impairment 04/14/25 15:20 Fall Total Score 68 04/14/25 15:20 Level of Risk High Risk 04/14/25 15:20 Problems (Last Reviewed 08/27/24 @ 15:32 by Kamla Crespo DPM) Abdominal pain (Acute) Multifocal pneumonia (Acute) Acute hypoxemic respiratory failure (Acute) Hypomagnesemia (Acute) v v v v v v v v v Sending and/or Receiving Nurses: Please use comment section below to note any information pertinent to the patient hand-off not included above. Information / Comments: AOx3, VSS, c/o general weakness, doesnt feel well. Continent, uses walker at home Report received from: Chen
[2025-04-14 17:34] LABS: COVID-19 PCR Negative (Negative); RSV PCR Negative (Negative)
[2025-04-14] MEDS: Acetaminophen 325 MG TAB 650 MG PO (17:45)
[2025-04-14] MEDS: Ondansetron 4 MG/2 ML VIAL IVP (17:45)
[2025-04-14] MEDS: cefTRIAXone 1 GM/50 ML BAG IVPB (17:46)
[2025-04-14 19:04] LABS: Glucose Negative (Negative)
[2025-04-14 19:32] LABS: RBC 0-2 HPF (0-2)
[2025-04-14 19:33] LABS: C & S Indicated? No
[2025-04-14] MEDS: Mirtazapine 15 MG TAB 30 MG PO (20:24)
[2025-04-14] MEDS: Pravastatin 40 MG TAB PO (20:24)
[2025-04-14] MEDS: Pregabalin 100 MG CAP 200 MG PO (20:24)
[2025-04-14] MEDS: Pregabalin 25 MG CAP PO (20:24)
[2025-04-14] MEDS: guaiFENesin 600 MG TABCR PO (20:25)
[2025-04-14] MEDS: Normal Saline Flush 10 ML SYR IVP (20:25)
[2025-04-14] MEDS: Simethicone 80 MG CHEW PO (20:25)
[2025-04-15 06:48] LABS: Abs Immature Grans 0.03 10^3/uL (0.0-0.06); HCT 33.4 % (36.0-46.0); HGB 10.8 g/dL (11.2-15.7); Immature Grans % 0.3 %; MCH 27.9 pg (27.0-33.0); MCHC 32.3 % (32.0-36.0); MCV 86 fL (80-95); MPV 10.6 fL (8.0-11.0); Platelet Count 209 10^3/uL (130-400); RBC 3.87 10^6/uL (3.93-5.22); RDW 14.6 % (11.7-14.6); RDW-SD 46.5 fL; WBC 9.63 10^3/uL (4.4-10.8)
[2025-04-15 07:05] LABS: Anion Gap 8.3 mmol/L (3-11); BUN 26 mg/dL (7-18); CO2 25.7 mmol/L (21.0-32.0); Calcium 8.9 mg/dL (8.5-10.1); Chloride 102 mmol/L (98-107); Estimated GFR 90.14 (mL/min/1.73m2); Glucose 85 mg/dL (74-106); Magnesium 1.8 mg/dL (1.8-2.4); Potassium 3.6 mmol/L (3.5-5.1); Sodium 136 mmol/L (136-145)
[2025-04-15 08:06] VITALS: BP 113/67; PULSE 86; RESP 14; TEMP 36.9; O2SAT 95
[2025-04-15] MEDS: Pantoprazole 20 MG TABCR 40 MG PO (08:08)
[2025-04-15] MEDS: amLODIPine 2.5 MG TAB PO (08:08)
[2025-04-15] MEDS: DULoxetine 30 MG CAP 60 MG PO (08:08)
[2025-04-15] MEDS: Potassium Chloride 10 MEQ CAPCR PO (08:08)
[2025-04-15] MEDS: Magnesium Oxide 400 MG TAB PO (08:08)
[2025-04-15] MEDS: Spironolactone 25 MG TAB PO (08:09)
[2025-04-15] MEDS: Celecoxib 200 MG CAP PO (08:09)
[2025-04-15] MEDS: Pregabalin 25 MG CAP PO (08:09)
[2025-04-15] MEDS: guaiFENesin 600 MG TABCR PO (08:09)
[2025-04-15] MEDS: Doxycycline Hyclate 100 MG CAP PO (08:09)
[2025-04-15] MEDS: Cetirizine 10 MG TAB PO (08:09)
[2025-04-15] MEDS: Pregabalin 100 MG CAP 200 MG PO (08:09)
[2025-04-15] MEDS: Normal Saline Flush 10 ML SYR IVP (09:07)
--- NOTE | 2025-04-15 09:19 | PGE_ITS ---
Assessment and Plan Assessment and plan (1) Acute hypoxemic respiratory failure: Status: Acute Assessment and plan: d/t multiple focal pneumonia wean oxygen as able. (2) Multifocal pneumonia: Status: Acute Assessment and plan: does not meet sepsis criteria continue ceftriaxone and doxycycline day 09/29 add duoneb and albuterol updrafts scheduled mucinex (3) Abdominal pain: Status: Acute Assessment and plan: work up with no acute intra-abdominal findings on CT or labs discussed with DR Louise Objective Last Vital Signs Temp 36.9 C 04/15/25 08:06 Pulse 86 04/15/25 08:06 Resp 14 04/15/25 08:06 BP 113/67 04/15/25 08:06 Pulse Ox 95 04/15/25 08:06 Laboratory Results - last 24 hr 04/14/25 04/14/25 04/14/25 11:43 12:55 12:55 WBC 8.45 RBC 3.91 L Hgb 10.8 L Hct 34.0 L MCV 87 MCH 27.6 MCHC 31.8 L RDW 14.6 Plt Count 208 MPV 10.1 Immature Gran % 0.4 Neutrophils % 78.0 Lymphocytes % 13.4 Monocytes % 6.9 Eosinophils % 0.9 Basophils % 0.4 Nucleated RBC % 0.0 Absolute Neutrophils 6.60 Absolute Lymphocytes 1.13 L Absolute Monocytes 0.58 Absolute Eosinophils 0.08 Absolute Basophils 0.03 VBG pH 7.42 H VBG pCO2 39 L VBG pO2 33 VBG HCO3 25 VBG Total CO2 23 L VBG O2 Saturation 61 VBG Base Excess 1 VBG Lactate 1.1 Sodium 134 L Potassium 4.6 Chloride 100 Carbon Dioxide 25.4 Anion Gap 8.6 BUN 30 H Creatinine 1.0 Est GFR (CKD-EPI 2020) 58.75 Glucose 102 Calcium 9.5 Magnesium 1.7 L Total Bilirubin 0.6 AST 28 ALT 18 Alkaline Phosphatase 132 H Troponin I 5 6 Total Protein 7.6 Albumin 3.1 L Lipase 32 Procalcitonin < 0.10 Urine Color Urine Clarity Urine pH Ur Specific [place] Urine Protein Urine Ketones Urine Blood Urine Nitrite Urine Bilirubin Urine Urobilinogen Ur Leukocyte Esterase Urine RBC Urine WBC Ur Epithelial Cells Urine Crystals Urine Bacteria Urine Casts Urine Mucus Ur Culture Indicated? Urine Glucose COVID-19 Source SARS-CoV-2 (PCR) Influenza Type A (PCR) Influenza Type B (PCR) RSV (PCR) Add-On Test Request DONE DONE 04/14/25 04/14/25 04/14/25 14:19 16:50 18:56 WBC RBC Hgb Hct MCV MCH MCHC RDW Plt Count MPV Immature Gran % Neutrophils % Lymphocytes % Monocytes % Eosinophils % Basophils % Nucleated RBC % Absolute Neutrophils Absolute Lymphocytes Absolute Monocytes Absolute Eosinophils Absolute Basophils VBG pH VBG pCO2 VBG pO2 VBG HCO3 VBG Total CO2 VBG O2 Saturation VBG Base Excess VBG Lactate Sodium Potassium Chloride Carbon Dioxide Anion Gap BUN Creatinine Est GFR (CKD-EPI 2020) Glucose Calcium Magnesium Total Bilirubin AST ALT Alkaline Phosphatase Troponin I Cancelled Total Protein Albumin Lipase Procalcitonin Urine Color Yellow Urine Clarity Clear Urine pH 7.0 Ur Specific [place] 1.010 Urine Protein Negative Urine Ketones Trace H Urine Blood Trace-intact H Urine Nitrite Positive H Urine Bilirubin Negative Urine Urobilinogen 0.2 Ur Leukocyte Esterase Trace H Urine RBC 0-2 Urine WBC 3-5 Ur Epithelial Cells Rare Urine Crystals Negative Urine Bacteria Rare Urine Casts Negative Urine Mucus Negative Ur Culture Indicated? No Urine Glucose Negative COVID-19 Source Nasopharynx SARS-CoV-2 (PCR) Negative Influenza Type A (PCR) Negative Influenza Type B (PCR) Negative RSV (PCR) Negative Add-On Test Request 04/15/25 05:53 WBC 9.63 RBC 3.87 L Hgb 10.8 L Hct 33.4 L MCV 86 MCH 27.9 MCHC 32.3 RDW 14.6 Plt Count 209 MPV 10.6 Immature Gran % 0.3 Neutrophils % 76.1 Lymphocytes % 13.2 Monocytes % 7.9 Eosinophils % 2.2 Basophils % 0.3 Nucleated RBC % 0.0 Absolute Neutrophils 7.33 H Absolute Lymphocytes 1.27 Absolute Monocytes 0.76 Absolute Eosinophils 0.21 Absolute Basophils 0.03 VBG pH VBG pCO2 VBG pO2 VBG HCO3 VBG Total CO2 VBG O2 Saturation VBG Base Excess VBG Lactate Sodium 136 Potassium 3.6 D Chloride 102 Carbon Dioxide 25.7 Anion Gap 8.3 BUN 26 H Creatinine 0.7 Est GFR (CKD-EPI 2020) 90.14 Glucose 85 Calcium 8.9 Magnesium 1.8 Total Bilirubin AST ALT Alkaline Phosphatase Troponin I Total Protein Albumin Lipase Procalcitonin Urine Color Urine Clarity Urine pH Ur Specific [place] Urine Protein Urine Ketones Urine Blood Urine Nitrite Urine Bilirubin Urine Urobilinogen Ur Leukocyte Esterase Urine RBC Urine WBC Ur Epithelial Cells Urine Crystals Urine Bacteria Urine Casts Urine Mucus Ur Culture Indicated? Urine Glucose COVID-19 Source SARS-CoV-2 (PCR) Influenza Type A (PCR) Influenza Type B (PCR) RSV (PCR) Add-On Test Request
--- NOTE | 2025-04-15 09:24 | PDOC.CMIN ---
Date of service: 04/15/25 Time of Service: 09:24 Care Management Initial Assmt Initial Assessment Reason for Hospitalization: Pneumonia Functional Status/Living Situation Patient Presentation: Belén was sitting up in a chair when CM met with her. She was pleasant and agreeable to conversation. Belén lives alone in a single family home in [facility] with her dog and 2 cats. She has no children however shared that she has many good, close friends and neighbors locally. Belén uses a walker for ambulation and receives Meals on Wheels. She also has a sandblaster stone once a week through [employer]. She is independent with ADLs and continues to drive. Belén was admitted with pneumonia and respiratory failure. She was treated with IV antibiotics and has not requires any supplemental oxygen. She shared that she is feeling much better today and wants to go home. Town of Residence: [facility] Resides with: Alone Natural Supports: friends and neighbors Employment Status: Retired Instrumental Activities of Daily Living (ADLs): Independent Medications Medication Management: No Issues/Barriers identified Physical Functioning/Mobility Assistive Device: walker Advance Directives Advance Directives: Do you have an Advance Directive: N 06/14/22, 09:01 AD On File at [facility]: N 06/14/22, 09:01 Date Asked 07/04/24 07/04/24, 12:53 AD Date Reviewed COLST On File at [facility] COLST Date Scanned Code Status Resuscitation Status Full Code Insurance Coverage/Financial Issues Insurance: Medicare Medicaid Care Team Visit Care Team Role Provider Type Kenia Moreland APRN MD [facility] STAFF PHYSICIAN Chanel Nelson NP Primary Care Provider NURSE PRACTITIONER Steffany Cohn Other Providers REG OCCUPATIONAL THERAPIST InPatient Michael Avila Other Providers OTHER Robert Coleman MD Emergency Provider [facility] STAFF PHYSICIAN Javier Louise MD Admit Provider [facility] STAFF PHYSICIAN Attending Provider Discharge Potential Discharge Needs: PCP F/U Appt Anticipated Barriers to Discharge: None Identified Patient/Family Education Needs: Review discharge instructions, discuss Ask Me Three Transportation: Private vehicle Plan: Belén will be discharged home, with no new services, when medically cleared. She will follow up with her community providers and plan of care and transport with family. CM will follow. Social Determinants of Health Screening Social Determinants of health last assessed in clinic: 04/15/25 Will the Patient Participate in the Screening?: Yes Do you worry about having a steady place to live?: yes What is your living situation today?: I have housing today, but am worried about losing it Problems where you live: no known problems In the past 12 months, have you had to go without electric, gas, oil or water in your home?: no 1. Within the past 12 months, we worried whether our food would run out before we got money to buy more.: Never true 2. Within the past 12 months, the food we bought just didn't last and we didn't have money to get more.: Never true Has lack of transportation kept you from medical appointments or from doing things needed for daily living?: no Has anyone in your life made you feel unsafe or unsupported?: no How hard is it for you to pay for the very basics like food, housing, medical care, and heating? Would you say it is:: Somewhat hard Do you want help finding or keeping work or a job?: I do not need or want help If for any reason you need help with day-to-day activities such as bathing, preparing meals, shopping, managing finances, etc., do you get the help you need?: I don?t need any help How often do you feel lonely or isolated from those around you?: Sometimes Do you speak a language other than Maltese at home?: Yes Does the patient want assistance with any of the above?: No Comments: meals on wheels Health Related Social Needs Health related social needs: housing instability, housed, with risk of homelessness (Z59.811), problems related to housing/economic circumstances (Z59.89), feeling lonely/isolated (Z60.8) and education (Z55.6) Health related social needs details: so far im good PFSH All Active Problems (Updated 04/15/25 @ 12:28 by eKnia Moreland APRN) Abdominal pain (Acute) Multifocal pneumonia (Acute) Acute hypoxemic respiratory failure (Acute) Hypomagnesemia (Acute) History of bladder cancer (Acute) Superficial Bladder CA, yearly cysto for surveillance. Dr. Wiggins Advanced care planning/counseling discussion (Acute) Palliative care encounter (Acute) Weight loss (Acute) PVD (peripheral vascular disease) (Chronic) Pain in both feet (Acute) Onychomycosis (Acute) High risk for fracture due to osteoporosis by DEXA scan (Acute ~03/2023) RX Fosamax Poor manual dexterity (Acute) Lung nodule seen on imaging study (Acute ~10/2022) Annual LDCT Impaired gait and mobility (Acute) Chronic pain (Chronic) Due to OA shoulders, knees, Spinal stenosis. 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/03/16 Cervical myelopathy (Chronic) Spinal stenosis, lumbar region without neurogenic claudication (Acute 12/14/11) Osteoarthritis of spine with radiculopathy, cervical region (Acute 09/05/11) Sacroiliac joint dysfunction of right side (Acute) Spinal stenosis of lumbar region with radiculopathy (Acute) 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 [place] [facility] [place] Essential hypertension (Acute 02/26/13) [place] cardiac risk >20% in next 10 years (Chronic) 2020: 32% Magnesium-losing nephropathy (Chronic) very mild; tx spironolactone GERD (gastroesophageal reflux disease) (Chronic) Depression (Chronic 07/01/14) Medical marijuana use (Chronic) Arthritis of left glenohumeral joint (Chronic ~07/01/14) Medical History Abnormal weight loss Urothelial carcinoma of bladder (~2016) [facility] CHF exacerbation Acute cystitis Pneumonia Acute UTI Weakness Acute UTI Anemia Smoker Unintentional weight loss Leg edema Delayed gastric emptying mild Hyperlipidemia Neuropathy Sessile colonic polyp (03/14/18) Osteopenia (12/14/11) Osteoporosis wrist, osteopenia hip, normal bone density of spine 2016 osteopenia 2011 Adhesive capsulitis of left shoulder Injected 12/11/2018 Spinal stenosis Hx of bacterial pneumonia Surgical History H/O laminectomy (~06/2021) APD-L3-L4 laminectomy, medial fa for decompression of stenosis, lateral disectomy [id number] Cervical spondylosis 11/03/20 C5-[address] Everett Cardoza 11/04/20 D/C'd home Status post shoulder hemiarthroplasty History of hemiarthroplasty of left shoulder 09/07/2015 H/O cystoscopy (09/06/18) w/transurethral resection of bladder tumors-Dr Wiggins Tenotomy and debridement tendon L shoulder (10/25/17) Rotator Cuff Repair Repair of umbilical hernia Hemiarthroplasty (09/07/15) L shoulder Dr Luz Colonoscopy - MAC (03/12/18) Colon,transverse,polyp,biopsy - fragment of sessile serrated adenoma. (Dr Neely) Breast, Lumpectomy Arthroplasty of knee Per patient she has not had a TOTAL KNEE Anterior Fusion Cervical Spine C3-C5 (07/31/16) [place] [facility] [place] Family History Father Essential hypertension Glaucoma Alzheimer's dementia Social History Smoking/Tobacco Use Status: Former Tobacco Use Quit Date: 02/10/25 Smoking risk assessment performed?: Yes Alcohol Intake: former Drug use: Daily Substance use type: marijuana Details: marijuana: uses qd Last used Monday09/30/23 Household members: none Housing: house Number of Children: 0 Pets and animals: Yes Pets and animals: cat(s) and dog(s) Current gender identity: female What type of physical activity do you participate in: none and other Details: PT 2 xweek Frequency: 1-2 times per week Seatbelt use: always Drive intox or ride w/intox airport driver: No Working smoke detector in home: Yes Fire extinguisher in home: Yes Carbon monox detector in home: Yes Do you feel safe at home: Yes Do you feel safe in your relationship?: Yes
[2025-04-15] MEDS: Enoxaparin 40 MG/0.4 ML SYR SC (11:06)
--- NOTE | 2025-04-15 11:29 | IN_ITS ---
PT Notes Visit Reasons: hypoxic resp failure Physical Therapy inpatient Initial Evaluation Date: 04/15/2025 Referring Doctor: Kenia Moreland NP PT Orders: PT CONSULT:Safety Consult for d/c Precautions: standard Patient Profile/Admitting Diagnosis:Belén is a 75 yo female who presented to the ED 0m 04/14/25 with SOB and worsening cough x several days. Imaging revealed (+) pneumonia.Pt treated with antibiotic and admitted to Med Surg unit for further monitoring and medical management prior to discharge to home. PT Consult placed to assess functional abilities. PMHX: Abdominal pain (Acute) Multifocal pneumonia (Acute) Acute hypoxemic respiratory failure (Acute) Hypomagnesemia (Acute) History of bladder cancer (Acute) Superficial Bladder CA, yearly cysto for surveillance. Dr. Montañodvanced care planning/counseling discussion (Acute) Palliative care encounter (Acute) Weight loss (Acute) PVD (peripheral vascular disease) (Chronic) Pain in both feet (Acute) Onychomycosis (Acute) High risk for fracture due to osteoporosis by DEXA scan (Acute ~03/2023) RX FosamaxPoor manual dexterity (Acute) Lung nodule seen on imaging study (Acute ~10/2022) Annual LDCTImpaired gait and mobility (Acute) Chronic pain (Chronic) Due to OA shoulders, knees, Spinal stenosis. 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; cervical spondylosis; operated 08/03/16 Cervical myelopathy (Chronic) Spinal stenosis, lumbar region without neurogenic claudication (Acute 12/14/11) Osteoarthritis of spine with radiculopathy, cervical region (Acute 09/05/11) Sacroiliac joint dysfunction of right side (Acute) Spinal stenosis of lumbar region with radiculopathy (Acute) RLE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 [place] [facility] [place] (Acute 02/26/13) [place] cardiac risk >20% in next 10 years (Chronic) 2020: 32%Magnesium-losing nephropathy (Chronic) very mild; tx spironolactoneGERD (gastroesophageal reflux disease) (Chronic) Depression (Chronic 07/01/14) Medical marijuana use (Chronic) Arthritis of left glenohumeral joint (Chronic ~07/01/14) Medical History Abnormal weight loss [facility]rothelial carcinoma of bladder ([facility]2016[facility] Acute cystitis Pneumonia Acute UTI Weakness Acute UTI Anemia Smoker Unintentional weight loss Leg edema Delayed gastric emptying mildHyperlipidemia Neuropathy Sessile colonic polyp (03/14/18) Osteopenia (12/14/11) Osteoporosis wrist, osteopenia hip, normal bone density of spine 2016 osteopenia 2011 Adhesive capsulitis of left shoulder Injected 12/11/2018Spinal stenosis Hx of bacterial pneumonia Surgical History H/O laminectomy (~06/2021) APD-L3-L4 laminectomy, medial fa for decompression of stenosis, lateral disectomy [id number] spondylosis 11/03/20 C5-[address] Everett Meehan 11/04/20 D/C'd homeStatus post shoulder hemiarthroplasty History of hemiarthroplasty of left shoulder 09/07/2015H/O cystoscopy (09/06/18) w/transurethral resection of bladder tumors-Dr MejiasonTenotomy and debridement tendon L shoulder (10/25/17) Rotator Cuff Repair Repair of umbilical hernia Hemiarthroplasty (09/07/15) L shoulder Dr LuzColonoscopy - MAC (03/12/18) Colon,transverse,polyp,biopsy - fragment of sessile serrated adenoma. (Dr Neely)Breast, Lumpectomy Arthroplasty of knee Per patient she has not had a TOTAL KNEEAnterior Fusion Cervical Spine C3-C5 (07/31/16) [place] [facility] [place] Social History/Home Situation: Lives alone [address] with a rope to ho,d onto to enter. independent with 4WW within home. Pt reports she sometimes does not use the 4WW when in the kitchen and just holds onto the counter.. Equipment Owned/DME: 4WW, w/c Subjective: Pt reports she does not want home PT or outpatient at this time. She states if she feels she needs it she will call Michael's office to see someone. Objective: [] General Observation: Thin elderly female presented reclined in chair . Mental Status: A+Ox4, able to follow instructions, cooperative, agreeable to participate in Assessment Pain:left shoulder 2/10 ROM: [] Right Upper Extremity: WFL Left Upper Extremity: WFL except shoulder flexion 95 degrees Right Lower Extremity:WFL Left Lower Extremity:WFL Strength: Right Upper Extremity:Grossly 4/5 Left Upper Extremity: grossly 3+/5 Right Lower Extremity:Hip flexion: 3+ /5; hip abduction: 3/5; hip extension: 3 /5; knee extension:3+ /5; knee flexion: 3/5 ankle DF: 3 /5 ; ankle PF:3 /5 Left Lower Extremity: Hip flexion:3+ /5; hip abduction: 3 /5; hip extension:3 /5; knee extension: 3 +/5; knee flexion: 3 /5 ankle DF: 3 /5 ; ankle PF: 3 /5 Sensation: intact Bed Mobility/Transfers: [] Supine to sit Independent Sit to stand Independent to 4WW Stand to sit Independent from 4WW including brake management Bed to chair with 4WW SBA Gait: Patient ambulated with 4 wheeled walker standby assist with loss of balance x 1 when she attempted to adjust her shirt while continuing to take steps. Patient required physical assistance to regain loss of balance. Stairs: 2 steps with BUE on 1 rail to simulate holding rope to enter her home. Step to pattern with CGA Balance: [] Static Sitting: Normal Dynamic Sitting: Normal Static Standing: Good Dynamic Standing: Good minus Special Tests: [] Mobility Limitations Standardized Measure [] [facility] AM-PAC 6 clicks Basic Mobility Inpatient Short Form: [] Raw Score: 23 CMS Score: 11.20% deficit Informed Consent/Education: Patient instructed in purpose of PT consult. Assessment: Patient is a 75 yo female who presents with clinical signs and symptoms consistent with current/admitting diagnoses that have resulted to mobility limitations, gait instability, generalized weakness, and impairment of motor control as demonstrated by the following impairment level findings: 1. Decreased strength / motor control to BLE major muscle groups proximal >distal 2. Impaired standing balance 3. Impaired functional activity tolerance 4. Impaired left Shoulder ROM Impairments are contributing to the following functional limitations: 1. Inability to safely ambulate without assistive device 2. Increase completion time for mobility ADL performance 3. Increased fall risk 4. Difficulty performing stairs safely without assistance Patient is assessed as a low complexity based on the following: History: 75-year-old female with impairment level findings, functional limitations, and past medical history as indicated above Examination: Demonstrable impairment in strength, balance, and mobility level with underlying impairments and functional limitations as documented above Presentation: Stable Decision Making: Low Goals: N/A. PT evaluation Plan of Care/Treatment Plan: N/A. PT evaluation DISCHARGE RECOMMENDATIONS: Home with outpatient PT versus home health PT however patient declines both at this time stating she will call when she feels she needs outpatient PT TREATMENT CODE/TIME: [id number] Thank you for the opportunity to participate in the care of this patient. Please sign an return this page within 30 days if you agree with the above POC. Thank you! Physician Signature Date [facility]
--- NOTE | 2025-04-15 11:30 | DSE_ITS ---
Date of service: 04/15/25 Time of Service: 11:31 DS: Diagnosis Discharge Diagnosis (1) Acute hypoxemic respiratory failure: Status: Acute (2) Multifocal pneumonia: Status: Acute (3) Abdominal pain: Status: Acute Discharge Plan Disposition Patient Disposition: Home Condition: Improving Discharge Details Reason For Visit: hypoxic resp failure Admit Date/Time: 04/14/25 15:51 Admit Provider: Javier Louise Attending Provider: Javier Louise Primary Care Provider: Chanel Nelson Hospital Course Hospital Course: This 75-year-old female patient with past medical history significant for bladder cancer, PVD, osteoporosis, lung nodule in 2022, essential hypertension, depression, medical marijuana use, ureterolithiasis initially presented to the ED at [facility] on 04/14/2025 with complaints of abdominal pain and subsequent episode of hypoxia with sats at 88% on ambulation resolving on 2 L of O2 by nasal cannula in the ED. CT of the abdomen and pelvis was negative for any acute findings except for bronchiectasis, bronchial wall thickening and left basilar infiltrates. Chest x-ray showed multifocal bilateral infiltrates to the left lungs with coarsening of interstitial markings. Urine was positive for UTI; culture was ordered and pending. Blood work was unremarkable except for sodium at 134 BUN at 130 with a creatinine at 1.0 pointing to dehydration. The patient was admitted to the medical surgical floor for acute hypoxic respiratory failure in the setting of pneumonia and treated with ceftriaxone and doxycycline IV. Oxygen requirement resolved and the patient will be discharged home on oral medicine with follow-up with her primary care practitioner within 7 days of discharge. Patient declined to home health physical therapy. Recommendations for PCP follow-up: Please follow-up on urine cultures Needs a pulmonary referral Discuss urology referral with patient Discussed with Home Meds and New Rx's Prescriptions: New doxycycline hyclate 100 mg Capsule 100 mg PO BID Qty: 8 0RF guaifenesin [Mucus Relief ER] 600 mg Tablet Extended Release 12hr 600 mg PO BID Qty: 10 0RF cefpodoxime 200 mg tablet 200 mg PO BID Qty: 10 0RF Rx Instructions: must administer with a meal/food Continued acetaminophen [Tylenol Arthritis Pain] 650 mg tablet extended release 650 mg PO BID PRN ketoconazole 2 % cream 1 applic topical DAILY Qty: 120 6RF Rx Instructions: Apply to toenails once daily simethicone [Gas Relief (simethicone)] 80 mg tablet,chewable 80 mg PO TID-QID PRN (Reason: abdominal distention) Qty: 40 0RF Rx Instructions: Bloating, bubbling/gas in abdomen ondansetron 4 mg tablet,disintegrating 4 mg PO DAILY PRN (Reason: nausea and vomiting) Qty: 40 12RF ibuprofen 200 mg capsule 200 mg PO BID PRN pantoprazole 20 mg tablet,delayed release (DR/EC) See Rx Instructions .ROUTE .COMPLEX Qty: 180 3RF Dose Instruction: TAKE 1 TABLET TWICE DAILY FOR REFLUX Rx Instructions: TAKE 1 TABLET TWICE DAILY FOR REFLUX duloxetine 60 mg capsule,delayed release(DR/EC) 60 mg PO DAILY Qty: 90 3RF pravastatin 40 mg tablet See Rx Instructions .ROUTE .COMPLEX Qty: 90 3RF Dose Instruction: TAKE 1 TABLET EVERY DAY Rx Instructions: TAKE 1 TABLET EVERY DAY pregabalin 225 mg capsule 225 mg PO BID Qty: 60 0RF Rx Instructions: Dose increase back to baseline Neuro dosing 10/10/2024 mirtazapine 30 mg tablet 30 mg PO QHS Qty: 90 3RF celecoxib 200 mg capsule See Rx Instructions .ROUTE .COMPLEX Qty: 90 3RF Dose Instruction: TAKE 1 CAPSULE EVERY DAY IN THE MORNING WITH FOOD FOR CHRONIC SPINE PAIN (CERVICAL AND LUMBAR) Rx Instructions: TAKE 1 CAPSULE EVERY DAY IN THE MORNING WITH FOOD FOR CHRONIC SPINE PAIN (CERVICAL AND LUMBAR) potassium chloride 10 mEq capsule, extended release See Rx Instructions .ROUTE .COMPLEX Qty: 90 3RF Dose Instruction: TAKE 1 CAPSULE EVERY DAY Rx Instructions: TAKE 1 CAPSULE EVERY DAY spironolactone 25 mg tablet See Rx Instructions .ROUTE .COMPLEX Qty: 90 3RF Dose Instruction: TAKE 1 TABLET EVERY DAY FOR MAGNESIUM WASTING Rx Instructions: TAKE 1 TABLET EVERY DAY FOR MAGNESIUM WASTING cetirizine 10 mg tablet See Rx Instructions .ROUTE .COMPLEX Qty: 90 0RF Dose Instruction: TAKE 1 TABLET ONE TO TWO TIMES PER DAY. TAKE LOWEST EFFECTIVE DOSE Rx Instructions: TAKE 1 TABLET ONE TO TWO TIMES PER DAY. TAKE LOWEST EFFECTIVE DOSE magnesium oxide 400 mg (241.3 mg magnesium) tablet See Rx Instructions .ROUTE .COMPLEX Qty: 90 3RF Dose Instruction: TAKE 1 TABLET EVERY DAY Rx Instructions: TAKE 1 TABLET EVERY DAY amlodipine 2.5 mg tablet See Rx Instructions .ROUTE .COMPLEX Qty: 90 3RF Dose Instruction: TAKE 1 TABLET EVERY DAY Rx Instructions: TAKE 1 TABLET EVERY DAY Discharge Instructions Additional Instructions: hypomagnesemia Referrals: Chanel Nelson NP [Primary Care Provider, Medicine] Referral Note: follow-up within 7 days of discharge Activity:: Activity as Tolerated Equipment/Supplies:: No Equipment Needed Diet:: heart healthy DS: Summary Time Spent with Patient providing and/or coordinating discharge services: Greater than 30 minutes Status at Discharge Functional status at discharge: independent ambulation Overall status at discharge: patient is progressing back to baseline Mental Status: mental status grossly normal Speech and Movement: speech and movement normal Mood: congruent mood Affect: normal affect Quality:SDOH Health Related Social Needs: Health related social needs risk of homeless house/eco n circumstance lonely/isolated education Health related social needs details so far im good Health related social needs details: so far im good Exam Narrative Exam Narrative: Alert and x 3, no neurological neurodeficit, ambulatory in the room, clear lungs with left-sided scattered ronchi, S1-S2, no murmur, positive pulses upper extremity, abdomen is nonacute, no CVA tenderness, moves all 4 extremities. Psych Mental Status: mental status grossly normal Speech and Movement: speech and movement normal Mood: congruent mood Affect: normal affect DS: Data Vitals/I&O Vitals and I&O: Vital Signs Temperature 36.9 C 04/15/25 08:06 Temperature Source Skin 04/15/25 08:06 Pulse 86 04/15/25 08:06 Pulse Rhythm Regular 04/14/25 18:00 Pulse 80 04/14/25 15:46 Respiratory Rate 14 04/15/25 08:06 Respiratory Effort Normal 04/14/25 18:00 Respiratory Depth Normal 04/14/25 18:00 Respiratory Pattern Normal 04/14/25 18:00 Blood Pressure 113/67 04/15/25 08:06 Blood Pressure Mean 82 04/15/25 08:06 Blood Pressure Position Sitting 04/14/25 11:17 Pulse Oximetry 95 04/15/25 08:06 Oxygen Delivery Method Room Air 04/15/25 08:06 Oxygen Flow Rate 0 04/15/25 08:06 Pain Level 0 04/15/25 08:06 Intake & Output 04/14/25 04/14/25 04/15/25 11:59 23:59 11:59 Intake Total 420 / 420 200 / 200 Output Total 450 / 450 Balance 420 / 420 -250 / -250 Weight 49.895 kg 49.895 kg Intake: IV Oral 400 / 400 200 / 200 Output: Urine 450 / 450 Other: Urine Color Yellow Urine Appearance Clear Comment reported to that pt voided, ua brought down Data Completed and Pending Labs on day of discharge: Labs from last 24 hours 04/15/25 04/14/25 04/14/25 05:53 18:56 16:50 WBC 9.63 RBC 3.87 L Hgb 10.8 L Hct 33.4 L MCV 86 MCH 27.9 MCHC 32.3 RDW 14.6 Plt Count 209 MPV 10.6 Immature Gran % 0.3 Neutrophils % 76.1 Lymphocytes % 13.2 Monocytes % 7.9 Eosinophils % 2.2 Basophils % 0.3 Nucleated RBC % 0.0 Absolute Neutrophils 7.33 H Absolute Lymphocytes 1.27 Absolute Monocytes 0.76 Absolute Eosinophils 0.21 Absolute Basophils 0.03 VBG pH VBG pCO2 VBG pO2 VBG HCO3 VBG Total CO2 VBG O2 Saturation VBG Base Excess VBG Lactate Sodium 136 Potassium 3.6 D Chloride 102 Carbon Dioxide 25.7 Anion Gap 8.3 BUN 26 H Creatinine 0.7 Est GFR (CKD-EPI 2020) 90.14 Glucose 85 Calcium 8.9 Magnesium 1.8 Total Bilirubin AST ALT Alkaline Phosphatase Troponin I Total Protein Albumin Lipase Procalcitonin Urine Color Yellow Urine Clarity Clear Urine pH 7.0 Ur Specific [place] 1.010 Urine Protein Negative Urine Ketones Trace H Urine Blood Trace-intact H Urine Nitrite Positive H Urine Bilirubin Negative Urine Urobilinogen 0.2 Ur Leukocyte Esterase Trace H Urine RBC 0-2 Urine WBC 3-5 Ur Epithelial Cells Rare Urine Crystals Negative Urine Bacteria Rare Urine Casts Negative Urine Mucus Negative Ur Culture Indicated? No Urine Glucose Negative COVID-19 Source Nasopharynx SARS-CoV-2 (PCR) Negative Influenza Type A (PCR) Negative Influenza Type B (PCR) Negative RSV (PCR) Negative Add-On Test Request 04/14/25 04/14/25 04/14/25 14:19 12:55 12:55 WBC RBC Hgb Hct MCV MCH MCHC RDW Plt Count MPV Immature Gran % Neutrophils % Lymphocytes % Monocytes % Eosinophils % Basophils % Nucleated RBC % Absolute Neutrophils Absolute Lymphocytes Absolute Monocytes Absolute Eosinophils Absolute Basophils VBG pH VBG pCO2 VBG pO2 VBG HCO3 VBG Total CO2 VBG O2 Saturation VBG Base Excess VBG Lactate 1.1 Sodium Potassium Chloride Carbon Dioxide Anion Gap BUN Creatinine Est GFR (CKD-EPI 2020) Glucose Calcium Magnesium Total Bilirubin AST ALT Alkaline Phosphatase Troponin I Cancelled 6 Total Protein Albumin Lipase 32 Procalcitonin < 0.10 Urine Color Urine Clarity Urine pH Ur Specific [place] Urine Protein Urine Ketones Urine Blood Urine Nitrite Urine Bilirubin Urine Urobilinogen Ur Leukocyte Esterase Urine RBC Urine WBC Ur Epithelial Cells Urine Crystals Urine Bacteria Urine Casts Urine Mucus Ur Culture Indicated? Urine Glucose COVID-19 Source SARS-CoV-2 (PCR) Influenza Type A (PCR) Influenza Type B (PCR) RSV (PCR) Add-On Test Request DONE DONE 04/14/25 11:43 WBC 8.45 RBC 3.91 L Hgb 10.8 L Hct 34.0 L MCV 87 MCH 27.6 MCHC 31.8 L RDW 14.6 Plt Count 208 MPV 10.1 Immature Gran % 0.4 Neutrophils % 78.0 Lymphocytes % 13.4 Monocytes % 6.9 Eosinophils % 0.9 Basophils % 0.4 Nucleated RBC % 0.0 Absolute Neutrophils 6.60 Absolute Lymphocytes 1.13 L Absolute Monocytes 0.58 Absolute Eosinophils 0.08 Absolute Basophils 0.03 VBG pH 7.42 H VBG pCO2 39 L VBG pO2 33 VBG HCO3 25 VBG Total CO2 23 L VBG O2 Saturation 61 VBG Base Excess 1 VBG Lactate Sodium 134 L Potassium 4.6 Chloride 100 Carbon Dioxide 25.4 Anion Gap 8.6 BUN 30 H Creatinine 1.0 Est GFR (CKD-EPI 2020) 58.75 Glucose 102 Calcium 9.5 Magnesium 1.7 L Total Bilirubin 0.6 AST 28 ALT 18 Alkaline Phosphatase 132 H Troponin I 5 Total Protein 7.6 Albumin 3.1 L Lipase Procalcitonin Urine Color Urine Clarity Urine pH Ur Specific [place] Urine Protein Urine Ketones Urine Blood Urine Nitrite Urine Bilirubin Urine Urobilinogen Ur Leukocyte Esterase Urine RBC Urine WBC Ur Epithelial Cells Urine Crystals Urine Bacteria Urine Casts Urine Mucus Ur Culture Indicated? Urine Glucose COVID-19 Source SARS-CoV-2 (PCR) Influenza Type A (PCR) Influenza Type B (PCR) RSV (PCR) Add-On Test Request PFSH All Active Problems (Updated 07/22/25 @ 12:28 by Kenia Moreland APRN) Abdominal pain (Acute) Multifocal pneumonia (Acute) Acute hypoxemic respiratory failure (Acute) Hypomagnesemia (Acute) History of bladder cancer (Acute) Superficial Bladder CA, yearly cysto for surveillance. Dr. Wiggins Advanced care planning/counseling discussion (Acute) Palliative care encounter (Acute) Weight loss (Acute) PVD (peripheral vascular disease) (Chronic) Pain in both feet (Acute) Onychomycosis (Acute) High risk for fracture due to osteoporosis by DEXA scan (Acute ~03/2023) RX Fosamax Poor manual dexterity (Acute) Lung nodule seen on imaging study (Acute ~10/2022) Annual LDCT Impaired gait and mobility (Acute) Chronic pain (Chronic) Due to OA shoulders, knees, Spinal stenosis. 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/03/16 Cervical myelopathy (Chronic) Spinal stenosis, lumbar region without neurogenic claudication (Acute 12/14/11) Osteoarthritis of spine with radiculopathy, cervical region (Acute 09/05/11) Sacroiliac joint dysfunction of right side (Acute) Spinal stenosis of lumbar region with radiculopathy (Acute) 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 Dr Velazco, [facility] [place] [facility] Essential hypertension (Acute 02/26/13) [place] cardiac risk >20% in next 10 years (Chronic) 2020: 32% Magnesium-losing nephropathy (Chronic) very mild; tx spironolactone GERD (gastroesophageal reflux disease) (Chronic) Depression (Chronic 07/01/14) Medical marijuana use (Chronic) Arthritis of left glenohumeral joint (Chronic ~07/01/14) Medical History Abnormal weight loss Urothelial carcinoma of bladder (~2016) [facility] CHF exacerbation Acute cystitis Pneumonia Acute UTI Weakness Acute UTI Anemia Smoker Unintentional weight loss Leg edema Delayed gastric emptying mild Hyperlipidemia Neuropathy Sessile colonic polyp (03/14/18) Osteopenia (12/14/11) Osteoporosis wrist, osteopenia hip, normal bone density of spine 2017 osteopenia 2011 Adhesive capsulitis of left shoulder Injected 12/11/2018 Spinal stenosis Hx of bacterial pneumonia Surgical History H/O laminectomy (~06/2021) APD-L3-L4 laminectomy, medial fa for decompression of stenosis, lateral disectomy [id number] Cervical spondylosis 11/03/20 C5-[address] Everett Dunbar11/04/20 D/C'd home Status post shoulder hemiarthroplasty History of hemiarthroplasty of left shoulder 09/07/2015 H/O cystoscopy (09/06/18) w/transurethral resection of bladder tumors-Dr Wiggins Tenotomy and debridement tendon L shoulder (10/25/17) Rotator Cuff Repair Repair of umbilical hernia Hemiarthroplasty (09/07/15) L shoulder Dr Luz Colonoscopy - MAC (03/12/18) Colon,transverse,polyp,biopsy - fragment of sessile serrated adenoma. (Dr Neely) Breast, Lumpectomy Arthroplasty of knee Per patient she has not had a TOTAL KNEE Anterior Fusion Cervical Spine C3-C5 (07/31/16) Jul 2016, [facility] [place] Family History Father Essential hypertension Glaucoma Alzheimer's dementia Social History Smoking/Tobacco Use Status: Former Tobacco Use Quit Date: 02/10/25 Smoking risk assessment performed?: Yes Alcohol Intake: former Drug use: Daily Substance use type: marijuana Details: marijuana: uses qd Last used Monday09/30/23 Household members: none Housing: house Number of Children: 0 Pets and animals: Yes Pets and animals: cat(s) and dog(s) Current gender identity: female What type of physical activity do you participate in: none and other Details: PT 2 xweek Frequency: 1-2 times per week Seatbelt use: always Drive intox or ride w/intox service parts driver: No Working smoke detector in home: Yes Fire extinguisher in home: Yes Carbon monox detector in home: Yes Do you feel safe at home: Yes Do you feel safe in your relationship?: Yes Time Spent with Patient Time Spent with Patient: 70-84 minutes4 Time was spent: preparing to see the patient(eg.review tests), obtaining and/or reviewing separately otained hiistory, ordering medications,tests, procedures, referring, communicating with other health progressive care nurse, indepentently interpreting results, counseling the patient and care coordination
--- NOTE | 2025-04-15 13:51 | CMDISCH_ITS ---
Date of service: 04/15/25 Time of Service: 13:51 LACE Index Scoring Tool Questions: Length of Stay (in days): 1 Was the patient admitted via the E.D.?: Yes Comorbidities: PVD, Congestive Heart Failure, Chronic Pulmonary Disease and Any Tumor E.D. Visits: 2 Answers: Total Score: 11 Risk of Readmission: High Risk Care Management Discharge Plan Reason for Hospitalization: pneumonia Discharge Plan: Belén will be discharged home with no new services. She will follow up with her community providers and plan of care and transport via private vehicle. Patient/Family Education Needs: review of discharge instructions, limitations, follow up plan and discuss Ask Me Three SDOH Health Related Social Needs: Health related social needs risk of homeless house/eco n circumstance lonely/isolated education Health related social needs details so far im good Health related social needs details: so far im good
--- NOTE | 2025-04-15 14:26 | CHAPLAIN ---
Belén was up in the chair when I visited. I noticed her [employer] hat and she told me that she's from [place], [place], [place] outside of [facility] and has been a long-time [employer] fan. She lives by herself in a single family home [facility], with no family close by but friends. She hopes to be going home soon. I explained my role and offered support.
== END 2025-04-15 16:25 | disposition home or self-care (01) ==
LOC: ER 14:32 → MS 16:50
PROVIDERS: Nurse Practitioner Acute Care; Registered Nurse Emergency; Admitting Provider Family Medicine; Emergency Provider Emergency Medicine; PCP Nurse Practitioner Adult Health; Responsible Provider Nurse Practitioner Acute Care; Visit Provider Family Medicine
DX: J96.01 Acute respiratory failure with hypoxia (principal); J18.9 Pneumonia, unspecified organism; R10.9 Unspecified abdominal pain; E83.42 Hypomagnesemia; I73.9 Peripheral vascular disease, unspecified; R91.1 Solitary pulmonary nodule; G62.9 Polyneuropathy, unspecified; R20.2 Paresthesia of skin; C67.9 Malignant neoplasm of bladder, unspecified; B35.1 Tinea unguium; G89.29 Other chronic pain; Z74.09 Other reduced mobility; K21.9 Gastro-esophageal reflux disease without esophagitis; F32.A Depression, unspecified; I10 Essential (primary) hypertension; Z87.891 Personal history of nicotine dependence; M81.0 Age-related osteoporosis without current pathological fracture; F12.90 Cannabis use, unspecified, uncomplicated; N39.0 Urinary tract infection, site not specified; E86.0 Dehydration
CPT/HCPCS: 00123; 36415; 80048; 80053; 82805; 83690; 84145; 87637; 93005; 96360; 96365; 96372; 96375; 97161; 99285; J1650; 71045; 74177; 81003; 81015; 83605; 83735; 84484; 85025; 87086; 93010; 99223; 99239; G0378; J0696; J2405

== ENCOUNTER 2025-05-05 02:05 | Outpatient (CLI) | payer MEDICARE, MEDICAID, SELFPAY ==
--- NOTE | 2025-05-05 07:09 | DI.CT_ITS ---
Exam(s) CT CHEST/ABD/PEL W EXAM: CT CHEST/ABD/PEL W CLINICAL HISTORY: F/U lung nodule;unintentional wt loss; ?mass. TECHNIQUE: Imaging Protocol: Axial computed tomography images with coronal and sagittal reformatted images were created and reviewed. Computer aided detection (CAD) was utilized. CONTRAST MATERIAL: Intravenous: Omnipaque 350 Contrast volume:75 ml Oral: Yes COMPARISON: CR,XR XR CHEST 2V PA LATERAL from 09/25/[address] CHEST W from 01/24/2023 CR XR CHEST 1V IN DI DEPT from 04/14/[address] ABDOMEN PELVIS W from 04/14/2025 FINDINGS: CHEST: Pulmonary parenchyma: Moderate emphysematous changes. Increase in size previously noted nodule in the right upper lobe to 4.6 millimeters. New multiple nodular densities are seen in the right upper lobe, the largest measuring 9 by 7 millimeters. Multiple nodular densities seen in the superior segment of the right lower lobe which were not present previously. There is nodular thickening along the right major fissure which was not present previously. There are 2 stable pleural based nodule in the posterior right lower lobe. Previously noted nodule at the left lung base now measures 10 x 7 5 millimeters compared with 6 7 millimeters on the previous exam. Multiple patchy density seen posteriorly in the left lower lobe which appears similar to the recent abdomen pelvic CT. Tracheobronchial tree: Bilateral lower lobe bronchiectasis and distal mucous plugging.. Pleura: No effusion or pneumothorax. Mediastinum: Within normal limits. Pulmonary arteries: No visible emboli. Cardiovascular: Normal heart size. Severe coronary artery calcifications. No pericardial effusion. Thoracic aorta non-dilated. Bones: Left shoulder prosthesis.. No lytic or blastic lesions. Old left rib fractures. No compression fractures. Advanced degenerative changes in the spine as well as scoliosis. Soft tissues: Unremarkable. ABDOMEN and PELVIS: Liver: Normal density. No suspicious mass. Gallbladder and biliary tract: No evidence of stones or wall thickening. No biliary dilatation. Pancreas: Normal density, no abnormal calcifications or inflammatory process. Spleen: Normal. Kidneys: Normal size, contour and axis. No radiodense stones. No obstructive uropathy. No suspicious masses seen. Adrenal glands: No masses seen. Stable bilateral adrenal thickening. Aorta: Abdominal portion non-dilated. Severe atherosclerotic calcifications. Lymph nodes: Within normal limits. Soft tissues: Unremarkable. Bladder: Unremarkable. Bowel: No obstruction or bowel wall thickening. Large quantity of stool noted throughout the colon. Peritoneal cavity: No ascites. No focal collection. No mesenteric inflammatory response. No free air. Bones: Severe degenerative changes in the spine. L3 spondylolysis and L3-4 spondylolisthesis appears unchanged. Advanced degenerative changes also apparent in the right hip. Reproductive organs: Uterine fibroids again noted. IMPRESSION: Bilateral pulmonary nodules some of which have shown increase in size compared with 2023. Increased densities at the posterior lung bases could represent residual infiltrates however metastatic disease is not excluded. Underlying moderate emphysematous changes. Bronchiectasis and disc mucous plugging. No acute abnormality in the abdomen or pelvis. Large quantity of fecal material. RADIATION DOSE DELIVERED: 160.17mGy.cm Total DLP DATA REPOSITORY: All CT scans at this facility are submitted to the National Radiology Data Registry (NRDR) Dose Index Registry (DIR) with the [employer] (A[employer]). RADIATION OPTIMIZATION: All CT scans at this facility use at least one of these dose optimization techniques: automated exposure control; mA and/or kV adjustment per patient size (includes targeted exams where dose is matched to clinical indication); or iterative reconstruction.
[2025-05-05 09:44] LABS: Estimated GFR 52.40 (mL/min/1.73m2)
[2025-05-05] MEDS: Barium Sulfate 2% W/V-Creamy Vanilla Smoothie 450 ML BTL PO ×2 (11:07→11:09)
[2025-05-05] MEDS: Omnipaque 350 MG/ML 100 ML BTL IJ (11:08)
[2025-05-05] MEDS: Normal Saline - Diluent 50 ML VIAL IJ (11:09)
== END 2025-05-05 02:25 ==
LOC: DI 02:05
PROVIDERS: PCP Nurse Practitioner Adult Health; Visit Provider Nurse Practitioner Adult Health
DX: J18.8 Other pneumonia, unspecified organism (principal); R63.4 Abnormal weight loss; R91.1 Solitary pulmonary nodule; R10.32 Left lower quadrant pain
CPT/HCPCS: 74177; 71260; 82565; J3490

== ENCOUNTER 2025-05-08 15:16 | Observation (INO) | payer MEDICARE, MEDICAID, SELFPAY ==
[2025-05-08] VITALS (46 sets, daily range): BP systolic 100–172; BP diastolic 51–79; PULSE 62–115; RESP 11–36; TEMP 36.1–36.6; O2SAT 89–100
--- NOTE | 2025-05-08 15:45 | DI.CT_ITS ---
Exam(s) CT CHEST PE CTA EXAM: CT CHEST PE CTA CLINICAL HISTORY: chest pain, sob, fatigue, recent pna/hosp. TECHNIQUE: Imaging Protocol: Axial CT angiography was performed with multi- slice acquisition and multi-planar and/or 3D reconstructions. Lung Computer Aided Detection (CAD) was utilized. CONTRAST MATERIAL: Intravenous: Omnipaque 350 contrast volume:60 mL COMPARISON: CT CT CHEST W from 01/24/2023 CR XR CHEST 1V IN DI DEPT from 04/14/[address] CHEST/ABD/PEL W from 05/05/2025 FINDINGS: Tracheobronchial tree: There is no bronchiectasis. There is mucous plugging seen in the lower lobes bilaterally, right greater than left. Pulmonary parenchyma: Moderate emphysematous changes are present in the lungs. The infiltrate in the left lower lobe has shown some improvement compared to the prior examination. The areas of nodularity in the right upper and right middle lobe are stable since 05/05/2025. The infiltrate in the right lower lobe appears similar compared to the prior examination. There are no new infiltrates present. Pulmonary Arteries: No evidence of filling defect to suggest pulmonary emboli. Mediastinum and Amarilis: No dominant adenopathy or fluid collection. The esophagus is unremarkable. Visualized thyroid gland: Unremarkable. Pleura: No effusion or pneumothorax. Heart: The heart is not dilated. Moderate three-vessel coronary artery calcification is present. No pericardial effusion. Aorta: Thoracic aorta non-dilated. Atherosclerotic calcification is present. Upper abdomen: Unremarkable. Soft tissues: Unremarkable. Bones: Within normal limits for the patient's age.There is artifact from the patient's left shoulder arthroplasty. IMPRESSION: 1. No evidence of pulmonary embolism or aneurysm. 2. Slight interval improvement of the pulmonary infiltrates since 05/05/2025, particularly in the left lower lobe. 3. No change in the pulmonary nodules since 05/05/2025. 4. There is mucous plugging seen in the lower lobes bilaterally. RADIATION DOSE DELIVERED: 56.33mGy.cm Total DLP DATA REPOSITORY: All CT scans at this facility are submitted to the National Radiology Data Registry (NRDR) Dose Index Registry (DIR) with the [employer] (ACR). RADIATION OPTIMIZATION: All CT scans at this facility use at least one of these dose optimization techniques: automated exposure control; mA and/or kV adjustment per patient size (includes targeted exams where dose is matched to clinical indication); or iterative reconstruction.
--- NOTE | 2025-05-08 15:45 | RT.EKG_ITS ---
APPROVED REPORT Exam: Resting ECG Reason for Exam: shortness of breath Patient Location: E HR:65 bpm ECG Measurements Heart Rate 65 AXIS WY 139 P 69 QRSd 77 QRS 47 QT 433 T 30 QTc 450 Conclusion Sinus rhythm...normal P axis, V-rate 60- 99 I have reviewed and interpreted ECG and agree with software generated interpretation.
[2025-05-08 16:06] LABS: Abs Immature Grans 0.02 10^3/uL (0.0-0.06); HCT 33.2 % (36.0-46.0); HGB 10.9 g/dL (11.2-15.7); Immature Grans % 0.4 %; MCH 28.4 pg (27.0-33.0); MCHC 32.8 % (32.0-36.0); MCV 87 fL (80-95); MPV 9.9 fL (8.0-11.0); Platelet Count 241 10^3/uL (130-400); RBC 3.84 10^6/uL (3.93-5.22); RDW 14.4 % (11.7-14.6); RDW-SD 45.5 fL; WBC 5.42 10^3/uL (4.4-10.8)
[2025-05-08] MEDS: Albuterol/Ipratropium 3 ML UPD VIAL UPD ×2 (16:09→17:52)
[2025-05-08] MEDS: Ondansetron 4 MG/2 ML VIAL IVP (16:19)
[2025-05-08 16:31] LABS: ALT 15 U/L (14-59); AST 17 U/L (15-37); Albumin 3.4 g/dL (3.4-5.0); Alkaline Phosphatase 111 U/L (46-116); Anion Gap 8.6 mmol/L (3-11); BUN 18 mg/dL (7-18); Bilirubin, Total 0.5 mg/dL (0.2-1.0); CO2 27.4 mmol/L (21.0-32.0); Calcium 9.1 mg/dL (8.5-10.1); Chloride 98 mmol/L (98-107); Estimated GFR 90.14 (mL/min/1.73m2); Glucose 110 mg/dL (74-106); NT-proBNP 757 pg/mL (<300); Potassium 4.0 mmol/L (3.5-5.1); Sodium 134 mmol/L (136-145); Total Protein 7.4 g/dL (6.4-8.2); Troponin I 6 ng/L (<or=51)
[2025-05-08] MEDS: Normal Saline - Diluent 50 ML VIAL IJ (16:47)
[2025-05-08] MEDS: Omnipaque 350 MG/ML 100 ML BTL 60 ML IJ (16:48)
[2025-05-08] MEDS: Normal Saline Flush 10 ML SYR IVP (16:50)
[2025-05-08 17:23] LABS: Troponin I 5 ng/L (<or=51)
[2025-05-08] MEDS: methylPREDNISolone SUCC 125 MG VIAL 80 MG IVP (17:53)
[2025-05-08] MEDS: levoFLOXacin 500 MG, levoFLOXacin 250 MG 750 MG PO (18:32)
--- NOTE | 2025-05-08 18:46 | W.ED.GENAD ---
Discharge Plan Disposition Patient Disposition: Admit to [facility] Condition: Serious Discharge Details Clinical Impression: Acute exacerbation of chronic obstructive pulmonary disease (COPD), Pneumonia Admit Date/Time: 05/08/25 18:58 Admit Provider: Javier Louise Attending Provider: Javier Louise Primary Care Provider: Chanel Nelson ED Provider: Юлия Puente Discharge Data Discharge Date/Time-TO BE ENTERED AT DEPARTURE: 05/08/25 20:53 HPI General Date/Time Provider Initiated Documentation: 05/08/25 15:33. HPI Narrative: 75-year-old female with worsening dyspnea and weakness over 2 days. Recently treated for pneumonia, initially improved, now worsening. No inhalers at home. Stopped smoking in August 2024, continues marijuana use. Denies chest pain, calf pain, swelling, fever, or chills. Positive for nausea. No known history of COPD. Related Data Home Medications ?Medication ?Instructions ?Recorded ?Confirmed ketoconazole 2 % topical cream 1 applic topical DAILY #120 grams 11/14/23 05/08/25 simethicone 80 mg chewable tablet 80 mg PO TID-QID PRN abdominal 07/03/24 05/08/25 (Gas Relief (simethicone)) distention #40 tabs ondansetron 4 mg disintegrating 4 mg PO DAILY PRN nausea and 07/29/24 05/08/25 tablet vomiting #40 tabs pantoprazole 20 mg tablet,delayed See Rx Instructions .Route 11/06/24 05/08/25 release .COMPLEX #180 tabs duloxetine 60 mg capsule,delayed 60 mg PO DAILY #90 caps 12/12/24 05/08/25 release pravastatin 40 mg tablet See Rx Instructions .Route 01/20/25 05/08/25 .COMPLEX #90 tabs pregabalin 225 mg capsule 225 mg PO BID #60 caps 02/04/25 05/08/25 mirtazapine 30 mg tablet 30 mg PO QHS #90 tabs 02/05/25 05/08/25 acetaminophen 650 mg 650 mg PO BID PRN 02/18/25 05/08/25 tablet,extended release (Tylenol Arthritis Pain) ibuprofen 200 mg capsule 200 mg PO BID PRN 02/18/25 05/08/25 celecoxib 200 mg capsule See Rx Instructions .Route 02/24/25 05/08/25 .COMPLEX #90 caps potassium chloride 10 mEq See Rx Instructions .Route 02/24/25 05/08/25 capsule,extended release .COMPLEX #90 caps cetirizine 10 mg tablet See Rx Instructions .Route 03/24/25 05/08/25 .COMPLEX #90 tabs spironolactone 25 mg tablet See Rx Instructions .Route 03/24/25 05/08/25 .COMPLEX #90 tabs magnesium oxide 400 mg (241.3 mg See Rx Instructions .Route 03/31/25 05/08/25 magnesium) tablet .COMPLEX #90 tabs amlodipine 2.5 mg tablet See Rx Instructions .Route 04/03/25 05/08/25 .COMPLEX #90 tabs doxycycline hyclate 100 mg capsule 100 mg PO BID #8 caps 04/15/25 05/08/25 guaifenesin 600 mg tablet, 600 mg PO BID #10 tabs 04/15/25 05/08/25 extended release 12 hr (Mucus Relief ER) prednisone 20 mg tablet 40 mg (2 x 20 mg) PO .daily in AM 05/08/25 05/08/25 #10 tabs Previous Rx's ?Medication ?Instructions ?Recorded ketoconazole 2 % topical cream 1 applic topical DAILY #120 grams 11/14/23 simethicone 80 mg chewable tablet 80 mg PO TID-QID PRN abdominal 07/03/24 (Gas Relief (simethicone)) distention #40 tabs ondansetron 4 mg disintegrating 4 mg PO DAILY PRN nausea and 07/29/24 tablet vomiting #40 tabs pantoprazole 20 mg tablet,delayed See Rx Instructions .Route 11/06/24 release .COMPLEX #180 tabs duloxetine 60 mg capsule,delayed 60 mg PO DAILY #90 caps 12/12/24 release pravastatin 40 mg tablet See Rx Instructions .Route 01/20/25 .COMPLEX #90 tabs pregabalin 225 mg capsule 225 mg PO BID #60 caps 02/04/25 mirtazapine 30 mg tablet 30 mg PO QHS #90 tabs 02/05/25 celecoxib 200 mg capsule See Rx Instructions .Route 02/24/25 .COMPLEX #90 caps potassium chloride 10 mEq See Rx Instructions .Route 02/24/25 capsule,extended release .COMPLEX #90 caps cetirizine 10 mg tablet See Rx Instructions .Route 03/24/25 .COMPLEX #90 tabs spironolactone 25 mg tablet See Rx Instructions .Route 03/24/25 .COMPLEX #90 tabs magnesium oxide 400 mg (241.3 mg See Rx Instructions .Route 03/31/25 magnesium) tablet .COMPLEX #90 tabs amlodipine 2.5 mg tablet See Rx Instructions .Route 04/03/25 .COMPLEX #90 tabs doxycycline hyclate 100 mg capsule 100 mg PO BID #8 caps 04/15/25 guaifenesin 600 mg tablet, 600 mg PO BID #10 tabs 04/15/25 extended release 12 hr (Mucus Relief ER) prednisone 20 mg tablet 40 mg (2 x 20 mg) PO .daily in AM 05/08/25 #10 tabs Allergies Allergy/AdvReac Type Severity Reaction Status Date / Time ciprofloxacin Allergy Other (See Verified 05/08/25 15:24 Comment) codeine AdvReac Intermediate Nausea Verified 05/08/25 15:24 nitrofurantoin AdvReac Intermediate bloating, Verified 05/08/25 15:24 weakness oxycodone AdvReac Intermediate GI issues Verified 05/08/25 15:24 hydrochlorothiazide AdvReac Mild hypomagnese Verified 05/08/25 15:24 pop narcotics AdvReac Intermediate Nausea, Uncoded 05/08/25 15:24 vomiting General Stated Complaint: SOB ROSENDO: 3 Exam Narrative Exam Narrative: General Appearance: Alert and oriented. Vital signs: Within normal limits. HEENT: Within normal limits. Respiratory: Diminished breath sounds in bilateral lower lobes with crackles. No respiratory distress. Gastrointestinal: Mild diffuse abdominal tenderness without rebound or guarding. Skin: Warm and dry, no rash. Neurological: Normal. Course Vital Signs Vital signs: Vital Signs Temperature 36.6 C 05/08/25 15:20 Pulse 69 05/08/25 15:20 Respiratory Rate 18 05/08/25 15:20 Blood Pressure 155/79 H 05/08/25 15:20 Pulse Oximetry 92 05/08/25 15:20 Temperature 36.6 C 05/08/25 15:59 Temperature Source Tympanic 05/08/25 15:59 Pulse 73 05/08/25 16:20 Pulse 73 05/08/25 16:20 Respiratory Rate 21 05/08/25 16:20 Respiratory Effort Short of Breath 05/08/25 15:59 Respiratory Depth Normal 05/08/25 15:59 Respiratory Pattern Normal 05/08/25 15:59 Blood Pressure 157/77 H 05/08/25 16:16 Blood Pressure Mean 105 05/08/25 16:16 Pulse Oximetry 99 05/08/25 16:20 Oxygen Delivery Method Room Air 05/08/25 15:59 Oxygen Flow Rate 0 05/08/25 15:59 Lab/Test Results Lab/Test Results: 05/08/25 17:30 Blood Blood Culture - Pending 05/08/25 15:55 Blood Blood Culture - Pending Laboratory Tests Range/Units 05/08/25 05/08/25 15:55 16:57 WBC (4.4-10.8) 10^3/uL 5.42 RBC (3.93-5.22) 10^6/uL 3.84 L Hgb (11.2-15.7) g/dL 10.9 L Hct (36.0-46.0) % 33.2 L MCV (80-95) fL 87 MCH (27.0-33.0) pg 28.4 MCHC (32.0-36.0) % 32.8 RDW (11.7-14.6) % 14.4 Plt Count (130-400) 10^3/uL 241 MPV (8.0-11.0) fL 9.9 Immature Gran % % 0.4 Neutrophils % % 66.5 Lymphocytes % % 20.5 Monocytes % % 9.6 Eosinophils % % 2.6 Basophils % % 0.4 Nucleated RBC % (0.0-0.3) % 0.0 Absolute Neutrophils (1.2-6.7) 10^3/uL 3.61 Absolute Lymphocytes (1.2-3.4) 10^3/uL 1.11 L Absolute Monocytes (0.1-0.8) 10^3/uL 0.52 Absolute Eosinophils (0.0-0.7) 10^3/uL 0.14 Absolute Basophils (0.0-0.2) 10^3/uL 0.02 VBG Lactate (<or=2.0) mmol/L 1.0 Sodium (136-145) mmol/L 134 L Potassium (3.5-5.1) mmol/L 4.0 Chloride (98-107) mmol/L 98 Carbon Dioxide (21.0-32.0) mmol/L 27.4 Anion Gap (3-11) mmol/L 8.6 BUN (7-18) mg/dL 18 Creatinine (0.55-1.02) mg/dL 0.7 Est GFR (CKD-EPI 2020) (mL/min/1.73m2) 90.14 Glucose (74-106) mg/dL 110 H Calcium (8.5-10.1) mg/dL 9.1 Total Bilirubin (0.2-1.0) mg/dL 0.5 AST (15-37) U/L 17 ALT (14-59) U/L 15 Alkaline Phosphatase (46-116) U/L 111 Troponin I (<or=51) ng/L 6 5 NT-Pro-B Natriuret Pep (<300) pg/mL 757 H Total Protein (6.4-8.2) g/dL 7.4 Albumin (3.4-5.0) g/dL 3.4 Medical Decision Making - Laboratory Studies: - CBC: Baseline anemia, no acute change - Lactate: 1 - Troponins: 5 and 6 - BNP: 706 - Imaging: - CT chest: Unchanged pulmonary nodules predominantly on the right side, bilateral infiltrates with left side improving and right side unchanged, no evidence of PE - Diagnostic Procedure: - EKG: Nonischemic Assessment and plan: CBC with baseline anemia when compared to prior no acute change. CT chest shows evidence of pulmonary nodules predominantly on the right side, which are unchanged. Bilateral infiltrates, which left looks like it's improving. Right has been unchanged. Lactate one, two troponins five and six. Essentially negative with nonischemic EKG, BNP 706 no prior to compare. And there is one more. 6:37 PM 01m 21s With ambulation, patient desats to 87%. She does rebound over the course of a minute into the low 90s but states her oxygen is normally 96 to 98%. She was quite weak and took 5-6 steps, but then had to sit down and oxygen was 89% at this point. She does have a persistent right lower lobe infiltrate. The left lower lobe infiltrate seems to be improving. There is no evidence of PE per the radiologist. At this point, I think patient would benefit from admission with observation overnight, possibly a respiratory assessment, I think she may need an inhaled steroid at time of DC. She did receive ceftriaxone and doxycycline when she was here last. I will switch her to Levaquin as from a pneumonia standpoint, she doesn't have an elevated white blood cell count she is not in obvious respiratory distress and she doesn't meet sepsis criteria. Quality:SDOH Health Related Social Needs: Health related social needs risk of homeless house/econ circumstance lonely/isolated education Health related social needs details so far im good PFSH All Active Problems (Updated 05/08/25 @ 22:09 by MILTON Erickson) Pneumonia (Acute) Acute exacerbation of chronic obstructive pulmonary disease (COPD) (Acute) Acute exacerbation of chronic obstructive pulmonary disease (COPD) (Acute) Pulmonary nodules/lesions, multiple (Acute ~04/2025) Multifocal pneumonia (Acute) History of bladder cancer (Acute) Superficial Bladder CA, yearly cysto for surveillance. Dr. Wiggins Advanced care planning/counseling discussion (Acute) Palliative care encounter (Acute) Weight loss (Acute) PVD (peripheral vascular disease) (Chronic) Pain in both feet (Acute) Onychomycosis (Acute) High risk for fracture due to osteoporosis by DEXA scan (Acute ~03/2023) RX Fosamax Poor manual dexterity (Acute) Lung nodule seen on imaging study (Acute ~10/2022) Annual LDCT Impaired gait and mobility (Acute) Chronic pain (Chronic) Due to OA shoulders, knees, Spinal stenosis. 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/03/16 Cervical myelopathy (Chronic) Spinal stenosis, lumbar region without neurogenic claudication (Acute 12/14/11) Osteoarthritis of spine with radiculopathy, cervical region (Acute 09/05/11) Sacroiliac joint dysfunction of right side (Acute) Spinal stenosis of lumbar region with radiculopathy (Acute) 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 Dr Velazco, [facility] [place] [facility] Essential hypertension (Acute 02/26/13) [place] cardiac risk >20% in next 10 years (Chronic) 2020: 32% Magnesium-losing nephropathy (Chronic) very mild; tx spironolactone GERD (gastroesophageal reflux disease) (Chronic) Depression (Chronic 07/01/14) Medical marijuana use (Chronic) Arthritis of left glenohumeral joint (Chronic ~07/01/14) Medical History Abnormal weight loss Urothelial carcinoma of bladder (~2016) [facility] Urology CHF exacerbation Acute cystitis Pneumonia Acute UTI Weakness Acute UTI Anemia Smoker Unintentional weight loss Leg edema Delayed gastric emptying mild Hyperlipidemia Neuropathy Sessile colonic polyp (03/14/18) Osteopenia (12/14/11) Osteoporosis wrist, osteopenia hip, normal bone density of spine 2016 osteopenia 2011 Adhesive capsulitis of left shoulder Injected 12/11/2018 Spinal stenosis Hx of bacterial pneumonia Surgical History H/O laminectomy (~06/2021) APD-L3-L4 laminectomy, medial fa for decompression of stenosis, lateral disectomy [id number] Cervical spondylosis 11/03/20 C5-[address] Everett Cardoza 11/04/20 D/C'd home Status post shoulder hemiarthroplasty History of hemiarthroplasty of left shoulder 09/07/2015 H/O cystoscopy (09/06/18) w/transurethral resection of bladder tumors-Dr Wiggins Tenotomy and debridement tendon L shoulder (10/25/17) Rotator Cuff Repair Repair of umbilical hernia Hemiarthroplasty (09/07/15) L shoulder Dr Luz Colonoscopy - MAC (03/12/18) Colon,transverse,polyp,biopsy - fragment of sessile serrated adenoma. (Dr Neely) Breast, Lumpectomy Arthroplasty of knee Per patient she has not had a TOTAL KNEE Anterior Fusion Cervical Spine C3-C5 (07/31/16) Jul 2016, [facility] [place] Family History Father Essential hypertension Glaucoma Alzheimer's dementia Social History (Reviewed 08/27/24 @ 15:32 by RICK Mariscal Smoking/Tobacco Use Status: Former Tobacco Use Quit Date: 02/10/25 Smoking risk assessment performed?: Yes Alcohol Intake: former Drug use: Daily Substance use type: marijuana Details: marijuana: uses qd Last used Monday09/30/23 Household members: none Housing: house Number of Children: 0 Pets and animals: Yes Pets and animals: cat(s) and dog(s) Current gender identity: female What type of physical activity do you participate in: none and other Details: PT 2 xweek Frequency: 1-2 times per week Seatbelt use: always 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
--- NOTE | 2025-05-08 19:01 | HPE_ITS ---
Date of service: 05/08/25 Time of Service: 19:01 Assessment and Plan Assessment and plan (1) Acute exacerbation of chronic obstructive pulmonary disease (COPD): Status: Acute Assessment and plan: - History of COPD and recent exacerbation, though patient is not on inhaled corticosteroid - As needed albuterol and DuoNeb treatments - Status post IV methylprednisolone in the emergency department, continue 40 mg p.o. prednisone daily - Consider inpatient pulmonary consultation to assist with outpatient transition (2) Multifocal pneumonia: Status: Acute Assessment and plan: - Noted improvement in the left lower lobe infiltrate with persistence of right lower lobe as compared to previous hospitalization at the end of March - Patient without fever or white count at this time - Started on p.o. Levaquin in the emergency department, will continue (3) Chronic pain: Status: Chronic Assessment and plan: - Chronic shoulder pain and degenerative disc disease, continue home celecoxib (4) Essential hypertension: Status: Acute Assessment and plan: - Improved continue home amlodipine and spironolactone (5) GERD (gastroesophageal reflux disease): Status: Chronic Assessment and plan: - Use continue home PPI History of Present Illness History of Present Illness Chief Complaint: SOB, weakness Narrative: 75-year-old female with a past medical history of hypertension, COPD and recent hospitalization at [facility] from 04/14/2025 to 04/15/2025 for acute hypoxic respiratory failure secondary to multifocal pneumonia and COPD. At time of discharge from previous hospitalization patient was sent home with cefpodoxime and doxycycline for acute hypoxic for failure and her acute hypoxic respiratory failure had resolved. It was recommended she follow-up with her PCP after pulmonology consultation however, since that time patient states that she had only had minimal improvement and that over the last 2 days has become more short of breath and weak. She denies any headache, lightheadedness, dizziness, chest pain, nausea vomiting fevers or diarrhea. In the emergency department the patient was noted to have normal vital signs, normal CBC and CMP, but given recent pneumonia she did have chest CT that showed mild improvement of left lower lobe infiltrate with ongoing presence of right lower lobe infiltrate. Patient's lactic was negative, and while she did not require oxygen at rest, reportedly dropped down to 87% on room air while ambulating in the emergency department. She was given IV methylprednisolone and 2 nebulizer treatments as well as p.o. Levaquin. At which time emergency room provider paged hospitalist for admission for patient with acute exacerbation of COPD and persistent multifocal pneumonia. Review of Systems All systems reviewed & are unremarkable except as noted in HPI and below PFSH All Active Problems (Updated 05/08/25 @ 19:02 by Javier Louise MD) Acute exacerbation of chronic obstructive pulmonary disease (COPD) (Acute) Pulmonary nodules/lesions, multiple (Acute ~04/2025) Multifocal pneumonia (Acute) History of bladder cancer (Acute) Superficial Bladder CA, yearly cysto for surveillance. Dr. Wiggins Advanced care planning/counseling discussion (Acute) Palliative care encounter (Acute) Weight loss (Acute) PVD (peripheral vascular disease) (Chronic) Pain in both feet (Acute) Onychomycosis (Acute) High risk for fracture due to osteoporosis by DEXA scan (Acute ~03/2023) RX Fosamax Poor manual dexterity (Acute) Lung nodule seen on imaging study (Acute ~10/2022) Annual LDCT Impaired gait and mobility (Acute) Chronic pain (Chronic) Due to OA shoulders, knees, Spinal stenosis. 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/03/16 Cervical myelopathy (Chronic) Spinal stenosis, lumbar region without neurogenic claudication (Acute 12/14/11) Osteoarthritis of spine with radiculopathy, cervical region (Acute 09/05/11) Sacroiliac joint dysfunction of right side (Acute) Spinal stenosis of lumbar region with radiculopathy (Acute) 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 Dr Velazco, [facility] [place] Neurology Essential hypertension (Acute 02/26/13) [place] cardiac risk >20% in next 10 years (Chronic) 2020: 32% Magnesium-losing nephropathy (Chronic) very mild; tx spironolactone GERD (gastroesophageal reflux disease) (Chronic) Depression (Chronic 07/01/14) Medical marijuana use (Chronic) Arthritis of left glenohumeral joint (Chronic ~07/01/14) Medical History Abnormal weight loss Urothelial carcinoma of bladder (~2016) [facility] Urology CHF exacerbation Acute cystitis Pneumonia Acute UTI Weakness Acute UTI Anemia Smoker Unintentional weight loss Leg edema Delayed gastric emptying mild Hyperlipidemia Neuropathy Sessile colonic polyp (03/14/18) Osteopenia (12/14/11) Osteoporosis wrist, osteopenia hip, normal bone density of spine 2016 osteopenia 2011 Adhesive capsulitis of left shoulder Injected 12/11/2018 Spinal stenosis Hx of bacterial pneumonia Surgical History H/O laminectomy (~06/2021) APD-L3-L4 laminectomy, medial fa for decompression of stenosis, lateral disectomy [id number] Cervical spondylosis 11/03/20 C5-[address] Everett Cardoza 11/04/20 D/C'd home Status post shoulder hemiarthroplasty History of hemiarthroplasty of left shoulder 09/07/2015 H/O cystoscopy (09/06/18) w/transurethral resection of bladder tumors-Dr Wiggins Tenotomy and debridement tendon L shoulder (10/25/17) Rotator Cuff Repair Repair of umbilical hernia Hemiarthroplasty (09/07/15) L shoulder Dr Luz Colonoscopy - MAC (03/12/18) Colon,transverse,polyp,biopsy - fragment of sessile serrated adenoma. (Dr Neely) Breast, Lumpectomy Arthroplasty of knee Per patient she has not had a TOTAL KNEE Anterior Fusion Cervical Spine C3-C5 (07/31/16) Jul 2016, [facility] [place] Dr. Martinez Family History Father Essential hypertension Glaucoma Alzheimer's dementia Social History Smoking/Tobacco Use Status: Former Tobacco Use Quit Date: 02/10/25 Smoking risk assessment performed?: Yes Alcohol Intake: former Drug use: Daily Substance use type: marijuana Details: marijuana: uses qd Last used Monday09/30/23 Household members: none Housing: house Number of Children: 0 Pets and animals: Yes Pets and animals: cat(s) and dog(s) Current gender identity: female What type of physical activity do you participate in: none and other Details: PT 2 xweek Frequency: 1-2 times per week Seatbelt use: always Drive intox or ride w/intox emergency medical technician/driver: No Working smoke detector in home: Yes Fire extinguisher in home: Yes Carbon monox detector in home: Yes Do you feel safe at home: Yes Do you feel safe in your relationship?: Yes Meds Allergies and Home Medications Allergies Allergy/AdvReac Type Severity Reaction Status Date / Time ciprofloxacin Allergy Other (See Verified 05/08/25 15:24 Comment) codeine AdvReac Intermediate Nausea Verified 05/08/25 15:24 nitrofurantoin AdvReac Intermediate bloating, Verified 05/08/25 15:24 weakness oxycodone AdvReac Intermediate GI issues Verified 05/08/25 15:24 hydrochlorothiazide AdvReac Mild hypomagnese Verified 05/08/25 15:24 pop narcotics AdvReac Intermediate Nausea, Uncoded 05/08/25 15:24 vomiting Home Medications ?Medication ?Instructions ?Recorded ?Confirmed ?Type ketoconazole 2 % topical cream 1 applic topical DAILY #120 grams 11/14/23 05/08/25 Rx simethicone 80 mg chewable tablet 80 mg PO TID-QID PRN abdominal 07/03/24 05/08/25 Rx (Gas Relief (simethicone)) distention #40 tabs ondansetron 4 mg disintegrating 4 mg PO DAILY PRN naus ea and 07/29/24 05/08/25 Rx tablet vomiting #40 tabs pantoprazole 20 mg tablet,delayed See Rx Instructions .Route 11/06/24 05/08/25 Rx release .COMPLEX #180 tabs duloxetine 60 mg capsule,delayed 60 mg PO DAILY #90 ca ps 12/12/24 05/08/25 Rx release pravastatin 40 mg tablet See Rx Instructions .Route 0 01/20/25 05/08/25 Rx .COMPLEX #90 tabs pregabalin 225 mg capsule 225 mg PO BID #60 caps 02/0405/08/25 Rx mirtazapine 30 mg tablet 30 mg PO QHS #90 tabs 05/08/25 Rx acetaminophen 650 mg 650 mg PO BID PRN 05/27/25 0 05/08/25 History tablet,extended release (Tylenol Arthritis Pain) ibuprofen 200 mg capsule 200 mg PO BID PRN 02/18/25 0 05/08/25 History celecoxib 200 mg capsule See Rx Instructions .Route 0 02/24/25 05/08/25 Rx .COMPLEX #90 caps potassium chloride 10 mEq See Rx Instructions .Route 0 02/24/25 05/08/25 Rx capsule,extended release .COMPLEX #90 caps cetirizine 10 mg tablet See Rx Instructions .Route 0 03/24/25 05/08/25 Rx .COMPLEX #90 tabs spironolactone 25 mg tablet See Rx Instructions .Route 03/24/25 05/08/25 Rx .COMPLEX #90 tabs magnesium oxide 400 mg (241.3 mg See Rx Instructions . Route 03/31/25 05/08/25 Rx magnesium) tablet .COMPLEX #90 tabs amlodipine 2.5 mg tablet See Rx Instructions .Route 0 04/03/25 05/08/25 Rx .COMPLEX #90 tabs doxycycline hyclate 100 mg capsule 100 mg PO BID #8 ca ps 04/15/25 05/08/25 Rx guaifenesin 600 mg tablet, 600 mg PO BID #10 tabs 03/2605/08/25 Rx extended release 12 hr (Mucus Relief ER) prednisone 20 mg tablet 40 mg (2 x 20 mg) PO .daily in AM 05/08/25 05/08/25 Rx #10 tabs Exam Narrative Exam Narrative: Fatigued but otherwise well-appearing older female laying in bed in no acute distress, ANO x 4, heart regular rhythm, most auscultation bilaterally, abdomen soft, nontender, nondistended Results Labs 05/08/25 15:55 05/08/25 15:55 Labs: Laboratory Results - last 24 hr 05/08/25 05/08/25 15:55 16:57 WBC 5.42 RBC 3.84 L Hgb 10.9 L Hct 33.2 L MCV 87 MCH 28.4 MCHC 32.8 RDW 14.4 Plt Count 241 MPV 9.9 Immature Gran % 0.4 Neutrophils % 66.5 Lymphocytes % 20.5 Monocytes % 9.6 Eosinophils % 2.6 Basophils % 0.4 Nucleated RBC % 0.0 Absolute Neutrophils 3.61 Absolute Lymphocytes 1.11 L Absolute Monocytes 0.52 Absolute Eosinophils 0.14 Absolute Basophils 0.02 VBG Lactate 1.0 Sodium 134 L Potassium 4.0 Chloride 98 Carbon Dioxide 27.4 Anion Gap 8.6 BUN 18 Creatinine 0.7 Est GFR (CKD-EPI 2020) 90.14 Glucose 110 H Calcium 9.1 Total Bilirubin 0.5 AST 17 ALT 15 Alkaline Phosphatase 111 Troponin I 6 5 NT-Pro-B Natriuret Pep 757 H Total Protein 7.4 Albumin 3.4 Last Vital Signs Temp 97.9 F 05/08/25 15:59 Pulse 73 05/08/25 16:20 Resp 21 05/08/25 16:20 BP 157/77 H 05/08/25 16:16 Pulse Ox 99 05/08/25 16:20 Time Spent Time spent with Patient: >75 minutes Time was spent: preparing to see the patient(eg.review tests), obtaining and/or reviewing separately otained hiistory, ordering medications,tests, procedures, referring, communicating with other health intensive care ambulance paramedic, indepentently interpreting results, counseling the patient and care coordination
[2025-05-08 19:30] LABS: COVID-19 PCR Negative (Negative); RSV PCR Negative (Negative)
--- NOTE | 2025-05-08 21:42 | W.PC.ACHO ---
Registration Status: ADM KWESI Primary Language: Preferred Language: Armenian ED Information & Data Chief Complaint SOB 05/08/25 18:53 Triage Note SOB fatigued increased the 05/08/25 15:20 past few days recent dx of PNA Medical / Surgical History (Last Reviewed 08/27/24 @ 15:32 by Kamla Crespo DPM) Abnormal weight loss Urothelial carcinoma of bladder (~2016) Leg edema Osteopenia (12/14/11) CHF exacerbation Acute cystitis Pneumonia Acute UTI Weakness Acute UTI Anemia Smoker Unintentional weight loss Delayed gastric emptying Hyperlipidemia Neuropathy Sessile colonic polyp (03/14/18) Adhesive capsulitis of left shoulder Spinal stenosis Hx of bacterial pneumonia (Last Reviewed 08/27/24 @ 15:32 by Kamla Crespo DPM) H/O laminectomy (~06/2021) Cervical spondylosis Status post shoulder hemiarthroplasty History of hemiarthroplasty of left shoulder H/O cystoscopy (09/06/18) Tenotomy and debridement tendon L shoulder (10/25/17) Rotator Cuff Repair Repair of umbilical hernia Hemiarthroplasty (09/07/15) Colonoscopy - MAC (03/12/18) Breast, Lumpectomy Arthroplasty of knee Anterior Fusion Cervical Spine C3-C5 (07/31/16) Most Recent Vital Signs Temperature 36.1 C L 05/08/25 21:07 Temperature Source Tympanic 05/08/25 15:59 Pulse 83 05/08/25 21:07 Pulse Rhythm Regular 05/08/25 21:07 Pulse 115 H 05/08/25 20:50 Respiratory Rate 18 05/08/25 21:07 Respiratory Effort Normal 05/08/25 21:07 Respiratory Depth Normal 05/08/25 21:07 Respiratory Pattern Normal 05/08/25 21:07 Blood Pressure 116/75 05/08/25 21:07 Blood Pressure Mean 72 05/08/25 20:45 Pulse Oximetry 95 05/08/25 21:07 Oxygen Delivery Method Room Air 05/08/25 21:07 Oxygen Flow Rate 0 05/08/25 21:07 Pain Level 0 05/08/25 21:07 Allergies ciprofloxacin Allergy (Verified 05/08/25 15:24) Other (See Comment) doesn't know codeine Adverse Reaction (Intermediate, Verified 05/08/25 15:24) Nausea nitrofurantoin Adverse Reaction (Intermediate, Verified 05/08/25 15:24) bloating, weakness oxycodone Adverse Reaction (Intermediate, Verified 05/08/25 15:24) GI issues hydrochlorothiazide Adverse Reaction (Mild, Verified 05/08/25 15:24) hypomagnesemia narcotics Adverse Reaction (Intermediate, Uncoded 05/08/25 15:24) Nausea, vomiting pt stated this is not true, some don't bother. Active Medications Generic Name Dose Route Start Last Admin Trade Name Freq PRN Reason Stop Dose Admin Iohexol 60 ml 05/08/25 17:00 05/08/25 16:48 Omnipaque 350 Mg/Ml 100 Ml Btl IJ 06/07/25 23:59 60 ml DIRECTED FARZANA Administration Sodium Chloride 50 ml 05/08/25 17:00 05/08/25 16:47 Normal Saline - Diluent 50 Ml Vial IJ 50 ml .FOR DI USE FARZANA Administration Sodium Chloride 0 ml 05/08/25 16:49 05/08/25 16:50 Normal Saline Flush 10 Ml Syr IVP 10 ml PRN PRN Administration Diet Orders Category Date Time Status Regular/Normal [DIET] Nutrition 05/09/25 Breakfast Ordered Diagnostics 05/08/25 05/08/25 05/08/25 Range/Units 18:49 18:47 16:57 WBC (4.4-10.8) 10^3/uL RBC (3.93-5.22) 10^6/uL Hgb (11.2-15.7) g/dL Hct (36.0-46.0) % MCV (80-95) fL MCH (27.0-33.0) pg MCHC (32.0-36.0) % RDW (11.7-14.6) % Plt Count (130-400) 10^3/uL MPV (8.0-11.0) fL Immature Gran % % Neutrophils % % Lymphocytes % % Monocytes % % Eosinophils % % Basophils % % Nucleated RBC % (0.0-0.3) % Absolute Neutrophils (1.2-6.7) 10^3/uL Absolute Lymphocytes (1.2-3.4) 10^3/uL Absolute Monocytes (0.1-0.8) 10^3/uL Absolute Eosinophils (0.0-0.7) 10^3/uL Absolute Basophils (0.0-0.2) 10^3/uL VBG Lactate (<or=2.0) mmol/L Sodium (136-145) mmol/L Potassium (3.5-5.1) mmol/L Chloride (98-107) mmol/L Carbon Dioxide (21.0-32.0) mmol/L Anion Gap (3-11) mmol/L BUN (7-18) mg/dL Creatinine (0.55-1.02) mg/dL Est GFR (CKD-EPI 2020) (mL/min/1.73m2) Glucose (74-106) mg/dL Calcium (8.5-10.1) mg/dL Total Bilirubin (0.2-1.0) mg/dL AST (15-37) U/L ALT (14-59) U/L Alkaline Phosphatase (46-116) U/L Troponin I Cancelled 5 (<or=51) ng/L NT-Pro-B Natriuret Pep (<300) pg/mL Total Protein (6.4-8.2) g/dL Albumin (3.4-5.0) g/dL COVID-19 Source Nasopharynx SARS-CoV-2 (PCR) Negative (Negative) Influenza Type A (PCR) Negative (Negative) Influenza Type B (PCR) Negative (Negative) RSV (PCR) Negative (Negative) 05/08/25 Range/Units 15:55 WBC 5.42 (4.4-10.8) 10^3/uL RBC 3.84 L (3.93-5.22) 10^6/uL Hgb 10.9 L (11.2-15.7) g/dL Hct 33.2 L (36.0-46.0) % MCV 87 (80-95) fL MCH 28.4 (27.0-33.0) pg MCHC 32.8 (32.0-36.0) % RDW 14.4 (11.7-14.6) % Plt Count 241 (130-400) 10^3/uL MPV 9.9 (8.0-11.0) fL Immature Gran % 0.4 % Neutrophils % 66.5 % Lymphocytes % 20.5 % Monocytes % 9.6 % Eosinophils % 2.6 % Basophils % 0.4 % Nucleated RBC % 0.0 (0.0-0.3) % Absolute Neutrophils 3.61 (1.2-6.7) 10^3/uL Absolute Lymphocytes 1.11 L (1.2-3.4) 10^3/uL Absolute Monocytes 0.52 (0.1-0.8) 10^3/uL Absolute Eosinophils 0.14 (0.0-0.7) 10^3/uL Absolute Basophils 0.02 (0.0-0.2) 10^3/uL VBG Lactate 1.0 (<or=2.0) mmol/L Sodium 134 L (136-145) mmol/L Potassium 4.0 (3.5-5.1) mmol/L Chloride 98 (98-107) mmol/L Carbon Dioxide 27.4 (21.0-32.0) mmol/L Anion Gap 8.6 (3-11) mmol/L BUN 18 (7-18) mg/dL Creatinine 0.7 (0.55-1.02) mg/dL Est GFR (CKD-EPI 2020) 90.14 (mL/min/1.73m2) Glucose 110 H (74-106) mg/dL Calcium 9.1 (8.5-10.1) mg/dL Total Bilirubin 0.5 (0.2-1.0) mg/dL AST 17 (15-37) U/L ALT 15 (14-59) U/L Alkaline Phosphatase 111 (46-116) U/L Troponin I 6 (<or=51) ng/L NT-Pro-B Natriuret Pep 757 H (<300) pg/mL Total Protein 7.4 (6.4-8.2) g/dL Albumin 3.4 (3.4-5.0) g/dL COVID-19 Source SARS-CoV-2 (PCR) (Negative) Influenza Type A (PCR) (Negative) Influenza Type B (PCR) (Negative) RSV (PCR) (Negative) 05/08/25 17:30 Blood Culture - Pending Blood 05/08/25 15:55 Blood Culture - Pending Blood Intake and Output - 24 Hour Total 05/08/25 15:16 thru 05/08/25 21:07 Weight 39.8 kg Falls Risk Assessment History of Falls Previous History 05/08/25 21:07 Contributing Factors Impairments 05/08/25 21:07 Ambulatory Aids Uses ambulatory device 05/08/25 21:07 Tubes/Lines None 05/08/25 21:07 Gait Evaluation W/no contributing factors 05/08/25 21:07 Cognition No cognitive impairment 05/08/25 21:07 Fall Total Score 43 05/08/25 21:07 Level of Risk Moderate Risk 05/08/25 21:07 Problems (Last Reviewed 08/27/24 @ 15:32 by Kamla Crespo DPM) Acute exacerbation of chronic obstructive pulmonary disease (COPD) (Acute) Multifocal pneumonia (Acute) v v v v v v v v v Sending and/or Receiving Nurses: Please use comment section below to note any information pertinent to the patient hand-off not included above. Information / Comments: Report received all questions answered. Report received from: Rd Lua
[2025-05-08] MEDS: Pregabalin 100 MG CAP 200 MG PO (21:56)
[2025-05-08] MEDS: Pantoprazole 20 MG TABCR PO (21:56)
[2025-05-08] MEDS: Pregabalin 25 MG CAP PO (21:57)
[2025-05-08] MEDS: Mirtazapine 15 MG TAB 30 MG PO (22:01)
[2025-05-08] MEDS: Pravastatin 40 MG TAB PO (22:04)
[2025-05-09 03:20] VITALS: BP 110/67; PULSE 79; RESP 18; TEMP 36.7; O2SAT 94
[2025-05-09 06:42] LABS: HCT 32.0 % (36.0-46.0); HGB 10.5 g/dL (11.2-15.7); MCH 28.5 pg (27.0-33.0); MCHC 32.8 % (32.0-36.0); MCV 87 fL (80-95); MPV 10.1 fL (8.0-11.0); Platelet Count 240 10^3/uL (130-400); RBC 3.69 10^6/uL (3.93-5.22); RDW 14.3 % (11.7-14.6); RDW-SD 45.9 fL; WBC 3.62 10^3/uL (4.4-10.8)
[2025-05-09 06:58] LABS: Anion Gap 10.6 mmol/L (3-11); BUN 22 mg/dL (7-18); CO2 26.4 mmol/L (21.0-32.0); Calcium 8.9 mg/dL (8.5-10.1); Chloride 99 mmol/L (98-107); Estimated GFR 58.75 (mL/min/1.73m2); Glucose 128 mg/dL (74-106); Magnesium 1.8 mg/dL (1.8-2.4); Potassium 4.2 mmol/L (3.5-5.1); Sodium 136 mmol/L (136-145)
[2025-05-09 07:31] VITALS: BP 122/74; PULSE 77; RESP 16; TEMP 37.1; O2SAT 99
[2025-05-09] MEDS: Celecoxib 200 MG CAP PO (09:23)
[2025-05-09] MEDS: DULoxetine 30 MG CAP 60 MG PO (09:23)
[2025-05-09] MEDS: predniSONE 20 MG TAB 40 MG PO (09:24)
[2025-05-09] MEDS: Spironolactone 25 MG TAB PO (09:24)
[2025-05-09] MEDS: amLODIPine 2.5 MG TAB PO (09:25)
[2025-05-09] MEDS: Pantoprazole 20 MG TABCR PO ×2 (09:26→19:30)
[2025-05-09] MEDS: Cetirizine 10 MG TAB PO (09:26)
[2025-05-09] MEDS: Pregabalin 100 MG CAP 200 MG PO ×2 (09:36→19:31)
[2025-05-09] MEDS: Pregabalin 25 MG CAP PO ×2 (09:37→19:31)
[2025-05-09] MEDS: Enoxaparin 30 MG/0.3 ML SYR SC (09:46)
[2025-05-09 11:18] VITALS: BP 109/86; PULSE 72; RESP 16; TEMP 37.2; O2SAT 99
--- NOTE | 2025-05-09 11:22 | CHAPLAIN ---
Belén was resting in bed when I visited. She was here in March, also with pneumonia and said this time she listened to friends when they suggested she come into the ED. Belén lives alone with her pets and said she has good neighbors and friends and someone paid through [employer] to do housekeeping and yard work. She is very independent and she said it is difficult for her to ask for help, but she has learned to, and has also used the services in the community that are available to her.
--- NOTE | 2025-05-09 13:13 | W.PM.PROGNOT ---
Objective Last Vital Signs Temp 37.2 C 05/09/25 11:18 Pulse 72 05/09/25 11:18 Resp 16 05/09/25 11:18 BP 109/86 05/09/25 11:18 Pulse Ox 99 05/09/25 11:18 Laboratory Results - last 24 hr 05/08/25 05/08/25 05/08/25 15:55 16:57 18:47 WBC 5.42 RBC 3.84 L Hgb 10.9 L Hct 33.2 L MCV 87 MCH 28.4 MCHC 32.8 RDW 14.4 Plt Count 241 MPV 9.9 Immature Gran % 0.4 Neutrophils % 66.5 Lymphocytes % 20.5 Monocytes % 9.6 Eosinophils % 2.6 Basophils % 0.4 Nucleated RBC % 0.0 Absolute Neutrophils 3.61 Absolute Lymphocytes 1.11 L Absolute Monocytes 0.52 Absolute Eosinophils 0.14 Absolute Basophils 0.02 VBG Lactate 1.0 Sodium 134 L Potassium 4.0 Chloride 98 Carbon Dioxide 27.4 Anion Gap 8.6 BUN 18 Creatinine 0.7 Est GFR (CKD-EPI 2020) 90.14 Glucose 110 H Calcium 9.1 Magnesium Total Bilirubin 0.5 AST 17 ALT 15 Alkaline Phosphatase 111 Troponin I 6 5 Cancelled NT-Pro-B Natriuret Pep 757 H Total Protein 7.4 Albumin 3.4 COVID-19 Source SARS-CoV-2 (PCR) Influenza Type A (PCR) Influenza Type B (PCR) RSV (PCR) 05/08/25 05/09/25 18:49 06:05 WBC 3.62 L RBC 3.69 L Hgb 10.5 L Hct 32.0 L MCV 87 MCH 28.5 MCHC 32.8 RDW 14.3 Plt Count 240 MPV 10.1 Immature Gran % Neutrophils % Lymphocytes % Monocytes % Eosinophils % Basophils % Nucleated RBC % Absolute Neutrophils Absolute Lymphocytes Absolute Monocytes Absolute Eosinophils Absolute Basophils VBG Lactate Sodium 136 Potassium 4.2 Chloride 99 Carbon Dioxide 26.4 Anion Gap 10.6 BUN 22 H Creatinine 1.0 Est GFR (CKD-EPI 2020) 58.75 Glucose 128 H Calcium 8.9 Magnesium 1.8 Total Bilirubin AST ALT Alkaline Phosphatase Troponin I NT-Pro-B Natriuret Pep Total Protein Albumin COVID-19 Source Nasopharynx SARS-CoV-2 (PCR) Negative Influenza Type A (PCR) Negative Influenza Type B (PCR) Negative RSV (PCR) Negative
--- NOTE | 2025-05-09 15:07 | INITIAL_ITS ---
Date of service: 05/09/25 Time of Service: 15:07 Care Management Initial Assmt Initial Assessment Reason for Hospitalization: COPD Functional Status/Living Situation Patient Presentation: Belén lives alone in a single family home in [facility] with her dog and 2 cats. She has no children however shared that she has many good, close friends and neighbors locally. Belén uses a walker for ambulation and receives Meals on Wheels. She also has a solution strategist/caregiver once a week through [employer]. He is a young man named Juan and Belén reported that he has helped her with many things and has been a huge support. She is independent with ADLs and continues to drive. Belén was admitted with COPD. She was recently hospitalized with pneumonia, which is showing some improvement on imaging. She is afebrile and her oxygen saturation is at 99% on room air. She is being treated with steroids and antibiotics and stated that she is feeling much better today. Town of Residence: [facility] Natural Supports: friends and neighbors Employment Status: Retired Instrumental Activities of Daily Living (ADLs): Independent Medications Medication Management: No Issues/Barriers identified Physical Functioning/Mobility Assistive Device: walker Advance Directives Advance Directives: Do you have an Advance Directive: N , 09:01 AD On File at [facility]: N 06/14/22, 09:01 Date Asked 05/08/25 05/08/25, 15:18 AD Date Reviewed COLST On File at [facility] COLST Date Scanned Code Status Resuscitation Status Full Code Insurance Coverage/Financial Issues Insurance: Medicare A&B Care Team Visit Care Team Role Provider Type Elmer Rodriguez MD MD [facility] STAFF PHYSICIAN Chanel Nelson NP Primary Care Provider NURSE PRACTITIONER MILTON Erickson Emergency Provider PHYSICIANS NON LICENSED OPERATOR Javier Louise MD Admit Provider [facility] STAFF PHYSICIAN Attending Provider Discharge Potential Discharge Needs: PCP F/U Appt Anticipated Barriers to Discharge: None Identified Patient/Family Education Needs: Review discharge instructions, discuss Ask Me Three Transportation: Private vehicle Plan: Belén will be discharged home, with no new services, when medically cleared. She will follow up with her community providers and plan of care and transport with family. CM will follow. Social Determinants of Health Screening Will the Patient Participate in the Screening?: Declined to provide Problems where you live: no known problems In the past 12 months, have you had to go without electric, gas, oil or water in your home?: no How often do you feel lonely or isolated from those around you?: Never Do you speak a language other than [place] at home?: No Does the patient want assistance with any of the above?: No PFSH All Active Problems (Updated 05/08/25 @ 22:09 by MILTON Erickson) Pneumonia (Acute) Acute exacerbation of chronic obstructive pulmonary disease (COPD) (Acute) Acute exacerbation of chronic obstructive pulmonary disease (COPD) (Acute) Pulmonary nodules/lesions, multiple (Acute ~04/2025) Multifocal pneumonia (Acute) History of bladder cancer (Acute) Superficial Bladder CA, yearly cysto for surveillance. Dr. Wiggins Advanced care planning/counseling discussion (Acute) Palliative care encounter (Acute) Weight loss (Acute) PVD (peripheral vascular disease) (Chronic) Pain in both feet (Acute) Onychomycosis (Acute) High risk for fracture due to osteoporosis by DEXA scan (Acute ~03/2023) RX Fosamax Poor manual dexterity (Acute) Lung nodule seen on imaging study (Acute ~10/2022) Annual LDCT Impaired gait and mobility (Acute) Chronic pain (Chronic) Due to OA shoulders, knees, Spinal stenosis. 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/03/16 Cervical myelopathy (Chronic) Spinal stenosis, lumbar region without neurogenic claudication (Acute 12/14/11) Osteoarthritis of spine with radiculopathy, cervical region (Acute 09/05/11) Sacroiliac joint dysfunction of right side (Acute) Spinal stenosis of lumbar region with radiculopathy (Acute) 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 Dr Velazco, [facility] Neurology Essential hypertension (Acute 02/26/13) [place] cardiac risk >20% in next 10 years (Chronic) 2020: 32% Magnesium-losing nephropathy (Chronic) very mild; tx spironolactone GERD (gastroesophageal reflux disease) (Chronic) Depression (Chronic 07/01/14) Medical marijuana use (Chronic) Arthritis of left glenohumeral joint (Chronic ~07/01/14) Medical History Abnormal weight loss Urothelial carcinoma of bladder (~2016) [facility] CHF exacerbation Acute cystitis Pneumonia Acute UTI Weakness Acute UTI Anemia Smoker Unintentional weight loss Leg edema Delayed gastric emptying mild Hyperlipidemia Neuropathy Sessile colonic polyp (03/14/18) Osteopenia (12/14/11) Osteoporosis wrist, osteopenia hip, normal bone density of spine 2016 osteopenia 2011 Adhesive capsulitis of left shoulder Injected 12/11/2018 Spinal stenosis Hx of bacterial pneumonia Surgical History H/O laminectomy (~06/2021) APD-L3-L4 laminectomy, medial fa for decompression of stenosis, lateral disectomy [id number] Cervical spondylosis 11/03/20 C5-[address] Everett Cardoza Day 11/04/20 D/C'd home Status post shoulder hemiarthroplasty History of hemiarthroplasty of left shoulder 09/07/2015 H/O cystoscopy (09/06/18) w/transurethral resection of bladder tumors-Dr Wiggins Tenotomy and debridement tendon L shoulder (10/25/17) Rotator Cuff Repair Repair of umbilical hernia Hemiarthroplasty (09/07/15) L shoulder Dr Luz Colonoscopy - MAC (03/12/18) Colon,transverse,polyp,biopsy - fragment of sessile serrated adenoma. (Dr Neely) Breast, Lumpectomy Arthroplasty of knee Per patient she has not had a TOTAL KNEE Anterior Fusion Cervical Spine C3-C5 (07/31/16) Jul 2016, [facility] Dr. Martinez Family History Father Essential hypertension Glaucoma Alzheimer's dementia Social History Smoking/Tobacco Use Status: Former Tobacco Use Quit Date: 02/10/25 Smoking risk assessment performed?: Yes Alcohol Intake: former Drug use: Daily Substance use type: marijuana Details: marijuana: uses qd Last used Monday09/30/23 Household members: none Housing: house Number of Children: 0 Pets and animals: Yes Pets and animals: cat(s) and dog(s) Current gender identity: female What type of physical activity do you participate in: none and other Details: PT 2 xweek Frequency: 1-2 times per week Seatbelt use: always Drive intox or ride w/intox pedicab driver: No Working smoke detector in home: Yes Fire extinguisher in home: Yes Carbon monox detector in home: Yes Do you feel safe at home: Yes Do you feel safe in your relationship?: Yes Readmission Within the Past 30 Days Yes or No: Yes Date of First Admission Date of 1st Admission: 04/14/25 Date of this Admission Date of Admission: 05/08/25 This admission was: Through ED Office Visit Since 1st Admission Have you seen your PCP in the office since discharge?: No Had an appointment Been Scheduled?: Yes Date of Scheduled Appointment: 05/17/25 I. Interview patient and/or Family Difficulty reaching your doctor or getting an office appt?: No Have you had trouble purchasing/ or taking medication?: No Have you had trouble with getting meals at home?: No Did you feel ready for discharge when you left the last time: Yes Were services received that you thought were set up on disch: Yes Did you call your physician beore you came to the ED?: No Assessment for Readmission Summary of readmission circumstances, based upon interviews: Belén was admitted in March with pneumonia. She was hospitalized for 3 days, did well, and was discharged home. She shared that her recovery was slow but that by last week he was beginning to feel better and more back to her baseline. She felt well for a few days then began having trouble breathing again and returned to the hospital,
--- NOTE | 2025-05-09 19:12 | W.PM.DS.N ---
Date of service: 05/09/25 Time of Service: 18:30 DS: Diagnosis Discharge Diagnosis (1) Acute exacerbation of chronic obstructive pulmonary disease (COPD): Status: Acute Asessment and Plan: - History of COPD and recent exacerbation, though patient is not on inhaled corticosteroid - As needed albuterol and DuoNeb treatments - Status post IV methylprednisolone in the emergency department, continue 40 mg p.o. prednisone daily - Advised pulmonology evaluation through PCP (2) Multifocal pneumonia: Status: Acute Asessment and Plan: - Noted improvement in the left lower lobe infiltrate with persistence of right lower lobe as compared to previous hospitalization at the end of March - Patient without fever or white count at this time - Started on p.o. Levaquin in the emergency department, will continue - Renal dosing q48h (3) Chronic pain: Status: Chronic Asessment and Plan: - Chronic shoulder pain and degenerative disc disease, continue home celecoxib (4) Essential hypertension: Status: Chronic Asessment and Plan: - Improved continue home amlodipine and spironolactone (5) GERD (gastroesophageal reflux disease): Status: Chronic Asessment and Plan: - Continue home PPI Discharge Plan Disposition Patient Disposition: Home Condition: Improving Discharge Details Reason For Visit: COPD exacerbation Admit Date/Time: 05/08/25 18:58 Admit Provider: Javier Louise Attending Provider: Javier Louise Primary Care Provider: Chanel Nelson Hospital Course Hospital Course: Belén Velasquez is a 75 year old woman presenting May 08 with shortness of breath. She had pneumonia in March. On arrival she required oxygen supplementation and was started on steroids and antibiotics. By the afternoon of May 09 she was feeling much better and was comfortable on room air. She has safe discharge capability and has a ride. Home Meds and New Rx's Prescriptions: New prednisone 20 mg Tablet 40 mg PO DAILY Qty: 8 0RF levofloxacin 750 mg Tablet 750 mg PO Q48H Qty: 6 0RF Rx Instructions: to start MondayMay 11. Course initiated in the hospital on May 19. Continued acetaminophen [Tylenol Arthritis Pain] 650 mg tablet extended release 650 mg PO BID PRN ketoconazole 2 % cream 1 applic topical DAILY Qty: 120 6RF Rx Instructions: Apply to toenails once daily simethicone [Gas Relief (simethicone)] 80 mg tablet,chewable 80 mg PO TID-QID PRN (Reason: abdominal distention) Qty: 40 0RF Rx Instructions: Bloating, bubbling/gas in abdomen ondansetron 4 mg tablet,disintegrating 4 mg PO DAILY PRN (Reason: nausea and vomiting) Qty: 40 12RF ibuprofen 200 mg capsule 200 mg PO BID PRN pantoprazole 20 mg tablet,delayed release (DR/EC) See Rx Instructions .ROUTE .COMPLEX Qty: 180 3RF Dose Instruction: TAKE 1 TABLET TWICE DAILY FOR REFLUX Rx Instructions: TAKE 1 TABLET TWICE DAILY FOR REFLUX duloxetine 60 mg capsule,delayed release(DR/EC) 60 mg PO DAILY Qty: 90 3RF pravastatin 40 mg tablet See Rx Instructions .ROUTE .COMPLEX Qty: 90 3RF Dose Instruction: TAKE 1 TABLET EVERY DAY Rx Instructions: TAKE 1 TABLET EVERY DAY pregabalin 225 mg capsule 225 mg PO BID Qty: 60 0RF Rx Instructions: Dose increase back to baseline Neuro dosing 10/10/2024 mirtazapine 30 mg tablet 30 mg PO QHS Qty: 90 3RF celecoxib 200 mg capsule See Rx Instructions .ROUTE .COMPLEX Qty: 90 3RF Dose Instruction: TAKE 1 CAPSULE EVERY DAY IN THE MORNING WITH FOOD FOR CHRONIC SPINE PAIN (CERVICAL AND LUMBAR) Rx Instructions: TAKE 1 CAPSULE EVERY DAY IN THE MORNING WITH FOOD FOR CHRONIC SPINE PAIN (CERVICAL AND LUMBAR) potassium chloride 10 mEq capsule, extended release See Rx Instructions .ROUTE .COMPLEX Qty: 90 3RF Dose Instruction: TAKE 1 CAPSULE EVERY DAY Rx Instructions: TAKE 1 CAPSULE EVERY DAY spironolactone 25 mg tablet See Rx Instructions .ROUTE .COMPLEX Qty: 90 3RF Dose Instruction: TAKE 1 TABLET EVERY DAY FOR MAGNESIUM WASTING Rx Instructions: TAKE 1 TABLET EVERY DAY FOR MAGNESIUM WASTING cetirizine 10 mg tablet See Rx Instructions .ROUTE .COMPLEX Qty: 90 0RF Dose Instruction: TAKE 1 TABLET ONE TO TWO TIMES PER DAY. TAKE LOWEST EFFECTIVE DOSE Rx Instructions: TAKE 1 TABLET ONE TO TWO TIMES PER DAY. TAKE LOWEST EFFECTIVE DOSE magnesium oxide 400 mg (241.3 mg magnesium) tablet See Rx Instructions .ROUTE .COMPLEX Qty: 90 3RF Dose Instruction: TAKE 1 TABLET EVERY DAY Rx Instructions: TAKE 1 TABLET EVERY DAY amlodipine 2.5 mg tablet See Rx Instructions .ROUTE .COMPLEX Qty: 90 3RF Dose Instruction: TAKE 1 TABLET EVERY DAY Rx Instructions: TAKE 1 TABLET EVERY DAY Discontinued prednisone 20 mg tablet 40 mg PO .daily in AM Qty: 10 0RF Rx Instructions: post-pneumonia shortness of breath doxycycline hyclate 100 mg Capsule 100 mg PO BID Qty: 8 0RF No Action guaifenesin [Mucus Relief ER] 600 mg Tablet Extended Release 12hr 600 mg PO BID Qty: 10 0RF Discharge Instructions Instructions: Exacerbation of COPD Stand Alone Forms: Nursing Discharge Form Referrals: Chanel Nelson GROCERY CLERK SELLING [Primary Care Provider, Medicine] Referral Note: PCP office will give you a call to set up a follow up appointment. Activity:: Activity as Tolerated Equipment/Supplies:: No Equipment Needed Diet:: Normal Diet Discharge Orders Discharge Orders: Discharge Order (Routine); Ordered 05/09/25 Ordered By: Elmer Rodriguez Discharge Data Discharge Date/Time-TO BE ENTERED AT DEPARTURE: 05/09/25 19:42 Discharge Comment: Patient is accompanied by caregiver. DS: Summary Time Spent with Patient providing and/or coordinating discharge services: Less than 30 minutes Status at Discharge Functional status at discharge: independent ambulation Overall status at discharge: patient is back to baseline Mental Status: mental status grossly normal Speech and Movement: speech and movement normal Mood: congruent mood Affect: normal affect Quality:SDOH Health Related Social Needs: Health related social needs risk of homeless house/econ circumstance lonely/isolated education Health related social needs details so far im good Exam Narrative Exam Narrative: General: This is a very pleasant, elderly woman in no acute distress HEENT: Normocephalic, atraumatic CV: RRR Resp: CTAB Abd: NTND +NBS MSK: Voluntary motion x4 Neuro: awake, alert, no focal deficits Psych Mental Status: mental status grossly normal Speech and Movement: speech and movement normal Mood: congruent mood Affect: normal affect DS: Data Vitals/I&O Vitals and I&O: Vital Signs Temperature 37.2 C 05/09/25 11:18 Temperature Source Temporal Artery Scan 05/09/25 11:18 Pulse 72 05/09/25 11:18 Pulse Rhythm Regular 05/08/25 21:07 Pulse 115 H 05/08/25 20:50 Respiratory Rate 16 05/09/25 11:18 Respiratory Effort Normal 05/08/25 21:07 Respiratory Depth Normal 05/08/25 21:07 Respiratory Pattern Normal 05/08/25 21:07 Blood Pressure 109/86 05/09/25 11:18 Blood Pressure Mean 93 05/09/25 11:18 Pulse Oximetry 99 05/09/25 11:18 Oxygen Delivery Method Room Air 05/09/25 11:18 Oxygen Flow Rate 0 05/09/25 11:18 Pain Level 0 05/09/25 03:20 Intake & Output 05/08/25 05/09/25 05/09/25 23:59 11:59 23:59 Intake Total 240 / 720 480 / 720 Output Total 200 / 200 Balance 40 / 520 480 / 520 Weight 39.8 kg Intake: Oral 240 / 720 480 / 720 Output: Urine 200 / 200 Other: Urine Color Yellow Yellow Urine Appearance Clear Clear Urine Odor Normal Data Completed and Pending Labs on day of discharge: Labs from last 24 hours 05/09/25 05/09/25 05/08/25 13:10 06:05 18:49 WBC 3.62 L RBC 3.69 L Hgb 10.5 L Hct 32.0 L MCV 87 MCH 28.5 MCHC 32.8 RDW 14.3 Plt Count 240 MPV 10.1 Sodium 136 Potassium 4.2 Chloride 99 Carbon Dioxide 26.4 Anion Gap 10.6 BUN 22 H Creatinine 1.0 Est GFR (CKD-EPI 2020) 58.75 Glucose 128 H Calcium 8.9 Magnesium 1.8 Troponin I COVID-19 Source Nasopharynx SARS-CoV-2 (PCR) Negative Influenza Type A (PCR) Negative Influenza Type B (PCR) Negative Urine Legionella Ag Pending RSV (PCR) Negative 05/08/25 18:47 WBC RBC Hgb Hct MCV MCH MCHC RDW Plt Count MPV Sodium Potassium Chloride Carbon Dioxide Anion Gap BUN Creatinine Est GFR (CKD-EPI 2020) Glucose Calcium Magnesium Troponin I Cancelled COVID-19 Source SARS-CoV-2 (PCR) Influenza Type A (PCR) Influenza Type B (PCR) Urine Legionella Ag RSV (PCR) 05/08/25 17:30 Blood Blood Culture - Pending Preliminary micro results at discharge 05/08/25 15:55 Blood Blood Culture - Preliminary NO GROWTH 24 HOURS 05/08/25 17:30 [facility] All Active Problems (Updated 05/11/25 @ 18:37 by Elmer Rodriguez MD) Pneumonia (Acute) Acute exacerbation of chronic obstructive pulmonary disease (COPD) (Acute) Multifocal pneumonia (Acute) Acute exacerbation of chronic obstructive pulmonary disease (COPD) (Acute) Pulmonary nodules/lesions, multiple (Acute ~04/2025) History of bladder cancer (Acute) Superficial Bladder CA, yearly cysto for surveillance. Dr. Wiggins Advanced care planning/counseling discussion (Acute) Palliative care encounter (Acute) Weight loss (Acute) PVD (peripheral vascular disease) (Chronic) Pain in both feet (Acute) Onychomycosis (Acute) High risk for fracture due to osteoporosis by DEXA scan (Acute ~03/2023) RX Fosamax Poor manual dexterity (Acute) Lung nodule seen on imaging study (Acute ~10/2022) Annual LDCT Impaired gait and mobility (Acute) Chronic pain (Chronic) Due to OA shoulders, knees, Spinal stenosis. 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/03/16 Cervical myelopathy (Chronic) Spinal stenosis, lumbar region without neurogenic claudication (Acute 12/14/11) Osteoarthritis of spine with radiculopathy, cervical region (Acute 09/05/11) Sacroiliac joint dysfunction of right side (Acute) Spinal stenosis of lumbar region with radiculopathy (Acute) 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 Dr Velazco, [facility] Neurology Essential hypertension (Chronic 02/26/13) [place] cardiac risk >20% in next 10 years (Chronic) 2020: 32% Magnesium-losing nephropathy (Chronic) very mild; tx spironolactone GERD (gastroesophageal reflux disease) (Chronic) Depression (Chronic 07/01/14) Medical marijuana use (Chronic) Arthritis of left glenohumeral joint (Chronic ~07/01/14) Medical History Abnormal weight loss Urothelial carcinoma of bladder (~2016) [facility] Urology CHF exacerbation Acute cystitis Pneumonia Acute UTI Weakness Acute UTI Anemia Smoker Unintentional weight loss Leg edema Delayed gastric emptying mild Hyperlipidemia Neuropathy Sessile colonic polyp (03/14/18) Osteopenia (12/14/11) Osteoporosis wrist, osteopenia hip, normal bone density of spine 2017 osteopenia 2011 Adhesive capsulitis of left shoulder Injected 12/11/2018 Spinal stenosis Hx of bacterial pneumonia Surgical History H/O laminectomy (~06/2021) APD-L3-L4 laminectomy, medial fa for decompression of stenosis, lateral disectomy [id number] Cervical spondylosis 11/03/20 C5-[address] Everett Dunbar11/04/20 D/C'd home Status post shoulder hemiarthroplasty History of hemiarthroplasty of left shoulder 09/07/2015 H/O cystoscopy (09/06/18) w/transurethral resection of bladder tumors-Dr Wiggins Tenotomy and debridement tendon L shoulder (10/25/17) Rotator Cuff Repair Repair of umbilical hernia Hemiarthroplasty (09/07/15) L shoulder Dr Luz Colonoscopy - MAC (03/12/18) Colon,transverse,polyp,biopsy - fragment of sessile serrated adenoma. (Dr Neely) Breast, Lumpectomy Arthroplasty of knee Per patient she has not had a TOTAL KNEE Anterior Fusion Cervical Spine C3-C5 (07/31/16) Jul 2016, [facility] Dr. Martinez Family History Father Essential hypertension Glaucoma Alzheimer's dementia Social History Smoking/Tobacco Use Status: Former Tobacco Use Quit Date: 02/10/25 Smoking risk assessment performed?: Yes Alcohol Intake: former Drug use: Daily Substance use type: marijuana Details: marijuana: uses qd Last used Monday09/30/23 Household members: none Housing: house Number of Children: 0 Pets and animals: Yes Pets and animals: cat(s) and dog(s) Current gender identity: female What type of physical activity do you participate in: none and other Details: PT 2 xweek Frequency: 1-2 times per week Seatbelt use: always Drive intox or ride w/intox ice cream truck driver: No Working smoke detector in home: Yes Fire extinguisher in home: Yes Carbon monox detector in home: Yes Do you feel safe at home: Yes Do you feel safe in your relationship?: Yes Time Spent with Patient Time Spent with Patient: <45 minutes Time was spent: preparing to see the patient(eg.review tests), obtaining and/or reviewing separately otained hiistory, ordering medications,tests, procedures, referring, communicating with other health manager wound care, indepentently interpreting results, counseling the patient and care coordination
[2025-05-09] MEDS: Pravastatin 40 MG TAB PO (19:30)
[2025-05-09] MEDS: Mirtazapine 15 MG TAB 30 MG PO (19:31)
[2025-05-09 23:31] LABS: Legionella Ag Detection Urine Negative (Negative)
== END 2025-05-09 19:42 | disposition home or self-care (01) ==
LOC: ER 15:33 → MS 20:58
PROVIDERS: Admitting Provider Family Medicine; Emergency Provider Physician Assistant; PCP Nurse Practitioner Adult Health; Responsible Provider Family Medicine; Visit Provider Family Medicine
DX: J18.9 Pneumonia, unspecified organism (principal); J44.1 Chronic obstructive pulmonary disease with (acute) exacerbation; G89.4 Chronic pain syndrome; I10 Essential (primary) hypertension; K21.9 Gastro-esophageal reflux disease without esophagitis; J44.0 Chronic obstructive pulmonary disease with (acute) lower respiratory infection; R06.02 Shortness of breath; C67.9 Malignant neoplasm of bladder, unspecified; I73.9 Peripheral vascular disease, unspecified; B35.1 Tinea unguium; R91.1 Solitary pulmonary nodule; F32.A Depression, unspecified; M19.011 Primary osteoarthritis, right shoulder; F12.90 Cannabis use, unspecified, uncomplicated; M48.061 Spinal stenosis, lumbar region without neurogenic claudication; M54.16 Radiculopathy, lumbar region; G62.9 Polyneuropathy, unspecified; R63.4 Abnormal weight loss; Z68.1 Body mass index [BMI] 19.9 or less, adult; Z98.1 Arthrodesis status; Z87.891 Personal history of nicotine dependence
CPT/HCPCS: 00123; 36415; 71275; 80048; 80053; 85027; 87040; 87449; 87637; 93005; 94640; 96372; 96374; 96375; 99285; 83605; 83735; 83880; 84484; 85025; 93010; 99223; 99238; G0378; J1650; J2405; J2919; J3490; J7512; J7620

== ENCOUNTER 2025-05-19 12:04 | Emergency (ER) | payer MEDICARE, MEDICAID, SELFPAY ==
[2025-05-19 12:19] VITALS: BP 132/75; PULSE 73; RESP 18; TEMP 36.6; O2SAT 94
--- NOTE | 2025-05-19 13:00 | RT.EKG_ITS ---
APPROVED REPORT Exam: Resting ECG Reason for Exam: fatigue Patient Location: E HR:69 bpm ECG Measurements Heart Rate 69 AXIS WY 138 P 71 QRSd 67 QRS 47 QT 402 T 33 QTc 432 Conclusion Sinus rhythm...normal P axis, V-rate 60- 99 Probable left atrial enlargement...P >50mS, <-0.10mV V1
--- NOTE | 2025-05-19 13:00 | DI.CT_ITS ---
Exam(s) CT CHEST/ABD/PEL W EXAM: CT CHEST/ABD/PEL W CLINICAL HISTORY: recent pna, recurrent sxs, abd pain and rebound TECHNIQUE: Imaging Protocol: Axial computed tomography images with coronal and sagittal reformatted images were created and reviewed. Lung Computer Aided Detection (CAD) was utilized. CONTRAST MATERIAL: Intravenous: Omnipaque 350 contrast volume:60 mL Oral: No COMPARISON: CT CT THORAX ABD/PEL CTA from 09/24/[address] CHEST/ABD/PEL W from 05/05/[address] CHEST PE CTA from 05/08/2025 FINDINGS: CHEST: Tracheobronchial tree: There is still some mucous plugging in the right lower lobe. No evidence of bronchiectasis. Pulmonary parenchyma: Moderate emphysematous changes are present in the lungs. There is underlying chronic interstitial disease in the lung bases. The superimposed pulmonary infiltrates have nearly completely resolved. Stable nodules are seen in the lungs. There are no new infiltrates or nodules present. Visualized thyroid gland: Unremarkable. Mediastinum and Amarilis: No dominant adenopathy or fluid collection. The esophagus is unremarkable. Pleura: No effusion or pneumothorax. Heart: The heart is not dilated. There is 3 vessel coronary artery calcification present. No pericardial effusion. Pulmonary arteries: Due to the timing of the bolus, there is suboptimal opacification of the pulmonary arteries for evaluation of pulmonary emboli. No large central pulmonary embolism is present. Aorta: Thoracic aorta non-dilated. Atherosclerotic calcification is present. Lymph nodes: Within normal limits. Soft tissues: Unremarkable. Bones:Within normal limits for the patient's age. ABDOMEN: Liver: Normal density. No measurable mass. Portal, Superior Mesenteric, and Splenic Veins: Unremarkable. Gallbladder and Biliary Tract: No radiodense calculus or dilation. Pancreas: Normal density, no abnormal calcifications or inflammatory process. Spleen: Normal. Adrenals: There is stable thickening of the limbs of the adrenal glands. Kidneys: Normal size, contour and axis. There is a nonobstructing stone in the lower pole of the left kidney. There is stable bilateral simple renal cysts. No follow-up is recommended. Abdominal Aorta: Abdominal portion non-dilated. Atherosclerotic calcification is present. Bowel: There is wall thickening in the mid body of the stomach (series 13, image 179). This may be due to underdistention but gastritis cannot be excluded. The appendix is of normal caliber. It is less than 5 mm in diameter. There is no appendicoliths. There is no pneumatosis. Peritoneal Cavity: There is a small amount of pelvic ascites. No definite free air. No portal venous gas is seen. The mesenteric evaluation is limited due to a paucity of intra-abdominal fat. Lymph Nodes: Within normal limits. Bones: Within normal limits for the patient's age. Soft Tissues: Unremarkable. PELVIS: Bladder: Symmetric distention, no gross wall thickening. Reproductive Organs: Fibroid uterus. Lymph Nodes: Within normal limits. Bones: Within normal limits. There is marked disc space narrowing at L3-4 and L4-L5. There is grade 1 anterolisthesis of L3 on L4. The bones are stable in appearance. IMPRESSION: 1. There is an overall improved appearance of the lungs compared to the prior examination from 05/08/2025. No new infiltrates are present. 2. Thickening of the mid body of the stomach. This may be due to underdistention but gastritis cannot be excluded. Please correlate clinically. 3. Normal appendix. 4. Small amount of pelvic ascites. 5. No large quantity of free intraperitoneal air or portal venous gas is seen. RADIATION DOSE DELIVERED: 345.77mGy.cm Total DLP DATA REPOSITORY: All CT scans at this facility are submitted to the National Radiology Data Registry (NRDR) Dose Index Registry (DIR) with the [employer] (ACR). RADIATION OPTIMIZATION: All CT scans at this facility use at least one of these dose optimization techniques: automated exposure control; mA and/or kV adjustment per patient size (includes targeted exams where dose is matched to clinical indication); or iterative reconstruction.
[2025-05-19 13:04] LABS: Abs Immature Grans 0.11 10^3/uL (0.0-0.06); HCT 34.2 % (36.0-46.0); HGB 11.1 g/dL (11.2-15.7); Immature Grans % 0.9 %; MCH 28.5 pg (27.0-33.0); MCHC 32.5 % (32.0-36.0); MCV 88 fL (80-95); MPV 10.6 fL (8.0-11.0); Platelet Count 225 10^3/uL (130-400); RBC 3.89 10^6/uL (3.93-5.22); RDW 14.9 % (11.7-14.6); RDW-SD 47.7 fL; WBC 11.74 10^3/uL (4.4-10.8)
[2025-05-19] MEDS: Normal Saline Flush 10 ML SYR IVP (13:34)
[2025-05-19] MEDS: Normal Saline - Diluent 50 ML VIAL IJ (13:34)
[2025-05-19] MEDS: Omnipaque 350 MG/ML 100 ML BTL IJ (13:35)
[2025-05-19 14:03] LABS: COVID-19 PCR Negative (Negative); RSV PCR Negative (Negative)
[2025-05-19] MEDS: Lactated Ringers 1,000 ML 1000 ML IV (14:15)
[2025-05-19] MEDS: Ondansetron O.D.T. 4 MG TABEF PO (14:15)
[2025-05-19] MEDS: ACETAMINOPHEN 500 MG/50 ML BAG 200 MG IVPB (14:15)
[2025-05-19 14:30] LABS: ALT 95 U/L (14-59); AST 30 U/L (15-37); Albumin 3.4 g/dL (3.4-5.0); Alkaline Phosphatase 120 U/L (46-116); Anion Gap 8.9 mmol/L (3-11); BUN 25 mg/dL (7-18); Bilirubin, Total 0.8 mg/dL (0.2-1.0); CO2 27.1 mmol/L (21.0-32.0); Calcium 8.9 mg/dL (8.5-10.1); Chloride 101 mmol/L (98-107); Estimated GFR 90.14 (mL/min/1.73m2); Glucose 95 mg/dL (74-106); Magnesium 2.0 mg/dL (1.8-2.4); Potassium 4.2 mmol/L (3.5-5.1); Sodium 137 mmol/L (136-145); Total Protein 6.9 g/dL (6.4-8.2); Troponin I 4 ng/L (<or=51)
--- NOTE | 2025-05-19 14:39 | ED.GENADUL_ITS ---
Discharge Plan Disposition Patient Disposition: Home Condition: Stable Discharge Details Clinical Impression: Pneumonia, COPD with acute exacerbation, Fatigue, Gastritis Primary Care Provider: Chanel Nelson ED Provider: Darnell Murphy Home Meds and New Rx's Prescriptions: New famotidine [Pepcid] 20 mg tablet 20 mg PO BID Qty: 14 0RF albuterol sulfate [Ventolin HFA] 90 mcg/actuation HFA aerosol inhaler 2 puff inhalation Q6H PRNQty: 8.5 0RF Continued acetaminophen [Tylenol Arthritis Pain] 650 mg tablet extended release 650 mg PO BID PRN ketoconazole 2 % cream 1 applic topical DAILY Qty: 120 6RF Rx Instructions: Apply to toenails once daily simethicone [Gas Relief (simethicone)] 80 mg tablet,chewable 80 mg PO TID-QID PRN (Reason: abdominal distention) Qty: 40 0RF Rx Instructions: Bloating, bubbling/gas in abdomen ibuprofen 200 mg capsule 200 mg PO BID PRN ondansetron 4 mg tablet,disintegrating 4 mg PO DAILY PRN (Reason: nausea and vomiting) Qty: 90 3RF pantoprazole 20 mg tablet,delayed release (DR/EC) See Rx Instructions .ROUTE .COMPLEX Qty: 180 3RF Dose Instruction: TAKE 1 TABLET TWICE DAILY FOR REFLUX Rx Instructions: TAKE 1 TABLET TWICE DAILY FOR REFLUX duloxetine 60 mg capsule,delayed release(DR/EC) 60 mg PO DAILY Qty: 90 3RF pravastatin 40 mg tablet See Rx Instructions .ROUTE .COMPLEX Qty: 90 3RF Dose Instruction: TAKE 1 TABLET EVERY DAY Rx Instructions: TAKE 1 TABLET EVERY DAY pregabalin 225 mg capsule 225 mg PO BID Qty: 60 0RF Rx Instructions: Dose increase back to baseline Neuro dosing 10/10/2024 mirtazapine 30 mg tablet 30 mg PO QHS Qty: 90 3RF celecoxib 200 mg capsule See Rx Instructions .ROUTE .COMPLEX Qty: 90 3RF Dose Instruction: TAKE 1 CAPSULE EVERY DAY IN THE MORNING WITH FOOD FOR CHRONIC SPINE PAIN (CERVICAL AND LUMBAR) Rx Instructions: TAKE 1 CAPSULE EVERY DAY IN THE MORNING WITH FOOD FOR CHRONIC SPINE PAIN (CERVICAL AND LUMBAR) potassium chloride 10 mEq capsule, extended release See Rx Instructions .ROUTE .COMPLEX Qty: 90 3RF Dose Instruction: TAKE 1 CAPSULE EVERY DAY Rx Instructions: TAKE 1 CAPSULE EVERY DAY spironolactone 25 mg tablet See Rx Instructions .ROUTE .COMPLEX Qty: 90 3RF Dose Instruction: TAKE 1 TABLET EVERY DAY FOR MAGNESIUM WASTING Rx Instructions: TAKE 1 TABLET EVERY DAY FOR MAGNESIUM WASTING cetirizine 10 mg tablet See Rx Instructions .ROUTE .COMPLEX Qty: 90 0RF Dose Instruction: TAKE 1 TABLET ONE TO TWO TIMES PER DAY. TAKE LOWEST EFFECTIVE DOSE Rx Instructions: TAKE 1 TABLET ONE TO TWO TIMES PER DAY. TAKE LOWEST EFFECTIVE DOSE magnesium oxide 400 mg (241.3 mg magnesium) tablet See Rx Instructions .ROUTE .COMPLEX Qty: 90 3RF Dose Instruction: TAKE 1 TABLET EVERY DAY Rx Instructions: TAKE 1 TABLET EVERY DAY amlodipine 2.5 mg tablet See Rx Instructions .ROUTE .COMPLEX Qty: 90 3RF Dose Instruction: TAKE 1 TABLET EVERY DAY Rx Instructions: TAKE 1 TABLET EVERY DAY guaifenesin [Mucus Relief ER] 600 mg Tablet Extended Release 12hr 600 mg PO BID Qty: 10 0RF prednisone 20 mg Tablet 40 mg PO DAILY Qty: 8 0RF levofloxacin 750 mg Tablet 750 mg PO Q48H Qty: 6 0RF Rx Instructions: to start MondayMay 11. Course initiated in the hospital on May 19. Discharge Instructions Instructions: COPD Exacerbation, Adult ED, Gastritis ED Additional Instructions: Please follow-up with your primary care physician. Use albuterol inhaler with spacer as follows: 2 puffs every 4-6 hours as needed for shortness of breath or wheeze. Please follow-up with pulmonology. Complete full course of antibiotic. Drink plenty of fluid to stay hydrated and allow for plenty of rest. Return to the emergency department immediately for any worsening or new concerning symptoms. Referrals: Chanel Nelson NP [Primary Care Provider, Medicine] Discharge Data Discharge Date/Time-TO BE ENTERED AT DEPARTURE: 05/19/25 15:29 HPI General Date/Time Provider Initiated Documentation: 05/19/25 12:25 . Limitations to Documentation: no limitations . Information obtained by: patient and RN notes reviewed . HPI Narrative: HISTORY OF PRESENT ILLNESS 75yo female with mulitple medical problems, recent hospitalization with pna p resents with cough, dehydration, and abdominal pain. Hospitalized twice, 2.5-3 weeks ago and 1.5 weeks ago. Condition improved over the past week and a half, taking levaquin as prescribed. Symptoms worsened yesterday. Reports extreme fatigue, mild dyspnea, and persistent cough. Missed levofloxacin dose this morning due to nausea; scheduled to complete course on Monday. No fevers or tick bites. No recent travel. Quit smoking in January 2025 but uses marijuana. No alcohol or other drug use. Reports dehydration and nausea. Abdominal pain due to bloating started a few days ago, possibly a side effect of the antibiotic. Severe lumbar back pain. Related Data Home Medications ?Medication ?Instructions ?Recorded ?Confirmed ketoconazole 2 % topical cream 1 applic topical DAILY #120 grams 11/14/23 05/19/25 simethicone 80 mg chewable tablet 80 mg PO TID-QID PRN abdominal 07/03/24 05/19/25 (Gas Relief (simethicone)) distention #40 tabs pantoprazole 20 mg tablet,delayed See Rx Instructions .Route 11/06/24 05/19/25 release .COMPLEX #180 tabs duloxetine 60 mg capsule,delayed 60 mg PO DAILY #90 ca ps 12/12/24 05/19/25 release pravastatin 40 mg tablet See Rx Instructions .Route 0 01/20/25 05/19/25 .COMPLEX #90 tabs pregabalin 225 mg capsule 225 mg PO BID #60 caps 02/0405/19/25 mirtazapine 30 mg tablet 30 mg PO QHS #90 tabs 05/19/25 acetaminophen 650 mg 650 mg PO BID PRN 02/18/25 0 05/19/25 tablet,extended release (Tylenol Arthritis Pain) ibuprofen 200 mg capsule 200 mg PO BID PRN 02/18/25 0 05/19/25 celecoxib 200 mg capsule See Rx Instructions .Route 0 02/24/25 05/19/25 .COMPLEX #90 caps potassium chloride 10 mEq See Rx Instructions .Route 0 02/24/25 05/19/25 capsule,extended release .COMPLEX #90 caps cetirizine 10 mg tablet See Rx Instructions .Route 0 03/24/25 05/19/25 .COMPLEX #90 tabs spironolactone 25 mg tablet See Rx Instructions .Route 03/24/25 05/19/25 .COMPLEX #90 tabs magnesium oxide 400 mg (241.3 mg See Rx Instructions . Route 03/31/25 05/19/25 magnesium) tablet .COMPLEX #90 tabs amlodipine 2.5 mg tablet See Rx Instructions .Route 0 04/03/25 05/19/25 .COMPLEX #90 tabs guaifenesin 600 mg tablet, 600 mg PO BID #10 tabs 03/2605/19/25 extended release 12 hr (Mucus Relief ER) levofloxacin 750 mg tablet 750 mg PO Q48H #6 tabs 04/2505/19/25 prednisone 20 mg tablet 40 mg (2 x 20 mg) PO DAILY # 8 tabs 05/09/25 05/19/25 ondansetron 4 mg disintegrating 4 mg PO DAILY PRN naus ea and 05/15/25 05/19/25 tablet vomiting #90 tabs albuterol sulfate 90 mcg/actuation 2 puff inhalation Q 6H PRN #8.5 05/19/25 aerosol inhaler (Ventolin HFA) grams famotidine 20 mg tablet (Pepcid) 20 mg PO BID #14 tabs 05/19/25 Previous Rx's ?Medication ?Instructions ?Recorded ketoconazole 2 % topical cream 1 applic topical DAILY #120 grams 11/14/23 simethicone 80 mg chewable tablet 80 mg PO TID-QID PRN abdominal 07/03/24 (Gas Relief (simethicone)) distention #40 tabs pantoprazole 20 mg tablet,delayed See Rx Instructions .Route 11/06/24 release .COMPLEX #180 tabs duloxetine 60 mg capsule,delayed 60 mg PO DAILY #90 ca ps 12/12/24 release pravastatin 40 mg tablet See Rx Instructions .Route 0 01/20/25 .COMPLEX #90 tabs pregabalin 225 mg capsule 225 mg PO BID #60 caps 02/04 mirtazapine 30 mg tablet 30 mg PO QHS #90 tabs celecoxib 200 mg capsule See Rx Instructions .Route 0 02/24/25 .COMPLEX #90 caps potassium chloride 10 mEq See Rx Instructions .Route 0 02/24/25 capsule,extended release .COMPLEX #90 caps cetirizine 10 mg tablet See Rx Instructions .Route 0 03/24/25 .COMPLEX #90 tabs spironolactone 25 mg tablet See Rx Instructions .Route 03/24/25 .COMPLEX #90 tabs magnesium oxide 400 mg (241.3 mg See Rx Instructions . Route 03/31/25 magnesium) tablet .COMPLEX #90 tabs amlodipine 2.5 mg tablet See Rx Instructions .Route 0 04/03/25 .COMPLEX #90 tabs guaifenesin 600 mg tablet, 600 mg PO BID #10 tabs 03/26 11/19 extended release 12 hr (Mucus Relief ER) levofloxacin 750 mg tablet 750 mg PO Q48H #6 tabs 04/25 02/16 prednisone 20 mg tablet 40 mg (2 x 20 mg) PO DAILY # 8 tabs 05/09/25 ondansetron 4 mg disintegrating 4 mg PO DAILY PRN naus ea and 05/15/25 tablet vomiting #90 tabs albuterol sulfate 90 mcg/actuation 2 puff inhalation Q 6H PRN #8.5 05/19/25 aerosol inhaler (Ventolin HFA) grams famotidine 20 mg tablet (Pepcid) 20 mg PO BID #14 tabs 05/19/25 Allergies Allergy/AdvReac Type Severity Reaction Status Date / Time ciprofloxacin Allergy Other (See Verified 05/19/25 12:16 Comment) codeine AdvReac Intermediate Nausea Verified 05/19/25 12:16 nitrofurantoin AdvReac Intermediate bloating, Verified 05/19/25 12:16 weakness oxycodone AdvReac Intermediate GI issues Verified 05/19/25 12:16 hydrochlorothiazide AdvReac Mild hypomagnese Verified 05/19/25 12:16 pop narcotics AdvReac Intermediate Nausea, Uncoded 05/19/25 12:16 vomiting General Stated Complaint: SOB ROSENDO: 3 Review of Systems All systems reviewed & are unremarkable except as noted in HPI and below Respiratory Respiratory: Reports cough Exam Const General: cooperative and no acute distress [facility] Mouth: mucous membranes dry Eyes Conjunctivae: normal conjunctivae Sclera: normal sclerae Neck Neck: trachea midline and supple Resp Effort & Inspection: able to speak in complete sentences and not labored Auscultation: no rales and no rhonchi Other: diminished BS right baase Cardio Jugular venous pressure: no JVD Rate: regular rate and not tachycardic Rhythm: regular rhythm GI Palpation: soft, not firm, no guarding, no masses, not rigid and tender in the epigastrum; with no rebound tenderness Skin General skin exam: no rashes or lesions noted Neuro General: patient alert, patient awake, patient oriented x3 and tone normal Extrem General: no calf tenderness and no edema Psych Appearance: grossly normal Mental Status: mental status grossly normal Speech and Movement: speech and movement normal Course Vital Signs Vital signs: Vital Signs Temperature 36.6 C 05/19/25 12:19 Pulse 73 05/19/25 12:19 Respiratory Rate 18 05/19/25 12:19 Blood Pressure 132/75 05/19/25 12:19 Pulse Oximetry 94 05/19/25 12:19 Temperature 36.6 C 05/19/25 12:19 Temperature Source Oral 05/19/25 12:19 Pulse 73 05/19/25 12:19 Respiratory Rate 18 05/19/25 12:19 Blood Pressure 132/75 05/19/25 12:19 Pulse Oximetry 94 05/19/25 12:19 Oxygen Delivery Method Room Air 05/19/25 12:19 Oxygen Flow Rate 0 05/19/25 12:19 Pain Level 6 05/19/25 12:19 Lab/Test Results Lab/Test Results: 05/19/25 13:15 Blood Blood Culture - Pending 05/19/25 13:03 Blood Blood Culture - Pending Laboratory Tests Range/Units 05/19/25 05/19/25 05/19/25 12:35 12:51 13:15 WBC (4.4-10.8) 10^3/uL 11.74 H RBC (3.93-5.22) 10^6/uL 3.89 L Hgb (11.2-15.7) g/dL 11.1 L Hct (36.0-46.0) % 34.2 L MCV (80-95) fL 88 MCH (27.0-33.0) pg 28.5 MCHC (32.0-36.0) % 32.5 RDW (11.7-14.6) % 14.9 H Plt Count (130-400) 10^3/uL 225 MPV (8.0-11.0) fL 10.6 Immature Gran % % 0.9 Neutrophils % % 81.2 Lymphocytes % % 11.8 Monocytes % % 3.8 Eosinophils % % 2.1 Basophils % % 0.2 Nucleated RBC % (0.0-0.3) % 0.0 Absolute Neutrophils (1.2-6.7) 10^3/uL 9.53 H Absolute Lymphocytes (1.2-3.4) 10^3/uL 1.39 Absolute Monocytes (0.1-0.8) 10^3/uL 0.45 Absolute Eosinophils (0.0-0.7) 10^3/uL 0.25 Absolute Basophils (0.0-0.2) 10^3/uL 0.02 VBG Lactate (<or=2.0) mmol/L 1.0 Sodium (136-145) mmol/L 137 Potassium (3.5-5.1) mmol/L 4.2 Chloride (98-107) mmol/L 101 Carbon Dioxide (21.0-32.0) mmol/L 27.1 Anion Gap (3-11) mmol/L 8.9 BUN (7-18) mg/dL 25 H Creatinine (0.55-1.02) mg/dL 0.7 Est GFR (CKD-EPI 2020) (mL/min/1.73m2) 90.14 Glucose (74-106) mg/dL 95 Calcium (8.5-10.1) mg/dL 8.9 Magnesium (1.8-2.4) mg/dL 2.0 Total Bilirubin (0.2-1.0) mg/dL 0.8 AST (15-37) U/L 30 ALT (14-59) U/L 95 H Alkaline Phosphatase (46-116) U/L 120 H Troponin I (<or=51) ng/L 4 Total Protein (6.4-8.2) g/dL 6.9 Albumin (3.4-5.0) g/dL 3.4 Fluid Type Cancelled Fluid LDH Cancelled COVID-19 Source Nasopharynx SARS-CoV-2 (PCR) (Negative) Negative Influenza Type A (PCR) (Negative) Negative Influenza Type B (PCR) (Negative) Negative RSV (PCR) (Negative) Negative Medical Decision Making ASSESSMENT AND PLAN Initial Assessment: 75-year-old female with multiple medical problems recently hospitalized with PNA, presents with persistent cough, mild dyspnea, dehydration, and abdominal pain with bloating. Differential Diagnosis: - Persistent pneumonia vs pulmonary abscess: Persistent symptoms; CT chest to check for fluid collection or abscess; IV fluids for dehydration. - Acute intra-abdominal surgical process: Rebound tenderness; CT abdomen and pelvis to investigate cause of pain. ED Course: - IV fluids administered. - Ondansetron IV. - CT chest, abdomen, and pelvis interpreted by radiology: 1. There is an overall improved appearance of the lungs compared to the prior examination from 05/08/2025. No new infiltrates are present. 2. Thickening of the mid body of the stomach. This may be due to underdistention but gastritis cannot be excluded. Please correlate clinically. 3. Normal appendix. 4. Small amount of pelvic ascites. 5. No large quantity of free intraperitoneal air or portal venous gas is seen. - Labs reviewed and nondiagnostic. - Concern for COPD. Duoneb administered. - Patient reassessed and improved after neb. Requesting discharge. All results discussed. Inhaler with spacer provided. Final Assessment: IV fluids and ondansetron for dehydration and nausea. EKG and full blood work obtained. Blood cultures drawn. CT chest, abdomen, and pelvis ordered to investigate persistent symptoms and abdominal pain. Clinical Impression: - Persistent cough - Dehydration - Gatritis - COPD exacerbation Disposition: Discharge home with outpatient followup with PCP and pulmonoloy This document was written with the assistance of SAUL Roque. The patient consented to its use. Imaging Data Radiologic Study: Imaging: CT Scan (chest, abd pelv) Radiologist's impression: 1. There is an overall improved appearance of the lungs compared to the prior examination from 05/08/2025. No new infiltrates are present. 2. Thickening of the mid body of the stomach. This may be due to underdistention but gastritis cannot be excluded. Please correlate clinically. 3. Normal appendix. 4. Small amount of pelvic ascites. 5. No large quantity of free intraperitoneal air or portal venous gas is seen. Quality:SDOH Health Related Social Needs: Health related social needs risk of homeless house/eco n circumstance lonely/isolated education Health related social needs details so far im good PFSH All Active Problems (Updated 05/19/25 @ 15:17 by Darnell Murphy MD) Gastritis (Acute) Fatigue (Acute) COPD with acute exacerbation (Acute) Pneumonia (Acute) Chronic nausea (Acute) Ondansetron effective Multifocal pneumonia (Acute) Pulmonary nodules/lesions, multiple (Acute ~04/2025) History of bladder cancer (Acute) Superficial Bladder CA, yearly cysto for surveillance. Dr. Wiggins Advanced care planning/counseling discussion (Acute) Palliative care encounter (Acute) Weight loss (Acute) PVD (peripheral vascular disease) (Chronic) Pain in both feet (Acute) Onychomycosis (Acute) High risk for fracture due to osteoporosis by DEXA scan (Acute ~03/2023) RX Fosamax Poor manual dexterity (Acute) Lung nodule seen on imaging study (Acute ~10/2022) Annual LDCT Impaired gait and mobility (Acute) Chronic pain (Chronic) Due to OA shoulders, knees, Spinal stenosis. 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/03/16 Cervical myelopathy (Chronic) Spinal stenosis, lumbar region without neurogenic claudication (Acute 12/14/11) Osteoarthritis of spine with radiculopathy, cervical region (Acute 09/05/11) Sacroiliac joint dysfunction of right side (Acute) Spinal stenosis of lumbar region with radiculopathy (Acute) 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 Dr Velazco, [facility] [place] [facility] Essential hypertension (Chronic 02/26/13) Nathalie cardiac risk >20% in next 10 years (Chronic) 2020: 32% Magnesium-losing nephropathy (Chronic) very mild; tx spironolactone GERD (gastroesophageal reflux disease) (Chronic) Depression (Chronic 07/01/14) Medical marijuana use (Chronic) Arthritis of left glenohumeral joint (Chronic ~07/01/14) Medical History Abnormal weight loss Urothelial carcinoma of bladder (~2016) [facility] CHF exacerbation Acute cystitis Pneumonia Acute UTI Weakness Acute UTI Anemia Smoker Unintentional weight loss Leg edema Delayed gastric emptying mild Hyperlipidemia Neuropathy Sessile colonic polyp (03/14/18) Osteopenia (12/14/11) Osteoporosis wrist, osteopenia hip, normal bone density of spine 2017 osteopenia 2011 Adhesive capsulitis of left shoulder Injected 12/11/2018 Spinal stenosis Hx of bacterial pneumonia Surgical History H/O laminectomy (~06/2021) APD-L3-L4 laminectomy, medial fa for decompression of stenosis, lateral disectomy [id number] Cervical spondylosis 11/03/20 C5-[address] Everett Cardoza 11/04/20 D/C'd home Status post shoulder hemiarthroplasty History of hemiarthroplasty of left shoulder 09/07/2015 H/O cystoscopy (09/06/18) w/transurethral resection of bladder tumors-Dr Wiggins Tenotomy and debridement tendon L shoulder (10/25/17) Rotator Cuff Repair Repair of umbilical hernia Hemiarthroplasty (09/07/15) L shoulder Dr Luz [place] [facility] [place] Colon,transverse,polyp,biopsy - fragment of sessile serrated adenoma. (Dr Neely) Breast, Lumpectomy Arthroplasty of knee Per patient she has not had a TOTAL KNEE Anterior Fusion Cervical Spine C3-C5 (07/31/16) Jul 2016, [facility] [place] Family History Father Essential hypertension Glaucoma Alzheimer's dementia Social History Smoking/Tobacco Use Status: Former Tobacco Use Quit Date: 02/10/25 Smoking risk assessment performed?: Yes Alcohol Intake: former Drug use: Daily Substance use type: marijuana Details: marijuana: uses qd Last used Monday09/30/23 Household members: none Housing: house Number of Children: 0 Pets and animals: Yes Pets and animals: cat(s) and dog(s) Current gender identity: female What type of physical activity do you participate in: none and other Details: PT 2 xweek Frequency: 1-2 times per week Seatbelt use: always Drive 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
[2025-05-19] MEDS: Prochlorperazine 5 MG TAB PO (14:53)
[2025-05-19] MEDS: Famotidine 20 MG TAB PO (14:53)
[2025-05-19] MEDS: Albuterol HFA 8 GM 60 PUFF INH IH (14:53)
[2025-05-19] MEDS: Albuterol/Ipratropium 3 ML UPD VIAL UPD (14:53)
[2025-05-19 22:03] LABS: Legionella Ag Detection Urine Negative (Negative)
== END 2025-05-19 15:29 | disposition home or self-care (01) ==
PROVIDERS: Emergency Provider Student in an Organized Health Care Education/Training Program; PCP Nurse Practitioner Adult Health
DX: J18.9 Pneumonia, unspecified organism (principal); J44.1 Chronic obstructive pulmonary disease with (acute) exacerbation; R53.83 Other fatigue; K29.70 Gastritis, unspecified, without bleeding; Z59.811 Housing instability, housed, with risk of homelessness; Z60.8 Other problems related to social environment
CPT/HCPCS: 74177; 80053; 87040; 87449; 87637; 93005; 94640; 96361; 96374; 99285; 71260; 83605; 83615; 83735; 84484; 85025; 93010; 99284; J0131; J3490; J7620

== ENCOUNTER 2025-07-15 00:20 | Outpatient (CLI) | payer MEDICARE, MEDICAID, SELFPAY ==
--- NOTE | 2025-07-15 11:29 | DI.RAD_ITS ---
Exam(s) XR SHOULDER LT COMPLETE 2+V EXAM: XR SHOULDER LT COMPLETE 2+V CLINICAL HISTORY: Should pain, ARM WEAKNESS, DEC ROM, M25.519 R29.898. TECHNIQUE: 2D digital imaging was performed of the left shoulder. Six images were obtained. AP, Grashey, Y-view and axillary views were obtained. COMPARISON: CR XR shoulder LT complete 2+V from 01/22/2019 CR XR SHOULDER LT COMPLETE 2+V from 08/11/2021 CR XR SHOULDER LT COMPLETE 2+V from 01/24/[address] CHEST/ABD/PEL W from 05/19/2025 FINDINGS: BONES: No acute fracture is present. No bony destructive lesion is seen. There is again seen an old healed fracture deformity of the proximal left humerus. There is a nondisplaced fracture of the posterolateral aspect of the left 4th rib. It appears subacute. JOINTS: There is again seen a left shoulder prosthesis. There are no suspicious lucencies around the orthopedic hardware. Degenerative changes are seen at the acromioclavicular joint. SOFT TISSUE: Normal. IMPRESSION: Stable left shoulder prosthesis. No acute abnormality. DATA REPOSITORY: RADIATION DOSE DELIVERED:
--- NOTE | 2025-07-15 11:30 | DI.RAD_ITS ---
Exam(s) XR SHOULDER RT COMPLETE 2+V EXAM: XR SHOULDER RT COMPLETE 2+V CLINICAL HISTORY: Should pain, ARM WEAKNESS, DEC ROM, M25.519 R29.898. TECHNIQUE: 2D digital imaging was performed of the right shoulder. Five images were obtained. AP, Grashey, Y-view and axillary views were obtained. COMPARISON: No exams were available for comparison FINDINGS: BONES: No acute fracture is present. No bony destructive lesion is seen. There is an orthopedic anchor in the humeral head. JOINTS: There is superior subluxation of the humeral head relative to the glenoid which can be seen with chronic rotator cuff tear. Degenerative changes are seen at the acromioclavicular joint. There is marked narrowing of the glenohumeral joint. SOFT TISSUE: Normal. IMPRESSION: 1. Findings suspicious for chronic rotator cuff tear. 2. Degenerative changes seen at the glenohumeral joint and acromioclavicular joint. DATA REPOSITORY: RADIATION DOSE DELIVERED:
== END 2025-07-15 00:40 ==
PROVIDERS: PCP Nurse Practitioner Adult Health; Visit Provider Family Medicine
DX: M25.511 Pain in right shoulder (principal); M25.512 Pain in left shoulder; Z96.612 Presence of left artificial shoulder joint
CPT/HCPCS: 73030

== ENCOUNTER 2025-07-27 17:30 | Inpatient (IN) | payer MEDICARE, SELFPAY ==
[2025-07-27] VITALS (14 sets, daily range): BP systolic 140–186; BP diastolic 66–80; PULSE 76–98; RESP 16–18; TEMP 37.1–37.4; O2SAT 90–93
--- NOTE | 2025-07-27 17:30 | DI.RAD_ITS ---
Exam(s) XR PORTABLE CHEST AP EXAM: XR PORTABLE CHEST AP CLINICAL HISTORY: cough. TECHNIQUE: 2D digital imaging was performed. COMPARISON: CR XR CHEST 1V IN DI DEPT from 04/14/[address] CHEST PE CTA from 05/08/2025 FINDINGS: Single AP portable view. Heart size is upper normal. The mediastinum is not widened. There are mild increased interstitial markings. No obvious confluent infiltrates nor pleural effusions. Left shoulder prosthesis and right shoulder rotator cuff surgery evident. IMPRESSION: Mild increased interstitial markings mostly towards the lung bases. Please note that most prominent increased markings on the recent CT scan of 05/08/2025 were within the posterior basal segments of the lower lobes which are not well seen on this single AP portable view. Therefore recommend nonportable PA and lateral views when clinically possible. DATA REPOSITORY: RADIATION DOSE DELIVERED:
--- NOTE | 2025-07-27 17:59 | W.ED.GENAD ---
Discharge Plan Disposition Patient Disposition: Admit to [facility] Discharge Details Clinical Impression: Hypoxia Primary Care Provider: Chanel Nelson ED Provider: Mikey Hemphill Home Meds and New Rx's Prescriptions: No Action acetaminophen [Tylenol Arthritis Pain] 650 mg tablet extended release 650 mg PO BID PRN ketoconazole 2 % cream 1 applic topical DAILY Qty: 120 6RF Rx Instructions: Apply to toenails once daily simethicone [Gas Relief (simethicone)] 80 mg tablet,chewable 80 mg PO TID-QID PRN (Reason: abdominal distention) Qty: 40 0RF Rx Instructions: Bloating, bubbling/gas in abdomen ibuprofen 200 mg capsule 200 mg PO BID PRN ondansetron 4 mg tablet,disintegrating 4 mg PO DAILY PRN (Reason: nausea and vomiting) Qty: 90 3RF albuterol sulfate [Ventolin HFA] 90 mcg/actuation HFA aerosol inhaler 2 puff inhalation Q6H PRN (Reason: shortness of breath or wheezing) Qty: 8.5 3RF pregabalin 225 mg capsule 225 mg PO BID Qty: 60 0RF Rx Instructions: Dose increase back to baseline Neuro dosing 10/10/2024 pantoprazole 20 mg tablet,delayed release (DR/EC) See Rx Instructions .ROUTE .COMPLEX Qty: 180 3RF Dose Instruction: TAKE 1 TABLET TWICE DAILY FOR REFLUX Rx Instructions: TAKE 1 TABLET TWICE DAILY FOR REFLUX duloxetine 60 mg capsule,delayed release(DR/EC) 60 mg PO DAILY Qty: 90 3RF pravastatin 40 mg tablet See Rx Instructions .ROUTE .COMPLEX Qty: 90 3RF Dose Instruction: TAKE 1 TABLET EVERY DAY Rx Instructions: TAKE 1 TABLET EVERY DAY mirtazapine 30 mg tablet 30 mg PO QHS Qty: 90 3RF celecoxib 200 mg capsule See Rx Instructions .ROUTE .COMPLEX Qty: 90 3RF Dose Instruction: TAKE 1 CAPSULE EVERY DAY IN THE MORNING WITH FOOD FOR CHRONIC SPINE PAIN (CERVICAL AND LUMBAR) Rx Instructions: TAKE 1 CAPSULE EVERY DAY IN THE MORNING WITH FOOD FOR CHRONIC SPINE PAIN (CERVICAL AND LUMBAR) potassium chloride 10 mEq capsule, extended release See Rx Instructions .ROUTE .COMPLEX Qty: 90 3RF Dose Instruction: TAKE 1 CAPSULE EVERY DAY Rx Instructions: TAKE 1 CAPSULE EVERY DAY spironolactone 25 mg tablet See Rx Instructions .ROUTE .COMPLEX Qty: 90 3RF Dose Instruction: TAKE 1 TABLET EVERY DAY FOR MAGNESIUM WASTING Rx Instructions: TAKE 1 TABLET EVERY DAY FOR MAGNESIUM WASTING cetirizine 10 mg tablet See Rx Instructions .ROUTE .COMPLEX Qty: 90 0RF Dose Instruction: TAKE 1 TABLET ONE TO TWO TIMES PER DAY. TAKE LOWEST EFFECTIVE DOSE Rx Instructions: TAKE 1 TABLET ONE TO TWO TIMES PER DAY. TAKE LOWEST EFFECTIVE DOSE magnesium oxide 400 mg (241.3 mg magnesium) tablet See Rx Instructions .ROUTE .COMPLEX Qty: 90 3RF Dose Instruction: TAKE 1 TABLET EVERY DAY Rx Instructions: TAKE 1 TABLET EVERY DAY amlodipine 2.5 mg tablet See Rx Instructions .ROUTE .COMPLEX Qty: 90 3RF Dose Instruction: TAKE 1 TABLET EVERY DAY Rx Instructions: TAKE 1 TABLET EVERY DAY famotidine [Pepcid] 20 mg tablet 20 mg PO BID Qty: 14 0RF HPI General Date/Time Provider Initiated Documentation: 07/27/25 17:33. HPI Narrative: MDM/Narrative: Initial Assessment: 75-year-old female with worsening cough over the past week, deeper than usual, producing whitish sputum. No fever but has chills. Presentation concerning for possible COPD exacerbation versus pneumonia, or viral syndrome, less likely ACS/PE/CHF given clinical history. Will obtain screening labs, EKG and chest x-ray. Given patient's decreased O2 saturations compared to prior baselines in her chart history, will anticipate performing a ambulatory pulse oxygenation trial to determine disposition. ED Course: Patient notes mild improvement of her chest congestion following DuoNeb treatment. However when ambulating with a pulse oximetry, she is desaturating down to the mid 80s, feeling breathless and tired. Given the patient lives alone, has no supplemental O2 to use at home, I think she would benefit from further assessment in the inpatient setting for causes of hypoxia including echocardiogram she has not had one in 5 years and now has a significantly elevated BNP, and evaluation for possible home O2. Will obtain CT PE scan to r/o PE prior to admission. This document was created with assistance from [employer] The patient consented to its use. HPI: The patient is a 75-year-old female with a history of recurrent pneumonia, presenting with a deeper, productive cough accompanied by mucoid sputum. She denies pyrexia but reports experiencing rigors. The patient is not on supplemental oxygen therapy at home. She recently initiated inhaler therapy twice daily, which has not resulted in symptomatic improvement. She has no history of cardiac disease, peripheral edema, or leg pain. Additionally, she denies any recent falls, injuries, pharyngitis, or rhinorrhea. The patient received both influenza and COVID-19 vaccinations earlier this year. She reports brachialgia, which she has attempted to manage with acetaminophen and ibuprofen, albeit with limited relief. Her medical history includes rotator cuff surgery performed 15 years ago. ROS: Negative besides as mentioned above Exam: Vital signs: Reviewed. General Appearance: Alert and oriented. No acute distress. HEENT: NCAT, EOMI, not icteric. External ears normal. No rhinorrhea. Moist mucous membranes. Neck: Supple, full range of motion, no observable masses, No meningeal sign. Respiratory: Decreased breath sounds bilaterally, no significant wheezing or decreased air movement appreciated Cardiovascular: RRR, no edema. Gastrointestinal: Soft, nondistended, No rebound tenderness. Back: No midline tenderness to palpation or palpable step-offs of the C/T/L spine. Musculoskeletal: Shoulder/arm injury noted. Skin: Warm and dry, no rash. Neurological: Normal Gait, Grossly intact. Psychiatric: Appropriate for situation. Rhythm: NSR Rate: 83 [place]: Normal axis Intervals: Normal intervals Other findings: No acute ST segment or T wave changes to suggest acute ischemia. Labs: Laboratory Tests Range/Units 07/27/25 07/27/25 07/27/25 16:00 17:40 18:55 WBC (4.4-10.8) 10^3/uL 11.87 H RBC (3.93-5.22) 10^6/uL 3.68 L Hgb (11.2-15.7) g/dL 10.2 L Hct (36.0-46.0) % 32.0 L MCV (80-95) fL 87 MCH (27.0-33.0) pg 27.7 MCHC (32.0-36.0) % 31.9 L RDW (11.7-14.6) % 14.4 Plt Count (130-400) 10^3/uL 163 MPV (8.0-11.0) fL 10.8 Immature Gran % % 0.4 Neutrophils % % 84.7 Lymphocytes % % 8.8 Monocytes % % 5.1 Eosinophils % % 0.8 Basophils % % 0.2 Nucleated RBC % (0.0-0.3) % 0.0 Absolute Neutrophils (1.2-6.7) 10^3/uL 10.05 H Absolute Lymphocytes (1.2-3.4) 10^3/uL 1.04 L Absolute Monocytes (0.1-0.8) 10^3/uL 0.61 Absolute Eosinophils (0.0-0.7) 10^3/uL 0.09 Absolute Basophils (0.0-0.2) 10^3/uL 0.02 VBG pH (7.31-7.41) 7.42 H VBG pCO2 (41-51) mmHg 40 L VBG pO2 mmHg 39 VBG HCO3 (23-28) mmol/L 26 VBG Total CO2 (24-29) mmol/L 24 VBG O2 Saturation % 74 VBG Base Excess (-2-3) mmol/L 1 VBG Lactate (<or=2.0) mmol/L 1.1 Sodium (136-145) mmol/L 135 L Potassium (3.5-5.1) mmol/L 4.5 Chloride (98-107) mmol/L 99 Carbon Dioxide (21.0-32.0) mmol/L 24.9 Anion Gap (3-11) mmol/L 11.1 H BUN (7-18) mg/dL 15 Creatinine (0.55-1.02) mg/dL 0.8 Est GFR (CKD-EPI 2020) (mL/min/1.73m2) 76.79 Glucose (74-106) mg/dL 103 Calcium (8.5-10.1) mg/dL 9.1 Total Bilirubin (0.2-1.0) mg/dL 0.7 AST (15-37) U/L 27 ALT (14-59) U/L 22 Alkaline Phosphatase (46-116) U/L 134 H Troponin I (<or=51) ng/L 5 NT-Pro-B Natriuret Pep (<300) pg/mL 1687 H Total Protein (6.4-8.2) g/dL 7.4 Albumin (3.4-5.0) g/dL 3.9 Urine Color (Yellow) Yellow Urine Clarity (Clear) Clear Urine pH (5-8) 6.5 Ur Specific [place] (1.005-1.025) 1.020 Urine Protein (Neg-Trace) mg/dL 100 H Urine Ketones (Negative) mg/dL 15 H Urine Blood (Negative) Trace-lysed H Urine Nitrite (Negative) Negative Urine Bilirubin (Negative) Negative Urine Urobilinogen (Up to 0.2) mg/dL 0.2 Ur Leukocyte Esterase (Negative) Negative Urine RBC (0-2) HPF 0-2 Urine WBC (0-5) HPF Negative Ur Epithelial Cells (Negative) HPF Negative Urine Crystals (Negative) HPF Negative Urine Bacteria (Negative) HPF Negative Urine Mucus (Negative) Trace Ur Culture Indicated? No Urine Glucose (Negative) mg/dL Negative COVID-19 Source Cancelled SARS-CoV-2 (PCR) Cancelled Influenza Type A (PCR) Cancelled Influenza Type B (PCR) Cancelled RSV (PCR) Cancelled Radiology: Exam(s) XR PORTABLE CHEST AP EXAM: XR PORTABLE CHEST AP CLINICAL HISTORY: cough. TECHNIQUE: 2D digital imaging was performed. COMPARISON: CR XR CHEST 1V IN DI DEPT from 04/14/[address] CHEST PE CTA from 05/08/2025 FINDINGS: Single AP portable view. Heart size is upper normal. The mediastinum is not widened. There are mild increased interstitial markings. No obvious confluent infiltrates nor pleural effusions. Left shoulder prosthesis and right shoulder rotator cuff surgery evident. IMPRESSION: Mild increased interstitial markings mostly towards the lung bases. Please note that most prominent increased markings on the recent CT scan of 05/08/2025 were within the posterior basal segments of the lower lobes which are not well seen on this single AP portable view. Therefore recommend nonportable PA and lateral views when clinically possible. Related Data Home Medications Medication Instructions Recorded Confirmed ketoconazole 2 % topical cream 1 applic topical DAILY #120 grams 11/14/23 07/27/25 simethicone 80 mg chewable tablet 80 mg PO TID-QID PRN abdominal 07/03/24 07/27/25 (Gas Relief (simethicone)) distention #40 tabs pantoprazole 20 mg tablet,delayed See Rx Instructions .Route 11/06/24 07/27/25 release .COMPLEX #180 tabs duloxetine 60 mg capsule,delayed 60 mg PO DAILY #90 caps 12/12/24 07/27/25 release pravastatin 40 mg tablet See Rx Instructions .Route 01/20/25 07/27/25 .COMPLEX #90 tabs mirtazapine 30 mg tablet 30 mg PO QHS #90 tabs 02/05/25 07/27/25 acetaminophen 650 mg 650 mg PO BID PRN 02/18/25 07/27/25 tablet,extended release (Tylenol Arthritis Pain) ibuprofen 200 mg capsule 200 mg PO BID PRN 02/18/25 07/27/25 celecoxib 200 mg capsule See Rx Instructions .Route 02/24/25 07/27/25 .COMPLEX #90 caps potassium chloride 10 mEq See Rx Instructions .Route 02/24/25 07/27/25 capsule,extended release .COMPLEX #90 caps cetirizine 10 mg tablet See Rx Instructions .Route 03/24/25 07/27/25 .COMPLEX #90 tabs spironolactone 25 mg tablet See Rx Instructions .Route 03/24/25 07/27/25 .COMPLEX #90 tabs magnesium oxide 400 mg (241.3 mg See Rx Instructions .Route 03/31/25 07/27/25 magnesium) tablet .COMPLEX #90 tabs amlodipine 2.5 mg tablet See Rx Instructions .Route 04/03/25 07/27/25 .COMPLEX #90 tabs ondansetron 4 mg disintegrating 4 mg PO DAILY PRN nausea and 05/15/25 07/27/25 tablet vomiting #90 tabs famotidine 20 mg tablet (Pepcid) 20 mg PO BID #14 tabs 05/19/25 07/27/25 albuterol sulfate 90 mcg/actuation 2 puff inhalation Q6H PRN 06/19/25 07/27/25 aerosol inhaler (Ventolin HFA) shortness of breath or wheezing #8.5 grams pregabalin 225 mg capsule 225 mg PO BID #60 caps 07/11/25 07/27/25 Previous Rx's Medication Instructions Recorded ketoconazole 2 % topical cream 1 applic topical DAILY #120 grams 11/14/23 simethicone 80 mg chewable tablet 80 mg PO TID-QID PRN abdominal 07/03/24 (Gas Relief (simethicone)) distention #40 tabs pantoprazole 20 mg tablet,delayed See Rx Instructions .Route 11/06/24 release .COMPLEX #180 tabs duloxetine 60 mg capsule,delayed 60 mg PO DAILY #90 caps 12/12/24 release pravastatin 40 mg tablet See Rx Instructions .Route 01/20/25 .COMPLEX #90 tabs mirtazapine 30 mg tablet 30 mg PO QHS #90 tabs 02/05/25 celecoxib 200 mg capsule See Rx Instructions .Route 02/24/25 .COMPLEX #90 caps potassium chloride 10 mEq See Rx Instructions .Route 02/24/25 capsule,extended release .COMPLEX #90 caps cetirizine 10 mg tablet See Rx Instructions .Route 03/24/25 .COMPLEX #90 tabs spironolactone 25 mg tablet See Rx Instructions .Route 03/24/25 .COMPLEX #90 tabs magnesium oxide 400 mg (241.3 mg See Rx Instructions .Route 03/31/25 magnesium) tablet .COMPLEX #90 tabs amlodipine 2.5 mg tablet See Rx Instructions .Route 04/03/25 .COMPLEX #90 tabs ondansetron 4 mg disintegrating 4 mg PO DAILY PRN nausea and 05/15/25 tablet vomiting #90 tabs famotidine 20 mg tablet (Pepcid) 20 mg PO BID #14 tabs 05/19/25 albuterol sulfate 90 mcg/actuation 2 puff inhalation Q6H PRN 06/19/25 aerosol inhaler (Ventolin HFA) shortness of breath or wheezing #8.5 grams pregabalin 225 mg capsule 225 mg PO BID #60 caps 07/11/25 Allergies Allergy/AdvReac Type Severity Reaction Status Date / Time ciprofloxacin Allergy Other (See Verified 07/27/25 17:36 Comment) codeine AdvReac Intermediate Nausea Verified 07/27/25 17:36 nitrofurantoin AdvReac Intermediate bloating, Verified 07/27/25 17:36 weakness oxycodone AdvReac Intermediate GI issues Verified 07/27/25 17:36 hydrochlorothiazide AdvReac Mild hypomagnese Verified 07/27/25 17:36 pop narcotics AdvReac Intermediate Nausea, Uncoded 07/27/25 17:36 vomiting General Stated Complaint: RespSymp ROSENDO: 3 Course Vital Signs Vital signs: Vital Signs Temperature 37.4 C 07/27/25 17:34 Pulse 88 07/27/25 17:34 Respiratory Rate 16 07/27/25 17:34 Blood Pressure 186/80 H 07/27/25 17:34 Pulse Oximetry 91 L 07/27/25 17:34 Temperature 37.4 C 07/27/25 17:34 Temperature Source Oral 07/27/25 17:34 Pulse 88 07/27/25 17:34 Respiratory Rate 16 07/27/25 17:34 Blood Pressure 186/80 H 07/27/25 17:34 Blood Pressure Position Sitting 07/27/25 17:34 Pulse Oximetry 92 07/27/25 17:57 Oxygen Delivery Method Room Air 07/27/25 17:57 Oxygen Flow Rate 0 07/27/25 17:57 Medical Decision Making Quality:SDOH Health Related Social Needs: Health related social needs risk of homeless house/econ circumstance lonely/isolated education Health related social needs details so far im good PFSH All Active Problems (Updated 07/27/25 @ 19:53 by Mikey Hemphill MD) Hypoxia (Acute) Bilateral shoulder pain (Acute) Chronic nausea (Acute) Ondansetron effective Multifocal pneumonia (Acute) Pulmonary nodules/lesions, multiple (Acute ~04/2025) History of bladder cancer (Acute) Superficial Bladder CA, yearly cysto for surveillance. Dr. Wiggins Advanced care planning/counseling discussion (Acute) Palliative care encounter (Acute) Weight loss (Acute) PVD (peripheral vascular disease) (Chronic) Pain in both feet (Acute) Onychomycosis (Acute) High risk for fracture due to osteoporosis by DEXA scan (Acute ~03/2023) RX Fosamax Poor manual dexterity (Acute) Lung nodule seen on imaging study (Acute ~10/2022) Annual LDCT Impaired gait and mobility (Acute) Chronic pain (Chronic) Due to OA shoulders, knees, Spinal stenosis. 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/03/16 Cervical myelopathy (Chronic) Spinal stenosis, lumbar region without neurogenic claudication (Acute 12/14/11) Osteoarthritis of spine with radiculopathy, cervical region (Acute 09/05/11) Sacroiliac joint dysfunction of right side (Acute) Spinal stenosis of lumbar region with radiculopathy (Acute) 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 Dr Velazco, [facility] [place] Neurology Essential hypertension (Chronic 02/26/13) [place] cardiac risk >20% in next 10 years (Chronic) 2020: 32% Magnesium-losing nephropathy (Chronic) very mild; tx spironolactone GERD (gastroesophageal reflux disease) (Chronic) Depression (Chronic 07/01/14) Medical marijuana use (Chronic) Arthritis of left glenohumeral joint (Chronic ~07/01/14) Medical History (Updated 07/27/25 @ 19:53 by Mikey Hemphill MD) Abnormal weight loss Urothelial carcinoma of bladder (~2016) [facility] Urology Leg edema Osteopenia (12/14/11) Osteoporosis wrist, osteopenia hip, normal bone density of spine 2016 osteopenia 2011 CHF exacerbation Acute cystitis Pneumonia Acute UTI Weakness Acute UTI Anemia Smoker Unintentional weight loss Delayed gastric emptying mild Hyperlipidemia Neuropathy Sessile colonic polyp (03/14/18) Adhesive capsulitis of left shoulder Injected 12/11/2018 Spinal stenosis Hx of bacterial pneumonia Surgical History (Updated 05/16/25 @ 00:02 by NAOMY NAILS) H/O laminectomy (~06/2021) APD-L3-L4 laminectomy, medial fa for decompression of stenosis, lateral disectomy [id number] Cervical spondylosis 11/03/20 C5-[address] Everett Cardoza Day 11/04/20 D/C'd home Status post shoulder hemiarthroplasty History of hemiarthroplasty of left shoulder 09/07/2015 H/O cystoscopy (09/06/18) w/transurethral resection of bladder tumors-Dr Wiggins Tenotomy and debridement tendon L shoulder (10/25/17) Rotator Cuff Repair Repair of umbilical hernia Hemiarthroplasty (09/07/15) L shoulder Dr Luz Colonoscopy - [facility] [place] (03/12/18) Colon,transverse,polyp,biopsy - fragment of sessile serrated adenoma. (Dr Neely) Breast, Lumpectomy Arthroplasty of knee Per patient she has not had a TOTAL KNEE Anterior Fusion Cervical Spine C3-C5 (07/31/16) Jul 2016, [facility] [place] Dr. Martinez Family History Father Essential hypertension Glaucoma Alzheimer's dementia Social History Smoking/Tobacco Use Status: Former Tobacco Use Quit Date: 02/10/25 Smoking risk assessment performed?: Yes Alcohol Intake: former Drug use: Daily Substance use type: marijuana Details: marijuana: uses qd Last used Monday09/30/23 Household members: none Housing: house Number of Children: 0 Pets and animals: Yes Pets and animals: cat(s) and dog(s) Current gender identity: female What type of physical activity do you participate in: none and other Details: PT 2 xweek Frequency: 1-2 times per week Seatbelt use: always Drive intox or ride w/intox driver operator: No Working smoke detector in home: Yes Fire extinguisher in home: Yes Carbon monox detector in home: Yes Do you feel safe at home: Yes Do you feel safe in your relationship?: Yes
[2025-07-27] MEDS: Albuterol/Ipratropium 3 ML UPD VIAL UPD (18:00)
[2025-07-27 18:04] LABS: BE (Venous) 1 mmol/L (-2-3); HCO3 (Venous) 26 mmol/L (23-28); O2 Sat (Venous) 74 %; TCO2 (Venous) 24 mmol/L (24-29); pCO2 (Venous) 40 mmHg (41-51); pO2 (Venous) 39 mmHg
--- NOTE | 2025-07-27 18:05 | NUR.NOTE ---
Nursing Note: Pt refused flu/vid swab
[2025-07-27 18:08] LABS: Abs Immature Grans 0.05 10^3/uL (0.0-0.06); HCT 32.0 % (36.0-46.0); HGB 10.2 g/dL (11.2-15.7); Immature Grans % 0.4 %; MCH 27.7 pg (27.0-33.0); MCHC 31.9 % (32.0-36.0); MCV 87 fL (80-95); MPV 10.8 fL (8.0-11.0); Platelet Count 163 10^3/uL (130-400); RBC 3.68 10^6/uL (3.93-5.22); RDW 14.4 % (11.7-14.6); RDW-SD 46.2 fL; WBC 11.87 10^3/uL (4.4-10.8)
[2025-07-27 18:29] LABS: ALT 22 U/L (14-59); AST 27 U/L (15-37); Albumin 3.9 g/dL (3.4-5.0); Alkaline Phosphatase 134 U/L (46-116); Anion Gap 11.1 mmol/L (3-11); BUN 15 mg/dL (7-18); Bilirubin, Total 0.7 mg/dL (0.2-1.0); CO2 24.9 mmol/L (21.0-32.0); Calcium 9.1 mg/dL (8.5-10.1); Chloride 99 mmol/L (98-107); Glucose 103 mg/dL (74-106); Potassium 4.5 mmol/L (3.5-5.1); Sodium 135 mmol/L (136-145); Total Protein 7.4 g/dL (6.4-8.2); Troponin I 5 ng/L (<or=51)
--- NOTE | 2025-07-27 18:41 | RESPIRATORY ---
07/27/2025 Without prompting patient stated to this RT that she is not suicidal just tired. MD and RN aware of statement.
--- NOTE | 2025-07-27 18:45 | DI.CT_ITS ---
Exam(s) CT CHEST PE CTA EXAM: CT CHEST PE CTA CLINICAL HISTORY: hypoxia. TECHNIQUE: Imaging Protocol: Axial CT angiography was performed with multi- slice acquisition and multi-planar and/or 3D reconstructions. Lung Computer Aided Detection (CAD) was utilized. CONTRAST MATERIAL: Intravenous: Omnipaque 350 contrast volume:55 mL COMPARISON: CT CT CHEST LUNG CANCER SCREEN from 11/07/[address] CHEST W from 01/24/[address] CHEST/ABD/PEL W from 05/05/[address] CHEST PE CTA from 05/08/[address] CHEST/ABD/PEL W from 05/19/2025 FINDINGS: Examination is limited due to patient's arm positioning. Tracheobronchial tree: There is mucous plugging seen in the left lower lobe. No bronchiectasis. Pulmonary parenchyma: The 6 mm left lower lobe pulmonary nodule is stable. (Series 10, image 96). Centrilobular emphysematous changes are present. There is a stable 3-4 mm nodule in the lateral aspect of the right middle lobe (series 10, image 79). Atelectatic changes are seen in the lung bases. There is a small infiltrate in the periphery of the left lower lobe. This may represent aspiration.. Pulmonary Arteries: No evidence of filling defect to suggest pulmonary emboli. Mediastinum and [place]: No dominant adenopathy or fluid collection. The esophagus is unremarkable. Visualized thyroid gland: Unremarkable. Pleura: No effusion or pneumothorax. Heart: The heart is not dilated. Three vessel coronary artery calcification is present. No pericardial effusion. Aorta: Thoracic aorta non-dilated. No evidence of dissection. Atherosclerotic calcification is present. Upper abdomen: There is stable nodularity of the adrenal glands. There is a stable cyst in the superior pole of the right kidney. No follow-up is recommended. Soft tissues: Unremarkable. Bones: Within normal limits for the patient's age.There is anterior disc fusion seen in the lower cervical spine. IMPRESSION: 1. No evidence of pulmonary embolism, thoracic aortic dissection or aneurysm. 2. Mucous plugging seen in the left lower lobe. 3. There is a small infiltrate in the left lower lobe peripherally which may represent an aspiration. 4. The preliminary [facility] report was reviewed. RADIATION DOSE DELIVERED: 72.63mGy.cm Total DLP DATA REPOSITORY: All CT scans at this facility are submitted to the National Radiology Data Registry (NRDR) Dose Index Registry (DIR) with the [employer] (A[employer]). RADIATION OPTIMIZATION: All CT scans at this facility use at least one of these dose optimization techniques: automated exposure control; mA and/or kV adjustment per patient size (includes targeted exams where dose is matched to clinical indication); or iterative reconstruction.
--- NOTE | 2025-07-27 19:09 | NUR.NOTE ---
Walking oxygen trial per MD, PT oxygen dropped to 87 percent took about a minute to recover back to 90 percent. PT did not complain of SOB. Nursing Note:
[2025-07-27 19:10] LABS: Glucose Negative (Negative)
[2025-07-27 19:15] LABS: C & S Indicated? No; RBC 0-2 HPF (0-2); WBC Negative HPF (0-5)
[2025-07-27] MEDS: methylPREDNISolone SUCC 125 MG VIAL IVP (19:15)
[2025-07-27] MEDS: AZITHROMYCIN 500 MG in Normal Saline 250 ML 250 MG IVPB (19:15)
--- NOTE | 2025-07-27 19:15 | RT.EKG_ITS ---
APPROVED REPORT Exam: Resting ECG Reason for Exam: hypoxia Patient Location: E HR:83 bpm ECG Measurements Heart Rate 83 AXIS [place] 141 P 57 QRSd 79 QRS 38 QT 386 T 20 QTc 454 Conclusion Sinus rhythm...normal P axis, V-rate 60- 99 No STEMI
[2025-07-27] MEDS: Normal Saline - Diluent 50 ML VIAL IJ (19:17)
[2025-07-27] MEDS: Omnipaque 350 MG/ML 100 ML BTL IJ (19:17)
[2025-07-27 19:51] LABS: Troponin I 6 ng/L (<or=51)
--- NOTE | 2025-07-27 19:52 | HPE_ITS ---
Date of service: 07/27/25 Time of Service: 19:53 Assessment and Plan Assessment and plan (1) Acute hypoxic respiratory failure: Start date: 07/27/25 Status: Acute Assessment and plan: This is a 75-year-old lady who lives alone and is progressively becoming weak and less able to take care of herself. She presents with a 1 week history of respiratory symptoms and appears to have a left lower lobe pneumonia at least and COPD exacerbation with hypoxic respiratory failure. She was given Solu- Medrol in the ED and this will be continued IV with aggressive nebulizer treatments and IV Rocephin with IV doxycycline for treatment of left lower lobe infiltrate. O2 supplementation and PT to evaluate for increased safe ambulation to help with deep breathing. She also needs to be assessed for ability to live at home alone. Will update her echocardiogram with no overt history of CHF but elevated BNP upon admission. She may have progressive right-sided heart failure with her COPD and emphysema. She would not be diuresed and aggressive fluid resuscitation will be avoided. She is a full code. (2) Pneumonia: Start date: 07/27/25 Assessment and plan: IV Rocephin and doxycycline. Follow-up imaging as needed. (3) Acute exacerbation of chronic obstructive pulmonary disease (COPD): Start date: 07/27/25 Status: Acute Assessment and plan: Aggressive nebulizer treatments with IV Solu-Medrol. O2 supplementation either addressing long-term use at home versus weaning. She does have an element of emphysema and does not appear to be having CO2 retention with VBG actually having a low pCO2 and respiratory alkalosis with her acute respiratory presentation. (4) History of bladder cancer: Status: Chronic Assessment and plan: No mention of metastases patient does have a pulmonary nodule in the left lung which appears stable over the last several years. She is losing weight and becoming more debilitated and should review her CODE STATUS. (5) Depression: Status: Chronic Assessment and plan: Continue outpatient medical therapy. Patient needs increased help at home. (6) Essential hypertension: Status: Chronic Assessment and plan: Continue outpatient medical therapy with follow-up. (7) Chronic pain: Status: Chronic Assessment and plan: Continue outpatient medical therapy on Lyrica and NSAIDs. Physical therapy evaluation to increase safety with ambulation at home and assess for independent ADL activity and need for increased services. History of Present Illness History of Present Illness Chief Complaint: Increasing shortness of breath over 1 week with productive cough. Narrative: This is a 75-year-old female patient who lives alone and was having increasing respiratory symptoms and weakness over the last week prior to presentation. She was having a cough which was slightly productive of white sputum but no blood or change in sputum color. She had no fever or chills and does not wear oxygen at home but was found to be hypoxic upon presentation. She was placed on oxygen supplementation for pulse oximeter in the low 80s. Evaluation with imaging did reveal left lower lobe infiltrate is a possibility and some chronic changes along with a history of CHF by treatment on spironolactone though this also may be treating her hypertension. She also has chronic pain with decreasing mobility on the medical therapy but losing ability to function independently. She is very weak. Evaluation in ED did reveal the possibility of left lower lobe pneumonia but also possibility of CHF with most recent echocardiogram in 2019. She does have COPD and may have an element of right-sided heart failure progressing. She remains a full code and this should be reevaluated with her multisystem failure and inability to live independently as she appears to wish to maintain. Case management can work with her on increased care at home if not placement if she is failing. She does not have family living with her caring for her by her history. She has a history of bladder cancer and there has been a pulmonary nodule followed though nothing on imaging reveals overt metastases that should be considered. Review of Systems Narrative: 13 point review of system otherwise unrevealing or stable. Patient has been gradually losing weight and becoming weaker with less ability to do independent ADL activity. [facility] All Active Problems (Updated 07/28/25 @ 07:48 by Henry Vilchis) Acute hypoxic respiratory failure (Acute) Hypoxia (Acute) Bilateral shoulder pain (Acute) Chronic nausea (Acute) Ondansetron effective Multifocal pneumonia (Acute) Acute exacerbation of chronic obstructive pulmonary disease (COPD) (Acute) Pulmonary nodules/lesions, multiple (Acute ~04/2025) History of bladder cancer (Chronic) Superficial Bladder CA, yearly cysto for surveillance. Dr. Wiggins Advanced care planning/counseling discussion (Acute) Palliative care encounter (Acute) Weight loss (Acute) PVD (peripheral vascular disease) (Chronic) Pain in both feet (Acute) Onychomycosis (Acute) High risk for fracture due to osteoporosis by DEXA scan (Acute ~03/2023) RX Fosamax Poor manual dexterity (Acute) Lung nodule seen on imaging study (Acute ~10/2022) Annual LDCT Impaired gait and mobility (Acute) Chronic pain (Chronic) Due to OA shoulders, knees, Spinal stenosis. 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/03/16 Cervical myelopathy (Chronic) Spinal stenosis, lumbar region without neurogenic claudication (Acute 12/14/11) Osteoarthritis of spine with radiculopathy, cervical region (Acute 09/05/11) Sacroiliac joint dysfunction of right side (Acute) Spinal stenosis of lumbar region with radiculopathy (Acute) 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 [place] [facility] [place] [facility] [facility] Essential hypertension (Chronic 02/26/13) [place] cardiac risk >20% in next 10 years (Chronic) 2020: 32% Magnesium-losing nephropathy (Chronic) very mild; tx spironolactone GERD (gastroesophageal reflux disease) (Chronic) Depression (Chronic 07/01/14) Medical marijuana use (Chronic) Arthritis of left glenohumeral joint (Chronic ~07/01/14) Medical History Abnormal weight loss Urothelial carcinoma of bladder (~2016) [facility] Leg edema Osteopenia (12/14/11) Osteoporosis wrist, osteopenia hip, normal bone density of spine 2017 osteopenia 2011 CHF exacerbation Acute cystitis Pneumonia Acute UTI Weakness Acute UTI Anemia Smoker Unintentional weight loss Delayed gastric emptying mild Hyperlipidemia Neuropathy Sessile colonic polyp (03/14/18) Adhesive capsulitis of left shoulder Injected 12/11/2018 Spinal stenosis Hx of bacterial pneumonia Surgical History H/O laminectomy (~06/2021) APD-L3-L4 laminectomy, medial fa for decompression of stenosis, lateral disectomy [id number] Cervical spondylosis 11/03/20 C5-[address] Everett Meehan 11/04/20 D/C'd home Status post shoulder hemiarthroplasty History of hemiarthroplasty of left shoulder 09/07/2015 H/O cystoscopy (09/06/18) w/transurethral resection of bladder tumors-Dr Wiggins Tenotomy and debridement tendon L shoulder (10/25/17) Rotator Cuff Repair Repair of umbilical hernia Hemiarthroplasty (09/07/15) L shoulder Dr Luz Colonoscopy - MAC (03/12/18) Colon,transverse,polyp,biopsy - fragment of sessile serrated adenoma. (Dr Neely) Breast, Lumpectomy Arthroplasty of knee Per patient she has not had a TOTAL KNEE Anterior Fusion Cervical Spine C3-C5 (07/31/16) Jul 2016, [facility] [place] Family History Father Essential hypertension Glaucoma Alzheimer's dementia Social History Smoking/Tobacco Use Status: Former Tobacco Use Quit Date: 02/10/25 Smoking risk assessment performed?: Yes Alcohol Intake: former Drug use: Daily Substance use type: marijuana Details: marijuana: uses qd Last used Monday09/30/23 Household members: none Housing: house Number of Children: 0 Pets and animals: Yes Pets and animals: cat(s) and dog(s) Current gender identity: female What type of physical activity do you participate in: none and other Details: PT 2 xweek Frequency: 1-2 times per week Seatbelt use: always Drive intox or ride w/intox dedicated regional driver: No Working smoke detector in home: Yes Fire extinguisher in home: Yes Carbon monox detector in home: Yes Do you feel safe at home: Yes Do you feel safe in your relationship?: Yes Meds Allergies and Home Medications Allergies Allergy/AdvReac Type Severity Reaction Status Date / Time ciprofloxacin Allergy Other (See Verified 07/27/25 17:36 Comment) codeine AdvReac Intermediate Nausea Verified 07/27/25 17:36 nitrofurantoin AdvReac Intermediate bloating, Verified 07/27/25 17:36 weakness oxycodone AdvReac Intermediate GI issues Verified 07/27/25 17:36 hydrochlorothiazide AdvReac Mild hypomagnese Verified 07/27/25 17:36 pop narcotics AdvReac Intermediate Nausea, Uncoded 07/27/25 17:36 vomiting Home Medications Medication Instructions Recorded Confirmed Type ketoconazole 2 % topical cream 1 applic topical DAILY #120 grams 11/14/23 07/27/25 Rx simethicone 80 mg chewable tablet 80 mg PO TID-QID PRN abdominal 07/03/24 07/27/25 Rx (Gas Relief (simethicone)) distention #40 tabs pantoprazole 20 mg tablet,delayed See Rx Instructions .Route 11/06/24 07/27/25 Rx release .COMPLEX #180 tabs duloxetine 60 mg capsule,delayed 60 mg PO DAILY #90 ca ps 12/12/24 07/27/25 Rx release pravastatin 40 mg tablet See Rx Instructions .Route 0 01/20/25 07/27/25 Rx .COMPLEX #90 tabs mirtazapine 30 mg tablet 30 mg PO QHS #90 tabs 07/27/25 Rx acetaminophen 650 mg 650 mg PO BID PRN 02/18/25 1 09/26/24 History tablet,extended release (Tylenol Arthritis Pain) ibuprofen 200 mg capsule 200 mg PO BID PRN 02/18/25 1 09/26/24 History celecoxib 200 mg capsule See Rx Instructions .Route 0 02/24/25 07/27/25 Rx .COMPLEX #90 caps potassium chloride 10 mEq See Rx Instructions .Route 0 02/24/25 07/27/25 Rx capsule,extended release .COMPLEX #90 caps cetirizine 10 mg tablet See Rx Instructions .Route 0 03/24/25 07/27/25 Rx .COMPLEX #90 tabs spironolactone 25 mg tablet See Rx Instructions .Route 03/24/25 07/27/25 Rx .COMPLEX #90 tabs magnesium oxide 400 mg (241.3 mg See Rx Instructions . Route 03/31/25 07/27/25 Rx magnesium) tablet .COMPLEX #90 tabs amlodipine 2.5 mg tablet See Rx Instructions .Route 0 04/03/25 07/27/25 Rx .COMPLEX #90 tabs ondansetron 4 mg disintegrating 4 mg PO DAILY PRN naus ea and 05/15/25 07/27/25 Rx tablet vomiting #90 tabs famotidine 20 mg tablet (Pepcid) 20 mg PO BID #14 tabs 05/19/25 07/27/25 Rx albuterol sulfate 90 mcg/actuation 2 puff inhalation Q 6H PRN 06/19/25 07/27/25 Rx aerosol inhaler (Ventolin HFA) shortness of breath or wheezing #8.5 grams pregabalin 225 mg capsule 225 mg PO BID #60 caps 07/1107/27/25 Rx Exam Narrative Exam Narrative: General: Patient appears older than stated age, sitting in bed with her head leaning forward and in moderate distress from her cough and difficulty breathing and talking. She is alert and oriented to person, place and time. HEENT: Normocephalic, eyes with pupils equal and reactive light symmetrically, extraocular movement intact and sclera anicteric. Oropharynx with dry mucosa and fair dentition. Neck: Supple without JVD. Back: Kyphotic without CVA tenderness. Decreased range of motion. Lungs: Bronchovesicular breath sounds diffusely with no focalizing inspiratory rales but coarse rhonchi with expiration and cough. Expiratory wheeze with slightly prolonged expiratory phase. Breast: Exam deferred. Heart: Regular rate and rhythm with no appreciable murmur or gallop. Distant heart sounds. Abdomen: Normal contour, soft to palpation with slight discomfort to deep palpation but no palpable masses or hepatosplenomegaly. No guarding or rebound. No focalizing tenderness. No signs positive in all quadrants. Genitalia/rectal: Exam deferred. Extremities: Without clubbing, cyanosis or grossly pitting edema. Fair cap refill. Skin: Pale, warm and dry. Neuro: Cranial nerves II through XII gross intact, no focal motor deficits or tremor. Psych: Flattened affect with depressed mood. Apologetic for her weak voice. No abnormal thought processes. Remote and recent memory appear to be grossly intact. Results Imaging Imaging Studies: Exam: CTA Chest With Contrast Exam date and time: 07/27/2025 7:05 PM Age: 75 years old Clinical indication: Other: Hypoxia COMPARISON: CT CHEST PE CTA 05/08/2025 4:26 PM FINDINGS: Pulmonary arteries: No acute pulmonary embolus. Aorta: Atheromatous calcifications are present within the visualized thoracic aorta. Lungs: There is mild centrilobular emphysema with an apical predominance. Mild atelectasis is present at the dependent lung bases. An 8 mm pulmonary nodule is present at the lateral left lung base which is unchanged from the CT dated 09/24/2022. No new suspicious pulmonary nodules. Mild patchy airspace opacities are present within the left lower lobe. Pleural spaces: Unremarkable. No pneumothorax. No pleural effusion. Heart: Heart is normal size. No pericardial effusion. Coronary arteries: There are scattered atheromatous coronary artery calcifications. Lymph nodes: No enlarged lymph nodes. Bones/joints: Unremarkable. No acute fracture. Soft tissues: Unremarkable. IMPRESSION: 1. No pulmonary embolus. 2. Mild left pulmonary radiopacities suspicious for aspiration/infection. Short interval follow-up is recommended to exclude underlying pulmonary pathology. Date of Exam: 09/15/20 Exam(s) a US:US echocardiogram APPROVED REPORT EXAM: Comprehensive 2D, Doppler, and color-flow Echocardiogram Indications: Amaurosis Other Information Study Quality: Adequate Conclusion Left Ventricle : The left ventricle is normal size. The left ventricular systolic function is normal. The left ventricular ejection fraction is within the normal range. There is normal left ventricular wall thickness. There is normal LV segmental wall motion. The left ventricular diastolic function is normal. LVEF is 60-65%. Right Ventricle : The right ventricle is normal size. The right ventricular systolic function is normal. The RVSP is 21.5 mmHg. Atria : The left atrium size is normal. The right atrium size is normal. Valves: There are no hemodynamically significant valvular lesions. Great Vessels : The aortic root is normal in size. The ascending aorta is normal in size. Aortic arch is not well visualized. IVC is normal in size and collapses >50% with inspiration. Please see remainder of study for further details. Labs 07/28/25 06:04 07/28/25 06:04 Labs: Laboratory Results - last 24 hr 07/27/25 07/27/25 07/27/25 16:00 17:40 18:55 WBC 11.87 H RBC 3.68 L Hgb 10.2 L Hct 32.0 L MCV 87 MCH 27.7 MCHC 31.9 L RDW 14.4 Plt Count 163 MPV 10.8 Immature Gran % 0.4 Neutrophils % 84.7 Lymphocytes % 8.8 Monocytes % 5.1 Eosinophils % 0.8 Basophils % 0.2 Nucleated RBC % 0.0 Absolute Neutrophils 10.05 H Absolute Lymphocytes 1.04 L Absolute Monocytes 0.61 Absolute Eosinophils 0.09 Absolute Basophils 0.02 VBG pH 7.42 H VBG pCO2 40 L VBG pO2 39 VBG HCO3 26 VBG Total CO2 24 VBG O2 Saturation 74 VBG Base Excess 1 VBG Lactate 1.1 Sodium 135 L Potassium 4.5 Chloride 99 Carbon Dioxide 24.9 Anion Gap 11.1 H BUN 15 Creatinine 0.8 Est GFR (CKD-EPI 2020) 76.79 Glucose 103 Calcium 9.1 Total Bilirubin 0.7 AST 27 ALT 22 Alkaline Phosphatase 134 H Troponin I 5 NT-Pro-B Natriuret Pep 1687 H Total Protein 7.4 Albumin 3.9 Urine Color Yellow Urine Clarity Clear Urine pH 6.5 Ur Specific [place] 1.020 Urine Protein 100 H Urine Ketones 15 H Urine Blood Trace-lysed H Urine Nitrite Negative Urine Bilirubin Negative Urine Urobilinogen 0.2 Ur Leukocyte Esterase Negative Urine RBC 0-2 Urine WBC Negative Ur Epithelial Cells Negative Urine Crystals Negative Urine Bacteria Negative Urine Mucus Trace Ur Culture Indicated? No Urine Glucose Negative COVID-19 Source Cancelled SARS-CoV-2 (PCR) Cancelled Influenza Type A (PCR) Cancelled Influenza Type B (PCR) Cancelled RSV (PCR) Cancelled 07/27/25 19:20 WBC RBC Hgb Hct MCV MCH MCHC RDW Plt Count MPV Immature Gran % Neutrophils % Lymphocytes % Monocytes % Eosinophils % Basophils % Nucleated RBC % Absolute Neutrophils Absolute Lymphocytes Absolute Monocytes Absolute Eosinophils Absolute Basophils VBG pH VBG pCO2 VBG pO2 VBG HCO3 VBG Total CO2 VBG O2 Saturation VBG Base Excess VBG Lactate Sodium Potassium Chloride Carbon Dioxide Anion Gap BUN Creatinine Est GFR (CKD-EPI 2020) Glucose Calcium Total Bilirubin AST ALT Alkaline Phosphatase Troponin I 6 NT-Pro-B Natriuret Pep Total Protein Albumin Urine Color Urine Clarity Urine pH Ur Specific [place] Urine Protein Urine Ketones Urine Blood Urine Nitrite Urine Bilirubin Urine Urobilinogen Ur Leukocyte Esterase Urine RBC Urine WBC Ur Epithelial Cells Urine Crystals Urine Bacteria Urine Mucus Ur Culture Indicated? Urine Glucose COVID-19 Source SARS-CoV-2 (PCR) Influenza Type A (PCR) Influenza Type B (PCR) RSV (PCR) Last Vital Signs Temp 37.4 C 07/27/25 17:34 Pulse 96 H 07/27/25 18:12 Resp 18 07/27/25 18:12 BP 186/80 H 07/27/25 17:34 Pulse Ox 93 07/27/25 18:00 Time Spent Time spent with Patient: >75 minutes Time was spent: preparing to see the patient(eg.review tests), obtaining and/or reviewing separately otained hiistory, ordering medications,tests, procedures, indepentently interpreting results, counseling the patient and care coordination
--- NOTE | 2025-07-27 19:56 | DI.VRAD_ITS ---
PROCEDURE INFORMATION: Exam: CTA Chest With Contrast Exam date and time: 07/27/2025 7:05 PM Age: 75 years old Clinical indication: Other: Hypoxia TECHNIQUE: Imaging protocol: Computed tomographic angiography of the chest with contrast. Exam focused on the arteries. 3D rendering (Not supervised by radiologist): MIP and/or 3D reconstructed images were created by the technologist. COMPARISON: CT CHEST PE CTA 05/08/2025 4:26 PM FINDINGS: Pulmonary arteries: No acute pulmonary embolus. Aorta: Atheromatous calcifications are present within the visualized thoracic aorta. Lungs: There is mild centrilobular emphysema with an apical predominance. Mild atelectasis is present at the dependent lung bases. An 8 mm pulmonary nodule is present at the lateral left lung base which is unchanged from the CT dated 09/24/2022. No new suspicious pulmonary nodules. Mild patchy airspace opacities are present within the left lower lobe. Pleural spaces: Unremarkable. No pneumothorax. No pleural effusion. Heart: Heart is normal size. No pericardial effusion. Coronary arteries: There are scattered atheromatous coronary artery calcifications. Lymph nodes: No enlarged lymph nodes. Bones/joints: Unremarkable. No acute fracture. Soft tissues: Unremarkable. IMPRESSION: 1. No pulmonary embolus. 2. Mild left pulmonary radiopacities suspicious for aspiration/infection. Short interval follow-up is recommended to exclude underlying pulmonary pathology. Dictated and Authenticated by: Mireille Valero MD. Orderin Kanchan Jensen MD
[2025-07-27] MEDS: cefTRIAXone 1 GM/50 ML BAG IVPB (23:49)
[2025-07-27] MEDS: Simethicone 80 MG CHEW PO (23:52)
[2025-07-27] MEDS: Mirtazapine 15 MG TAB 30 MG PO (23:52)
[2025-07-28] VITALS (10 sets, daily range): BP systolic 119–131; BP diastolic 51–77; PULSE 75–101; RESP 14–18; TEMP 36.6–37.2; O2SAT 90–98
[2025-07-28 00:10] LABS: TSH (W/Ref FT4) 6.51 uIU/mL (0.36-3.74)
[2025-07-28] MEDS: DOXYCYCLINE 100 MG in Normal Saline 100 ML IVPB ×3 (00:31→22:30)
--- NOTE | 2025-07-28 01:47 | W.PC.ACHO ---
Registration Status: ADM IN Primary Language: Preferred Language: Danish ED Information & Data Chief Complaint RespSymp 07/27/25 18:01 Triage Note Patient here with a deep 07/27/25 17:34 cough for approx one week. Cough is productive with white thick phlegm. Has also had some chills. Had apap and ibuprofen at approx 1000 am. Medical / Surgical History (Last Reviewed 07/27/25 @ 19:58 by Henry Vilchis) Abnormal weight loss Acute cystitis Acute UTI Acute UTI Adhesive capsulitis of left shoulder Anemia CHF exacerbation Delayed gastric emptying Hx of bacterial pneumonia Hyperlipidemia Leg edema Neuropathy Osteopenia (12/14/11) Pneumonia Sessile colonic polyp (03/14/18) Smoker Spinal stenosis Unintentional weight loss Urothelial carcinoma of bladder (~2016) Weakness (Last Reviewed 07/27/25 @ 19:58 by Henry Vilchis) Anterior Fusion Cervical Spine C3-C5 (07/31/16) Arthroplasty of knee Breast, Lumpectomy Cervical spondylosis Colonoscopy - MAC (03/12/18) H/O cystoscopy (09/06/18) H/O laminectomy (~06/2021) Hemiarthroplasty (09/07/15) History of hemiarthroplasty of left shoulder Repair of umbilical hernia Rotator Cuff Repair Status post shoulder hemiarthroplasty Tenotomy and debridement tendon L shoulder (10/25/17) Most Recent Vital Signs Temperature 37.1 C 07/27/25 22:50 Temperature Source Temporal Artery Scan 07/27/25 22:50 Pulse 98 H 07/27/25 22:50 Pulse Rhythm Regular 07/27/25 22:40 Respiratory Rate 18 07/27/25 22:50 Respiratory Effort Normal 07/27/25 22:40 Respiratory Depth Normal 07/27/25 22:40 Respiratory Pattern Normal 07/27/25 22:40 Blood Pressure 166/66 H 07/27/25 22:50 Blood Pressure Mean 99 07/27/25 22:50 Blood Pressure Position Sitting 07/27/25 17:34 Pulse Oximetry 90 L 07/28/25 01:06 Oxygen Delivery Method Room Air 07/28/25 01:06 Oxygen Flow Rate 0 07/28/25 01:06 Pain Level 8 07/28/25 01:07 Comment applied 1 L NC and continuous SpO2 monitor to ensure sat >92% 07/27/25 22:50 Allergies ciprofloxacin Allergy (Verified 07/27/25 17:36) Other (See Comment) doesn't know codeine Adverse Reaction (Intermediate, Verified 07/27/25 17:36) Nausea nitrofurantoin Adverse Reaction (Intermediate, Verified 07/27/25 17:36) bloating, weakness oxycodone Adverse Reaction (Intermediate, Verified 07/27/25 17:36) GI issues hydrochlorothiazide Adverse Reaction (Mild, Verified 07/27/25 17:36) hypomagnesemia narcotics Adverse Reaction (Intermediate, Uncoded 07/27/25 17:36) Nausea, vomiting pt stated this is not true, some don't bother. Precautions Isolation Fall precaution 07/27/25 17:37 Active Medications Generic Name Dose Route Start Last Admin Trade Name Freq PRN Reason Stop Dose Admin Doxycycline Hyclate 100 mg/ 100 mls @ 100 mls/hr 07/28/25 00:00 07/28/25 01:41 Sodium Chloride IVPB Infused Q12H FARZANA Infusion Mirtazapine 30 mg 07/27/25 23:04 07/27/25 23:52 Mirtazapine 15 Mg Tab PO 30 mg HS FARZANA Administration Simethicone 80 mg 07/27/25 22:58 07/27/25 23:52 Simethicone 80 Mg Chew PO 80 mg PC & HS FARZANA Administration Sodium Chloride 50 ml 07/27/25 19:30 07/27/25 19:17 Normal Saline - Diluent 50 Ml Vial IJ 50 ml DIRECTED FARZANA Administration IV IV Catheter Type [Left Wrist] Peripheral IV IV Catheter Gauge [Left Wrist] 20 Diet Orders Category Date Time Status Heart Healthy Eating [DIET] Nutrition 07/28/25 Breakfast Active Diagnostics 07/28/25 07/27/25 07/27/25 Range/Units 05:35 21:48 19:20 WBC Pending (4.4-10.8) 10^3/uL RBC Pending (3.93-5.22) 10^6/uL Hgb Pending (11.2-15.7) g/dL Hct Pending (36.0-46.0) % MCV Pending (80-95) fL MCH Pending (27.0-33.0) pg MCHC Pending (32.0-36.0) % RDW Pending (11.7-14.6) % Plt Count Pending (130-400) 10^3/uL MPV Pending (8.0-11.0) fL Immature Gran % % Neutrophils % % Lymphocytes % % Monocytes % % Eosinophils % % Basophils % % Nucleated RBC % (0.0-0.3) % Absolute Neutrophils (1.2-6.7) 10^3/uL Absolute Lymphocytes (1.2-3.4) 10^3/uL Absolute Monocytes (0.1-0.8) 10^3/uL Absolute Eosinophils (0.0-0.7) 10^3/uL Absolute Basophils (0.0-0.2) 10^3/uL VBG pH (7.31-7.41) VBG pCO2 (41-51) mmHg VBG pO2 mmHg VBG HCO3 (23-28) mmol/L VBG Total CO2 (24-29) mmol/L VBG O2 Saturation % VBG Base Excess (-2-3) mmol/L VBG Lactate (<or=2.0) mmol/L Sodium Pending (136-145) mmol/L Potassium Pending (3.5-5.1) mmol/L Chloride Pending (98-107) mmol/L Carbon Dioxide Pending (21.0-32.0) mmol/L Anion Gap Pending (3-11) mmol/L BUN Pending (7-18) mg/dL Creatinine Pending (0.55-1.02) mg/dL Est GFR (CKD-EPI 2020) Pending (mL/min/1.73m2) Glucose Pending (74-106) mg/dL Calcium Pending (8.5-10.1) mg/dL Magnesium Pending Total Bilirubin Pending (0.2-1.0) mg/dL AST Pending (15-37) U/L ALT Pending (14-59) U/L Alkaline Phosphatase Pending (46-116) U/L Troponin I 6 (<or=51) ng/L NT-Pro-B Natriuret Pep (<300) pg/mL Total Protein Pending (6.4-8.2) g/dL Albumin Pending (3.4-5.0) g/dL TSH 6.51 H (0.36-3.74) uIU/mL Free T4 1.15 (0.76-1.46) ng/dL Urine Color (Yellow) Urine Clarity (Clear) Urine pH (5-8) Ur Specific [place] (1.005-1.025) Urine Protein (Neg-Trace) mg/dL Urine Ketones (Negative) mg/dL Urine Blood (Negative) Urine Nitrite (Negative) Urine Bilirubin (Negative) Urine Urobilinogen (Up to 0.2) mg/dL Ur Leukocyte Esterase (Negative) Urine RBC (0-2) HPF Urine WBC (0-5) HPF Ur Epithelial Cells (Negative) HPF Urine Crystals (Negative) HPF Urine Bacteria (Negative) HPF Urine Mucus (Negative) Ur Culture Indicated? Urine Glucose (Negative) mg/dL COVID-19 Source Pending SARS-CoV-2 (PCR) Pending Influenza Type A (PCR) Pending Influenza Type B (PCR) Pending RSV (PCR) Pending 07/27/25 07/27/25 07/27/25 Range/Units 18:55 17:40 16:00 WBC 11.87 H (4.4-10.8) 10^3/uL RBC 3.68 L (3.93-5.22) 10^6/uL Hgb 10.2 L (11.2-15.7) g/dL Hct 32.0 L (36.0-46.0) % MCV 87 (80-95) fL MCH 27.7 (27.0-33.0) pg MCHC 31.9 L (32.0-36.0) % RDW 14.4 (11.7-14.6) % Plt Count 163 (130-400) 10^3/uL MPV 10.8 (8.0-11.0) fL Immature Gran % 0.4 % Neutrophils % 84.7 % Lymphocytes % 8.8 % Monocytes % 5.1 % Eosinophils % 0.8 % Basophils % 0.2 % Nucleated RBC % 0.0 (0.0-0.3) % Absolute Neutrophils 10.05 H (1.2-6.7) 10^3/uL Absolute Lymphocytes 1.04 L (1.2-3.4) 10^3/uL Absolute Monocytes 0.61 (0.1-0.8) 10^3/uL Absolute Eosinophils 0.09 (0.0-0.7) 10^3/uL Absolute Basophils 0.02 (0.0-0.2) 10^3/uL VBG pH 7.42 H (7.31-7.41) VBG pCO2 40 L (41-51) mmHg VBG pO2 39 mmHg VBG HCO3 26 (23-28) mmol/L VBG Total CO2 24 (24-29) mmol/L VBG O2 Saturation 74 % VBG Base Excess 1 (-2-3) mmol/L VBG Lactate 1.1 (<or=2.0) mmol/L Sodium 135 L (136-145) mmol/L Potassium 4.5 (3.5-5.1) mmol/L Chloride 99 (98-107) mmol/L Carbon Dioxide 24.9 (21.0-32.0) mmol/L Anion Gap 11.1 H (3-11) mmol/L BUN 15 (7-18) mg/dL Creatinine 0.8 (0.55-1.02) mg/dL Est GFR (CKD-EPI 2020) 76.79 (mL/min/1.73m2) Glucose 103 (74-106) mg/dL Calcium 9.1 (8.5-10.1) mg/dL Magnesium Total Bilirubin 0.7 (0.2-1.0) mg/dL AST 27 (15-37) U/L ALT 22 (14-59) U/L Alkaline Phosphatase 134 H (46-116) U/L Troponin I 5 (<or=51) ng/L NT-Pro-B Natriuret Pep 1687 H (<300) pg/mL Total Protein 7.4 (6.4-8.2) g/dL Albumin 3.9 (3.4-5.0) g/dL TSH (0.36-3.74) uIU/mL Free T4 (0.76-1.46) ng/dL Urine Color Yellow (Yellow) Urine Clarity Clear (Clear) Urine pH 6.5 (5-8) Ur Specific [place] 1.020 (1.005-1.025) Urine Protein 100 H (Neg-Trace) mg/dL Urine Ketones 15 H (Negative) mg/dL Urine Blood Trace-lysed H (Negative) Urine Nitrite Negative (Negative) Urine Bilirubin Negative (Negative) Urine Urobilinogen 0.2 (Up to 0.2) mg/dL Ur Leukocyte Esterase Negative (Negative) Urine RBC 0-2 (0-2) HPF Urine WBC Negative (0-5) HPF Ur Epithelial Cells Negative (Negative) HPF Urine Crystals Negative (Negative) HPF Urine Bacteria Negative (Negative) HPF Urine Mucus Trace (Negative) Ur Culture Indicated? No Urine Glucose Negative (Negative) mg/dL COVID-19 Source Cancelled SARS-CoV-2 (PCR) Cancelled Influenza Type A (PCR) Cancelled Influenza Type B (PCR) Cancelled RSV (PCR) Cancelled Intake and Output - 24 Hour Total 07/27/25 17:30 thru 07/28/25 01:41 Intake Total 420 Balance 420 Weight 47.355 kg Intake: IV 420 Oral 0 Other: Urine Color Yellow Urine Appearance Clear Urine Odor Normal Falls Risk Assessment History of Falls Previous History 07/27/25 22:40 Contributing Factors Impairments 07/27/25 22:40 Ambulatory Aids Uses ambulatory device 07/27/25 22:40 Tubes/Lines W/no contributing factors 07/27/25 22:40 Gait Evaluation W/no contributing factors 07/27/25 22:40 Cognition No cognitive impairment 07/27/25 22:40 Fall Total Score 53 07/27/25 22:40 Level of Risk High Risk 07/27/25 22:40 Problems (Last Reviewed 07/27/25 @ 19:58 by Henry Vilchis) Acute hypoxic respiratory failure (Acute) Hypoxia (Acute) Notes 07/27/25 19:09 Nursing Notes by Regino Wheat Walking oxygen trial per MD, PT oxygen dropped to 87 percent took about a minute to recover back to 90 percent. PT did not complain of SOB. Nursing Note: Initialized on 07/27/25 19:09 - END OF NOTE 07/27/25 18:41 Respiratory by Dali Brown 07/27/2025 Without prompting patient stated to this RT that she is not suicidal just tired. MD and RN aware of statement. Initialized on 07/27/25 18:41 - END OF NOTE 07/27/25 18:05 Nursing Notes by Aislinn Herron Nursing Note: Pt refused flu/vid swab Initialized on 07/27/25 18:05 - END OF NOTE v v v v v v v v v Sending and/or Receiving Nurses: Please use comment section below to note any information pertinent to the patient hand-off not included above. Information / Comments: Paged 21:53, called ED 22:19, returned call 22:23, pt arrived to floor 22:34. Pt has hx of CHF, has experienced SOB and deeper cough than baseline for 1-2 weeks. Crackles at bilateral bases. Given Duo-Neb, azithromycin, and solumedrol in ED. Sats in 90s on RA, dropping to high 80s with ambulatory pulse ox trial. Pt accepted for observation to maintain appropriate O2 sat. No O2 available at home. Pt refuses Fluvid test. Report received from: DOLORES Amaro RN
[2025-07-28 07:22] LABS: HCT 32.3 % (36.0-46.0); HGB 10.4 g/dL (11.2-15.7); MCH 28.1 pg (27.0-33.0); MCHC 32.2 % (32.0-36.0); MCV 87 fL (80-95); MPV 11.6 fL (8.0-11.0); Platelet Count 165 10^3/uL (130-400); RBC 3.70 10^6/uL (3.93-5.22); RDW 14.5 % (11.7-14.6); RDW-SD 46.1 fL; WBC 3.46 10^3/uL (4.4-10.8)
[2025-07-28 07:39] LABS: ALT 16 U/L (14-59); AST 20 U/L (15-37); Albumin 3.6 g/dL (3.4-5.0); Alkaline Phosphatase 120 U/L (46-116); Anion Gap 9.4 mmol/L (3-11); BUN 18 mg/dL (7-18); Bilirubin, Total 0.5 mg/dL (0.2-1.0); CO2 25.6 mmol/L (21.0-32.0); Calcium 9.0 mg/dL (8.5-10.1); Chloride 101 mmol/L (98-107); Glucose 123 mg/dL (74-106); Magnesium 1.7 mg/dL (1.8-2.4); Potassium 4.5 mmol/L (3.5-5.1); Sodium 136 mmol/L (136-145); Total Protein 7.1 g/dL (6.4-8.2)
--- NOTE | 2025-07-28 09:20 | PDOC.CMIN ---
Date of service: 07/28/25 Time of Service: 09:20 Care Management Initial Assmt Initial Assessment Reason for Hospitalization: acute hypoxic respiratory failure Functional Status/Living Situation Patient Presentation: Belén presented to the ED last evening with c/o progressive weakness, inability to care for herself and respiratory symptoms over the last week. She was found to have pneumonia with a COPD exacerbation and was admitted for steroids, neb treatments and IV antibiotics. Belén was lying in bed when CM met with her today. She was pleasant, but stated that she was not feeling well at all. She complained of nausea. She stated that she hadn't eaten all day. Belén has an [employer] caregiver a couple of days/week. Belén no longer drives. She stated that she has a friend named Scot, who helps her with most of her errands and takes her to appointments. Her neighbor, Ramiro, also helps her out. Belén receives meals on wheels. Belén has 2 cats and a dog whom she enjoys. 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 - [employer] Supports: [employer] caregiver Many good friends and neighbors Employment Status: Retired Instrumental Activities of Daily Living (ADLs): Requires support Medications Medication Management: No Issues/Barriers identified Physical Functioning/Mobility Assistive Device: walker - but doesn't use much Advance Directives Advance Directives: Do you have an Advance Directive: N 06/14/22, 09:01 AD On File at [facility]: N 06/14/22, 09:01 Date Asked 07/27/25 07/27/25, 17:32 AD Date Reviewed COLST On File at [facility] COLST Date Scanned Code Status Resuscitation Status Full Code Insurance Coverage/Financial Issues Insurance: Medicare Part A & B Care Team Visit Care Team Role Provider Type Aubrie Hanley NP MD [facility] STAFF PHYSICIAN Chanel Nelson NP Primary Care Provider NURSE PRACTITIONER InPatient Michael Avila Other Providers OTHER Mikey Hemphill MD Emergency Provider [facility] STAFF PHYSICIAN Henry Vilchis Admit Provider NON-[facility] STAFF PHYSICIAN Attending Provider Discharge Potential Discharge Needs: PCP F/U Appt Anticipated Barriers to Discharge: None Identified Patient/Family Education Needs: Review discharge instructions, discuss Ask Me Three Transportation: Private vehicle Plan: PT is recommending STR for Belén. This will be discussed with her tomorrow by CM. Regardless, Belén will follow up with her community providers and plan of care. Transportation will be determined by her disposition. CM will continue to follow. Social Determinants of Health Screening Social Determinants of health last assessed in clinic: 07/27/25 Will the Patient Participate in the Screening?: Declined to provide Do you worry about having a steady place to live?: no Problems where you live: no known problems In the past 12 months, have you had to go without electric, gas, oil or water in your home?: no Has lack of transportation kept you from medical appointments or from doing things needed for daily living?: no Has anyone in your life made you feel unsafe or unsupported?: no How hard is it for you to pay for the very basics like food, housing, medical care, and heating? Would you say it is:: Not hard at all Do you want help finding or keeping work or a job?: I do not need or want help If for any reason you need help with day-to-day activities such as bathing, preparing meals, shopping, managing finances, etc., do you get the help you need?: I don’t need any help How often do you feel lonely or isolated from those around you?: Never Do you speak a language other than Moh[place] at home?: No Does the patient want assistance with any of the above?: No PFSH All Active Problems (Updated 07/28/25 @ 07:48 by Henry Vilchis) Acute hypoxic respiratory failure (Acute) Hypoxia (Acute) Bilateral shoulder pain (Acute) Chronic nausea (Acute) Ondansetron effective Multifocal pneumonia (Acute) Acute exacerbation of chronic obstructive pulmonary disease (COPD) (Acute) Pulmonary nodules/lesions, multiple (Acute ~04/2025) History of bladder cancer (Chronic) Superficial Bladder CA, yearly cysto for surveillance. Dr. Wiggins Advanced care planning/counseling discussion (Acute) Palliative care encounter (Acute) Weight loss (Acute) PVD (peripheral vascular disease) (Chronic) Pain in both feet (Acute) Onychomycosis (Acute) High risk for fracture due to osteoporosis by DEXA scan (Acute ~03/2023) RX Fosamax Poor manual dexterity (Acute) Lung nodule seen on imaging study (Acute ~10/2022) Annual LDCT Impaired gait and mobility (Acute) Chronic pain (Chronic) Due to OA shoulders, knees, Spinal stenosis. 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; cervical spondylosis; operated 08/03/16 Cervical myelopathy (Chronic) Spinal stenosis, lumbar region without neurogenic claudication (Acute 12/14/11) Osteoarthritis of spine with radiculopathy, cervical region (Acute 09/05/11) Sacroiliac joint dysfunction of right side (Acute) Spinal stenosis of lumbar region with radiculopathy (Acute) 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 Dr Velazco, [facility] [place] Neu[facility] Essential hypertension (Chronic 02/26/13) [place] cardiac risk >20% in next 10 years (Chronic) 2020: 32% Magnesium-losing nephropathy (Chronic) very mild; tx spironolactone GERD (gastroesophageal reflux disease) (Chronic) Depression (Chronic 07/01/14) Medical marijuana use (Chronic) Arthritis of left glenohumeral joint (Chronic ~07/01/14) Medical History Abnormal weight loss Urothelial carcinoma of bladder (~2016) [facility] Leg edema Osteopenia (12/14/11) Osteoporosis wrist, osteopenia hip, normal bone density of spine 2017 osteopenia 2011 CHF exacerbation Acute cystitis Pneumonia Acute UTI Weakness Acute UTI Anemia Smoker Unintentional weight loss Delayed gastric emptying mild Hyperlipidemia Neuropathy Sessile colonic polyp (03/14/18) Adhesive capsulitis of left shoulder Injected 12/11/2018 Spinal stenosis Hx of bacterial pneumonia Surgical History H/O laminectomy (~06/2021) APD-L3-L4 laminectomy, medial fa for decompression of stenosis, lateral disectomy [id number] Cervical spondylosis 11/03/20 C5-[address] Everett Cardoza 11/04/20 D/C'd home Status post shoulder hemiarthroplasty History of hemiarthroplasty of left shoulder 09/07/2015 H/O cystoscopy (09/06/18) w/transurethral resection of bladder tumors-Dr Wiggins Tenotomy and debridement tendon L shoulder (10/25/17) Rotator Cuff Repair Repair of umbilical hernia Hemiarthroplasty (09/07/15) L shoulder Dr Luz Colonoscopy - MAC (03/12/18) Colon,transverse,polyp,biopsy - fragment of sessile serrated adenoma. (Dr Neely) Breast, Lumpectomy Arthroplasty of knee Per patient she has not had a TOTAL KNEE Anterior Fusion Cervical Spine C3-C5 (07/31/16) Jul 2016, [facility] [place] Dr. Martinez Family History Father Essential hypertension Glaucoma Alzheimer's dementia Social History Smoking/Tobacco Use Status: Former Tobacco Use Quit Date: 02/10/25 Smoking risk assessment performed?: Yes Alcohol Intake: former Drug use: Daily Substance use type: marijuana Details: marijuana: uses qd Last used Monday09/30/23 Household members: none Housing: house Number of Children: 0 Pets and animals: Yes Pets and animals: cat(s) and dog(s) Current gender identity: female What type of physical activity do you participate in: none and other Details: PT 2 xweek Frequency: 1-2 times per week Seatbelt use: always Drive 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
[2025-07-28] MEDS: Albuterol/Ipratropium 3 ML UPD VIAL UPD ×2 (09:22→14:58)
[2025-07-28 09:26] LABS: COVID-19 PCR Negative (Negative); RSV PCR Negative (Negative)
[2025-07-28 11:41] LABS: Glucose Negative (Negative)
[2025-07-28 12:01] LABS: C & S Indicated? No; RBC Negative HPF (0-2); WBC Negative HPF (0-5)
--- NOTE | 2025-07-28 12:46 | PT.INIE ---
PT Notes Visit Reasons: Hypoxic Respiratory Failure Physical Therapy Inpatient Initial Evaluation Date: 07/28/2025 Referring Doctor: Henry Vilchis MD PT Orders: PT CONSULT: Eval and Treat Precautions: Fall. Standard. Activity as tolerated. Patient Profile/Admitting Diagnosis: pt is a 75-year-old Female admitted for COPD, and Pneumonia. In ED pt presented with weakness, SOB requiring supplemental oxygen. CxR and Chest CT scan showed lower lobe infiltrate. Pt admitted to Med-Surg unit for medical management including IV ABx and IV Solumedrol, nebs and monitoring via telemetry. PT Consult placed. PMHX: Abdominal pain (Acute) Multifocal pneumonia (Acute) Acute hypoxemic respiratory failure (Acute) Hypomagnesemia (Acute) History of bladder cancer (Acute) Superficial Bladder CA, yearly cysto for surveillance. Dr. Montañodvanced care planning/counseling discussion (Acute) Palliative care encounter (Acute) Weight loss (Acute) PVD (peripheral vascular disease) (Chronic) Pain in both feet (Acute) Onychomycosis (Acute) High risk for fracture due to osteoporosis by DEXA scan (Acute ~03/2023) RX FosamaxPoor manual dexterity (Acute) Lung nodule seen on imaging study (Acute ~10/2022) Annual LDCTImpaired gait and mobility (Acute) Chronic pain (Chronic) Due to OA shoulders, knees, Spinal stenosis. 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; cervical spondylosis; operated 08/03/16 Cervical myelopathy (Chronic) Spinal stenosis, lumbar region without neurogenic claudication (Acute 12/14/11) Osteoarthritis of spine with radiculopathy, cervical region (Acute 09/05/11) Sacroiliac joint dysfunction of right side (Acute) Spinal stenosis of lumbar region with radiculopathy (Acute) RLE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 [place] [facility] [place]ential hypertension (Acute 02/26/13) [place] cardiac risk >20% in next 10 years (Chronic) 2020: 32%Magnesium-losing nephropathy (Chronic) very mild; tx spironolactoneGERD (gastroesophageal reflux disease) (Chronic) Depression (Chronic 07/01/14) Medical marijuana use (Chronic) Arthritis of left glenohumeral joint (Chronic ~07/01/14) Medical History Abnormal weight loss Urothelial carcinoma of bladder (~2016) [facility] Acute cystitis Pneumonia Acute UTI Weakness Acute UTI Anemia Smoker Unintentional weight loss Leg edema Delayed gastric emptying mildHyperlipidemia Neuropathy Sessile colonic polyp (03/14/18) Osteopenia (12/14/11) Osteoporosis wrist, osteopenia hip, normal bone density of spine 2016 osteopenia 2011 Adhesive capsulitis of left shoulder Injected 12/11/2018Spinal stenosis Hx of bacterial pneumonia Surgical History H/O laminectomy (~06/2021) APD-L3-L4 laminectomy, medial fa for decompression of stenosis, lateral disectomy [id number] spondylosis 11/03/20 C5-[address] Everett Cardoza 11/04/20 D/C'd homeStatus post shoulder hemiarthroplasty History of hemiarthroplasty of left shoulder 09/07/2015H/O cystoscopy (09/06/18) w/transurethral resection of bladder tumors-Dr MejiasonTenotomy and debridement tendon L shoulder (10/25/17) Rotator Cuff Repair Repair of umbilical hernia Hemiarthroplasty (09/07/15) L shoulder Dr LuzColonoscopy - MAC (03/12/18) Colon,transverse,polyp,biopsy - fragment of sessile serrated adenoma. (Dr Neely)Breast, Lumpectomy Arthroplasty of knee Per patient she has not had a TOTAL KNEEAnterior Fusion Cervical Spine C3-C5 (07/31/16) Jul [place] [facility] [place] Social History/Home Situation: Lives in a home alone, with 4-5 steps to enter and railings on both sides of steps. Pt has a caregiver stop by throughout the week to help with cooking, cleaning, and other ADL’s. Equipment Owned/DME: Walker Subjective: Patient is a 75-year-old female with 4-5 steps with a rail on both sides to enter her home. Pt has a walker at home, but rarely uses it. Pt has a caregiver that stops by a couple times a week to cook and clean. Pt doesn’t cook for herself, but instead receives meals on wheels. Pt reported not wanting to go back to a care facility, but agreed with the possibility of having to go to a SNF. Pt stated they were cold, when we removed the blankets from her to begin the session. Pt stated they needed to use the bathroom, this prompted PT to help pt to the bathroom Objective: General Observation: Pt laying in bed with multiple blankets on her. Pt mentions she was cold multiple times, and pt shivered when she with at EOB without many blankets on her. Pt had thin extremities and trunk. Pt unaware of soiled garment. Pt showed little initiation and needed multiple prompting. Mental Status: Alert and oriented x2 as to person, place. Able to pay attention, focus. Delayed response. Sometimes pt would answer question by repeating back what the PT asked. word finding deficits noted Pain: 0/10 in back yet she stated she had pain. Pt unable to utilize pain scale properly. no facial grimacing noted Vital Signs: Supine: BP: 127/81, SPO2: 96, HR: 83 Sitting EOB: BP: 113/65, SPO2: 91, HR: 85 ROM: Right Upper Extremity: Shoulder Flexion Limited, approximately 95 degrees. Shoulder abduction Limited, approximately 95 degrees. Elbow flexion WFL. Wrist flexion WFL. Functional opening and closing of hand WFL. Left Upper Extremity: Shoulder Flexion Limited, approximately 105 degrees. Shoulder abduction Limited, approximately 105 degrees. Elbow flexion WFL. Wrist flexion WFL. Functional opening and closing of hand WFL. Right Lower Extremity: Hip flexion WFL. Hip abduction WFL. Knee flexion WFL. Ankle dorsiflexion WFL. Ankle plantarflexion WFL. Left Lower Extremity: Hip flexion WFL. Hip abduction WFL. Knee flexion WFL. Ankle dorsiflexion WFL. Ankle plantarflexion WFL. Strength: Right Upper Extremity: Shoulder flexors 3-/5. Shoulder abductors 3-/5. Elbow flexors 3/5. Elbow extensors 3/5. Clinical Pharmacy Coordinator good. Left Upper Extremity: Shoulder flexors 3+/5. Shoulder abductors 3+/5. Elbow flexors 4-/5. Elbow extensors 4-/5. Clinical Pharmacy Coordinator good. Right Lower Extremity: Grossly 3+/5. Left Lower Extremity: Grossly 3+/5. Bed Mobility/Transfers: Rolling with verbal and tactile cues for safe/correct technique Supine to sit EOB with Min A of 1 with verbal and tactile cues for safe/correct technique Sit to supine with Min A of 1 for Left lower extremity with verbal and tactile cues for safe/correct technique Sit to stand with FWW with Min A of 1 tactile cues for safe/correct technique Stand to sit with FWW with Min A of 1 tactile cues for safe/correct technique Bed to toilet FWW with guard assist with tactile cues for safe/correct technique. Pt Gait: Instructed patient with level surface ambulation of 15 feet requiring FWW with Min A of 1 to the bathroom, and ambulated back to bed w/FWW with Min A of 1 for a total of 30 feet. Jaylin decreased. Step height decreased. Step length decreased. Posture: forward flexed thoracic spine, head down, posterior pelvic tilt Balance: Static Sitting: good Dynamic Sitting: good Static Standing: fair with FWW Dynamic Standing: fair with 1 UE support Special Tests: Mobility Limitations Standardized Measure [facility] AM-PAC 6 clicks Basic Mobility Inpatient Short Form: Raw Score: 15 CMS Score: 57.70% deficit Informed Consent/Education: Patient was instructed in purpose of PT consult and plan of care. Agreeable to proceed with established PT POC to achieve personal goals. Assessment: Pt tolerated activity for this session. Pt needed assistance to get out of bed. Pt was contact guard assist with ambulation. However, patient showed unpredictability with ambulation from cognitively having difficulties with orientation, and from lower extremity weakness. Pt Lack of UE ROM results in her difficulties to perform ADL’s. Pt lack of ROM, cognitive difficulties, and lack of initiation pt fails to thrive and would benefit from skilled physical therapy. Patient presents with clinical signs and symptoms consistent with current/admitting diagnoses that have resulted to mobility limitations, gait instability, generalized weakness, and overall, ADL decline as demonstrated by the following impairment level findings: 1. Decreased strength to upper and lower extremities, specifically the shoulder, quads, back extensors. 2. Impaired activity tolerance 3. Limitation of joint range of motion in upper extremity. 4. Difficulty initiating task 5. Decline balance reactions in standing Impairments are contributing to the following functional limitations: 1. Decline in bed mobility skills 2. Decline in transfer skills 3. Difficulty with ambulation without assistive device and physical assistance 4. Increased completion time for mobility ADL performance 5. Increased risk for falls 6. Difficulty with managing steps alone safely Patient is assessed as a moderate complexity based on the following: History: 75-year-old female with past medical history as indicated above Examination: Demonstrable impairment in strength, and mobility level with underlying impairments and functional limitations as exhibited above as well as deficit score of 57.70% utilizing the [facility] Mobility Inpatient Short Form Presentation: Evolving, Pt alert oriented x2 person & place. Pt had delay responses, and sometimes would repeat back what she’s being asked. For example, when asked on a scale of 0-10 what is your pain? Pt would answer 0-10. Decision Making: Moderate complexity Goals: Goals X1 week 1. Supine-Sit supervision 2. Sit-Supine supervision 3. Sit-Stand supervision 4. Stand-Sit with supervision 5. Bed-Chair with supervision and device 6. Chair-Bed with supervision and device 7. supervision gait on level surface with use of FWW for at least 100 feet without report of weakness 8. Supervision stair negotiation while holding onto both rails for at least 5 steps without report of weakness 9. Independent with home exercise program 10. Good static and dynamic standing balance/tolerance Plan of Care/Treatment Plan: 1-2x/day, 7 days/week x 1 week. Plan of care has been reviewed with the STORE PERSON providing the service under Physical Therapy direction. Initiate Physical Therapy intervention for pain management as needed, strengthening, bed mobility, transfers, gait, stairs, balance training, and use of assistive device. DISCHARGE RECOMMENDATIONS: SNF versus LTC based on ability to participate and progress TREATMENT CODE/TIME: 66800, [id number]: 9:45-10:15 30 minutes total for 2 units Thank you for the opportunity to participate in the care of this patient. Written by Alberto Márquez DPTS Supervised by Yeimy Elliott PT [facility]
[2025-07-28] MEDS: Normal Saline Flush 10 ML SYR IVP ×2 (12:59→20:46)
[2025-07-28] MEDS: Simethicone 80 MG CHEW PO ×2 (17:46→20:45)
[2025-07-28] MEDS: Ondansetron O.D.T. 4 MG TABEF PO (17:46)
[2025-07-28] MEDS: Pantoprazole 20 MG TABCR PO (17:47)
--- NOTE | 2025-07-28 19:34 | W.PM.PROGNOT ---
Date of Service Date of service: 07/28/25 Time of Service: 19:34 Assessment and Plan Assessment and plan (1) Acute hypoxic respiratory failure: Status: Acute Assessment and plan: 1 week history of respiratory symptoms and appears to have a left lower lobe pneumonia at least and COPD exacerbation with hypoxic respiratory failure. She was given Solu-Medrol in the ED Prednisone daily Continue nebulizer treatments IV Rocephin with IV doxycycline for treatment of left lower lobe infiltrate. O2 supplementation PT to evaluate Echocardiogram EF 60-65% No WMA (2) Pneumonia: Start date: 07/27/25 Assessment and plan: continue IV Rocephin and doxycycline. Follow-up imaging as needed. (3) Acute exacerbation of chronic obstructive pulmonary disease (COPD): Start date: 07/27/25 Status: Acute Assessment and plan: Continue nebulizer treatments O2 supplementation as needed Prednisone (4) History of bladder cancer: Status: Chronic Assessment and plan: No mention of metastases patient does have a pulmonary nodule in the left lung which appears stable over the last several years. She is losing weight and becoming more debilitated and should review her CODE STATUS. (5) Depression: Status: Chronic Assessment and plan: Continue outpatient medical therapy. (6) Essential hypertension: Status: Chronic Assessment and plan: Continue outpatient medical therapy (7) Chronic pain: Status: Chronic Assessment and plan: Continue outpatient medical therapy on Lyrica and NSAIDs. Physical therapy eval recommends SNF v LTC Subjective Subjective Patient reports: no new complaints, tolerating liquids well, tolerating a regular diet, voiding w/o difficulty, bowel movement and afebrile; denies nausea or shortness of breath Interval history since last seen: Awake, alert, pleasant, conversant. Complains of feeling tired. Exam Const General: cooperative and no acute distress [facility] Mouth: mucous membranes dry Eyes Conjunctivae: normal conjunctivae Sclera: normal sclerae Neck Neck: trachea midline and supple Resp Effort & Inspection: able to speak in complete sentences and not labored Auscultation: no rales and no rhonchi Other: diminished BS right baase Cardio Jugular venous pressure: no JVD Rate: regular rate and not tachycardic Rhythm: regular rhythm GI Palpation: soft, not firm, no guarding, no masses, not rigid and tender in the epigastrum; with no rebound tenderness Skin General skin exam: no rashes or lesions noted Neuro General: patient alert, patient awake, patient oriented x3 and tone normal Extrem General: no calf tenderness and no edema Psych Appearance: grossly normal Mental Status: mental status grossly normal Speech and Movement: speech and movement normal Objective Last Vital Signs Temp 37.0 C 07/28/25 19:08 Pulse 77 07/28/25 19:08 Resp 16 07/28/25 19:08 BP 119/68 07/28/25 19:08 Pulse Ox 96 07/28/25 19:08 Laboratory Results - last 24 hr 07/27/25 07/28/25 07/28/25 19:20 06:04 08:30 WBC 3.46 L RBC 3.70 L Hgb 10.4 L Hct 32.3 L MCV 87 MCH 28.1 MCHC 32.2 RDW 14.5 Plt Count 165 MPV 11.6 H Sodium 136 Potassium 4.5 Chloride 101 Carbon Dioxide 25.6 Anion Gap 9.4 BUN 18 Creatinine 0.8 Est GFR (CKD-EPI 2020) 76.79 Glucose 123 H Calcium 9.0 Magnesium 1.7 L Total Bilirubin 0.5 AST 20 ALT 16 Alkaline Phosphatase 120 H Troponin I 6 Total Protein 7.1 Albumin 3.6 TSH 6.51 H Free T4 1.15 Urine Color Urine Clarity Urine pH Ur Specific [place] Urine Protein Urine Ketones Urine Blood Urine Nitrite Urine Bilirubin Urine Urobilinogen Ur Leukocyte Esterase Urine RBC Urine WBC Ur Epithelial Cells Urine Crystals Urine Bacteria Urine Casts Urine Mucus Ur Culture Indicated? Urine Glucose COVID-19 Source Nasopharynx SARS-CoV-2 (PCR) Negative Influenza Type A (PCR) Negative Influenza Type B (PCR) Negative RSV (PCR) Negative 07/28/25 10:30 WBC RBC Hgb Hct MCV MCH MCHC RDW Plt Count MPV Sodium Potassium Chloride Carbon Dioxide Anion Gap BUN Creatinine Est GFR (CKD-EPI 2020) Glucose Calcium Magnesium Total Bilirubin AST ALT Alkaline Phosphatase Troponin I Total Protein Albumin TSH Free T4 Urine Color Yellow Urine Clarity Clear Urine pH 6.0 Ur Specific [place] 1.015 Urine Protein 30 H Urine Ketones Trace H Urine Blood Negative Urine Nitrite Negative Urine Bilirubin Negative Urine Urobilinogen 0.2 Ur Leukocyte Esterase Negative Urine RBC Negative Urine WBC Negative Ur Epithelial Cells Negative Urine Crystals Negative Urine Bacteria Negative Urine Casts Negative Urine Mucus Negative Ur Culture Indicated? No Urine Glucose Negative COVID-19 Source SARS-CoV-2 (PCR) Influenza Type A (PCR) Influenza Type B (PCR) RSV (PCR) Time Spent with Patient Time Spent with Patient: 25-34 minutes Time was spent: preparing to see the patient(eg.review tests), ordering medications,tests, procedures, referring, communicating with other health critical care unit manager, indepentently interpreting results, counseling the patient and care coordination
[2025-07-28] MEDS: Mirtazapine 15 MG TAB 30 MG PO (20:45)
[2025-07-28] MEDS: Pregabalin 150 MG CAP PO (20:46)
[2025-07-28] MEDS: Pravastatin 20 MG TAB (23:35)
[2025-07-29] MEDS: cefTRIAXone 1 GM/50 ML BAG IVPB (01:05)
[2025-07-29 03:30] VITALS: BP 121/64; PULSE 73; RESP 18; TEMP 37.1; O2SAT 94
[2025-07-29 04:07] VITALS: O2SAT 94
[2025-07-29 07:32] LABS: HCT 31.5 % (36.0-46.0); HGB 10.2 g/dL (11.2-15.7); MCH 28.3 pg (27.0-33.0); MCHC 32.4 % (32.0-36.0); MCV 87 fL (80-95); MPV 11.5 fL (8.0-11.0); Platelet Count 154 10^3/uL (130-400); RBC 3.61 10^6/uL (3.93-5.22); RDW 14.6 % (11.7-14.6); RDW-SD 46.6 fL; WBC 7.91 10^3/uL (4.4-10.8)
[2025-07-29 07:39] VITALS: BP 109/67; PULSE 77; RESP 17; TEMP 37.3; O2SAT 94
[2025-07-29 08:00] LABS: ALT 15 U/L (14-59); AST 19 U/L (15-37); Albumin 3.3 g/dL (3.4-5.0); Alkaline Phosphatase 102 U/L (46-116); Anion Gap 11.0 mmol/L (3-11); BUN 34 mg/dL (7-18); Bilirubin, Total 0.5 mg/dL (0.2-1.0); CO2 25.0 mmol/L (21.0-32.0); Calcium 8.7 mg/dL (8.5-10.1); Chloride 104 mmol/L (98-107); Glucose 80 mg/dL (74-106); Magnesium 1.7 mg/dL (1.8-2.4); Potassium 3.8 mmol/L (3.5-5.1); Sodium 140 mmol/L (136-145); Total Protein 6.5 g/dL (6.4-8.2)
[2025-07-29] MEDS: Pregabalin 150 MG CAP PO (09:52)
[2025-07-29] MEDS: DULoxetine 30 MG CAP 60 MG PO (09:52)
[2025-07-29] MEDS: Famotidine 20 MG TAB PO (09:53)
[2025-07-29] MEDS: Magnesium Oxide 400 MG TAB PO (09:53)
[2025-07-29] MEDS: amLODIPine 2.5 MG TAB PO (09:53)
[2025-07-29] MEDS: predniSONE 20 MG TAB 40 MG PO (09:53)
[2025-07-29] MEDS: Cetirizine 10 MG TAB PO (09:53)
[2025-07-29] MEDS: Potassium Chloride 10 MEQ TABCR PO (09:53)
[2025-07-29] MEDS: Simethicone 80 MG CHEW PO (09:53)
[2025-07-29] MEDS: Celecoxib 200 MG CAP PO (09:53)
[2025-07-29] MEDS: Spironolactone 25 MG TAB PO (09:53)
[2025-07-29] MEDS: Enoxaparin 30 MG/0.3 ML SYR SC (09:54)
[2025-07-29] MEDS: Normal Saline Flush 10 ML SYR IVP ×3 (09:54→14:13)
[2025-07-29 10:00] VITALS: O2SAT 97
[2025-07-29 11:34] VITALS: BP 108/62; PULSE 76; RESP 16; TEMP 37.2; O2SAT 95
--- NOTE | 2025-07-29 12:16 | PT.INTREAT ---
PT Notes Visit Reasons: Hypoxic Respiratory Failure Inpatient Physical Therapy Treatment Note Date: 07/29/2025 PRECAUTIONS: Fall, standard SUBJECTIVE: Pt stated their abdominal pt wasn’t as bad compared to yesterday. Pt was more willing to get up and walk today compared to prior session. She wasn’t as cold today, and wasn’t bundled with blankets OBJECTIVE: Pt looked better today compared to prior session. PAIN: 8/10 in lower back pre and post exercise VITALS: Post-Treatment: SaO2 93% on RA Therapeutic Activities ([id number]): Direct one-on-one instruction in dynamic activities to improve functional performance. BED MOBILITY/TRANSFERS Rolling L/R: independent Supine-sit EOB: independent Sit-stand: supervised Stand-sit: independent Provided skilled cues and instruction on performance and technique throughout. GAIT Assistive Device: FWW, at the end pt noted to step away from the FWW and reach for the recliner. Weight bearing: as tolerated Assist: contact guard with w/c follow for safety Distance: 125 feet, Deviation: Patient struggled to walk in a straight line. She veered equally to both sides. PT cued patient for correct hand placement with the walker. Post correction of hand placement, pt continued to need verbal and tactile cues to prevent walking into the mckeon/corners. Exercises BLE Ankle pumps: 2x8 LAQ: 1x12 Seated Marches: 1x12 ASSESSMENT: Pt tolerated activity well today. However, pt needed a tactile and verbal cueing to help with ambulation with a FWW. Appeared pt could have walked further,however patient stated she felt weak and would not take a seated rest as instructed so she could get back to her room. PT would recommend a small break around 80 feet to allow pt to rest and continue further. At the end of session pt was agreeable to sit up in chair. Pt unable/unwilling to perform stairs d/t limited functional activity tolerance vs self limiting behaviors. Pt has multiple stairs at their home, and needs to accomplish stairs with PT to return to her home safely. next session will attempt stairs first then ambulate after ensure stairs are completed.. PLAN: 1-2x/day, 7 days/week x 1 week. Plan of care has been reviewed with the SCHOOL ADJUSTMENT COUNSELOR providing the service under Physical Therapy direction. Initiate Physical Therapy intervention for strengthening, bed mobility, transfers, gait, stairs, balance training, use of assistive device. TREATMENT CODE/TIME: 11152/0921–2192 DISCHARGE RECOMMENDATION: SNF versus home with HHPT Written by: Alberto Márquez DPTS Supervised By: Yeimy Elliott, PT [facility]
[2025-07-29] MEDS: DOXYCYCLINE 100 MG in Normal Saline 100 ML IVPB (12:44)
[2025-07-29] MEDS: Magnesium Chloride 64 MG TABCR PO (12:44)
[2025-07-29] MEDS: Ondansetron O.D.T. 4 MG TABEF PO (13:23)
--- NOTE | 2025-07-29 13:39 | DSE_ITS ---
Date of service: 07/29/25 Time of Service: 13:39 DS: Diagnosis Discharge Diagnosis (1) Acute hypoxic respiratory failure: Status: Acute (2) Acute exacerbation of chronic obstructive pulmonary disease (COPD): Status: Acute (3) History of bladder cancer: Status: Chronic (4) Depression: Status: Chronic (5) Essential hypertension: Status: Chronic (6) Chronic pain: Status: Chronic Discharge Plan Disposition Patient Disposition: Home W/Home Health Services Condition: Improving Discharge Details Reason For Visit: Hypoxic Respiratory Failure Admit Date/Time: 07/27/25 21:48 Admit Provider: Henry Vilchis Attending Provider: Henry Vilchis Primary Care Provider: Chanel Nelson Hospital Course Hospital Course: 75-year-old female with a 1-week history of increasing shortness of breath, productive cough, and weakness. The patient was found to be hypoxic upon presentation, with a pulse oximeter reading in the low 80s. Imaging suggested left lower lobe infiltrate, and there is a concern for an acute COPD exacerbation. No history of home oxygen use. The patient lives alone and is progressively becoming weaker, struggling with independent activities of daily living. A history of bladder cancer is noted, with a stable pulmonary nodule. The patient also has chronic pain and is losing weight. Patient had no CO2 retention noted on initial VBG. was given IV solu-medrol, started on prenisone and nebulizer treatments, IV ceftriaxone and IV doxycycline. Patient was weaned to room air and had maintained SPO2 > 88%. Patient was evaluated by PT for safe ambulation and they recommended Home Health PT. Home Meds and New Rx's Prescriptions: New prednisone 20 mg Tablet 40 mg PO DAILY Qty: 8 0RF cefpodoxime 200 mg tablet 200 mg PO BID Qty: 10 0RF Rx Instructions: must administer with a meal/food doxycycline hyclate 100 mg tablet 100 mg PO BID Qty: 10 0RF Continued acetaminophen [Tylenol Arthritis Pain] 650 mg tablet extended release 650 mg PO BID PRN ketoconazole 2 % cream 1 applic topical DAILY Qty: 120 6RF Rx Instructions: Apply to toenails once daily simethicone [Gas Relief (simethicone)] 80 mg tablet,chewable 80 mg PO TID-QID PRN (Reason: abdominal distention) Qty: 40 0RF Rx Instructions: Bloating, bubbling/gas in abdomen ibuprofen 200 mg capsule 200 mg PO BID PRN ondansetron 4 mg tablet,disintegrating 4 mg PO DAILY PRN (Reason: nausea and vomiting) Qty: 90 3RF albuterol sulfate [Ventolin HFA] 90 mcg/actuation HFA aerosol inhaler 2 puff inhalation Q6H PRN (Reason: shortness of breath or wheezing) Qty: 8.5 3RF pregabalin 225 mg capsule 225 mg PO BID Qty: 60 0RF Rx Instructions: Dose increase back to baseline Neuro dosing 10/10/2024 pantoprazole 20 mg tablet,delayed release (DR/EC) See Rx Instructions .ROUTE .COMPLEX Qty: 180 3RF Dose Instruction: TAKE 1 TABLET TWICE DAILY FOR REFLUX Rx Instructions: TAKE 1 TABLET TWICE DAILY FOR REFLUX duloxetine 60 mg capsule,delayed release(DR/EC) 60 mg PO DAILY Qty: 90 3RF pravastatin 40 mg tablet See Rx Instructions .ROUTE .COMPLEX Qty: 90 3RF Dose Instruction: TAKE 1 TABLET EVERY DAY Rx Instructions: TAKE 1 TABLET EVERY DAY mirtazapine 30 mg tablet 30 mg PO QHS Qty: 90 3RF celecoxib 200 mg capsule See Rx Instructions .ROUTE .COMPLEX Qty: 90 3RF Dose Instruction: TAKE 1 CAPSULE EVERY DAY IN THE MORNING WITH FOOD FOR CHRONIC SPINE PAIN (CERVICAL AND LUMBAR) Rx Instructions: TAKE 1 CAPSULE EVERY DAY IN THE MORNING WITH FOOD FOR CHRONIC SPINE PAIN (CERVICAL AND LUMBAR) potassium chloride 10 mEq capsule, extended release See Rx Instructions .ROUTE .COMPLEX Qty: 90 3RF Dose Instruction: TAKE 1 CAPSULE EVERY DAY Rx Instructions: TAKE 1 CAPSULE EVERY DAY spironolactone 25 mg tablet See Rx Instructions .ROUTE .COMPLEX Qty: 90 3RF Dose Instruction: TAKE 1 TABLET EVERY DAY FOR MAGNESIUM WASTING Rx Instructions: TAKE 1 TABLET EVERY DAY FOR MAGNESIUM WASTING cetirizine 10 mg tablet See Rx Instructions .ROUTE .COMPLEX Qty: 90 0RF Dose Instruction: TAKE 1 TABLET ONE TO TWO TIMES PER DAY. TAKE LOWEST EFFECTIVE DOSE Rx Instructions: TAKE 1 TABLET ONE TO TWO TIMES PER DAY. TAKE LOWEST EFFECTIVE DOSE magnesium oxide 400 mg (241.3 mg magnesium) tablet See Rx Instructions .ROUTE .COMPLEX Qty: 90 3RF Dose Instruction: TAKE 1 TABLET EVERY DAY Rx Instructions: TAKE 1 TABLET EVERY DAY amlodipine 2.5 mg tablet See Rx Instructions .ROUTE .COMPLEX Qty: 90 3RF Dose Instruction: TAKE 1 TABLET EVERY DAY Rx Instructions: TAKE 1 TABLET EVERY DAY famotidine [Pepcid] 20 mg tablet 20 mg PO BID Qty: 14 0RF Discharge Instructions Instructions: Exacerbation of COPD (DC), Cefpodoxime, Doxycycline, Prednisone Additional Instructions: 1. Medications: * Prednisone (steroid): * Dose: Take 40 mg daily. It is important to finish the entire course as directed. * Purpose: Reduces inflammation in your airways to help with breathing and control the exacerbation. * Side effects: You may experience increased appetite, trouble sleeping, or mood changes. If you notice any severe side effects, like swelling or severe mood swings, contact your doctor. * Important: Take with food to avoid stomach upset. Do not suddenly stop taking prednisone; follow your doctor’s tapering schedule. * Doxycycline (antibiotic): * Dose: Take 100 mg twice a day. * Purpose: Treats bacterial infections that might be contributing to the exacerbation. * Side effects: Common side effects include nausea, diarrhea, or a mild headache. If you develop a rash or difficulty breathing, contact your doctor immediately. * Important: Take the full course even if you feel better before it's finished. Take with plenty of water to avoid stomach upset. Avoid lying down immediately after taking it. * Cefpodoxime (antibiotic): * Dose: Take as prescribed, typically twice daily. * Purpose: Another antibiotic to address potential bacterial infections in your lungs. * Side effects: Possible side effects include diarrhea, nausea, and stomach upset. * Important: As with doxycycline, finish the full course. Take with food to reduce stomach upset. 2. Breathing Management: * Continue your maintenance inhalers and/or bronchodilators as prescribed. Make sure you understand the proper technique for inhaler use. * Breathing exercises may help, such as pursed-lip breathing or diaphragmatic breathing, to help with shortness of breath. 3. Activity and Rest: * Rest when needed but try to gradually return to normal activity. Avoid strenuous exertion for the next few days. * Avoid exposure to irritants, such as smoke, strong perfumes, or other environmental triggers. 4. Monitoring Symptoms: * Signs to watch for: If you notice worsening shortness of breath, increased cough, or more yellow/green sputum, it may indicate a need for further medical attention. * Emergency signs: If you experience chest pain, severe shortness of breath, confusion, or difficulty walking, seek medical attention immediately. 5. Follow-up Care: * Schedule a follow-up appointment with your primary care physician within one week. * If you feel your symptoms worsen before your appointment, contact your healthcare provider. 6. Oxygen Use: * You do not require supplemental oxygen at this time, but if you experience difficulty breathing or new signs of hypoxia (low oxygen levels) (such as confusion, cyanosis, or severe shortness of breath), seek emergency care or contact your doctor. 7. Fluids and Nutrition: * Drink plenty of fluids to stay hydrated. * Eat a balanced diet. If you're having trouble eating due to shortness of breath, try small, frequent meals. Stand Alone Forms: Portal Information, Nursing Discharge Form Referrals: Chanel Nelson LUDLOW MACHINE OPERATOR [Primary Care Provider, Medicine] Referral Note: 1 week post hospitalization for COPD exacerbation. Activity:: Activity as Tolerated Equipment/Supplies:: No Equipment Needed Diet:: As Tolerated Discharge Orders Discharge Orders: Discharge Order (Routine); Ordered 07/29/25 Ordered By: Aubrie Hanley Discharge Data Discharge Date/Time-TO BE ENTERED AT DEPARTURE: 07/29/25 16:12 DS: Summary Time Spent with Patient providing and/or coordinating discharge services: Greater than 30 minutes Status at Discharge Functional status at discharge: uses cane/walker Overall status at discharge: patient is progressing back to baseline Mental Status: mental status grossly normal Speech and Movement: speech and movement normal Mood: congruent mood Affect: normal affect Quality:SDOH Health Related Social Needs: Health related social needs risk of homeless house/eco n circumstance lonely/isolated education Health related social needs details so far im good Exam Const General: cooperative and no acute distress HENMT Mouth: mucous membranes dry Eyes Conjunctivae: normal conjunctivae Sclera: normal sclerae Neck Neck: trachea midline and supple Resp Effort & Inspection: able to speak in complete sentences and not labored Auscultation: no rales and no rhonchi Other: diminished BS right baase Cardio Jugular venous pressure: no JVD Rate: regular rate and not tachycardic Rhythm: regular rhythm GI Palpation: soft, not firm, no guarding, no masses, not rigid and tender in the epigastrum; with no rebound tenderness Skin General skin exam: no rashes or lesions noted Neuro General: patient alert, patient awake, patient oriented x3 and tone normal Extrem General: no calf tenderness and no edema Psych Appearance: grossly normal Mental Status: mental status grossly normal Speech and Movement: speech and movement normal Mood: congruent mood Affect: normal affect DS: Data Vitals/I&O Vitals and I&O: Vital Signs Temperature 37.2 C 07/29/25 11:34 Temperature Source Temporal Artery Scan 07/29/25 11:34 Pulse 76 07/29/25 11:34 Pulse Rhythm Regular 07/27/25 22:40 Respiratory Rate 16 07/29/25 11:34 Respiratory Effort Normal 07/27/25 22:40 Respiratory Depth Normal 07/27/25 22:40 Respiratory Pattern Normal 07/27/25 22:40 Blood Pressure 108/62 07/29/25 11:34 Blood Pressure Mean 77 07/29/25 11:34 Blood Pressure Position Sitting 07/27/25 17:34 Pulse Oximetry 95 07/29/25 11:34 Oxygen Delivery Method Room Air 07/29/25 11:34 Oxygen Flow Rate 0 07/29/25 11:34 Pain Level 0 07/29/25 07:39 Comment applied 1 L NC and continuous SpO2 monitor to ensure sat >92% 07/27/25 22:50 Intake & Output 07/28/25 07/29/25 07/29/25 23:59 11:59 23:59 Intake Total 120 / 280 170 / 170 Output Total 200 / 400 400 / 400 Balance -80 / -120 -230 / -230 Weight 44.9 kg Intake: IV 120 / 280 170 / 170 Output: Urine 200 / 400 400 / 400 Other: Urine Color Yellow Yellow Urine Appearance Clear Clear Urine Odor Normal Strong Data Completed and Pending Pending Labs at Discharge: 07/27/25 07/27/25 07/27/25 16:00 17:40 18:55 WBC 11.87 H RBC 3.68 L Hgb 10.2 L Hct 32.0 L MCV 87 MCH 27.7 MCHC 31.9 L RDW 14.4 Plt Count 163 MPV 10.8 Immature Gran % 0.4 Neutrophils % 84.7 Lymphocytes % 8.8 Monocytes % 5.1 Eosinophils % 0.8 Basophils % 0.2 Nucleated RBC % 0.0 Absolute Neutrophils 10.05 H Absolute Lymphocytes 1.04 L Absolute Monocytes 0.61 Absolute Eosinophils 0.09 Absolute Basophils 0.02 VBG pH 7.42 H VBG pCO2 40 L VBG pO2 39 VBG HCO3 26 VBG Total CO2 24 VBG O2 Saturation 74 VBG Base Excess 1 VBG Lactate 1.1 Sodium 135 L Potassium 4.5 Chloride 99 Carbon Dioxide 24.9 Anion Gap 11.1 H BUN 15 Creatinine 0.8 Est GFR (CKD-EPI 2020) 76.79 Glucose 103 Calcium 9.1 Magnesium Total Bilirubin 0.7 AST 27 ALT 22 Alkaline Phosphatase 134 H Troponin I 5 NT-Pro-B Natriuret Pep 1687 H Total Protein 7.4 Albumin 3.9 TSH Free T4 Urine Color Yellow Urine Clarity Clear Urine pH 6.5 Ur Specific [place] 1.020 Urine Protein 100 H Urine Ketones 15 H Urine Blood Trace-lysed H Urine Nitrite Negative Urine Bilirubin Negative Urine Urobilinogen 0.2 Ur Leukocyte Esterase Negative Urine RBC 0-2 Urine WBC Negative Ur Epithelial Cells Negative Urine Crystals Negative Urine Bacteria Negative Urine Casts Urine Mucus Trace Ur Culture Indicated? No Urine Glucose Negative COVID-19 Source Cancelled SARS-CoV-2 (PCR) Cancelled Influenza Type A (PCR) Cancelled Influenza Type B (PCR) Cancelled RSV (PCR) Cancelled 07/27/25 07/28/25 07/28/25 19:20 06:04 08:30 WBC 3.46 L RBC 3.70 L Hgb 10.4 L Hct 32.3 L MCV 87 MCH 28.1 MCHC 32.2 RDW 14.5 Plt Count 165 MPV 11.6 H Immature Gran % Neutrophils % Lymphocytes % Monocytes % Eosinophils % Basophils % Nucleated RBC % Absolute Neutrophils Absolute Lymphocytes Absolute Monocytes Absolute Eosinophils Absolute Basophils VBG pH VBG pCO2 VBG pO2 VBG HCO3 VBG Total CO2 VBG O2 Saturation VBG Base Excess VBG Lactate Sodium 136 Potassium 4.5 Chloride 101 Carbon Dioxide 25.6 Anion Gap 9.4 BUN 18 Creatinine 0.8 Est GFR (CKD-EPI 2020) 76.79 Glucose 123 H Calcium 9.0 Magnesium 1.7 L Total Bilirubin 0.5 AST 20 ALT 16 Alkaline Phosphatase 120 H Troponin I 6 NT-Pro-B Natriuret Pep Total Protein 7.1 Albumin 3.6 TSH 6.51 H Free T4 1.15 Urine Color Urine Clarity Urine pH Ur Specific [place] Urine Protein Urine Ketones Urine Blood Urine Nitrite Urine Bilirubin Urine Urobilinogen Ur Leukocyte Esterase Urine RBC Urine WBC Ur Epithelial Cells Urine Crystals Urine Bacteria Urine Casts Urine Mucus Ur Culture Indicated? Urine Glucose COVID-19 Source Nasopharynx SARS-CoV-2 (PCR) Negative Influenza Type A (PCR) Negative Influenza Type B (PCR) Negative RSV (PCR) Negative 07/28/25 07/29/25 10:30 06:20 WBC 7.91 RBC 3.61 L Hgb 10.2 L Hct 31.5 L MCV 87 MCH 28.3 MCHC 32.4 RDW 14.6 Plt Count 154 MPV 11.5 H Immature Gran % Neutrophils % Lymphocytes % Monocytes % Eosinophils % Basophils % Nucleated RBC % Absolute Neutrophils Absolute Lymphocytes Absolute Monocytes Absolute Eosinophils Absolute Basophils VBG pH VBG pCO2 VBG pO2 VBG HCO3 VBG Total CO2 VBG O2 Saturation VBG Base Excess VBG Lactate Sodium 140 Potassium 3.8 Chloride 104 Carbon Dioxide 25.0 Anion Gap 11.0 BUN 34 H Creatinine 0.9 Est GFR (CKD-EPI 2020) 66.67 Glucose 80 Calcium 8.7 Magnesium 1.7 L Total Bilirubin 0.5 AST 19 ALT 15 Alkaline Phosphatase 102 Troponin I NT-Pro-B Natriuret Pep Total Protein 6.5 Albumin 3.3 L TSH Free T4 Urine Color Yellow Urine Clarity Clear Urine pH 6.0 Ur Specific [place] 1.015 Urine Protein 30 H Urine Ketones Trace H Urine Blood Negative Urine Nitrite Negative Urine Bilirubin Negative Urine Urobilinogen 0.2 Ur Leukocyte Esterase Negative Urine RBC Negative Urine WBC Negative Ur Epithelial Cells Negative Urine Crystals Negative Urine Bacteria Negative Urine Casts Negative Urine Mucus Negative Ur Culture Indicated? No Urine Glucose Negative COVID-19 Source SARS-CoV-2 (PCR) Influenza Type A (PCR) Influenza Type B (PCR) RSV (PCR) PFSH All Active Problems (Updated 07/28/25 @ 07:48 by Henry Vilchis) Acute hypoxic respiratory failure (Acute) Hypoxia (Acute) Bilateral shoulder pain (Acute) Chronic nausea (Acute) Ondansetron effective Multifocal pneumonia (Acute) Acute exacerbation of chronic obstructive pulmonary disease (COPD) (Acute) Pulmonary nodules/lesions, multiple (Acute ~04/2025) History of bladder cancer (Chronic) Superficial Bladder CA, yearly cysto for surveillance. Dr. Wiggins Advanced care planning/counseling discussion (Acute) Palliative care encounter (Acute) Weight loss (Acute) PVD (peripheral vascular disease) (Chronic) Pain in both feet (Acute) Onychomycosis (Acute) High risk for fracture due to osteoporosis by DEXA scan (Acute ~03/2023) RX Fosamax Poor manual dexterity (Acute) Lung nodule seen on imaging study (Acute ~10/2022) Annual LDCT Impaired gait and mobility (Acute) Chronic pain (Chronic) Due to OA shoulders, knees, Spinal stenosis. 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/03/16 Cervical myelopathy (Chronic) Spinal stenosis, lumbar region without neurogenic claudication (Acute 12/14/11) Osteoarthritis of spine with radiculopathy, cervical region (Acute 09/05/11) Sacroiliac joint dysfunction of right side (Acute) Spinal stenosis of lumbar region with radiculopathy (Acute) 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 Dr Velazco, [facility] [place] Neurology Essential hypertension (Chronic 02/26/13) [place] cardiac risk >20% in next 10 years (Chronic) 2020: 32% Magnesium-losing nephropathy (Chronic) very mild; tx spironolactone GERD (gastroesophageal reflux disease) (Chronic) Depression (Chronic 07/01/14) Medical marijuana use (Chronic) Arthritis of left glenohumeral joint (Chronic ~07/01/14) Medical History Abnormal weight loss Urothelial carcinoma of bladder (~2016) [facility] U[facility] Leg edema Osteopenia (12/14/11) Osteoporosis wrist, osteopenia hip, normal bone density of spine 2017 osteopenia 2011 CHF exacerbation Acute cystitis Pneumonia Acute UTI Weakness Acute UTI Anemia Smoker Unintentional weight loss Delayed gastric emptying mild Hyperlipidemia Neuropathy Sessile colonic polyp (03/14/18) Adhesive capsulitis of left shoulder Injected 12/11/2018 Spinal stenosis Hx of bacterial pneumonia Surgical History H/O laminectomy (~06/2021) APD-L3-L4 laminectomy, medial fa for decompression of stenosis, lateral disectomy [id number] Cervical spondylosis 11/03/20 C5-[address] Everett Cardoza 11/04/20 D/C'd home Status post shoulder hemiarthroplasty History of hemiarthroplasty of left shoulder 09/07/2015 H/O cystoscopy (09/06/18) w/transurethral resection of bladder tumors-Dr Wiggins Tenotomy and debridement tendon L shoulder (10/25/17) Rotator Cuff Repair Repair of umbilical hernia Hemiarthroplasty (09/07/15) L shoulder Dr Luz Colonoscopy - MAC (03/12/18) Colon,transverse,polyp,biopsy - fragment of sessile serrated adenoma. (Dr Neely) Breast, Lumpectomy Arthroplasty of knee Per patient she has not had a TOTAL KNEE Anterior Fusion Cervical Spine C3-C5 (07/31/16) Jul 2016, [facility] [place] Dr. Martinez Family History Father Essential hypertension Glaucoma Alzheimer's dementia Social History Smoking/Tobacco Use Status: Former Tobacco Use Quit Date: 02/10/25 Smoking risk assessment performed?: Yes Alcohol Intake: former Drug use: Daily Substance use type: marijuana Details: marijuana: uses qd Last used Monday09/30/23 Household members: none Housing: house Number of Children: 0 Pets and animals: Yes Pets and animals: cat(s) and dog(s) Current gender identity: female What type of physical activity do you participate in: none and other Details: PT 2 xweek Frequency: 1-2 times per week Seatbelt use: always Drive intox or ride w/intox motorcycle delivery driver: No Working smoke detector in home: Yes Fire extinguisher in home: Yes Carbon monox detector in home: Yes Do you feel safe at home: Yes Do you feel safe in your relationship?: Yes Time Spent with Patient Time Spent with Patient: 45-69 minutes Time was spent: preparing to see the patient(eg.review tests), ordering medications,tests, procedures, referring, communicating with other health farm or ranch animal caretaker, indepentently interpreting results, counseling the patient and care coordination
--- NOTE | 2025-07-29 16:36 | CMDISCH_ITS ---
Date of service: 07/29/25 Time of Service: 16:36 LACE Index Scoring Tool Questions: Length of Stay (in days): 2 Was the patient admitted via the E.D.?: Yes Comorbidities: Congestive Heart Failure and Any Tumor E.D. Visits: 5 Answers: Total Score: 14 Risk of Readmission: High Risk Care Management Discharge Plan Reason for Hospitalization: hypoxic respiratory failure Discharge Plan: Belén was discharged home this afternoon with new HH services of PT. She declined the offer of SN at this time. Belén will f/u with her PCP, continue with her [place] caregiver and per her discharge plan of care. Belén was transported home by her good friend, Scot, who stated that Belén has a village. Patient/Family Education Needs: Review of discharge instructions, activity, limitations, and discuss Ask me 3. Services Needed at Discharge: Home Health Care Services (PT) SDOH Health Related Social Needs: Health related social needs risk of homeless house/eco n circumstance lonely/isolated education Health related social needs details so far surjit freeman
--- NOTE | 2025-07-29 17:09 | PDOC.HHF2F ---
Date of service: 07/29/25 Time of Service: 14:00 Home Health Referral Home Health Orders Clinical synopsis of why skilled professionals are needed: Hospital Course: 75-year-old female with a 1-week history of increasing shortness of breath, productive cough, and weakness. The patient was found to be hypoxic upon presentation, with a pulse oximeter reading in the low 80s. Imaging suggested left lower lobe infiltrate, and there is a concern for an acute COPD exacerbation. No history of home oxygen use. The patient lives alone and is progressively becoming weaker, struggling with independent activities of daily living. A history of bladder cancer is noted, with a stable pulmonary nodule. The patient also has chronic pain and is losing weight. Patient had no CO2 retention noted on initial VBG. was given IV solu-medrol, started on prenisone and nebulizer treatments, IV ceftriaxone and IV doxycycline. Patient was weaned to room air and had maintained SPO2 > 88%. Patient was evaluated by PT for safe ambulation and they recommended Home Health PT. Medical diagnosis necessitation home health referral: COPD Physical Therapist: Check all that apply Increase strength & endurance for safe mobility at home: Ordered To design/establish home maintenance program: Ordered Fall reduction therapy program for patient with history of frequent falls: Ordered Home safety evaluation and teaching/gait training including stair management (if applicable): Ordered Occupational Therapist: Evaluate and treat for patient unable to perform ADL/IADL/self-care: Ordered Upper extremity strengthening, range and motion: Ordered Web Solutions Architect: Assist with community resources: Ordered Assist with watermelon harvesting supervisor care planning: Ordered Home Bound Status Assistance of another person (Describe assistance and medical necessity): Requires assistance of one person and a device. Patient has a condition such that leaving home is medically contraindicated (Describe): COPD Describe why leaving home would require a considerable and taxing effort: Requires frequent rest periods Encounter Date and Reason: I certify that a FTF encounter for this patient was performed on July 29, 2025 and that such encounter was related to the primary reason the patient requires home health services. The encounter was conducted in the following manner: By me as the certifying physician, SEWING PATTERN LAYOUT TECHNICIAN, PA or By an inpatient physician, SEWING PATTERN LAYOUT TECHNICIAN or PA during an inpatient stay who communicated findings to me, Certification And Authentication I certify that I composed the above information based on my clinical judgment relating to this patient's medical condition and, if applicable, clinical findings communicated to me by the NPP or inpatient physician who performed the FTF encounter. Name of Provider that will be monitoring home health services: Chanel Nelson
--- NOTE | 2025-07-30 09:57 | PDOC.CMACT ---
Date of service: 07/30/25 Time of Service: 09:58 Care Management Activity Note Activity Note Text Activity Note Text: ZHANE had a call from Scot Sanders today. He is Belén's good friend and HIPAA contact. He stated that he did not know that Belén was in the hospital until she was here for 3 days. He is asking the he be called immediately if Belén returns to the hospital. CM notified Access of this.
== END 2025-07-29 16:12 | disposition home health service (06) | DRG 193 ==
LOC: ER 19:53 → MS 22:29
PROVIDERS: Admitting Provider Family Medicine; Emergency Provider General Practice; PCP Nurse Practitioner Adult Health; Responsible Provider Nurse Practitioner Family; Visit Provider Family Medicine
DX: J96.01 Acute respiratory failure with hypoxia (principal); J18.9 Pneumonia, unspecified organism; J44.1 Chronic obstructive pulmonary disease with (acute) exacerbation; J44.0 Chronic obstructive pulmonary disease with (acute) lower respiratory infection; Z85.51 Personal history of malignant neoplasm of bladder; G89.4 Chronic pain syndrome; Z68.1 Body mass index [BMI] 19.9 or less, adult; R91.1 Solitary pulmonary nodule; R63.4 Abnormal weight loss; Z59.811 Housing instability, housed, with risk of homelessness; Z74.09 Other reduced mobility; G62.9 Polyneuropathy, unspecified; M51.360 Other intervertebral disc degeneration, lumbar region with discogenic back pain only; K21.9 Gastro-esophageal reflux disease without esophagitis; F12.90 Cannabis use, unspecified, uncomplicated; F32.A Depression, unspecified; N05.9 Unspecified nephritic syndrome with unspecified morphologic changes; Z59.9 Problem related to housing and economic circumstances, unspecified; R45.89 Other symptoms and signs involving emotional state; I50.810 Right heart failure, unspecified; I11.0 Hypertensive heart disease with heart failure
CPT/HCPCS: 00123; 36415; 71275; 80053; 82805; 85027; 87637; 93005; 94640; 94761; 96365; 96375; 97162; 97530; 99285; J3490; 71045; 81003; 81015; 83605; 83735; 83880; 84439; 84443; 84484; 85025; 93010; 93306; 94760; 99223; 99231; 99239; J0456; J0696; J1650; J2919; J7512; J7620

== ENCOUNTER 2025-08-30 09:26 | Emergency (ER) | payer MEDICARE, MEDICAID, SELFPAY ==
[2025-08-30 09:30] VITALS: BP 191/73; PULSE 88; RESP 18; TEMP 36.8; O2SAT 98
--- NOTE | 2025-08-30 09:30 | RT.EKG_ITS ---
APPROVED REPORT Exam: Resting ECG Reason for Exam: CP/SOB Patient Location: E HR:84 bpm ECG Measurements Heart Rate 84 AXIS AL 137 P 74 QRSd 76 QRS 56 QT 402 T 24 QTc 478 Conclusion Sinus rhythm...normal P axis, V-rate 60- 99 Atrial premature complex...SV complex w/ short R-R interval No STEMI
--- NOTE | 2025-08-30 09:30 | DI.RAD_ITS ---
Exam(s) XR CHEST 2V PA LATERAL EXAM: XR CHEST 2V PA LATERAL CLINICAL HISTORY: SOB. TECHNIQUE: 2D digital imaging was performed. COMPARISON: CR XR PORTABLE CHEST AP from 07/27/2025 FINDINGS: 2 views: Again noted is anterior fusion hardware in the lower cervical spine, left shoulder prosthesis and evidence of prior surgery in the right shoulder. Heart size is normal. The mediastinum is not widened. Lungs are clear. No infiltrates nor pleural effusions. IMPRESSION: No acute pulmonary findings. DATA REPOSITORY: RADIATION DOSE DELIVERED:
[2025-08-30 09:37] VITALS: BP 191/73; PULSE 88; RESP 18; TEMP 36.8; O2SAT 98
[2025-08-30 09:52] VITALS: RESP 22
[2025-08-30 10:01] LABS: Abs Immature Grans 0.02 10^3/uL (0.0-0.06); HCT 36.2 % (36.0-46.0); HGB 11.8 g/dL (11.2-15.7); Immature Grans % 0.3 %; MCH 27.6 pg (27.0-33.0); MCHC 32.6 % (32.0-36.0); MCV 85 fL (80-95); MPV 10.2 fL (8.0-11.0); Platelet Count 247 10^3/uL (130-400); RBC 4.28 10^6/uL (3.93-5.22); RDW 14.2 % (11.7-14.6); RDW-SD 43.9 fL; WBC 6.88 10^3/uL (4.4-10.8)
[2025-08-30 10:02] LABS: BE (Venous) 1 mmol/L (-2-3); HCO3 (Venous) 25 mmol/L (23-28); O2 Sat (Venous) 84 %; TCO2 (Venous) 23 mmol/L (24-29); pCO2 (Venous) 35 mmHg (41-51); pO2 (Venous) 44 mmHg
[2025-08-30 10:22] LABS: Troponin I 3 ng/L (<35)
[2025-08-30 10:23] LABS: Magnesium 1.6 mg/dL (1.6-2.6)
[2025-08-30 10:24] LABS: Lipase 36 U/L (<53)
[2025-08-30] MEDS: Pantoprazole 40 MG VIAL IVP (10:24)
[2025-08-30] MEDS: MORPHine 10 MG/ML VIAL 2 MG IVP (10:24)
[2025-08-30] MEDS: Mylanta Suspension 30 ML CUP PO (10:24)
[2025-08-30 10:25] LABS: ALT 12 U/L (10-49); AST 23 U/L (<34); Albumin 4.2 g/dL (3.2-5.0); Alkaline Phosphatase 108 U/L (46-116); Anion Gap 9.9 mmol/L (3-11); BUN 17 mg/dL (9-23); Bilirubin, Total 0.70 mg/dL (0.2-1.2); CO2 24.1 mmol/L (20.0-31.0); Calcium 9.3 mg/dL (8.3-10.6); Chloride 101 mmol/L (98-107); Glucose 100 mg/dL (74-106); Potassium 3.3 mmol/L (3.5-5.1); Sodium 135 mmol/L (136-145); Total Protein 7.3 g/dL (5.7-8.2)
[2025-08-30] MEDS: Ondansetron 4 MG/2 ML VIAL IVP (10:25)
[2025-08-30] MEDS: Normal Saline 500 ML 1000 ML IV (10:26)
[2025-08-30 10:33] LABS: COVID-19 PCR Negative (Negative); RSV PCR Negative (Negative)
--- NOTE | 2025-08-30 10:38 | W.ED.GENAD ---
Discharge Plan Disposition Patient Disposition: Home Discharge Details Clinical Impression: Chronic pain, Bilateral shoulder pain, Back pain, Neck pain Primary Care Provider: Chanel Nelson ED Provider: Mikey Hemphill Home Meds and New Rx's Prescriptions: New morphine 15 mg tablet extended release 15 mg PO Q12H Qty: 12 0RF docusate sodium [Colace] 100 mg capsule 100 mg PO BID Qty: 60 0RF ondansetron 4 mg tablet,disintegrating 4 mg PO Q6H PRNQty: 30 0RF No Action acetaminophen [Tylenol Arthritis Pain] 650 mg tablet extended release 650 mg PO BID PRN ketoconazole 2 % cream 1 applic topical DAILY Qty: 120 6RF Rx Instructions: Apply to toenails once daily simethicone [Gas Relief (simethicone)] 80 mg tablet,chewable 80 mg PO TID-QID PRN (Reason: abdominal distention) Qty: 40 0RF Rx Instructions: Bloating, bubbling/gas in abdomen ibuprofen 200 mg capsule 200 mg PO BID PRN ondansetron 4 mg tablet,disintegrating 4 mg PO DAILY PRN (Reason: nausea and vomiting) Qty: 90 3RF albuterol sulfate [Ventolin HFA] 90 mcg/actuation HFA aerosol inhaler 2 puff inhalation Q6H PRN (Reason: shortness of breath or wheezing) Qty: 8.5 3RF pregabalin 225 mg capsule 225 mg PO BID Qty: 60 0RF Rx Instructions: Dose increase back to baseline Neuro dosing 10/10/2024 duloxetine 60 mg capsule,delayed release(DR/EC) 60 mg PO DAILY Qty: 90 3RF pravastatin 40 mg tablet See Rx Instructions .ROUTE .COMPLEX Qty: 90 3RF Dose Instruction: TAKE 1 TABLET EVERY DAY Rx Instructions: TAKE 1 TABLET EVERY DAY mirtazapine 30 mg tablet 30 mg PO QHS Qty: 90 3RF celecoxib 200 mg capsule See Rx Instructions .ROUTE .COMPLEX Qty: 90 3RF Dose Instruction: TAKE 1 CAPSULE EVERY DAY IN THE MORNING WITH FOOD FOR CHRONIC SPINE PAIN (CERVICAL AND LUMBAR) Rx Instructions: TAKE 1 CAPSULE EVERY DAY IN THE MORNING WITH FOOD FOR CHRONIC SPINE PAIN (CERVICAL AND LUMBAR) potassium chloride 10 mEq capsule, extended release See Rx Instructions .ROUTE .COMPLEX Qty: 90 3RF Dose Instruction: TAKE 1 CAPSULE EVERY DAY Rx Instructions: TAKE 1 CAPSULE EVERY DAY spironolactone 25 mg tablet See Rx Instructions .ROUTE .COMPLEX Qty: 90 3RF Dose Instruction: TAKE 1 TABLET EVERY DAY FOR MAGNESIUM WASTING Rx Instructions: TAKE 1 TABLET EVERY DAY FOR MAGNESIUM WASTING cetirizine 10 mg tablet See Rx Instructions .ROUTE .COMPLEX Qty: 90 0RF Dose Instruction: TAKE 1 TABLET ONE TO TWO TIMES PER DAY. TAKE LOWEST EFFECTIVE DOSE Rx Instructions: TAKE 1 TABLET ONE TO TWO TIMES PER DAY. TAKE LOWEST EFFECTIVE DOSE magnesium oxide 400 mg (241.3 mg magnesium) tablet See Rx Instructions .ROUTE .COMPLEX Qty: 90 3RF Dose Instruction: TAKE 1 TABLET EVERY DAY Rx Instructions: TAKE 1 TABLET EVERY DAY amlodipine 2.5 mg tablet See Rx Instructions .ROUTE .COMPLEX Qty: 90 3RF Dose Instruction: TAKE 1 TABLET EVERY DAY Rx Instructions: TAKE 1 TABLET EVERY DAY pantoprazole 20 mg tablet,delayed release (DR/EC) See Rx Instructions .ROUTE .COMPLEX Qty: 180 3RF Dose Instruction: TAKE 1 TABLET TWICE DAILY FOR REFLUX Rx Instructions: TAKE 1 TABLET TWICE DAILY FOR REFLUX famotidine [Pepcid] 20 mg tablet 20 mg PO BID Qty: 14 0RF prednisone 20 mg Tablet 40 mg PO DAILY Qty: 8 0RF Discharge Instructions Instructions: Chronic pain, Opioids for Short-Term Treatment of Pain ED Additional Instructions: As discussed, there are multiple side effects from oral morphine, most notably there is a possibility of addiction, so please be mindful of this and if you feel like you are becoming addicted to the medication please discuss treatment options with your primary care provider. Further these drugs can also cause some sedation and put you at risk for falls at home, so please be careful when taking them and be sure to evaluate your home for ways to minimize accidental trips and falls such as loose carpeting, doorway fixtures, or other items strewn in your living quarters. Finally most commonly, these medications can cause constipation. As such please ensure to take plenty of water by mouth, and also use the prescribed Colace which should help you formed bowel movements. Your evaluation today in the emergency department shows no acute emergent issues, but I do suspect that your chronic pain is beginning to become debilitating. I am unable to refer you to the pain management clinic from the ER, so I would encourage you to follow-up with your primary care provider to discuss indications for referral to this clinic. Please also let them know if the trial of p.o. morphine is helpful in managing her chronic pain. Please follow-up with your primary care provider regarding your visit to the emergency department today. Be sure to discuss results of all test performed here today to include radiology, and laboratory testing as well as results for any pending cultures. Should your symptoms worsen, or if you develop new concerning symptoms, please return immediately emergency department for further evaluation. Stand Alone Forms: Portal Information HPI General Date/Time Provider Initiated Documentation: 08/30/25 09:37. HPI Narrative: MDM/Narrative: 75-year-old female presents for multiple chronic complaints. Vital signs in normal limits. Physical exam shows an elderly female who appears uncomfortable, with no focal neurologic deficits, no rigidity, distention, or significant tenderness, breath sounds are clear bilaterally. Given patient's broad complaints advanced age and comorbidities will perform a broad screening assessment with blood work, chest x-ray, urine sample, EKG however I suspect patient truly requires chronic pain management and perhaps increased support. Friend at bedside states he is willing to move in with the patient to help care for her, and she is already receiving visiting PT/OT help at this time. If no acute emergent issues are found, will discharge patient with plan to discuss referral to pain management with her primary care provider. ED course: Laboratory and imaging results showed no acute findings that explain any of patient's pain. On reassessment, she notes significant improvement following IV morphine 2 mg. In further discussion with the patient, it sounds like chronic pain management is truly the driving factor behind her evaluation today. As such we will trial patient on 15 mg morphine controlled release p.o. as an outpatient and encouraged follow-up with PCP to discuss a referral to pain management as I am unable to provide that from the emergency department. I counseled the patient on the use of stool softeners, and increase fluid intake as constipation is a very common side effect of these medications. She is in agreement with the plan and is stable for discharge at this time. Disposition: Home HPI: 75-year-old female with past medical history of COPD, peripheral vascular disease degenerative disc disease, multiple cervical fusions with chronic cervical myelopathy, bilateral shoulder repair with chronic shoulder pain, presents for evaluation of multiple complaints. She notes that all these complaints been present for at least several months, she notes she feels tired, severe arm pain, epigastric/left upper quadrant abdominal pain, and cough with phlegm present. When pressed further as to why she decided to seek evaluation today, it was because she was convinced by her friend who was at bedside as he believes that she requires chronic pain management. He notes that he has offered to move in with the patient to help her take care of herself but she still currently lives alone. She notes that she is receiving visiting PT and OT since her hospitalization last month when I evaluated her last, for acute hypoxic respiratory failure. At that time inpatient workup was notable for an echocardiogram which showed preserved ejection fracture no other abnormalities, the patient still does not require O2 supplementation. She notes that working with PT has been somewhat helpful, but notes that she has never tried any chronic pain management. Otherwise she denies any fever, chills, vomiting, diarrhea, rash or any other new or concerning symptoms. ROS: Negative besides as mentioned above Exam: Gen: A&O NAD, elderly and frail, appears uncomfortable HEENT: NCAT, EOMI, not icteric. External ears normal. No rhinorrhea. Moist mucous membranes. Neck: Limited range of motion, kyphotic no midline tenderness to palpation Lungs: No Respiratory distress. CV: RRR, no edema. Abdomen: Soft, nondistended, No rebound tenderness. Reported left upper quadrant tenderness to palpation MSK: No joint swelling, no redness. Skin: No rashes, petechiae, lesions. Normal color per patient. Neuro: Motor strength is 5 out of 5 throughout the upper and lower extremities, sensation to light touch intact throughout. Psych: Appropriate for situation. Rhythm: NSR Rate: Sinus rhythm [place]: Normal axis Intervals: Normal intervals Other findings: Multiple APCs, no acute ST segment or T wave changes to suggest acute ischemia. Labs: Laboratory Tests Range/Units 08/30/25 08/30/25 08/30/25 09:41 09:43 09:50 WBC (4.4-10.8) 10^3/uL 6.88 RBC (3.93-5.22) 10^6/uL 4.28 Hgb (11.2-15.7) g/dL 11.8 Hct (36.0-46.0) % 36.2 MCV (80-95) fL 85 MCH (27.0-33.0) pg 27.6 MCHC (32.0-36.0) % 32.6 RDW (11.7-14.6) % 14.2 Plt Count (130-400) 10^3/uL 247 MPV (8.0-11.0) fL 10.2 Immature Gran % % 0.3 Neutrophils % % 74.9 Lymphocytes % % 17.9 Monocytes % % 6.0 Eosinophils % % 0.6 Basophils % % 0.3 Nucleated RBC % (0.0-0.3) % 0.0 Absolute Neutrophils (1.2-6.7) 10^3/uL 5.16 Absolute Lymphocytes (1.2-3.4) 10^3/uL 1.23 Absolute Monocytes (0.1-0.8) 10^3/uL 0.41 Absolute Eosinophils (0.0-0.7) 10^3/uL 0.04 Absolute Basophils (0.0-0.2) 10^3/uL 0.02 VBG pH (7.31-7.41) 7.46 H VBG pCO2 (41-51) mmHg 35 L VBG pO2 mmHg 44 VBG HCO3 (23-28) mmol/L 25 VBG Total CO2 (24-29) mmol/L 23 L VBG O2 Saturation % 84 VBG Base Excess (-2-3) mmol/L 1 Sodium (136-145) mmol/L 135 L Potassium (3.5-5.1) mmol/L 3.3 L Chloride (98-107) mmol/L 101 Carbon Dioxide (20.0-31.0) mmol/L 24.1 Anion Gap (3-11) mmol/L 9.9 BUN (9-23) mg/dL 17 Creatinine (0.55-1.02) mg/dL 0.65 Est GFR (CKD-EPI 2020) (mL/min/1.73m2) 88.73 Glucose (74-106) mg/dL 100 Calcium (8.3-10.6) mg/dL 9.3 Magnesium (1.6-2.6) mg/dL 1.6 Total Bilirubin (0.2-1.2) mg/dL 0.70 AST (<34) U/L 23 ALT (10-49) U/L 12 Alkaline Phosphatase (46-116) U/L 108 Troponin I (<35) ng/L 3 NT-Pro-B Natriuret Pep (<300) pg/mL 821 H Total Protein (5.7-8.2) g/dL 7.3 Albumin (3.2-5.0) g/dL 4.2 Lipase (<53) U/L 36 Urine Color (Yellow) Urine Clarity (Clear) Urine pH (5-8) Ur Specific [place] (1.005-1.025) Urine Protein (Neg-Trace) mg/dL Urine Ketones (Negative) mg/dL Urine Blood (Negative) Urine Nitrite (Negative) Urine Bilirubin (Negative) Urine Urobilinogen (Up to 0.2) mg/dL Ur Leukocyte Esterase (Negative) Urine Glucose (Negative) mg/dL COVID-19 Source Nasopharynx Cancelled SARS-CoV-2 (PCR) (Negative) Negative Cancelled Influenza Type A (PCR) (Negative) Negative Cancelled Influenza Type B (PCR) (Negative) Negative Cancelled RSV (PCR) (Negative) Negative Cancelled Range/Units 08/30/25 08/30/25 10:55 11:38 WBC (4.4-10.8) 10^3/uL RBC (3.93-5.22) 10^6/uL Hgb (11.2-15.7) g/dL Hct (36.0-46.0) % MCV (80-95) fL MCH (27.0-33.0) pg MCHC (32.0-36.0) % RDW (11.7-14.6) % Plt Count (130-400) 10^3/uL MPV (8.0-11.0) fL Immature Gran % % Neutrophils % % Lymphocytes % % Monocytes % % Eosinophils % % Basophils % % Nucleated RBC % (0.0-0.3) % Absolute Neutrophils (1.2-6.7) 10^3/uL Absolute Lymphocytes (1.2-3.4) 10^3/uL Absolute Monocytes (0.1-0.8) 10^3/uL Absolute Eosinophils (0.0-0.7) 10^3/uL Absolute Basophils (0.0-0.2) 10^3/uL VBG pH (7.31-7.41) VBG pCO2 (41-51) mmHg VBG pO2 mmHg VBG HCO3 (23-28) mmol/L VBG Total CO2 (24-29) mmol/L VBG O2 Saturation % VBG Base Excess (-2-3) mmol/L Sodium (136-145) mmol/L Potassium (3.5-5.1) mmol/L Chloride (98-107) mmol/L Carbon Dioxide (20.0-31.0) mmol/L Anion Gap (3-11) mmol/L BUN (9-23) mg/dL Creatinine (0.55-1.02) mg/dL Est GFR (CKD-EPI 2020) (mL/min/1.73m2) Glucose (74-106) mg/dL Calcium (8.3-10.6) mg/dL Magnesium (1.6-2.6) mg/dL Total Bilirubin (0.2-1.2) mg/dL AST (<34) U/L ALT (10-49) U/L Alkaline Phosphatase (46-116) U/L Troponin I (<35) ng/L 4 NT-Pro-B Natriuret Pep (<300) pg/mL Total Protein (5.7-8.2) g/dL Albumin (3.2-5.0) g/dL Lipase (<53) U/L Urine Color (Yellow) Chen Urine Clarity (Clear) Clear Urine pH (5-8) 6.5 Ur Specific [place] (1.005-1.025) 1.025 Urine Protein (Neg-Trace) mg/dL 100 H Urine Ketones (Negative) mg/dL 40 H Urine Blood (Negative) Negative Urine Nitrite (Negative) Negative Urine Bilirubin (Negative) Moderate H Urine Urobilinogen (Up to 0.2) mg/dL 1.0 H Ur Leukocyte Esterase (Negative) Negative Urine Glucose (Negative) mg/dL Negative COVID-19 Source SARS-CoV-2 (PCR) (Negative) Influenza Type A (PCR) (Negative) Influenza Type B (PCR) (Negative) RSV (PCR) (Negative) Radiology: PROCEDURE INFORMATION: Exam: XR Chest Exam date and time: 08/30/2025 10:36 AM Age: 75 years old Clinical indication: Shortness of breath TECHNIQUE: Imaging protocol: Radiologic exam of the chest. Views: 2 views. COMPARISON: CT CHEST PE CTA 07/27/2025 7:05 PM FINDINGS: Lungs: Hyperinflation. No consolidation. Pleural spaces: Unremarkable. No pleural effusion. No pneumothorax. Heart/Mediastinum: Unremarkable. No cardiomegaly. Bones/joints: Cervical spine and left humeral hardware and evidence of prior right rotator cuff repair. IMPRESSION: No acute findings. Thank you for allowing us to participate in the care of your patient. Dictated and Authenticated by: Kia Gupta MD Related Data Home Medications ?Medication ?Instructions ?Recorded ?Confirmed ketoconazole 2 % topical cream 1 applic topical DAILY #120 grams 11/14/23 08/30/25 simethicone 80 mg chewable tablet 80 mg PO TID-QID PRN abdominal 07/03/24 08/30/25 (Gas Relief (simethicone)) distention #40 tabs duloxetine 60 mg capsule,delayed 60 mg PO DAILY #90 caps 12/12/24 08/30/25 release pravastatin 40 mg tablet See Rx Instructions .Route 01/20/25 08/30/25 .COMPLEX #90 tabs mirtazapine 30 mg tablet 30 mg PO QHS #90 tabs 02/05/25 08/30/25 acetaminophen 650 mg 650 mg PO BID PRN 02/18/25 08/30/25 tablet,extended release (Tylenol Arthritis Pain) ibuprofen 200 mg capsule 200 mg PO BID PRN 02/18/25 08/30/25 celecoxib 200 mg capsule See Rx Instructions .Route 02/24/25 08/30/25 .COMPLEX #90 caps potassium chloride 10 mEq See Rx Instructions .Route 02/24/25 08/30/25 capsule,extended release .COMPLEX #90 caps cetirizine 10 mg tablet See Rx Instructions .Route 03/24/25 08/30/25 .COMPLEX #90 tabs spironolactone 25 mg tablet See Rx Instructions .Route 03/24/25 08/30/25 .COMPLEX #90 tabs magnesium oxide 400 mg (241.3 mg See Rx Instructions .Route 03/31/25 08/30/25 magnesium) tablet .COMPLEX #90 tabs amlodipine 2.5 mg tablet See Rx Instructions .Route 04/03/25 08/30/25 .COMPLEX #90 tabs ondansetron 4 mg disintegrating 4 mg PO DAILY PRN nausea and 05/15/25 08/30/25 tablet vomiting #90 tabs famotidine 20 mg tablet (Pepcid) 20 mg PO BID #14 tabs 05/19/25 08/30/25 albuterol sulfate 90 mcg/actuation 2 puff inhalation Q6H PRN 06/19/25 08/30/25 aerosol inhaler (Ventolin HFA) shortness of breath or wheezing #8.5 grams pregabalin 225 mg capsule 225 mg PO BID #60 caps 07/11/25 08/30/25 prednisone 20 mg tablet 40 mg (2 x 20 mg) PO DAILY #8 tabs 07/29/25 08/30/25 pantoprazole 20 mg tablet,delayed See Rx Instructions .Route 08/27/25 08/30/25 release .COMPLEX #180 tabs docusate sodium 100 mg capsule 100 mg PO BID #60 caps 08/30/25 (Colace) morphine 15 mg tablet,extended 15 mg PO Q12H #12 tabs 08/30/25 release ondansetron 4 mg disintegrating 4 mg PO Q6H PRN #30 tabs 08/30/25 tablet Previous Rx's ?Medication ?Instructions ?Recorded ketoconazole 2 % topical cream 1 applic topical DAILY #120 grams 11/14/23 simethicone 80 mg chewable tablet 80 mg PO TID-QID PRN abdominal 07/03/24 (Gas Relief (simethicone)) distention #40 tabs duloxetine 60 mg capsule,delayed 60 mg PO DAILY #90 caps 12/12/24 release pravastatin 40 mg tablet See Rx Instructions .Route 01/20/25 .COMPLEX #90 tabs mirtazapine 30 mg tablet 30 mg PO QHS #90 tabs 02/05/25 celecoxib 200 mg capsule See Rx Instructions .Route 02/24/25 .COMPLEX #90 caps potassium chloride 10 mEq See Rx Instructions .Route 02/24/25 capsule,extended release .COMPLEX #90 caps cetirizine 10 mg tablet See Rx Instructions .Route 03/24/25 .COMPLEX #90 tabs spironolactone 25 mg tablet See Rx Instructions .Route 03/24/25 .COMPLEX #90 tabs magnesium oxide 400 mg (241.3 mg See Rx Instructions .Route 03/31/25 magnesium) tablet .COMPLEX #90 tabs amlodipine 2.5 mg tablet See Rx Instructions .Route 04/03/25 .COMPLEX #90 tabs ondansetron 4 mg disintegrating 4 mg PO DAILY PRN nausea and 05/15/25 tablet vomiting #90 tabs famotidine 20 mg tablet (Pepcid) 20 mg PO BID #14 tabs 05/19/25 albuterol sulfate 90 mcg/actuation 2 puff inhalation Q6H PRN 06/19/25 aerosol inhaler (Ventolin HFA) shortness of breath or wheezing #8.5 grams pregabalin 225 mg capsule 225 mg PO BID #60 caps 07/11/25 prednisone 20 mg tablet 40 mg (2 x 20 mg) PO DAILY #8 tabs 07/29/25 pantoprazole 20 mg tablet,delayed See Rx Instructions .Route 08/27/25 release .COMPLEX #180 tabs docusate sodium 100 mg capsule 100 mg PO BID #60 caps 08/30/25 (Colace) morphine 15 mg tablet,extended 15 mg PO Q12H #12 tabs 08/30/25 release ondansetron 4 mg disintegrating 4 mg PO Q6H PRN #30 tabs 08/30/25 tablet Allergies Allergy/AdvReac Type Severity Reaction Status Date / Time ciprofloxacin Allergy Other (See Verified 08/30/25 09:35 Comment) codeine AdvReac Intermediate Nausea Verified 08/30/25 09:35 nitrofurantoin AdvReac Intermediate bloating, Verified 08/30/25 09:35 weakness oxycodone AdvReac Intermediate GI issues Verified 08/30/25 09:35 hydrochlorothiazide AdvReac Mild hypomagnese Verified 08/30/25 09:35 pop narcotics AdvReac Intermediate Nausea, Uncoded 08/30/25 09:35 vomiting General Stated Complaint: GenMedical ROSENDO: 3 Course Vital Signs Vital signs: Vital Signs Temperature 36.8 C 08/30/25 09:30 Pulse 88 08/30/25 09:30 Respiratory Rate 18 08/30/25 09:30 Blood Pressure 191/73 H 08/30/25 09:30 Pulse Oximetry 98 08/30/25 09:30 Temperature 36.8 C 08/30/25 09:37 Temperature Source Oral 08/30/25 09:37 Pulse 88 08/30/25 09:37 Respiratory Rate 22 08/30/25 09:52 Respiratory Effort Normal 08/30/25 09:52 Respiratory Depth Normal 08/30/25 09:52 Respiratory Pattern Normal 08/30/25 09:52 Blood Pressure 191/73 H 08/30/25 09:37 Pulse Oximetry 98 08/30/25 09:37 Lab/Test Results Lab/Test Results: Laboratory Tests Range/Units 08/30/25 08/30/25 09:41 09:50 WBC (4.4-10.8) 10^3/uL 6.88 RBC (3.93-5.22) 10^6/uL 4.28 Hgb (11.2-15.7) g/dL 11.8 Hct (36.0-46.0) % 36.2 MCV (80-95) fL 85 MCH (27.0-33.0) pg 27.6 MCHC (32.0-36.0) % 32.6 RDW (11.7-14.6) % 14.2 Plt Count (130-400) 10^3/uL 247 MPV (8.0-11.0) fL 10.2 Immature Gran % % 0.3 Neutrophils % % 74.9 Lymphocytes % % 17.9 Monocytes % % 6.0 Eosinophils % % 0.6 Basophils % % 0.3 Nucleated RBC % (0.0-0.3) % 0.0 Absolute Neutrophils (1.2-6.7) 10^3/uL 5.16 Absolute Lymphocytes (1.2-3.4) 10^3/uL 1.23 Absolute Monocytes (0.1-0.8) 10^3/uL 0.41 Absolute Eosinophils (0.0-0.7) 10^3/uL 0.04 Absolute Basophils (0.0-0.2) 10^3/uL 0.02 VBG pH (7.31-7.41) 7.46 H VBG pCO2 (41-51) mmHg 35 L VBG pO2 mmHg 44 VBG HCO3 (23-28) mmol/L 25 VBG Total CO2 (24-29) mmol/L 23 L VBG O2 Saturation % 84 VBG Base Excess (-2-3) mmol/L 1 Sodium (136-145) mmol/L 135 L Potassium (3.5-5.1) mmol/L 3.3 L Chloride (98-107) mmol/L 101 Carbon Dioxide (20.0-31.0) mmol/L 24.1 Anion Gap (3-11) mmol/L 9.9 BUN (9-23) mg/dL 17 Creatinine (0.55-1.02) mg/dL 0.65 Est GFR (CKD-EPI 2020) (mL/min/1.73m2) 88.73 Glucose (74-106) mg/dL 100 Calcium (8.3-10.6) mg/dL 9.3 Magnesium (1.6-2.6) mg/dL 1.6 Total Bilirubin (0.2-1.2) mg/dL 0.70 AST (<34) U/L 23 ALT (10-49) U/L 12 Alkaline Phosphatase (46-116) U/L 108 Troponin I (<35) ng/L 3 NT-Pro-B Natriuret Pep (<300) pg/mL 821 H Total Protein (5.7-8.2) g/dL 7.3 Albumin (3.2-5.0) g/dL 4.2 Lipase (<53) U/L 36 COVID-19 Source Nasopharynx SARS-CoV-2 (PCR) (Negative) Negative Influenza Type A (PCR) (Negative) Negative Influenza Type B (PCR) (Negative) Negative RSV (PCR) (Negative) Negative Medical Decision Making Quality:SDOH Health Related Social Needs: Health related social needs risk of homeless house/econ circumstance lonely/isolated education Health related social needs details so far im good PFSH All Active Problems (Updated 08/30/25 @ 12:10 by Mikey Hemphill MD) Neck pain (Acute) Back pain (Acute) Chronic pain (Chronic) Acute hypoxic respiratory failure (Acute) Bilateral shoulder pain (Acute) Chronic nausea (Acute) Ondansetron effective Multifocal pneumonia (Acute) Acute exacerbation of chronic obstructive pulmonary disease (COPD) (Acute) Pulmonary nodules/lesions, multiple (Acute ~04/2025) Advanced care planning/counseling discussion (Acute) Palliative care encounter (Acute) Weight loss (Acute) PVD (peripheral vascular disease) (Chronic) Pain in both feet (Acute) Onychomycosis (Acute) High risk for fracture due to osteoporosis by DEXA scan (Acute ~03/2023) RX Fosamax Poor manual dexterity (Acute) Lung nodule seen on imaging study (Acute ~10/2022) Annual LDCT Impaired gait and mobility (Acute) DDD (degenerative disc disease), lumbar (Acute) [place]; neurosurg Nail dystrophy (Acute) Ulnar neuropathy at elbow of left upper extremity (Acute) Peripheral neuropathy (Acute 07/01/14) Paresthesias (Chronic) Spasticity (Acute) Coordination impairment (Acute 07/05/16) Spinal stenosis, other region (Acute 12/14/11) 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; cervical spondylosis; operated 08/03/16 Cervical myelopathy (Chronic) Spinal stenosis, lumbar region without neurogenic claudication (Acute 12/14/11) Osteoarthritis of spine with radiculopathy, cervical region (Acute 09/05/11) Sacroiliac joint dysfunction of right side (Acute) Spinal stenosis of lumbar region with radiculopathy (Acute) 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 Dr Velazco, [place] [facility] [place] [facility] [place] cardiac risk >20% in next 10 years (Chronic) 2020: 32% Magnesium-losing nephropathy (Chronic) very mild; tx spironolactone GERD (gastroesophageal reflux disease) (Chronic) Medical marijuana use (Chronic) Arthritis of left glenohumeral joint (Chronic ~07/01/14) Medical History Abnormal weight loss Urothelial carcinoma of bladder (~2016) [facility] Leg edema Osteopenia (12/14/11) Osteoporosis wrist, osteopenia hip, normal bone density of spine 2016 osteopenia 2011 CHF exacerbation Acute cystitis Pneumonia Acute UTI Weakness Acute UTI Anemia Smoker Unintentional weight loss Delayed gastric emptying mild Hyperlipidemia Neuropathy Sessile colonic polyp (03/14/18) Adhesive capsulitis of left shoulder Injected 12/11/2018 Spinal stenosis Hx of bacterial pneumonia Surgical History H/O laminectomy (~06/2021) APD-L3-L4 laminectomy, medial fa for decompression of stenosis, lateral disectomy [id number] Cervical spondylosis 11/03/20 C5-[address] Everett Cardoza Day 11/04/20 D/C'd home Status post shoulder hemiarthroplasty History of hemiarthroplasty of left shoulder 09/07/2015 H/O cystoscopy (09/06/18) w/transurethral resection of bladder tumors-Dr Wiggins Tenotomy and debridement tendon L shoulder (10/25/17) Rotator Cuff Repair Repair of umbilical hernia Hemiarthroplasty (09/07/15) L shoulder Dr Luz Colonoscopy - MAC (03/12/18) Colon,transverse,polyp,biopsy - fragment of sessile serrated adenoma. (Dr Neely) Breast, Lumpectomy Arthroplasty of knee Per patient she has not had a TOTAL KNEE Anterior Fusion Cervical Spine C3-C5 (07/31/16) Jul 2016, [place] [facility] [place] Dr. Martinez Family History Father Essential hypertension Glaucoma Alzheimer's dementia Social History Smoking/Tobacco Use Status: Former Tobacco Use Quit Date: 02/10/25 Smoking risk assessment performed?: Yes Alcohol Intake: former Drug use: Daily Substance use type: marijuana Details: marijuana: uses qd Last used Monday09/30/23 Household members: none Housing: house Number of Children: 0 Pets and animals: Yes Pets and animals: cat(s) and dog(s) Current gender identity: female What type of physical activity do you participate in: none and other Details: PT 2 xweek Frequency: 1-2 times per week Seatbelt use: 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
--- NOTE | 2025-08-30 10:55 | DI.VRAD_ITS ---
PROCEDURE INFORMATION: Exam: XR Chest Exam date and time: 08/30/2025 10:36 AM Age: 75 years old Clinical indication: Shortness of breath TECHNIQUE: Imaging protocol: Radiologic exam of the chest. Views: 2 views. COMPARISON: CT CHEST PE CTA 07/27/2025 7:05 PM FINDINGS: Lungs: Hyperinflation. No consolidation. Pleural spaces: Unremarkable. No pleural effusion. No pneumothorax. Heart/Mediastinum: Unremarkable. No cardiomegaly. Bones/joints: Cervical spine and left humeral hardware and evidence of prior right rotator cuff repair. IMPRESSION: No acute findings. Dictated and Authenticated by: Kia Gupta MD. Orderin Kanchan Jensen MD
[2025-08-30 11:20] LABS: Troponin I 4 ng/L (<35)
[2025-08-30 11:54] LABS: Glucose Negative (Negative)
[2025-08-30 12:06] LABS: C & S Indicated? No; RBC Negative HPF (0-2); WBC Negative HPF (0-5)
[2025-08-30] MEDS: MORPHine CR 15 MG TABCR PO (12:07)
[2025-08-30 12:50] VITALS: BP 143/91; PULSE 79; RESP 20; O2SAT 95
== END 2025-08-30 12:16 | disposition home or self-care (01) ==
PROVIDERS: Emergency Provider General Practice; PCP Nurse Practitioner Adult Health
DX: M54.2 Cervicalgia (principal); M54.9 Dorsalgia, unspecified; M25.511 Pain in right shoulder; M25.512 Pain in left shoulder; G89.29 Other chronic pain; Z59.811 Housing instability, housed, with risk of homelessness; Z59.89 Other problems related to housing and economic circumstances; Z60.8 Other problems related to social environment
CPT/HCPCS: 36415; 80053; 82805; 83690; 87637; 93005; 96374; 96375; 99284; 71046; 81003; 81015; 83735; 83880; 84484; 85025; 93010; J2270; J2405; J2470

== ENCOUNTER 2025-08-31 16:08 | Emergency (ER) | payer MEDICARE, MEDICAID, SELFPAY ==
--- NOTE | 2025-08-31 16:30 | RT.EKG_ITS ---
APPROVED REPORT Exam: Resting ECG Reason for Exam: difficulty breathing Patient Location: E HR:69 bpm ECG Measurements Heart Rate 69 AXIS NM 137 P 77 QRSd 75 QRS 68 QT 430 T 43 QTc 459 Conclusion Sinus rhythm, rate 69 No interval abnormalities No STEMI No significant changes from priors
[2025-08-31 16:31] VITALS: BP 163/81; PULSE 93; RESP 18; TEMP 36.6; O2SAT 95
--- NOTE | 2025-08-31 17:49 | ED.GENADUL_ITS ---
Discharge Plan Disposition Patient Disposition: Home Discharge Details Clinical Impression: Bilateral shoulder pain, Chronic pain, Abdominal discomfort Primary Care Provider: Chanel Nelson ED Provider: Maryjane Curry Home Meds and New Rx's Prescriptions: No Action acetaminophen [Tylenol Arthritis Pain] 650 mg tablet extended release 650 mg PO BID PRN ketoconazole 2 % cream 1 applic topical DAILY Qty: 120 6RF Rx Instructions: Apply to toenails once daily simethicone [Gas Relief (simethicone)] 80 mg tablet,chewable 80 mg PO TID-QID PRN (Reason: abdominal distention) Qty: 40 0RF Rx Instructions: Bloating, bubbling/gas in abdomen ibuprofen 200 mg capsule 200 mg PO BID PRN ondansetron 4 mg tablet,disintegrating 4 mg PO DAILY PRN (Reason: nausea and vomiting) Qty: 90 3RF albuterol sulfate [Ventolin HFA] 90 mcg/actuation HFA aerosol inhaler 2 puff inhalation Q6H PRN (Reason: shortness of breath or wheezing) Qty: 8.5 3RF pregabalin 225 mg capsule 225 mg PO BID Qty: 60 0RF Rx Instructions: Dose increase back to baseline Neuro dosing 10/10/2024 duloxetine 60 mg capsule,delayed release(DR/EC) 60 mg PO DAILY Qty: 90 3RF pravastatin 40 mg tablet See Rx Instructions .ROUTE .COMPLEX Qty: 90 3RF Dose Instruction: TAKE 1 TABLET EVERY DAY Rx Instructions: TAKE 1 TABLET EVERY DAY mirtazapine 30 mg tablet 30 mg PO QHS Qty: 90 3RF celecoxib 200 mg capsule See Rx Instructions .ROUTE .COMPLEX Qty: 90 3RF Dose Instruction: TAKE 1 CAPSULE EVERY DAY IN THE MORNING WITH FOOD FOR CHRONIC SPINE PAIN (CERVICAL AND LUMBAR) Rx Instructions: TAKE 1 CAPSULE EVERY DAY IN THE MORNING WITH FOOD FOR CHRONIC SPINE PAIN (CERVICAL AND LUMBAR) potassium chloride 10 mEq capsule, extended release See Rx Instructions .ROUTE .COMPLEX Qty: 90 3RF Dose Instruction: TAKE 1 CAPSULE EVERY DAY Rx Instructions: TAKE 1 CAPSULE EVERY DAY spironolactone 25 mg tablet See Rx Instructions .ROUTE .COMPLEX Qty: 90 3RF Dose Instruction: TAKE 1 TABLET EVERY DAY FOR MAGNESIUM WASTING Rx Instructions: TAKE 1 TABLET EVERY DAY FOR MAGNESIUM WASTING cetirizine 10 mg tablet See Rx Instructions .ROUTE .COMPLEX Qty: 90 0RF Dose Instruction: TAKE 1 TABLET ONE TO TWO TIMES PER DAY. TAKE LOWEST EFFECTIVE DOSE Rx Instructions: TAKE 1 TABLET ONE TO TWO TIMES PER DAY. TAKE LOWEST EFFECTIVE DOSE magnesium oxide 400 mg (241.3 mg magnesium) tablet See Rx Instructions .ROUTE .COMPLEX Qty: 90 3RF Dose Instruction: TAKE 1 TABLET EVERY DAY Rx Instructions: TAKE 1 TABLET EVERY DAY amlodipine 2.5 mg tablet See Rx Instructions .ROUTE .COMPLEX Qty: 90 3RF Dose Instruction: TAKE 1 TABLET EVERY DAY Rx Instructions: TAKE 1 TABLET EVERY DAY pantoprazole 20 mg tablet,delayed release (DR/EC) See Rx Instructions .ROUTE .COMPLEX Qty: 180 3RF Dose Instruction: TAKE 1 TABLET TWICE DAILY FOR REFLUX Rx Instructions: TAKE 1 TABLET TWICE DAILY FOR REFLUX famotidine [Pepcid] 20 mg tablet 20 mg PO BID Qty: 14 0RF morphine 15 mg tablet extended release 15 mg PO Q12H Qty: 12 0RF docusate sodium [Colace] 100 mg capsule 100 mg PO BID Qty: 60 0RF ondansetron 4 mg tablet,disintegrating 4 mg PO Q6H PRNQty: 30 0RF prednisone 20 mg Tablet 40 mg PO DAILY Qty: 8 0RF Discharge Instructions Additional Instructions: Please call your primary care provider first thing tomorrow morning to schedule follow-up appointment. I strongly recommend you have further outpatient evaluation to look into the cause your symptoms. This may include physical therapy, colonoscopy/endoscopy, or other specialist referral. Continue to use your pain medications including Tylenol and topicals for your shoulder pain. Be sure to drink plenty of electrolyte rich fluids throughout the day. Gatorlyte or Pedialyte is a good option. Eat small, frequent meals throughout the day. Return to emergency care if develop new chest pain, difficulty breathing, episodes of passing out, uncontrollable vomiting, severe abdominal pain, or if you are very worried and need to be rechecked again immediately Stand Alone Forms: Portal Information Referrals: Chanel Nelson NP [Primary Care Provider, Medicine] [facility] General Date/Time Provider Initiated Documentation: 08/31/25 16:13 . HPI Narrative: Belén is a 75-year-old female who presents to the emergency department today for evaluation of bilateral shoulder pain accompanied by increased cough, chest discomfort with movement, and shortness of breath x 3 days. Last night she had trouble sleeping, had hot sweats and chills all night. For the last week she has also had diffuse abdominal discomfort. She reports that the shoulder pain is chronic, has been ongoing since she was diagnosed with pneumonia in April. She feels like it is especially bothersome when she has does not really pull herself up or use her arms. She reports that felt somewhat better after being hospitalized in early July for COPD exacerbation, but has since returned. She also reports chronic nausea. She denies recorded fever, headache, jaw claudication, vision changes, hearing changes, difficulty swallowing, vomiting, blood in stool or urine, dysuria. Does admit to soft stools. She has been evaluated in the emergency department multiple times for similar symptoms, most recently yesterday. PMH significant for COPD, osteoporosis, degenerative joint disease, spinal stenosis, osteoarthritis, GERD. SH significant for cervical spinal fusion, rotator cuff repairs, shoulder hemiarthroplasty, umbilical hernia Related Data Home Medications ?Medication ?Instructions ?Recorded ?Confirmed ketoconazole 2 % topical cream 1 applic topical DAILY #120 grams 11/14/23 08/31/25 simethicone 80 mg chewable tablet 80 mg PO TID-QID PRN abdominal 07/03/24 08/31/25 (Gas Relief (simethicone)) distention #40 tabs duloxetine 60 mg capsule,delayed 60 mg PO DAILY #90 ca ps 12/12/24 08/31/25 release pravastatin 40 mg tablet See Rx Instructions .Route 0 01/20/25 08/31/25 .COMPLEX #90 tabs mirtazapine 30 mg tablet 30 mg PO QHS #90 tabs 08/31/25 acetaminophen 650 mg 650 mg PO BID PRN 02/18/25 1 11/01/24 tablet,extended release (Tylenol Arthritis Pain) ibuprofen 200 mg capsule 200 mg PO BID PRN 02/18/25 1 11/01/24 celecoxib 200 mg capsule See Rx Instructions .Route 0 02/24/25 08/31/25 .COMPLEX #90 caps potassium chloride 10 mEq See Rx Instructions .Route 0 02/24/25 08/31/25 capsule,extended release .COMPLEX #90 caps cetirizine 10 mg tablet See Rx Instructions .Route 0 03/24/25 08/31/25 .COMPLEX #90 tabs spironolactone 25 mg tablet See Rx Instructions .Route 03/24/25 08/31/25 .COMPLEX #90 tabs magnesium oxide 400 mg (241.3 mg See Rx Instructions . Route 03/31/25 08/31/25 magnesium) tablet .COMPLEX #90 tabs amlodipine 2.5 mg tablet See Rx Instructions .Route 0 04/03/25 08/31/25 .COMPLEX #90 tabs ondansetron 4 mg disintegrating 4 mg PO DAILY PRN naus ea and 05/15/25 08/31/25 tablet vomiting #90 tabs famotidine 20 mg tablet (Pepcid) 20 mg PO BID #14 tabs 05/19/25 08/31/25 albuterol sulfate 90 mcg/actuation 2 puff inhalation Q 6H PRN 06/19/25 08/31/25 aerosol inhaler (Ventolin HFA) shortness of breath or wheezing #8.5 grams pregabalin 225 mg capsule 225 mg PO BID #60 caps 07/1108/31/25 prednisone 20 mg tablet 40 mg (2 x 20 mg) PO DAILY # 8 tabs 07/29/25 08/31/25 pantoprazole 20 mg tablet,delayed See Rx Instructions .Route 08/27/25 08/31/25 release .COMPLEX #180 tabs docusate sodium 100 mg capsule 100 mg PO BID #60 caps 08/30/25 08/31/25 (Colace) morphine 15 mg tablet,extended 15 mg PO Q12H #12 tabs 08/30/25 08/31/25 release ondansetron 4 mg disintegrating 4 mg PO Q6H PRN #30 ta bs 08/30/25 08/31/25 tablet Previous Rx's ?Medication ?Instructions ?Recorded ketoconazole 2 % topical cream 1 applic topical DAILY #120 grams 11/14/23 simethicone 80 mg chewable tablet 80 mg PO TID-QID PRN abdominal 07/03/24 (Gas Relief (simethicone)) distention #40 tabs duloxetine 60 mg capsule,delayed 60 mg PO DAILY #90 ca ps 12/12/24 release pravastatin 40 mg tablet See Rx Instructions .Route 0 01/20/25 .COMPLEX #90 tabs mirtazapine 30 mg tablet 30 mg PO QHS #90 tabs celecoxib 200 mg capsule See Rx Instructions .Route 0 02/24/25 .COMPLEX #90 caps potassium chloride 10 mEq See Rx Instructions .Route 0 02/24/25 capsule,extended release .COMPLEX #90 caps cetirizine 10 mg tablet See Rx Instructions .Route 0 03/24/25 .COMPLEX #90 tabs spironolactone 25 mg tablet See Rx Instructions .Route 03/24/25 .COMPLEX #90 tabs magnesium oxide 400 mg (241.3 mg See Rx Instructions . Route 03/31/25 magnesium) tablet .COMPLEX #90 tabs amlodipine 2.5 mg tablet See Rx Instructions .Route 0 04/03/25 .COMPLEX #90 tabs ondansetron 4 mg disintegrating 4 mg PO DAILY PRN naus ea and 05/15/25 tablet vomiting #90 tabs famotidine 20 mg tablet (Pepcid) 20 mg PO BID #14 tabs 05/19/25 albuterol sulfate 90 mcg/actuation 2 puff inhalation Q 6H PRN 06/19/25 aerosol inhaler (Ventolin HFA) shortness of breath or wheezing #8.5 grams pregabalin 225 mg capsule 225 mg PO BID #60 caps 07/11 prednisone 20 mg tablet 40 mg (2 x 20 mg) PO DAILY # 8 tabs 07/29/25 pantoprazole 20 mg tablet,delayed See Rx Instructions .Route 08/27/25 release .COMPLEX #180 tabs docusate sodium 100 mg capsule 100 mg PO BID #60 caps 08/30/25 (Colace) morphine 15 mg tablet,extended 15 mg PO Q12H #12 tabs 08/30/25 release ondansetron 4 mg disintegrating 4 mg PO Q6H PRN #30 ta bs 08/30/25 tablet Allergies Allergy/AdvReac Type Severity Reaction Status Date / Time ciprofloxacin Allergy Other (See Verified 08/31/25 16:37 Comment) codeine AdvReac Intermediate Nausea Verified 08/31/25 16:37 nitrofurantoin AdvReac Intermediate bloating, Verified 08/31/25 16:37 weakness oxycodone AdvReac Intermediate GI issues Verified 08/31/25 16:37 hydrochlorothiazide AdvReac Mild hypomagnese Verified 08/31/25 16:37 pop narcotics AdvReac Intermediate Nausea, Uncoded 08/31/25 16:37 vomiting General Stated Complaint: Recheck ROSENDO: 3 Exam Const General: cooperative, no acute distress, well groomed and frail appearing Nutritional Appearance: thin Orientation: alert and oriented x3 HENMT Head: normal to inspection and atraumatic Ears: hearing grossly normal bilaterally General nose exam: external nose normal Face and sinus: normal facial exam Mouth: oral mucosae normal, lip normal, tongue normal, oropharynx normal and moist mucous membranes Neck Neck: normal visual inspection and full ROM Chest Chest: normal inspection of the chest Resp Effort & Inspection: normal respiratory effort and able to speak in complete sentences Auscultation: clear to auscultation bilaterally Cardio Rate: regular rate Rhythm: regular rhythm GI Inspection: normal to inspection and non-distended Palpation: soft and tender (Diffuse) Auscultation: normal bowel sounds Back/Spine/Pelvis Back: no CVA tenderness Skin General skin exam: no rashes or lesions noted Extrem General: normal to inspection and full ROM Right upper extremity: shoulder/upper arm Details: tenderness; no swelling, no abrasions, no ecchymosis, no crepitus and no deformity Left upper extremity: shoulder/upper arm Details: tenderness; no swelling, no abrasions, no ecchymosis, no crepitus and no deformity Course Vital Signs Vital signs: Vital Signs Temperature 36.6 C 08/31/25 16:31 Pulse 93 H 08/31/25 16:31 Respiratory Rate 18 08/31/25 16:31 Blood Pressure 163/81 H 08/31/25 16:31 Pulse Oximetry 95 08/31/25 16:31 Temperature 36.6 C 08/31/25 16:31 Pulse 93 H 08/31/25 16:31 Respiratory Rate 18 08/31/25 16:31 Blood Pressure 163/81 H 08/31/25 16:31 Pulse Oximetry 95 08/31/25 16:31 Pain Level 7 08/31/25 16:31 Medical Decision Making Belén is a 75-year-old female who presents to the emergency department today for evaluation of bilateral shoulder pain accompanied by fatigue, increased cough, chest discomfort with movement, and shortness of breath x 3 days. Last night she had trouble sleeping, had hot sweats and chills all night. For the last week she has also had diffuse abdominal discomfort. She reports that the shoulder pain is chronic, has been ongoing since she was diagnosed with pneumonia in April. She feels like it is especially bothersome when she has does not really pull herself up or use her arms. She reports that felt somewhat better after being hospitalized in early July for COPD exacerbation, but has since returned. She also reports chronic nausea. She denies recorded fever, headache, jaw claudication, vision changes, hearing changes, difficulty swallowing, vomiting, blood in stool or urine, dysuria. Does admit to soft stools. She has been evaluated in the emergency department multiple times for similar symptoms, most recently yesterday. PMH significant for COPD, osteoporosis, degenerative joint disease, spinal stenosis, osteoarthritis, GERD. SH significant for cervical spinal fusion, rotator cuff repairs, shoulder hemiarthroplasty, umbilical hernia Physical exam remarkable for mild diffuse tenderness with palpation of abdomen, abdomen is soft, nondistended with normal active bowel sounds. Diffuse shoulder pain is able to be elicited with pulling herself to sit up. Easy work of breathing, no adventitious lung sounds. Occasional congested cough. Normal heart sounds, regular rate and rhythm. DDx includes but is not limited to: Viral illness, pneumonia, cardiac arrhythmia, ACS, symptomatic anemia, CHF, electrolyte imbalance, polymyalgia rheumatica, RA, tickborne illness, cervical radiculopathy, rotator cuff disease, malignancy. No red flags concerning for septic arthritis. I independently interpreted the following tests: CBC shows anemia unchanged from baseline. VBG, sed rate/CRP, BNP, serial troponins, lipase, CMP all unremarkable. COVID/flu/RSV negative. D-dimer was noted to be elevated. CTA chest and CT abdomen/pelvis performed, no acute findings noted. While in the emergency department Belén was able to eat half of a sandwich, no nausea or vomiting. Overall workup today reassuring. Unclear etiology of findings, recommend further evaluation with PCP for further evaluation/management of bilateral shoulder pain, general malaise, and abdominal discomfort. Reviewed discharge instructions patient, including importance of follow-up with PCP, symptomatic management, and red flags indicating need for return to emergency care. Imaging Data Radiologic Study: Radiologist's impression: PROCEDURE INFORMATION: Exam: CTA Chest With Contrast CTA Abdomen and Pelvis With Contrast Exam date and time: 08/31/2025 8:20 PM Age: 75 years old Clinical indication: Abdominal pain; Generalized; Prior surgery; Surgery date: 6+ months; Surgery type: Hernia repair, shoulder repair, lumpectomy, spinal surgery; Bilat shoulder and abd pain, HX of bladder CA TECHNIQUE: Imaging protocol: Computed tomographic angiography of the chest with contrast. Exam focused on the arteries. Computed tomographic angiography of the abdomen and pelvis with contr ast. Exam focused on the arteries. 3D rendering (Not supervised by radiologist): MIP and/or 3D reconstructed images were created by the technologist. Radiation optimization: All CT scans at this facility use at least one of these dose optimization techniques: automated exposure control; mA and/or kV adjustment per patient size (includes targeted exams where dose is matched to clinical indication); or iterative reconstruction. Contrast material: OMNIPAQUE 350; Contrast volume: 60 ml; Contrast route: INTRAVENOUS (IV); COMPARISON: CT CHEST PE CTA 07/27/2025 7:05 PM FINDINGS: Tubes, catheters and devices: Left shoulder prosthesis. VASCULATURE: Pulmonary arteries: No evidence of pulmonary embolism. Aorta: Moderate atherosclerotic calcifications of the thoracic aorta. There is moderate diffuse atherosclerotic disease of the abdominal aorta. Celiac and mesenteric arteries: No occlusion or significant stenosis. Renal arteries: No occlusion or significant stenosis. Right iliac arteries: No occlusion or significant stenosis. Left iliac arteries: No occlusion or significant stenosis. CHEST: Trachea: The central airways clear. Lungs: There is diffuse pulmonary emphysema. Linear bibasilar opacities most consistent with subsegmental atelectasis. Pleural spaces: Unremarkable. No pneumothorax. No pleural effusion. Heart: No cardiomegaly or pericardial effusion. ABDOMEN AND PELVIS: Liver: The liver is unremarkable. Gallbladder and biliary ducts: No gallstones. Nondistended. No wall thickening. Pancreas: The pancreas is unremarkable. Spleen: Multiple calcified granulomas noted in the spleen. No splenomegaly. Adrenal glands: The adrenal glands are unremarkable. Kidneys and ureters: Stable renal cysts. Stomach and bowel: Moderate stool throughout the colon and rectum. Appendix: Normal appendix. Intraperitoneal space: Unremarkable. No free air. No significant fluid collection. Urinary bladder: Unremarkable. No mass. Reproductive: Degenerating fibroid within the uterus. Lymph nodes: No axillary adenopathy. Bones/joints: The lumbar spine demonstrates moderate degenerative changes at multiple levels. No acute fracture. Soft tissues: Soft tissues are unremarkable as visualized. Soft tissues are unremarkable as visualized. IMPRESSION: No evidence of pulmonary embolism. No acute findings. Chronic noncritical findings as described above Quality:SDPA Health Related Social Needs: Health related social needs risk of homeless house/eco n circumstance lonely/isolated education Health related social needs details so far im good PFSH All Active Problems (Updated 08/31/25 @ 21:46 by Maryjane Sampson) Abdominal discomfort (Acute) Neck pain (Acute) Back pain (Acute) Chronic pain (Chronic) Acute hypoxic respiratory failure (Acute) Bilateral shoulder pain (Acute) Chronic nausea (Acute) Ondansetron effective Multifocal pneumonia (Acute) Acute exacerbation of chronic obstructive pulmonary disease (COPD) (Acute) Pulmonary nodules/lesions, multiple (Acute ~04/2025) Advanced care planning/counseling discussion (Acute) Palliative care encounter (Acute) Weight loss (Acute) PVD (peripheral vascular disease) (Chronic) Pain in both feet (Acute) Onychomycosis (Acute) High risk for fracture due to osteoporosis by DEXA scan (Acute ~03/2023) RX Fosamax Poor manual dexterity (Acute) Lung nodule seen on imaging study (Acute ~10/2022) Annual LDCT Impaired gait and mobility (Acute) DDD (degenerative disc disease), lumbar (Acute) Pikus; neurosurg Nail dystrophy (Acute) Ulnar neuropathy at elbow of left upper extremity (Acute) Peripheral neuropathy (Acute 07/01/14) Paresthesias (Chronic) Spasticity (Acute) Coordination impairment (Acute 07/05/16) Spinal stenosis, other region (Acute 12/14/11) 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; cervical spondylosis; operated 08/03/16 Cervical myelopathy (Chronic) Spinal stenosis, lumbar region without neurogenic claudication (Acute 12/14/11) Osteoarthritis of spine with radiculopathy, cervical region (Acute 09/05/11) Sacroiliac joint dysfunction of right side (Acute) Spinal stenosis of lumbar region with radiculopathy (Acute) 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 Dr [place] [facility] [place] cardiac risk >20% in next 10 years (Chronic) 2020: 32% Magnesium-losing nephropathy (Chronic) very mild; tx spironolactone GERD (gastroesophageal reflux disease) (Chronic) Medical marijuana use (Chronic) Arthritis of left glenohumeral joint (Chronic ~07/01/14) Medical History Abnormal weight loss Urothelial carcinoma of bladder (~2016) [facility] Leg edema Osteopenia (12/14/11) Osteoporosis wrist, osteopenia hip, normal bone density of spine 2016 osteopenia 2011 CHF exacerbation Acute cystitis Pneumonia Acute UTI Weakness Acute UTI Anemia Smoker Unintentional weight loss Delayed gastric emptying mild Hyperlipidemia Neuropathy Sessile colonic polyp (03/14/18) Adhesive capsulitis of left shoulder Injected 12/11/2018 Spinal stenosis Hx of bacterial pneumonia Surgical History H/O laminectomy (~06/2021) APD-L3-L4 laminectomy, medial fa for decompression of stenosis, lateral disectomy [id number] Cervical spondylosis 11/03/20 C5-[address] Everett Cardoza Day 11/04/20 D/C'd home Status post shoulder hemiarthroplasty History of hemiarthroplasty of left shoulder 09/07/2015 H/O cystoscopy (09/06/18) w/transurethral resection of bladder tumors-Dr Wiggins Tenotomy and debridement tendon L shoulder (10/25/17) Rotator Cuff Repair Repair of umbilical hernia Hemiarthroplasty (09/07/15) L shoulder Dr Luz Colonoscopy - MAC (03/12/18) Colon,transverse,polyp,biopsy - fragment of sessile serrated adenoma. (Dr Neely) Breast, Lumpectomy Arthroplasty of knee Per patient she has not had a TOTAL KNEE Anterior Fusion Cervical Spine C3-C5 (07/31/16) Jul [place] [facility] Family History Father Essential hypertension Glaucoma Alzheimer's dementia Social History Smoking/Tobacco Use Status: Former Tobacco Use Quit Date: 02/10/25 Smoking risk assessment performed?: Yes Alcohol Intake: former Drug use: Daily Substance use type: marijuana Details: marijuana: uses qd Last used Monday08/30/25 Household members: none Housing: house Number of Children: 0 Pets and animals: Yes Pets and animals: cat(s) and dog(s) Current gender identity: female What type of physical activity do you participate in: none and other Details: PT 2 xweek Frequency: 1-2 times per week Seatbelt use: always 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
[2025-08-31 18:00] LABS: BE (Venous) 1 mmol/L (-2-3); HCO3 (Venous) 26 mmol/L (23-28); O2 Sat (Venous) 77 %; TCO2 (Venous) 24 mmol/L (24-29); pCO2 (Venous) 42 mmHg (41-51); pO2 (Venous) 41 mmHg
[2025-08-31 18:06] LABS: Lab Add On Test DONE
[2025-08-31 18:13] LABS: ESR 7 mm/hr (0-30)
[2025-08-31 18:14] LABS: Abs Immature Grans 0.02 10^3/uL (0.0-0.06); HCT 34.3 % (36.0-46.0); HGB 11.1 g/dL (11.2-15.7); Immature Grans % 0.3 %; MCH 27.5 pg (27.0-33.0); MCHC 32.4 % (32.0-36.0); MCV 85 fL (80-95); MPV 10.2 fL (8.0-11.0); Platelet Count 223 10^3/uL (130-400); RBC 4.03 10^6/uL (3.93-5.22); RDW 14.3 % (11.7-14.6); RDW-SD 44.2 fL; WBC 7.94 10^3/uL (4.4-10.8)
[2025-08-31 18:25] LABS: C-Reactive Protein < 0.50 mg/dL (<=0.50)
[2025-08-31 18:26] LABS: Magnesium 1.7 mg/dL (1.6-2.6)
[2025-08-31 18:27] LABS: Lipase 41 U/L (<53); Troponin I 3 ng/L (<35)
[2025-08-31 18:28] LABS: ALT 12 U/L (10-49); AST 23 U/L (<34); Albumin 4.0 g/dL (3.2-5.0); Alkaline Phosphatase 97 U/L (46-116); Anion Gap 9.5 mmol/L (3-11); BUN 23 mg/dL (9-23); Bilirubin, Total 0.40 mg/dL (0.2-1.2); CO2 24.5 mmol/L (20.0-31.0); Calcium 9.0 mg/dL (8.3-10.6); Chloride 104 mmol/L (98-107); Glucose 84 mg/dL (74-106); Potassium 3.4 mmol/L (3.5-5.1); Sodium 138 mmol/L (136-145); Total Protein 6.7 g/dL (5.7-8.2)
[2025-08-31 18:44] LABS: COVID-19 PCR Negative (Negative); RSV PCR Negative (Negative)
[2025-08-31 19:32] LABS: D-Dimer 953 ng/mlFEU (<500)
--- NOTE | 2025-08-31 19:45 | DI.CT_ITS ---
Exam(s) CT CHEST PE ABD PELVIS W EXAM: CT CHEST PE ABD PELVIS W CLINICAL HISTORY: bilat shoulder pain, abd pain. TECHNIQUE: Imaging Protocol: Axial computed tomography images with coronal and sagittal reformatted images were created and reviewed. Computer aided detection (CAD) was utilized. CONTRAST MATERIAL: Intravenous: Omnipaque 350 Contrast volume:60 ml Oral: no COMPARISON: CT CT CHEST/ABD/PEL W from 05/19/[address] CHEST PE CTA from 07/27/2025 FINDINGS: CHEST: Pulmonary parenchyma: [id number] emphysematous changes. Mild respiratory motion. No consolidation. Stable 6 millimeter nodule left lower lobe. Tracheobronchial tree: No bronchiectasis. No mucous plugging.No bronchial wall thickening. Pleura: No effusion or pneumothorax. Mediastinum: Within normal limits. Pulmonary arteries: No visible emboli. Cardiovascular: Normal heart size. Severe coronary artery calcifications. No pericardial effusion. Thoracic aorta non-dilated. Moderate 2 severe atherosclerotic changes. Bones: Left shoulder prosthesis. Scoliosis and degenerative changes. Hardware in the lower cervical spine. No lytic or blastic lesions. No compression fractures. Soft tissues: Unremarkable. ABDOMEN and PELVIS: Liver: Normal density. No suspicious mass. Gallbladder and biliary tract: No evidence of stones or wall thickening. No biliary dilatation. Pancreas: Normal density, no abnormal calcifications or inflammatory process. Spleen: Norm normal size. Calcified granulomas. Kidneys: Normal size, contour and axis. No radiodense stones. No obstructive uropathy. Stable renal cysts. No follow-up recommended. No suspicious masses seen. Adrenal glands: No masses seen. Aorta: Abdominal portion non-dilated. severe atherosclerotic changes. Significant calcification in the SMA causing multifocal stenosis of approximately 50 percent. Lymph nodes: Within normal limits. Soft tissues: Unremarkable. Bladder: Unremarkable. Bowel: No obstruction or bowel wall thickening. Appendix normal. Moderate quantity of stool. Peritoneal cavity: Small amount of fluid in the low pelvis. No focal collection. No mesenteric inflammatory response. No free air. Bones: Bilateral L3 spondylolysis and grade 1 spondylolisthesis. Advanced degenerative changes at L3-4 and L4-5. Reproductive organs: Fibroids. IMPRESSION: No acute abnormality in the chest, abdomen or pelvis. The preliminary [facility] report was reviewed. RADIATION DOSE DELIVERED: 453.86mGy.cm Total DLP DATA REPOSITORY: All CT scans at this facility are submitted to the National Radiology Data Registry (NRDR) Dose Index Registry (DIR) with the [employer] (A[employer]). RADIATION OPTIMIZATION: All CT scans at this facility use at least one of these dose optimization techniques: automated exposure control; mA and/or kV adjustment per patient size (includes targeted exams where dose is matched to clinical indication); or iterative reconstruction.
[2025-08-31 19:55] LABS: Troponin I 4 ng/L (<35)
[2025-08-31] MEDS: Normal Saline - Diluent 50 ML VIAL IJ (20:23)
[2025-08-31] MEDS: Omnipaque 350 MG/ML 100 ML BTL IJ (20:23)
[2025-08-31] MEDS: Normal Saline Flush 10 ML SYR IVP (20:23)
--- NOTE | 2025-08-31 21:27 | DI.[facility]_ITS ---
PROCEDURE INFORMATION: Exam: CTA Chest With Contrast CTA Abdomen and Pelvis With Contrast Exam date and time: 08/31/2025 8:20 PM Age: 75 years old Clinical indication: Abdominal pain; Generalized; Prior surgery; Surgery date: 6+ months; Surgery type: Hernia repair, shoulder repair, lumpectomy, spinal surgery; Bilat shoulder and abd pain, HX of bladder CA TECHNIQUE: Imaging protocol: Computed tomographic angiography of the chest with contrast. Exam focused on the arteries. Computed tomographic angiography of the abdomen and pelvis with contrast. Exam focused on the arteries. 3D rendering (Not supervised by radiologist): MIP and/or 3D reconstructed images were created by the technologist. Radiation optimization: All CT scans at this facility use at least one of these dose optimization techniques: automated exposure control; mA and/or kV adjustment per patient size (includes targeted exams where dose is matched to clinical indication); or iterative reconstruction. Contrast material: OMNIPAQUE 350; Contrast volume: 60 ml; Contrast route: INTRAVENOUS (IV); COMPARISON: CT CHEST PE CTA 07/27/2025 7:05 PM FINDINGS: Tubes, catheters and devices: Left shoulder prosthesis. VASCULATURE: Pulmonary arteries: No evidence of pulmonary embolism. Aorta: Moderate atherosclerotic calcifications of the thoracic aorta. There is moderate diffuse atherosclerotic disease of the abdominal aorta. Celiac and mesenteric arteries: No occlusion or significant stenosis. Renal arteries: No occlusion or significant stenosis. Right iliac arteries: No occlusion or significant stenosis. Left iliac arteries: No occlusion or significant stenosis. CHEST: Trachea: The central airways clear. Lungs: There is diffuse pulmonary emphysema. Linear bibasilar opacities most consistent with subsegmental atelectasis. Pleural spaces: Unremarkable. No pneumothorax. No pleural effusion. Heart: No cardiomegaly or pericardial effusion. ABDOMEN AND PELVIS: Liver: The liver is unremarkable. Gallbladder and biliary ducts: No gallstones. Nondistended. No wall thickening. Pancreas: The pancreas is unremarkable. Spleen: Multiple calcified granulomas noted in the spleen. No splenomegaly. Adrenal glands: The adrenal glands are unremarkable. Kidneys and ureters: Stable renal cysts. Stomach and bowel: Moderate stool throughout the colon and rectum. Appendix: Normal appendix. Intraperitoneal space: Unremarkable. No free air. No significant fluid collection. Urinary bladder: Unremarkable. No mass. Reproductive: Degenerating fibroid within the uterus. Lymph nodes: No axillary adenopathy. Bones/joints: The lumbar spine demonstrates moderate degenerative changes at multiple levels. No acute fracture. Soft tissues: Soft tissues are unremarkable as visualized. Soft tissues are unremarkable as visualized. IMPRESSION: No evidence of pulmonary embolism. No acute findings. Chronic noncritical findings as described above. Dictated and Authenticated by: Radha Baron MD. Orderin Kar Wesley MD
[2025-08-31 21:47] LABS: Troponin I 3 ng/L (<35)
[2025-08-31 21:56] VITALS: BP 154/82; PULSE 84; RESP 16; O2SAT 95
[2025-09-02 10:41] LABS: Lyme Ab w Rflx to Lyme Confirm Negative (Negative)
[2025-09-04 14:36] LABS: B. miyamotoi PCR Negative (Negative); Babesia divergens/MO-1 Negative (Negative); Ehrlichia muris eauclairensis Negative (Negative)
== END 2025-08-31 21:57 | disposition home or self-care (01) ==
PROVIDERS: Emergency Provider Nurse Practitioner Family; PCP Nurse Practitioner Adult Health
DX: M25.512 Pain in left shoulder (principal); M25.511 Pain in right shoulder; R10.9 Unspecified abdominal pain; Z59.811 Housing instability, housed, with risk of homelessness
CPT/HCPCS: 99283; 99285; 71275; 74177; 80053; 82805; 83690; 85652; 87637; 87798; 93005; 83735; 83880; 84484; 85025; 85379; 86140; 86618; 93010; J3490